=== PATIENT | female | born 1980 ===

== ENCOUNTER 2016-11-08 00:29 | Inpatient (IN) | payer OTHER ==
[2016-11-08] MEDS ORDERED: Labetalol 25mg/5ml Syringe IV STA (01:17)
[2016-11-08] MEDS ORDERED: Aspirin 325 mg EC Tablets PO STA (01:18)
[2016-11-08] MEDS ORDERED: Labetalol 25mg/5ml Syringe ONE (01:23)
[2016-11-08] MEDS ORDERED: Aspirin 325 mg EC Tablets PO ONE (01:23)
[2016-11-08 01:30] LABS: BASO # 0.1 K/uL (0.0-0.2); BASO % 0.5 % (0.0-2.0); EOS # 0.2 K/uL (0.0-0.7); EOS % 1.2 % (0.0-4.0); HEMOGLOBIN 8.7 g/dL (11.0-16.0); LYMPH # 1.8 K/uL (1.0-4.3); LYMPH % 9.8 % (20.0-40.0); MEAN CELL VOLUME 68.6 fL (81.0-99.0); MEAN CORPUSCULAR HEMOGLOBIN 21.7 pg (27.0-31.0); MEAN CORPUSCULAR HGB CONC 31.6 g/dL (33.0-37.0); MONO # 0.8 K/uL (0.0-0.8); MONO % 4.3 % (0.0-10.0); NEUT # 15.4 K/uL (1.8-7.0); NEUT % 84.2 % (50.0-75.0); PLATELET COUNT 246 K/uL (130-400); RBC 4.01 Mil/uL (3.80-5.20); RED CELL DISTRIBUTION WIDTH 20.7 % (11.5-14.5); WHITE BLOOD COUNT 18.3 K/uL (4.8-10.8)
[2016-11-08 01:38] LABS: ALBUMIN 3.8 g/dL (3.5-5.0); PROTHROMBIN TIME 11.2 SECONDS (9.7-12.2)
[2016-11-08 01:41] LABS: ALB/GLOB RATIO 1.2 (1.0-2.1); ALT/SGPT 29 U/L (9-52); AST/SGOT 29 U/L (14-36); BLOOD UREA NITROGEN 55 mg/dL (7-17); CALCIUM 8.9 mg/dl (8.6-10.4); GFR AFRICAN-AMERICAN 8; GFR NON-AFRICAN AMERICAN 7
[2016-11-08 01:43] LABS: SQUAMOUS EPITHIAL 1 /hpf (0-5); URINE BILIRUBIN NEGATIVE (NEGATIVE); URINE BLOOD 1+ (NEGATIVE); URINE CLARITY Clear (Clear); URINE COLOR Straw (YELLOW); URINE GLUCOSE (UA) 1+ mg/dL (Normal); URINE LEUKOCYTE ESTERASE 1+ Leu/uL (Negative); URINE NITRATE NEGATIVE (NEGATIVE); URINE PROTEIN 2+ mg/dL (NEGATIVE); URINE UROBILINOGEN NORMAL mg/dL (0.2-1.0)
[2016-11-08 01:50] LABS: CK-MB 5.22 ng/mL (0.0-3.38)
[2016-11-08] MEDS ORDERED: Potassium Chloride 10 mEq ER Tab PO STA (02:03)
[2016-11-08] MEDS ORDERED: Heparin 25,000units in D5W 250 ML IV ONE (02:13)
[2016-11-08] MEDS ORDERED: Nitroglycerin 2% Ointment Foilpak UD TOP STA (02:15)
[2016-11-08 02:18] LABS: HCG,QUALITATIVE URINE NEGATIVE (NEGATIVE)
[2016-11-08] MEDS ORDERED: Potassium Chloride 20 mEq/15 ml LIQ UD ONE (02:28)
[2016-11-08] MEDS ORDERED: Nitroglycerin 2% Ointment Foilpak UD TOP ONE (02:28)
[2016-11-08 02:33] LABS: B-TYPE NATRIURETIC PEPTIDE 107000 pg/mL (0-450)
[2016-11-08] MEDS ORDERED: Heparin25000 units/250ml 1/2NS 25,000 UNITS/250 ML BAG IV ONE (02:42)
[2016-11-08 03:06] LABS: EOSINOPHIL 2 % (0-4); LYMPHOCYTE 9 % (20-40); MONOCYTE 3 % (0-10); NEUTROPHIL 86 % (50-75); PLATELET ESTIMATE NORMAL (NORMAL); TOTAL CELLS COUNTED 100
[2016-11-08] MEDS ORDERED: Heparin25000 units/250ml 1/2NS 25,000 UNITS/250 ML BAG IV SCH (03:15)
[2016-11-08] MEDS ORDERED: cefTRIAXone IV 1 gm in Dextros 50 ML IV ONE (03:21)
[2016-11-08] MEDS ORDERED: Azithromycin 500 MG in Sodium Chloride 0.9% 250 ML IV STA (03:21)
--- NOTE | 2016-11-08 03:39 | C.PDOC ---
History Of Present Illness 36 year old female presents to the ED with complaints of left sided chest pain and SOB for three days and associated with non-productive cough. Patient notes a history of anemia and HTN for years without the use of any medication. She admits to smoking half a pack of cigarettes a day and is unable to sleep because of the chest pain and SOB. Time Seen by Provider: 11/08/16 01:09 Chief Complaint (Nursing): Chest Pain History Per: Patient History/Exam Limitations: no limitations Onset/Duration Of Symptoms: Days (3) Current Symptoms Are (Timing): Still Present Quality: "Pain" Associated Symptoms: Other (non-productive cough ). denies: Fever, Chills Recent travel outside of the [place]: No Past Medical History Reviewed: Historical Data, Nursing Documentation, Vital Signs Vital Signs: Last Vital Signs Temp 97.7 F 11/08/16 06:00 Pulse 63 11/08/16 06:50 Resp 18 11/08/16 06:50 BP 169/113 H 11/08/16 06:38 Pulse Ox 100 11/08/16 06:50 - Medical History PMH: Anemia, HTN Family History: States: Unknown Family Hx - Social History Hx Alcohol Use: Yes Hx Substance Use: No - Immunization History Hx Tetanus Toxoid Vaccination: No Hx Influenza Vaccination: No Hx Pneumococcal Vaccination: No Review Of Systems Constitutional: Negative for: Fever, Chills Cardiovascular: Positive for: Chest Pain. Negative for: Palpitations Respiratory: Positive for: Shortness of Breath. Negative for: Cough Gastrointestinal: Negative for: Nausea, Vomiting, Abdominal Pain, Diarrhea Physical Exam - Physical Exam Appears: Non-toxic, No Acute Distress, Other (patient much older than stated age ) Skin: Warm, Dry Head: Atraumatic Oral Mucosa: Moist Neck: Supple Chest: Symmetrical, No Deformity Cardiovascular: Rhythm Regular, Other (heart sounds distant ) Gastrointestinal/Abdominal: Soft, No Tenderness, No Distention, No Guarding, No Rebound, Other (abdomen is thin ) Extremity: Normal ROM, No Tenderness, No Other (lower extremities no clubbing, no edema ) ED Course And Treatment - Laboratory Results Result Diagrams: 11/08/16 01:23 11/08/16 04:15 Lab Interpretation: Abnormal (trop 0.7H, K+ 2.2 low, creat 6.9 H) Urine POC: Negative ECG: Interpreted By Me ECG Rhythm: Sinus Rhythm, Sinus Tachycardia ECG Interpretation: Abnormal Interpretation Of ECG: repeat EKG NSR 78, ST dep lateral leads, persistent T^ inversions O2 Sat by Pulse Oximetry: 94 (room air ) Pulse Ox Interpretation: Abnormal - Radiology CXR: Interpreted by Me CXR Interpretation: Yes: Infiltrates (RLL PNA, cardiomegaly, + mild CHF) Progress Note: labetolol IV, NTP, ASA, heparin bolus and drip, Cardizem bolus and drip, bipap, blood cultures and Rocephin/Azithromycin. Pt appears uvolemic , pending diuresis vs hydration for acute renal insufficiency Reevaluation Time: 03:39 Reassessment Condition: Improved Medical Decision Making Medical Decision Making: Uncontrolled HTN and anemia for "years" noncompliant w meds and f/u with PMD Dr. Wang. smoker 1/2 ppd may predispose to RLL PNA CHF/NSTEMI/Renal Failure may be related to uncontrolled HTN Curious HYPOkalemia in renal failure- T^ inversions c/w low K+ KCL PO given, pending repeat chemistry bipap for hypoxiia and pna/chf picture on CXR Disposition Doctor Will See Patient In The: Hospital Counseled Patient/Family Regarding: Studies Performed, Diagnosis - Disposition Disposition: HOSPITALIZED Disposition Time: 03:43 Condition: FAIR - Clinical Impression Clinical Impression: NSTEMI (non-ST elevated myocardial infarction), Hypokalemia, Renal failure, Anemia, Hypertensive urgency, Pneumonia - Scribe Statement The provider has reviewed the documentation as recorded by the Chapinibjuan Brink All medical record entries made by the Chapinibjuan were at my direction and personally dictated by me. I have reviewed the chart and agree that the record accurately reflects my personal performance of the history, physical exam, medical decision making, and the department course for this patient. I have also personally directed, reviewed, and agree with the discharge instructions and disposition.
[2016-11-08] MEDS ORDERED: Azithromycin 500mg/250ML NS 500 MG/250 ML BAG IVPB ONE (03:42)
[2016-11-08 03:51] LABS: ABG ALLEN TEST POS; ARTERIAL BLOOD GAS HCO3 23.1 mmol/L (21-28); ARTERIAL BLOOD GAS O2 SAT 94.4 % (95-98); ARTERIAL BLOOD GAS PCO2 37 mm/Hg (35-45); ARTERIAL BLOOD GAS PH 7.39 (7.35-7.45); ARTERIAL BLOOD GAS PO2 63 mm/Hg (80-100); ARTERIAL BLOOD GAS TCO2 23.5 mmol/L (22-28)
--- NOTE | 2016-11-08 04:07 | CP.PCM.CON ---
History of Present Illness - History of Present Illness History of Present Illness: 36 y/o female with h/o anemia and HTN (was prescribed medications which she didnot take) presents to ER with left sided chest pain and worsening difficulty breathing x 5 days .No associated palpitations,radiation of pain.C/o nausea x 2 days ,no vomiting or diarrhea.In ER she was found to be hypoxic ,tachycardic and hypertensive.Labs with elevated WBC,microcytic anemia,hypokalemia,renal insufficiency,elevated troponin and BNP. Received IV labetalol,placed on 100NRBFM,started on IV heparin and cardizem 3 months ago she went to a physician for leg swelling,labs done and given meds for high blood pressure and anemia.Patient states her Kidneys were normal at that time. Review of Systems - Review of Systems Systems not reviewed;Unavailable: Respiratory Distress - Constitutional Constitutional: Fatigue. absent: Anorexia, Chills, Fever - EENT Eyes: absent: Change in Vision Nose/Mouth/Throat: absent: Nasal Congestion, Dry Mouth - Cardiovascular Cardiovascular: Chest Pain, Chest Pain at Rest, Dyspnea. absent: Claudication, Edema, Pain Radiating to Arm/Neck/Jaw, Rapid Heart Rate Additional comments: had leg edema 3 months ago which is almost normal now as per patient - Respiratory Respiratory: Dyspnea. absent: Chest Congestion, Excessive Mucous Production - Gastrointestinal Gastrointestinal: Nausea. absent: Abdominal Pain, Change in Bowel Habits, Coffee Ground Emesis, Vomiting - Genitourinary Genitourinary: absent: Change in Urinary Stream, Hematuria - Reproductive: Female Reproductive:Female: absent: Heavy Menses - Musculoskeletal Musculoskeletal: absent: Back Pain, Muscle Weakness - Integumentary Integumentary: absent: Bleeding Lesions, Pruritus, Rash - Neurological Neurological: absent: Convulsions, Dizziness, Numbness - Endocrine Endocrine: absent: Cold Intolorance, Excessive Sweating, Heat Intolorance - Hematologic/Lymphatic Hematologic: absent: Easy Bleeding, Easy Bruising Past Patient History - Past Medical History & Family History Past Medical History?: Yes - Past Social History Smoking Status: Light Smoker < 10 Cigarettes Daily Occupation: works in a [employer] Alcohol: Occasional Drugs: Denies - CARDIAC Hx Hypertension: Yes - HEMATOLOGICAL/ONCOLOGICAL Hx Anemia: Yes - PSYCHIATRIC Hx Substance Use: No - SURGICAL HISTORY Hx Surgeries: No Meds Allergies/Adverse Reactions: Allergies Allergy/AdvReac Type Severity Reaction Status Date / Time No Known Allergies Allergy Verified 11/08/16 00:53 - Medications Medications: Current Medications Heparin Sodium/Sodium Chloride (Heparin 74456 Units/250ml 1/2 Normal Saline) 25 ,000 units in 250 mls @ 8.927 mls/hr IV .Q24H ISABELLA; 12 UNITS/KG/HR PRN Reason: Protocol Diltiazem HCl 125 mg/ Sodium (Chloride) 125 mls @ 10 mls/hr IV .[id number] ISABELLA PRN Reason: 10 MG/HR Last Admin: 11/08/16 03:37 Dose: 10 mls/hr Azithromycin 500 mg/ Sodium (Chloride) 250 mls @ 250 mls/hr IV STAT STA Stop: 11/08/16 04:20 Last Admin: 11/08/16 03:59 Dose: 250 mls/hr Physical Exam - Constitutional Appears: In Acute Distress Additional comments: short of breath without O2 - Head Exam Head Exam: ATRAUMATIC, NORMAL INSPECTION, NORMOCEPHALIC - Eye Exam Eye Exam: EOMI, Normal appearance Pupil Exam: NORMAL ACCOMODATION, PERRL - ENT Exam ENT Exam: Mucous Membranes Dry - Neck Exam Neck exam: Positive for: Full Rom, Normal Inspection - Respiratory Exam Respiratory Exam: Clear to Auscultation Bilateral. absent: Rhonchi, Wheezes - Cardiovascular Exam Cardiovascular Exam: REGULAR RHYTHM. absent: JVD - GI/Abdominal Exam GI & Abdominal Exam: Normal Bowel Sounds, Soft. absent: Tenderness - Extremities Exam Extremities exam: Positive for: full ROM, normal inspection, pedal pulses present. Negative for: calf tenderness, joint swelling Additional comments: bilateral trace leg edema - Back Exam Back exam: NORMAL INSPECTION. absent: CVA tenderness (L) - Neurological Exam Neurological exam: Alert, Oriented x3 - Skin Skin Exam: Normal Color, Warm Results - Vital Signs Recent Vital Signs: Last Vital Signs Temp 98.2 F 11/08/16 00:49 Pulse 99 H 11/08/16 01:27 Resp 26 H 11/08/16 01:27 BP 241/161 H 11/08/16 01:27 Pulse Ox 94 L 11/08/16 03:45 - Labs Result Diagrams: 11/08/16 01:23 11/08/16 01:23 Labs: Laboratory Results - last 24 hr 11/08/16 11/08/16 11/08/16 01:23 01:23 01:23 WBC 18.3 H RBC 4.01 Hgb 8.7 L Hct 27.5 L MCV 68.6 L MCH 21.7 L MCHC 31.6 L RDW 20.7 H Plt Count 246 MPV 9.0 Neut % (Auto) 84.2 H Lymph % (Auto) 9.8 L Stephenson % (Auto) 4.3 Eos % (Auto) 1.2 Baso % (Auto) 0.5 Neut # 15.4 H Lymph # 1.8 Stephenson # 0.8 Eos # 0.2 Baso # 0.1 Neutrophils % (Manual) 86 H Lymphocytes % (Manual) 9 L Monocytes % (Manual) 3 Eosinophils % (Manual) 2 Platelet Estimate Normal PT 11.2 INR 1.0 APTT 27 Puncture Site pCO2 pO2 HCO3 ABG pH ABG Total CO2 ABG O2 Saturation ABG Base Excess Sd Test ABG Potassium A-a O2 Difference Respiratory Index Glucose Lactate FiO2 Sodium Potassium Chloride Carbon Dioxide Anion Gap BUN Creatinine Est GFR ( Amer) Est GFR (Non-Af Amer) Random Glucose Calcium Total Bilirubin AST ALT Alkaline Phosphatase Total Creatine Kinase CK-MB (Mass) Troponin I, Quant NT-Pro-B Natriuret Pep Total Protein Albumin Globulin Albumin/Globulin Ratio Arterial Blood Potassium Urine Color Straw Urine Clarity Clear Urine pH 6.0 Ur Specific [place] 1.009 Urine Protein 2+ H Urine Glucose (UA) 1+ Urine Ketones Negative Urine Blood 1+ H Urine Nitrate Negative Urine Bilirubin Negative Urine Urobilinogen Normal Ur Leukocyte Esterase 1+ H Urine WBC (Auto) 31 H Urine RBC (Auto) 4 H Ur Squamous Epith Cells 1 Urine HCG, Qual Negative Alcohol, Quantitative 11/08/16 11/08/16 01:23 03:48 WBC RBC Hgb Hct MCV MCH MCHC RDW Plt Count MPV Neut % (Auto) Lymph % (Auto) Stephenson % (Auto) Eos % (Auto) Baso % (Auto) Neut # Lymph # Stephenson # Eos # Baso # Neutrophils % (Manual) Lymphocytes % (Manual) Monocytes % (Manual) Eosinophils % (Manual) Platelet Estimate PT INR APTT Puncture Site Rr pCO2 37 pO2 63 L HCO3 23.1 ABG pH 7.39 ABG Total CO2 23.5 ABG O2 Saturation 94.4 L ABG Base Excess -2.2 L Sd Test Pos ABG Potassium 2.7 L A-a O2 Difference 604.0 Respiratory Index 9.6 Glucose 174 H Lactate 0.6 L FiO2 100.0 Sodium 131 L 130.0 L Potassium 2.2 L* Chloride 92 L 95.0 L Carbon Dioxide 22 Anion Gap 19 BUN 55 H Creatinine 6.9 H Est GFR ( Amer) 8 Est GFR (Non-Af Amer) 7 Random Glucose 115 H Calcium 8.9 Total Bilirubin 0.7 AST 29 ALT 29 Alkaline Phosphatase 111 Total Creatine Kinase 170 H CK-MB (Mass) 5.22 H Troponin I, Quant 0.7190 H* NT-Pro-B Natriuret Pep 324917 H Total Protein 7.0 Albumin 3.8 Globulin 3.2 Albumin/Globulin Ratio 1.2 Arterial Blood Potassium 2.7 L Urine Color Urine Clarity Urine pH Ur Specific [place] Urine Protein Urine Glucose (UA) Urine Ketones Urine Blood Urine Nitrate Urine Bilirubin Urine Urobilinogen Ur Leukocyte Esterase Urine WBC (Auto) Urine RBC (Auto) Ur Squamous Epith Cells Urine HCG, Qual Alcohol, Quantitative < 10 - EKG Data EKG Interpreted by: Myself EKG shows normal: Sinus rhythm - EKG Data EKG comments: T inversions in lateral leads,ST depressionc - Imaging and Cardiology Chest x-ray Status: Image reviewed by me (enlarged heart,Right sided infiltrate, ?CHF) Assessment & Plan - Assessment and Plan (Free Text) Assessment: 1.Respiratory Insufficiency and hypoxia-Pneumonia r/o CHF BIPAP,antibiotics f/u with cultures 2.NSTEMI /CHF-Elevated troponin and BNP on IV heparin,received aspirin and NTG add beta sidney ECHO 3.Renal insufficiency-f/u BUN/Cr Renal ultrasound 4.Electrolyte imbalance-Hypokalemia/Hyponatremia- potassium given in ER.Rpt labs and replace as needed 5.Microcytic anemia-denies GI blood loss or heavy menstrual bleeding. iron ,TIBC
[2016-11-08] MEDS ORDERED: cefTRIAXone IV 1 gm in Dextros 50 ML IVPB ONE (04:15)
[2016-11-08 04:19] LABS: ALBUMIN 3.4 g/dL (3.5-5.0)
[2016-11-08 04:22] LABS: ALB/GLOB RATIO 1.1 (1.0-2.1); CALCIUM 8.5 mg/dl (8.6-10.4)
[2016-11-08 05:56] LABS: ABG ALLEN TEST POS; ARTERIAL BLOOD GAS HCO3 23.6 mmol/L (21-28); ARTERIAL BLOOD GAS HEMOGLOBIN 8.2 g/dL (11.7-17.4); ARTERIAL BLOOD GAS O2 SAT 99.3 % (95-98); ARTERIAL BLOOD GAS PCO2 37 mm/Hg (35-45); ARTERIAL BLOOD GAS PO2 252 mm/Hg (80-100)
[2016-11-08] MEDS ORDERED: Nitroglycerin 2% Ointment Foilpak UD TOP SCH ×2 (06:00)
[2016-11-08] MEDS ORDERED: Furosemide 100 MG in Sodium Chloride 0.9% 90 ML IVP SCH (09:00)
[2016-11-08] MEDS ORDERED: Nitroglycerin 50mg in D5W 50 MG/250 ML BOTTLE IV SCH (09:00)
[2016-11-08] MEDS: Furosemide 100 MG in Sodium Chloride 0.9% 90 ML IV SCH ×2 (09:34→20:44)
--- NOTE | 2016-11-08 09:45 | CP.PCM.CON ---
History of Present Illness - History of Present Illness History of Present Illness: 36 y/o female with h/o anemia and HTN (was prescribed medications which she didnot take) presents to ER with left sided chest pain and worsening difficulty breathing x 5 days .No associated palpitations,radiation of pain.C/o nausea x 2 days ,no vomiting or diarrhea.In ER she was found to be hypoxic ,tachycardic and hypertensive.Labs with elevated WBC,microcytic anemia,hypokalemia,renal insufficiency,elevated troponin and BNP. Received IV labetalol,placed on 100NRBFM,started on IV heparin and cardizem 3 months ago she went to a physician for leg swelling,labs done and given meds for high blood pressure and anemia.Patient states her Kidneys were normal at that time. PMH: CHRONIC ANEMIA HTN PSH- NONE FH- MOTHER EXP- HAD ESRD ON DIALYSIS FROM [facility]-HEAV[facility] SMOKER NO ILLICITS, ETOH MEDS- MANY NSAIDs RECENTLY Review of Systems - Constitutional Constitutional: Fatigue, Headache, Weakness - Respiratory Respiratory: Cough, Dyspnea on Exertion - Gastrointestinal Gastrointestinal: Nausea, Vomiting - Genitourinary Genitourinary: Difficulty Urinating - Musculoskeletal Musculoskeletal: Arthralgias, Muscle Cramps, Muscle Weakness, Stiffness - Neurological Neurological: Weakness Past Patient History - Past Medical History & Family History Past Medical History?: Yes - Past Social History Smoking Status: Heavy Smoker > 10 Cigarettes Daily Chewing Tobacco Use: No Cigar Use: No - CARDIAC Hx Hypertension: Yes - PULMONARY Hx Respiratory Disorders: No - NEUROLOGICAL Hx Neurological Disorder: No - HEENT Hx HEENT Problems: Yes Other/Comment: eyeglasses for reading - RENAL Hx Chronic Kidney Disease: No - ENDOCRINE/METABOLIC Hx Endocrine Disorders: No - HEMATOLOGICAL/ONCOLOGICAL Hx Anemia: Yes - INTEGUMENTARY Hx Dermatological Problems: No - MUSCULOSKELETAL/RHEUMATOLOGICAL Hx Musculoskeletal Disorders: No Hx Falls: Yes - GASTROINTESTINAL Hx Gastrointestinal Disorders: No - GENITOURINARY/GYNECOLOGICAL Hx Genitourinary Disorders: No - PSYCHIATRIC Hx Substance Use: No - SURGICAL HISTORY Hx Surgeries: No - ANESTHESIA Hx Anesthesia: No Hx Anesthesia Reactions: No Hx Malignant Hyperthermia: No Has any member of the family had a problem w/ anesthesia?: No Meds Allergies/Adverse Reactions: Allergies Allergy/AdvReac Type Severity Reaction Status Date / Time No Known Allergies Allergy Verified 11/08/16 00:53 - Medications Medications: Current Medications Amlodipine Besylate (Norvasc) 5 mg PO DAILY [facility] Aspirin (Ecotrin) 81 mg PO DAILY [facility] Last Admin: 11/08/16 09:34 Dose: 81 mg Famotidine (Pepcid) 20 mg IVP DAILY [facility] Hydralazine HCl (Apresoline) 25 mg PO QID [facility] Heparin Sodium/Sodium Chloride (Heparin 37451 Units/250ml 1/2 Normal Saline) 25 ,000 units in 250 mls @ 8.927 mls/hr IV .Q24H ISABELLA; 12 UNITS/KG/HR PRN Reason: Protocol Last Admin: 11/08/16 04:10 Dose: Not Given Ceftriaxone Sodium 1 gm/ (Sodium Chloride) 100 mls @ 100 mls/hr IVPB DAILY [facility] Azithromycin 500 mg/ Sodium (Chloride) 250 mls @ 250 mls/hr IVPB DAILY [facility] Nitroglycerin/Dextrose (Nitroglycerin 50 Mg/250 Ml D5w) 50 mg in 250 mls @ 7.5 mls/hr IV .Q24H ISABELLA; 25 MCG/MIN PRN Reason: Protocol Last Admin: 11/08/16 09:18 Dose: 25 mcg/min, 7.5 mls/hr Potassium Chloride (Potassium Chloride 20 Meq/100 Ml) 20 meq in 100 mls @ 50 mls/hr IVPB Q2 ISABELLA Stop: 11/08/16 13:59 Last Admin: 11/08/16 09:30 Dose: 50 mls/hr Furosemide 100 mg/ Sodium (Chloride) 100 mls @ 10 mls/hr IV .Q10H ISABELLA PRN Reason: 10 MG/HR Last Admin: 11/08/16 09:34 Dose: 10 mls/hr Pneumococcal Polyvalent Vaccine (Pneumovax 23 Vaccine) 0.5 ml IM .ONCE ONE Stop: 11/10/16 10:01 Physical Exam - Constitutional Appears: In Acute Distress, Agitated - Head Exam Head Exam: ATRAUMATIC, NORMAL INSPECTION - Eye Exam Eye Exam: EOMI, Normal appearance - Neck Exam Neck exam: Positive for: Normal Inspection. Negative for: Tenderness - Respiratory Exam Respiratory Exam: Rales, Respiratory Distress - Cardiovascular Exam Cardiovascular Exam: REGULAR RHYTHM, +S1 - GI/Abdominal Exam GI & Abdominal Exam: Soft. absent: Tenderness - Extremities Exam Extremities exam: Positive for: normal inspection, tenderness - Neurological Exam Neurological exam: CN II-XII Intact, Oriented x3 - Skin Skin Exam: Dry, Warm Results - Vital Signs Recent Vital Signs: Last Vital Signs Temp 97.6 F 11/08/16 08:00 Pulse 75 11/08/16 09:18 Resp 24 11/08/16 09:18 BP 185/129 H 11/08/16 09:34 Pulse Ox 100 11/08/16 09:18 - Labs Result Diagrams: 11/08/16 01:23 11/08/16 04:15 Labs: Laboratory Results - last 24 hr 11/08/16 11/08/16 11/08/16 03:48 04:15 05:10 Puncture Site Rr R rad pCO2 37 37 pO2 63 L 252 H HCO3 23.1 23.6 ABG pH 7.39 7.40 ABG Total CO2 23.5 24.0 ABG O2 Saturation 94.4 L 99.3 H ABG Base Excess -2.2 L -1.7 ABG Hemoglobin 8.2 L ABG Carboxyhemoglobin 2.9 H POC ABG HHb (Measured) 0.7 ABG Methemoglobin 1.5 Sd Test Pos Pos ABG Potassium 2.7 L A-a O2 Difference 604.0 415.0 Respiratory Index 9.6 1.6 Hgb O2 Saturation 94.9 L Sodium 130.0 L 128 L Chloride 95.0 L 90 L Glucose 174 H Lactate 0.6 L FiO2 100.0 100.0 Potassium 2.7 L Carbon Dioxide 21 L Anion Gap 20 BUN 56 H Creatinine 6.9 H Est GFR ( Amer) 8 Est GFR (Non-Af Amer) 7 Random Glucose 169 H Calcium 8.5 L Total Bilirubin 0.6 AST 30 ALT 32 Alkaline Phosphatase 112 Total Protein 6.5 Albumin 3.4 L Globulin 3.1 Albumin/Globulin Ratio 1.1 TSH 3rd Generation 2.23 Arterial Blood Potassium 2.7 L Assessment & Plan (1) Proteinuria Status: Acute (2) NSTEMI (non-ST elevated myocardial infarction) Status: Acute (3) AMPARO (acute kidney injury) Status: Acute (4) CHF (congestive heart failure) Status: Acute (5) Hypokalemia Status: Acute (6) Hypertensive emergency Status: Acute - Assessment and Plan (Free Text) Plan: RENAL US CHECK SEROLOGIES, IMMUNOLOGICS CONTROL BP REPLETE K MONITOR UO DIALYSIS IF NOT BETTER- DISCUSSED WITH FAMILY
[2016-11-08 09:57] LABS: BASO # 0.1 K/uL (0.0-0.2); BASO % 0.6 % (0.0-2.0); EOS # 0.2 K/uL (0.0-0.7); EOS % 1.3 % (0.0-4.0); LYMPH # 1.9 K/uL (1.0-4.3); LYMPH % 11.9 % (20.0-40.0); MEAN CORPUSCULAR HEMOGLOBIN 21.9 pg (27.0-31.0); MEAN CORPUSCULAR HGB CONC 31.7 g/dL (33.0-37.0); MEAN PLATELET VOLUME 7.6 fL (7.2-11.7); MONO # 0.6 K/uL (0.0-0.8); MONO % 3.8 % (0.0-10.0); NEUT # 12.8 K/uL (1.8-7.0); NEUT % 82.4 % (50.0-75.0); RBC 3.63 Mil/uL (3.80-5.20); RED CELL DISTRIBUTION WIDTH 21.2 % (11.5-14.5); WHITE BLOOD COUNT 15.6 K/uL (4.8-10.8)
[2016-11-08] MEDS ORDERED: Azithromycin 500 MG in Sodium Chloride 0.9% 250 ML IVPB SCH (10:00)
[2016-11-08 10:08] LABS: IRON 35 ug/dL (37-170)
--- NOTE | 2016-11-08 10:08 | RAD ---
HISTORY: R/O INFILTRATE COMPARISON: No prior. FINDINGS: LUNGS: There is pulmonary venous congestion, interstitial edema and pulmonary redistribution. PLEURA: There are probable small pleural effusions and fluid in the horizontal fissure. No pneumothorax. CARDIOVASCULAR: There is moderate cardiomegaly. OSSEOUS STRUCTURES: No significant abnormalities. VISUALIZED UPPER ABDOMEN: Normal. OTHER FINDINGS: None. IMPRESSION: Findings are most compatible with mild congestive heart failure.
[2016-11-08 10:10] LABS: CALCIUM 8.8 mg/dl (8.6-10.4); MAGNESIUM 2.4 mg/dL (1.6-2.3)
--- NOTE | 2016-11-08 10:23 | RAD ---
HISTORY: pneumonia COMPARISON: 11/08/2016. FINDINGS: LUNGS: There is pulmonary venous congestion and redistribution worse since the prior examination. There is bibasilar airspace disease PLEURA: There are bilateral pleural effusions. . No pneumothorax. CARDIOVASCULAR: Normal. OSSEOUS STRUCTURES: No significant abnormalities. VISUALIZED UPPER ABDOMEN: Normal. OTHER FINDINGS: None. IMPRESSION: Bibasilar airspace disease could represent atelectasis or pneumonia in conjunction with bilateral pleural effusions. Also noted is pulmonary venous congestion which could represent a component of worsening congestive heart failure.
[2016-11-08 10:27] LABS: % IRON SATURATION 11 (20-55); TOTAL IRON BINDING CAPACITY 328 ug/dL (250-450)
[2016-11-08 10:37] LABS: CK-MB 3.56 ng/mL (0.0-3.38)
[2016-11-08] MEDS: niCARdipine IV 25 MG in Sodium Chloride 0.9% 240 ML IV PRN ×2 (11:40→20:47)
[2016-11-08 12:28] LABS: COMPLEMENT C4 30.2 mg/dL (14.0-44.0)
[2016-11-08 12:52] LABS: HEPATITIS B SURFACE AG NEGATIVE (NEGATIVE)
[2016-11-08 13:09] LABS: HEPATITIS C ANTIBODY NEGATIVE (NEGATIVE)
--- NOTE | 2016-11-08 14:26 | US ---
PROCEDURE: Ultrasound of the Kidneys HISTORY: AMPARO COMPARISON: None available. TECHNIQUE: Grayscale imaging was performed. FINDINGS: RIGHT KIDNEY: Measures: 10.0 cm. Normal in size, contour with diffuse increased echogenicity. No stone, solid mass lesion or hydronephrosis visualized. LEFT KIDNEY: Measures: 10.2 cm. Normal in size, contour with diffuse increased echogenicity. No stone, solid mass lesion or hydronephrosis visualized. OTHER FINDINGS: None. IMPRESSION: Medical renal disease. No hydronephrosis or nephrolithiasis.
[2016-11-08] MEDS: Heparin25000 units/250ml 1/2NS 25,000 UNITS/250 ML BAG IV SCH (20:52)
[2016-11-08 21:06] LABS: MEAN CELL VOLUME 69.8 fL (81.0-99.0); MEAN CORPUSCULAR HGB CONC 31.4 g/dL (33.0-37.0); MEAN PLATELET VOLUME 7.5 fL (7.2-11.7); RBC 4.09 Mil/uL (3.80-5.20); RED CELL DISTRIBUTION WIDTH 21.1 % (11.5-14.5); WHITE BLOOD COUNT 21.1 K/uL (4.8-10.8)
[2016-11-08 21:07] LABS: CK-MB 2.74 ng/mL (0.0-3.38)
[2016-11-08 21:15] LABS: ALB/GLOB RATIO 1.1 (1.0-2.1); ALBUMIN 3.5 g/dL (3.5-5.0); CALCIUM 8.9 mg/dl (8.6-10.4); MAGNESIUM 2.1 mg/dL (1.6-2.3)
--- NOTE | 2016-11-08 23:29 | CP.PCM.HP ---
History of Present Illness - History of Present Illness History of Present Illness: CC: chest pain and shortness of breath HPI: Mrs Trimble is a 36 yo F who presented to the ED with worsening left sided chest pain and shortness of breath which began 3 days ago. She rated the pain a 8/10. She describes the pain as squeezing. She denied any radiation of pain. She also endorses a non-productive cough which she's had for the past few months. She did not note any remitting factors. Exacerbating factors include activity such as walking a few flights of steps. She states she's had trouble sleeping due to her cough. PMD: PSHx: n/a Medications: An unknown BP med (noncompliant) Allergies: NKA FamHx: Mother , was ESRD on dialysis from [place] Social: half a pack a day smoker for 15 yrs; social drinker; denies illicit drug use Present on Admission - Present on Admission Any Indicators Present on Admission: No Review of Systems - Constitutional Constitutional: Weight Gain. absent: Fever, Night Sweats - EENT Eyes: absent: Blurred Vision, Change in Vision, Pain Ears: absent: Ear Pain Nose/Mouth/Throat: absent: Nasal Congestion - Cardiovascular Cardiovascular: Chest Pain, Chest Pain at Rest, Chest Pain with Activity, Pedal Edema. absent: Pain Radiating to Arm/Neck/Jaw - Respiratory Respiratory: Dyspnea on Exertion, Wheezing. absent: Pain with Coughing - Gastrointestinal Gastrointestinal: absent: Abdominal Pain, Diarrhea - Genitourinary Genitourinary: absent: Dysuria - Musculoskeletal Musculoskeletal: Back Pain. absent: Joint Swelling, Muscle Weakness - Integumentary Integumentary: absent: Erythema, Lesions - Neurological Neurological: absent: Behavioral Changes, Headaches, Tingling - Endocrine Endocrine: absent: Palpitations, Polyuria - Hematologic/Lymphatic Hematologic: absent: Easy Bleeding Past Patient History - Past Medical History & Family History Past Medical History?: Yes - Past Social History Smoking Status: Heavy Smoker > 10 Cigarettes Daily Chewing Tobacco Use: No Cigar Use: No - CARDIAC Hx Hypertension: Yes - PULMONARY Hx Respiratory Disorders: No - NEUROLOGICAL Hx Neurological Disorder: No - HEENT Hx HEENT Problems: Yes Other/Comment: eyeglasses for reading - RENAL Hx Chronic Kidney Disease: No - ENDOCRINE/METABOLIC Hx Endocrine Disorders: No - HEMATOLOGICAL/ONCOLOGICAL Hx Anemia: Yes - INTEGUMENTARY Hx Dermatological Problems: No - MUSCULOSKELETAL/RHEUMATOLOGICAL Hx Musculoskeletal Disorders: No Hx Falls: Yes - GASTROINTESTINAL Hx Gastrointestinal Disorders: No - GENITOURINARY/GYNECOLOGICAL Hx Genitourinary Disorders: No - PSYCHIATRIC Hx Substance Use: No - SURGICAL HISTORY Hx Surgeries: No - ANESTHESIA Hx Anesthesia: No Hx Anesthesia Reactions: No Hx Malignant Hyperthermia: No Has any member of the family had a problem w/ anesthesia?: No Meds Allergies/Adverse Reactions: Allergies Allergy/AdvReac Type Severity Reaction Status Date / Time No Known Allergies Allergy Verified 11/08/16 00:53 Physical Exam - Constitutional Appears: Well, Non-toxic, No Acute Distress - Head Exam Head Exam: NORMAL INSPECTION - Eye Exam Eye Exam: EOMI, Normal appearance, PERRL - ENT Exam ENT Exam: Mucous Membranes Moist - Neck Exam Neck exam: Positive for: Full Rom, Normal Inspection - Respiratory Exam Respiratory Exam: Wheezes, NORMAL BREATHING PATTERN - Cardiovascular Exam Cardiovascular Exam: REGULAR RHYTHM, RRR, +S1, +S2 - GI/Abdominal Exam GI & Abdominal Exam: Normal Bowel Sounds - Rectal Exam Rectal Exam: Deferred - Extremities Exam Extremities exam: Positive for: pedal edema - Neurological Exam Neurological exam: Alert, Oriented x3 - Psychiatric Exam Psychiatric exam: Normal Affect, Normal Mood - Skin Skin Exam: Dry, Intact, Normal Color, Warm Results - Vital Signs Recent Vital Signs: Last Vital Signs Temp 99 F 11/08/16 20:00 Pulse 91 H 11/08/16 22:31 Resp 21 11/08/16 22:31 BP 170/97 H 11/08/16 22:31 Pulse Ox 94 L 11/08/16 22:31 - Labs Result Diagrams: 11/08/16 20:58 11/08/16 20:58 Labs: Laboratory Results - last 24 hr 11/08/16 11/08/16 11/08/16 03:48 04:15 05:10 WBC RBC Hgb Hct MCV MCH MCHC RDW Plt Count MPV Neut % (Auto) Lymph % (Auto) Bollinger % (Auto) Eos % (Auto) Baso % (Auto) Neut # Lymph # Bollinger # Eos # Baso # APTT Puncture Site Rr R rad pCO2 37 37 pO2 63 L 252 H HCO3 23.1 23.6 ABG pH 7.39 7.40 ABG Total CO2 23.5 24.0 ABG O2 Saturation 94.4 L 99.3 H ABG Base Excess -2.2 L -1.7 ABG Hemoglobin 8.2 L ABG Carboxyhemoglobin 2.9 H POC ABG HHb (Measured) 0.7 ABG Methemoglobin 1.5 Sd Test Pos Pos ABG Potassium 2.7 L A-a O2 Difference 604.0 415.0 Respiratory Index 9.6 1.6 Hgb O2 Saturation 94.9 L Sodium 130.0 L 128 L Chloride 95.0 L 90 L Glucose 174 H Lactate 0.6 L FiO2 100.0 100.0 Potassium 2.7 L Carbon Dioxide 21 L Anion Gap 20 BUN 56 H Creatinine 6.9 H Est GFR ( Amer) 8 Est GFR (Non-Af Amer) 7 Random Glucose 169 H Calcium 8.5 L Phosphorus Magnesium Iron TIBC % Saturation Total Bilirubin 0.6 AST 30 ALT 32 Alkaline Phosphatase 112 Total Creatine Kinase CK-MB (Mass) Troponin I, Quant Total Protein 6.5 Albumin 3.4 L Globulin 3.1 Albumin/Globulin Ratio 1.1 Procalcitonin TSH 3rd Generation 2.23 Arterial Blood Potassium 2.7 L Complement C3 Complement C4 Hep Bs Antigen Hepatitis C Antibody Blood Type Blood Type Confirm Antibody Screen 11/08/16 11/08/16 11/08/16 09:45 09:45 09:45 WBC RBC Hgb Hct MCV MCH MCHC RDW Plt Count MPV Neut % (Auto) Lymph % (Auto) Bollinger % (Auto) Eos % (Auto) Baso % (Auto) Neut # Lymph # Bollinger # Eos # Baso # APTT Puncture Site pCO2 pO2 HCO3 ABG pH ABG Total CO2 ABG O2 Saturation ABG Base Excess ABG Hemoglobin ABG Carboxyhemoglobin POC ABG HHb (Measured) ABG Methemoglobin Sd Test ABG Potassium A-a O2 Difference Respiratory Index Hgb O2 Saturation Sodium 131 L Chloride 95 L Glucose Lactate FiO2 Potassium 2.6 L Carbon Dioxide 20 L Anion Gap 19 BUN 57 H Creatinine 7.1 H Est GFR ( Amer) 8 Est GFR (Non-Af Amer) 6 Random Glucose 103 Calcium 8.8 Phosphorus 8.3 H Magnesium 2.4 H Iron 35 L TIBC 328 % Saturation 11 L Total Bilirubin AST ALT Alkaline Phosphatase Total Creatine Kinase 98 CK-MB (Mass) 3.56 H Troponin I, Quant 0.6830 H* Total Protein Albumin Globulin Albumin/Globulin Ratio Procalcitonin 0.37 TSH 3rd Generation Arterial Blood Potassium Complement C3 Complement C4 Hep Bs Antigen Hepatitis C Antibody Blood Type Blood Type Confirm Antibody Screen 11/08/16 11/08/16 11/08/16 09:45 10:19 12:04 WBC 15.6 H RBC 3.63 L Hgb 8.0 L Hct 25.0 L MCV 69.0 L MCH 21.9 L MCHC 31.7 L RDW 21.2 H Plt Count 211 MPV 7.6 Neut % (Auto) 82.4 H Lymph % (Auto) 11.9 L Bollinger % (Auto) 3.8 Eos % (Auto) 1.3 Baso % (Auto) 0.6 Neut # 12.8 H Lymph # 1.9 Bollinger # 0.6 Eos # 0.2 Baso # 0.1 APTT 31 Puncture Site pCO2 pO2 HCO3 ABG pH ABG Total CO2 ABG O2 Saturation ABG Base Excess ABG Hemoglobin ABG Carboxyhemoglobin POC ABG HHb (Measured) ABG Methemoglobin Sd Test ABG Potassium A-a O2 Difference Respiratory Index Hgb O2 Saturation Sodium Chloride Glucose Lactate FiO2 Potassium Carbon Dioxide Anion Gap BUN Creatinine Est GFR ( Amer) Est GFR (Non-Af Amer) Random Glucose Calcium Phosphorus Magnesium Iron TIBC % Saturation Total Bilirubin AST ALT Alkaline Phosphatase Total Creatine Kinase CK-MB (Mass) Troponin I, Quant Total Protein Albumin Globulin Albumin/Globulin Ratio Procalcitonin TSH 3rd Generation Arterial Blood Potassium Complement C3 Complement C4 Hep Bs Antigen Negative Hepatitis C Antibody Negative Blood Type Blood Type Confirm Antibody Screen 11/08/16 11/08/16 11/08/16 12:04 14:00 20:55 WBC RBC Hgb Hct MCV MCH MCHC RDW Plt Count MPV Neut % (Auto) Lymph % (Auto) Bollinger % (Auto) Eos % (Auto) Baso % (Auto) Neut # Lymph # Bollinger # Eos # Baso # APTT Puncture Site pCO2 pO2 HCO3 ABG pH ABG Total CO2 ABG O2 Saturation ABG Base Excess ABG Hemoglobin ABG Carboxyhemoglobin POC ABG HHb (Measured) ABG Methemoglobin Sd Test ABG Potassium A-a O2 Difference Respiratory Index Hgb O2 Saturation Sodium Chloride Glucose Lactate FiO2 Potassium Carbon Dioxide Anion Gap BUN Creatinine Est GFR ( Amer) Est GFR (Non-Af Amer) Random Glucose Calcium Phosphorus Magnesium Iron TIBC % Saturation Total Bilirubin AST ALT Alkaline Phosphatase Total Creatine Kinase 67 CK-MB (Mass) 2.74 Troponin I, Quant 0.5570 H* Total Protein Albumin Globulin Albumin/Globulin Ratio Procalcitonin TSH 3rd Generation Arterial Blood Potassium Complement C3 117.0 Complement C4 30.2 Hep Bs Antigen Hepatitis C Antibody Blood Type A POSITIVE Blood Type Confirm A POSITIVE Antibody Screen Negative 11/08/16 11/08/16 20:58 20:58 WBC 21.1 H RBC 4.09 Hgb 9.0 L Hct 28.6 L MCV 69.8 L MCH 22.0 L MCHC 31.4 L RDW 21.1 H Plt Count 264 MPV 7.5 Neut % (Auto) Lymph % (Auto) Bollinger % (Auto) Eos % (Auto) Baso % (Auto) Neut # Lymph # Bollinger # Eos # Baso # APTT Puncture Site pCO2 pO2 HCO3 ABG pH ABG Total CO2 ABG O2 Saturation ABG Base Excess ABG Hemoglobin ABG Carboxyhemoglobin POC ABG HHb (Measured) ABG Methemoglobin Sd Test ABG Potassium A-a O2 Difference Respiratory Index Hgb O2 Saturation Sodium 136 Chloride 97 L Glucose Lactate FiO2 Potassium 2.7 L Carbon Dioxide 26 Anion Gap 16 BUN 27 H Creatinine 3.9 H Est GFR ( Amer) 16 Est GFR (Non-Af Amer) 13 Random Glucose 113 H Calcium 8.9 Phosphorus 3.4 Magnesium 2.1 Iron TIBC % Saturation Total Bilirubin 1.1 AST 32 ALT 29 Alkaline Phosphatase 111 Total Creatine Kinase CK-MB (Mass) Troponin I, Quant Total Protein 6.6 Albumin 3.5 Globulin 3.1 Albumin/Globulin Ratio 1.1 Procalcitonin TSH 3rd Generation Arterial Blood Potassium Complement C3 Complement C4 Hep Bs Antigen Hepatitis C Antibody Blood Type Blood Type Confirm Antibody Screen Assessment & Plan (1) Chest pain Assessment and Plan: NSTEMI /CHF-Elevated troponin and BNP EKG interpretation by Dr Reno - T inversions in lateral leads, ST depression on IV heparin, received aspirin and NTG add beta sidney ECHO Status: Acute (2) Hypoxia Assessment and Plan: 1.Respiratory Insufficiency and hypoxia - Pneumonia r/o CHF BIPAP f/u with blood/urine cultures f/u mycoplasma pneumoniae serologies azithromycin 500mg ivp daily ceftriaxone 1gm ivp daily mrsa screen legionella AG urine Status: Acute (3) AMPARO (acute kidney injury) Assessment and Plan: Renal insufficiency - f/u BUN/Cr Renal ultrasound Per NephDr Julian worley [11/08]: "RENAL US CHECK SEROLOGIES, IMMUNOLOGICS CONTROL BP REPLETE K MONITOR UO DIALYSIS IF NOT BETTER- DISCUSSED WITH FAMILY" Status: Acute (4) Anemia Assessment and Plan: Microcytic anemia - denies GI blood loss or heavy menstrual bleeding f/u iron, TIBC FOBT collected Status: Acute (5) CHF (congestive heart failure) Assessment and Plan: elevated BNP ECHO Ordered Status: Acute (6) Hypokalemia Assessment and Plan: Electrolyte imbalance - Hypokalemia/Hyponatremia - potassium given in ER. Monitor labs and replace as needed Status: Acute (7) Prophylactic measure Assessment and Plan: pepcid 20mg IVP daily heparin drip Status: Acute
--- NOTE | 2016-11-09 03:06 | CP.PCM.PN ---
<Stew Mendez - Last Filed: 11/09/16 15:26> Subjective - Date & Time of Evaluation Date of Evaluation: 11/09/16 Time of Evaluation: 07:00 - Subjective Subjective: PGY-[address] Garcia's Service: Patient was examined at bedside in the ICU. Patient was surrounded by family and friends. Patient did not appear in acute distress. She stated she was comfortable. Patient was on bipap. She denied chest pain, shortness of breath, abdominal pain, diarrhea, constipation, vomiting, bleeding. Objective - Vital Signs/Intake and Output Vital Signs (last 24 hours): Temp Pulse Resp BP Pulse Ox 99 F 91 H 24 159/88 H 93 L 11/09/16 00:00 11/09/16 02:01 11/09/16 02:01 11/09/16 02:01 11/09/16 02:01 Intake and Output: 11/08/16 11/09/16 18:59 06:59 Intake Total 456.7 287.3 Output Total 250 500 Balance 206.7 -212.7 - Medications Medications: Current Medications Amlodipine Besylate (Norvasc) 5 mg PO DAILY [facility] Last Admin: 11/08/16 09:52 Dose: 5 mg Aspirin (Ecotrin) 81 mg PO DAILY [facility] Last Admin: 11/08/16 09:34 Dose: 81 mg Famotidine (Pepcid) 20 mg IVP DAILY [facility] Last Admin: 11/08/16 09:43 Dose: 20 mg Hydralazine HCl (Apresoline) 25 mg PO Q6 [facility] Last Admin: 11/08/16 23:39 Dose: 25 mg Ceftriaxone Sodium 1 gm/ (Sodium Chloride) 100 mls @ 100 mls/hr IVPB DAILY [facility] Last Admin: 11/08/16 09:52 Dose: 100 mls/hr Azithromycin 500 mg/ Sodium (Chloride) 250 mls @ 250 mls/hr IVPB DAILY [facility] Last Admin: 11/08/16 10:21 Dose: 250 mls/hr Furosemide 100 mg/ Sodium (Chloride) 100 mls @ 10 mls/hr IV .Q10H ISABELLA PRN Reason: 10 MG/HR Last Admin: 11/08/16 20:44 Dose: 10 mls/hr Nicardipine HCl 25 mg/ Sodium (Chloride) 250 mls @ 50 mls/hr IV .Q5H PRN; Protocol; 5 MG/HR PRN Reason: PER PROTOCOL Last Admin: 11/08/16 20:47 Dose: 2.5 mg/hr, 25 mls/hr Heparin Sodium/Sodium Chloride (Heparin 22621 Units/250ml 1/2 Normal Saline) 25 ,000 units in 250 mls @ 11.902 mls/hr IV .Q21H1M ISABELLA; 16 UNITS/KG/HR PRN Reason: Protocol Last Admin: 11/08/16 20:52 Dose: Not Given Ondansetron HCl (Zofran Inj) 4 mg IVP Q8 PRN PRN Reason: Nausea/Vomiting Last Admin: 11/08/16 11:15 Dose: 4 mg Pneumococcal Polyvalent Vaccine (Pneumovax 23 Vaccine) 0.5 ml IM .ONCE ONE Stop: 11/10/16 10:01 - Labs Labs: 11/08/16 20:58 11/08/16 20:58 PT 11.2 SECONDS (9.7-12.2) 11/08/16 01:23 INR 1.0 11/08/16 01:23 APTT 31 SECONDS (21-34) 11/08/16 20:58 - Constitutional Appears: Well, Non-toxic, No Acute Distress - Head Exam Head Exam: NORMAL INSPECTION - Eye Exam Eye Exam: EOMI, Normal appearance Pupil Exam: PERRL - ENT Exam ENT Exam: Mucous Membranes Moist - Neck Exam Neck Exam: Full ROM, Normal Inspection - Respiratory Exam Respiratory Exam: Clear to Ausculation Bilateral, NORMAL BREATHING PATTERN - Cardiovascular Exam Cardiovascular Exam: REGULAR RHYTHM, +S1, +S2. absent: Murmur - GI/Abdominal Exam GI & Abdominal Exam: Soft, Normal Bowel Sounds. absent: Tenderness - Rectal Exam Rectal Exam: Deferred - Extremities Exam Extremities Exam: Normal Inspection, Pedal Edema - Neurological Exam Neurological Exam: Alert, Awake, Oriented x3 - Psychiatric Exam Psychiatric exam: Normal Affect, Normal Mood - Skin Skin Exam: Dry, Intact, Normal Color, Warm Assessment and Plan (1) Chest pain Status: Acute (2) Hypoxia Status: Acute (3) AMPARO (acute kidney injury) Status: Acute (4) Anemia Status: Acute (5) CHF (congestive heart failure) Status: Acute (6) Hypokalemia Status: Acute (7) Prophylactic measure Status: Acute - Assessment and Plan (Free Text) Assessment: (1) Chest pain Assessment and Plan: NSTEMI /CHF-Elevated troponin and BNP EKG interpretation by Dr Reno - T inversions in lateral leads, ST depression on IV heparin, received aspirin and NTG add beta sidney ECHO Status: Acute (2) Hypoxia Assessment and Plan: 1.Respiratory Insufficiency and hypoxia - Pneumonia r/o CHF BIPAP f/u with blood/urine cultures f/u mycoplasma pneumoniae serologies azithromycin 500mg ivp daily ceftriaxone 1gm ivp daily mrsa screen legionella AG urine Status: Acute (3) AMPARO (acute kidney injury) Assessment and Plan: Renal insufficiency - f/u BUN/Cr Renal ultrasound Per Dr Julian Gordon [11/08]: "RENAL US CHECK SEROLOGIES, IMMUNOLOGICS CONTROL BP REPLETE K MONITOR UO DIALYSIS IF NOT BETTER- DISCUSSED WITH FAMILY" Status: Acute (4) Anemia Assessment and Plan: Microcytic anemia - denies GI blood loss or heavy menstrual bleeding f/u iron, TIBC FOBT collected Status: Acute (5) CHF (congestive heart failure) Assessment and Plan: elevated BNP ECHO Ordered Status: Acute (6) Hypokalemia Assessment and Plan: Electrolyte imbalance - Hypokalemia/Hyponatremia - potassium given in ER. Monitor labs and replace as needed Status: Acute (7) Prophylactic measure Assessment and Plan: pepcid 20mg IVP daily heparin drip Status: Acute <Patric Garcia Jr. - Last Filed: 11/18/16 10:12> Objective - Vital Signs/Intake and Output Vital Signs (last 24 hours): Temp Pulse Resp BP Pulse Ox 98.2 F 73 20 118/72 100 11/18/16 08:18 11/18/16 08:18 11/18/16 08:18 11/18/16 08:18 11/18/16 08:18 - Medications Medications: Current Medications Amlodipine Besylate (Norvasc) 10 mg PO DAILY [facility] Last Admin: 11/18/16 09:37 Dose: 10 mg Aspirin (Ecotrin) 81 mg PO DAILY [facility] Last Admin: 11/18/16 09:37 Dose: 81 mg Calcium Acetate (Phoslo) 667 mg PO TIDCC [facility] Clonidine HCl (Catapres) 0.1 mg PO BID [facility] Last Admin: 11/18/16 09:37 Dose: 0.1 mg Epoetin Glenn (Procrit) 10,000 unit IV MWF [facility] Last Admin: 11/17/16 10:37 Dose: 10,000 unit Escitalopram Oxalate (Lexapro) 10 mg PO DAILY [facility] Last Admin: 11/18/16 09:37 Dose: 10 mg Famotidine (Pepcid) 20 mg PO DAILY [facility] Last Admin: 11/18/16 09:37 Dose: 20 mg Ferric Sodium Gluconate Complex (Ferrlecit) 125 mg IVPB DAILY [facility] Stop: 11/22/16 13:16 Last Admin: 11/18/16 09:36 Dose: 125 mg Heparin Sodium (Porcine) (Heparin) 5,000 units SC Q8 [facility] Last Admin: 11/18/16 08:03 Dose: 5,000 units Ibuprofen (Motrin Tab) 600 mg PO TID PRN PRN Reason: Pain, Mild (1-3) Last Admin: 11/17/16 18:26 Dose: 600 mg Labetalol HCl (Normodyne) 300 mg PO TID [facility] Last Admin: 11/18/16 09:38 Dose: 300 mg Lorazepam (Ativan) 0.5 mg PO Q6H PRN PRN Reason: Anxiety Last Admin: 11/17/16 00:26 Dose: 0.5 mg Minoxidil (Minoxidil) 5 mg PO BID [facility] Last Admin: 11/18/16 09:37 Dose: 5 mg Nicotine (Nicoderm Cq) 1 patch TD DAILY [facility] Last Admin: 11/18/16 09:38 Dose: 1 patch Ondansetron HCl (Zofran Inj) 4 mg IVP Q8 PRN PRN Reason: Nausea/Vomiting Last Admin: 11/13/16 16:00 Dose: 4 mg Oxycodone/Acetaminophen (Percocet 5/325 Mg Tab) 1 tab PO Q6H PRN PRN Reason: Pain, severe (8-10) Stop: 11/21/16 06:46 Last Admin: 11/18/16 06:51 Dose: 1 tab - Labs Labs: 11/18/16 08:27 11/18/16 08:27 PT 11.9 SECONDS (9.7-12.2) 11/13/16 06:34 INR 1.1 11/13/16 06:34 APTT 27 SECONDS (21-34) D 11/13/16 06:34 Attending/Attestation - Attestation I have personally seen and examined this patient.: Yes I have fully participated in the care of the patient.: Yes I have reviewed all pertinent clinical information, including history, physical exam and plan: Yes Notes (Text): 11/18/16 10:12 Agree with resident note and findings
[2016-11-09] MEDS: Heparin25000 units/250ml 1/2NS 25,000 UNITS/250 ML BAG IV SCH ×2 (03:40→17:05)
[2016-11-09 06:30] LABS: HEMOGLOBIN 8.1 g/dL (11.0-16.0); MEAN CELL VOLUME 71.4 fL (81.0-99.0); MEAN CORPUSCULAR HEMOGLOBIN 22.4 pg (27.0-31.0); MEAN CORPUSCULAR HGB CONC 31.4 g/dL (33.0-37.0); MEAN PLATELET VOLUME 7.7 fL (7.2-11.7); RBC 3.63 Mil/uL (3.80-5.20); RED CELL DISTRIBUTION WIDTH 21.4 % (11.5-14.5); WHITE BLOOD COUNT 15.3 K/uL (4.8-10.8)
[2016-11-09 06:46] LABS: ALBUMIN 3.2 g/dL (3.5-5.0)
[2016-11-09 06:49] LABS: ALB/GLOB RATIO 1.1 (1.0-2.1); CALCIUM 8.6 mg/dl (8.6-10.4)
[2016-11-09 06:50] LABS: MAGNESIUM 2.1 mg/dL (1.6-2.3)
[2016-11-09] MEDS: niCARdipine IV 25 MG in Sodium Chloride 0.9% 240 ML IV PRN (06:55)
[2016-11-09] MEDS ORDERED: Potassium Chloride 20 mEq/15 ml LIQ UD PO ONE (09:07)
--- NOTE | 2016-11-09 09:13 | CP.CCUPN ---
CCU Subjective - Physician Review Events Since Last Encounter (Free Text): 11/09/16 09:13 Yesterday patient condition got worse. She developed increasing CHF, increasing fluid overload in the lungs. Spoke to the mule tender. I also spoke to the patient's family in details about the overall prognosis and condition. Family agreed and the patient agreed to have the hemodialysis catheter, and the hemodialysis. Patient received hemodialysis yesterday 1 dose. Received also 1 unit of blood transfusion during the hemodialysis. Almost 1.5 L of fluid removed. Patient is currently on nicotine drip, and the Lasix drip. The potassium level is still low. Patient is otherwise awake and responding, comfortable. Patient is on Ventimask. Doing much better than yesterday. Patient is currently on heparin drip for possible non-ST elevation LA. She is feeling much hungry at this time, still nothing by mouth at this time. Patient may need to get warmer dialysis, and the may need 1 more unit of blood transfusion today. Vital signs reviewed No neck vein distention noted Chest good air entry bilaterally, no wheezing or rales noted CVS regular heart sound, no murmur noted Abdomen soft, nontender. Extremities no pedal edema [employer] alert awake oriented 3, no functional neurological deficit Patient has a right-sided femoral hemodialysis catheter Labs reviewed The potassium level is still low Assessment and recommendation: 36-year-old female with a history of noncompliance, hypertension, admitted with acute heart failure, acute renal insufficiency, acute pulmonary edema, severe hypokalemia. Status post to 1 hemodialysis. Patient needed to be a transition. We'll discontinue Lasix drip today. Patient may get a dialysis today. We'll transfuse 1 unit if needed. Potassium supplementation. We'll start the feeding. Out of bed to chair. We'll follow the patient CCU Objective - Vital Signs / Intake & Output Vital Signs (Last 4 hours): Vital Signs Temp Pulse Resp BP Pulse Ox 11/09/16 08:31 86 22 156/87 H 97 11/09/16 08:01 86 18 147/84 97 11/09/16 08:00 97.4 F L 88 29 H 96 11/09/16 07:31 85 21 158/87 H 98 11/09/16 07:01 86 21 154/88 H 98 11/09/16 07:00 88 22 95 11/09/16 06:31 86 16 155/85 H 94 L 11/09/16 06:01 87 22 162/93 H 93 L 11/09/16 06:00 87 21 94 L 11/09/16 05:31 85 17 157/93 H 94 L Intake and Output (Last 8hrs): Intake & Output 11/08/16 11/09/16 11/09/16 22:59 06:59 14:59 Intake Total 386.6 552.3 84.8 Output Total 500 400 Balance -113.4 152.3 84.8 Intake: IV 225 250 Intake, IV Amount 161.6 302.3 84.8 Left Hand 100 175 50 Right Antecubital 41.6 92.3 29.8 Right Hand 20 35 5 Oral 0 0 0 Output: Urine 500 400 Urine, Voided 500 400 Other: # Voids Urine, Voided 0 0 0 # Bowel Movements 0 0 - Medications Active Medications: Active Medications Generic Name Dose Route Start Last Admin Trade Name Freq PRN Reason Stop Dose Admin Amlodipine Besylate 10 mg 11/09/16 10:00 Norvasc PO DAILY ISABELLA Aspirin 81 mg 11/08/16 10:00 11/08/16 09:34 Ecotrin PO 81 mg DAILY ISABELLA Administration Famotidine 20 mg 11/08/16 10:00 11/08/16 09:43 Pepcid IVP 20 mg DAILY ISABELLA Administration Hydralazine HCl 25 mg 11/09/16 00:00 11/09/16 06:11 Apresoline PO 25 mg Q6 ISABELLA Administration Ceftriaxone Sodium 1 gm/ 100 mls @ 100 mls/hr 11/08/16 10:00 11/08/16 09:52 Sodium Chloride IVPB 100 mls/hr DAILY ISABELLA Administration Nicardipine HCl 25 mg/ Sodium 250 mls @ 50 mls/hr 11/08/16 11:15 11/09/16 06: 55 Chloride IV 2.5 mg/hr .Q5H PRN 25 mls/hr PER PROTOCOL Administration Protocol 5 MG/HR Heparin Sodium/Sodium Chloride 25,000 units in 250 mls @ 14.878 mls/hr 20:45 11/09/16 03:40 Heparin 33181 Units/250ml 1/2 Normal Saline IV 20 units/kg/hr .[id number] ISABELLA 14.878 mls/hr Protocol Administration 20 UNITS/KG/HR Potassium Chloride 20 meq in 100 mls @ 50 mls/hr 11/09/16 10:00 Potassium Chloride 20 Meq/100 Ml IVPB 11/12/16 10:01 Q2 ISABELLA Labetalol HCl 100 mg 11/09/16 10:00 Trandate PO TID ISABELLA Ondansetron HCl 4 mg 11/08/16 11:13 11/08/16 11:15 Zofran Inj IVP 4 mg Q8 PRN Administration Nausea/Vomiting Pneumococcal Polyvalent Vaccine 0.5 ml 11/10/16 10:00 Pneumovax 23 Vaccine IM 11/10/16 10:01 .ONCE ONE - Patient Studies Lab Studies: Lab Studies 11/09/16 11/09/16 11/09/16 Range/Units 06:18 06:15 06:15 WBC 15.3 H (4.8-10.8) K/uL RBC 3.63 L (3.80-5.20) Mil/uL Hgb 8.1 L (11.0-16.0) g/dL Hct 25.9 L (34.0-47.0) % MCV 71.4 L (81.0-99.0) fL MCH 22.4 L (27.0-31.0) pg MCHC 31.4 L (33.0-37.0) g/dL RDW 21.4 H (11.5-14.5) % Plt Count 226 (130-400) K/uL MPV 7.7 (7.2-11.7) fL Neut % (Auto) (50.0-75.0) % Lymph % (Auto) (20.0-40.0) % Webster % (Auto) (0.0-10.0) % Eos % (Auto) (0.0-4.0) % Baso % (Auto) (0.0-2.0) % Neut # (1.8-7.0) K/uL Lymph # (1.0-4.3) K/uL Webster # (0.0-0.8) K/uL Eos # (0.0-0.7) K/uL Baso # (0.0-0.2) K/uL APTT (21-34) SECONDS Sodium 132 (132-148) mmol/L Potassium 2.5 L* (3.6-5.2) mmol/L Chloride 92 L (98-107) mmol/L Carbon Dioxide 26 (22-30) mmol/L Anion Gap 17 (10-20) BUN 32 H (7-17) mg/dL Creatinine 4.8 H (0.7-1.2) MG/DL Est GFR ( Amer) 12 Est GFR (Non-Af Amer) 10 Random Glucose 104 (65-105) mg/dL Calcium 8.6 (8.6-10.4) mg/dl Phosphorus 5.6 H (2.5-4.5) mg/dL Magnesium 2.1 (1.6-2.3) mg/dL Iron (37-170) ug/dL TIBC (250-450) ug/dL % Saturation 11 L (20-55) Total Bilirubin 0.8 (0.2-1.3) mg/dL AST 25 (14-36) U/L ALT 29 (9-52) U/L Alkaline Phosphatase 96 (38-126) U/L Total Creatine Kinase (30-135) U/L CK-MB (Mass) (0.0-3.38) ng/mL Troponin I, Quant (0.00-0.120) ng/mL Total Protein 6.1 L (6.3-8.3) g/dL Albumin 3.2 L (3.5-5.0) g/dL Globulin 2.8 (2.2-3.9) gm/dL Albumin/Globulin Ratio 1.1 (1.0-2.1) Procalcitonin (0.19-0.49) NG/ML Complement C3 (88.0-165.0) mg/dL Complement C4 (14.0-44.0) mg/dL Hep Bs Antigen (NEGATIVE) Hepatitis C Antibody (NEGATIVE) Blood Type Blood Type Confirm Antibody Screen 11/09/16 11/08/16 11/08/16 Range/Units 02:39 20:58 20:58 WBC 21.1 H (4.8-10.8) K/uL RBC 4.09 (3.80-5.20) Mil/uL Hgb 9.0 L (11.0-16.0) g/dL Hct 28.6 L (34.0-47.0) % MCV 69.8 L (81.0-99.0) fL MCH 22.0 L (27.0-31.0) pg MCHC 31.4 L (33.0-37.0) g/dL RDW 21.1 H (11.5-14.5) % Plt Count 264 (130-400) K/uL MPV 7.5 (7.2-11.7) fL Neut % (Auto) (50.0-75.0) % Lymph % (Auto) (20.0-40.0) % Webster % (Auto) (0.0-10.0) % Eos % (Auto) (0.0-4.0) % Baso % (Auto) (0.0-2.0) % Neut # (1.8-7.0) K/uL Lymph # (1.0-4.3) K/uL Webster # (0.0-0.8) K/uL Eos # (0.0-0.7) K/uL Baso # (0.0-0.2) K/uL APTT 24 D (21-34) SECONDS Sodium 136 (132-148) mmol/L Potassium 2.7 L (3.6-5.2) mmol/L Chloride 97 L (98-107) mmol/L Carbon Dioxide 26 (22-30) mmol/L Anion Gap 16 (10-20) BUN 27 H (7-17) mg/dL Creatinine 3.9 H (0.7-1.2) MG/DL Est GFR ( Amer) 16 Est GFR (Non-Af Amer) 13 Random Glucose 113 H (65-105) mg/dL Calcium 8.9 (8.6-10.4) mg/dl Phosphorus 3.4 (2.5-4.5) mg/dL Magnesium 2.1 (1.6-2.3) mg/dL Iron (37-170) ug/dL TIBC (250-450) ug/dL % Saturation (20-55) Total Bilirubin 1.1 (0.2-1.3) mg/dL AST 32 (14-36) U/L ALT 29 (9-52) U/L Alkaline Phosphatase 111 (38-126) U/L Total Creatine Kinase (30-135) U/L CK-MB (Mass) (0.0-3.38) ng/mL Troponin I, Quant (0.00-0.120) ng/mL Total Protein 6.6 (6.3-8.3) g/dL Albumin 3.5 (3.5-5.0) g/dL Globulin 3.1 (2.2-3.9) gm/dL Albumin/Globulin Ratio 1.1 (1.0-2.1) Procalcitonin (0.19-0.49) NG/ML Complement C3 (88.0-165.0) mg/dL Complement C4 (14.0-44.0) mg/dL Hep Bs Antigen (NEGATIVE) Hepatitis C Antibody (NEGATIVE) Blood Type Blood Type Confirm Antibody Screen 11/08/16 11/08/16 11/08/16 Range/Units 20:58 20:55 14:00 WBC (4.8-10.8) K/uL RBC (3.80-5.20) Mil/uL Hgb (11.0-16.0) g/dL Hct (34.0-47.0) % MCV (81.0-99.0) fL MCH (27.0-31.0) pg MCHC (33.0-37.0) g/dL RDW (11.5-14.5) % Plt Count (130-400) K/uL MPV (7.2-11.7) fL Neut % (Auto) (50.0-75.0) % Lymph % (Auto) (20.0-40.0) % Webster % (Auto) (0.0-10.0) % Eos % (Auto) (0.0-4.0) % Baso % (Auto) (0.0-2.0) % Neut # (1.8-7.0) K/uL Lymph # (1.0-4.3) K/uL Webster # (0.0-0.8) K/uL Eos # (0.0-0.7) K/uL Baso # (0.0-0.2) K/uL APTT 31 (21-34) SECONDS Sodium (132-148) mmol/L Potassium (3.6-5.2) mmol/L Chloride (98-107) mmol/L Carbon Dioxide (22-30) mmol/L Anion Gap (10-20) BUN (7-17) mg/dL Creatinine (0.7-1.2) MG/DL Est GFR ( Amer) Est GFR (Non-Af Amer) Random Glucose (65-105) mg/dL Calcium (8.6-10.4) mg/dl Phosphorus (2.5-4.5) mg/dL Magnesium (1.6-2.3) mg/dL Iron (37-170) ug/dL TIBC (250-450) ug/dL % Saturation (20-55) Total Bilirubin (0.2-1.3) mg/dL AST (14-36) U/L ALT (9-52) U/L Alkaline Phosphatase (38-126) U/L Total Creatine Kinase 67 (30-135) U/L CK-MB (Mass) 2.74 (0.0-3.38) ng/mL Troponin I, Quant 0.5570 H* (0.00-0.120) ng/mL Total Protein (6.3-8.3) g/dL Albumin (3.5-5.0) g/dL Globulin (2.2-3.9) gm/dL Albumin/Globulin Ratio (1.0-2.1) Procalcitonin (0.19-0.49) NG/ML Complement C3 (88.0-165.0) mg/dL Complement C4 (14.0-44.0) mg/dL Hep Bs Antigen (NEGATIVE) Hepatitis C Antibody (NEGATIVE) Blood Type A POSITIVE Blood Type Confirm A POSITIVE Antibody Screen Negative 11/08/16 11/08/16 11/08/16 Range/Units 12:04 12:04 10:19 WBC (4.8-10.8) K/uL RBC (3.80-5.20) Mil/uL Hgb (11.0-16.0) g/dL Hct (34.0-47.0) % MCV (81.0-99.0) fL MCH (27.0-31.0) pg MCHC (33.0-37.0) g/dL RDW (11.5-14.5) % Plt Count (130-400) K/uL MPV (7.2-11.7) fL Neut % (Auto) (50.0-75.0) % Lymph % (Auto) (20.0-40.0) % Webster % (Auto) (0.0-10.0) % Eos % (Auto) (0.0-4.0) % Baso % (Auto) (0.0-2.0) % Neut # (1.8-7.0) K/uL Lymph # (1.0-4.3) K/uL Webster # (0.0-0.8) K/uL Eos # (0.0-0.7) K/uL Baso # (0.0-0.2) K/uL APTT 31 (21-34) SECONDS Sodium (132-148) mmol/L Potassium (3.6-5.2) mmol/L Chloride (98-107) mmol/L Carbon Dioxide (22-30) mmol/L Anion Gap (10-20) BUN (7-17) mg/dL Creatinine (0.7-1.2) MG/DL Est GFR ( Amer) Est GFR (Non-Af Amer) Random Glucose (65-105) mg/dL Calcium (8.6-10.4) mg/dl Phosphorus (2.5-4.5) mg/dL Magnesium (1.6-2.3) mg/dL Iron (37-170) ug/dL TIBC (250-450) ug/dL % Saturation (20-55) Total Bilirubin (0.2-1.3) mg/dL AST (14-36) U/L ALT (9-52) U/L Alkaline Phosphatase (38-126) U/L Total Creatine Kinase (30-135) U/L CK-MB (Mass) (0.0-3.38) ng/mL Troponin I, Quant (0.00-0.120) ng/mL Total Protein (6.3-8.3) g/dL Albumin (3.5-5.0) g/dL Globulin (2.2-3.9) gm/dL Albumin/Globulin Ratio (1.0-2.1) Procalcitonin (0.19-0.49) NG/ML Complement C3 117.0 (88.0-165.0) mg/dL Complement C4 30.2 (14.0-44.0) mg/dL Hep Bs Antigen Negative (NEGATIVE) Hepatitis C Antibody Negative (NEGATIVE) Blood Type Blood Type Confirm Antibody Screen 11/08/16 11/08/16 11/08/16 Range/Units 09:45 09:45 09:45 WBC 15.6 H (4.8-10.8) K/uL RBC 3.63 L (3.80-5.20) Mil/uL Hgb 8.0 L (11.0-16.0) g/dL Hct 25.0 L (34.0-47.0) % MCV 69.0 L (81.0-99.0) fL MCH 21.9 L (27.0-31.0) pg MCHC 31.7 L (33.0-37.0) g/dL RDW 21.2 H (11.5-14.5) % Plt Count 211 (130-400) K/uL MPV 7.6 (7.2-11.7) fL Neut % (Auto) 82.4 H (50.0-75.0) % Lymph % (Auto) 11.9 L (20.0-40.0) % Webster % (Auto) 3.8 (0.0-10.0) % Eos % (Auto) 1.3 (0.0-4.0) % Baso % (Auto) 0.6 (0.0-2.0) % Neut # 12.8 H (1.8-7.0) K/uL Lymph # 1.9 (1.0-4.3) K/uL Webster # 0.6 (0.0-0.8) K/uL Eos # 0.2 (0.0-0.7) K/uL Baso # 0.1 (0.0-0.2) K/uL APTT (21-34) SECONDS Sodium 131 L (132-148) mmol/L Potassium 2.6 L (3.6-5.2) mmol/L Chloride 95 L (98-107) mmol/L Carbon Dioxide 20 L (22-30) mmol/L Anion Gap 19 (10-20) BUN 57 H (7-17) mg/dL Creatinine 7.1 H (0.7-1.2) MG/DL Est GFR ( Amer) 8 Est GFR (Non-Af Amer) 6 Random Glucose 103 (65-105) mg/dL Calcium 8.8 (8.6-10.4) mg/dl Phosphorus 8.3 H (2.5-4.5) mg/dL Magnesium 2.4 H (1.6-2.3) mg/dL Iron (37-170) ug/dL TIBC (250-450) ug/dL % Saturation (20-55) Total Bilirubin (0.2-1.3) mg/dL AST (14-36) U/L ALT (9-52) U/L Alkaline Phosphatase (38-126) U/L Total Creatine Kinase 98 (30-135) U/L CK-MB (Mass) 3.56 H (0.0-3.38) ng/mL Troponin I, Quant 0.6830 H* (0.00-0.120) ng/mL Total Protein (6.3-8.3) g/dL Albumin (3.5-5.0) g/dL Globulin (2.2-3.9) gm/dL Albumin/Globulin Ratio (1.0-2.1) Procalcitonin 0.37 (0.19-0.49) NG/ML Complement C3 (88.0-165.0) mg/dL Complement C4 (14.0-44.0) mg/dL Hep Bs Antigen (NEGATIVE) Hepatitis C Antibody (NEGATIVE) Blood Type Blood Type Confirm Antibody Screen 11/08/16 Range/Units 09:45 WBC (4.8-10.8) K/uL RBC (3.80-5.20) Mil/uL Hgb (11.0-16.0) g/dL Hct (34.0-47.0) % MCV (81.0-99.0) fL MCH (27.0-31.0) pg MCHC (33.0-37.0) g/dL RDW (11.5-14.5) % Plt Count (130-400) K/uL MPV (7.2-11.7) fL Neut % (Auto) (50.0-75.0) % Lymph % (Auto) (20.0-40.0) % Webster % (Auto) (0.0-10.0) % Eos % (Auto) (0.0-4.0) % Baso % (Auto) (0.0-2.0) % Neut # (1.8-7.0) K/uL Lymph # (1.0-4.3) K/uL Webster # (0.0-0.8) K/uL Eos # (0.0-0.7) K/uL Baso # (0.0-0.2) K/uL APTT (21-34) SECONDS Sodium (132-148) mmol/L Potassium (3.6-5.2) mmol/L Chloride (98-107) mmol/L Carbon Dioxide (22-30) mmol/L Anion Gap (10-20) BUN (7-17) mg/dL Creatinine (0.7-1.2) MG/DL Est GFR ( Amer) Est GFR (Non-Af Amer) Random Glucose (65-105) mg/dL Calcium (8.6-10.4) mg/dl Phosphorus (2.5-4.5) mg/dL Magnesium (1.6-2.3) mg/dL Iron 35 L (37-170) ug/dL TIBC 328 (250-450) ug/dL % Saturation 11 L (20-55) Total Bilirubin (0.2-1.3) mg/dL AST (14-36) U/L ALT (9-52) U/L Alkaline Phosphatase (38-126) U/L Total Creatine Kinase (30-135) U/L CK-MB (Mass) (0.0-3.38) ng/mL Troponin I, Quant (0.00-0.120) ng/mL Total Protein (6.3-8.3) g/dL Albumin (3.5-5.0) g/dL Globulin (2.2-3.9) gm/dL Albumin/Globulin Ratio (1.0-2.1) Procalcitonin (0.19-0.49) NG/ML Complement C3 (88.0-165.0) mg/dL Complement C4 (14.0-44.0) mg/dL Hep Bs Antigen (NEGATIVE) Hepatitis C Antibody (NEGATIVE) Blood Type Blood Type Confirm Antibody Screen Laboratory Results - last 24 hr 11/08/16 11/08/16 11/08/16 09:45 09:45 09:45 WBC RBC Hgb Hct MCV MCH MCHC RDW Plt Count MPV Neut % (Auto) Lymph % (Auto) Webster % (Auto) Eos % (Auto) Baso % (Auto) Neut # Lymph # Webster # Eos # Baso # APTT Sodium 131 L Potassium 2.6 L Chloride 95 L Carbon Dioxide 20 L Anion Gap 19 BUN 57 H Creatinine 7.1 H Est GFR ( Amer) 8 Est GFR (Non-Af Amer) 6 Random Glucose 103 Calcium 8.8 Phosphorus 8.3 H Magnesium 2.4 H Iron 35 L TIBC 328 % Saturation 11 L Total Bilirubin AST ALT Alkaline Phosphatase Total Creatine Kinase 98 CK-MB (Mass) 3.56 H Troponin I, Quant 0.6830 H* Total Protein Albumin Globulin Albumin/Globulin Ratio Procalcitonin 0.37 Complement C3 Complement C4 Hep Bs Antigen Hepatitis C Antibody Blood Type Blood Type Confirm Antibody Screen 11/08/16 11/08/16 11/08/16 09:45 10:19 12:04 WBC 15.6 H RBC 3.63 L Hgb 8.0 L Hct 25.0 L MCV 69.0 L MCH 21.9 L MCHC 31.7 L RDW 21.2 H Plt Count 211 MPV 7.6 Neut % (Auto) 82.4 H Lymph % (Auto) 11.9 L Webster % (Auto) 3.8 Eos % (Auto) 1.3 Baso % (Auto) 0.6 Neut # 12.8 H Lymph # 1.9 Webster # 0.6 Eos # 0.2 Baso # 0.1 APTT 31 Sodium Potassium Chloride Carbon Dioxide Anion Gap BUN Creatinine Est GFR ( Amer) Est GFR (Non-Af Amer) Random Glucose Calcium Phosphorus Magnesium Iron TIBC % Saturation Total Bilirubin AST ALT Alkaline Phosphatase Total Creatine Kinase CK-MB (Mass) Troponin I, Quant Total Protein Albumin Globulin Albumin/Globulin Ratio Procalcitonin Complement C3 Complement C4 Hep Bs Antigen Negative Hepatitis C Antibody Negative Blood Type Blood Type Confirm Antibody Screen 11/08/16 11/08/16 11/08/16 12:04 14:00 20:55 WBC RBC Hgb Hct MCV MCH MCHC RDW Plt Count MPV Neut % (Auto) Lymph % (Auto) Webster % (Auto) Eos % (Auto) Baso % (Auto) Neut # Lymph # Webster # Eos # Baso # APTT Sodium Potassium Chloride Carbon Dioxide Anion Gap BUN Creatinine Est GFR ( Amer) Est GFR (Non-Af Amer) Random Glucose Calcium Phosphorus Magnesium Iron TIBC % Saturation Total Bilirubin AST ALT Alkaline Phosphatase Total Creatine Kinase 67 CK-MB (Mass) 2.74 Troponin I, Quant 0.5570 H* Total Protein Albumin Globulin Albumin/Globulin Ratio Procalcitonin Complement C3 117.0 Complement C4 30.2 Hep Bs Antigen Hepatitis C Antibody Blood Type A POSITIVE Blood Type Confirm A POSITIVE Antibody Screen Negative 11/08/16 11/08/16 11/08/16 20:58 20:58 20:58 WBC 21.1 H RBC 4.09 Hgb 9.0 L Hct 28.6 L MCV 69.8 L MCH 22.0 L MCHC 31.4 L RDW 21.1 H Plt Count 264 MPV 7.5 Neut % (Auto) Lymph % (Auto) Webster % (Auto) Eos % (Auto) Baso % (Auto) Neut # Lymph # Webster # Eos # Baso # APTT 31 Sodium 136 Potassium 2.7 L Chloride 97 L Carbon Dioxide 26 Anion Gap 16 BUN 27 H Creatinine 3.9 H Est GFR ( Amer) 16 Est GFR (Non-Af Amer) 13 Random Glucose 113 H Calcium 8.9 Phosphorus 3.4 Magnesium 2.1 Iron TIBC % Saturation Total Bilirubin 1.1 AST 32 ALT 29 Alkaline Phosphatase 111 Total Creatine Kinase CK-MB (Mass) Troponin I, Quant Total Protein 6.6 Albumin 3.5 Globulin 3.1 Albumin/Globulin Ratio 1.1 Procalcitonin Complement C3 Complement C4 Hep Bs Antigen Hepatitis C Antibody Blood Type Blood Type Confirm Antibody Screen 11/09/16 11/09/16 11/09/16 02:39 06:15 06:15 WBC 15.3 H RBC 3.63 L Hgb 8.1 L Hct 25.9 L MCV 71.4 L MCH 22.4 L MCHC 31.4 L RDW 21.4 H Plt Count 226 MPV 7.7 Neut % (Auto) Lymph % (Auto) Webster % (Auto) Eos % (Auto) Baso % (Auto) Neut # Lymph # Webster # Eos # Baso # APTT 24 D Sodium Potassium Chloride Carbon Dioxide Anion Gap BUN Creatinine Est GFR ( Amer) Est GFR (Non-Af Amer) Random Glucose Calcium Phosphorus Magnesium Iron TIBC % Saturation 11 L Total Bilirubin AST ALT Alkaline Phosphatase Total Creatine Kinase CK-MB (Mass) Troponin I, Quant Total Protein Albumin Globulin Albumin/Globulin Ratio Procalcitonin Complement C3 Complement C4 Hep Bs Antigen Hepatitis C Antibody Blood Type Blood Type Confirm Antibody Screen 11/09/16 06:18 WBC RBC Hgb Hct MCV MCH MCHC RDW Plt Count MPV Neut % (Auto) Lymph % (Auto) Webster % (Auto) Eos % (Auto) Baso % (Auto) Neut # Lymph # Webster # Eos # Baso # APTT Sodium 132 Potassium 2.5 L* Chloride 92 L Carbon Dioxide 26 Anion Gap 17 BUN 32 H Creatinine 4.8 H Est GFR ( Amer) 12 Est GFR (Non-Af Amer) 10 Random Glucose 104 Calcium 8.6 Phosphorus 5.6 H Magnesium 2.1 Iron TIBC % Saturation Total Bilirubin 0.8 AST 25 ALT 29 Alkaline Phosphatase 96 Total Creatine Kinase CK-MB (Mass) Troponin I, Quant Total Protein 6.1 L Albumin 3.2 L Globulin 2.8 Albumin/Globulin Ratio 1.1 Procalcitonin Complement C3 Complement C4 Hep Bs Antigen Hepatitis C Antibody Blood Type Blood Type Confirm Antibody Screen EKG/Cardiology Studies: Cardiology / EKG Studies 11/08/16 09:00 ELECTROCARDIOGRAM Routine Comment: Mode Of Transportation: PORTABLE Reason For Exam: bird pain,[place] Critical Care Progress Note - Nutrition Nutrition: Nutrition Category Date Time Status Heart Healthy Diet [DIET] Diets 11/09/16 Dinner Ordered
--- NOTE | 2016-11-09 10:55 | RAD ---
HISTORY: chf COMPARISON: 11/08/2016 FINDINGS: LUNGS: There is redemonstration of pulmonary venous congestion and fluid in the minor fissure with patchy airspace disease in his in right lower lobe and left upper lobe. PLEURA: No significant pleural effusion identified, no pneumothorax apparent. CARDIOVASCULAR: Normal. OSSEOUS STRUCTURES: No significant abnormalities. VISUALIZED UPPER ABDOMEN: Normal. OTHER FINDINGS: None. IMPRESSION: Findings are most compatible with congestive heart failure with question of developing left upper lobe pneumonia. Follow-up is advised.
[2016-11-09 15:30] LABS: BASO % 0.2 % (0.0-2.0); EOS # 0.2 K/uL (0.0-0.7); EOS % 1.5 % (0.0-4.0); HEMOGLOBIN 7.6 g/dL (11.0-16.0); LYMPH # 1.7 K/uL (1.0-4.3); LYMPH % 11.3 % (20.0-40.0); MEAN CELL VOLUME 71.3 fL (81.0-99.0); MEAN CORPUSCULAR HEMOGLOBIN 22.2 pg (27.0-31.0); MEAN CORPUSCULAR HGB CONC 31.2 g/dL (33.0-37.0); MEAN PLATELET VOLUME 7.7 fL (7.2-11.7); MONO # 0.6 K/uL (0.0-0.8); NEUT # 12.1 K/uL (1.8-7.0); RBC 3.4 Mil/uL (3.80-5.20); RED CELL DISTRIBUTION WIDTH 21.5 % (11.5-14.5); WHITE BLOOD COUNT 14.6 K/uL (4.8-10.8)
[2016-11-09 15:49] LABS: ALB/GLOB RATIO 1.1 (1.0-2.1)
[2016-11-09 15:50] LABS: CALCIUM 8.3 mg/dl (8.6-10.4)
[2016-11-10 06:52] LABS: ALBUMIN 3.1 g/dL (3.5-5.0)
[2016-11-10 06:55] LABS: ALB/GLOB RATIO 1.1 (1.0-2.1)
[2016-11-10 06:56] LABS: CALCIUM 8.6 mg/dl (8.6-10.4); MAGNESIUM 2.2 mg/dL (1.6-2.3)
[2016-11-10 07:00] LABS: BASO # 0.1 K/uL (0.0-0.2); BASO % 0.5 % (0.0-2.0); EOS # 0.5 K/uL (0.0-0.7); EOS % 3.4 % (0.0-4.0); HEMOGLOBIN 7.9 g/dL (11.0-16.0); LYMPH # 1.5 K/uL (1.0-4.3); LYMPH % 10.5 % (20.0-40.0); MEAN CORPUSCULAR HEMOGLOBIN 22.6 pg (27.0-31.0); MONO # 0.6 K/uL (0.0-0.8); MONO % 4.4 % (0.0-10.0); NEUT # 11.7 K/uL (1.8-7.0); NEUT % 81.2 % (50.0-75.0); RBC 3.49 Mil/uL (3.80-5.20); RED CELL DISTRIBUTION WIDTH 21.9 % (11.5-14.5); WHITE BLOOD COUNT 14.5 K/uL (4.8-10.8)
[2016-11-10] MEDS: Heparin25000 units/250ml 1/2NS 25,000 UNITS/250 ML BAG IV SCH (07:50)
[2016-11-10] MEDS ORDERED: Potassium Chloride 20 mEq/15 ml LIQ UD PO ONE (08:10)
[2016-11-10 09:24] LABS: URINE 24 HOUR TOTAL PROTEIN 1504.5 mg/24hr (42-225)
--- NOTE | 2016-11-10 09:41 | CP.PCM.CON ---
History of Present Illness - History of Present Illness History of Present Illness: Cardiology Consult Note for Dr. Carvajal Reason for consult: NSTEMI, CHF 36 yo F admitted 11/08 for worsening L sided chest pain and SOB for 3 days. Patient complained of dyspnea with exertion when climbing a flight of stairs, being SOB when walking 3 blocks, and orthopnea. She denied any bilateral leg swelling at this time but reports that 3 months ago she had marked swelling in both lower extremities. Patient was found to have elevated troponin 0.719--> 0.683--> 0.[address] changes. proBNP on admission was 107,000. Patient was seen and examined while getting HD. Patient has R femoral HD catheter in place; patient had first HD on 11/08. She denies any acute complaints of chest pain, palpitations, SOB, cough, abd pain, nausea, vomiting, bowel/ baldder complaints, pain/swelling in her legs bilaterally. PSHx: n/a Medications: An unknown BP med (noncompliant) Allergies: NKA FamHx: Mother , was ESRD on dialysis from [place] Social: half a pack a day smoker for 15 yrs; social drinker; denies illicit drug use Review of Systems - Constitutional Constitutional: As Per HPI. absent: Chills, Fever - Cardiovascular Cardiovascular: As Per HPI, Dyspnea, Dyspnea on Exertion, Orthopnea. absent: Chest Pain, Chest Pain at Rest, Chest Pain with Activity, Edema - Respiratory Respiratory: As Per HPI, Cough, Dyspnea, Dyspnea on Exertion. absent: Wheezing - Gastrointestinal Gastrointestinal: As Per HPI. absent: Abdominal Pain, Constipation, Diarrhea, Nausea, Vomiting - Genitourinary Genitourinary: As Per HPI. absent: Dysuria Additional comments: patient still makes urine. Getting second HD today 11/10 - Integumentary Integumentary: As Per HPI. absent: Rash - Neurological Neurological: As Per HPI. absent: Dizziness, Weakness Past Patient History - Past Medical History & Family History Past Medical History?: Yes - Past Social History Smoking Status: Heavy Smoker > 10 Cigarettes Daily Chewing Tobacco Use: No Cigar Use: No - CARDIAC Hx Hypertension: Yes - PULMONARY Hx Respiratory Disorders: No - NEUROLOGICAL Hx Neurological Disorder: No - HEENT Hx HEENT Problems: Yes Other/Comment: eyeglasses for reading - RENAL Hx Chronic Kidney Disease: No - ENDOCRINE/METABOLIC Hx Endocrine Disorders: No - HEMATOLOGICAL/ONCOLOGICAL Hx Anemia: Yes - INTEGUMENTARY Hx Dermatological Problems: No - MUSCULOSKELETAL/RHEUMATOLOGICAL Hx Musculoskeletal Disorders: No Hx Falls: Yes - GASTROINTESTINAL Hx Gastrointestinal Disorders: No - GENITOURINARY/GYNECOLOGICAL Hx Genitourinary Disorders: No - PSYCHIATRIC Hx Substance Use: No - SURGICAL HISTORY Hx Surgeries: No - ANESTHESIA Hx Anesthesia: No Hx Anesthesia Reactions: No Hx Malignant Hyperthermia: No Has any member of the family had a problem w/ anesthesia?: No Meds Allergies/Adverse Reactions: Allergies Allergy/AdvReac Type Severity Reaction Status Date / Time No Known Allergies Allergy Verified 11/08/16 00:53 - Medications Medications: Current Medications Amlodipine Besylate (Norvasc) 10 mg PO DAILY [facility] Last Admin: 11/10/16 09:06 Dose: Not Given Aspirin (Ecotrin) 81 mg PO DAILY [facility] Last Admin: 11/10/16 09:06 Dose: 81 mg Famotidine (Pepcid) 20 mg PO DAILY [facility] Heparin Sodium (Porcine) (Heparin) 5,000 units SC Q8 [facility] Hydralazine HCl (Apresoline) 50 mg PO Q8 [facility] Piperacillin Sod/Tazobactam Sod (Zosyn 2.25 Gm Iv Premix) 2.25 gm in 50 mls @ 100 mls/hr IVPB Q8 [facility] Labetalol HCl (Trandate) 100 mg PO TID [facility] Last Admin: 11/10/16 09:07 Dose: Not Given Ondansetron HCl (Zofran Inj) 4 mg IVP Q8 PRN PRN Reason: Nausea/Vomiting Last Admin: 11/09/16 12:16 Dose: 4 mg Pneumococcal Polyvalent Vaccine (Pneumovax 23 Vaccine) 0.5 ml IM .ONCE ONE Stop: 11/10/16 10:01 Last Admin: 11/10/16 09:09 Dose: Not Given Physical Exam - Constitutional Appears: Well, Non-toxic - Head Exam Head Exam: ATRAUMATIC, NORMAL INSPECTION, NORMOCEPHALIC - Eye Exam Eye Exam: EOMI, Normal appearance, PERRL. absent: Conjunctival injection, Scleral icterus Pupil Exam: NORMAL ACCOMODATION - ENT Exam ENT Exam: Mucous Membranes Moist - Neck Exam Neck exam: Positive for: Full Rom, Normal Inspection - Respiratory Exam Respiratory Exam: Rales, NORMAL BREATHING PATTERN. absent: Accessory Muscle Use , Rhonchi, Wheezes, Respiratory Distress - Cardiovascular Exam Cardiovascular Exam: REGULAR RHYTHM, RRR, +S1, +S2 - GI/Abdominal Exam GI & Abdominal Exam: Normal Bowel Sounds, Soft. absent: Tenderness - Extremities Exam Extremities exam: Positive for: normal capillary refill, normal inspection, pedal pulses present. Negative for: pedal edema - Neurological Exam Neurological exam: Alert, Oriented x3 - Psychiatric Exam Psychiatric exam: Normal Affect, Normal Mood - Skin Skin Exam: Dry, Intact, Normal Color, Warm Results - Vital Signs Recent Vital Signs: Last Vital Signs Temp 97.9 F 11/10/16 08:00 Pulse 85 11/10/16 09:11 Resp 17 11/10/16 09:11 BP 200/113 H 11/10/16 09:11 Pulse Ox 96 11/10/16 09:11 - Labs Result Diagrams: 11/14/16 06:45 11/14/16 06:45 Labs: Laboratory Results - last 24 hr 11/08/16 11/08/16 11/08/16 04:40 09:45 14:00 WBC RBC Hgb Hct MCV MCH MCHC RDW Plt Count MPV Neut % (Auto) Lymph % (Auto) [place] % (Auto) Eos % (Auto) Baso % (Auto) Neut # Lymph # [place] # Eos # Baso # APTT Sodium Potassium Chloride Carbon Dioxide Anion Gap BUN Creatinine Est GFR ( Amer) Est GFR (Non-Af Amer) Random Glucose Hemoglobin A1c 5.7 Calcium Phosphorus Magnesium Total Bilirubin AST ALT Alkaline Phosphatase Total Protein Albumin Globulin Albumin/Globulin Ratio Urine Collection Time Urine Total Volume Ur Protein 24 Hr Calc Ur L.pneumophila Ag Negative Blood Type A POSITIVE Blood Type Confirm A POSITIVE Antibody Screen Negative 11/09/16 11/09/16 11/09/16 10:38 15:24 15:24 WBC RBC Hgb Hct MCV MCH MCHC RDW Plt Count MPV Neut % (Auto) Lymph % (Auto) [place] % (Auto) Eos % (Auto) Baso % (Auto) Neut # Lymph # [place] # Eos # Baso # APTT 46 H D 23 D Sodium 129 L Potassium 3.5 L Chloride 93 L Carbon Dioxide 24 Anion Gap 16 BUN 38 H Creatinine 5.2 H Est GFR ( Amer) 11 Est GFR (Non-Af Amer) 9 Random Glucose 162 H Hemoglobin A1c Calcium 8.3 L Phosphorus 4.8 H Magnesium 2.0 Total Bilirubin 0.6 AST 38 H D ALT 37 Alkaline Phosphatase 94 Total Protein 5.7 L Albumin 3.0 L Globulin 2.7 Albumin/Globulin Ratio 1.1 Urine Collection Time Urine Total Volume Ur Protein 24 Hr Calc Ur L.pneumophila Ag Blood Type Blood Type Confirm Antibody Screen 11/09/16 11/09/16 11/10/16 15:24 22:12 06:33 WBC 14.6 H 14.5 H RBC 3.40 L 3.49 L Hgb 7.6 L 7.9 L Hct 24.3 L 25.5 L MCV 71.3 L 73.0 L MCH 22.2 L 22.6 L MCHC 31.2 L 31.0 L RDW 21.5 H 21.9 H Plt Count 218 253 MPV 7.7 8.0 Neut % (Auto) 83.0 H 81.2 H Lymph % (Auto) 11.[address] [place] % (Auto) 4.0 4.4 Eos % (Auto) 1.5 3.4 Baso % (Auto) 0.2 0.5 Neut # 12.1 H 11.7 H Lymph # 1.[address] # 0.6 0.6 Eos # 0.2 0.5 Baso # 0.0 0.1 APTT 42 H D Sodium Potassium Chloride Carbon Dioxide Anion Gap BUN Creatinine Est GFR ( Amer) Est GFR (Non-Af Amer) Random Glucose Hemoglobin A1c Calcium Phosphorus Magnesium Total Bilirubin AST ALT Alkaline Phosphatase Total Protein Albumin Globulin Albumin/Globulin Ratio Urine Collection Time Urine Total Volume Ur Protein 24 Hr Calc Ur L.pneumophila Ag Blood Type Blood Type Confirm Antibody Screen 11/10/16 11/10/16 11/10/16 06:33 06:48 08:34 WBC RBC Hgb Hct MCV MCH MCHC RDW Plt Count MPV Neut % (Auto) Lymph % (Auto) [place] % (Auto) Eos % (Auto) Baso % (Auto) Neut # Lymph # [place] # Eos # Baso # APTT 39 H Sodium 129 L Potassium 3.2 L Chloride 93 L Carbon Dioxide 22 Anion Gap 17 BUN 49 H Creatinine 6.4 H Est GFR ( Amer) 9 Est GFR (Non-Af Amer) 7 Random Glucose 101 Hemoglobin A1c Calcium 8.6 Phosphorus 6.2 H Magnesium 2.2 Total Bilirubin 0.6 AST 20 ALT 37 Alkaline Phosphatase 91 Total Protein 5.8 L Albumin 3.1 L Globulin 2.8 Albumin/Globulin Ratio 1.1 Urine Collection Time 24 Urine Total Volume 1275 Ur Protein 24 Hr Calc 1504.5 H Ur L.pneumophila Ag Blood Type Blood Type Confirm Antibody Screen Assessment & Plan - Assessment and Plan (Free Text) Assessment: 36 F PMHx HTN admitted with acute heart failure, acute renal insufficiency, acute pulmonary edema, and severe hypokalemia Plan: NSTEMI -Monitor NICK and EKG x 3 -Heparin gtt -ASA and NTG -beta sidney -patient has hx of CKD Acute CHF -f/u Echo -BNP 05116 Uncontrolled HTN -likely secondary to CKD Case discussed with Dr Wei Crawley PGY2
[2016-11-10] MEDS ORDERED: Pneumococcal 23-Valent Vaccine IM ONE (10:00)
--- NOTE | 2016-11-10 10:34 | CP.PCM.PN ---
Subjective - Date & Time of Evaluation Date of Evaluation: 11/10/16 Time of Evaluation: 10:31 - Subjective Subjective: Starting second dialysis now Feels much better Renal US shows densely echogenic kidneys c/w CKD HTN better controlled- still moderately controlled Immunolgics testing pending Remains anemic Will consider outpt dialysis as pt likely with CKD Objective - Vital Signs/Intake and Output Vital Signs (last 24 hours): Temp Pulse Resp BP Pulse Ox 97.9 F 74 22 156/99 H 98 11/10/16 08:00 11/10/16 10:03 11/10/16 10:03 11/10/16 10:03 11/10/16 10:03 Intake and Output: 11/10/16 11/10/16 06:59 18:59 Intake Total 728.8 314.9 Output Total 150 0 Balance 578.8 314.9 - Medications Medications: Current Medications Amlodipine Besylate (Norvasc) 10 mg PO DAILY [facility] Last Admin: 11/10/16 09:06 Dose: Not Given Aspirin (Ecotrin) 81 mg PO DAILY [facility] Last Admin: 11/10/16 09:06 Dose: 81 mg Famotidine (Pepcid) 20 mg PO DAILY [facility] Last Admin: 11/10/16 09:42 Dose: Not Given Heparin Sodium (Porcine) (Heparin) 5,000 units SC Q8 [facility] Hydralazine HCl (Apresoline) 50 mg PO Q8 [facility] Piperacillin Sod/Tazobactam Sod (Zosyn 2.25 Gm Iv Premix) 2.25 gm in 50 mls @ 100 mls/hr IVPB Q8 [facility] Labetalol HCl (Trandate) 100 mg PO TID [facility] Last Admin: 11/10/16 09:07 Dose: Not Given Ondansetron HCl (Zofran Inj) 4 mg IVP Q8 PRN PRN Reason: Nausea/Vomiting Last Admin: 11/09/16 12:16 Dose: 4 mg - Labs Labs: 11/10/16 06:33 11/10/16 06:33 PT 11.2 SECONDS (9.7-12.2) 11/08/16 01:23 INR 1.0 11/08/16 01:23 APTT 39 SECONDS (21-34) H 11/10/16 06:48 - Constitutional Appears: No Acute Distress, Chronically Ill - Head Exam Head Exam: ATRAUMATIC, NORMAL INSPECTION - Eye Exam Eye Exam: EOMI, Normal appearance - Neck Exam Neck Exam: Normal Inspection. absent: Tenderness - Respiratory Exam Respiratory Exam: Clear to Ausculation Bilateral, NORMAL BREATHING PATTERN - Cardiovascular Exam Cardiovascular Exam: REGULAR RHYTHM, +S1 - GI/Abdominal Exam GI & Abdominal Exam: Soft. absent: Tenderness - Extremities Exam Extremities Exam: Normal Inspection. absent: Tenderness - Neurological Exam Neurological Exam: Alert, CN II-XII Intact - Skin Skin Exam: Dry, Warm Assessment and Plan (1) Proteinuria Status: Acute (2) NSTEMI (non-ST elevated myocardial infarction) Status: Acute (3) AMPARO (acute kidney injury) Status: Acute (4) CHF (congestive heart failure) Status: Acute (5) Hypokalemia Status: Acute (6) Hypertensive emergency Status: Acute (7) CKD (chronic kidney disease) stage 5, GFR less than 15 ml/min Status: Acute (8) CKD stage 5 secondary to hypertension Status: Acute - Assessment and Plan (Free Text) Plan: Dialysis MWF Consider AV access Check immunolgics Check renin/chetan as K remains low Start ESAs- monitor BP
--- NOTE | 2016-11-10 12:53 | CP.CCUPN ---
<VickieAndrew - Last Filed: 11/10/16 13:22> CCU Subjective - Physician Review Events Since Last Encounter (Free Text): 11/10/16 13:11 Pt beginning second dialysis currently States feels much improved Remains anemic @ 7.9 per nephology may need outpt dialysis per cardio will trend troponins, may need cath in future Critical Care Time Spent (in minutes): 35 CCU Objective - Vital Signs / Intake & Output Vital Signs (Last 4 hours): Vital Signs Temp Pulse Pulse Resp BP BP Pulse Ox 11/10/16 12:10 10 L 24 100 11/10/16 12:00 98.2 F 82 21 98 11/10/16 11:50 98 F 79 79 20 144/105 H 144/105 H 100 11/10/16 11:48 80 20 160/100 H 100 11/10/16 11:33 81 23 144/105 H 100 11/10/16 11:20 98.2 F 79 79 20 157/99 H 151/99 H 100 11/10/16 11:18 78 22 157/99 H 99 11/10/16 11:03 98.2 F 80 22 151/98 H 100 11/10/16 11:00 81 22 99 11/10/16 10:48 98.2 F 77 79 22 145/95 H 145/95 H 96 11/10/16 10:33 76 22 145/100 H 97 11/10/16 10:30 98.2 F 76 76 22 158/108 H 154/108 H 100 11/10/16 10:18 76 22 158/101 H 97 11/10/16 10:03 74 22 156/99 H 98 11/10/16 10:00 75 22 98 11/10/16 09:48 75 23 151/98 H 99 11/10/16 09:46 76 29 H 154/101 H 96 11/10/16 09:11 85 17 200/113 H 96 11/10/16 09:00 90 21 91 L Intake and Output (Last 8hrs): Intake & Output 11/09/16 11/10/16 11/10/16 22:59 06:59 14:59 Intake Total 1069.2 319.2 364.9 Output Total 200 150 0 Balance 869.2 169.2 364.9 Weight 70 lb Intake: IV 0 Intake, IV Amount 369.2 119.2 14.9 Left Hand 50 Left Proximal Port Hand 200 Right Antecubital 119.2 119.2 14.9 Oral 700 200 300 Blood Product 0 Red Blood Cells Cpd As1 0 Lr Unit [id number] Other 50 Red Blood Cells Cpd As1 50 Lr Unit [id number] Output: Urine 150 0 Urine, Voided 150 0 Stool 200 Other: # Bowel Movements 0 - Physical Exam Head: Positive for: Atraumatic, Normocephalic Extroacular Muscles: Positive for: EOMI Neck: Positive for: Normal Range of Motion Respiratory/Chest: Positive for: Clear to Auscultation, Good Air Exchange. Negative for: Respiratory Distress, Accessory Muscle Use Cardiovascular: Positive for: Regular Rate and Rhythm. Negative for: Murmurs Lower Extremity: Positive for: Normal Inspection. Negative for: Edema - Medications Active Medications: Active Medications Generic Name Dose Route Start Last Admin Trade Name Freq PRN Reason Stop Dose Admin Amlodipine Besylate 10 mg 11/09/16 10:00 11/10/16 09:06 Norvasc PO Not Given DAILY [facility] Aspirin 81 mg 11/08/16 10:00 11/10/16 09:06 Ecotrin PO 81 mg DAILY [facility] Administration Epoetin Glenn 10,000 unit 11/10/16 10:45 Procrit IV MWF [facility] Famotidine 20 mg 11/10/16 10:00 11/10/16 09:42 Pepcid PO Not Given DAILY [facility] Heparin Sodium (Porcine) 5,000 units 11/10/16 14:00 Heparin SC Q8 [facility] Hydralazine HCl 50 mg 11/10/16 14:00 Apresoline PO Q8 [facility] Piperacillin Sod/Tazobactam Sod 2.25 gm in 50 mls @ 100 mls/hr 11/10/16 14:00 Zosyn 2.25 Gm Iv Premix IVPB Q8 [facility] Labetalol HCl 100 mg 11/09/16 10:00 11/10/16 09:07 Trandate PO Not Given TID [facility] Ondansetron HCl 4 mg 11/08/16 11:13 11/09/16 12:16 Zofran Inj IVP 4 mg Q8 PRN Administration Nausea/Vomiting - Patient Studies Lab Studies: Microbiology Studies 11/08/16 08:40 Urine Culture - Final Urine,Clean Catch 10-50,000 CFU/ML. MULTIPLE SPECIES. PROBABLE CONTAMINATION. 11/08/16 05:34 MRSA Culture (Admit) - Final Nose MRSA NOT DETECTED Lab Studies 11/10/16 11/10/16 11/10/16 Range/Units 11:21 11:21 08:34 WBC (4.8-10.8) K/uL RBC (3.80-5.20) Mil/uL Hgb (11.0-16.0) g/dL Hct (34.0-47.0) % MCV (81.0-99.0) fL MCH (27.0-31.0) pg MCHC (33.0-37.0) g/dL RDW (11.5-14.5) % Plt Count (130-400) K/uL MPV (7.2-11.7) fL Neut % (Auto) (50.0-75.0) % Lymph % (Auto) (20.0-40.0) % Braxton % (Auto) (0.0-10.0) % Eos % (Auto) (0.0-4.0) % Baso % (Auto) (0.0-2.0) % Neut # (1.8-7.0) K/uL Lymph # (1.0-4.3) K/uL Braxton # (0.0-0.8) K/uL Eos # (0.0-0.7) K/uL Baso # (0.0-0.2) K/uL APTT (21-34) SECONDS Sodium (132-148) mmol/L Potassium (3.6-5.2) mmol/L Chloride (98-107) mmol/L Carbon Dioxide (22-30) mmol/L Anion Gap (10-20) BUN (7-17) mg/dL Creatinine (0.7-1.2) MG/DL Est GFR ( Amer) Est GFR (Non-Af Amer) Random Glucose (65-105) mg/dL Hemoglobin A1c (4.2-6.5) % Calcium (8.6-10.4) mg/dl Phosphorus (2.5-4.5) mg/dL Magnesium (1.6-2.3) mg/dL % Saturation 11 L (20-55) Ferritin 13.9 ng/mL Total Bilirubin (0.2-1.3) mg/dL AST (14-36) U/L ALT (9-52) U/L Alkaline Phosphatase (38-126) U/L Total Protein (6.3-8.3) g/dL Albumin (3.5-5.0) g/dL Globulin (2.2-3.9) gm/dL Albumin/Globulin Ratio (1.0-2.1) Urine Collection Time 24 HRS Urine Total Volume 1275 mL Ur Protein 24 Hr Calc 1504.5 H (42-225) mg/24hr LARRY 6 Profile (NEGATIVE) Blood Type Blood Type Confirm Antibody Screen 11/10/16 11/10/16 11/10/16 Range/Units 06:48 06:33 06:33 WBC 14.5 H (4.8-10.8) K/uL RBC 3.49 L (3.80-5.20) Mil/uL Hgb 7.9 L (11.0-16.0) g/dL Hct 25.5 L (34.0-47.0) % MCV 73.0 L (81.0-99.0) fL MCH 22.6 L (27.0-31.0) pg MCHC 31.0 L (33.0-37.0) g/dL RDW 21.9 H (11.5-14.5) % Plt Count 253 (130-400) K/uL MPV 8.0 (7.2-11.7) fL Neut % (Auto) 81.2 H (50.0-75.0) % Lymph % (Auto) 10.5 L (20.0-40.0) % Braxton % (Auto) 4.4 (0.0-10.0) % Eos % (Auto) 3.4 (0.0-4.0) % Baso % (Auto) 0.5 (0.0-2.0) % Neut # 11.7 H (1.8-7.0) K/uL Lymph # 1.5 (1.0-4.3) K/uL Braxton # 0.6 (0.0-0.8) K/uL Eos # 0.5 (0.0-0.7) K/uL Baso # 0.1 (0.0-0.2) K/uL APTT 39 H (21-34) SECONDS Sodium 129 L (132-148) mmol/L Potassium 3.2 L (3.6-5.2) mmol/L Chloride 93 L (98-107) mmol/L Carbon Dioxide 22 (22-30) mmol/L Anion Gap 17 (10-20) BUN 49 H (7-17) mg/dL Creatinine 6.4 H (0.7-1.2) MG/DL Est GFR ( Amer) 9 Est GFR (Non-Af Amer) 7 Random Glucose 101 (65-105) mg/dL Hemoglobin A1c (4.2-6.5) % Calcium 8.6 (8.6-10.4) mg/dl Phosphorus 6.2 H (2.5-4.5) mg/dL Magnesium 2.2 (1.6-2.3) mg/dL % Saturation (20-55) Ferritin ng/mL Total Bilirubin 0.6 (0.2-1.3) mg/dL AST 20 (14-36) U/L ALT 37 (9-52) U/L Alkaline Phosphatase 91 (38-126) U/L Total Protein 5.8 L (6.3-8.3) g/dL Albumin 3.1 L (3.5-5.0) g/dL Globulin 2.8 (2.2-3.9) gm/dL Albumin/Globulin Ratio 1.1 (1.0-2.1) Urine Collection Time HRS Urine Total Volume mL Ur Protein 24 Hr Calc (42-225) mg/24hr LARRY 6 Profile (NEGATIVE) Blood Type Blood Type Confirm Antibody Screen 11/09/16 11/09/16 11/09/16 Range/Units 22:12 15:24 15:24 WBC 14.6 H (4.8-10.8) K/uL RBC 3.40 L (3.80-5.20) Mil/uL Hgb 7.6 L (11.0-16.0) g/dL Hct 24.3 L (34.0-47.0) % MCV 71.3 L (81.0-99.0) fL MCH 22.2 L (27.0-31.0) pg MCHC 31.2 L (33.0-37.0) g/dL RDW 21.5 H (11.5-14.5) % Plt Count 218 (130-400) K/uL MPV 7.7 (7.2-11.7) fL Neut % (Auto) 83.0 H (50.0-75.0) % Lymph % (Auto) 11.3 L (20.0-40.0) % Braxton % (Auto) 4.0 (0.0-10.0) % Eos % (Auto) 1.5 (0.0-4.0) % Baso % (Auto) 0.2 (0.0-2.0) % Neut # 12.1 H (1.8-7.0) K/uL Lymph # 1.7 (1.0-4.3) K/uL Braxton # 0.6 (0.0-0.8) K/uL Eos # 0.2 (0.0-0.7) K/uL Baso # 0.0 (0.0-0.2) K/uL APTT 42 H D (21-34) SECONDS Sodium 129 L (132-148) mmol/L Potassium 3.5 L (3.6-5.2) mmol/L Chloride 93 L (98-107) mmol/L Carbon Dioxide 24 (22-30) mmol/L Anion Gap 16 (10-20) BUN 38 H (7-17) mg/dL Creatinine 5.2 H (0.7-1.2) MG/DL Est GFR ( Amer) 11 Est GFR (Non-Af Amer) 9 Random Glucose 162 H (65-105) mg/dL Hemoglobin A1c (4.2-6.5) % Calcium 8.3 L (8.6-10.4) mg/dl Phosphorus 4.8 H (2.5-4.5) mg/dL Magnesium 2.0 (1.6-2.3) mg/dL % Saturation (20-55) Ferritin ng/mL Total Bilirubin 0.6 (0.2-1.3) mg/dL AST 38 H D (14-36) U/L ALT 37 (9-52) U/L Alkaline Phosphatase 94 (38-126) U/L Total Protein 5.7 L (6.3-8.3) g/dL Albumin 3.0 L (3.5-5.0) g/dL Globulin 2.7 (2.2-3.9) gm/dL Albumin/Globulin Ratio 1.1 (1.0-2.1) Urine Collection Time HRS Urine Total Volume mL Ur Protein 24 Hr Calc (42-225) mg/24hr LARRY 6 Profile (NEGATIVE) Blood Type Blood Type Confirm Antibody Screen 11/09/16 11/08/16 11/08/16 Range/Units 15:24 14:00 12:04 WBC (4.8-10.8) K/uL RBC (3.80-5.20) Mil/uL Hgb (11.0-16.0) g/dL Hct (34.0-47.0) % MCV (81.0-99.0) fL MCH (27.0-31.0) pg MCHC (33.0-37.0) g/dL RDW (11.5-14.5) % Plt Count (130-400) K/uL MPV (7.2-11.7) fL Neut % (Auto) (50.0-75.0) % Lymph % (Auto) (20.0-40.0) % Braxton % (Auto) (0.0-10.0) % Eos % (Auto) (0.0-4.0) % Baso % (Auto) (0.0-2.0) % Neut # (1.8-7.0) K/uL Lymph # (1.0-4.3) K/uL Braxton # (0.0-0.8) K/uL Eos # (0.0-0.7) K/uL Baso # (0.0-0.2) K/uL APTT 23 D (21-34) SECONDS Sodium (132-148) mmol/L Potassium (3.6-5.2) mmol/L Chloride (98-107) mmol/L Carbon Dioxide (22-30) mmol/L Anion Gap (10-20) BUN (7-17) mg/dL Creatinine (0.7-1.2) MG/DL Est GFR ( Amer) Est GFR (Non-Af Amer) Random Glucose (65-105) mg/dL Hemoglobin A1c (4.2-6.5) % Calcium (8.6-10.4) mg/dl Phosphorus (2.5-4.5) mg/dL Magnesium (1.6-2.3) mg/dL % Saturation (20-55) Ferritin ng/mL Total Bilirubin (0.2-1.3) mg/dL AST (14-36) U/L ALT (9-52) U/L Alkaline Phosphatase (38-126) U/L Total Protein (6.3-8.3) g/dL Albumin (3.5-5.0) g/dL Globulin (2.2-3.9) gm/dL Albumin/Globulin Ratio (1.0-2.1) Urine Collection Time HRS Urine Total Volume mL Ur Protein 24 Hr Calc (42-225) mg/24hr LARRY 6 Profile Negative (NEGATIVE) Blood Type A POSITIVE Blood Type Confirm A POSITIVE Antibody Screen Negative 11/08/16 Range/Units 09:45 WBC (4.8-10.8) K/uL RBC (3.80-5.20) Mil/uL Hgb (11.0-16.0) g/dL Hct (34.0-47.0) % MCV (81.0-99.0) fL MCH (27.0-31.0) pg MCHC (33.0-37.0) g/dL RDW (11.5-14.5) % Plt Count (130-400) K/uL MPV (7.2-11.7) fL Neut % (Auto) (50.0-75.0) % Lymph % (Auto) (20.0-40.0) % Braxton % (Auto) (0.0-10.0) % Eos % (Auto) (0.0-4.0) % Baso % (Auto) (0.0-2.0) % Neut # (1.8-7.0) K/uL Lymph # (1.0-4.3) K/uL Braxton # (0.0-0.8) K/uL Eos # (0.0-0.7) K/uL Baso # (0.0-0.2) K/uL APTT (21-34) SECONDS Sodium (132-148) mmol/L Potassium (3.6-5.2) mmol/L Chloride (98-107) mmol/L Carbon Dioxide (22-30) mmol/L Anion Gap (10-20) BUN (7-17) mg/dL Creatinine (0.7-1.2) MG/DL Est GFR ( Amer) Est GFR (Non-Af Amer) Random Glucose (65-105) mg/dL Hemoglobin A1c 5.7 (4.2-6.5) % Calcium (8.6-10.4) mg/dl Phosphorus (2.5-4.5) mg/dL Magnesium (1.6-2.3) mg/dL % Saturation (20-55) Ferritin ng/mL Total Bilirubin (0.2-1.3) mg/dL AST (14-36) U/L ALT (9-52) U/L Alkaline Phosphatase (38-126) U/L Total Protein (6.3-8.3) g/dL Albumin (3.5-5.0) g/dL Globulin (2.2-3.9) gm/dL Albumin/Globulin Ratio (1.0-2.1) Urine Collection Time HRS Urine Total Volume mL Ur Protein 24 Hr Calc (42-225) mg/24hr LARRY 6 Profile (NEGATIVE) Blood Type Blood Type Confirm Antibody Screen Laboratory Results - last 24 hr 11/08/16 11/08/16 11/08/16 09:45 12:04 14:00 WBC RBC Hgb Hct MCV MCH MCHC RDW Plt Count MPV Neut % (Auto) Lymph % (Auto) Braxton % (Auto) Eos % (Auto) Baso % (Auto) Neut # Lymph # Braxton # Eos # Baso # APTT Sodium Potassium Chloride Carbon Dioxide Anion Gap BUN Creatinine Est GFR ( Amer) Est GFR (Non-Af Amer) Random Glucose Hemoglobin A1c 5.7 Calcium Phosphorus Magnesium % Saturation Ferritin Total Bilirubin AST ALT Alkaline Phosphatase Total Protein Albumin Globulin Albumin/Globulin Ratio Urine Collection Time Urine Total Volume Ur Protein 24 Hr Calc LARRY 6 Profile Negative Blood Type A POSITIVE Blood Type Confirm A POSITIVE Antibody Screen Negative 11/09/16 11/09/16 11/09/16 15:24 15:24 15:24 WBC 14.6 H RBC 3.40 L Hgb 7.6 L Hct 24.3 L MCV 71.3 L MCH 22.2 L MCHC 31.2 L RDW 21.5 H Plt Count 218 MPV 7.7 Neut % (Auto) 83.0 H Lymph % (Auto) 11.3 L Braxton % (Auto) 4.0 Eos % (Auto) 1.5 Baso % (Auto) 0.2 Neut # 12.1 H Lymph # 1.7 Braxton # 0.6 Eos # 0.2 Baso # 0.0 APTT 23 D Sodium 129 L Potassium 3.5 L Chloride 93 L Carbon Dioxide 24 Anion Gap 16 BUN 38 H Creatinine 5.2 H Est GFR ( Amer) 11 Est GFR (Non-Af Amer) 9 Random Glucose 162 H Hemoglobin A1c Calcium 8.3 L Phosphorus 4.8 H Magnesium 2.0 % Saturation Ferritin Total Bilirubin 0.6 AST 38 H D ALT 37 Alkaline Phosphatase 94 Total Protein 5.7 L Albumin 3.0 L Globulin 2.7 Albumin/Globulin Ratio 1.1 Urine Collection Time Urine Total Volume Ur Protein 24 Hr Calc LARRY 6 Profile Blood Type Blood Type Confirm Antibody Screen 11/09/16 11/10/16 11/10/16 22:12 06:33 06:33 WBC 14.5 H RBC 3.49 L Hgb 7.9 L Hct 25.5 L MCV 73.0 L MCH 22.6 L MCHC 31.0 L RDW 21.9 H Plt Count 253 MPV 8.0 Neut % (Auto) 81.2 H Lymph % (Auto) 10.5 L Braxton % (Auto) 4.4 Eos % (Auto) 3.4 Baso % (Auto) 0.5 Neut # 11.7 H Lymph # 1.5 Braxton # 0.6 Eos # 0.5 Baso # 0.1 APTT 42 H D Sodium 129 L Potassium 3.2 L Chloride 93 L Carbon Dioxide 22 Anion Gap 17 BUN 49 H Creatinine 6.4 H Est GFR ( Amer) 9 Est GFR (Non-Af Amer) 7 Random Glucose 101 Hemoglobin A1c Calcium 8.6 Phosphorus 6.2 H Magnesium 2.2 % Saturation Ferritin Total Bilirubin 0.6 AST 20 ALT 37 Alkaline Phosphatase 91 Total Protein 5.8 L Albumin 3.1 L Globulin 2.8 Albumin/Globulin Ratio 1.1 Urine Collection Time Urine Total Volume Ur Protein 24 Hr Calc LARRY 6 Profile Blood Type Blood Type Confirm Antibody Screen 11/10/16 11/10/16 11/10/16 06:48 08:34 11:21 WBC RBC Hgb Hct MCV MCH MCHC RDW Plt Count MPV Neut % (Auto) Lymph % (Auto) Braxton % (Auto) Eos % (Auto) Baso % (Auto) Neut # Lymph # Braxton # Eos # Baso # APTT 39 H Sodium Potassium Chloride Carbon Dioxide Anion Gap BUN Creatinine Est GFR ( Amer) Est GFR (Non-Af Amer) Random Glucose Hemoglobin A1c Calcium Phosphorus Magnesium % Saturation 11 L Ferritin Total Bilirubin AST ALT Alkaline Phosphatase Total Protein Albumin Globulin Albumin/Globulin Ratio Urine Collection Time 24 Urine Total Volume 1275 Ur Protein 24 Hr Calc 1504.5 H LARRY 6 Profile Blood Type Blood Type Confirm Antibody Screen 11/10/16 11:21 WBC RBC Hgb Hct MCV MCH MCHC RDW Plt Count MPV Neut % (Auto) Lymph % (Auto) Braxton % (Auto) Eos % (Auto) Baso % (Auto) Neut # Lymph # Braxton # Eos # Baso # APTT Sodium Potassium Chloride Carbon Dioxide Anion Gap BUN Creatinine Est GFR ( Amer) Est GFR (Non-Af Amer) Random Glucose Hemoglobin A1c Calcium Phosphorus Magnesium % Saturation Ferritin 13.9 Total Bilirubin AST ALT Alkaline Phosphatase Total Protein Albumin Globulin Albumin/Globulin Ratio Urine Collection Time Urine Total Volume Ur Protein 24 Hr Calc LARRY 6 Profile Blood Type Blood Type Confirm Antibody Screen Critical Care Progress Note - Nutrition Nutrition: Nutrition Category Date Time Status Heart Healthy Diet [DIET] Diets 11/09/16 Dinner Active Assessment/Plan - Assessment and Plan (Free Text) Assessment: 36F w/ history of noncompliance, htn, admitted with acute heart failure, acute renal failure, acute pulmonary edema, severe hypokalemia Plan: on 2nd hemodialysis d/c Heparin drip start HSQ Cardiology consult Dr Childers K+ replaced hydralazine added out of bed to chair will d/w Dr Duglas Johnston, PGY3 - Date & Time Date: 11/10/16 Time: 13:22 <Liborio Ardon - Last Filed: 11/17/16 19:34> CCU Objective - Vital Signs / Intake & Output Vital Signs (Last 4 hours): Vital Signs Temp Pulse Resp BP Pulse Ox 11/17/16 16:59 98.2 F 85 20 129/76 97 11/17/16 16:22 97.9 F 86 22 117/71 93 L 11/17/16 16:07 81 24 122/72 98 11/17/16 15:52 82 25 H 129/76 96 11/17/16 15:38 80 27 H 145/73 94 L Intake and Output (Last 8hrs): Intake & Output 11/17/16 11/17/16 11/17/16 06:59 14:59 22:59 Intake Total 500 Balance 500 Intake: Oral 500 Other: # Voids Urine, Voided 4 - Medications Active Medications: Active Medications Generic Name Dose Route Start Last Admin Trade Name Freq PRN Reason Stop Dose Admin Amlodipine Besylate 10 mg 11/09/16 10:00 11/17/16 18:21 Norvasc PO 10 mg DAILY [facility] Administration Aspirin 81 mg 11/08/16 10:00 11/17/16 18:27 Ecotrin PO 81 mg DAILY [facility] Administration Calcium Acetate 667 mg 11/18/16 12:00 Phoslo PO TIDCC [facility] Clonidine HCl 0.1 mg 11/14/16 18:00 11/17/16 18:21 Catapres PO 0.1 mg BID [facility] Administration Epoetin Glenn 10,000 unit 11/17/16 10:30 11/17/16 10:37 Procrit IV 10,000 unit MWF [facility] Administration Escitalopram Oxalate 10 mg 11/16/16 11:30 11/17/16 18:19 Lexapro PO 10 mg DAILY [facility] Administration Famotidine 20 mg 11/10/16 10:00 11/17/16 18:20 Pepcid PO 20 mg DAILY [facility] Administration Ferric Sodium Gluconate Complex 125 mg 11/14/16 13:15 11/17/16 10:36 Ferrlecit IVPB 11/22/16 13:16 125 mg DAILY [facility] Administration Heparin Sodium (Porcine) 5,000 units 11/10/16 14:00 11/13/16 06:15 Heparin SC 5,000 units Q8 [facility] Administration Ibuprofen 600 mg 11/17/16 15:28 11/17/16 18:26 Motrin Tab PO 600 mg TID PRN Administration Pain, Mild (1-3) Labetalol HCl 300 mg 11/13/16 14:00 11/17/16 18:22 Normodyne PO 300 mg TID [facility] Administration Lorazepam 0.5 mg 11/12/16 11:35 11/17/16 00:26 Ativan PO 0.5 mg Q6H PRN Administration Anxiety Minoxidil 5 mg 11/14/16 18:00 11/17/16 18:20 Minoxidil PO 5 mg BID [facility] Administration Nicotine 1 patch 11/12/16 11:00 11/17/16 18:23 Nicoderm Cq TD 1 patch DAILY [facility] Administration Ondansetron HCl 4 mg 11/08/16 11:13 11/13/16 16:00 Zofran Inj IVP 4 mg Q8 PRN Administration Nausea/Vomiting Oxycodone/Acetaminophen 1 tab 11/17/16 15:26 Percocet 5/325 Mg Tab PO 11/18/16 06:00 Q6H PRN Pain, moderate (4-7) - Patient Studies Lab Studies: Lab Studies 11/17/16 11/17/16 11/17/16 Range/Units 08:43 08:43 07:23 WBC 13.9 H (4.8-10.8) K/uL RBC 3.96 (3.80-5.20) Mil/uL Hgb 9.2 L (11.0-16.0) g/dL Hct 30.1 L (34.0-47.0) % MCV 76.1 L (81.0-99.0) fL MCH 23.3 L (27.0-31.0) pg MCHC 30.6 L (33.0-37.0) g/dL RDW 22.7 H (11.5-14.5) % Plt Count 374 (130-400) K/uL MPV 7.5 (7.2-11.7) fL Neut % (Auto) 77.7 H (50.0-75.0) % Lymph % (Auto) 14.3 L (20.0-40.0) % Braxton % (Auto) 5.1 (0.0-10.0) % Eos % (Auto) 2.3 (0.0-4.0) % Baso % (Auto) 0.6 (0.0-2.0) % Neut # 10.8 H (1.8-7.0) K/uL Lymph # 2.0 (1.0-4.3) K/uL Braxton # 0.7 (0.0-0.8) K/uL Eos # 0.3 (0.0-0.7) K/uL Baso # 0.1 (0.0-0.2) K/uL Sodium 137 (132-148) mmol/L Potassium 3.9 (3.6-5.2) mmol/L Chloride 99 (98-107) mmol/L Carbon Dioxide 24 (22-30) mmol/L Anion Gap 17 (10-20) BUN 38 H (7-17) mg/dL Creatinine 8.5 H* (0.7-1.2) MG/DL Est GFR ( Amer) 6 Est GFR (Non-Af Amer) 5 Random Glucose 81 (65-105) mg/dL Calcium 9.4 (8.6-10.4) mg/dl Phosphorus 7.0 H (2.5-4.5) mg/dL Magnesium 2.5 H (1.6-2.3) mg/dL Total Bilirubin 0.5 (0.2-1.3) mg/dL AST 22 (14-36) U/L ALT 29 (9-52) U/L Alkaline Phosphatase 59 (38-126) U/L Total Protein 6.3 (6.3-8.3) g/dL Albumin 3.5 (3.5-5.0) g/dL Globulin 2.7 (2.2-3.9) gm/dL Albumin/Globulin Ratio 1.3 (1.0-2.1) Urine HCG, Qual Negative (NEGATIVE) Laboratory Results - last 24 hr 11/17/16 11/17/16 11/17/16 07:23 08:43 08:43 WBC 13.9 H RBC 3.96 Hgb 9.2 L Hct 30.1 L MCV 76.1 L MCH 23.3 L MCHC 30.6 L RDW 22.7 H Plt Count 374 MPV 7.5 Neut % (Auto) 77.7 H Lymph % (Auto) 14.3 L Braxton % (Auto) 5.1 Eos % (Auto) 2.3 Baso % (Auto) 0.6 Neut # 10.8 H Lymph # 2.0 Braxton # 0.7 Eos # 0.3 Baso # 0.1 Sodium 137 Potassium 3.9 Chloride 99 Carbon Dioxide 24 Anion Gap 17 BUN 38 H Creatinine 8.5 H* Est GFR ( Amer) 6 Est GFR (Non-Af Amer) 5 Random Glucose 81 Calcium 9.4 Phosphorus 7.0 H Magnesium 2.5 H Total Bilirubin 0.5 AST 22 ALT 29 Alkaline Phosphatase 59 Total Protein 6.3 Albumin 3.5 Globulin 2.7 Albumin/Globulin Ratio 1.3 Urine HCG, Qual Negative Critical Care Progress Note - Nutrition Nutrition: Nutrition Category Date Time Status Renal Diet [DIET] Diets 11/17/16 Dinner Active Attending/Attestation - Attestation I have personally seen and examined this patient.: Yes I have fully participated in the care of the patient.: Yes I have reviewed all pertinent clinical information: Yes Notes (Text): 11/17/16 19:34 agree with above note during rounds in the am pt was examined and clinical decision was made and discussed with icu team
[2016-11-10] MEDS: EPOETIN ALFA 10,000 UNIT/ML ML IV SCH (13:39)
[2016-11-10] MEDS: Piperacill/Tazo 2.25gm in Dex 2.25 GM/50 ML BAG IVPB SCH ×2 (14:03→22:13)
--- NOTE | 2016-11-10 15:04 | CARD ---
APPROVED REPORT EXAM: Two-dimensional and M-mode echocardiogram with Doppler and color Doppler. Other Information Quality : Good[employer] : INDICATION Dyspnea Chest Pain Murmur Congestive Heart Failure Non STEMI RISK FACTORS Hypertension M-Mode DIMENSIONS RVDd2.73 (2.1-3.2cm)Left Atrium (MM)4.53 (2.5-4.0cm) IVSd1.68 (0.7-1.1cm)Aortic Root2.77 (2.2-3.7cm) LVDd4.88 (4.0-5.6cm)Aortic Cusp Exc.2.26 (1.5-2.0cm) PWd1.72 (0.7-1.1cm)FS (%) 28 % LVDs3.51 (2.0-3.8cm)LVEF (%)54 (>50%) Mitral Valve MV E Voncccfr377.3cm/sMV A Whdhqlpy57.3cm/sE/A ratio2.7 TDI E/Lateral E'0.0E/Medial E'0.0 Tricuspid Valve TR Peak Bjjpgkgw607on/sTR Peak Gr.[id number] LEFT VENTRICLE The left ventricle is normal size. There is moderately increased wall thickness. The left ventricular function is normal. The left ventricular ejection fraction is within the normal range. About 60% No regional wall motion abnormalities noted. Transmitral Doppler flow pattern is Grade III-reversible restrictive diastolic dysfunction. No left ventricle thrombus noted on this study. There is no ventricular septal defect visualized. There is no left ventricular aneurysm. There is no mass noted in the left ventricle. RIGHT VENTRICLE The right ventricle is normal size. There is normal right ventricular wall thickness. The right ventricular systolic function is normal. ATRIA The left atrial voulm index is moderately increased. The right atrium size is mildly dilated. The interatrial septum is intact with no evidence for an atrial septal defect. AORTIC VALVE The aortic valve is normal in structure and function. No aortic regurgitation is present. There is no aortic valvular stenosis. There is no aortic valvular vegetation. MITRAL VALVE The mitral valve is normal in structure and function. There is no evidence of mitral valve prolapse. There is no mitral valve stenosis. There is mild mitral valve regurgitation noted. TRICUSPID VALVE The tricuspid valve is normal in structure and function. There is mild tricuspid valve regurgitation noted. estimated PA systolic pressure is 48 mm Hg There is no tricuspid valve prolapse or vegetation. There is no tricuspid valve stenosis. PULMONIC VALVE The pulmonary valve is normal in structure and function. There is no pulmonic valvular regurgitation. There is no pulmonic valvular stenosis. GREAT VESSELS The aortic root is normal in size. The ascending aorta is normal in size. The pulmonary artery is normal. The IVC is normal in size and collapses <50% with inspiration. PERICARDIAL EFFUSION The pericardium appears normal. There is a left pleural effusion. <Conclusion> The left systolic ventricular function is normal. There is moderately increased wall thickness. Transmitral Doppler flow pattern is Grade III-reversible restrictive diastolic dysfunction. Moderately increased left atrial volume. Moderate pulmonary HTN Left pleural effusion. Left atrial pressure is elevated. 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
--- NOTE | 2016-11-10 17:37 | CARD ---
APPROVED REPORT EKG Measurement Heart [id number] CA 152P22 [id number] <Conclusion> Normal sinus rhythm Possible Left atrial enlargement Left ventricular hypertrophy with repolarization abnormality Abnormal ECG
--- NOTE | 2016-11-10 17:39 | CARD ---
APPROVED REPORT EKG Measurement Heart [id number] VT 150P62 [id number] <Conclusion> Normal sinus rhythm Left atrial enlargement Left ventricular hypertrophy with repolarization abnormality Prolonged QT Abnormal ECG
--- NOTE | 2016-11-10 17:39 | CARD ---
APPROVED REPORT EKG Measurement Heart [id number] CT 154P56 [id number] <Conclusion> Sinus tachycardia Left atrial enlargement Left ventricular hypertrophy with repolarization abnormality Abnormal ECG
[2016-11-11] MEDS: Piperacill/Tazo 2.25gm in Dex 2.25 GM/50 ML BAG IVPB SCH ×3 (05:55→21:10)
[2016-11-11 07:01] LABS: BASO # 0.1 K/uL (0.0-0.2); BASO % 0.7 % (0.0-2.0); EOS # 0.6 K/uL (0.0-0.7); EOS % 5.3 % (0.0-4.0); LYMPH # 1.9 K/uL (1.0-4.3); LYMPH % 15.6 % (20.0-40.0); MEAN CELL VOLUME 74.2 fL (81.0-99.0); MEAN CORPUSCULAR HEMOGLOBIN 23.1 pg (27.0-31.0); MEAN CORPUSCULAR HGB CONC 31.2 g/dL (33.0-37.0); MEAN PLATELET VOLUME 7.8 fL (7.2-11.7); MONO # 0.7 K/uL (0.0-0.8); MONO % 6.2 % (0.0-10.0); NEUT # 8.7 K/uL (1.8-7.0); NEUT % 72.2 % (50.0-75.0); RBC 3.92 Mil/uL (3.80-5.20); RED CELL DISTRIBUTION WIDTH 22.4 % (11.5-14.5)
[2016-11-11 07:17] LABS: ALBUMIN 3.2 g/dL (3.5-5.0)
[2016-11-11 07:20] LABS: ALB/GLOB RATIO 1.1 (1.0-2.1)
[2016-11-11 07:21] LABS: CALCIUM 8.9 mg/dl (8.6-10.4); MAGNESIUM 2.2 mg/dL (1.6-2.3)
[2016-11-11] MEDS ORDERED: Potassium Chloride 20 mEq/15 ml LIQ UD PO ONE (08:26)
--- NOTE | 2016-11-11 08:29 | CP.PCM.PN ---
Subjective - Date & Time of Evaluation Date of Evaluation: 11/11/16 Time of Evaluation: 08:27 - Subjective Subjective: seen and examined denies any complaints bp remains high pt explained need for chronic dialysis, upset about it, tearful Objective - Vital Signs/Intake and Output Vital Signs (last 24 hours): Temp Pulse Resp BP Pulse Ox 97.7 F 85 20 179/111 H 97 11/11/16 08:00 11/11/16 08:00 11/11/16 08:00 11/11/16 07:21 11/11/16 08:00 Intake and Output: 11/11/16 11/11/16 06:59 18:59 Intake Total 300 0 Output Total 150 500 Balance 150 -500 - Medications Medications: Current Medications Amlodipine Besylate (Norvasc) 10 mg PO DAILY [facility] Last Admin: 11/10/16 09:06 Dose: Not Given Aspirin (Ecotrin) 81 mg PO DAILY [facility] Last Admin: 11/10/16 09:06 Dose: 81 mg Epoetin Glenn (Procrit) 10,000 unit IV MWF [facility] Last Admin: 11/10/16 13:39 Dose: 10,000 unit Famotidine (Pepcid) 20 mg PO DAILY [facility] Last Admin: 11/10/16 09:42 Dose: Not Given Heparin Sodium (Porcine) (Heparin) 5,000 units SC Q8 [facility] Last Admin: 11/11/16 05:54 Dose: 5,000 units Piperacillin Sod/Tazobactam Sod (Zosyn 2.25 Gm Iv Premix) 2.25 gm in 50 mls @ 100 mls/hr IVPB Q8 [facility] Last Admin: 11/11/16 05:55 Dose: 100 mls/hr Labetalol HCl (Trandate) 100 mg PO TID [facility] Last Admin: 11/10/16 17:12 Dose: 100 mg Ondansetron HCl (Zofran Inj) 4 mg IVP Q8 PRN PRN Reason: Nausea/Vomiting Last Admin: 11/09/16 12:16 Dose: 4 mg Potassium Chloride (Potassium Chloride Oral Soln) 40 meq PO ONCE ONE Stop: 11/11/16 08:27 - Labs Labs: 11/11/16 06:51 11/11/16 06:51 PT 11.2 SECONDS (9.7-12.2) 11/08/16 01:23 INR 1.0 11/08/16 01:23 APTT 39 SECONDS (21-34) H 11/10/16 06:48 - Constitutional Appears: Non-toxic, No Acute Distress, Chronically Ill - Head Exam Head Exam: NORMAL INSPECTION - Eye Exam Eye Exam: Normal appearance - ENT Exam ENT Exam: Mucous Membranes Moist, Normal Exam - Neck Exam Neck Exam: Normal Inspection - Respiratory Exam Respiratory Exam: Clear to Ausculation Bilateral, NORMAL BREATHING PATTERN - Cardiovascular Exam Cardiovascular Exam: REGULAR RHYTHM, RRR - GI/Abdominal Exam GI & Abdominal Exam: Soft, Normal Bowel Sounds - Extremities Exam Extremities Exam: Normal Inspection Assessment and Plan (1) ESRD (end stage renal disease) Status: Acute (2) Anemia Status: Acute (3) CHF (congestive heart failure) Status: Acute (4) Hypokalemia Status: Acute (5) NSTEMI (non-ST elevated myocardial infarction) Status: Acute - Assessment and Plan (Free Text) Assessment: hd tomorrow, will need chronic dialysis consult dr larose for russ follow serology, hep b/c, lizabeth neg. normal complements renal us suggestive of chronic kidney dz increase hydralazine dose
--- NOTE | 2016-11-11 10:15 | RAD ---
HISTORY: CHF COMPARISON: Dated 11/09/2016 FINDINGS: LUNGS: Slightly improved pulmonary edema/CHF. PLEURA: No significant pleural effusion identified, no pneumothorax apparent. CARDIOVASCULAR: Cardiomegaly OSSEOUS STRUCTURES: No significant abnormalities. VISUALIZED UPPER ABDOMEN: Normal. OTHER FINDINGS: None. IMPRESSION: Slightly improved pulmonary edema/ CHF
--- NOTE | 2016-11-11 14:58 | CP.PCM.CON ---
History of Present Illness - History of Present Illness History of Present Illness: Surgery: Dr. Burgos CC: need for chronic dialysis HPI: Patient is a 36 y/o female w/ pmhx of HTN currently admitted and being treated for SOB, NSTEMI, and ARF. Patient presented on 11/08 for worsening SOB mainly while laying flat over the past week. She states she has had severe leg swelling in the past in which she was evaluated by her primary doctor about 5 months ago. She sates at that time everything was "normal" but she was diagnosed with HTN and subsequently started on medications. Patient reports medications made her "sick" so she stopped taking them. She states she started to notice worsening SOB about 5 days prior to admission. She states she couldn' t sleep at night because when she laid flat she was unable to take deep breaths. She then developed left sided chest pain which prompted ED visit. Once admitted, a right femoral temporary HD catheter was inserted. Patient has undergone a total of 2 HD sessions. She reports resolution of her difficulty breathing and currently comfortable on nasal cannula. PMH: HTN, anxiety, anemia PSH; denies Social: +smoker, denies ETOH or drug abuse Review of Systems - Review of Systems All systems: reviewed and no additional remarkable complaints except Review of Systems: unless stated in HPI Past Patient History - Past Medical History & Family History Past Medical History?: Yes - Past Social History Smoking Status: Heavy Smoker > 10 Cigarettes Daily Chewing Tobacco Use: No Cigar Use: No - CARDIAC Hx Hypertension: Yes - PULMONARY Hx Respiratory Disorders: No - NEUROLOGICAL Hx Neurological Disorder: No - HEENT Hx HEENT Problems: Yes Other/Comment: eyeglasses for reading - RENAL Hx Chronic Kidney Disease: No - ENDOCRINE/METABOLIC Hx Endocrine Disorders: No - HEMATOLOGICAL/ONCOLOGICAL Hx Anemia: Yes - INTEGUMENTARY Hx Dermatological Problems: No - MUSCULOSKELETAL/RHEUMATOLOGICAL Hx Musculoskeletal Disorders: No Hx Falls: Yes - GASTROINTESTINAL Hx Gastrointestinal Disorders: No - GENITOURINARY/GYNECOLOGICAL Hx Genitourinary Disorders: No - PSYCHIATRIC Hx Substance Use: No - SURGICAL HISTORY Hx Surgeries: No - ANESTHESIA Hx Anesthesia: No Hx Anesthesia Reactions: No Hx Malignant Hyperthermia: No Has any member of the family had a problem w/ anesthesia?: No Meds Allergies/Adverse Reactions: Allergies Allergy/AdvReac Type Severity Reaction Status Date / Time No Known Allergies Allergy Verified 11/08/16 00:53 - Medications Medications: Current Medications Amlodipine Besylate (Norvasc) 10 mg PO DAILY [facility] Last Admin: 11/11/16 09:05 Dose: 10 mg Aspirin (Ecotrin) 81 mg PO DAILY [facility] Last Admin: 11/11/16 09:05 Dose: 81 mg Epoetin Glenn (Procrit) 10,000 unit IV MWF [facility] Last Admin: 11/10/16 13:39 Dose: 10,000 unit Famotidine (Pepcid) 20 mg PO DAILY [facility] Last Admin: 11/11/16 09:05 Dose: 20 mg Heparin Sodium (Porcine) (Heparin) 5,000 units SC Q8 [facility] Last Admin: 11/11/16 13:26 Dose: 5,000 units Hydralazine HCl (Apresoline) 75 mg PO Q8 [facility] Last Admin: 11/11/16 13:19 Dose: 75 mg Piperacillin Sod/Tazobactam Sod (Zosyn 2.25 Gm Iv Premix) 2.25 gm in 50 mls @ 100 mls/hr IVPB Q8 [facility] Last Admin: 11/11/16 13:20 Dose: 100 mls/hr Labetalol HCl (Trandate) 100 mg PO TID [facility] Last Admin: 11/11/16 13:19 Dose: 100 mg Ondansetron HCl (Zofran Inj) 4 mg IVP Q8 PRN PRN Reason: Nausea/Vomiting Last Admin: 11/11/16 09:50 Dose: 4 mg Physical Exam - Constitutional Appears: Non-toxic, No Acute Distress - Head Exam Head Exam: ATRAUMATIC, NORMOCEPHALIC - Eye Exam Eye Exam: EOMI, Normal appearance - ENT Exam ENT Exam: Mucous Membranes Moist - Respiratory Exam Respiratory Exam: NORMAL BREATHING PATTERN. absent: Respiratory Distress - Cardiovascular Exam Cardiovascular Exam: REGULAR RHYTHM. absent: Tachycardia - Extremities Exam Extremities exam: Positive for: normal inspection. Negative for: calf tenderness, pedal edema - Neurological Exam Neurological exam: Alert, Oriented x3 - Psychiatric Exam Psychiatric exam: Normal Affect, Normal Mood - Skin Skin Exam: Dry, Normal Color, Warm Results - Vital Signs Recent Vital Signs: Last Vital Signs Temp 97.8 F 11/11/16 12:00 Pulse 89 11/11/16 14:21 Resp 20 11/11/16 14:21 BP 170/101 H 07/04/17 14:21 Pulse Ox 93 L 11/11/16 14:21 - Labs Result Diagrams: 11/11/16 06:51 11/11/16 06:51 Labs: Laboratory Results - last 24 hr 11/09/16 11/10/16 11/11/16 09:02 17:04 06:51 WBC RBC Hgb Hct MCV MCH MCHC RDW Plt Count MPV Neut % (Auto) Lymph % (Auto) Will % (Auto) Eos % (Auto) Baso % (Auto) Neut # Lymph # Will # Eos # Baso # Sodium 132 Potassium 3.2 L Chloride 93 L Carbon Dioxide 27 Anion Gap 15 BUN 37 H Creatinine 5.3 H Est GFR ( Amer) 11 Est GFR (Non-Af Amer) 9 Random Glucose 95 Calcium 8.9 Phosphorus 5.6 H Magnesium 2.2 Total Bilirubin 0.7 AST 16 ALT 21 Alkaline Phosphatase 85 Total Protein 6.0 L Albumin 3.2 L Globulin 2.8 Albumin/Globulin Ratio 1.1 PTH Intact Whole Molec 249 H Stool Occult Blood Negative 11/11/16 06:51 WBC 12.0 H RBC 3.92 Hgb 9.0 L Hct 29.0 L MCV 74.2 L MCH 23.1 L MCHC 31.2 L RDW 22.4 H Plt Count 253 MPV 7.8 Neut % (Auto) 72.2 Lymph % (Auto) 15.6 L Will % (Auto) 6.2 Eos % (Auto) 5.3 H Baso % (Auto) 0.7 Neut # 8.7 H Lymph # 1.9 Will # 0.7 Eos # 0.6 Baso # 0.1 Sodium Potassium Chloride Carbon Dioxide Anion Gap BUN Creatinine Est GFR ( Amer) Est GFR (Non-Af Amer) Random Glucose Calcium Phosphorus Magnesium Total Bilirubin AST ALT Alkaline Phosphatase Total Protein Albumin Globulin Albumin/Globulin Ratio PTH Intact Whole Molec Stool Occult Blood Assessment & Plan - Assessment and Plan (Free Text) Assessment: 36 y/o female w/ Acute on chronic kidney failure undergoing HD Plan: -per nephrology, patient will need shelter HD- requesting permacath insertion and AVF -will make patient NPO at [place] -possible insertion of permacath this week -vein mapping -left arm precautions -further recs per Dr. Burgos AKite PGY3
--- NOTE | 2016-11-11 15:14 | CP.CCUPN ---
CCU Subjective - Physician Review Events Since Last Encounter (Free Text): 11/11/16 15:11 the patient seen and examined in the intensive care unit. Case discussed with house staff in thing rounds. 36 F PMHx HTN admitted with acute heart failure, acute renal insufficiency, acute pulmonary edema, and severe hypokalemia. Status post hemodialysis x2 thru right femoral catheter Seen by cardiology for elevated cardiac enzymes Now resting comfortably in no respiratory distress Afebrile No chest pain CCU Objective - Vital Signs / Intake & Output Vital Signs (Last 4 hours): Vital Signs Temp Pulse Resp BP Pulse Ox 11/11/16 14:21 89 20 170/101 H 93 L 11/11/16 14:00 89 24 97 11/11/16 13:21 90 20 164/104 H 95 11/11/16 13:00 89 24 93 L 11/11/16 12:21 90 11 L 183/108 H 97 11/11/16 12:00 97.8 F 89 16 94 L 11/11/16 11:45 89 20 178/104 H 97 11/11/16 11:39 89 17 180/114 H 95 11/11/16 11:21 89 16 190/108 H 98 Intake and Output (Last 8hrs): Intake & Output 11/11/16 11/11/16 11/11/16 06:59 14:59 22:59 Intake Total 150 450 Output Total 750 Balance 150 -300 Intake: Intake, IV Amount 50 50 Left Hand 50 Right Antecubital 50 Oral 100 400 Output: Urine 500 Urine, Voided 500 Emesis 250 Other: # Bowel Movements 1 0 - Physical Exam Head: Positive for: Atraumatic, Normocephalic Extroacular Muscles: Positive for: EOMI Neck: Positive for: Normal Range of Motion Respiratory/Chest: Positive for: Clear to Auscultation, Good Air Exchange. Negative for: Respiratory Distress, Accessory Muscle Use Cardiovascular: Positive for: Regular Rate and Rhythm. Negative for: Murmurs Lower Extremity: Positive for: Normal Inspection. Negative for: Edema Psychiatric: Positive for: Alert, Oriented x 3 - Medications Active Medications: Active Medications Generic Name Dose Route Start Last Admin Trade Name Freq PRN Reason Stop Dose Admin Amlodipine Besylate 10 mg 11/09/16 10:00 11/11/16 09:05 Norvasc PO 10 mg DAILY [facility] Administration Aspirin 81 mg 11/08/16 10:00 11/11/16 09:05 Ecotrin PO 81 mg DAILY [facility]A Administration Epoetin Glenn 10,000 unit 11/10/16 10:45 11/10/16 13:39 Procrit IV 10,000 unit MWF [facility]A Administration Famotidine 20 mg 11/10/16 10:00 11/11/16 09:05 Pepcid PO 20 mg DAILY [facility]A Administration Heparin Sodium (Porcine) 5,000 units 11/10/16 14:00 11/11/16 13:26 Heparin SC 5,000 units Q8 ISABELLA Administration Hydralazine HCl 75 mg 11/11/16 08:27 11/11/16 13:19 Apresoline PO 75 mg Q8 [facility] Administration Piperacillin Sod/Tazobactam Sod 2.25 gm in 50 mls @ 100 mls/hr 11/10/16 14:00 11/11/16 13:20 Zosyn 2.25 Gm Iv Premix IVPB 100 mls/hr Q8 [facility]A Administration Labetalol HCl 100 mg 11/09/16 10:00 11/11/16 13:19 Trandate PO 100 mg TID ISABELLA Administration Ondansetron HCl 4 mg 11/08/16 11:13 11/11/16 09:50 Zofran Inj IVP 4 mg Q8 PRN Administration Nausea/Vomiting - Patient Studies Lab Studies: Lab Studies 11/11/16 11/11/16 11/10/16 Range/Units 06:51 06:51 17:04 WBC 12.0 H (4.8-10.8) K/uL RBC 3.92 (3.80-5.20) Mil/uL Hgb 9.0 L (11.0-16.0) g/dL Hct 29.0 L (34.0-47.0) % MCV 74.2 L (81.0-99.0) fL MCH 23.1 L (27.0-31.0) pg MCHC 31.2 L (33.0-37.0) g/dL RDW 22.4 H (11.5-14.5) % Plt Count 253 (130-400) K/uL MPV 7.8 (7.2-11.7) fL Neut % (Auto) 72.2 (50.0-75.0) % Lymph % (Auto) 15.6 L (20.0-40.0) % [place] % (Auto) 6.2 (0.0-10.0) % Eos % (Auto) 5.3 H (0.0-4.0) % Baso % (Auto) 0.7 (0.0-2.0) % Neut # 8.7 H (1.8-7.0) K/uL Lymph # 1.9 (1.0-4.3) K/uL [place] # 0.7 (0.0-0.8) K/uL Eos # 0.6 (0.0-0.7) K/uL Baso # 0.1 (0.0-0.2) K/uL Sodium 132 (132-148) mmol/L Potassium 3.2 L (3.6-5.2) mmol/L Chloride 93 L (98-107) mmol/L Carbon Dioxide 27 (22-30) mmol/L Anion Gap 15 (10-20) BUN 37 H (7-17) mg/dL Creatinine 5.3 H (0.7-1.2) MG/DL Est GFR ( Amer) 11 Est GFR (Non-Af Amer) 9 Random Glucose 95 (65-105) mg/dL Calcium 8.9 (8.6-10.4) mg/dl Phosphorus 5.6 H (2.5-4.5) mg/dL Magnesium 2.2 (1.6-2.3) mg/dL Total Bilirubin 0.7 (0.2-1.3) mg/dL AST 16 (14-36) U/L ALT 21 (9-52) U/L Alkaline Phosphatase 85 (38-126) U/L Total Protein 6.0 L (6.3-8.3) g/dL Albumin 3.2 L (3.5-5.0) g/dL Globulin 2.8 (2.2-3.9) gm/dL Albumin/Globulin Ratio 1.1 (1.0-2.1) PTH Intact Whole Molec (14-64) pg/mL Stool Occult Blood Negative (NEGATIVE) 11/09/16 Range/Units 09:02 WBC (4.8-10.8) K/uL RBC (3.80-5.20) Mil/uL Hgb (11.0-16.0) g/dL Hct (34.0-47.0) % MCV (81.0-99.0) fL MCH (27.0-31.0) pg MCHC (33.0-37.0) g/dL RDW (11.5-14.5) % Plt Count (130-400) K/uL MPV (7.2-11.7) fL Neut % (Auto) (50.0-75.0) % Lymph % (Auto) (20.0-40.0) % [place] % (Auto) (0.0-10.0) % Eos % (Auto) (0.0-4.0) % Baso % (Auto) (0.0-2.0) % Neut # (1.8-7.0) K/uL Lymph # (1.0-4.3) K/uL [place] # (0.0-0.8) K/uL Eos # (0.0-0.7) K/uL Baso # (0.0-0.2) K/uL Sodium (132-148) mmol/L Potassium (3.6-5.2) mmol/L Chloride (98-107) mmol/L Carbon Dioxide (22-30) mmol/L Anion Gap (10-20) BUN (7-17) mg/dL Creatinine (0.7-1.2) MG/DL Est GFR ( Amer) Est GFR (Non-Af Amer) Random Glucose (65-105) mg/dL Calcium (8.6-10.4) mg/dl Phosphorus (2.5-4.5) mg/dL Magnesium (1.6-2.3) mg/dL Total Bilirubin (0.2-1.3) mg/dL AST (14-36) U/L ALT (9-52) U/L Alkaline Phosphatase (38-126) U/L Total Protein (6.3-8.3) g/dL Albumin (3.5-5.0) g/dL Globulin (2.2-3.9) gm/dL Albumin/Globulin Ratio (1.0-2.1) PTH Intact Whole Molec 249 H (14-64) pg/mL Stool Occult Blood (NEGATIVE) Laboratory Results - last 24 hr 11/09/16 11/10/1617 09:02 17:04 06:51 WBC RBC Hgb Hct MCV MCH MCHC RDW Plt Count MPV Neut % (Auto) Lymph % (Auto) [place] % (Auto) Eos % (Auto) Baso % (Auto) Neut # Lymph # [place] # Eos # Baso # Sodium 132 Potassium 3.2 L Chloride 93 L Carbon Dioxide 27 Anion Gap 15 BUN 37 H Creatinine 5.3 H Est GFR ( Amer) 11 Est GFR (Non-Af Amer) 9 Random Glucose 95 Calcium 8.9 Phosphorus 5.6 H Magnesium 2.2 Total Bilirubin 0.7 AST 16 ALT 21 Alkaline Phosphatase 85 Total Protein 6.0 L Albumin 3.2 L Globulin 2.8 Albumin/Globulin Ratio 1.1 PTH Intact Whole Molec 249 H Stool Occult Blood Negative 11/11/16 06:51 WBC 12.0 H RBC 3.92 Hgb 9.0 L Hct 29.0 L MCV 74.2 L MCH 23.1 L MCHC 31.2 L RDW 22.4 H Plt Count 253 MPV 7.8 Neut % (Auto) 72.2 Lymph % (Auto) 15.6 L [place] % (Auto) 6.2 Eos % (Auto) 5.3 H Baso % (Auto) 0.7 Neut # 8.7 H Lymph # 1.9 [place] # 0.7 Eos # 0.6 Baso # 0.1 Sodium Potassium Chloride Carbon Dioxide Anion Gap BUN Creatinine Est GFR ( Amer) Est GFR (Non-Af Amer) Random Glucose Calcium Phosphorus Magnesium Total Bilirubin AST ALT Alkaline Phosphatase Total Protein Albumin Globulin Albumin/Globulin Ratio PTH Intact Whole Molec Stool Occult Blood Critical Care Progress Note - Nutrition Nutrition: Nutrition Category Date Time Status Heart Healthy Diet [DIET] Diets 11/09/16 Dinner Active NPO Diet [DIET] Diets 11/12/16 Breakfast Active Assessment/Plan (1) CKD stage 5 secondary to hypertension Current Visit: Yes Status: Acute Comment: sstatus post hemodialysis x2 and transfusion of packed RBCs For permacath placement by surgery breathing much improved Possible pneumonia on antibiotics Seen by cardiology for elevated troponin and possible cardiac catheter when stable (2) Pneumonia Current Visit: Yes Status: Acute
--- NOTE | 2016-11-11 21:05 | CP.PCM.PN ---
<Stew Mendez R - Last Filed: 11/11/16 21:00> Subjective - Date & Time of Evaluation Date of Evaluation: 11/11/16 Time of Evaluation: 17:00 - Subjective Subjective: PGY-[address] Garcia's Service: Patient was examined at bedside in the ICU. Patient did not appear in acute distress. She stated she was comfortable. Patient was on bipap. She denied chest pain, shortness of breath, abdominal pain, diarrhea, constipation, vomiting, bleeding. Objective - Vital Signs/Intake and Output Vital Signs (last 24 hours): Temp Pulse Resp BP Pulse Ox 98.4 F 83 18 157/89 H 99 11/11/16 20:00 11/11/16 20:01 11/11/16 20:01 11/11/16 20:01 11/11/16 20:01 Intake and Output: 11/11/16 11/12/16 18:59 06:59 Intake Total 475 0 Output Total 1150 0 Balance -675 0 - Medications Medications: Current Medications Amlodipine Besylate (Norvasc) 10 mg PO DAILY [facility] Last Admin: 11/11/16 09:05 Dose: 10 mg Aspirin (Ecotrin) 81 mg PO DAILY [facility] Last Admin: 11/11/16 09:05 Dose: 81 mg Epoetin Glenn (Procrit) 10,000 unit IV MWF [facility] Last Admin: 11/10/16 13:39 Dose: 10,000 unit Famotidine (Pepcid) 20 mg PO DAILY [facility] Last Admin: 11/11/16 09:05 Dose: 20 mg Heparin Sodium (Porcine) (Heparin) 5,000 units SC Q8 [facility] Last Admin: 11/11/16 13:26 Dose: 5,000 units Hydralazine HCl (Apresoline) 75 mg PO Q8 [facility] Last Admin: 11/11/16 13:19 Dose: 75 mg Piperacillin Sod/Tazobactam Sod (Zosyn 2.25 Gm Iv Premix) 2.25 gm in 50 mls @ 100 mls/hr IVPB Q8 [facility] Last Admin: 11/11/16 13:20 Dose: 100 mls/hr Labetalol HCl (Trandate) 100 mg PO TID [facility] Last Admin: 11/11/16 17:19 Dose: 100 mg Ondansetron HCl (Zofran Inj) 4 mg IVP Q8 PRN PRN Reason: Nausea/Vomiting Last Admin: 11/11/16 09:50 Dose: 4 mg - Labs Labs: 11/11/16 06:51 11/11/16 06:51 PT 11.2 SECONDS (9.7-12.2) 11/08/16 01:23 INR 1.0 11/08/16 01:23 APTT 39 SECONDS (21-34) H 11/10/16 06:48 - Constitutional Appears: Well - Head Exam Head Exam: ATRAUMATIC, NORMAL INSPECTION, NORMOCEPHALIC - Eye Exam Eye Exam: EOMI, Normal appearance, PERRL - ENT Exam ENT Exam: Mucous Membranes Moist, Normal Exam - Respiratory Exam Respiratory Exam: Clear to Ausculation Bilateral, NORMAL BREATHING PATTERN - Cardiovascular Exam Cardiovascular Exam: REGULAR RHYTHM, +S1, +S2. absent: Murmur - GI/Abdominal Exam GI & Abdominal Exam: Soft, Normal Bowel Sounds. absent: Tenderness - Rectal Exam Rectal Exam: Deferred - Extremities Exam Extremities Exam: Full ROM, Normal Capillary Refill, Normal Inspection. absent : Joint Swelling, Pedal Edema - Neurological Exam Neurological Exam: Alert, Awake, Oriented x3 - Psychiatric Exam Psychiatric exam: Normal Affect, Normal Mood - Skin Skin Exam: Dry, Intact, Normal Color, Warm Assessment and Plan (1) Chest pain Status: Acute (2) Hypoxia Status: Acute (3) AMPARO (acute kidney injury) Status: Acute (4) Anemia Status: Acute (5) CHF (congestive heart failure) Status: Acute (6) Hypokalemia Status: Acute (7) Prophylactic measure Status: Acute - Assessment and Plan (Free Text) Assessment: (1) Chest pain Assessment and Plan: NSTEMI /CHF-Elevated troponin and BNP EKG interpretation by Dr Reno - T inversions in lateral leads, ST depression on IV heparin, received aspirin and NTG add beta sidney ECHO Status: Acute (2) Hypoxia Assessment and Plan: 1.Respiratory Insufficiency and hypoxia - Pneumonia r/o CHF BIPAP f/u with blood/urine cultures f/u mycoplasma pneumoniae serologies azithromycin 500mg ivp daily ceftriaxone 1gm ivp daily mrsa screen legionella AG urine Status: Acute (3) AMPARO (acute kidney injury) Assessment and Plan: 11/11: Patient agreed to have hemodialysis catheter and hemodialysis. She received HD on 11/08. patient has a right-sided femoral hemodialysis catheter Renal insufficiency - f/u BUN/Cr Renal ultrasound Per Dr Julian Gordon [11/08]: "RENAL US CHECK SEROLOGIES, IMMUNOLOGICS CONTROL BP REPLETE K MONITOR UO DIALYSIS IF NOT BETTER- DISCUSSED WITH FAMILY" Status: Acute (4) Anemia Assessment and Plan: Received 1 unit of blood transfusion during HD on 11/08 Microcytic anemia - denies GI blood loss or heavy menstrual bleeding f/u iron, TIBC FOBT collected Status: Acute (5) CHF (congestive heart failure) Assessment and Plan: 11/11: increasing CHF, increasing fluid overload in lungs elevated BNP ECHO Ordered Status: Acute (6) Hypokalemia Assessment and Plan: Electrolyte imbalance - Hypokalemia/Hyponatremia - potassium given in ER. Monitor labs and replace as needed Status: Acute (7) Prophylactic measure Assessment and Plan: pepcid 20mg IVP daily heparin drip Status: Acute <Patric Garcia Jr. - Last Filed: 11/18/16 10:32> Objective - Vital Signs/Intake and Output Vital Signs (last 24 hours): Temp Pulse Resp BP Pulse Ox 98.2 F 73 20 118/72 100 11/18/16 08:18 11/18/16 08:18 11/18/16 08:18 11/18/16 08:18 11/18/16 08:18 - Medications Medications: Current Medications Amlodipine Besylate (Norvasc) 10 mg PO DAILY [facility] Last Admin: 11/18/16 09:37 Dose: 10 mg Aspirin (Ecotrin) 81 mg PO DAILY [facility] Last Admin: 11/18/16 09:37 Dose: 81 mg Calcium Acetate (Phoslo) 667 mg PO TIDCC [facility] Clonidine HCl (Catapres) 0.1 mg PO BID [facility] Last Admin: 11/18/16 09:37 Dose: 0.1 mg Epoetin Glenn (Procrit) 10,000 unit IV MWF [facility] Last Admin: 11/17/16 10:37 Dose: 10,000 unit Escitalopram Oxalate (Lexapro) 10 mg PO DAILY [facility] Last Admin: 11/18/16 09:37 Dose: 10 mg Famotidine (Pepcid) 20 mg PO DAILY [facility] Last Admin: 11/18/16 09:37 Dose: 20 mg Ferric Sodium Gluconate Complex (Ferrlecit) 125 mg IVPB DAILY [facility] Stop: 11/22/16 13:16 Last Admin: 11/18/16 09:36 Dose: 125 mg Heparin Sodium (Porcine) (Heparin) 5,000 units SC Q8 [facility] Last Admin: 11/18/16 08:03 Dose: 5,000 units Ibuprofen (Motrin Tab) 600 mg PO TID PRN PRN Reason: Pain, Mild (1-3) Last Admin: 11/17/16 18:26 Dose: 600 mg Labetalol HCl (Normodyne) 300 mg PO TID [facility] Last Admin: 11/18/16 09:38 Dose: 300 mg Lorazepam (Ativan) 0.5 mg PO Q6H PRN PRN Reason: Anxiety Last Admin: 11/17/16 00:26 Dose: 0.5 mg Minoxidil (Minoxidil) 5 mg PO BID [facility] Last Admin: 11/18/16 09:37 Dose: 5 mg Nicotine (Nicoderm Cq) 1 patch TD DAILY [facility] Last Admin: 11/18/16 09:38 Dose: 1 patch Ondansetron HCl (Zofran Inj) 4 mg IVP Q8 PRN PRN Reason: Nausea/Vomiting Last Admin: 11/13/16 16:00 Dose: 4 mg Oxycodone/Acetaminophen (Percocet 5/325 Mg Tab) 1 tab PO Q6H PRN PRN Reason: Pain, severe (8-10) Stop: 11/21/16 06:46 Last Admin: 11/18/16 06:51 Dose: 1 tab - Labs Labs: 11/18/16 08:27 11/18/16 08:27 PT 11.9 SECONDS (9.7-12.2) 11/13/16 06:34 INR 1.1 11/13/16 06:34 APTT 27 SECONDS (21-34) D 11/13/16 06:34 Attending/Attestation - Attestation I have personally seen and examined this patient.: Yes I have fully participated in the care of the patient.: Yes I have reviewed all pertinent clinical information, including history, physical exam and plan: Yes Notes (Text): 11/18/16 10:32 Agree with resident note and findings
[2016-11-12] MEDS: Piperacill/Tazo 2.25gm in Dex 2.25 GM/50 ML BAG IVPB SCH ×3 (05:20→22:33)
[2016-11-12 06:37] LABS: BASO # 0.1 K/uL (0.0-0.2); BASO % 0.6 % (0.0-2.0); EOS # 0.6 K/uL (0.0-0.7); EOS % 5.6 % (0.0-4.0); HEMOGLOBIN 9.6 g/dL (11.0-16.0); LYMPH # 1.4 K/uL (1.0-4.3); LYMPH % 12.3 % (20.0-40.0); MEAN CELL VOLUME 73.8 fL (81.0-99.0); MEAN CORPUSCULAR HEMOGLOBIN 23.1 pg (27.0-31.0); MEAN CORPUSCULAR HGB CONC 31.3 g/dL (33.0-37.0); MEAN PLATELET VOLUME 7.6 fL (7.2-11.7); MONO # 0.5 K/uL (0.0-0.8); MONO % 4.7 % (0.0-10.0); NEUT # 8.7 K/uL (1.8-7.0); NEUT % 76.8 % (50.0-75.0); RBC 4.15 Mil/uL (3.80-5.20); RED CELL DISTRIBUTION WIDTH 22.6 % (11.5-14.5); WHITE BLOOD COUNT 11.3 K/uL (4.8-10.8)
--- NOTE | 2016-11-12 06:37 | CP.CCUPN ---
<SotoCandaceSoraya - Last Filed: 11/12/16 12:49> CCU Subjective - Physician Review Subjective (Free Text): 11/12/16 10:56 Patient was examined at bedside in the AM. Patient stated she is feeling very anxious and that she normally feels anxious at home. Patient states her fiance of 14 years left her for another woman and she now lives with her cousin. Since this event she has not spoken to a therapist or doctor. Patient also states she felt like she wanted to jump out the window yesterday. Patient states she feels trapped in the hospital and she is also anxious because she has not been able to smoke a cigarette in the hospital since she has been admitted. Patient states she is nauseated and has vomited once this morning. Patient states she has also had two loose stools once yesterday and once today. Patient denies shortness of breath or chest pain. CCU Objective - Vital Signs / Intake & Output Vital Signs (Last 4 hours): Vital Signs Temp Pulse Resp BP Pulse Ox 11/12/16 06:02 95 H 24 193/111 H 96 11/12/16 05:09 92 H 22 190/106 H 96 11/12/16 04:57 89 23 184/107 H 97 11/12/16 04:00 98.7 F 11/12/16 03:09 86 24 176/108 H 98 Intake and Output (Last 8hrs): Intake & Output 11/11/16 11/11/16 11/12/16 14:59 22:59 06:59 Intake Total 450 195 230 Output Total 750 400 200 Balance -300 -205 30 Weight 182 lb 15.739 oz Intake: Intake, IV Amount 50 50 50 Right Antecubital 50 Right Hand 50 50 Oral 400 145 180 Output: Urine 500 400 200 Urine, Voided 500 400 200 Emesis 250 Other: # Voids Urine, Voided 1 # Bowel Movements 0 1 - Physical Exam Head: Positive for: Atraumatic, Normocephalic Extroacular Muscles: Positive for: EOMI Neck: Positive for: Normal Range of Motion Respiratory/Chest: Positive for: Clear to Auscultation, Good Air Exchange. Negative for: Respiratory Distress, Accessory Muscle Use Cardiovascular: Positive for: Regular Rate and Rhythm, Normal S1, S2. Negative for: Murmurs Abdomen: Positive for: Normal Bowel Sounds. Negative for: Tenderness, Distention, Guarding Upper Extremity: Positive for: Normal Inspection. Negative for: Edema, Swelling Lower Extremity: Positive for: Normal Inspection. Negative for: Edema Psychiatric: Positive for: Alert, Oriented x 3, Anxious, Suicidal Ideation - Medications Active Medications: Active Medications Generic Name Dose Route Start Last Admin Trade Name Freq PRN Reason Stop Dose Admin Amlodipine Besylate 10 mg 11/09/16 10:00 11/11/16 09:05 Norvasc PO 10 mg DAILY ISABELLA Administration Aspirin 81 mg 11/08/16 10:00 11/11/16 09:05 Ecotrin PO 81 mg DAILY ISABELLA Administration Epoetin Glenn 10,000 unit 11/10/16 10:45 11/10/16 13:39 Procrit IV 10,000 unit MWF ISABELLA Administration Famotidine 20 mg 11/10/16 10:00 11/11/16 09:05 Pepcid PO 20 mg DAILY ISABELLA Administration Heparin Sodium (Porcine) 5,000 units 11/10/16 14:00 11/12/16 05:00 Heparin SC 5,000 units Q8 ISABELLA Administration Hydralazine HCl 75 mg 11/11/16 08:27 11/12/16 05:20 Apresoline PO 75 mg Q8 ISABELLA Administration Piperacillin Sod/Tazobactam Sod 2.25 gm in 50 mls @ 100 mls/hr 11/10/16 14:00 11/12/16 05:20 Zosyn 2.25 Gm Iv Premix IVPB 100 mls/hr Q8 ISABELLA Administration Labetalol HCl 100 mg 11/09/16 10:00 11/11/16 17:19 Trandate PO 100 mg TID ISABELLA Administration Ondansetron HCl 4 mg 11/08/16 11:13 11/11/16 09:50 Zofran Inj IVP 4 mg Q8 PRN Administration Nausea/Vomiting - Patient Studies Lab Studies: Lab Studies 11/11/16 11/11/16 11/08/16 Range/Units 06:51 06:51 12:04 WBC 12.0 H (4.8-10.8) K/uL RBC 3.92 (3.80-5.20) Mil/uL Hgb 9.0 L (11.0-16.0) g/dL Hct 29.0 L (34.0-47.0) % MCV 74.2 L (81.0-99.0) fL MCH 23.1 L (27.0-31.0) pg MCHC 31.2 L (33.0-37.0) g/dL RDW 22.4 H (11.5-14.5) % Plt Count 253 (130-400) K/uL MPV 7.8 (7.2-11.7) fL Neut % (Auto) 72.2 (50.0-75.0) % Lymph % (Auto) 15.6 L (20.0-40.0) % [place] % (Auto) 6.2 (0.0-10.0) % Eos % (Auto) 5.3 H (0.0-4.0) % Baso % (Auto) 0.7 (0.0-2.0) % Neut # 8.7 H (1.8-7.0) K/uL Lymph # 1.9 (1.0-4.3) K/uL [place] # 0.7 (0.0-0.8) K/uL Eos # 0.6 (0.0-0.7) K/uL Baso # 0.1 (0.0-0.2) K/uL Sodium 132 (132-148) mmol/L Potassium 3.2 L (3.6-5.2) mmol/L Chloride 93 L (98-107) mmol/L Carbon Dioxide 27 (22-30) mmol/L Anion Gap 15 (10-20) BUN 37 H (7-17) mg/dL Creatinine 5.3 H (0.7-1.2) MG/DL Est GFR ( Amer) 11 Est GFR (Non-Af Amer) 9 Random Glucose 95 (65-105) mg/dL Calcium 8.9 (8.6-10.4) mg/dl Phosphorus 5.6 H (2.5-4.5) mg/dL Magnesium 2.2 (1.6-2.3) mg/dL Total Bilirubin 0.7 (0.2-1.3) mg/dL AST 16 (14-36) U/L ALT 21 (9-52) U/L Alkaline Phosphatase 85 (38-126) U/L Total Protein 6.0 L (6.3-8.3) g/dL Albumin 3.2 L (3.5-5.0) g/dL Globulin 2.8 (2.2-3.9) gm/dL Albumin/Globulin Ratio 1.1 (1.0-2.1) ANCA Screen Negative (NEGATIVE) c-ANCA Titer TNP p-ANCA Titer TNP Atypical p-ANCA Titer TNP Mycoplasma pneumon IgG (<=0.90) Mycoplasma pneumon IgM (<770) U/mL 11/08/16 Range/Units 09:45 WBC (4.8-10.8) K/uL RBC (3.80-5.20) Mil/uL Hgb (11.0-16.0) g/dL Hct (34.0-47.0) % MCV (81.0-99.0) fL MCH (27.0-31.0) pg MCHC (33.0-37.0) g/dL RDW (11.5-14.5) % Plt Count (130-400) K/uL MPV (7.2-11.7) fL Neut % (Auto) (50.0-75.0) % Lymph % (Auto) (20.0-40.0) % [place] % (Auto) (0.0-10.0) % Eos % (Auto) (0.0-4.0) % Baso % (Auto) (0.0-2.0) % Neut # (1.8-7.0) K/uL Lymph # (1.0-4.3) K/uL [place] # (0.0-0.8) K/uL Eos # (0.0-0.7) K/uL Baso # (0.0-0.2) K/uL Sodium (132-148) mmol/L Potassium (3.6-5.2) mmol/L Chloride (98-107) mmol/L Carbon Dioxide (22-30) mmol/L Anion Gap (10-20) BUN (7-17) mg/dL Creatinine (0.7-1.2) MG/DL Est GFR ( Amer) Est GFR (Non-Af Amer) Random Glucose (65-105) mg/dL Calcium (8.6-10.4) mg/dl Phosphorus (2.5-4.5) mg/dL Magnesium (1.6-2.3) mg/dL Total Bilirubin (0.2-1.3) mg/dL AST (14-36) U/L ALT (9-52) U/L Alkaline Phosphatase (38-126) U/L Total Protein (6.3-8.3) g/dL Albumin (3.5-5.0) g/dL Globulin (2.2-3.9) gm/dL Albumin/Globulin Ratio (1.0-2.1) ANCA Screen (NEGATIVE) c-ANCA Titer p-ANCA Titer Atypical p-ANCA Titer Mycoplasma pneumon IgG 2.45 H (<=0.90) Mycoplasma pneumon IgM 64 (<770) U/mL Laboratory Results - last 24 hr 11/08/16 11/08/16 11/11/16 09:45 12:04 06:51 WBC RBC Hgb Hct MCV MCH MCHC RDW Plt Count MPV Neut % (Auto) Lymph % (Auto) [place] % (Auto) Eos % (Auto) Baso % (Auto) Neut # Lymph # [place] # Eos # Baso # Sodium 132 Potassium 3.2 L Chloride 93 L Carbon Dioxide 27 Anion Gap 15 BUN 37 H Creatinine 5.3 H Est GFR ( Amer) 11 Est GFR (Non-Af Amer) 9 Random Glucose 95 Calcium 8.9 Phosphorus 5.6 H Magnesium 2.2 Total Bilirubin 0.7 AST 16 ALT 21 Alkaline Phosphatase 85 Total Protein 6.0 L Albumin 3.2 L Globulin 2.8 Albumin/Globulin Ratio 1.1 ANCA Screen Negative c-ANCA Titer TNP p-ANCA Titer TNP Atypical p-ANCA Titer TNP Mycoplasma pneumon IgG 2.45 H Mycoplasma pneumon IgM 64 11/11/16 06:51 WBC 12.0 H RBC 3.92 Hgb 9.0 L Hct 29.0 L MCV 74.2 L MCH 23.1 L MCHC 31.2 L RDW 22.4 H Plt Count 253 MPV 7.8 Neut % (Auto) 72.2 Lymph % (Auto) 15.6 L [place] % (Auto) 6.2 Eos % (Auto) 5.3 H Baso % (Auto) 0.7 Neut # 8.7 H Lymph # 1.9 [place] # 0.7 Eos # 0.6 Baso # 0.1 Sodium Potassium Chloride Carbon Dioxide Anion Gap BUN Creatinine Est GFR ( Amer) Est GFR (Non-Af Amer) Random Glucose Calcium Phosphorus Magnesium Total Bilirubin AST ALT Alkaline Phosphatase Total Protein Albumin Globulin Albumin/Globulin Ratio ANCA Screen c-ANCA Titer p-ANCA Titer Atypical p-ANCA Titer Mycoplasma pneumon IgG Mycoplasma pneumon IgM Review of Systems - Constitutional Constitutional: absent: Fever - Cardiovascular Cardiovascular: Palpitations (patient states she always has palpitations due to her anxiety ). absent: Chest Pain, Dyspnea, Lightheadedness - Respiratory Respiratory: absent: Cough, Dyspnea - Gastrointestinal Gastrointestinal: Diarrhea, Nausea, Vomiting. absent: Abdominal Pain - Genitourinary Genitourinary: absent: Dysuria - Neurological Neurological: absent: Dizziness, Headaches - Psychiatric Psychiatric: Anxiety, Suicidal Ideation (patient stated she felt like jumping out of the window yesterday.) - Endocrine Endocrine: Palpitations Critical Care Progress Note - Nutrition Nutrition: Nutrition Category Date Time Status NPO Diet [DIET] Diets 11/12/16 Breakfast Active Assessment/Plan - Assessment and Plan (Free Text) Assessment: 36 year old female presents to the ED with complaints of left sided chest pain and SOB for three days and associated with non-productive cough. Plan: Neuro: - Alert and oriented 3 - Anxious Pulm: - Chest X-ray (11/11/16): Slightly improved pulmonary edemal CHF - Chest X-ray ( - Nicotine Patch 14mg/24hr daily CV: - Cardiology Consult: Dr. Carvajal --> help appreciated - Aspirin 81mg PO daily - Amlodipine 10mg PO daily - Hydralazine 75mg PO Q8 - ECHO (11/09/16): The left systolic ventricular function is normal. There is moderately increased wall thickness. Transmitral doppler flow pattern is Grade III-reversible restrictive diastolic dysfunction. Moderately increased left atrial volume. Moderate pulmonary HTN. Left pleural effusion. Left atrial pressure is elevated. 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 Heme: - H/H: 9.6/30.6 Renal: - Renal Failure - Fistula Permacath will be performed 11/13/16 - Surgery Consult: Dr. Burgos --> help appreciated - BUN/Cr (11/12/16): 41/6.5; BUN/Cr (11/11/16): 37/5.3 - Monitor I/O - Urine HCG: Negative - Urine Catch: multiple species, propbable contamination - Nephrology Consult: Dr. oJrdan --> help appreciated - f/u Aldosterone - f/u Metanephrines - f/u Plamsa Renin - Epoetin Glenn 10,000 unit IV MWF - Renal Ultrasound (11/08/16): Medical renal disease. No hydronephrosis or nephrolithiasis Endo: - f/u SCL-70 antibody - f/u ANCA GI: - Pepcid 20mg PO daily - f/u C. Diff ID: - Urine Catch: multiple species, propbable contamination - Naris: MRSA not detected - f/u blood culture - Zosyn 2.25gm in 50mls @100mls/hr IVPB (Started on 11/10/16) - f/u Procalcitonin if within range Zosyn can be stopped - f/u HIV antibody - f/u M. Pneumoniae AB (IgG) - f/u C. Diff - f/u anti streptolysin Psychiatry: - Psychiatry Consult: Dr. Mckeon --> help appreciated - Suicidal Ideation - Anxious - Escitalopram 5mg PO daily - Lorazepam 0.5mg PO q6h prn DVT proph - SCDs GI proph - Pepcid 20mg PO daily Gilbert for strict I/O's during acute illness Code status - full code Case discussed with Dr. Ed Soto PGY-1 <Jose Ward S - Last Filed: 11/12/16 17:22> CCU Objective - Vital Signs / Intake & Output Vital Signs (Last 4 hours): Vital Signs Temp Pulse Resp BP BP Pulse Ox 11/12/16 17:00 186/102 H 186/102 H 11/12/16 16:59 92 H 21 99 11/12/16 16:45 89 18 176/97 H 100 11/12/16 16:30 88 21 174/100 H 174/100 H 100 11/12/16 16:15 85 26 H 178/104 H 98 11/12/16 16:00 98.4 F 86 22 170/99 H 170/99 H 98 11/12/16 15:45 86 19 160/96 H 100 11/12/16 15:30 87 19 185/106 H 185/106 H 100 11/12/16 15:15 88 19 174/100 H 174/100 H 99 11/12/16 15:00 85 19 163/97 H 162/97 H 100 07/05/17 14:45 84 21 171/102 H 171/102 H 100 11/12/16 14:30 98.5 F 87 22 175/96 H 99 11/12/16 14:02 91 H 12 171/90 H 96 11/12/16 14:00 88 16 98 Intake and Output (Last 8hrs): Intake & Output 11/12/16 11/12/16 11/12/16 06:59 14:59 22:59 Intake Total 230 250 0 Output Total 200 30 Balance 30 220 0 Weight 182 lb 15.739 oz 180 lb 6.4 oz Intake: Intake, IV Amount 50 Right Hand 50 Oral 180 250 0 Output: Urine 200 30 Urine, Voided 200 30 Other: # Voids Urine, Voided 1 1 # Bowel Movements 1 - Medications Active Medications: Active Medications Generic Name Dose Route Start Last Admin Trade Name Freq PRN Reason Stop Dose Admin Amlodipine Besylate 10 mg 11/09/16 10:00 11/12/16 10:55 Norvasc PO Not Given DAILY COUNTS INCLUDE 234 BEDS AT THE [facility] Aspirin 81 mg 11/08/16 10:00 11/12/16 09:09 Ecotrin PO 81 mg DAILY ISABELLA Administration Epoetin Glenn 10,000 unit 11/12/16 15:00 11/12/16 15:43 Procrit IV 10,000 unit MWF ISABELLA Administration Escitalopram Oxalate 5 mg 11/12/16 12:30 11/12/16 12:43 Lexapro PO 5 mg DAILY ISABELLA Administration Famotidine 20 mg 11/10/16 10:00 11/12/16 09:08 Pepcid PO 20 mg DAILY ISABELLA Administration Heparin Sodium (Porcine) 5,000 units 11/10/16 14:00 11/12/16 05:00 Heparin SC 5,000 units Q8 ISABELLA Administration Hydralazine HCl 75 mg 11/11/16 08:27 11/12/16 15:42 Apresoline PO 75 mg Q8 ISABELLA Administration Piperacillin Sod/Tazobactam Sod 2.25 gm in 50 mls @ 100 mls/hr 11/10/16 14:00 11/12/16 05:20 Zosyn 2.25 Gm Iv Premix IVPB 100 mls/hr Q8 ISABELLA Administration Labetalol HCl 200 mg 11/12/16 18:00 07/05/17 16:15 Trandate PO 200 mg TID ISABELLA Administration Lorazepam 0.5 mg 11/12/16 11:35 Ativan PO Q6H PRN Anxiety Nicotine 1 patch 11/12/16 11:00 11/12/16 12:44 Nicoderm Cq TD 1 patch DAILY ISABELLA Administration Ondansetron HCl 4 mg 11/08/16 11:13 11/11/16 09:50 Zofran Inj IVP 4 mg Q8 PRN Administration Nausea/Vomiting - Patient Studies Lab Studies: Lab Studies 11/12/16 11/12/16 11/12/16 Range/Units 10:01 06:27 06:27 WBC 11.3 H (4.8-10.8) K/uL RBC 4.15 (3.80-5.20) Mil/uL Hgb 9.6 L (11.0-16.0) g/dL Hct 30.6 L (34.0-47.0) % MCV 73.8 L (81.0-99.0) fL MCH 23.1 L (27.0-31.0) pg MCHC 31.3 L (33.0-37.0) g/dL RDW 22.6 H (11.5-14.5) % Plt Count 296 (130-400) K/uL MPV 7.6 (7.2-11.7) fL Neut % (Auto) 76.8 H (50.0-75.0) % Lymph % (Auto) 12.3 L (20.0-40.0) % [place] % (Auto) 4.7 (0.0-10.0) % Eos % (Auto) 5.6 H (0.0-4.0) % Baso % (Auto) 0.6 (0.0-2.0) % Neut # 8.7 H (1.8-7.0) K/uL Lymph # 1.4 (1.0-4.3) K/uL [place] # 0.5 (0.0-0.8) K/uL Eos # 0.6 (0.0-0.7) K/uL Baso # 0.1 (0.0-0.2) K/uL Sodium 133 (132-148) mmol/L Potassium 3.7 (3.6-5.2) mmol/L Chloride 94 L (98-107) mmol/L Carbon Dioxide 25 (22-30) mmol/L Anion Gap 18 (10-20) BUN 41 H (7-17) mg/dL Creatinine 6.5 H (0.7-1.2) MG/DL Est GFR ( Amer) 9 Est GFR (Non-Af Amer) 7 Random Glucose 92 (65-105) mg/dL Calcium 9.2 (8.6-10.4) mg/dl Phosphorus 6.5 H (2.5-4.5) mg/dL Magnesium 2.5 H (1.6-2.3) mg/dL Total Bilirubin 0.8 (0.2-1.3) mg/dL AST 22 (14-36) U/L ALT 27 (9-52) U/L Alkaline Phosphatase 86 (38-126) U/L Total Protein 6.1 L (6.3-8.3) g/dL Albumin 3.3 L (3.5-5.0) g/dL Globulin 2.8 (2.2-3.9) gm/dL Albumin/Globulin Ratio 1.2 (1.0-2.1) Urine HCG, Qual Negative (NEGATIVE) ANCA Screen (NEGATIVE) Proteinase 3 (PR3) (<1.0) AI Myeloperoxidase Ab (<1.0) AI Scl-70 Scleroderma Ab (<1.0) AI Mycoplasma pneumon IgG (<=0.90) Mycoplasma pneumon IgM (<770) U/mL 11/08/16 11/08/16 Range/Units 12:04 09:45 WBC (4.8-10.8) K/uL RBC (3.80-5.20) Mil/uL Hgb (11.0-16.0) g/dL Hct (34.0-47.0) % MCV (81.0-99.0) fL MCH (27.0-31.0) pg MCHC (33.0-37.0) g/dL RDW (11.5-14.5) % Plt Count (130-400) K/uL MPV (7.2-11.7) fL Neut % (Auto) (50.0-75.0) % Lymph % (Auto) (20.0-40.0) % [place] % (Auto) (0.0-10.0) % Eos % (Auto) (0.0-4.0) % Baso % (Auto) (0.0-2.0) % Neut # (1.8-7.0) K/uL Lymph # (1.0-4.3) K/uL [place] # (0.0-0.8) K/uL Eos # (0.0-0.7) K/uL Baso # (0.0-0.2) K/uL Sodium (132-148) mmol/L Potassium (3.6-5.2) mmol/L Chloride (98-107) mmol/L Carbon Dioxide (22-30) mmol/L Anion Gap (10-20) BUN (7-17) mg/dL Creatinine (0.7-1.2) MG/DL Est GFR ( Amer) Est GFR (Non-Af Amer) Random Glucose (65-105) mg/dL Calcium (8.6-10.4) mg/dl Phosphorus (2.5-4.5) mg/dL Magnesium (1.6-2.3) mg/dL Total Bilirubin (0.2-1.3) mg/dL AST (14-36) U/L ALT (9-52) U/L Alkaline Phosphatase (38-126) U/L Total Protein (6.3-8.3) g/dL Albumin (3.5-5.0) g/dL Globulin (2.2-3.9) gm/dL Albumin/Globulin Ratio (1.0-2.1) Urine HCG, Qual (NEGATIVE) ANCA Screen Negative (NEGATIVE) Proteinase 3 (PR3) <1.0 (<1.0) AI Myeloperoxidase Ab <1.0 (<1.0) AI Scl-70 Scleroderma Ab <1.0 (<1.0) AI Mycoplasma pneumon IgG 2.45 H (<=0.90) Mycoplasma pneumon IgM 64 (<770) U/mL Laboratory Results - last 24 hr 11/08/16 11/08/16 11/12/16 09:45 12:04 06:27 WBC 11.3 H RBC 4.15 Hgb 9.6 L Hct 30.6 L MCV 73.8 L MCH 23.1 L MCHC 31.3 L RDW 22.6 H Plt Count 296 MPV 7.6 Neut % (Auto) 76.8 H Lymph % (Auto) 12.3 L [place] % (Auto) 4.7 Eos % (Auto) 5.6 H Baso % (Auto) 0.6 Neut # 8.7 H Lymph # 1.4 [place] # 0.5 Eos # 0.6 Baso # 0.1 Sodium Potassium Chloride Carbon Dioxide Anion Gap BUN Creatinine Est GFR ( Amer) Est GFR (Non-Af Amer) Random Glucose Calcium Phosphorus Magnesium Total Bilirubin AST ALT Alkaline Phosphatase Total Protein Albumin Globulin Albumin/Globulin Ratio Urine HCG, Qual ANCA Screen Negative Proteinase 3 (PR3) <1.0 Myeloperoxidase Ab <1.0 Scl-70 Scleroderma Ab <1.0 Mycoplasma pneumon IgG 2.45 H Mycoplasma pneumon IgM 64 11/12/16 11/12/16 06:27 10:01 WBC RBC Hgb Hct MCV MCH MCHC RDW Plt Count MPV Neut % (Auto) Lymph % (Auto) [place] % (Auto) Eos % (Auto) Baso % (Auto) Neut # Lymph # [place] # Eos # Baso # Sodium 133 Potassium 3.7 Chloride 94 L Carbon Dioxide 25 Anion Gap 18 BUN 41 H Creatinine 6.5 H Est GFR ( Amer) 9 Est GFR (Non-Af Amer) 7 Random Glucose 92 Calcium 9.2 Phosphorus 6.5 H Magnesium 2.5 H Total Bilirubin 0.8 AST 22 ALT 27 Alkaline Phosphatase 86 Total Protein 6.1 L Albumin 3.3 L Globulin 2.8 Albumin/Globulin Ratio 1.2 Urine HCG, Qual Negative ANCA Screen Proteinase 3 (PR3) Myeloperoxidase Ab Scl-70 Scleroderma Ab Mycoplasma pneumon IgG Mycoplasma pneumon IgM Critical Care Progress Note - Nutrition Nutrition: Nutrition Category Date Time Status Heart Healthy Diet [DIET] Diets 11/12/16 Lunch Active NPO Diet [DIET] Diets 11/13/16 Breakfast Active Assessment/Plan (1) CKD stage 5 secondary to hypertension Current Visit: Yes Status: Acute Comment: sstatus post hemodialysis x2 and transfusion of packed RBCs For permacath placement by surgery breathing much improved Possible pneumonia on antibiotics Seen by cardiology for elevated troponin and possible cardiac catheter when stable (2) Pneumonia Current Visit: Yes Status: Acute Attending/Attestation - Attestation I have personally seen and examined this patient.: Yes I have fully participated in the care of the patient.: Yes I have reviewed all pertinent clinical information: Yes Notes (Text): 11/12/16 17:21 patient seen and examined in the intensive care unit. Case discussed with house staff in the morning rounds. Getting hemodialysis For permacath placement tomorro antihypertensive adjusted for elevated blood pressure Psych eval
[2016-11-12 06:55] LABS: ALBUMIN 3.3 g/dL (3.5-5.0)
[2016-11-12 06:58] LABS: ALB/GLOB RATIO 1.2 (1.0-2.1)
[2016-11-12 06:59] LABS: CALCIUM 9.2 mg/dl (8.6-10.4); MAGNESIUM 2.5 mg/dL (1.6-2.3)
--- NOTE | 2016-11-12 09:00 | CP.PCM.PN ---
Subjective - Date & Time of Evaluation Date of Evaluation: 11/12/16 Time of Evaluation: 08:45 - Subjective Subjective: Patient seen and examined at bedside. No acute events overnight as per nursing. Patient's BP elevated this AM 191/113mmHg. Patient's primary complaint this AM was constant feelings of anxiety and swollen ankles bilaterally. Patient denies fever, chills, headache, dizziness, chest pain, palpitations, SOB, cough, abdominal pain, nausea, vomiting, bowel/bladder complaints, pain in her legs bilaterally. She has been NPO overnight for permacath placement this AM. Objective - Vital Signs/Intake and Output Vital Signs (last 24 hours): Temp Pulse Resp BP Pulse Ox 98.7 F 96 H 25 H 191/113 H 97 11/12/16 04:00 11/12/16 08:01 11/12/16 08:01 11/12/16 08:01 11/12/16 08:01 Intake and Output: 11/12/16 11/12/16 06:59 18:59 Intake Total 400 0 Output Total 200 Balance 200 0 - Medications Medications: Current Medications Amlodipine Besylate (Norvasc) 10 mg PO DAILY [facility] Last Admin: 11/12/16 08:14 Dose: 10 mg Aspirin (Ecotrin) 81 mg PO DAILY [facility] Last Admin: 11/11/16 09:05 Dose: 81 mg Epoetin Glenn (Procrit) 10,000 unit IV MWF [facility] Last Admin: 11/10/16 13:39 Dose: 10,000 unit Famotidine (Pepcid) 20 mg PO DAILY [facility] Last Admin: 11/11/16 09:05 Dose: 20 mg Heparin Sodium (Porcine) (Heparin) 5,000 units SC Q8 [facility] Last Admin: 11/12/16 05:00 Dose: 5,000 units Hydralazine HCl (Apresoline) 75 mg PO Q8 [facility] Last Admin: 11/12/16 05:20 Dose: 75 mg Piperacillin Sod/Tazobactam Sod (Zosyn 2.25 Gm Iv Premix) 2.25 gm in 50 mls @ 100 mls/hr IVPB Q8 [facility] Last Admin: 11/12/16 05:20 Dose: 100 mls/hr Labetalol HCl (Trandate) 100 mg PO TID [facility] Last Admin: 11/12/16 08:13 Dose: 100 mg Ondansetron HCl (Zofran Inj) 4 mg IVP Q8 PRN PRN Reason: Nausea/Vomiting Last Admin: 11/11/16 09:50 Dose: 4 mg - Labs Labs: 11/12/16 06:27 11/12/16 06:27 PT 11.2 SECONDS (9.7-12.2) 11/08/16 01:23 INR 1.0 11/08/16 01:23 APTT 39 SECONDS (21-34) H 11/10/16 06:48 - Constitutional Appears: No Acute Distress, Unkempt - Head Exam Head Exam: ATRAUMATIC, NORMAL INSPECTION, NORMOCEPHALIC - Eye Exam Eye Exam: EOMI, Normal appearance. absent: Conjunctival injection, Scleral icterus Pupil Exam: NORMAL ACCOMODATION - ENT Exam ENT Exam: Mucous Membranes Moist Additional comments: Nasal Cannula in place - Neck Exam Neck Exam: Full ROM - Respiratory Exam Respiratory Exam: Clear to Ausculation Bilateral, NORMAL BREATHING PATTERN. absent: Rales, Rhonchi, Wheezes - Cardiovascular Exam Cardiovascular Exam: REGULAR RHYTHM, +S1, +S2. absent: Murmur - GI/Abdominal Exam GI & Abdominal Exam: Soft, Normal Bowel Sounds. absent: Tenderness - Extremities Exam Extremities Exam: Normal Inspection. absent: Pedal Edema, Tenderness - Neurological Exam Neurological Exam: Alert, Awake, Oriented x3 - Psychiatric Exam Psychiatric exam: Anxious - Skin Skin Exam: Dry, Intact, Normal Color, Warm Assessment and Plan - Assessment and Plan (Free Text) Assessment: 36 F PMHx HTN admitted with acute heart failure, acute renal insufficiency, acute pulmonary edema, and severe hypokalemia Plan: Diastolic CHF -Echo 11/10 LV systolic ventricular function is normal; moderately increased wall thickness; Grade III reversible restrictive diastolic dysfunction; Moderately increased L atrial volume; moderate pulmonary HTN; L pleural effusion; LA pressure is elevated; consider restrictive cardiomyopathy -CXR 11/11: improved CHF and pulmonary edema -proBNP 47020 -BP continues to be elevated- likely secondary to CKD Patient for permacath placement this AM for HD -Norvasc 10mg po daily -Hydralazine 75mg po q8 -Increase Labetalol to 200mg po tid -ASA 81mg po daily
--- NOTE | 2016-11-12 10:35 | CP.PCM.PCO ---
Assessment & Plan - Assessment and Plan (Free Text) Assessment: Pt is a 36 yo f with recent NSTEMI, uncontrolled htn, pulmonary edema, pulm htn , and AMPARO requiring HD. Please document medical optimization prior to OR. Lee, you
[2016-11-12] MEDS ORDERED: Labetalol 25mg/5ml Syringe IVP STA (10:41)
--- NOTE | 2016-11-12 11:36 | PCM.PSYCH ---
Initial Psychiatric Evaluation - Initial Psychiatric Evaluation Type of Admission: Voluntary Legal Status: Capacity Chief Complaint (in patient's own words): "I'm very anxious" History of Present Illness and Precipitating Events: The patient is seen, chart reviewed and case discussed. This is a 36-year-old single female, no children, lives with her cousin and works in a [employer]. Consultation was requested because of her anxiety. She says she broke up with her fianc of 14 years, earlier this year and since then she had been somewhat depressed and very anxious. After her medical problems led her to ICU, she became even more anxious. She reports panic attacks , worrying a lot, tearfulness and feeling down. She says that she had never been the same since her mother in 2007 and the rest made it even worse. She denies suicidal thoughts but she says she had them rarely in the past. No manic or psychotic symptoms. No drug or alcohol use. Past psych history: No treatment and no suicide attempts. No psych admissions Medical history: Heart attack, hypertension and recent kidney damage per patient. Family psych history: Another cousin had schizophrenia Current Medications: Active Medications Generic Name Dose Route Start Last Admin Trade Name Freq PRN Reason Stop Dose Admin Amlodipine Besylate 10 mg 11/09/16 10:00 11/12/16 10:55 Norvasc PO Not Given DAILY ISABELLA Aspirin 81 mg 11/08/16 10:00 11/12/16 09:09 Ecotrin PO 81 mg DAILY ISABELLA Administration Epoetin Glenn 10,000 unit 11/10/16 10:45 11/10/16 13:39 Procrit IV 10,000 unit [facility] ISABELLA Administration Escitalopram Oxalate 5 mg 11/12/16 11:45 Lexapro PO DAILY ISABELLA Famotidine 20 mg 11/10/16 10:00 11/12/16 09:08 Pepcid PO 20 mg DAILY ISABELLA Administration Heparin Sodium (Porcine) 5,000 units 11/10/16 14:00 11/12/16 05:00 Heparin SC 5,000 units Q8 ISABELLA Administration Hydralazine HCl 75 mg 11/11/16 08:27 11/12/16 05:20 Apresoline PO 75 mg Q8 ISABELLA Administration Piperacillin Sod/Tazobactam Sod 2.25 gm in 50 mls @ 100 mls/hr 11/10/16 14:00 11/12/16 05:20 Zosyn 2.25 Gm Iv Premix IVPB 100 mls/hr Q8 ISABELLA Administration Labetalol HCl 100 mg 11/09/16 10:00 11/12/16 10:55 Trandate PO Not Given TID ISABELLA Nicotine 1 patch 11/12/16 11:00 Nicoderm Cq TD DAILY ISABELLA Ondansetron HCl 4 mg 11/08/16 11:13 11/11/16 09:50 Zofran Inj IVP 4 mg Q8 PRN Administration Nausea/Vomiting Past Psychiatric History - Past Psychiatric History Previous Treatment History: None Pertinent Medical Hx (Current Medical&Sleep Prob, Allergies): Allergies Allergy/AdvReac Type Severity Reaction Status Date / Time No Known Allergies Allergy Verified 11/08/16 00:53 Unknown Bp Med 11/08/16 Review of Systems - Psychiatric Psychiatric: Abnormal Sleep Pattern, Anhedonia, Anxiety, Depression, Difficulty Concentrating. absent: Hallucinations, Homicidal Ideation, Paranoia, Suicidal Ideation Mental Status Examination - Personal Presentation Personal Presentation: Looks stated age - Affect Affect: Constricted - Motor Activity Motor Activity: Calm - Reliability in Providing Information Reliability in Providing Information: Good - Speech Speech: Organized - Mood Mood: Depressed, Anxious - Formal Thought Process Formal Thought Process: No Impairment - Cognitive Functions Orientation: Person, Place, Situation, Time Sensorium: Alert Attention/Concentration: Easily distracted Estimate of Intelligence: Average Judgement: Intact, as evidence by: Insight regarding need for hospitalization Memory: Recent intact, as evidence by: Ability to recall events of the day, Remote intact, as evidenced by: Abilit to recall sig. life events - Risk Risk: Diminished functioning - Strength & Assets Inventory Strength & Assets Inventory: Family support, Cooperative DSM 5 DX - DSM 5 DSM 5 Diagnosis: Panic disorder without agoraphobia TINA Depressive disorder, unspecified - Recommended/Plan of Treatment Treatment Recommendations and Plan of Treatment: Lexapro for depression and anxiety Ativan for anxiety, as needed Support and psychoeducation CBT Will follow 32 minutes
[2016-11-12 13:04] LABS: ANCA SCREEN NEGATIVE (NEGATIVE)
--- NOTE | 2016-11-12 15:33 | CP.PCM.PN ---
Subjective - Date & Time of Evaluation Date of Evaluation: 11/12/16 Time of Evaluation: 14:30 - Subjective Subjective: on HD russ cancelled today due to htn discussed different modalities of dialysis, pt interested in PD being seen by Psych no chest pain anxious no sob no nausea no fever no dysuria no rash Objective - Vital Signs/Intake and Output Vital Signs (last 24 hours): Temp Pulse Resp BP Pulse Ox 98.5 F 88 19 174/100 H 99 11/12/16 14:30 11/12/16 15:15 11/12/16 15:15 11/12/16 15:15 11/12/16 15:15 Intake and Output: 11/12/16 11/12/16 06:59 18:59 Intake Total 400 250 Output Total 200 30 Balance 200 220 - Medications Medications: Current Medications Amlodipine Besylate (Norvasc) 10 mg PO DAILY [facility] Last Admin: 11/12/16 10:55 Dose: Not Given Aspirin (Ecotrin) 81 mg PO DAILY [facility] Last Admin: 11/12/16 09:09 Dose: 81 mg Epoetin Glenn (Procrit) 10,000 unit IV MWF [facility] Escitalopram Oxalate (Lexapro) 5 mg PO DAILY [facility] Last Admin: 11/12/16 12:43 Dose: 5 mg Famotidine (Pepcid) 20 mg PO DAILY [facility] Last Admin: 11/12/16 09:08 Dose: 20 mg Heparin Sodium (Porcine) (Heparin) 5,000 units SC Q8 [facility] Last Admin: 11/12/16 05:00 Dose: 5,000 units Hydralazine HCl (Apresoline) 75 mg PO Q8 [facility] Last Admin: 11/12/16 05:20 Dose: 75 mg Piperacillin Sod/Tazobactam Sod (Zosyn 2.25 Gm Iv Premix) 2.25 gm in 50 mls @ 100 mls/hr IVPB Q8 [facility] Last Admin: 11/12/16 05:20 Dose: 100 mls/hr Labetalol HCl (Trandate) 200 mg PO TID [facility] Lorazepam (Ativan) 0.5 mg PO Q6H PRN PRN Reason: Anxiety Nicotine (Nicoderm Cq) 1 patch TD DAILY [facility] Last Admin: 11/12/16 12:44 Dose: 1 patch Ondansetron HCl (Zofran Inj) 4 mg IVP Q8 PRN PRN Reason: Nausea/Vomiting Last Admin: 11/11/16 09:50 Dose: 4 mg - Labs Labs: 11/12/16 06:27 11/12/16 06:27 PT 11.2 SECONDS (9.7-12.2) 11/08/16 01:23 INR 1.0 11/08/16 01:23 APTT 39 SECONDS (21-34) H 11/10/16 06:48 - Constitutional Appears: No Acute Distress - Head Exam Head Exam: ATRAUMATIC - Eye Exam Eye Exam: EOMI, Normal appearance - ENT Exam ENT Exam: Mucous Membranes Moist - Neck Exam Neck Exam: Full ROM. absent: Lymphadenopathy - Respiratory Exam Respiratory Exam: Clear to Ausculation Bilateral. absent: Accessory Muscle Use - Cardiovascular Exam Cardiovascular Exam: REGULAR RHYTHM. absent: Rubs - GI/Abdominal Exam GI & Abdominal Exam: Soft. absent: Tenderness - Extremities Exam Extremities Exam: Full ROM - Neurological Exam Neurological Exam: Alert, Oriented x3 - Psychiatric Exam Psychiatric exam: Anxious Assessment and Plan - Assessment and Plan (Free Text) Assessment: surgery to assess for PD catheter psych to see placement in [facility] monitor bp
[2016-11-12] MEDS: EPOETIN ALFA 10,000 UNIT/ML ML IV SCH ×2 (15:43→19:38)
--- NOTE | 2016-11-12 16:13 | CP.PCM.PN ---
Subjective - Date & Time of Evaluation Date of Evaluation: 11/12/16 Time of Evaluation: 02:30 - Subjective Subjective: Surgery progress note for Dr. Dominguez Downs, PGY-1 Pt S & E at bedside. Pt reports some high blood pressure/agitation overnight due to anxiety. Denies N/V/F/C, SOB, CP, LAUREN, vision changes. Objective - Vital Signs/Intake and Output Vital Signs (last 24 hours): Temp Pulse Resp BP Pulse Ox 98.5 F 88 19 170/99 H 99 11/12/16 14:30 11/12/16 15:15 11/12/16 15:15 11/12/16 16:00 11/12/16 15:15 Intake and Output: 11/12/16 11/12/16 06:59 18:59 Intake Total 400 250 Output Total 200 30 Balance 200 220 - Medications Medications: Current Medications Amlodipine Besylate (Norvasc) 10 mg PO DAILY [facility] Last Admin: 11/12/16 10:55 Dose: Not Given Aspirin (Ecotrin) 81 mg PO DAILY [facility] Last Admin: 11/12/16 09:09 Dose: 81 mg Epoetin Glenn (Procrit) 10,000 unit IV MWF [facility] Last Admin: 11/12/16 15:43 Dose: 10,000 unit Escitalopram Oxalate (Lexapro) 5 mg PO DAILY [facility] Last Admin: 11/12/16 12:43 Dose: 5 mg Famotidine (Pepcid) 20 mg PO DAILY [facility] Last Admin: 11/12/16 09:08 Dose: 20 mg Heparin Sodium (Porcine) (Heparin) 5,000 units SC Q8 [facility] Last Admin: 11/12/16 05:00 Dose: 5,000 units Hydralazine HCl (Apresoline) 75 mg PO Q8 [facility] Last Admin: 11/12/16 15:42 Dose: 75 mg Piperacillin Sod/Tazobactam Sod (Zosyn 2.25 Gm Iv Premix) 2.25 gm in 50 mls @ 100 mls/hr IVPB Q8 [facility] Last Admin: 11/12/16 05:20 Dose: 100 mls/hr Labetalol HCl (Trandate) 200 mg PO TID [facility] Lorazepam (Ativan) 0.5 mg PO Q6H PRN PRN Reason: Anxiety Nicotine (Nicoderm Cq) 1 patch TD DAILY [facility] Last Admin: 11/12/16 12:44 Dose: 1 patch Ondansetron HCl (Zofran Inj) 4 mg IVP Q8 PRN PRN Reason: Nausea/Vomiting Last Admin: 11/11/16 09:50 Dose: 4 mg - Labs Labs: 11/12/16 06:27 11/12/16 06:27 PT 11.2 SECONDS (9.7-12.2) 11/08/16 01:23 INR 1.0 11/08/16 01:23 APTT 39 SECONDS (21-34) H 11/10/16 06:48 - Constitutional Appears: Non-toxic, No Acute Distress - Head Exam Head Exam: ATRAUMATIC, NORMAL INSPECTION, NORMOCEPHALIC - Eye Exam Eye Exam: EOMI, Normal appearance - ENT Exam ENT Exam: Mucous Membranes Moist, Normal Exam - Neck Exam Neck Exam: Full ROM, Normal Inspection - Respiratory Exam Respiratory Exam: Clear to Ausculation Bilateral, NORMAL BREATHING PATTERN - Cardiovascular Exam Cardiovascular Exam: REGULAR RHYTHM, +S1, +S2 - GI/Abdominal Exam GI & Abdominal Exam: Soft, Normal Bowel Sounds. absent: Tenderness - Extremities Exam Extremities Exam: Normal Inspection - Back Exam Back Exam: NORMAL INSPECTION - Neurological Exam Neurological Exam: Alert, Awake, CN II-XII Intact, Oriented x3 - Psychiatric Exam Psychiatric exam: Normal Affect, Normal Mood - Skin Skin Exam: Dry, Intact, Normal Color, Warm Assessment and Plan - Assessment and Plan (Free Text) Assessment: 36F w/ Acute on chronic kidney failure requiring HD, currently w/R femoral HD catheter. For OR tomorrow for permacath. Plan: -need for chronic dialysis -OR for permacath tomorrow -Consent in chart -BP control overnight -[facility] -FU vein mapping -L arm precautions DW attending Yareli, PGY-1
[2016-11-12 17:11] LABS: SCL-70 ANTIBODY <1.0 AI (<1.0)
[2016-11-13] MEDS: Piperacill/Tazo 2.25gm in Dex 2.25 GM/50 ML BAG IVPB SCH ×3 (06:15→21:46)
[2016-11-13 06:46] LABS: BASO # 0.1 K/uL (0.0-0.2); BASO % 1.1 % (0.0-2.0); EOS # 0.4 K/uL (0.0-0.7); EOS % 2.9 % (0.0-4.0); HEMOGLOBIN 9.9 g/dL (11.0-16.0); LYMPH # 1.8 K/uL (1.0-4.3); LYMPH % 13.5 % (20.0-40.0); MEAN CELL VOLUME 74.3 fL (81.0-99.0); MEAN CORPUSCULAR HEMOGLOBIN 23.1 pg (27.0-31.0); MEAN CORPUSCULAR HGB CONC 31.1 g/dL (33.0-37.0); MEAN PLATELET VOLUME 7.2 fL (7.2-11.7); MONO # 0.8 K/uL (0.0-0.8); MONO % 5.9 % (0.0-10.0); NEUT # 10.2 K/uL (1.8-7.0); NEUT % 76.6 % (50.0-75.0); NRBC % 0.1 % (0.0-2.0); RBC 4.28 Mil/uL (3.80-5.20); RED CELL DISTRIBUTION WIDTH 23.1 % (11.5-14.5); WHITE BLOOD COUNT 13.3 K/uL (4.8-10.8)
[2016-11-13 06:55] LABS: INR 1.1; PROTHROMBIN TIME 11.9 SECONDS (9.7-12.2)
[2016-11-13 07:03] LABS: ALBUMIN 3.2 g/dL (3.5-5.0)
[2016-11-13 07:06] LABS: ALB/GLOB RATIO 1.2 (1.0-2.1)
[2016-11-13 07:07] LABS: CALCIUM 8.6 mg/dl (8.6-10.4); MAGNESIUM 2.2 mg/dL (1.6-2.3)
--- NOTE | 2016-11-13 07:21 | CP.PCM.PN ---
Subjective - Date & Time of Evaluation Date of Evaluation: 11/13/16 Time of Evaluation: 07:30 - Subjective Subjective: Patient seen and examined at beside. She was tearful this morning. As per nursing, patient required 1 ativan overnight due to anxiety. Her blood pressure and HR continued to be elevated overnight; patient's regimen was changed to labetalol 200mg po tid yesterday and she received her first dose at 18:00 7/5. She was kept NPO overnight for permacath placement this AM. Patient denied acute complaints of headache, dizziness, chest pain, SOB, abdominal pain, bowel/ bladder complaints, pain in her legs b/l. She did complain of anxiety and depression. Objective - Vital Signs/Intake and Output Vital Signs (last 24 hours): Temp Pulse Resp BP Pulse Ox 98.7 F 100 H 27 H 168/88 H 99 11/13/16 04:00 11/13/16 06:02 11/13/16 06:02 11/13/16 06:02 11/13/16 06:02 Intake and Output: 11/13/16 11/13/16 06:59 18:59 Intake Total 630 Output Total 300 Balance 330 - Medications Medications: Current Medications Amlodipine Besylate (Norvasc) 10 mg PO DAILY [facility] Last Admin: 11/12/16 10:55 Dose: Not Given Aspirin (Ecotrin) 81 mg PO DAILY [facility] Last Admin: 11/12/16 09:09 Dose: 81 mg Epoetin Glenn (Procrit) 10,000 unit IV MWF [facility] Last Admin: 11/12/16 15:43 Dose: 10,000 unit Escitalopram Oxalate (Lexapro) 5 mg PO DAILY [facility] Last Admin: 11/12/16 12:43 Dose: 5 mg Famotidine (Pepcid) 20 mg PO DAILY [facility] Last Admin: 11/12/16 09:08 Dose: 20 mg Heparin Sodium (Porcine) (Heparin) 5,000 units SC Q8 [facility] Last Admin: 11/13/16 06:15 Dose: 5,000 units Hydralazine HCl (Apresoline) 75 mg PO Q8 [facility] Last Admin: 11/13/16 06:15 Dose: 75 mg Piperacillin Sod/Tazobactam Sod (Zosyn 2.25 Gm Iv Premix) 2.25 gm in 50 mls @ 100 mls/hr IVPB Q8 [facility] Last Admin: 11/13/16 06:15 Dose: 100 mls/hr Labetalol HCl (Trandate) 200 mg PO TID [facility] Last Admin: 11/12/16 21:00 Dose: 200 mg Lorazepam (Ativan) 0.5 mg PO Q6H PRN PRN Reason: Anxiety Last Admin: 11/12/16 22:45 Dose: 0.5 mg Nicotine (Nicoderm Cq) 1 patch TD DAILY [facility] Last Admin: 11/12/16 12:44 Dose: 1 patch Ondansetron HCl (Zofran Inj) 4 mg IVP Q8 PRN PRN Reason: Nausea/Vomiting Last Admin: 11/11/16 09:50 Dose: 4 mg - Labs Labs: 11/13/16 06:34 11/13/16 06:34 PT 11.9 SECONDS (9.7-12.2) 11/13/16 06:34 INR 1.1 11/13/16 06:34 APTT 27 SECONDS (21-34) D 11/13/16 06:34 - Constitutional Appears: No Acute Distress, Unkempt, Other (tearful) - Head Exam Head Exam: ATRAUMATIC, NORMAL INSPECTION, NORMOCEPHALIC - Eye Exam Eye Exam: EOMI, Normal appearance, PERRL. absent: Conjunctival injection, Scleral icterus Pupil Exam: NORMAL ACCOMODATION - ENT Exam ENT Exam: Mucous Membranes Moist - Neck Exam Neck Exam: Full ROM, Normal Inspection. absent: Tenderness - Respiratory Exam Respiratory Exam: Clear to Ausculation Bilateral, NORMAL BREATHING PATTERN. absent: Accessory Muscle Use, Rales, Rhonchi, Wheezes - Cardiovascular Exam Cardiovascular Exam: Tachycardia, REGULAR RHYTHM, +S1, +S2 - GI/Abdominal Exam GI & Abdominal Exam: Soft, Normal Bowel Sounds. absent: Tenderness - Extremities Exam Extremities Exam: Normal Inspection - Neurological Exam Neurological Exam: Alert, Awake, Oriented x3 - Psychiatric Exam Psychiatric exam: Anxious, Depressed - Skin Skin Exam: Dry, Intact, Normal Color, Warm Assessment and Plan - Assessment and Plan (Free Text) Assessment: 36 F PMHx HTN admitted with acute heart failure, acute renal insufficiency, acute pulmonary edema, and severe hypokalemia Plan: Diastolic CHF -BP continues to be elevated- likely secondary to CKD Patient for permacath placement this AM 11/13 for HD -Echo 11/10 LV systolic ventricular function is normal; moderately increased wall thickness; Grade III reversible restrictive diastolic dysfunction; Moderately increased L atrial volume; moderate pulmonary HTN; L pleural effusion; LA pressure is elevated; consider restrictive cardiomyopathy -CXR 11/11: improved CHF and pulmonary edema -proBNP [id number] on admission -Norvasc 10mg po daily -Hydralazine 75mg po q8 -Labetalol 200mg po tid -ASA 81mg po daily -In lieu of normal EF, improving CHF, normal sinus on EKG and no chest pain, the benefits outweigh the risks and patient can proceed with peritoneal dialysis catheter insertion under general anesthesia.
--- NOTE | 2016-11-13 09:18 | CP.CCUPN ---
<SotoCandace crespo - Last Filed: 11/13/16 17:14> CCU Subjective - Physician Review Subjective (Free Text): Patient was examined at bedside in the AM. Patient stated she was feeling very anxious around 7am this morning. Patient stated that today she felt like jumping out the window again. Patient stated she has a headache that is subsiding with the Tylenol. Patient stated that this morning saw a streaking light in her right eye that comes and goes but no other changes in her vision. Patient denies shortness of breath, chest pain, nausea, vomiting, diarrhea, constipation, or dysuria. Patient stated she has a good family support system as her brother, sister and cousin continue to visit the patient. 11/13/16 11:50 CCU Objective - Vital Signs / Intake & Output Vital Signs (Last 4 hours): Vital Signs Temp Pulse Resp BP Pulse Ox 11/13/16 09:02 106 H 16 198/117 H 100 11/13/16 08:02 98 H 14 166/88 H 99 11/13/16 08:00 98.4 F 98 H 14 99 11/13/16 07:02 98 H 25 H 170/95 H 98 11/13/16 06:02 100 H 27 H 168/88 H 99 Intake and Output (Last 8hrs): Intake & Output 11/12/16 11/13/16 11/13/16 22:59 06:59 14:59 Intake Total 560 170 0 Output Total 650 Balance 560 -480 0 Intake: Intake, IV Amount 100 50 Right Antecubital 100 50 Oral 460 120 0 Output: Urine 350 Urine, Voided 350 Urine/Stool Mix 300 Other: # Voids Urine, Voided 1 1 # Bowel Movements 1 1 - Physical Exam Head: Positive for: Atraumatic, Normocephalic Extroacular Muscles: Positive for: EOMI Mouth: Positive for: Moist Mucous Membranes Neck: Positive for: Normal Range of Motion Respiratory/Chest: Positive for: Clear to Auscultation, Good Air Exchange. Negative for: Respiratory Distress, Accessory Muscle Use Cardiovascular: Positive for: Regular Rate and Rhythm, Normal S1, S2. Negative for: Murmurs Abdomen: Positive for: Normal Bowel Sounds. Negative for: Tenderness, Distention, Guarding Upper Extremity: Positive for: Normal Inspection. Negative for: Edema, Swelling Lower Extremity: Positive for: Normal Inspection. Negative for: Edema, CALF TENDERNESS Psychiatric: Positive for: Alert, Oriented x 3, Anxious, Suicidal Ideation - Medications Active Medications: Active Medications Generic Name Dose Route Start Last Admin Trade Name Freq PRN Reason Stop Dose Admin Amlodipine Besylate 10 mg 11/09/16 10:00 11/12/16 10:55 Norvasc PO Not Given DAILY ISABELLA Aspirin 81 mg 11/08/16 10:00 11/12/16 09:09 Ecotrin PO 81 mg DAILY ISABELLA Administration Epoetin Glenn 10,000 unit 11/12/16 15:00 11/12/16 15:43 Procrit IV 10,000 unit MWF ISABELLA Administration Escitalopram Oxalate 5 mg 11/12/16 12:30 11/12/16 12:43 Lexapro PO 5 mg DAILY ISABELLA Administration Famotidine 20 mg 11/10/16 10:00 11/12/16 09:08 Pepcid PO 20 mg DAILY ISABELLA Administration Heparin Sodium (Porcine) 5,000 units 11/10/16 14:00 11/13/16 06:15 Heparin SC 5,000 units Q8 ISABELLA Administration Hydralazine HCl 75 mg 11/11/16 08:27 11/13/16 06:15 Apresoline PO 75 mg Q8 ISABELLA Administration Piperacillin Sod/Tazobactam Sod 2.25 gm in 50 mls @ 100 mls/hr 11/10/16 14:00 11/13/16 06:15 Zosyn 2.25 Gm Iv Premix IVPB 100 mls/hr Q8 ISABELLA Administration Labetalol HCl 200 mg 11/12/16 18:00 11/12/16 21:00 Trandate PO 200 mg TID ISABELLA Administration Lorazepam 0.5 mg 11/12/16 11:35 11/13/16 07:40 Ativan PO 0.5 mg Q6H PRN Administration Anxiety Nicotine 1 patch 11/12/16 11:00 11/12/16 12:44 Nicoderm Cq TD 1 patch DAILY ISABELLA Administration Ondansetron HCl 4 mg 11/08/16 11:13 11/11/16 09:50 Zofran Inj IVP 4 mg Q8 PRN Administration Nausea/Vomiting - Patient Studies Lab Studies: Lab Studies 11/13/16 11/13/16 11/13/16 Range/Units 06:34 06:34 06:34 WBC 13.3 H (4.8-10.8) K/uL RBC 4.28 (3.80-5.20) Mil/uL Hgb 9.9 L (11.0-16.0) g/dL Hct 31.8 L (34.0-47.0) % MCV 74.3 L (81.0-99.0) fL MCH 23.1 L (27.0-31.0) pg MCHC 31.1 L (33.0-37.0) g/dL RDW 23.1 H (11.5-14.5) % Plt Count 326 (130-400) K/uL MPV 7.2 (7.2-11.7) fL Neut % (Auto) 76.6 H (50.0-75.0) % Lymph % (Auto) 13.5 L (20.0-40.0) % Talbot % (Auto) 5.9 (0.0-10.0) % Eos % (Auto) 2.9 (0.0-4.0) % Baso % (Auto) 1.1 (0.0-2.0) % Neut # 10.2 H (1.8-7.0) K/uL Lymph # 1.8 (1.0-4.3) K/uL Talbot # 0.8 (0.0-0.8) K/uL Eos # 0.4 (0.0-0.7) K/uL Baso # 0.1 (0.0-0.2) K/uL PT 11.9 (9.7-12.2) SECONDS INR 1.1 APTT 27 D (21-34) SECONDS Sodium 132 (132-148) mmol/L Potassium 3.9 (3.6-5.2) mmol/L Chloride 94 L (98-107) mmol/L Carbon Dioxide 26 (22-30) mmol/L Anion Gap 16 (10-20) BUN 27 H (7-17) mg/dL Creatinine 4.4 H (0.7-1.2) MG/DL Est GFR ( Amer) 14 Est GFR (Non-Af Amer) 11 Random Glucose 92 (65-105) mg/dL Calcium 8.6 (8.6-10.4) mg/dl Phosphorus 4.6 H (2.5-4.5) mg/dL Magnesium 2.2 (1.6-2.3) mg/dL Total Bilirubin 0.8 (0.2-1.3) mg/dL AST 19 (14-36) U/L ALT 20 (9-52) U/L Alkaline Phosphatase 69 (38-126) U/L Total Protein 5.9 L (6.3-8.3) g/dL Albumin 3.2 L (3.5-5.0) g/dL Globulin 2.7 (2.2-3.9) gm/dL Albumin/Globulin Ratio 1.2 (1.0-2.1) Procalcitonin (0.19-0.49) NG/ML Urine HCG, Qual (NEGATIVE) ANCA Screen (NEGATIVE) Proteinase 3 (PR3) (<1.0) AI Myeloperoxidase Ab (<1.0) AI Scl-70 Scleroderma Ab (<1.0) AI C. difficile Ag & Toxin (NEGATIVE) 11/12/16 11/12/16 11/12/16 Range/Units 10:03 10:01 09:35 WBC (4.8-10.8) K/uL RBC (3.80-5.20) Mil/uL Hgb (11.0-16.0) g/dL Hct (34.0-47.0) % MCV (81.0-99.0) fL MCH (27.0-31.0) pg MCHC (33.0-37.0) g/dL RDW (11.5-14.5) % Plt Count (130-400) K/uL MPV (7.2-11.7) fL Neut % (Auto) (50.0-75.0) % Lymph % (Auto) (20.0-40.0) % Talbot % (Auto) (0.0-10.0) % Eos % (Auto) (0.0-4.0) % Baso % (Auto) (0.0-2.0) % Neut # (1.8-7.0) K/uL Lymph # (1.0-4.3) K/uL Talbot # (0.0-0.8) K/uL Eos # (0.0-0.7) K/uL Baso # (0.0-0.2) K/uL PT (9.7-12.2) SECONDS INR APTT (21-34) SECONDS Sodium (132-148) mmol/L Potassium (3.6-5.2) mmol/L Chloride (98-107) mmol/L Carbon Dioxide (22-30) mmol/L Anion Gap (10-20) BUN (7-17) mg/dL Creatinine (0.7-1.2) MG/DL Est GFR ( Amer) Est GFR (Non-Af Amer) Random Glucose (65-105) mg/dL Calcium (8.6-10.4) mg/dl Phosphorus (2.5-4.5) mg/dL Magnesium (1.6-2.3) mg/dL Total Bilirubin (0.2-1.3) mg/dL AST (14-36) U/L ALT (9-52) U/L Alkaline Phosphatase (38-126) U/L Total Protein (6.3-8.3) g/dL Albumin (3.5-5.0) g/dL Globulin (2.2-3.9) gm/dL Albumin/Globulin Ratio (1.0-2.1) Procalcitonin 0.49 (0.19-0.49) NG/ML Urine HCG, Qual Negative (NEGATIVE) ANCA Screen (NEGATIVE) Proteinase 3 (PR3) (<1.0) AI Myeloperoxidase Ab (<1.0) AI Scl-70 Scleroderma Ab (<1.0) AI C. difficile Ag & Toxin Negative (NEGATIVE) 11/08/16 Range/Units 12:04 WBC (4.8-10.8) K/uL RBC (3.80-5.20) Mil/uL Hgb (11.0-16.0) g/dL Hct (34.0-47.0) % MCV (81.0-99.0) fL MCH (27.0-31.0) pg MCHC (33.0-37.0) g/dL RDW (11.5-14.5) % Plt Count (130-400) K/uL MPV (7.2-11.7) fL Neut % (Auto) (50.0-75.0) % Lymph % (Auto) (20.0-40.0) % Talbot % (Auto) (0.0-10.0) % Eos % (Auto) (0.0-4.0) % Baso % (Auto) (0.0-2.0) % Neut # (1.8-7.0) K/uL Lymph # (1.0-4.3) K/uL Talbot # (0.0-0.8) K/uL Eos # (0.0-0.7) K/uL Baso # (0.0-0.2) K/uL PT (9.7-12.2) SECONDS INR APTT (21-34) SECONDS Sodium (132-148) mmol/L Potassium (3.6-5.2) mmol/L Chloride (98-107) mmol/L Carbon Dioxide (22-30) mmol/L Anion Gap (10-20) BUN (7-17) mg/dL Creatinine (0.7-1.2) MG/DL Est GFR ( Amer) Est GFR (Non-Af Amer) Random Glucose (65-105) mg/dL Calcium (8.6-10.4) mg/dl Phosphorus (2.5-4.5) mg/dL Magnesium (1.6-2.3) mg/dL Total Bilirubin (0.2-1.3) mg/dL AST (14-36) U/L ALT (9-52) U/L Alkaline Phosphatase (38-126) U/L Total Protein (6.3-8.3) g/dL Albumin (3.5-5.0) g/dL Globulin (2.2-3.9) gm/dL Albumin/Globulin Ratio (1.0-2.1) Procalcitonin (0.19-0.49) NG/ML Urine HCG, Qual (NEGATIVE) ANCA Screen Negative (NEGATIVE) Proteinase 3 (PR3) <1.0 (<1.0) AI Myeloperoxidase Ab <1.0 (<1.0) AI Scl-70 Scleroderma Ab <1.0 (<1.0) AI C. difficile Ag & Toxin (NEGATIVE) Laboratory Results - last 24 hr 11/08/16 11/12/16 11/12/16 12:04 09:35 10:01 WBC RBC Hgb Hct MCV MCH MCHC RDW Plt Count MPV Neut % (Auto) Lymph % (Auto) Talbot % (Auto) Eos % (Auto) Baso % (Auto) Neut # Lymph # Talbot # Eos # Baso # PT INR APTT Sodium Potassium Chloride Carbon Dioxide Anion Gap BUN Creatinine Est GFR ( Amer) Est GFR (Non-Af Amer) Random Glucose Calcium Phosphorus Magnesium Total Bilirubin AST ALT Alkaline Phosphatase Total Protein Albumin Globulin Albumin/Globulin Ratio Procalcitonin Urine HCG, Qual Negative ANCA Screen Negative Proteinase 3 (PR3) <1.0 Myeloperoxidase Ab <1.0 Scl-70 Scleroderma Ab <1.0 C. difficile Ag & Toxin Negative 11/12/16 11/13/16 11/13/16 10:03 06:34 06:34 WBC 13.3 H RBC 4.28 Hgb 9.9 L Hct 31.8 L MCV 74.3 L MCH 23.1 L MCHC 31.1 L RDW 23.1 H Plt Count 326 MPV 7.2 Neut % (Auto) 76.6 H Lymph % (Auto) 13.5 L Talbot % (Auto) 5.9 Eos % (Auto) 2.9 Baso % (Auto) 1.1 Neut # 10.2 H Lymph # 1.8 Talbot # 0.8 Eos # 0.4 Baso # 0.1 PT INR APTT Sodium 132 Potassium 3.9 Chloride 94 L Carbon Dioxide 26 Anion Gap 16 BUN 27 H Creatinine 4.4 H Est GFR ( Amer) 14 Est GFR (Non-Af Amer) 11 Random Glucose 92 Calcium 8.6 Phosphorus 4.6 H Magnesium 2.2 Total Bilirubin 0.8 AST 19 ALT 20 Alkaline Phosphatase 69 Total Protein 5.9 L Albumin 3.2 L Globulin 2.7 Albumin/Globulin Ratio 1.2 Procalcitonin 0.49 Urine HCG, Qual ANCA Screen Proteinase 3 (PR3) Myeloperoxidase Ab Scl-70 Scleroderma Ab C. difficile Ag & Toxin 11/13/16 06:34 WBC RBC Hgb Hct MCV MCH MCHC RDW Plt Count MPV Neut % (Auto) Lymph % (Auto) Talbot % (Auto) Eos % (Auto) Baso % (Auto) Neut # Lymph # Talbot # Eos # Baso # PT 11.9 INR 1.1 APTT 27 D Sodium Potassium Chloride Carbon Dioxide Anion Gap BUN Creatinine Est GFR ( Amer) Est GFR (Non-Af Amer) Random Glucose Calcium Phosphorus Magnesium Total Bilirubin AST ALT Alkaline Phosphatase Total Protein Albumin Globulin Albumin/Globulin Ratio Procalcitonin Urine HCG, Qual ANCA Screen Proteinase 3 (PR3) Myeloperoxidase Ab Scl-70 Scleroderma Ab C. difficile Ag & Toxin Review of Systems - Constitutional Constitutional: absent: Fever - EENT Eyes: Sees Flashes (per patient sees streaks of light in her right eye that comes and goes) - Cardiovascular Cardiovascular: absent: Chest Pain, Dyspnea, Lightheadedness, Palpitations - Respiratory Respiratory: absent: Cough, Dyspnea - Gastrointestinal Gastrointestinal: absent: Abdominal Pain, Constipation, Diarrhea - Genitourinary Genitourinary: absent: Dysuria - Neurological Neurological: Headaches. absent: Dizziness - Psychiatric Psychiatric: Anxiety, Suicidal Ideation Critical Care Progress Note - Nutrition Nutrition: Nutrition Category Date Time Status NPO Diet [DIET] Diets 11/13/16 Breakfast Active Assessment/Plan - Assessment and Plan (Free Text) Assessment: 36 year old female presents to the ED with complaints of left sided chest pain and SOB for three days and associated with non-productive cough. Plan: Neuro: - Alert and oriented 3 - Anxious Pulm: - Chest X-ray (11/11/16): Slightly improved pulmonary edemal CHF - Chest X-ray (11/13/16): Interval placement of right sided dialysis catheter with distal tips at the distal SVC/cav oatrial junction. - Nicotine Patch 14mg/24hr daily CV: - Cardiology Consult: Dr. Carvajal --> help appreciated - Aspirin 81mg PO daily - Amlodipine 10mg PO daily - Hydralazine 75mg PO Q8 - Labetalol 300mg PO TID - ECHO (11/09/16): The left systolic ventricular function is normal. There is moderately increased wall thickness. Transmitral doppler flow pattern is Grade III-reversible restrictive diastolic dysfunction. Moderately increased left atrial volume. Moderate pulmonary HTN. Left pleural effusion. Left atrial pressure is elevated. 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 Heme: - H/H: 9.9/31.8 - PT/INR: 11.9/1.1 Renal: - Renal Failure - Fistula Permacath performed 11/13/16 - Surgery Consult: Dr. Burgos --> help appreciated - BUN/Cr (11/13): 27/4.4; BUN/Cr (11/12/16): 41/6.5; BUN/Cr (11/11/16): 37/5.3 - Monitor I/O - Urine HCG: Negative - Urine Catch: multiple species, propbable contamination - Nephrology Consult: Dr. Jordan --> help appreciated - f/u Aldosterone - f/u Metanephrines - f/u Plamsa Renin - Epoetin Glenn 10,000 unit IV MWF - Renal Ultrasound (11/08/16): Medical renal disease. No hydronephrosis or nephrolithiasis Endo: - f/u SCL-70 antibody - f/u ANCA GI: - Pepcid 20mg PO daily - C. Diff: negative ID: - Urine Catch: multiple species, propbable contamination - Naris: MRSA not detected - Blood culture (11/08/16): No growth - Zosyn 2.25gm in 50mls @100mls/hr IVPB (Started on 11/10/16) - Procalcitonin: 0.49 - f/u HIV antibody - f/u M. Pneumoniae AB (IgG) - C. Diff: negative - f/u anti streptolysin Psychiatry: - Psychiatry Consult: Dr. Mckeon --> help appreciated - Suicidal Ideation - Anxious - Escitalopram 5mg PO daily - Lorazepam 0.5mg PO q6h prn DVT proph - SCDs GI proph - Pepcid 20mg PO daily Gilbert for strict I/O's during acute illness Code status - full code Case discussed with Dr. Beba Soto PGY-1 <Darron Yoder - Last Filed: 11/13/16 17:45> CCU Objective - Vital Signs / Intake & Output Vital Signs (Last 4 hours): Vital Signs Temp Pulse Resp BP Pulse Ox 11/13/16 17:00 74 19 136/81 96 11/13/16 16:00 98.5 F 76 18 135/81 97 11/13/16 15:30 91 H 20 162/117 H 99 11/13/16 14:45 93 H 19 162/116 H 97 11/13/16 14:15 93 H 18 167/117 H 96 11/13/16 14:00 98 F 91 H 19 171/118 H 97 Intake and Output (Last 8hrs): Intake & Output 11/13/16 11/13/16 11/13/16 06:59 14:59 22:59 Intake Total 170 100 50 Output Total 650 200 Balance -480 -100 50 Intake: Intake, IV Amount 50 50 Right Antecubital 50 50 Oral 120 50 50 Output: Urine 350 200 Urine, Voided 350 200 Urine/Stool Mix 300 Other: # Voids Urine, Voided 1 # Bowel Movements 1 - Medications Active Medications: Active Medications Generic Name Dose Route Start Last Admin Trade Name Freq PRN Reason Stop Dose Admin Amlodipine Besylate 10 mg 11/09/16 10:00 11/13/16 09:18 Norvasc PO 10 mg DAILY ISABELLA Administration Aspirin 81 mg 11/08/16 10:00 11/13/16 15:07 Ecotrin PO 81 mg DAILY ISABELLA Administration Epoetin Glenn 10,000 unit 11/12/16 15:00 11/12/16 15:43 Procrit IV 10,000 unit MWF ISABELLA Administration Escitalopram Oxalate 5 mg 11/12/16 12:30 11/13/16 14:46 Lexapro PO 5 mg DAILY ISABELLA Administration Famotidine 20 mg 11/10/16 10:00 11/13/16 15:13 Pepcid PO 20 mg DAILY ISABELLA Administration Heparin Sodium (Porcine) 5,000 units 11/10/16 14:00 11/13/16 06:15 Heparin SC 5,000 units Q8 ISABELLA Administration Hydralazine HCl 75 mg 11/11/16 08:27 11/13/16 14:47 Apresoline PO 75 mg Q8 ISABELLA Administration Hydromorphone HCl 0.5 mg 11/13/16 13:18 Dilaudid IVP Q15M PRN Pain, severe (8-10) Piperacillin Sod/Tazobactam Sod 2.25 gm in 50 mls @ 100 mls/hr 11/10/16 14:00 11/13/16 14:28 Zosyn 2.25 Gm Iv Premix IVPB 100 mls/hr Q8 ISABELLA Administration Ibuprofen 600 mg 11/13/16 14:40 Motrin Tab PO TID PRN Pain, moderate (4-7) Labetalol HCl 300 mg 11/13/16 14:00 11/13/16 15:03 Normodyne PO 300 mg TID ISABELLA Administration Lorazepam 0.5 mg 11/12/16 11:35 11/13/16 07:40 Ativan PO 0.5 mg Q6H PRN Administration Anxiety Nicotine 1 patch 11/12/16 11:00 11/13/16 10:23 Nicoderm Cq TD 1 patch DAILY ISABELLA Administration Ondansetron HCl 4 mg 11/08/16 11:13 11/13/16 16:00 Zofran Inj IVP 4 mg Q8 PRN Administration Nausea/Vomiting - Patient Studies Lab Studies: Lab Studies 11/13/16 11/13/16 11/13/16 Range/Units 06:34 06:34 06:34 WBC 13.3 H (4.8-10.8) K/uL RBC 4.28 (3.80-5.20) Mil/uL Hgb 9.9 L (11.0-16.0) g/dL Hct 31.8 L (34.0-47.0) % MCV 74.3 L (81.0-99.0) fL MCH 23.1 L (27.0-31.0) pg MCHC 31.1 L (33.0-37.0) g/dL RDW 23.1 H (11.5-14.5) % Plt Count 326 (130-400) K/uL MPV 7.2 (7.2-11.7) fL Neut % (Auto) 76.6 H (50.0-75.0) % Lymph % (Auto) 13.5 L (20.0-40.0) % Talbot % (Auto) 5.9 (0.0-10.0) % Eos % (Auto) 2.9 (0.0-4.0) % Baso % (Auto) 1.1 (0.0-2.0) % Neut # 10.2 H (1.8-7.0) K/uL Lymph # 1.8 (1.0-4.3) K/uL Talbot # 0.8 (0.0-0.8) K/uL Eos # 0.4 (0.0-0.7) K/uL Baso # 0.1 (0.0-0.2) K/uL PT 11.9 (9.7-12.2) SECONDS INR 1.1 APTT 27 D (21-34) SECONDS Sodium 132 (132-148) mmol/L Potassium 3.9 (3.6-5.2) mmol/L Chloride 94 L (98-107) mmol/L Carbon Dioxide 26 (22-30) mmol/L Anion Gap 16 (10-20) BUN 27 H (7-17) mg/dL Creatinine 4.4 H (0.7-1.2) MG/DL Est GFR ( Amer) 14 Est GFR (Non-Af Amer) 11 Random Glucose 92 (65-105) mg/dL Calcium 8.6 (8.6-10.4) mg/dl Phosphorus 4.6 H (2.5-4.5) mg/dL Magnesium 2.2 (1.6-2.3) mg/dL Total Bilirubin 0.8 (0.2-1.3) mg/dL AST 19 (14-36) U/L ALT 20 (9-52) U/L Alkaline Phosphatase 69 (38-126) U/L Total Protein 5.9 L (6.3-8.3) g/dL Albumin 3.2 L (3.5-5.0) g/dL Globulin 2.7 (2.2-3.9) gm/dL Albumin/Globulin Ratio 1.2 (1.0-2.1) Procalcitonin (0.19-0.49) NG/ML C. difficile Ag & Toxin (NEGATIVE) 11/12/16 11/12/16 Range/Units 10:03 09:35 WBC (4.8-10.8) K/uL RBC (3.80-5.20) Mil/uL Hgb (11.0-16.0) g/dL Hct (34.0-47.0) % MCV (81.0-99.0) fL MCH (27.0-31.0) pg MCHC (33.0-37.0) g/dL RDW (11.5-14.5) % Plt Count (130-400) K/uL MPV (7.2-11.7) fL Neut % (Auto) (50.0-75.0) % Lymph % (Auto) (20.0-40.0) % Talbot % (Auto) (0.0-10.0) % Eos % (Auto) (0.0-4.0) % Baso % (Auto) (0.0-2.0) % Neut # (1.8-7.0) K/uL Lymph # (1.0-4.3) K/uL Talbot # (0.0-0.8) K/uL Eos # (0.0-0.7) K/uL Baso # (0.0-0.2) K/uL PT (9.7-12.2) SECONDS INR APTT (21-34) SECONDS Sodium (132-148) mmol/L Potassium (3.6-5.2) mmol/L Chloride (98-107) mmol/L Carbon Dioxide (22-30) mmol/L Anion Gap (10-20) BUN (7-17) mg/dL Creatinine (0.7-1.2) MG/DL Est GFR ( Amer) Est GFR (Non-Af Amer) Random Glucose (65-105) mg/dL Calcium (8.6-10.4) mg/dl Phosphorus (2.5-4.5) mg/dL Magnesium (1.6-2.3) mg/dL Total Bilirubin (0.2-1.3) mg/dL AST (14-36) U/L ALT (9-52) U/L Alkaline Phosphatase (38-126) U/L Total Protein (6.3-8.3) g/dL Albumin (3.5-5.0) g/dL Globulin (2.2-3.9) gm/dL Albumin/Globulin Ratio (1.0-2.1) Procalcitonin 0.49 (0.19-0.49) NG/ML C. difficile Ag & Toxin Negative (NEGATIVE) Laboratory Results - last 24 hr 11/12/16 11/12/16 11/13/16 09:35 10:03 06:34 WBC 13.3 H RBC 4.28 Hgb 9.9 L Hct 31.8 L MCV 74.3 L MCH 23.1 L MCHC 31.1 L RDW 23.1 H Plt Count 326 MPV 7.2 Neut % (Auto) 76.6 H Lymph % (Auto) 13.5 L Talbot % (Auto) 5.9 Eos % (Auto) 2.9 Baso % (Auto) 1.1 Neut # 10.2 H Lymph # 1.8 Talbot # 0.8 Eos # 0.4 Baso # 0.1 PT INR APTT Sodium Potassium Chloride Carbon Dioxide Anion Gap BUN Creatinine Est GFR ( Amer) Est GFR (Non-Af Amer) Random Glucose Calcium Phosphorus Magnesium Total Bilirubin AST ALT Alkaline Phosphatase Total Protein Albumin Globulin Albumin/Globulin Ratio Procalcitonin 0.49 C. difficile Ag & Toxin Negative 11/13/16 11/13/16 06:34 06:34 WBC RBC Hgb Hct MCV MCH MCHC RDW Plt Count MPV Neut % (Auto) Lymph % (Auto) Talbot % (Auto) Eos % (Auto) Baso % (Auto) Neut # Lymph # Talbot # Eos # Baso # PT 11.9 INR 1.1 APTT 27 D Sodium 132 Potassium 3.9 Chloride 94 L Carbon Dioxide 26 Anion Gap 16 BUN 27 H Creatinine 4.4 H Est GFR ( Amer) 14 Est GFR (Non-Af Amer) 11 Random Glucose 92 Calcium 8.6 Phosphorus 4.6 H Magnesium 2.2 Total Bilirubin 0.8 AST 19 ALT 20 Alkaline Phosphatase 69 Total Protein 5.9 L Albumin 3.2 L Globulin 2.7 Albumin/Globulin Ratio 1.2 Procalcitonin C. difficile Ag & Toxin Critical Care Progress Note - Nutrition Nutrition: Nutrition Category Date Time Status Heart Healthy Diet [DIET] Diets 11/13/16 Dinner Active Attending/Attestation - Attestation I have personally seen and examined this patient.: Yes I have fully participated in the care of the patient.: Yes I have reviewed all pertinent clinical information: Yes Notes (Text): 11/13/16 17:45 Today: , November 13, 2016 The Patient was seen and examined at the bedside, Medical records reviewed, all clinical/lab/hemodynamic/radiographic data were reviewed and management issues were discussed and formulated, Events reviewed Pain issues, skin care, head of the bed elevation, glycemic control were addressed. Agree with above treatment plans as transcribed in Dr. Soto note
--- NOTE | 2016-11-13 09:27 | CP.PCM.PN ---
Subjective - Date & Time of Evaluation Date of Evaluation: 11/13/16 Time of Evaluation: 09:24 - Subjective Subjective: HTN difficult to control Stable dialysis 11/12 Possible PD being considered- would need PD cath Not dyspneic Has been anxious Objective - Vital Signs/Intake and Output Vital Signs (last 24 hours): Temp Pulse Resp BP Pulse Ox 98.4 F 106 H 16 198/117 H 100 11/13/16 08:00 11/13/16 09:02 11/13/16 09:02 11/13/16 09:02 11/13/16 09:02 Intake and Output: 11/13/16 11/13/16 06:59 18:59 Intake Total 630 0 Output Total 650 Balance -20 0 - Medications Medications: Current Medications Amlodipine Besylate (Norvasc) 10 mg PO DAILY [facility] Last Admin: 11/13/16 09:18 Dose: 10 mg Aspirin (Ecotrin) 81 mg PO DAILY [facility] Last Admin: 11/13/16 09:21 Dose: Not Given Epoetin Glenn (Procrit) 10,000 unit IV MWF [facility] Last Admin: 11/12/16 15:43 Dose: 10,000 unit Escitalopram Oxalate (Lexapro) 5 mg PO DAILY [facility] Last Admin: 11/13/16 09:21 Dose: Not Given Famotidine (Pepcid) 20 mg PO DAILY [facility] Last Admin: 11/13/16 09:22 Dose: Not Given Heparin Sodium (Porcine) (Heparin) 5,000 units SC Q8 [facility] Last Admin: 11/13/16 06:15 Dose: 5,000 units Hydralazine HCl (Apresoline) 75 mg PO Q8 [facility] Last Admin: 11/13/16 06:15 Dose: 75 mg Piperacillin Sod/Tazobactam Sod (Zosyn 2.25 Gm Iv Premix) 2.25 gm in 50 mls @ 100 mls/hr IVPB Q8 [facility] Last Admin: 11/13/16 06:15 Dose: 100 mls/hr Labetalol HCl (Trandate) 200 mg PO TID [facility] Last Admin: 11/13/16 09:18 Dose: 200 mg Lorazepam (Ativan) 0.5 mg PO Q6H PRN PRN Reason: Anxiety Last Admin: 11/13/16 07:40 Dose: 0.5 mg Nicotine (Nicoderm Cq) 1 patch TD DAILY [facility] Last Admin: 11/12/16 12:44 Dose: 1 patch Ondansetron HCl (Zofran Inj) 4 mg IVP Q8 PRN PRN Reason: Nausea/Vomiting Last Admin: 11/11/16 09:50 Dose: 4 mg - Labs Labs: 11/13/16 06:34 11/13/16 06:34 PT 11.9 SECONDS (9.7-12.2) 11/13/16 06:34 INR 1.1 11/13/16 06:34 APTT 27 SECONDS (21-34) D 11/13/16 06:34 - Constitutional Appears: No Acute Distress, Chronically Ill - Head Exam Head Exam: ATRAUMATIC, NORMAL INSPECTION - Eye Exam Eye Exam: EOMI, Normal appearance - Neck Exam Neck Exam: Full ROM, Normal Inspection - Respiratory Exam Respiratory Exam: Clear to Ausculation Bilateral, NORMAL BREATHING PATTERN - Cardiovascular Exam Cardiovascular Exam: Tachycardia, REGULAR RHYTHM - GI/Abdominal Exam GI & Abdominal Exam: Soft. absent: Tenderness - Extremities Exam Extremities Exam: Normal Inspection. absent: Tenderness - Neurological Exam Neurological Exam: Alert, CN II-XII Intact - Skin Skin Exam: Dry, Warm Assessment and Plan (1) Proteinuria Status: Acute (2) NSTEMI (non-ST elevated myocardial infarction) Status: Acute (3) AMPARO (acute kidney injury) Status: Acute (4) CHF (congestive heart failure) Status: Acute (5) Hypokalemia Status: Acute (6) Hypertensive emergency Status: Acute (7) CKD (chronic kidney disease) stage 5, GFR less than 15 ml/min Status: Acute (8) CKD stage 5 secondary to hypertension Status: Acute (9) ESRD (end stage renal disease) Status: Acute - Assessment and Plan (Free Text) Plan: Adjust BP meds Dialysis in AM PD cath/ permcath planned
[2016-11-13] MEDS ORDERED: Labetalol 25mg/5ml Syringe IVP STA (09:31)
--- NOTE | 2016-11-13 11:01 | PCM.PYCHPN ---
Psychiatric Progress Note - Psychiatric Progress Note Patient seen today, length of contact: 16 min Patient Chief Complaint: "I'm up and down" Problems Identified/Issues Discussed: She is seen, chart reviewed and case discussed No new sxs She is OK with meds but needs more time to stabilize Support given and sx-management discussed No SI, HI or AVH/del Medication Change: Yes (started lexapro) Medical Record Reviewed: Yes Mental Status Examination - Cognitive Function Orientation: Person, Place, Situation, Time Memory: Intact Attention: WNL Concentration: Poor Association: WNL Fund of Knowledge: WNL - Mood Mood: Depressed, Anxious - Affect Affect: Constricted - Speech Speech: Appropriate - Formal Thought Process Formal Thought Process: No Impairment - Suicidal Ideation Suicidal Ideation: No - Homicidal Ideation Homicidal Ideation: No Goal/Treatment Plan - Goal/Treatment Plan Need for Continued Stay: Severe functional impairment Progress Toward Problem(s) and Goals/Treatment Plan: Lexapro for depression and anxiety Ativan for anxiety, as needed Support and psychoeducation CBT Will follow
[2016-11-13] MEDS ORDERED: HEPARIN-NS 5,000 UNITS/500 ML 5,000 UNIT/500 ML BAG IV ONE (11:52)
[2016-11-13] MEDS ORDERED: ceFAZolin IV 1 gm in Dextrose 0 GM/0 ML BAG IVPB ONE (11:53)
[2016-11-13] MEDS ORDERED: Lidocaine 1% Inj (20ml) ONE ×2 (11:53→13:27)
[2016-11-13] MEDS ORDERED: Midazolam 2 MG/2 ML VIAL ONE (12:34)
[2016-11-13] MEDS ORDERED: Sodium Chloride 0.9% 500 ML IV ONE (12:35)
[2016-11-13] MEDS ORDERED: Propofol 10 mg/ml Inj (20 ML) ONE ×2 (12:37→13:12)
--- NOTE | 2016-11-13 14:31 | PCM.SURG1 ---
Surgeon's Initial Post Op Note - Surgeon's Notes Surgeon: Dr. Burgos Pumping Plant Operator: Sallie Key, PGY2; Andrew Howell, OMS-III Pre-Operative Diagnosis: renal failure Operative Findings: see full operative report Post-Operative Diagnosis: same Operation Performed: Right IJ permacatheter placement Specimen/Specimens Removed: none Estimated Blood Loss: EBL {In ML}: 20 Date of Surgery/Procedure: 11/13/16 Time of Surgery/Procedure: 12:30
[2016-11-13] MEDS: Labetalol Hydrochloride 300 mg Tab PO SCH ×2 (15:03→17:47)
--- NOTE | 2016-11-13 15:21 | RAD ---
HISTORY: post right permacath insertion COMPARISON: Chest x-ray performed 11/11/16 TECHNIQUE: Chest, one view. FINDINGS: Interval placement of right-sided dialysis catheter with distal tips at the distal SVC/ cavoatrial junction. LUNGS: The left costophrenic angles excluded from view. Mild to moderate pulmonary venous congestion. Discoid atelectasis, left mid lung zone. Linear atelectasis, right midlung zone. No large pleural effusion or definite pneumothorax identified. Please note that chest x-ray has limited sensitivity for the detection of pulmonary masses. CARDIOVASCULAR: Cardiomegaly. OSSEOUS STRUCTURES: No acute osseous abnormality identified. VISUALIZED UPPER ABDOMEN: Unremarkable. OTHER FINDINGS: None. IMPRESSION: Interval placement of right-sided dialysis catheter with distal tips at the distal SVC/ cavoatrial junction. Mild to moderate pulmonary venous congestion. Discoid atelectasis, left mid lung zone. Linear atelectasis, right midlung zone. Cardiomegaly.
--- NOTE | 2016-11-13 16:47 | RAD ---
PROCEDURE: Intraoperative Fluoroscopy. HISTORY: RENAL FAILURE FINDINGS: Fluoroscopic assistance was provided for right central venous catheter placement. Please refer to the operative report from
[2016-11-13] MEDS: HYDROmorphone 0.5 mg/0.5 ml ISec IVP PRN (20:01)
[2016-11-14] MEDS: HYDROmorphone 0.5 mg/0.5 ml ISec IVP PRN (02:36)
[2016-11-14] MEDS: Piperacill/Tazo 2.25gm in Dex 2.25 GM/50 ML BAG IVPB SCH (06:00)
--- NOTE | 2016-11-14 06:44 | CP.CCUPN ---
<Candace Soto - Last Filed: 11/14/16 10:04> CCU Subjective - Physician Review Subjective (Free Text): Patient was examined at bedside in the AM. Patient states she slept well. Patient states had a headache but it is better. Patient states she still feels anxious but denies the feeling of jumping out the window. Patient states she has tenderness where the permacath was placed yesterday on her right shoulder. Patient denies fever, nausea, vomiting, chest pain, palpitations, shortness of breath, change in vision, diarrhea, constipation, or pain on urination. 11/14/16 10:04 11/14/16 10:09 CCU Objective - Vital Signs / Intake & Output Vital Signs (Last 4 hours): Vital Signs Temp Pulse Resp BP Pulse Ox 11/14/16 04:00 98.4 F 87 17 97 11/14/16 03:56 89 22 170/98 H 95 11/14/16 03:26 86 25 H 167/95 H 94 L 11/14/16 03:00 87 21 97 11/14/16 02:56 90 15 172/91 H 96 Intake and Output (Last 8hrs): Intake & Output 11/13/16 11/13/16 11/14/16 14:59 22:59 06:59 Intake Total 100 350 0 Output Total 200 1001 Balance -100 -651 0 Intake: Intake, IV Amount 50 Right Antecubital 50 Oral 50 350 0 Output: Urine 200 1000 Urine, Voided 200 1000 Urine/Stool Mix 1 - Physical Exam Head: Positive for: Atraumatic, Normocephalic Extroacular Muscles: Positive for: EOMI Mouth: Positive for: Moist Mucous Membranes Neck: Positive for: Normal Range of Motion Respiratory/Chest: Positive for: Clear to Auscultation, Good Air Exchange. Negative for: Respiratory Distress, Accessory Muscle Use Cardiovascular: Positive for: Regular Rate and Rhythm, Normal S1, S2. Negative for: Murmurs Abdomen: Positive for: Normal Bowel Sounds. Negative for: Tenderness, Distention, Guarding Upper Extremity: Positive for: Normal Inspection. Negative for: Edema, Swelling Lower Extremity: Positive for: Normal Inspection. Negative for: Edema, CALF TENDERNESS Neurological: Positive for: Speech Normal Skin: Positive for: Warm, Dry. Negative for: Rashes Psychiatric: Positive for: Alert, Oriented x 3, Anxious. Negative for: Suicidal Ideation (denies suicidal ideation ) - Medications Active Medications: Active Medications Generic Name Dose Route Start Last Admin Trade Name Freq PRN Reason Stop Dose Admin Amlodipine Besylate 10 mg 11/09/16 10:00 11/13/16 09:18 Norvasc PO 10 mg DAILY ISABELLA Administration Aspirin 81 mg 11/08/16 10:00 11/13/16 15:07 Ecotrin PO 81 mg DAILY ISABELLA Administration Epoetin Glenn 10,000 unit 11/12/16 15:00 11/12/16 15:43 Procrit IV 10,000 unit MWF ISABELLA Administration Escitalopram Oxalate 5 mg 11/12/16 12:30 11/13/16 14:46 Lexapro PO 5 mg DAILY ISABELLA Administration Famotidine 20 mg 11/10/16 10:00 11/13/16 15:13 Pepcid PO 20 mg DAILY ISABELLA Administration Heparin Sodium (Porcine) 5,000 units 11/10/16 14:00 11/13/16 06:15 Heparin SC 5,000 units Q8 ISABELLA Administration Hydralazine HCl 75 mg 11/11/16 08:27 11/14/16 06:00 Apresoline PO 75 mg Q8 ISABELLA Administration Piperacillin Sod/Tazobactam Sod 2.25 gm in 50 mls @ 100 mls/hr 11/10/16 14:00 11/14/16 06:00 Zosyn 2.25 Gm Iv Premix IVPB 100 mls/hr Q8 ISABELLA Administration Ibuprofen 600 mg 11/13/16 14:40 11/13/16 17:50 Motrin Tab PO 600 mg TID PRN Administration Pain, moderate (4-7) Labetalol HCl 300 mg 11/13/16 14:00 11/13/16 17:47 Normodyne PO 300 mg TID ISABELLA Administration Lorazepam 0.5 mg 11/12/16 11:35 11/14/16 06:42 Ativan PO 0.5 mg Q6H PRN Administration Anxiety Nicotine 1 patch 11/12/16 11:00 11/13/16 10:23 Nicoderm Cq TD 1 patch DAILY ISABELLA Administration Ondansetron HCl 4 mg 11/08/16 11:13 11/13/16 16:00 Zofran Inj IVP 4 mg Q8 PRN Administration Nausea/Vomiting - Patient Studies Lab Studies: Lab Studies 11/13/16 11/13/16 11/13/16 Range/Units 06:34 06:34 06:34 WBC 13.3 H (4.8-10.8) K/uL RBC 4.28 (3.80-5.20) Mil/uL Hgb 9.9 L (11.0-16.0) g/dL Hct 31.8 L (34.0-47.0) % MCV 74.3 L (81.0-99.0) fL MCH 23.1 L (27.0-31.0) pg MCHC 31.1 L (33.0-37.0) g/dL RDW 23.1 H (11.5-14.5) % Plt Count 326 (130-400) K/uL MPV 7.2 (7.2-11.7) fL Neut % (Auto) 76.6 H (50.0-75.0) % Lymph % (Auto) 13.5 L (20.0-40.0) % [place] % (Auto) 5.9 (0.0-10.0) % Eos % (Auto) 2.9 (0.0-4.0) % Baso % (Auto) 1.1 (0.0-2.0) % Neut # 10.2 H (1.8-7.0) K/uL Lymph # 1.8 (1.0-4.3) K/uL [place] # 0.8 (0.0-0.8) K/uL Eos # 0.4 (0.0-0.7) K/uL Baso # 0.1 (0.0-0.2) K/uL PT 11.9 (9.7-12.2) SECONDS INR 1.1 APTT 27 D (21-34) SECONDS Sodium 132 (132-148) mmol/L Potassium 3.9 (3.6-5.2) mmol/L Chloride 94 L (98-107) mmol/L Carbon Dioxide 26 (22-30) mmol/L Anion Gap 16 (10-20) BUN 27 H (7-17) mg/dL Creatinine 4.4 H (0.7-1.2) MG/DL Est GFR ( Amer) 14 Est GFR (Non-Af Amer) 11 Random Glucose 92 (65-105) mg/dL Calcium 8.6 (8.6-10.4) mg/dl Phosphorus 4.6 H (2.5-4.5) mg/dL Magnesium 2.2 (1.6-2.3) mg/dL Total Bilirubin 0.8 (0.2-1.3) mg/dL AST 19 (14-36) U/L ALT 20 (9-52) U/L Alkaline Phosphatase 69 (38-126) U/L Total Protein 5.9 L (6.3-8.3) g/dL Albumin 3.2 L (3.5-5.0) g/dL Globulin 2.7 (2.2-3.9) gm/dL Albumin/Globulin Ratio 1.2 (1.0-2.1) Laboratory Results - last 24 hr 11/13/16 11/13/16 11/13/16 06:34 06:34 06:34 WBC 13.3 H RBC 4.28 Hgb 9.9 L Hct 31.8 L MCV 74.3 L MCH 23.1 L MCHC 31.1 L RDW 23.1 H Plt Count 326 MPV 7.2 Neut % (Auto) 76.6 H Lymph % (Auto) 13.5 L [place] % (Auto) 5.9 Eos % (Auto) 2.9 Baso % (Auto) 1.1 Neut # 10.2 H Lymph # 1.8 [place] # 0.8 Eos # 0.4 Baso # 0.1 PT 11.9 INR 1.1 APTT 27 D Sodium 132 Potassium 3.9 Chloride 94 L Carbon Dioxide 26 Anion Gap 16 BUN 27 H Creatinine 4.4 H Est GFR ( Amer) 14 Est GFR (Non-Af Amer) 11 Random Glucose 92 Calcium 8.6 Phosphorus 4.6 H Magnesium 2.2 Total Bilirubin 0.8 AST 19 ALT 20 Alkaline Phosphatase 69 Total Protein 5.9 L Albumin 3.2 L Globulin 2.7 Albumin/Globulin Ratio 1.2 Review of Systems - Constitutional Constitutional: absent: Fever - EENT Eyes: absent: Blurred Vision - Cardiovascular Cardiovascular: absent: Chest Pain, Dyspnea, Leg Edema, Lightheadedness, Palpitations - Respiratory Respiratory: absent: Cough - Gastrointestinal Gastrointestinal: absent: Abdominal Pain, Constipation, Diarrhea, Nausea, Vomiting - Genitourinary Genitourinary: absent: Dysuria - Neurological Neurological: Headaches - Psychiatric Psychiatric: Anxiety. absent: Suicidal Ideation Critical Care Progress Note - Nutrition Nutrition: Nutrition Category Date Time Status Heart Healthy Diet [DIET] Diets 11/13/16 Dinner Active Assessment/Plan - Assessment and Plan (Free Text) Assessment: 36 year old female presents to the ED with complaints of left sided chest pain and SOB for three days and associated with non-productive cough. Plan: Neuro: - Alert and oriented 3 - Anxious Pulm: - Chest X-ray (11/11/16): Slightly improved pulmonary edemal CHF - Chest X-ray (11/13/16): Interval placement of right sided dialysis catheter with distal tips at the distal SVC/cav oatrial junction. - Nicotine Patch 14mg/24hr daily CV: - Cardiology Consult: Dr. Carvajal --> help appreciated - Aspirin 81mg PO daily - Amlodipine 10mg PO daily - Hydralazine 75mg PO Q8 - Labetalol 300mg PO TID - ECHO (11/09/16): The left systolic ventricular function is normal. There is moderately increased wall thickness. Transmitral doppler flow pattern is Grade III-reversible restrictive diastolic dysfunction. Moderately increased left atrial volume. Moderate pulmonary HTN. Left pleural effusion. Left atrial pressure is elevated. 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 Heme: - H/H: 9.3/29.7 Renal: - Renal Failure - Fistula Permacath performed 11/13/16 - Surgery Consult: Dr. Burgos --> help appreciated - BUN/Cr (11/14): 37/6.5; BUN/Cr (11/13): 27/4.4; BUN/Cr (11/12/16): 41/6.5; BUN/Cr (): 37/5.3 - Urine HCG: Negative - Urine Catch: multiple species, propbable contamination - Nephrology Consult: Dr. Jordan --> help appreciated - f/u Aldosterone - f/u Metanephrines - f/u Plamsa Renin - Epoetin Glenn 10,000 unit IV MWF - Renal Ultrasound (11/08/16): Medical renal disease. No hydronephrosis or nephrolithiasis Endo: - f/u SCL-70 antibody - f/u ANCA GI: - Pepcid 20mg PO daily - C. Diff: negative ID: - Urine Catch: multiple species, propbable contamination - Naris: MRSA not detected - Blood culture (11/08/16): No growth - Zosyn 2.25gm in 50mls @100mls/hr IVPB (Started on 11/10/16): Discontinued 11/14/16 - Procalcitonin: 0.49 - f/u HIV antibody - f/u M. Pneumoniae AB (IgG) - C. Diff: negative - f/u anti streptolysin Psychiatry: - Psychiatry Consult: Dr. Mckeon --> help appreciated - Anxious - Escitalopram 5mg PO daily - Lorazepam 0.5mg PO q6h prn DVT proph - SCDs GI proph - Pepcid 20mg PO daily Code status - full code Disposition: Transferred to Medical floor Case discussed with Dr. Ed Soto PGY-1 <Jose Ward S - Last Filed: 11/14/16 16:24> CCU Objective - Vital Signs / Intake & Output Vital Signs (Last 4 hours): Vital Signs Pulse Resp BP Pulse Ox 11/14/16 15:00 77 13 98 11/14/16 14:31 81 12 139/85 100 11/14/16 14:23 81 15 142/81 100 11/14/16 14:00 81 20 96 11/14/16 13:41 80 24 118/70 98 11/14/16 13:00 91 H 16 100 11/14/16 12:32 94 H 18 189/107 H 100 11/14/16 12:31 97 H 21 188/101 H 100 Intake and Output (Last 8hrs): Intake & Output 11/14/16 11/14/16 11/14/16 06:59 14:59 22:59 Intake Total 50 425 0 Output Total 200 200 0 Balance -150 225 0 Intake: Intake, IV Amount 100 Right Antecubital 100 Oral 50 325 0 Output: Urine 200 200 0 Urine, Voided 200 200 0 Other: # Bowel Movements 1 0 - Medications Active Medications: Active Medications Generic Name Dose Route Start Last Admin Trade Name Freq PRN Reason Stop Dose Admin Amlodipine Besylate 10 mg 11/09/16 10:00 11/14/16 09:10 Norvasc PO 10 mg DAILY ISABELLA Administration Aspirin 81 mg 11/08/16 10:00 11/14/16 09:09 Ecotrin PO 81 mg DAILY ISABELLA Administration Clonidine HCl 0.1 mg 11/14/16 18:00 Catapres PO BID ISABELLA Epoetin Glenn 10,000 unit 11/12/16 15:00 11/14/16 10:15 Procrit IV 10,000 unit MWF ISABELLA Administration Escitalopram Oxalate 5 mg 11/12/16 12:30 11/14/16 09:09 Lexapro PO 5 mg DAILY ISABELLA Administration Famotidine 20 mg 11/10/16 10:00 11/14/16 09:10 Pepcid PO 20 mg DAILY ISABELLA Administration Ferric Sodium Gluconate Complex 125 mg 11/14/16 13:15 11/14/16 13:40 Ferrlecit IVPB 11/22/16 13:16 125 mg DAILY ISABELLA Administration Heparin Sodium (Porcine) 5,000 units 11/10/16 14:00 11/13/16 06:15 Heparin SC 5,000 units Q8 ISABELLA Administration Ibuprofen 600 mg 11/13/16 14:40 11/13/16 17:50 Motrin Tab PO 600 mg TID PRN Administration Pain, moderate (4-7) Labetalol HCl 300 mg 11/13/16 14:00 11/14/16 14:24 Normodyne PO 300 mg TID ISABELLA Administration Lorazepam 0.5 mg 11/12/16 11:35 11/14/16 12:39 Ativan PO 0.5 mg Q6H PRN Administration Anxiety Minoxidil 5 mg 11/14/16 18:00 Minoxidil PO BID [facility] Nicotine 1 patch 11/12/16 11:00 11/14/16 09:10 Nicoderm Cq TD 1 patch DAILY ISABELLA Administration Ondansetron HCl 4 mg 11/08/16 11:13 11/13/16 16:00 Zofran Inj IVP 4 mg Q8 PRN Administration Nausea/Vomiting - Patient Studies Lab Studies: Lab Studies 11/14/16 11/14/16 11/14/16 Range/Units 09:33 06:45 06:45 WBC 11.9 H (4.8-10.8) K/uL RBC 4.00 (3.80-5.20) Mil/uL Hgb 9.3 L (11.0-16.0) g/dL Hct 29.7 L (34.0-47.0) % MCV 74.1 L (81.0-99.0) fL MCH 23.3 L (27.0-31.0) pg MCHC 31.4 L (33.0-37.0) g/dL RDW 24.1 H (11.5-14.5) % Plt Count 300 (130-400) K/uL MPV 7.3 (7.2-11.7) fL Neut % (Auto) 74.7 (50.0-75.0) % Lymph % (Auto) 14.7 L (20.0-40.0) % [place] % (Auto) 5.7 (0.0-10.0) % Eos % (Auto) 4.1 H (0.0-4.0) % Baso % (Auto) 0.8 (0.0-2.0) % Neut # 8.9 H (1.8-7.0) K/uL Lymph # 1.8 (1.0-4.3) K/uL [place] # 0.7 (0.0-0.8) K/uL Eos # 0.5 (0.0-0.7) K/uL Baso # 0.1 (0.0-0.2) K/uL Sodium 135 (132-148) mmol/L Potassium 3.7 (3.6-5.2) mmol/L Chloride 99 (98-107) mmol/L Carbon Dioxide 24 (22-30) mmol/L Anion Gap 16 (10-20) BUN 37 H (7-17) mg/dL Creatinine 6.5 H (0.7-1.2) MG/DL Est GFR ( Amer) 9 Est GFR (Non-Af Amer) 7 Random Glucose 96 (65-105) mg/dL Calcium 9.3 (8.6-10.4) mg/dl Magnesium 2.5 H (1.6-2.3) mg/dL Total Bilirubin 0.6 (0.2-1.3) mg/dL AST 25 (14-36) U/L ALT 18 (9-52) U/L Alkaline Phosphatase 67 (38-126) U/L Total Protein 5.9 L (6.3-8.3) g/dL Albumin 3.1 L (3.5-5.0) g/dL Globulin 2.7 (2.2-3.9) gm/dL Albumin/Globulin Ratio 1.1 (1.0-2.1) HIV 1&2 Antibody Screen Negative (NEGATIVE) Laboratory Results - last 24 hr 11/14/16 11/14/16 11/14/16 06:45 06:45 09:33 WBC 11.9 H RBC 4.00 Hgb 9.3 L Hct 29.7 L MCV 74.1 L MCH 23.3 L MCHC 31.4 L RDW 24.1 H Plt Count 300 MPV 7.3 Neut % (Auto) 74.7 Lymph % (Auto) 14.7 L [place] % (Auto) 5.7 Eos % (Auto) 4.1 H Baso % (Auto) 0.8 Neut # 8.9 H Lymph # 1.8 [place] # 0.7 Eos # 0.5 Baso # 0.1 Sodium 135 Potassium 3.7 Chloride 99 Carbon Dioxide 24 Anion Gap 16 BUN 37 H Creatinine 6.5 H Est GFR ( Amer) 9 Est GFR (Non-Af Amer) 7 Random Glucose 96 Calcium 9.3 Magnesium 2.5 H Total Bilirubin 0.6 AST 25 ALT 18 Alkaline Phosphatase 67 Total Protein 5.9 L Albumin 3.1 L Globulin 2.7 Albumin/Globulin Ratio 1.1 HIV 1&2 Antibody Screen Negative Critical Care Progress Note - Nutrition Nutrition: Nutrition Category Date Time Status Heart Healthy Diet [DIET] Diets 11/13/16 Dinner Active Assessment/Plan (1) CKD stage 5 secondary to hypertension Current Visit: Yes Status: Acute Comment: sstatus post hemodialysis x2 and transfusion of packed RBCs For permacath placement by surgery breathing much improved Possible pneumonia on antibiotics Seen by cardiology for elevated troponin and possible cardiac catheter when stable (2) Pneumonia Current Visit: Yes Status: Acute Attending/Attestation - Attestation I have personally seen and examined this patient.: Yes I have fully participated in the care of the patient.: Yes I have reviewed all pertinent clinical information: Yes Notes (Text): 11/14/16 16:24 Patient seen and examined in the intensive care unit. Case discussed with house staff in the morning rounds. Stable for transfer to floor Continue hemodialysis and continue present treatment
[2016-11-14 06:59] LABS: BASO # 0.1 K/uL (0.0-0.2); BASO % 0.8 % (0.0-2.0); EOS # 0.5 K/uL (0.0-0.7); EOS % 4.1 % (0.0-4.0); HEMOGLOBIN 9.3 g/dL (11.0-16.0); LYMPH # 1.8 K/uL (1.0-4.3); LYMPH % 14.7 % (20.0-40.0); MEAN CELL VOLUME 74.1 fL (81.0-99.0); MEAN CORPUSCULAR HEMOGLOBIN 23.3 pg (27.0-31.0); MEAN CORPUSCULAR HGB CONC 31.4 g/dL (33.0-37.0); MEAN PLATELET VOLUME 7.3 fL (7.2-11.7); MONO # 0.7 K/uL (0.0-0.8); MONO % 5.7 % (0.0-10.0); NEUT # 8.9 K/uL (1.8-7.0); NEUT % 74.7 % (50.0-75.0); RED CELL DISTRIBUTION WIDTH 24.1 % (11.5-14.5); WHITE BLOOD COUNT 11.9 K/uL (4.8-10.8)
[2016-11-14 07:17] LABS: ALBUMIN 3.1 g/dL (3.5-5.0)
[2016-11-14 07:20] LABS: ALB/GLOB RATIO 1.1 (1.0-2.1); CALCIUM 9.3 mg/dl (8.6-10.4)
[2016-11-14 07:21] LABS: MAGNESIUM 2.5 mg/dL (1.6-2.3)
--- NOTE | 2016-11-14 08:34 | CP.PCM.PN ---
Subjective - Date & Time of Evaluation Date of Evaluation: 11/14/16 Time of Evaluation: 07:10 - Subjective Subjective: Patient seen and examined at bedside this AM. NAEO. Patient reports some pain that was well controlled with current pain regimen. Denies fevers, chills, chest pain, SOB. Objective - Vital Signs/Intake and Output Vital Signs (last 24 hours): Temp Pulse Resp BP Pulse Ox 99 F 91 H 25 H 155/99 H 97 11/14/16 08:00 11/14/16 08:00 11/14/16 08:00 11/14/16 07:29 11/14/16 08:00 Intake and Output: 11/14/16 11/14/16 06:59 18:59 Intake Total 150 0 Output Total 1201 0 Balance -1051 0 - Medications Medications: Current Medications Amlodipine Besylate (Norvasc) 10 mg PO DAILY [facility] Last Admin: 11/13/16 09:18 Dose: 10 mg Aspirin (Ecotrin) 81 mg PO DAILY [facility] Last Admin: 11/13/16 15:07 Dose: 81 mg Epoetin Glenn (Procrit) 10,000 unit IV MWF [facility] Last Admin: 11/12/16 15:43 Dose: 10,000 unit Escitalopram Oxalate (Lexapro) 5 mg PO DAILY [facility] Last Admin: 11/13/16 14:46 Dose: 5 mg Famotidine (Pepcid) 20 mg PO DAILY [facility] Last Admin: 11/13/16 15:13 Dose: 20 mg Heparin Sodium (Porcine) (Heparin) 5,000 units SC Q8 [facility] Last Admin: 11/13/16 06:15 Dose: 5,000 units Hydralazine HCl (Apresoline) 75 mg PO Q8 [facility] Last Admin: 11/14/16 06:00 Dose: 75 mg Piperacillin Sod/Tazobactam Sod (Zosyn 2.25 Gm Iv Premix) 2.25 gm in 50 mls @ 100 mls/hr IVPB Q8 [facility] Last Admin: 11/14/16 06:00 Dose: 100 mls/hr Ibuprofen (Motrin Tab) 600 mg PO TID PRN PRN Reason: Pain, moderate (4-7) Last Admin: 11/13/16 17:50 Dose: 600 mg Labetalol HCl (Normodyne) 300 mg PO TID [facility] Last Admin: 11/13/16 17:47 Dose: 300 mg Lorazepam (Ativan) 0.5 mg PO Q6H PRN PRN Reason: Anxiety Last Admin: 11/14/16 06:42 Dose: 0.5 mg Nicotine (Nicoderm Cq) 1 patch TD DAILY [facility] Last Admin: 11/13/16 10:23 Dose: 1 patch Ondansetron HCl (Zofran Inj) 4 mg IVP Q8 PRN PRN Reason: Nausea/Vomiting Last Admin: 11/13/16 16:00 Dose: 4 mg - Labs Labs: 11/14/16 06:45 11/14/16 06:45 PT 11.9 SECONDS (9.7-12.2) 11/13/16 06:34 INR 1.1 11/13/16 06:34 APTT 27 SECONDS (21-34) D 11/13/16 06:34 - Constitutional Appears: Well, Non-toxic, No Acute Distress - Head Exam Head Exam: ATRAUMATIC, NORMOCEPHALIC - Eye Exam Eye Exam: Normal appearance. absent: Conjunctival injection, Scleral icterus - ENT Exam ENT Exam: Mucous Membranes Moist, Normal Oropharynx - Neck Exam Additional comments: surgical dressing c/d/i, no sign of active bleed or swelling. trachea midline - Respiratory Exam Respiratory Exam: NORMAL BREATHING PATTERN. absent: Accessory Muscle Use, Respiratory Distress - Cardiovascular Exam Cardiovascular Exam: RRR - GI/Abdominal Exam GI & Abdominal Exam: Soft. absent: Distended, Tenderness - Extremities Exam Extremities Exam: absent: Calf Tenderness, Pedal Edema, Tenderness - Neurological Exam Neurological Exam: Alert, Awake, Oriented x3 - Psychiatric Exam Psychiatric exam: Normal Affect, Normal Mood - Skin Skin Exam: Dry, Normal Color, Warm Assessment and Plan - Assessment and Plan (Free Text) Assessment: 36F with AMPARO requiring HD POD#1 S/P permacath placement in the RIJ -afebrile, VSS -going for hemodialysis today -Cleared by cardio for peritoneal dialysis catheter placement Plan: -use permacath for HD today -leave R femoral TLC until after HD successfully performed through right IJ permacath -Optimize patient for possible peritoneal dialysis catheter placement. Further plans per Dr. Burgos -Continue analgesics, DVT and GI ppx -Continue medical management per primary and consulting attendings Will discuss with Dr. Loretta Key, PGY2
[2016-11-14] MEDS: EPOETIN ALFA 10,000 UNIT/ML ML IV SCH (10:15)
[2016-11-14] MEDS: Labetalol Hydrochloride 300 mg Tab PO SCH ×4 (12:34→17:46)
--- NOTE | 2016-11-14 13:13 | CP.PCM.PN ---
Subjective - Date & Time of Evaluation Date of Evaluation: 11/14/16 Time of Evaluation: 13:11 - Subjective Subjective: s/p dialysis now- UF 2000ml Alert; permcath placed 11/13 HTN remains uncontrolled Labs acceptable except TSAT low- add ferrlecit Considering PD cath insertion next week Objective - Vital Signs/Intake and Output Vital Signs (last 24 hours): Temp Pulse Resp BP Pulse Ox 98.8 F 91 H 16 189/107 H 100 11/14/16 12:20 11/14/16 13:00 11/14/16 13:00 11/14/16 12:32 11/14/16 13:00 Intake and Output: 11/14/16 11/14/16 06:59 18:59 Intake Total 150 125 Output Total 1201 200 Balance -1051 -75 - Medications Medications: Current Medications Amlodipine Besylate (Norvasc) 10 mg PO DAILY [facility] Last Admin: 11/14/16 09:10 Dose: 10 mg Aspirin (Ecotrin) 81 mg PO DAILY [facility] Last Admin: 11/14/16 09:09 Dose: 81 mg Epoetin Glenn (Procrit) 10,000 unit IV MWF [facility] Last Admin: 11/14/16 10:15 Dose: 10,000 unit Escitalopram Oxalate (Lexapro) 5 mg PO DAILY [facility] Last Admin: 11/14/16 09:09 Dose: 5 mg Famotidine (Pepcid) 20 mg PO DAILY [facility] Last Admin: 11/14/16 09:10 Dose: 20 mg Heparin Sodium (Porcine) (Heparin) 5,000 units SC Q8 [facility] Last Admin: 11/13/16 06:15 Dose: 5,000 units Hydralazine HCl (Apresoline) 75 mg PO Q8 [facility] Last Admin: 11/14/16 06:00 Dose: 75 mg Ibuprofen (Motrin Tab) 600 mg PO TID PRN PRN Reason: Pain, moderate (4-7) Last Admin: 11/13/16 17:50 Dose: 600 mg Labetalol HCl (Normodyne) 300 mg PO TID [facility] Last Admin: 11/14/16 12:37 Dose: 300 mg Lorazepam (Ativan) 0.5 mg PO Q6H PRN PRN Reason: Anxiety Last Admin: 11/14/16 12:39 Dose: 0.5 mg Nicotine (Nicoderm Cq) 1 patch TD DAILY [facility] Last Admin: 11/14/16 09:10 Dose: 1 patch Ondansetron HCl (Zofran Inj) 4 mg IVP Q8 PRN PRN Reason: Nausea/Vomiting Last Admin: 11/13/16 16:00 Dose: 4 mg - Labs Labs: 11/14/16 06:45 11/14/16 06:45 PT 11.9 SECONDS (9.7-12.2) 11/13/16 06:34 INR 1.1 11/13/16 06:34 APTT 27 SECONDS (21-34) D 11/13/16 06:34 - Constitutional Appears: No Acute Distress, Chronically Ill - Head Exam Head Exam: ATRAUMATIC, NORMAL INSPECTION - Eye Exam Eye Exam: EOMI, Normal appearance - Neck Exam Neck Exam: Normal Inspection. absent: Tenderness - Respiratory Exam Respiratory Exam: Clear to Ausculation Bilateral, NORMAL BREATHING PATTERN - Cardiovascular Exam Cardiovascular Exam: REGULAR RHYTHM, +S1 - GI/Abdominal Exam GI & Abdominal Exam: Soft. absent: Tenderness - Extremities Exam Extremities Exam: Normal Inspection. absent: Tenderness - Neurological Exam Neurological Exam: Alert, CN II-XII Intact - Skin Skin Exam: Dry, Warm Assessment and Plan (1) Proteinuria Status: Acute (2) NSTEMI (non-ST elevated myocardial infarction) Status: Acute (3) AMPARO (acute kidney injury) Status: Acute (4) CHF (congestive heart failure) Status: Acute (5) Hypokalemia Status: Acute (6) Hypertensive emergency Status: Acute (7) CKD (chronic kidney disease) stage 5, GFR less than 15 ml/min Status: Acute (8) CKD stage 5 secondary to hypertension Status: Acute (9) ESRD (end stage renal disease) Status: Acute - Assessment and Plan (Free Text) Plan: Dialysis MWF- incease time Increase BP control Add IV Fe Outpt HD placement- consider PD training
[2016-11-14] MEDS: Ferric Sodium Gluconat Complex 62.5 mg/5 ml Vial IVPB SCH (13:40)
--- NOTE | 2016-11-14 16:28 | CP.PCM.PN ---
Subjective - Date & Time of Evaluation Date of Evaluation: 11/14/16 Time of Evaluation: 16:23 - Subjective Subjective: PGY2 progress note cardiology for Dr. Carvajal Pt seen and examined at bedside. She states that she is feeling well today and does not have any acute complaints. She had her permacath placed yesterday and she was having HD completed today during examination; tolerating procedure well. Denies f/c/n/v/cp/sob/diarrhea/constipation. As per icu team and nursing, no acute events overnight and pt is to be transferred to medical floors today. As per ICU team, her BP has been well controlled as of yesterday when lobetolol does was increased to 300mg TID. BP this morning is 155/99. Objective - Vital Signs/Intake and Output Vital Signs (last 24 hours): Temp Pulse Resp BP Pulse Ox 98.8 F 77 13 139/85 98 11/14/16 12:20 11/14/16 15:00 11/14/16 15:00 11/14/16 14:31 11/14/16 15:00 Intake and Output: 11/14/16 11/14/16 06:59 18:59 Intake Total 150 425 Output Total 1201 200 Balance -1051 225 - Medications Medications: Current Medications Amlodipine Besylate (Norvasc) 10 mg PO DAILY [facility] Last Admin: 11/14/16 09:10 Dose: 10 mg Aspirin (Ecotrin) 81 mg PO DAILY [facility] Last Admin: 11/14/16 09:09 Dose: 81 mg Clonidine HCl (Catapres) 0.1 mg PO BID [facility] Epoetin Glenn (Procrit) 10,000 unit IV MWF [facility] Last Admin: 11/14/16 10:15 Dose: 10,000 unit Escitalopram Oxalate (Lexapro) 5 mg PO DAILY [facility] Last Admin: 11/14/16 09:09 Dose: 5 mg Famotidine (Pepcid) 20 mg PO DAILY [facility] Last Admin: 11/14/16 09:10 Dose: 20 mg Ferric Sodium Gluconate Complex (Ferrlecit) 125 mg IVPB DAILY [facility] Stop: 11/22/16 13:16 Last Admin: 11/14/16 13:40 Dose: 125 mg Heparin Sodium (Porcine) (Heparin) 5,000 units SC Q8 [facility] Last Admin: 11/13/16 06:15 Dose: 5,000 units Ibuprofen (Motrin Tab) 600 mg PO TID PRN PRN Reason: Pain, moderate (4-7) Last Admin: 11/13/16 17:50 Dose: 600 mg Labetalol HCl (Normodyne) 300 mg PO TID [facility] Last Admin: 11/14/16 14:24 Dose: 300 mg Lorazepam (Ativan) 0.5 mg PO Q6H PRN PRN Reason: Anxiety Last Admin: 11/14/16 12:39 Dose: 0.5 mg Minoxidil (Minoxidil) 5 mg PO BID [facility] Nicotine (Nicoderm Cq) 1 patch TD DAILY [facility] Last Admin: 11/14/16 09:10 Dose: 1 patch Ondansetron HCl (Zofran Inj) 4 mg IVP Q8 PRN PRN Reason: Nausea/Vomiting Last Admin: 11/13/16 16:00 Dose: 4 mg - Labs Labs: 11/14/16 06:45 11/14/16 06:45 PT 11.9 SECONDS (9.7-12.2) 11/13/16 06:34 INR 1.1 11/13/16 06:34 APTT 27 SECONDS (21-34) D 11/13/16 06:34 - Constitutional Appears: No Acute Distress - Eye Exam Eye Exam: EOMI, Normal appearance - ENT Exam ENT Exam: Mucous Membranes Moist - Respiratory Exam Respiratory Exam: Clear to Ausculation Bilateral, NORMAL BREATHING PATTERN - Cardiovascular Exam Cardiovascular Exam: REGULAR RHYTHM, +S1 - GI/Abdominal Exam GI & Abdominal Exam: Soft. absent: Distended, Tenderness - Extremities Exam Extremities Exam: Normal Inspection - Neurological Exam Neurological Exam: Alert, Awake, Oriented x3 Assessment and Plan - Assessment and Plan (Free Text) Assessment: 36 F PMHx HTN admitted with acute heart failure, acute renal insufficiency, acute pulmonary edema, and severe hypokalemia who underwent hemodialysis today and is clinically improving Plan: Diastolic CHF -BP better controlled with increased lobetolol dose to 300mg TID- likely secondary to CKD -Permacath placed yesterday and undergoing HD today -Echo 11/10: LV systolic ventricular function is normal; moderately increased wall thickness; Grade III reversible restrictive diastolic dysfunction; Moderately increased L atrial volume; moderate pulmonary HTN; L pleural effusion ; LA pressure is elevated; consider restrictive cardiomyopathy -CXR 11/13: mild-mod pulmonary vascular congestion -proBNP 41010 on admission -Norvasc 10mg po daily -Hydralazine 75mg po q8 -Labetalol 200mg po tid -ASA 81mg po daily - Pt has normal EF, improving CHF, NSR EKG and currently asymptomatic. Proceed with peritoneal dialysis catheter insertion under general anesthesia. Case discussed with Dr. Carvajal
--- NOTE | 2016-11-15 08:27 | CP.PCM.PN ---
Subjective - Date & Time of Evaluation Date of Evaluation: 11/15/16 Time of Evaluation: 06:10 - Subjective Subjective: Vascular Surgery Dr. Burgos Pt S&E @bedside. NAEO. transferred out of the ICU to . denies CP, SOB, F/C, N/ V. some neck pain at insertion site[facility]. Objective - Vital Signs/Intake and Output Vital Signs (last 24 hours): Temp Pulse Resp BP Pulse Ox 98.2 F 82 20 152/77 H 95 11/15/16 03:05 11/15/16 03:05 11/15/16 03:05 11/15/16 03:05 11/15/16 03:05 - Medications Medications: Current Medications Amlodipine Besylate (Norvasc) 10 mg PO DAILY [facility] Last Admin: 11/14/16 09:10 Dose: 10 mg Aspirin (Ecotrin) 81 mg PO DAILY [facility] Last Admin: 11/14/16 09:09 Dose: 81 mg Clonidine HCl (Catapres) 0.1 mg PO BID [facility] Last Admin: 11/14/16 17:46 Dose: 0.1 mg Epoetin Glenn (Procrit) 10,000 unit IV MWF [facility] Last Admin: 11/14/16 10:15 Dose: 10,000 unit Escitalopram Oxalate (Lexapro) 5 mg PO DAILY [facility] Last Admin: 11/14/16 09:09 Dose: 5 mg Famotidine (Pepcid) 20 mg PO DAILY [facility] Last Admin: 11/14/16 09:10 Dose: 20 mg Ferric Sodium Gluconate Complex (Ferrlecit) 125 mg IVPB DAILY [facility] Stop: 11/22/16 13:16 Last Admin: 11/14/16 13:40 Dose: 125 mg Heparin Sodium (Porcine) (Heparin) 5,000 units SC Q8 [facility] Last Admin: 11/13/16 06:15 Dose: 5,000 units Ibuprofen (Motrin Tab) 600 mg PO TID PRN PRN Reason: Pain, moderate (4-7) Last Admin: 11/13/16 17:50 Dose: 600 mg Labetalol HCl (Normodyne) 300 mg PO TID [facility] Last Admin: 11/14/16 17:46 Dose: 300 mg Lorazepam (Ativan) 0.5 mg PO Q6H PRN PRN Reason: Anxiety Last Admin: 11/15/16 03:07 Dose: 0.5 mg Minoxidil (Minoxidil) 5 mg PO BID [facility] Last Admin: 11/14/16 17:46 Dose: 5 mg Nicotine (Nicoderm Cq) 1 patch TD DAILY [facility] Last Admin: 11/14/16 09:10 Dose: 1 patch Ondansetron HCl (Zofran Inj) 4 mg IVP Q8 PRN PRN Reason: Nausea/Vomiting Last Admin: 11/13/16 16:00 Dose: 4 mg - Labs Labs: 11/14/16 06:45 11/14/16 06:45 PT 11.9 SECONDS (9.7-12.2) 11/13/16 06:34 INR 1.1 11/13/16 06:34 APTT 27 SECONDS (21-34) D 11/13/16 06:34 - Constitutional Appears: Non-toxic, No Acute Distress - Head Exam Head Exam: NORMAL INSPECTION - Eye Exam Eye Exam: Normal appearance - ENT Exam ENT Exam: Mucous Membranes Moist - Neck Exam Additional comments: RIJ permacath in place dressing c/d/i - Respiratory Exam Respiratory Exam: NORMAL BREATHING PATTERN. absent: Accessory Muscle Use, Respiratory Distress - Cardiovascular Exam Cardiovascular Exam: absent: Bradycardia, Tachycardia - GI/Abdominal Exam GI & Abdominal Exam: Soft. absent: Distended - Neurological Exam Neurological Exam: Alert, Awake, Oriented x3 - Psychiatric Exam Psychiatric exam: Normal Affect, Normal Mood - Skin Skin Exam: Dry, Intact, Normal Color, Warm Assessment and Plan - Assessment and Plan (Free Text) Assessment: 36 y/o F w/ AMPARO requiring HD POD#2 s/p RIJ permacath placement - Peritoneal dialysis catheter placement Thursday - Cont pain management - GI/DVTPPx - Cont medical management per primary and consultants Pt discussed w/ Dr. Loretta Landeros PGY2
--- NOTE | 2016-11-15 10:05 | CP.PCM.PN ---
Subjective - Date & Time of Evaluation Date of Evaluation: 11/15/16 Time of Evaluation: 10:03 - Subjective Subjective: pt seen and examined out of icu, on floors now no SOB BP better had HD yesterday ROS- 10 point ROS negative Objective - Vital Signs/Intake and Output Vital Signs (last 24 hours): Temp Pulse Resp BP Pulse Ox 98.2 F 82 20 152/77 H 95 11/15/16 03:05 11/15/16 03:05 11/15/16 03:05 11/15/16 03:05 11/15/16 03:05 - Medications Medications: Current Medications Amlodipine Besylate (Norvasc) 10 mg PO DAILY [facility] Last Admin: 11/14/16 09:10 Dose: 10 mg Aspirin (Ecotrin) 81 mg PO DAILY [facility] Last Admin: 11/14/16 09:09 Dose: 81 mg Clonidine HCl (Catapres) 0.1 mg PO BID [facility] Last Admin: 11/14/16 17:46 Dose: 0.1 mg Epoetin Glenn (Procrit) 10,000 unit IV MWF [facility] Last Admin: 11/14/16 10:15 Dose: 10,000 unit Escitalopram Oxalate (Lexapro) 5 mg PO DAILY [facility] Last Admin: 11/14/16 09:09 Dose: 5 mg Famotidine (Pepcid) 20 mg PO DAILY [facility] Last Admin: 11/14/16 09:10 Dose: 20 mg Ferric Sodium Gluconate Complex (Ferrlecit) 125 mg IVPB DAILY [facility] Stop: 11/22/16 13:16 Last Admin: 11/14/16 13:40 Dose: 125 mg Heparin Sodium (Porcine) (Heparin) 5,000 units SC Q8 [facility] Last Admin: 11/13/16 06:15 Dose: 5,000 units Ibuprofen (Motrin Tab) 600 mg PO TID PRN PRN Reason: Pain, moderate (4-7) Last Admin: 11/13/16 17:50 Dose: 600 mg Labetalol HCl (Normodyne) 300 mg PO TID [facility] Last Admin: 11/14/16 17:46 Dose: 300 mg Lorazepam (Ativan) 0.5 mg PO Q6H PRN PRN Reason: Anxiety Last Admin: 11/15/16 03:07 Dose: 0.5 mg Minoxidil (Minoxidil) 5 mg PO BID [facility] Last Admin: 11/14/16 17:46 Dose: 5 mg Nicotine (Nicoderm Cq) 1 patch TD DAILY [facility] Last Admin: 11/14/16 09:10 Dose: 1 patch Ondansetron HCl (Zofran Inj) 4 mg IVP Q8 PRN PRN Reason: Nausea/Vomiting Last Admin: 11/13/16 16:00 Dose: 4 mg - Labs Labs: 11/14/16 06:45 11/14/16 06:45 PT 11.9 SECONDS (9.7-12.2) 11/13/16 06:34 INR 1.1 11/13/16 06:34 APTT 27 SECONDS (21-34) D 11/13/16 06:34 - Constitutional Appears: Well, Non-toxic - Head Exam Head Exam: ATRAUMATIC, NORMOCEPHALIC - Eye Exam Eye Exam: EOMI, PERRL - ENT Exam ENT Exam: Mucous Membranes Moist - Neck Exam Neck Exam: Full ROM - Respiratory Exam Respiratory Exam: Clear to Ausculation Bilateral. absent: Rhonchi, Wheezes - Cardiovascular Exam Cardiovascular Exam: REGULAR RHYTHM, +S1, +S2 - GI/Abdominal Exam GI & Abdominal Exam: Soft. absent: Tenderness - Extremities Exam Extremities Exam: Full ROM. absent: Pedal Edema - Neurological Exam Neurological Exam: Alert, Awake, Oriented x3 - Psychiatric Exam Psychiatric exam: Normal Affect, Normal Mood - Skin Skin Exam: Dry, Warm Assessment and Plan (1) Anemia Status: Acute (2) CKD (chronic kidney disease) stage 5, GFR less than 15 ml/min Status: Acute (3) ESRD (end stage renal disease) Status: Acute (4) Hypertensive urgency Status: Acute - Assessment and Plan (Free Text) Plan: HD thursday for PD catheter placement on thursday social media marketing manager for out pt HD unit placement
[2016-11-15] MEDS: Ferric Sodium Gluconat Complex 62.5 mg/5 ml Vial IVPB SCH (10:11)
[2016-11-15] MEDS: Labetalol Hydrochloride 300 mg Tab PO SCH ×3 (10:15→18:00)
--- NOTE | 2016-11-15 15:56 | PCM.PYCHPN ---
Psychiatric Progress Note - Psychiatric Progress Note Patient seen today, length of contact: 15 min Patient Chief Complaint: "I'm OK" Problems Identified/Issues Discussed: She is seen, chart reviewed. Out of ICU Somewhat worried and still down but better than before, no SI or other acute sxs No SEs from meds Support given Medication Change: Yes (increase lexapro) Medical Record Reviewed: Yes Mental Status Examination - Cognitive Function Orientation: Person, Place, Situation, Time Memory: Intact Attention: WNL Concentration: Poor Association: WNL Fund of Knowledge: WNL - Mood Mood: Depressed, Anxious - Affect Affect: Constricted - Speech Speech: Appropriate - Formal Thought Process Formal Thought Process: No Impairment - Suicidal Ideation Suicidal Ideation: No - Homicidal Ideation Homicidal Ideation: No Goal/Treatment Plan - Goal/Treatment Plan Need for Continued Stay: Severe functional impairment, Other (medical reasons) Progress Toward Problem(s) and Goals/Treatment Plan: Lexapro for depression and anxiety; dose increased Ativan for anxiety, as needed Support and psychoeducation CBT Refer to [facility] will sign off
--- NOTE | 2016-11-15 19:48 | CP.PCM.PN ---
<Coral Warner - Last Filed: 11/15/16 19:46> Subjective - Date & Time of Evaluation Date of Evaluation: 11/15/16 Time of Evaluation: 07:00 - Subjective Subjective: PGY1-Medicine Note- Dr. Garcia's Service Patient seen and examined at bedside and in no acute distress. Patient anxious and eager to leave the hospital. Patient has some tenderness around permacath site. Patient denies chest pain, palpitations, shortness of breath, abdominal pain, nausea, vomiting, diarrhea, constipation. Objective - Vital Signs/Intake and Output Vital Signs (last 24 hours): Temp Pulse Resp BP Pulse Ox 98.1 F 81 18 127/67 97 11/15/16 16:43 11/15/16 18:10 11/15/16 16:43 11/15/16 18:10 11/15/16 16:43 - Medications Medications: Current Medications Amlodipine Besylate (Norvasc) 10 mg PO DAILY [facility] Last Admin: 11/15/16 10:10 Dose: 10 mg Aspirin (Ecotrin) 81 mg PO DAILY [facility] Last Admin: 11/15/16 14:40 Dose: 81 mg Clonidine HCl (Catapres) 0.1 mg PO BID [facility] Last Admin: 11/15/16 18:09 Dose: 0.1 mg Epoetin Glenn (Procrit) 10,000 unit IV MWF [facility] Last Admin: 11/14/16 10:15 Dose: 10,000 unit Escitalopram Oxalate (Lexapro) 5 mg PO DAILY [facility] Last Admin: 11/15/16 10:15 Dose: 5 mg Famotidine (Pepcid) 20 mg PO DAILY [facility] Last Admin: 11/15/16 10:10 Dose: 20 mg Ferric Sodium Gluconate Complex (Ferrlecit) 125 mg IVPB DAILY [facility] Stop: 11/22/16 13:16 Last Admin: 11/15/16 10:11 Dose: 125 mg Heparin Sodium (Porcine) (Heparin) 5,000 units SC Q8 [facility] Last Admin: 11/13/16 06:15 Dose: 5,000 units Ibuprofen (Motrin Tab) 600 mg PO TID PRN PRN Reason: Pain, moderate (4-7) Last Admin: 11/15/16 10:10 Dose: 600 mg Labetalol HCl (Normodyne) 300 mg PO TID [facility] Last Admin: 11/15/16 14:40 Dose: 300 mg Lorazepam (Ativan) 0.5 mg PO Q6H PRN PRN Reason: Anxiety Last Admin: 11/15/16 03:07 Dose: 0.5 mg Minoxidil (Minoxidil) 5 mg PO BID [facility] Last Admin: 11/15/16 18:09 Dose: 5 mg Nicotine (Nicoderm Cq) 1 patch TD DAILY [facility] Last Admin: 11/15/16 10:15 Dose: 1 patch Ondansetron HCl (Zofran Inj) 4 mg IVP Q8 PRN PRN Reason: Nausea/Vomiting Last Admin: 11/13/16 16:00 Dose: 4 mg - Labs Labs: 11/14/16 06:45 11/14/16 06:45 PT 11.9 SECONDS (9.7-12.2) 11/13/16 06:34 INR 1.1 11/13/16 06:34 APTT 27 SECONDS (21-34) D 11/13/16 06:34 - Constitutional Appears: Well, Non-toxic, No Acute Distress - Head Exam Head Exam: ATRAUMATIC, NORMAL INSPECTION, NORMOCEPHALIC - Eye Exam Eye Exam: EOMI, Normal appearance, PERRL - ENT Exam ENT Exam: Mucous Membranes Moist, Normal Exam - Neck Exam Neck Exam: Full ROM, Normal Inspection. absent: Lymphadenopathy - Respiratory Exam Respiratory Exam: Clear to Ausculation Bilateral, NORMAL BREATHING PATTERN. absent: Rales, Rhonchi, Wheezes, Respiratory Distress, Stridor - Cardiovascular Exam Cardiovascular Exam: REGULAR RHYTHM, RRR, +S1, +S2. absent: Murmur - GI/Abdominal Exam GI & Abdominal Exam: Soft, Normal Bowel Sounds. absent: Tenderness - Extremities Exam Extremities Exam: Full ROM, Normal Capillary Refill, Normal Inspection. absent : Joint Swelling, Pedal Edema - Back Exam Back Exam: NORMAL INSPECTION - Neurological Exam Neurological Exam: Alert, Awake, Oriented x3 - Psychiatric Exam Psychiatric exam: Anxious - Skin Skin Exam: Normal Color, Warm Additional comments: right permacath slightly erythematous Assessment and Plan - Assessment and Plan (Free Text) Assessment: CHF - Chest X-ray (11/11/16): Slightly improved pulmonary edemal CHF - Chest X-ray (11/13/16): Interval placement of right sided dialysis catheter with distal tips at the distal SVC/cav oatrial junction. - Nicotine Patch 14mg/24hr daily - Cardiology Consult: Dr. Carvajal --> help appreciated - Aspirin 81mg PO daily - Amlodipine 10mg PO daily - Hydralazine 75mg PO Q8 - Labetalol 300mg PO TID - ECHO (11/09/16): The left systolic ventricular function is normal. There is moderately increased wall thickness. Transmitral doppler flow pattern is Grade III-reversible restrictive diastolic dysfunction. Moderately increased left atrial volume. Moderate pulmonary HTN. Left pleural effusion. Left atrial pressure is elevated. 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 Anemia: - H/H: 9.3/29.7 Renal Failure: - Patient to get peritoneal dialysis catheter placed 11/17 - Fistula Permacath performed 11/13/16 - Surgery Consult: Dr. Burgos --> help appreciated - BUN/Cr (11/14): 37/6.5; BUN/Cr (11/13): 27/4.4; BUN/Cr (11/12/16): 41/6.5; BUN/Cr (): 37/5.3 - Urine HCG: Negative - Urine Catch: multiple species, propbable contamination - Nephrology Consult: Dr. Jordan --> help appreciated - f/u Aldosterone - f/u Metanephrines - f/u Plamsa Renin - Epoetin Glenn 10,000 unit IV MWF - Renal Ultrasound (11/08/16): Medical renal disease. No hydronephrosis or nephrolithiasis Endo: - f/u SCL-70 antibody - f/u ANCA GI: - Pepcid 20mg PO daily - C. Diff: negative ID: - Urine Catch: multiple species, propbable contamination - Naris: MRSA not detected - Blood culture (11/08/16): No growth - Zosyn 2.25gm in 50mls @100mls/hr IVPB (Started on 11/10/16): Discontinued 11/14/16 - Procalcitonin: 0.49 - HIV begative - M. Pneumoniae AB (IgG) + IgM: negative - C. Diff: negative - f/u anti streptolysin Psychiatry: - Psychiatry Consult: Dr. Mckeon --> help appreciated - Anxious - Escitalopram 5mg PO daily - Lorazepam 0.5mg PO q6h prn DVT proph - SCDs GI proph - Pepcid 20mg PO daily <Patric Garcia Jr. - Last Filed: 11/18/16 10:43> Objective - Vital Signs/Intake and Output Vital Signs (last 24 hours): Temp Pulse Resp BP Pulse Ox 98.2 F 73 20 118/72 100 11/18/16 08:18 11/18/16 08:18 11/18/16 08:18 11/18/16 08:18 11/18/16 08:18 - Medications Medications: Current Medications Amlodipine Besylate (Norvasc) 10 mg PO DAILY [facility] Last Admin: 11/18/16 09:37 Dose: 10 mg Aspirin (Ecotrin) 81 mg PO DAILY [facility] Last Admin: 11/18/16 09:37 Dose: 81 mg Calcium Acetate (Phoslo) 667 mg PO TIDCC [facility] Clonidine HCl (Catapres) 0.1 mg PO BID [facility] Last Admin: 11/18/16 09:37 Dose: 0.1 mg Epoetin Glenn (Procrit) 10,000 unit IV MWF [facility] Last Admin: 11/17/16 10:37 Dose: 10,000 unit Escitalopram Oxalate (Lexapro) 10 mg PO DAILY [facility] Last Admin: 11/18/16 09:37 Dose: 10 mg Famotidine (Pepcid) 20 mg PO DAILY [facility] Last Admin: 11/18/16 09:37 Dose: 20 mg Ferric Sodium Gluconate Complex (Ferrlecit) 125 mg IVPB DAILY [facility] Stop: 11/22/16 13:16 Last Admin: 11/18/16 09:36 Dose: 125 mg Heparin Sodium (Porcine) (Heparin) 5,000 units SC Q8 [facility] Last Admin: 11/18/16 08:03 Dose: 5,000 units Ibuprofen (Motrin Tab) 600 mg PO TID PRN PRN Reason: Pain, Mild (1-3) Last Admin: 11/17/16 18:26 Dose: 600 mg Labetalol HCl (Normodyne) 300 mg PO TID [facility] Last Admin: 11/18/16 09:38 Dose: 300 mg Lorazepam (Ativan) 0.5 mg PO Q6H PRN PRN Reason: Anxiety Last Admin: 11/17/16 00:26 Dose: 0.5 mg Minoxidil (Minoxidil) 5 mg PO BID [facility] Last Admin: 11/18/16 09:37 Dose: 5 mg Nicotine (Nicoderm Cq) 1 patch TD DAILY [facility] Last Admin: 11/18/16 09:38 Dose: 1 patch Ondansetron HCl (Zofran Inj) 4 mg IVP Q8 PRN PRN Reason: Nausea/Vomiting Last Admin: 11/13/16 16:00 Dose: 4 mg Oxycodone/Acetaminophen (Percocet 5/325 Mg Tab) 1 tab PO Q6H PRN PRN Reason: Pain, severe (8-10) Stop: 11/21/16 06:46 Last Admin: 11/18/16 06:51 Dose: 1 tab - Labs Labs: 11/18/16 08:27 11/18/16 08:27 PT 11.9 SECONDS (9.7-12.2) 11/13/16 06:34 INR 1.1 11/13/16 06:34 APTT 27 SECONDS (21-34) D 11/13/16 06:34 Attending/Attestation - Attestation I have personally seen and examined this patient.: Yes I have fully participated in the care of the patient.: Yes I have reviewed all pertinent clinical information, including history, physical exam and plan: Yes Notes (Text): 11/18/16 10:43 Agree with resident note and findings
--- NOTE | 2016-11-16 07:42 | CP.PCM.PN ---
<Coral Warner - Last Filed: 11/16/16 20:34> Subjective - Date & Time of Evaluation Date of Evaluation: 11/16/16 Time of Evaluation: 08:00 - Subjective Subjective: PGY1-Medicine Note- Dr. Garcia's Service Patient seen and examined at bedside and in no acute distress. Patient anxious and eager to leave the hospital. Patient has some tenderness around permacath site. Patient denies chest pain, palpitations, shortness of breath, abdominal pain, nausea, vomiting, diarrhea, constipation. Objective - Vital Signs/Intake and Output Vital Signs (last 24 hours): Temp Pulse Resp BP Pulse Ox 97.8 F 83 20 127/68 95 11/16/16 00:19 11/16/16 00:19 11/16/16 00:19 11/16/16 00:19 11/16/16 00:19 - Medications Medications: Current Medications Amlodipine Besylate (Norvasc) 10 mg PO DAILY [facility] Last Admin: 11/15/16 10:10 Dose: 10 mg Aspirin (Ecotrin) 81 mg PO DAILY [facility] Last Admin: 11/15/16 14:40 Dose: 81 mg Clonidine HCl (Catapres) 0.1 mg PO BID [facility] Last Admin: 11/15/16 18:09 Dose: 0.1 mg Epoetin Glenn (Procrit) 10,000 unit IV MWF [facility] Last Admin: 11/14/16 10:15 Dose: 10,000 unit Escitalopram Oxalate (Lexapro) 5 mg PO DAILY [facility] Last Admin: 11/15/16 10:15 Dose: 5 mg Famotidine (Pepcid) 20 mg PO DAILY [facility] Last Admin: 11/15/16 10:10 Dose: 20 mg Ferric Sodium Gluconate Complex (Ferrlecit) 125 mg IVPB DAILY [facility] Stop: 11/22/16 13:16 Last Admin: 11/15/16 10:11 Dose: 125 mg Heparin Sodium (Porcine) (Heparin) 5,000 units SC Q8 [facility] Last Admin: 11/13/16 06:15 Dose: 5,000 units Ibuprofen (Motrin Tab) 600 mg PO TID PRN PRN Reason: Pain, moderate (4-7) Last Admin: 11/15/16 10:10 Dose: 600 mg Labetalol HCl (Normodyne) 300 mg PO TID [facility] Last Admin: 11/15/16 18:00 Dose: Not Given Lorazepam (Ativan) 0.5 mg PO Q6H PRN PRN Reason: Anxiety Last Admin: 11/15/16 03:07 Dose: 0.5 mg Minoxidil (Minoxidil) 5 mg PO BID [facility] Last Admin: 11/15/16 18:09 Dose: 5 mg Nicotine (Nicoderm Cq) 1 patch TD DAILY [facility] Last Admin: 11/15/16 10:15 Dose: 1 patch Ondansetron HCl (Zofran Inj) 4 mg IVP Q8 PRN PRN Reason: Nausea/Vomiting Last Admin: 11/13/16 16:00 Dose: 4 mg - Labs Labs: 11/14/16 06:45 11/14/16 06:45 PT 11.9 SECONDS (9.7-12.2) 11/13/16 06:34 INR 1.1 11/13/16 06:34 APTT 27 SECONDS (21-34) D 11/13/16 06:34 - Constitutional Appears: Well, Non-toxic, No Acute Distress - Head Exam Head Exam: ATRAUMATIC, NORMAL INSPECTION, NORMOCEPHALIC - Eye Exam Eye Exam: EOMI, Normal appearance, PERRL - ENT Exam ENT Exam: Mucous Membranes Moist, Normal Exam - Neck Exam Neck Exam: Full ROM, Normal Inspection. absent: Lymphadenopathy - Respiratory Exam Respiratory Exam: Clear to Ausculation Bilateral, NORMAL BREATHING PATTERN. absent: Rales, Rhonchi, Wheezes, Respiratory Distress, Stridor - Cardiovascular Exam Cardiovascular Exam: REGULAR RHYTHM, RRR, +S1, +S2. absent: Murmur - GI/Abdominal Exam GI & Abdominal Exam: Normal Bowel Sounds. absent: Distended, Firm, Guarding - Extremities Exam Extremities Exam: Full ROM, Normal Capillary Refill, Normal Inspection. absent : Joint Swelling, Pedal Edema - Back Exam Back Exam: NORMAL INSPECTION. absent: rash noted - Neurological Exam Neurological Exam: Alert, Awake, Oriented x3 - Psychiatric Exam Psychiatric exam: Anxious - Skin Skin Exam: Intact, Normal Color, Warm Assessment and Plan - Assessment and Plan (Free Text) Assessment: CHF - Chest X-ray (11/11/16): Slightly improved pulmonary edemal CHF - Chest X-ray (11/13/16): Interval placement of right sided dialysis catheter with distal tips at the distal SVC/cav oatrial junction. - Nicotine Patch 14mg/24hr daily - Cardiology Consult: Dr. Carvajal --> help appreciated - Aspirin 81mg PO daily - Amlodipine 10mg PO daily - Hydralazine 75mg PO Q8 - Labetalol 300mg PO TID - ECHO (11/09/16): The left systolic ventricular function is normal. There is moderately increased wall thickness. Transmitral doppler flow pattern is Grade III-reversible restrictive diastolic dysfunction. Moderately increased left atrial volume. Moderate pulmonary HTN. Left pleural effusion. Left atrial pressure is elevated. 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 Anemia: - H/H: 9.3/29.7 Renal Failure: - Patient to get peritoneal dialysis catheter placed 11/17 - Fistula Permacath performed 11/13/16 - Surgery Consult: Dr. Burgos --> help appreciated - BUN/Cr (11/14): 37/6.5; BUN/Cr (11/13): 27/4.4; BUN/Cr (11/12/16): 41/6.5; BUN/Cr (): 37/5.3 - Urine HCG: Negative - Urine Catch: multiple species, propbable contamination - Nephrology Consult: Dr. Jordan --> help appreciated - f/u Aldosterone - f/u Metanephrines - f/u Plamsa Renin - Epoetin Glenn 10,000 unit IV MWF - Renal Ultrasound (11/08/16): Medical renal disease. No hydronephrosis or nephrolithiasis - f/u SCL-70 antibody - f/u ANCA Hypoxia: - Blood culture (11/08/16): No growth - Zosyn 2.25gm in 50mls @100mls/hr IVPB (Started on 11/10/16): Discontinued 11/14/16 - Procalcitonin: 0.49 - HIV begative - M. Pneumoniae AB (IgG) + IgM: negative - C. Diff: negative - f/u anti streptolysin - Urine Catch: multiple species, propbable contamination - Naris: MRSA not detected Depression and Anxiety - Psychiatry Consult: Dr. Mckeon, help appreciated -11/15 Dr. Mckeon saw patient, no changes to be made continue medications - Escitalopram 5mg PO daily - Lorazepam 0.5mg PO q6h prn Prophylactic Measure -SCDs -Heparin 5000 u SC Q8 -Pepcid 20mg PO daily <Patric Garcia Jr. - Last Filed: 11/18/16 10:45> Objective - Vital Signs/Intake and Output Vital Signs (last 24 hours): Temp Pulse Resp BP Pulse Ox 98.2 F 73 20 118/72 100 11/18/16 08:18 11/18/16 08:18 11/18/16 08:18 11/18/16 08:18 11/18/16 08:18 - Medications Medications: Current Medications Amlodipine Besylate (Norvasc) 10 mg PO DAILY [facility] Last Admin: 11/18/16 09:37 Dose: 10 mg Aspirin (Ecotrin) 81 mg PO DAILY [facility] Last Admin: 11/18/16 09:37 Dose: 81 mg Calcium Acetate (Phoslo) 667 mg PO TIDCC [facility] Clonidine HCl (Catapres) 0.1 mg PO BID [facility] Last Admin: 11/18/16 09:37 Dose: 0.1 mg Epoetin Glenn (Procrit) 10,000 unit IV MWF [facility] Last Admin: 11/17/16 10:37 Dose: 10,000 unit Escitalopram Oxalate (Lexapro) 10 mg PO DAILY [facility] Last Admin: 11/18/16 09:37 Dose: 10 mg Famotidine (Pepcid) 20 mg PO DAILY [facility] Last Admin: 11/18/16 09:37 Dose: 20 mg Ferric Sodium Gluconate Complex (Ferrlecit) 125 mg IVPB DAILY [facility] Stop: 11/22/16 13:16 Last Admin: 11/18/16 09:36 Dose: 125 mg Heparin Sodium (Porcine) (Heparin) 5,000 units SC Q8 [facility] Last Admin: 11/18/16 08:03 Dose: 5,000 units Ibuprofen (Motrin Tab) 600 mg PO TID PRN PRN Reason: Pain, Mild (1-3) Last Admin: 11/17/16 18:26 Dose: 600 mg Labetalol HCl (Normodyne) 300 mg PO TID [facility] Last Admin: 11/18/16 09:38 Dose: 300 mg Lorazepam (Ativan) 0.5 mg PO Q6H PRN PRN Reason: Anxiety Last Admin: 11/17/16 00:26 Dose: 0.5 mg Minoxidil (Minoxidil) 5 mg PO BID [facility] Last Admin: 11/18/16 09:37 Dose: 5 mg Nicotine (Nicoderm Cq) 1 patch TD DAILY [facility] Last Admin: 11/18/16 09:38 Dose: 1 patch Ondansetron HCl (Zofran Inj) 4 mg IVP Q8 PRN PRN Reason: Nausea/Vomiting Last Admin: 11/13/16 16:00 Dose: 4 mg Oxycodone/Acetaminophen (Percocet 5/325 Mg Tab) 1 tab PO Q6H PRN PRN Reason: Pain, severe (8-10) Stop: 11/21/16 06:46 Last Admin: 11/18/16 06:51 Dose: 1 tab - Labs Labs: 11/18/16 08:27 11/18/16 08:27 PT 11.9 SECONDS (9.7-12.2) 11/13/16 06:34 INR 1.1 11/13/16 06:34 APTT 27 SECONDS (21-34) D 11/13/16 06:34 Attending/Attestation - Attestation I have personally seen and examined this patient.: Yes I have fully participated in the care of the patient.: Yes I have reviewed all pertinent clinical information, including history, physical exam and plan: Yes Notes (Text): 11/18/16 10:45 Agree with resident note and findings
[2016-11-16 08:10] LABS: BASO # 0.1 K/uL (0.0-0.2); BASO % 0.9 % (0.0-2.0); EOS # 0.3 K/uL (0.0-0.7); EOS % 2.2 % (0.0-4.0); HEMOGLOBIN 9.2 g/dL (11.0-16.0); LYMPH # 2.6 K/uL (1.0-4.3); LYMPH % 17.1 % (20.0-40.0); MEAN CELL VOLUME 75.5 fL (81.0-99.0); MEAN CORPUSCULAR HEMOGLOBIN 23.1 pg (27.0-31.0); MEAN CORPUSCULAR HGB CONC 30.6 g/dL (33.0-37.0); MEAN PLATELET VOLUME 7.4 fL (7.2-11.7); MONO # 0.9 K/uL (0.0-0.8); MONO % 5.7 % (0.0-10.0); NEUT # 11.2 K/uL (1.8-7.0); NEUT % 74.1 % (50.0-75.0); RBC 3.96 Mil/uL (3.80-5.20); RED CELL DISTRIBUTION WIDTH 23.8 % (11.5-14.5); WHITE BLOOD COUNT 15.1 K/uL (4.8-10.8)
[2016-11-16 08:33] LABS: ALBUMIN 3.5 g/dL (3.5-5.0)
[2016-11-16 08:36] LABS: ALB/GLOB RATIO 1.3 (1.0-2.1)
[2016-11-16 08:37] LABS: CALCIUM 9.4 mg/dl (8.6-10.4); MAGNESIUM 2.5 mg/dL (1.6-2.3)
[2016-11-16] MEDS ORDERED: Potassium Chloride 20 mEq ER Tab PO ONE (09:15)
[2016-11-16] MEDS: Ferric Sodium Gluconat Complex 62.5 mg/5 ml Vial IVPB SCH (10:05)
[2016-11-16] MEDS: Labetalol Hydrochloride 300 mg Tab PO SCH ×3 (10:06→18:00)
--- NOTE | 2016-11-16 12:11 | CP.PCM.PN ---
Subjective - Date & Time of Evaluation Date of Evaluation: 11/16/16 Time of Evaluation: 07:00 - Subjective Subjective: VASCULAR SURGERY PROGRESS NOTE FOR DR. ODELL Patient seen and examined at bedside. She had dialysis Thursday via the permacath without complications. She reports being sore at the surgical site but she is tolerating her diet. She denies nausea or vomiting. Patient is aware of NPO past midnight tonight for surgery tomorrow. Objective - Vital Signs/Intake and Output Vital Signs (last 24 hours): Temp Pulse Resp BP Pulse Ox 97.8 F 83 20 127/68 95 11/16/16 00:19 11/16/16 00:19 11/16/16 00:19 11/16/16 00:19 11/16/16 00:19 - Medications Medications: Current Medications Amlodipine Besylate (Norvasc) 10 mg PO DAILY [facility] Last Admin: 11/16/16 10:06 Dose: 10 mg Aspirin (Ecotrin) 81 mg PO DAILY [facility] Last Admin: 11/16/16 10:06 Dose: 81 mg Clonidine HCl (Catapres) 0.1 mg PO BID [facility] Last Admin: 11/16/16 10:06 Dose: 0.1 mg Epoetin Glenn (Procrit) 10,000 unit IV MWF [facility] Last Admin: 11/14/16 10:15 Dose: 10,000 unit Escitalopram Oxalate (Lexapro) 10 mg PO DAILY [facility] Famotidine (Pepcid) 20 mg PO DAILY [facility] Last Admin: 11/16/16 10:06 Dose: 20 mg Ferric Sodium Gluconate Complex (Ferrlecit) 125 mg IVPB DAILY [facility] Stop: 11/22/16 13:16 Last Admin: 11/16/16 10:05 Dose: 125 mg Heparin Sodium (Porcine) (Heparin) 5,000 units SC Q8 [facility] Last Admin: 11/13/16 06:15 Dose: 5,000 units Ibuprofen (Motrin Tab) 600 mg PO TID PRN PRN Reason: Pain, moderate (4-7) Last Admin: 11/15/16 10:10 Dose: 600 mg Labetalol HCl (Normodyne) 300 mg PO TID [facility] Last Admin: 11/16/16 10:06 Dose: 300 mg Lorazepam (Ativan) 0.5 mg PO Q6H PRN PRN Reason: Anxiety Last Admin: 11/15/16 03:07 Dose: 0.5 mg Minoxidil (Minoxidil) 5 mg PO BID [facility] Last Admin: 11/16/16 10:06 Dose: 5 mg Nicotine (Nicoderm Cq) 1 patch TD DAILY [facility] Last Admin: 11/16/16 10:05 Dose: 1 patch Ondansetron HCl (Zofran Inj) 4 mg IVP Q8 PRN PRN Reason: Nausea/Vomiting Last Admin: 11/13/16 16:00 Dose: 4 mg - Labs Labs: 11/16/16 07:56 11/16/16 07:56 PT 11.9 SECONDS (9.7-12.2) 11/13/16 06:34 INR 1.1 11/13/16 06:34 APTT 27 SECONDS (21-34) D 11/13/16 06:34 - Constitutional Appears: Non-toxic, No Acute Distress - Neck Exam Additional comments: Right IJ Permacath in place with dressing clean/dry/intact Steri strip over IJ insertion site - Respiratory Exam Respiratory Exam: NORMAL BREATHING PATTERN. absent: Respiratory Distress - Cardiovascular Exam Cardiovascular Exam: +S1, +S2 - Neurological Exam Neurological Exam: Alert, Awake - Psychiatric Exam Psychiatric exam: Normal Affect, Normal Mood - Skin Skin Exam: Dry, Normal Color Assessment and Plan - Assessment and Plan (Free Text) Assessment: 36yo F with AMPARO requiring hemodialysis s/p Right IJ Permacath placement POD#3 - Peritoneal Dialysis catheter placement tomorrow 7/10 - NPO past midnight - Heparin still held - Discussed plan with Dr. Loretta Tello PGY-3
--- NOTE | 2016-11-17 08:04 | CP.PCM.PN ---
Subjective - Date & Time of Evaluation Date of Evaluation: 11/17/16 Time of Evaluation: 08:15 - Subjective Subjective: Cardiology progress note for Dr. Carvajal Patient seen and examined at bedside. Nursing reports no acute events overnight and she had no complaints this AM. She reports her anxiety has been well managed and her blood pressure has been controlled. Patient has been NPO overnight for peritoneal dialysis cath placement this afternoon. She denied headache, dizziness, chest pain, palpitations, SOB, cough, abd pain, nausea, vomiting, bowel/bladder complaints, pain/swelling in her legs bilaterally. Objective - Vital Signs/Intake and Output Vital Signs (last 24 hours): Temp Pulse Resp BP Pulse Ox 98.2 F 89 18 116/65 96 11/17/16 00:00 11/17/16 00:00 11/17/16 00:00 11/17/16 00:00 11/17/16 00:00 Intake and Output: 11/17/16 11/17/16 06:59 18:59 Intake Total 500 Balance 500 - Medications Medications: Current Medications Amlodipine Besylate (Norvasc) 10 mg PO DAILY [facility] Last Admin: 11/16/16 10:06 Dose: 10 mg Aspirin (Ecotrin) 81 mg PO DAILY [facility] Last Admin: 11/16/16 10:06 Dose: 81 mg Clonidine HCl (Catapres) 0.1 mg PO BID [facility] Last Admin: 11/16/16 18:00 Dose: Not Given Epoetin Glenn (Procrit) 10,000 unit IV MWF [facility] Last Admin: 11/14/16 10:15 Dose: 10,000 unit Escitalopram Oxalate (Lexapro) 10 mg PO DAILY [facility] Last Admin: 11/16/16 11:30 Dose: Not Given Famotidine (Pepcid) 20 mg PO DAILY [facility] Last Admin: 11/16/16 10:06 Dose: 20 mg Ferric Sodium Gluconate Complex (Ferrlecit) 125 mg IVPB DAILY [facility] Stop: 11/22/16 13:16 Last Admin: 11/16/16 10:05 Dose: 125 mg Heparin Sodium (Porcine) (Heparin) 5,000 units SC Q8 [facility] Last Admin: 11/13/16 06:15 Dose: 5,000 units Ibuprofen (Motrin Tab) 600 mg PO TID PRN PRN Reason: Pain, moderate (4-7) Last Admin: 11/15/16 10:10 Dose: 600 mg Labetalol HCl (Normodyne) 300 mg PO TID [facility] Last Admin: 11/16/16 18:00 Dose: Not Given Lorazepam (Ativan) 0.5 mg PO Q6H PRN PRN Reason: Anxiety Last Admin: 11/17/16 00:26 Dose: 0.5 mg Minoxidil (Minoxidil) 5 mg PO BID [facility] Last Admin: 11/16/16 19:02 Dose: 5 mg Nicotine (Nicoderm Cq) 1 patch TD DAILY [facility] Last Admin: 11/16/16 10:05 Dose: 1 patch Ondansetron HCl (Zofran Inj) 4 mg IVP Q8 PRN PRN Reason: Nausea/Vomiting Last Admin: 11/13/16 16:00 Dose: 4 mg - Labs Labs: 11/16/16 07:56 11/16/16 07:56 PT 11.9 SECONDS (9.7-12.2) 11/13/16 06:34 INR 1.1 11/13/16 06:34 APTT 27 SECONDS (21-34) D 11/13/16 06:34 - Constitutional Appears: Non-toxic, No Acute Distress - Head Exam Head Exam: ATRAUMATIC, NORMAL INSPECTION, NORMOCEPHALIC - Eye Exam Eye Exam: EOMI, Normal appearance. absent: Conjunctival injection, Scleral icterus Pupil Exam: NORMAL ACCOMODATION - ENT Exam ENT Exam: Mucous Membranes Moist - Neck Exam Neck Exam: Full ROM - Respiratory Exam Respiratory Exam: Clear to Ausculation Bilateral, NORMAL BREATHING PATTERN. absent: Accessory Muscle Use, Rales, Rhonchi, Wheezes, Respiratory Distress - Cardiovascular Exam Cardiovascular Exam: REGULAR RHYTHM, +S1, +S2. absent: Murmur - GI/Abdominal Exam GI & Abdominal Exam: Soft, Normal Bowel Sounds. absent: Tenderness - Extremities Exam Extremities Exam: Normal Inspection - Neurological Exam Neurological Exam: Alert, Awake, Oriented x3 - Psychiatric Exam Psychiatric exam: Normal Affect, Normal Mood - Skin Skin Exam: Dry, Intact, Normal Color, Warm Assessment and Plan - Assessment and Plan (Free Text) Assessment: 36 F PMHx HTN admitted with acute heart failure, acute renal insufficiency, acute pulmonary edema, and severe hypokalemia Plan: Diastolic CHF -BP is well controlled -Echo 11/10 LV systolic ventricular function is normal; moderately increased wall thickness; Grade III reversible restrictive diastolic dysfunction; Moderately increased L atrial volume; moderate pulmonary HTN; L pleural effusion; LA pressure is elevated; consider restrictive cardiomyopathy -CXR 11/11: improved CHF and pulmonary edema -proBNP [id number] on admission -Norvasc 10mg po daily -Clonidine 0.1mg po bid -Labetalol 300mg po tid -ASA 81mg po daily -In lieu of normal EF, improving CHF, normal sinus on EKG and no chest pain, the benefits outweigh the risks and patient can proceed with peritoneal dialysis catheter insertion under general anesthesia today 11/[address] Wei Crawley PGY2
[2016-11-17 08:55] LABS: BASO # 0.1 K/uL (0.0-0.2); BASO % 0.6 % (0.0-2.0); EOS # 0.3 K/uL (0.0-0.7); EOS % 2.3 % (0.0-4.0); HEMOGLOBIN 9.2 g/dL (11.0-16.0); LYMPH % 14.3 % (20.0-40.0); MEAN CELL VOLUME 76.1 fL (81.0-99.0); MEAN CORPUSCULAR HEMOGLOBIN 23.3 pg (27.0-31.0); MEAN CORPUSCULAR HGB CONC 30.6 g/dL (33.0-37.0); MEAN PLATELET VOLUME 7.5 fL (7.2-11.7); MONO # 0.7 K/uL (0.0-0.8); MONO % 5.1 % (0.0-10.0); NEUT # 10.8 K/uL (1.8-7.0); NEUT % 77.7 % (50.0-75.0); RBC 3.96 Mil/uL (3.80-5.20); RED CELL DISTRIBUTION WIDTH 22.7 % (11.5-14.5); WHITE BLOOD COUNT 13.9 K/uL (4.8-10.8)
[2016-11-17 09:13] LABS: ALBUMIN 3.5 g/dL (3.5-5.0)
[2016-11-17 09:17] LABS: ALB/GLOB RATIO 1.3 (1.0-2.1); CALCIUM 9.4 mg/dl (8.6-10.4); MAGNESIUM 2.5 mg/dL (1.6-2.3)
--- NOTE | 2016-11-17 09:37 | CP.PCM.PN ---
<Coral Warner - Last Filed: 11/17/16 16:11> Subjective - Date & Time of Evaluation Date of Evaluation: 11/17/16 Time of Evaluation: 07:30 - Subjective Subjective: PGY1 - Medicine Note- Dr. Garcia's Service Patient seen and examined at [facility] today and in no acute distress. Patient says she no longer has pain around the permacath site. Patient cleared for surgery by cardiology. To go for periotoneal dialysis catheter placement today. HD this am. Patient denies headache, shortness of breath, chest pain, palpitations, abdominal pain, nausea, vomiting, constipation or diarrhea. Objective - Vital Signs/Intake and Output Vital Signs (last 24 hours): Temp Pulse Resp BP Pulse Ox 97.9 F 96 H 20 160/83 H 98 11/17/16 07:00 11/17/16 07:00 11/17/16 07:00 11/17/16 07:00 11/17/16 07:00 Intake and Output: 11/17/16 11/17/16 06:59 18:59 Intake Total 500 Balance 500 - Medications Medications: Current Medications Amlodipine Besylate (Norvasc) 10 mg PO DAILY [facility] Last Admin: 11/16/16 10:06 Dose: 10 mg Aspirin (Ecotrin) 81 mg PO DAILY [facility] Last Admin: 11/16/16 10:06 Dose: 81 mg Clonidine HCl (Catapres) 0.1 mg PO BID [facility] Last Admin: 11/16/16 18:00 Dose: Not Given Epoetin Glenn (Procrit) 10,000 unit IV MWF [facility] Last Admin: 11/14/16 10:15 Dose: 10,000 unit Escitalopram Oxalate (Lexapro) 10 mg PO DAILY [facility] Last Admin: 11/16/16 11:30 Dose: Not Given Famotidine (Pepcid) 20 mg PO DAILY [facility] Last Admin: 11/16/16 10:06 Dose: 20 mg Ferric Sodium Gluconate Complex (Ferrlecit) 125 mg IVPB DAILY [facility] Stop: 11/22/16 13:16 Last Admin: 11/16/16 10:05 Dose: 125 mg Heparin Sodium (Porcine) (Heparin) 5,000 units SC Q8 [facility] Last Admin: 11/13/16 06:15 Dose: 5,000 units Ibuprofen (Motrin Tab) 600 mg PO TID PRN PRN Reason: Pain, moderate (4-7) Last Admin: 11/15/16 10:10 Dose: 600 mg Labetalol HCl (Normodyne) 300 mg PO TID [facility] Last Admin: 11/16/16 18:00 Dose: Not Given Lorazepam (Ativan) 0.5 mg PO Q6H PRN PRN Reason: Anxiety Last Admin: 11/17/16 00:26 Dose: 0.5 mg Minoxidil (Minoxidil) 5 mg PO BID [facility] Last Admin: 11/16/16 19:02 Dose: 5 mg Nicotine (Nicoderm Cq) 1 patch TD DAILY [facility] Last Admin: 11/16/16 10:05 Dose: 1 patch Ondansetron HCl (Zofran Inj) 4 mg IVP Q8 PRN PRN Reason: Nausea/Vomiting Last Admin: 11/13/16 16:00 Dose: 4 mg - Labs Labs: 11/17/16 08:43 11/17/16 08:43 PT 11.9 SECONDS (9.7-12.2) 11/13/16 06:34 INR 1.1 11/13/16 06:34 APTT 27 SECONDS (21-34) D 11/13/16 06:34 - Constitutional Appears: Well, Non-toxic, No Acute Distress - Head Exam Head Exam: ATRAUMATIC, NORMAL INSPECTION, NORMOCEPHALIC - Eye Exam Eye Exam: EOMI, Normal appearance, PERRL - ENT Exam ENT Exam: Mucous Membranes Moist, Normal Exam - Neck Exam Neck Exam: Full ROM, Normal Inspection. absent: Lymphadenopathy Additional comments: right permacath with dressing dry, clean, intact - Respiratory Exam Respiratory Exam: Clear to Ausculation Bilateral, NORMAL BREATHING PATTERN. absent: Rhonchi, Wheezes, Respiratory Distress, Stridor - Cardiovascular Exam Cardiovascular Exam: REGULAR RHYTHM, RRR, +S1, +S2. absent: Gallop, Rubs, Murmur - GI/Abdominal Exam GI & Abdominal Exam: Soft, Normal Bowel Sounds. absent: Distended, Firm, Guarding, Rigid, Tenderness - Extremities Exam Extremities Exam: Full ROM, Normal Inspection. absent: Pedal Edema, Tenderness - Back Exam Back Exam: NORMAL INSPECTION - Neurological Exam Neurological Exam: Alert, Awake - Psychiatric Exam Psychiatric exam: Normal Affect, Normal Mood - Skin Skin Exam: Intact, Normal Color, Warm Assessment and Plan - Assessment and Plan (Free Text) Assessment: CHF - Chest X-ray (11/11/16): Slightly improved pulmonary edemal CHF - Chest X-ray (11/13/16): Interval placement of right sided dialysis catheter with distal tips at the distal SVC/cav oatrial junction. - Nicotine Patch 14mg/24hr daily - Cardiology Consult: Dr. Carvajal --> help appreciated - Aspirin 81mg PO daily - Amlodipine 10mg PO daily - Hydralazine 75mg PO Q8 - Labetalol 300mg PO TID - ECHO (11/09/16): The left systolic ventricular function is normal. There is moderately increased wall thickness. Transmitral doppler flow pattern is Grade III-reversible restrictive diastolic dysfunction. Moderately increased left atrial volume. Moderate pulmonary HTN. Left pleural effusion. Left atrial pressure is elevated. 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 Anemia: - H/H: 9.3/29.7 Renal Failure: - Patient to get peritoneal dialysis catheter placed today 11/17 -HD via right IJ permacath this am 11/17 - Fistula Permacath performed 11/13/16 - Surgery Consult: Dr. Burgos --> help appreciated - BUN/Cr (11/14): 37/6.5; BUN/Cr (11/13): 27/4.4; BUN/Cr (11/12/16): 41/6.5; BUN/Cr (): 37/5.3 - Urine HCG: Negative - Urine Catch: multiple species, propbable contamination - Nephrology Consult: Dr. Jordan --> help appreciated - f/u Aldosterone - f/u Metanephrines - f/u Plamsa Renin - Epoetin Glenn 10,000 unit IV MWF - Renal Ultrasound (11/08/16): Medical renal disease. No hydronephrosis or nephrolithiasis - f/u SCL-70 antibody - f/u ANCA Hypoxia: - Blood culture (11/08/16): No growth - Zosyn 2.25gm in 50mls @100mls/hr IVPB (Started on 11/10/16): Discontinued 11/14/16 - Procalcitonin: 0.49 - HIV begative - M. Pneumoniae AB (IgG) + IgM: negative - C. Diff: negative - f/u anti streptolysin - Urine Catch: multiple species, propbable contamination - Naris: MRSA not detected Depression and Anxiety - Psychiatry Consult: Dr. Mckeon, help appreciated -11/15 Dr. Mckeon saw patient, no changes to be made continue medications - Escitalopram 5mg PO daily - Lorazepam 0.5mg PO q6h prn Prophylactic Measure -SCDs -Heparin 5000 u SC Q8 -Pepcid 20mg PO daily <Patric Garcia Jr. - Last Filed: 11/18/16 10:48> Objective - Vital Signs/Intake and Output Vital Signs (last 24 hours): Temp Pulse Resp BP Pulse Ox 98.2 F 73 20 118/72 100 11/18/16 08:18 11/18/16 08:18 11/18/16 08:18 11/18/16 08:18 11/18/16 08:18 - Medications Medications: Current Medications Amlodipine Besylate (Norvasc) 10 mg PO DAILY [facility] Last Admin: 11/18/16 09:37 Dose: 10 mg Aspirin (Ecotrin) 81 mg PO DAILY [facility] Last Admin: 11/18/16 09:37 Dose: 81 mg Calcium Acetate (Phoslo) 667 mg PO TIDCC [facility] Clonidine HCl (Catapres) 0.1 mg PO BID [facility] Last Admin: 11/18/16 09:37 Dose: 0.1 mg Epoetin Glenn (Procrit) 10,000 unit IV MWF [facility] Last Admin: 11/17/16 10:37 Dose: 10,000 unit Escitalopram Oxalate (Lexapro) 10 mg PO DAILY [facility] Last Admin: 11/18/16 09:37 Dose: 10 mg Famotidine (Pepcid) 20 mg PO DAILY [facility] Last Admin: 11/18/16 09:37 Dose: 20 mg Ferric Sodium Gluconate Complex (Ferrlecit) 125 mg IVPB DAILY [facility] Stop: 11/22/16 13:16 Last Admin: 11/18/16 09:36 Dose: 125 mg Heparin Sodium (Porcine) (Heparin) 5,000 units SC Q8 [facility] Last Admin: 11/18/16 08:03 Dose: 5,000 units Ibuprofen (Motrin Tab) 600 mg PO TID PRN PRN Reason: Pain, Mild (1-3) Last Admin: 11/17/16 18:26 Dose: 600 mg Labetalol HCl (Normodyne) 300 mg PO TID [facility] Last Admin: 11/18/16 09:38 Dose: 300 mg Lorazepam (Ativan) 0.5 mg PO Q6H PRN PRN Reason: Anxiety Last Admin: 11/17/16 00:26 Dose: 0.5 mg Minoxidil (Minoxidil) 5 mg PO BID [facility] Last Admin: 11/18/16 09:37 Dose: 5 mg Nicotine (Nicoderm Cq) 1 patch TD DAILY [facility] Last Admin: 11/18/16 09:38 Dose: 1 patch Ondansetron HCl (Zofran Inj) 4 mg IVP Q8 PRN PRN Reason: Nausea/Vomiting Last Admin: 11/13/16 16:00 Dose: 4 mg Oxycodone/Acetaminophen (Percocet 5/325 Mg Tab) 1 tab PO Q6H PRN PRN Reason: Pain, severe (8-10) Stop: 11/21/16 06:46 Last Admin: 11/18/16 06:51 Dose: 1 tab - Labs Labs: 11/18/16 08:27 11/18/16 08:27 PT 11.9 SECONDS (9.7-12.2) 11/13/16 06:34 INR 1.1 11/13/16 06:34 APTT 27 SECONDS (21-34) D 11/13/16 06:34 Attending/Attestation - Attestation I have personally seen and examined this patient.: Yes I have fully participated in the care of the patient.: Yes I have reviewed all pertinent clinical information, including history, physical exam and plan: Yes Notes (Text): 11/18/16 10:48 Agree with resident note and findings
[2016-11-17] MEDS: Ferric Sodium Gluconat Complex 62.5 mg/5 ml Vial IVPB SCH (10:36)
[2016-11-17] MEDS: Epoetin Alfa 10,000 unit/ml Dialysis IV SCH (10:37)
--- NOTE | 2016-11-17 11:14 | CP.PCM.PN ---
Subjective - Date & Time of Evaluation Date of Evaluation: 11/17/16 Time of Evaluation: 11:11 - Subjective Subjective: Seen on dialysis Feeling better Phos remains elevated Creat still high- to stop NSAIDs For PD cath today Objective - Vital Signs/Intake and Output Vital Signs (last 24 hours): Temp Pulse Resp BP Pulse Ox 97.9 F 96 H 20 160/83 H 98 11/17/16 07:00 11/17/16 07:00 11/17/16 07:00 11/17/16 07:00 11/17/16 07:00 Intake and Output: 11/17/16 11/17/16 06:59 18:59 Intake Total 500 Balance 500 - Medications Medications: Current Medications Amlodipine Besylate (Norvasc) 10 mg PO DAILY [facility] Last Admin: 11/16/16 10:06 Dose: 10 mg Aspirin (Ecotrin) 81 mg PO DAILY [facility] Last Admin: 11/16/16 10:06 Dose: 81 mg Clonidine HCl (Catapres) 0.1 mg PO BID [facility] Last Admin: 11/16/16 18:00 Dose: Not Given Epoetin Glenn (Procrit) 10,000 unit IV MWF [facility] Last Admin: 11/17/16 10:37 Dose: 10,000 unit Escitalopram Oxalate (Lexapro) 10 mg PO DAILY [facility] Last Admin: 11/16/16 11:30 Dose: Not Given Famotidine (Pepcid) 20 mg PO DAILY [facility] Last Admin: 11/16/16 10:06 Dose: 20 mg Ferric Sodium Gluconate Complex (Ferrlecit) 125 mg IVPB DAILY [facility] Stop: 11/22/16 13:16 Last Admin: 11/17/16 10:36 Dose: 125 mg Heparin Sodium (Porcine) (Heparin) 5,000 units SC Q8 [facility] Last Admin: 11/13/16 06:15 Dose: 5,000 units Ibuprofen (Motrin Tab) 600 mg PO TID PRN PRN Reason: Pain, moderate (4-7) Last Admin: 11/15/16 10:10 Dose: 600 mg Labetalol HCl (Normodyne) 300 mg PO TID [facility] Last Admin: 11/16/16 18:00 Dose: Not Given Lorazepam (Ativan) 0.5 mg PO Q6H PRN PRN Reason: Anxiety Last Admin: 11/17/16 00:26 Dose: 0.5 mg Minoxidil (Minoxidil) 5 mg PO BID [facility] Last Admin: 11/16/16 19:02 Dose: 5 mg Nicotine (Nicoderm Cq) 1 patch TD DAILY [facility] Last Admin: 11/16/16 10:05 Dose: 1 patch Ondansetron HCl (Zofran Inj) 4 mg IVP Q8 PRN PRN Reason: Nausea/Vomiting Last Admin: 11/13/16 16:00 Dose: 4 mg - Labs Labs: 11/17/16 08:43 11/17/16 08:43 PT 11.9 SECONDS (9.7-12.2) 11/13/16 06:34 INR 1.1 11/13/16 06:34 APTT 27 SECONDS (21-34) D 11/13/16 06:34 - Constitutional Appears: No Acute Distress, Chronically Ill - Head Exam Head Exam: ATRAUMATIC, NORMAL INSPECTION - Eye Exam Eye Exam: EOMI, Normal appearance - Neck Exam Neck Exam: Normal Inspection. absent: Tenderness - Respiratory Exam Respiratory Exam: Clear to Ausculation Bilateral, NORMAL BREATHING PATTERN - Cardiovascular Exam Cardiovascular Exam: REGULAR RHYTHM, +S1 - GI/Abdominal Exam GI & Abdominal Exam: Soft. absent: Tenderness - Extremities Exam Extremities Exam: Normal Inspection. absent: Tenderness - Neurological Exam Neurological Exam: Awake, CN II-XII Intact - Skin Skin Exam: Dry, Warm Assessment and Plan (1) Proteinuria Status: Acute (2) NSTEMI (non-ST elevated myocardial infarction) Status: Acute (3) AMPARO (acute kidney injury) Status: Acute (4) CHF (congestive heart failure) Status: Acute (5) Hypokalemia Status: Acute (6) Hypertensive emergency Status: Acute (7) CKD (chronic kidney disease) stage 5, GFR less than 15 ml/min Status: Acute (8) CKD stage 5 secondary to hypertension Status: Acute (9) ESRD (end stage renal disease) Status: Acute - Assessment and Plan (Free Text) Plan: Add increased phos binders PD cath today- then flush cath Will have home PD training- to be arranged Monitor BP- has been labile
[2016-11-17] MEDS ORDERED: Lactated Ringer's 1,000 ML IV ONE (14:10)
[2016-11-17] MEDS ORDERED: Propofol 10 mg/ml Inj (20 ML) ONE (14:17)
[2016-11-17] MEDS ORDERED: Midazolam 2 MG/2 ML VIAL ONE (14:18)
[2016-11-17] MEDS: ceFAZolin IV 2 gm in Dextrose 1 GM/50 ML BAG IVPB ONE ×2 (14:18→14:20)
[2016-11-17] MEDS ORDERED: HYDROmorphone 0.5 mg/0.5 ml ISec IVP PRN (14:55)
[2016-11-17] MEDS ORDERED: Metoprolol 1 mg/ml Inj IVP ONE (14:55)
[2016-11-17] MEDS ORDERED: Morphine 4 MG/ML VIAL ONE (15:08)
--- NOTE | 2016-11-17 15:24 | PCM.SURG1 ---
Surgeon's Initial Post Op Note - Surgeon's Notes Surgeon: Dr. Burgos Imaging Technologist: Sallie Key, PGY2; Andrew Howell, OMS3 Pre-Operative Diagnosis: ESRD Operative Findings: See full operative report Post-Operative Diagnosis: Same Operation Performed: Laparoscopic insertion of peritoneal dialysis catheter Specimen/Specimens Removed: None Estimated Blood Loss: EBL {In ML}: 5 Date of Surgery/Procedure: 11/17/16 Time of Surgery/Procedure: 14:00
[2016-11-17] MEDS ORDERED: Oxycodone/Acetaminophen 5/325 mg Tab PO PRN (15:26)
[2016-11-17] MEDS: HYDROmorphone 0.5 mg/0.5 ml ISec IVP PRN ×2 (15:47→16:04)
[2016-11-17] MEDS: Labetalol Hydrochloride 300 mg Tab PO SCH ×2 (18:22)
[2016-11-18] MEDS: Oxycodone/Acetaminophen 5/325 mg Tab PO PRN ×3 (06:51→22:08)
--- NOTE | 2016-11-18 07:48 | CP.PCM.PN ---
<Coral Warner - Last Filed: 11/18/16 13:12> Subjective - Date & Time of Evaluation Date of Evaluation: 11/18/16 Time of Evaluation: 07:00 - Subjective Subjective: PGY1- Medicine Note- Dr. Garcia's Service Patient is seen and visited at bedside today with a complaint of intermittent LLQ abdominal pain at her peritoneal dialysis catheter surgical site that was placed yesterday. Described as pressure, 6/10, nonradiating, with exacerbating factors of movement and cough and remitting factors include pain medication. Last night the patient experienced shortness of breath with feeling hot, tingling in bilateral arms, denied chest pain, diaphoresis. Patient states the nurse took her vital signs, treated with oxygen, and let her know she was stable and patient was then able to relax, mentioned possible anxiety. Last night patient experienced a 3/10 headache confined to her anterior forehead that was nonradiating, lasted a couple of minutes, and remitted after falling sleep. Patient has an appetite, urinated after surgery, has not had a bowel movement after surgery. Denies chest pain, shortness of breath, headache, dizziness, changes in vision and hearing, blurry vision, tinnitus, congestion, leg cramps and swelling, dysuria. Denies any other complaints. Objective - Vital Signs/Intake and Output Vital Signs (last 24 hours): Temp Pulse Resp BP Pulse Ox 98.2 F 77 18 105/62 99 11/17/16 23:12 11/17/16 23:12 11/17/16 23:12 11/17/16 23:12 11/17/16 23:12 - Medications Medications: Current Medications Amlodipine Besylate (Norvasc) 10 mg PO DAILY [facility] Last Admin: 11/17/16 18:21 Dose: 10 mg Aspirin (Ecotrin) 81 mg PO DAILY [facility] Last Admin: 11/17/16 18:27 Dose: 81 mg Calcium Acetate (Phoslo) 667 mg PO TIDCC [facility] Clonidine HCl (Catapres) 0.1 mg PO BID [facility] Last Admin: 11/17/16 18:21 Dose: 0.1 mg Epoetin Glenn (Procrit) 10,000 unit IV MWF [facility] Last Admin: 11/17/16 10:37 Dose: 10,000 unit Escitalopram Oxalate (Lexapro) 10 mg PO DAILY [facility] Last Admin: 11/17/16 18:19 Dose: 10 mg Famotidine (Pepcid) 20 mg PO DAILY [facility] Last Admin: 11/17/16 18:20 Dose: 20 mg Ferric Sodium Gluconate Complex (Ferrlecit) 125 mg IVPB DAILY [facility] Stop: 11/22/16 13:16 Last Admin: 11/17/16 10:36 Dose: 125 mg Heparin Sodium (Porcine) (Heparin) 5,000 units SC Q8 [facility] Last Admin: 11/17/16 21:33 Dose: Not Given Ibuprofen (Motrin Tab) 600 mg PO TID PRN PRN Reason: Pain, Mild (1-3) Last Admin: 11/17/16 18:26 Dose: 600 mg Labetalol HCl (Normodyne) 300 mg PO TID [facility] Last Admin: 11/17/16 18:22 Dose: 300 mg Lorazepam (Ativan) 0.5 mg PO Q6H PRN PRN Reason: Anxiety Last Admin: 11/17/16 00:26 Dose: 0.5 mg Minoxidil (Minoxidil) 5 mg PO BID [facility] Last Admin: 11/17/16 18:20 Dose: 5 mg Nicotine (Nicoderm Cq) 1 patch TD DAILY [facility] Last Admin: 11/17/16 18:23 Dose: 1 patch Ondansetron HCl (Zofran Inj) 4 mg IVP Q8 PRN PRN Reason: Nausea/Vomiting Last Admin: 11/13/16 16:00 Dose: 4 mg Oxycodone/Acetaminophen (Percocet 5/325 Mg Tab) 1 tab PO Q6H PRN PRN Reason: Pain, severe (8-10) Stop: 11/21/16 06:46 Last Admin: 11/18/16 06:51 Dose: 1 tab - Labs Labs: 11/17/16 08:43 11/17/16 08:43 PT 11.9 SECONDS (9.7-12.2) 11/13/16 06:34 INR 1.1 11/13/16 06:34 APTT 27 SECONDS (21-34) D 11/13/16 06:34 - Constitutional Appears: Well, Non-toxic, No Acute Distress - Head Exam Head Exam: ATRAUMATIC, NORMAL INSPECTION, NORMOCEPHALIC - Eye Exam Eye Exam: EOMI, Normal appearance, PERRL - ENT Exam ENT Exam: Mucous Membranes Moist, Normal Exam - Neck Exam Neck Exam: Full ROM. absent: Tenderness Additional comments: right IJ permacath covered with dressing that is dry, clean, intact - Respiratory Exam Respiratory Exam: Clear to Ausculation Bilateral, NORMAL BREATHING PATTERN. absent: Rales, Rhonchi, Wheezes, Respiratory Distress, Stridor - Cardiovascular Exam Cardiovascular Exam: REGULAR RHYTHM, RRR. absent: Murmur - GI/Abdominal Exam GI & Abdominal Exam: Distended, Soft, Tenderness, Normal Bowel Sounds. absent: Firm, Rigid Additional comments: surgical sites covered with clean, dry, intact dressing some ecchymosis on lower abdomen - Extremities Exam Extremities Exam: Full ROM, Normal Inspection. absent: Pedal Edema, Tenderness - Back Exam Back Exam: NORMAL INSPECTION. absent: rash noted - Neurological Exam Neurological Exam: Alert, Awake, Oriented x3 - Psychiatric Exam Psychiatric exam: Normal Affect, Normal Mood - Skin Skin Exam: Intact, Normal Color, Warm Assessment and Plan - Assessment and Plan (Free Text) Assessment: CHF - Chest X-ray (11/11/16): Slightly improved pulmonary edemal CHF - Chest X-ray (11/13/16): Interval placement of right sided dialysis catheter with distal tips at the distal SVC/cav oatrial junction. - Nicotine Patch 14mg/24hr daily - Cardiology Consult: Dr. Carvajal signed off on 11/18 - Aspirin 81mg PO daily - Amlodipine 10mg PO daily - Hydralazine 75mg PO Q8 - Labetalol 300mg PO TID - ECHO (11/09/16): The left systolic ventricular function is normal. There is moderately increased wall thickness. Transmitral doppler flow pattern is Grade III-reversible restrictive diastolic dysfunction. Moderately increased left atrial volume. Moderate pulmonary HTN. Left pleural effusion. Left atrial pressure is elevated. 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 Anemia: - H/H: 9.2/29.8 on 11/18 Renal Failure: - f/u Dr. Jordan's recommendations - Dr. Burgos performed laparascopic insertion of peritoneal dialysis catheter on 11/17 -HD via right IJ permacath this am 11/13 - Fistula Permacath performed 11/13/16 - Surgery Consult: Dr. Burgos, help appreciated - BUN/Cr (11/14): 37/6.5; BUN/Cr (11/13): 27/4.4; BUN/Cr (11/12/16): 41/6.5; BUN/Cr (): 37/5.3 - Urine HCG: Negative - Urine Catch: multiple species, propbable contamination - Nephrology Consult: Dr. Jordan --> help appreciated - f/u Aldosterone - f/u Metanephrines - f/u Plamsa Renin - Epoetin Glenn 10,000 unit IV MWF - Renal Ultrasound (11/08/16): Medical renal disease. No hydronephrosis or nephrolithiasis - f/u SCL-70 antibody - f/u ANCA Hypoxia: - Blood culture (11/08/16): No growth - Zosyn 2.25gm in 50mls @100mls/hr IVPB (Started on 11/10/16): Discontinued 11/14/16 - Procalcitonin: 0.49 - HIV begative - M. Pneumoniae AB (IgG) + IgM: negative - C. Diff: negative - f/u anti streptolysin - Urine Catch: multiple species, propbable contamination - Naris: MRSA not detected Depression and Anxiety - Psychiatry Consult: Dr. Mckeon, help appreciated -11/15 Dr. Mckeon saw patient, no changes to be made continue medications - Escitalopram 5mg PO daily - Lorazepam 0.5mg PO q6h prn Prophylactic Measure -SCDs -Heparin 5000 u SC Q8 -Pepcid 20mg PO daily <Patric Garcia Jr. - Last Filed: 11/22/16 10:23> Objective - Vital Signs/Intake and Output Vital Signs (last 24 hours): Temp Pulse Resp BP Pulse Ox 100.0 F H 83 20 133/79 96 11/19/16 16:00 11/19/16 16:00 11/19/16 16:00 11/19/16 16:00 11/19/16 16:00 - Labs Labs: 11/19/16 07:14 11/19/16 07:14 PT 11.9 SECONDS (9.7-12.2) 11/13/16 06:34 INR 1.1 11/13/16 06:34 APTT 27 SECONDS (21-34) D 11/13/16 06:34 Attending/Attestation - Attestation I have personally seen and examined this patient.: Yes I have fully participated in the care of the patient.: Yes I have reviewed all pertinent clinical information, including history, physical exam and plan: Yes Notes (Text): 11/22/16 10:22 Agree with resident note and findings
--- NOTE | 2016-11-18 07:52 | CP.PCM.PN ---
Subjective - Date & Time of Evaluation Date of Evaluation: 11/18/16 Time of Evaluation: :17 - Subjective Subjective: Cardiology progress note for Dr. Carvajal Patient seen and examined at bedside. POD#1 peritoneal dialysis catheter insertion. Patient tolerated procedure well- catheter to not be used until cleared by vascular surgeon Dr. Burgos. No acute events overnight. Patient's BP has been well controlled. She did complain of some anxiety overnight but feels better this AM. Patient denied headache, dizziness, chest pain, palpitations, SOB, cough, nausea, vomiting, bowel/bladder complaints, pain/ swelling in her legs bilaterally. Abdominal dressings are c/d/i. Patient has some postop pain which is controlled with medications. Objective - Vital Signs/Intake and Output Vital Signs (last 24 hours): Temp Pulse Resp BP Pulse Ox 98.2 F 77 18 105/62 99 11/17/16 23:12 11/17/16 23:12 11/17/16 23:12 11/17/16 23:12 11/17/16 23:12 - Medications Medications: Current Medications Amlodipine Besylate (Norvasc) 10 mg PO DAILY [facility] Last Admin: 11/17/16 18:21 Dose: 10 mg Aspirin (Ecotrin) 81 mg PO DAILY [facility] Last Admin: 11/17/16 18:27 Dose: 81 mg Calcium Acetate (Phoslo) 667 mg PO TIDCC [facility] Clonidine HCl (Catapres) 0.1 mg PO BID [facility] Last Admin: 11/17/16 18:21 Dose: 0.1 mg Epoetin Glenn (Procrit) 10,000 unit IV MWF [facility] Last Admin: 11/17/16 10:37 Dose: 10,000 unit Escitalopram Oxalate (Lexapro) 10 mg PO DAILY [facility] Last Admin: 11/17/16 18:19 Dose: 10 mg Famotidine (Pepcid) 20 mg PO DAILY [facility] Last Admin: 11/17/16 18:20 Dose: 20 mg Ferric Sodium Gluconate Complex (Ferrlecit) 125 mg IVPB DAILY [facility] Stop: 11/22/16 13:16 Last Admin: 11/17/16 10:36 Dose: 125 mg Heparin Sodium (Porcine) (Heparin) 5,000 units SC Q8 [facility] Last Admin: 11/17/16 21:33 Dose: Not Given Ibuprofen (Motrin Tab) 600 mg PO TID PRN PRN Reason: Pain, Mild (1-3) Last Admin: 11/17/16 18:26 Dose: 600 mg Labetalol HCl (Normodyne) 300 mg PO TID [facility] Last Admin: 11/17/16 18:22 Dose: 300 mg Lorazepam (Ativan) 0.5 mg PO Q6H PRN PRN Reason: Anxiety Last Admin: 11/17/16 00:26 Dose: 0.5 mg Minoxidil (Minoxidil) 5 mg PO BID [facility] Last Admin: 11/17/16 18:20 Dose: 5 mg Nicotine (Nicoderm Cq) 1 patch TD DAILY [facility] Last Admin: 11/17/16 18:23 Dose: 1 patch Ondansetron HCl (Zofran Inj) 4 mg IVP Q8 PRN PRN Reason: Nausea/Vomiting Last Admin: 11/13/16 16:00 Dose: 4 mg Oxycodone/Acetaminophen (Percocet 5/325 Mg Tab) 1 tab PO Q6H PRN PRN Reason: Pain, severe (8-10) Stop: 11/21/16 06:46 Last Admin: 11/18/16 06:51 Dose: 1 tab - Labs Labs: 11/17/16 08:43 11/17/16 08:43 PT 11.9 SECONDS (9.7-12.2) 11/13/16 06:34 INR 1.1 11/13/16 06:34 APTT 27 SECONDS (21-34) D 11/13/16 06:34 - Constitutional Appears: Non-toxic, No Acute Distress - Head Exam Head Exam: NORMAL INSPECTION, NORMOCEPHALIC - Eye Exam Eye Exam: EOMI, Normal appearance. absent: Conjunctival injection, Scleral icterus - ENT Exam ENT Exam: Mucous Membranes Moist - Neck Exam Neck Exam: Full ROM, Normal Inspection - Respiratory Exam Respiratory Exam: Clear to Ausculation Bilateral, NORMAL BREATHING PATTERN. absent: Accessory Muscle Use, Rales, Rhonchi, Wheezes, Respiratory Distress - Cardiovascular Exam Cardiovascular Exam: REGULAR RHYTHM, RRR, +S1, +S2 - GI/Abdominal Exam GI & Abdominal Exam: Soft, Tenderness (appropriate postop), Normal Bowel Sounds Additional comments: dressings c/d/i - Extremities Exam Extremities Exam: Normal Capillary Refill, Normal Inspection. absent: Pedal Edema, Tenderness - Neurological Exam Neurological Exam: Alert, Awake, Oriented x3 - Psychiatric Exam Psychiatric exam: Normal Affect, Normal Mood - Skin Skin Exam: Dry, Intact, Normal Color, Warm Assessment and Plan - Assessment and Plan (Free Text) Assessment: 36 F PMHx HTN admitted with acute heart failure, acute renal insufficiency, acute pulmonary edema, and severe hypokalemia Plan: -BP is well controlled with current medication regimen -POD#1 peritoneal dialysis catheter insertion -Patient has diastolic CHF as seen on Echo 11/10 LV systolic ventricular function is normal; moderately increased wall thickness; Grade III reversible restrictive diastolic dysfunction; Moderately increased L atrial volume; moderate pulmonary HTN; L pleural effusion; LA pressure is elevated; consider restrictive cardiomyopathy -CXR 11/11: improved CHF and pulmonary edema -proBNP [id number] on admission -Norvasc 10mg po daily -ASA 81mg po daily -Clonidine 0.1mg po bid -Labetalol 300mg po tid Cardiology will sign off at this time Please continue current management Thank you for the consult; please reconsult if necessary Case discussed with Dr. Wei Crawley PGY2
[2016-11-18 08:37] LABS: BASO # 0.1 K/uL (0.0-0.2); BASO % 0.9 % (0.0-2.0); EOS # 0.2 K/uL (0.0-0.7); EOS % 1.6 % (0.0-4.0); HEMOGLOBIN 9.2 g/dL (11.0-16.0); LYMPH # 1.4 K/uL (1.0-4.3); LYMPH % 12.5 % (20.0-40.0); MEAN CELL VOLUME 76.4 fL (81.0-99.0); MEAN CORPUSCULAR HEMOGLOBIN 23.7 pg (27.0-31.0); MEAN PLATELET VOLUME 7.3 fL (7.2-11.7); MONO # 0.7 K/uL (0.0-0.8); MONO % 5.8 % (0.0-10.0); NEUT # 8.8 K/uL (1.8-7.0); NEUT % 79.2 % (50.0-75.0); RBC 3.91 Mil/uL (3.80-5.20); RED CELL DISTRIBUTION WIDTH 23.1 % (11.5-14.5); WHITE BLOOD COUNT 11.2 K/uL (4.8-10.8)
[2016-11-18 08:57] LABS: ALBUMIN 3.4 g/dL (3.5-5.0)
[2016-11-18 09:00] LABS: ALB/GLOB RATIO 1.3 (1.0-2.1)
[2016-11-18 09:01] LABS: CALCIUM 9.2 mg/dl (8.6-10.4); MAGNESIUM 2.4 mg/dL (1.6-2.3)
[2016-11-18] MEDS: Ferric Sodium Gluconat Complex 62.5 mg/5 ml Vial IVPB SCH (09:36)
[2016-11-18] MEDS: Labetalol Hydrochloride 300 mg Tab PO SCH ×3 (09:38→18:56)
--- NOTE | 2016-11-18 13:12 | CP.PCM.PN ---
Subjective - Date & Time of Evaluation Date of Evaluation: 11/18/16 Time of Evaluation: 13:10 - Subjective Subjective: seen and examined s/p pd cathetr denies any n/v/d/sob/fevers/chills Objective - Vital Signs/Intake and Output Vital Signs (last 24 hours): Temp Pulse Resp BP Pulse Ox 98.2 F 73 20 118/72 100 11/18/16 08:18 11/18/16 08:18 11/18/16 08:18 11/18/16 08:18 11/18/16 08:18 - Medications Medications: Current Medications Amlodipine Besylate (Norvasc) 10 mg PO DAILY [facility] Last Admin: 11/18/16 09:37 Dose: 10 mg Aspirin (Ecotrin) 81 mg PO DAILY [facility] Last Admin: 11/18/16 09:37 Dose: 81 mg Calcium Acetate (Phoslo) 667 mg PO TIDCC [facility] Clonidine HCl (Catapres) 0.1 mg PO BID [facility] Last Admin: 11/18/16 09:37 Dose: 0.1 mg Epoetin Glenn (Procrit) 10,000 unit IV MWF [facility] Last Admin: 11/17/16 10:37 Dose: 10,000 unit Escitalopram Oxalate (Lexapro) 10 mg PO DAILY [facility] Last Admin: 11/18/16 09:37 Dose: 10 mg Famotidine (Pepcid) 20 mg PO DAILY [facility] Last Admin: 11/18/16 09:37 Dose: 20 mg Ferric Sodium Gluconate Complex (Ferrlecit) 125 mg IVPB DAILY [facility] Stop: 11/22/16 13:16 Last Admin: 11/18/16 09:36 Dose: 125 mg Heparin Sodium (Porcine) (Heparin) 5,000 units SC Q8 [facility] Last Admin: 11/18/16 08:03 Dose: 5,000 units Ibuprofen (Motrin Tab) 600 mg PO TID PRN PRN Reason: Pain, Mild (1-3) Last Admin: 11/17/16 18:26 Dose: 600 mg Labetalol HCl (Normodyne) 300 mg PO TID [facility] Last Admin: 11/18/16 09:38 Dose: 300 mg Lorazepam (Ativan) 0.5 mg PO Q6H PRN PRN Reason: Anxiety Last Admin: 11/17/16 00:26 Dose: 0.5 mg Minoxidil (Minoxidil) 5 mg PO BID [facility] Last Admin: 11/18/16 09:37 Dose: 5 mg Nicotine (Nicoderm Cq) 1 patch TD DAILY [facility] Last Admin: 11/18/16 09:38 Dose: 1 patch Ondansetron HCl (Zofran Inj) 4 mg IVP Q8 PRN PRN Reason: Nausea/Vomiting Last Admin: 11/13/16 16:00 Dose: 4 mg Oxycodone/Acetaminophen (Percocet 5/325 Mg Tab) 1 tab PO Q6H PRN PRN Reason: Pain, severe (8-10) Stop: 11/21/16 06:46 Last Admin: 11/18/16 06:51 Dose: 1 tab - Labs Labs: 11/18/16 08:27 11/18/16 08:27 PT 11.9 SECONDS (9.7-12.2) 11/13/16 06:34 INR 1.1 11/13/16 06:34 APTT 27 SECONDS (21-34) D 11/13/16 06:34 - Constitutional Appears: Non-toxic, No Acute Distress, Chronically Ill - Head Exam Head Exam: NORMAL INSPECTION - Eye Exam Eye Exam: Normal appearance - ENT Exam ENT Exam: Mucous Membranes Moist, Normal Exam - Neck Exam Neck Exam: Normal Inspection - Respiratory Exam Respiratory Exam: Decreased Breath Sounds, NORMAL BREATHING PATTERN - Cardiovascular Exam Cardiovascular Exam: REGULAR RHYTHM, RRR - GI/Abdominal Exam GI & Abdominal Exam: Distended, Soft - Extremities Exam Extremities Exam: Normal Inspection Assessment and Plan (1) ESRD (end stage renal disease) Status: Acute (2) Anemia Status: Acute (3) CHF (congestive heart failure) Status: Acute (4) Hypokalemia Status: Acute (5) NSTEMI (non-ST elevated myocardial infarction) Status: Acute - Assessment and Plan (Free Text) Assessment: maintain hd mwf, permcath pd cath to be flushed prior to dc follow up for outpt pd training outpt [facility]
--- NOTE | 2016-11-18 14:31 | CP.PCM.PN ---
Subjective - Date & Time of Evaluation Date of Evaluation: 11/18/16 Time of Evaluation: 07:00 - Subjective Subjective: Patient seen and examined at bedside this AM. NAEO. Patient complains of mild abdominal pain but denies nausea, vomiting, fevers, or any other symptoms Objective - Vital Signs/Intake and Output Vital Signs (last 24 hours): Temp Pulse Resp BP Pulse Ox 98.2 F 73 20 118/72 100 11/18/16 08:18 11/18/16 08:18 11/18/16 08:18 11/18/16 08:18 11/18/16 08:18 - Medications Medications: Current Medications Amlodipine Besylate (Norvasc) 10 mg PO DAILY [facility] Last Admin: 11/18/16 09:37 Dose: 10 mg Aspirin (Ecotrin) 81 mg PO DAILY [facility] Last Admin: 11/18/16 09:37 Dose: 81 mg Calcium Acetate (Phoslo) 667 mg PO TIDCC [facility] Clonidine HCl (Catapres) 0.1 mg PO BID [facility] Last Admin: 11/18/16 09:37 Dose: 0.1 mg Epoetin Glenn (Procrit) 10,000 unit IV MWF [facility] Last Admin: 11/17/16 10:37 Dose: 10,000 unit Escitalopram Oxalate (Lexapro) 10 mg PO DAILY [facility] Last Admin: 11/18/16 09:37 Dose: 10 mg Famotidine (Pepcid) 20 mg PO DAILY [facility] Last Admin: 11/18/16 09:37 Dose: 20 mg Ferric Sodium Gluconate Complex (Ferrlecit) 125 mg IVPB DAILY [facility] Stop: 11/22/16 13:16 Last Admin: 11/18/16 09:36 Dose: 125 mg Heparin Sodium (Porcine) (Heparin) 5,000 units SC Q8 [facility] Last Admin: 11/18/16 08:03 Dose: 5,000 units Ibuprofen (Motrin Tab) 600 mg PO TID PRN PRN Reason: Pain, Mild (1-3) Last Admin: 11/17/16 18:26 Dose: 600 mg Labetalol HCl (Normodyne) 300 mg PO TID [facility] Last Admin: 11/18/16 09:38 Dose: 300 mg Lorazepam (Ativan) 0.5 mg PO Q6H PRN PRN Reason: Anxiety Last Admin: 11/17/16 00:26 Dose: 0.5 mg Minoxidil (Minoxidil) 5 mg PO BID [facility] Last Admin: 11/18/16 09:37 Dose: 5 mg Nicotine (Nicoderm Cq) 1 patch TD DAILY [facility] Last Admin: 11/18/16 09:38 Dose: 1 patch Ondansetron HCl (Zofran Inj) 4 mg IVP Q8 PRN PRN Reason: Nausea/Vomiting Last Admin: 11/13/16 16:00 Dose: 4 mg Oxycodone/Acetaminophen (Percocet 5/325 Mg Tab) 1 tab PO Q6H PRN PRN Reason: Pain, severe (8-10) Stop: 11/21/16 06:46 Last Admin: 11/18/16 06:51 Dose: 1 tab - Labs Labs: 11/18/16 08:27 11/18/16 08:27 PT 11.9 SECONDS (9.7-12.2) 11/13/16 06:34 INR 1.1 11/13/16 06:34 APTT 27 SECONDS (21-34) D 11/13/16 06:34 - Constitutional Appears: Well, Non-toxic, No Acute Distress - Head Exam Head Exam: ATRAUMATIC - Eye Exam Eye Exam: Normal appearance. absent: Conjunctival injection, Scleral icterus - ENT Exam ENT Exam: Mucous Membranes Moist, Normal Oropharynx - Respiratory Exam Respiratory Exam: NORMAL BREATHING PATTERN. absent: Accessory Muscle Use, Respiratory Distress - Cardiovascular Exam Cardiovascular Exam: RRR - GI/Abdominal Exam GI & Abdominal Exam: Soft, Tenderness (appropriate tenderness over the incision sites). absent: Distended Additional comments: peritoneal dialysis catheter under dressing c/d/i - Extremities Exam Extremities Exam: absent: Calf Tenderness, Pedal Edema, Tenderness - Neurological Exam Neurological Exam: Alert, Awake, Oriented x3 - Psychiatric Exam Psychiatric exam: Normal Affect, Normal Mood - Skin Skin Exam: Dry, Normal Color, Warm Assessment and Plan - Assessment and Plan (Free Text) Assessment: 36yo F with AMPARO requiring hemodialysis POD#5 s/p Right IJ Permacath placement, POD#1 s/p peritoneal dialysis catheter placement Plan: - No further surgical intervention at this time - Do not use the peritoneal dialysis catheter until cleared by vascular surgeon - Do no remove the surgical dressing until Thursday - analgesiea, anti-emetics PRN - Follow up with Dr. Burgos in his office in 2 weeks Thank you for this consult Seen and discussed with Dr. Loretta Key, PGY2
[2016-11-19] MEDS: Oxycodone/Acetaminophen 5/325 mg Tab PO PRN ×2 (06:51→13:08)
[2016-11-19 07:36] LABS: BASO # 0.1 K/uL (0.0-0.2); BASO % 0.8 % (0.0-2.0); EOS # 0.3 K/uL (0.0-0.7); EOS % 2.8 % (0.0-4.0); HEMOGLOBIN 9.2 g/dL (11.0-16.0); LYMPH # 1.6 K/uL (1.0-4.3); LYMPH % 16.5 % (20.0-40.0); MEAN CELL VOLUME 77.2 fL (81.0-99.0); MEAN CORPUSCULAR HEMOGLOBIN 24.9 pg (27.0-31.0); MEAN CORPUSCULAR HGB CONC 32.3 g/dL (33.0-37.0); MEAN PLATELET VOLUME 7.6 fL (7.2-11.7); MONO # 0.6 K/uL (0.0-0.8); MONO % 6.1 % (0.0-10.0); NEUT # 7.3 K/uL (1.8-7.0); NEUT % 73.8 % (50.0-75.0); NRBC % 0.1 % (0.0-2.0); RBC 3.68 Mil/uL (3.80-5.20); RED CELL DISTRIBUTION WIDTH 23.9 % (11.5-14.5); WHITE BLOOD COUNT 9.9 K/uL (4.8-10.8)
[2016-11-19 07:52] LABS: ALBUMIN 3.2 g/dL (3.5-5.0)
[2016-11-19 07:55] LABS: ALB/GLOB RATIO 1.2 (1.0-2.1)
[2016-11-19 07:56] LABS: CALCIUM 9.1 mg/dl (8.6-10.4); MAGNESIUM 2.5 mg/dL (1.6-2.3)
[2016-11-19] MEDS: Epoetin Alfa 10,000 unit/ml Dialysis IV SCH (09:25)
[2016-11-19] MEDS: Ferric Sodium Gluconat Complex 62.5 mg/5 ml Vial IVPB SCH (09:26)
--- NOTE | 2016-11-19 13:49 | CP.PCM.PN ---
Subjective - Date & Time of Evaluation Date of Evaluation: 11/19/16 Time of Evaluation: 13:43 - Subjective Subjective: s/p dialysis now- UF 1900ml BP better controlled- sometimes BP drops Setting up for outpt dialysis- HD MWF and PD training No n, v, SOB, f, c, diarrhea Feels much better overall Objective - Vital Signs/Intake and Output Vital Signs (last 24 hours): Temp Pulse Resp BP Pulse Ox 98.7 F 71 18 128/73 97 11/19/16 12:20 11/19/16 12:20 11/19/16 12:20 11/19/16 12:20 11/19/16 12:20 Intake and Output: 11/19/16 11/19/16 06:59 18:59 Intake Total 240 Balance 240 - Medications Medications: Current Medications Amlodipine Besylate (Norvasc) 10 mg PO DAILY [facility] Last Admin: 11/18/16 09:37 Dose: 10 mg Aspirin (Ecotrin) 81 mg PO DAILY [facility] Last Admin: 11/18/16 09:37 Dose: 81 mg Calcium Acetate (Phoslo) 667 mg PO TIDCC [facility] Last Admin: 11/19/16 13:22 Dose: 667 mg Clonidine HCl (Catapres) 0.1 mg PO BID [facility] Last Admin: 11/18/16 18:56 Dose: 0.1 mg Epoetin Glenn (Procrit) 10,000 unit IV MWF [facility] Last Admin: 11/19/16 09:25 Dose: 10,000 unit Escitalopram Oxalate (Lexapro) 10 mg PO DAILY [facility] Last Admin: 11/18/16 09:37 Dose: 10 mg Famotidine (Pepcid) 20 mg PO DAILY [facility] Last Admin: 11/18/16 09:37 Dose: 20 mg Ferric Sodium Gluconate Complex (Ferrlecit) 125 mg IVPB DAILY [facility] Stop: 11/22/16 13:16 Last Admin: 11/19/16 09:26 Dose: 125 mg Heparin Sodium (Porcine) (Heparin) 5,000 units SC Q8 [facility] Last Admin: 11/19/16 05:21 Dose: 5,000 units Ibuprofen (Motrin Tab) 600 mg PO TID PRN PRN Reason: Pain, Mild (1-3) Last Admin: 11/17/16 18:26 Dose: 600 mg Labetalol HCl (Normodyne) 300 mg PO TID [facility] Last Admin: 11/18/16 18:56 Dose: 300 mg Lorazepam (Ativan) 0.5 mg PO Q6H PRN PRN Reason: Anxiety Last Admin: 11/18/16 20:32 Dose: 0.5 mg Minoxidil (Minoxidil) 5 mg PO BID [facility] Last Admin: 11/18/16 18:56 Dose: 5 mg Nicotine (Nicoderm Cq) 1 patch TD DAILY [facility] Last Admin: 11/18/16 09:38 Dose: 1 patch Ondansetron HCl (Zofran Inj) 4 mg IVP Q8 PRN PRN Reason: Nausea/Vomiting Last Admin: 11/13/16 16:00 Dose: 4 mg Oxycodone/Acetaminophen (Percocet 5/325 Mg Tab) 1 tab PO Q6H PRN PRN Reason: Pain, severe (8-10) Stop: 11/21/16 06:46 Last Admin: 11/19/16 13:08 Dose: 1 tab - Labs Labs: 11/19/16 07:14 11/19/16 07:14 PT 11.9 SECONDS (9.7-12.2) 11/13/16 06:34 INR 1.1 11/13/16 06:34 APTT 27 SECONDS (21-34) D 11/13/16 06:34 - Constitutional Appears: Non-toxic, No Acute Distress - Head Exam Head Exam: ATRAUMATIC, NORMAL INSPECTION - Eye Exam Eye Exam: EOMI, Normal appearance - Neck Exam Neck Exam: Normal Inspection. absent: Tenderness - Respiratory Exam Respiratory Exam: Clear to Ausculation Bilateral, NORMAL BREATHING PATTERN - Cardiovascular Exam Cardiovascular Exam: REGULAR RHYTHM, +S1 - GI/Abdominal Exam GI & Abdominal Exam: Soft. absent: Tenderness - Extremities Exam Extremities Exam: Normal Inspection. absent: Tenderness - Neurological Exam Neurological Exam: Alert, CN II-XII Intact - Skin Skin Exam: Dry, Warm Assessment and Plan (1) Proteinuria Status: Acute (2) NSTEMI (non-ST elevated myocardial infarction) Status: Acute (3) AMPARO (acute kidney injury) Status: Acute (4) CHF (congestive heart failure) Status: Acute (5) Hypertensive emergency Status: Acute (6) CKD (chronic kidney disease) stage 5, GFR less than 15 ml/min Status: Acute (7) CKD stage 5 secondary to hypertension Status: Acute (8) ESRD (end stage renal disease) Status: Acute - Assessment and Plan (Free Text) Plan: Dialysis MWF Adjust BP meds Will call outpt dialysis to confirm outpt HD and PD training plans
[2016-11-19] MEDS: Labetalol Hydrochloride 300 mg Tab PO SCH (14:23)
[2016-11-19 16:25] VITALS: BP 133/79; PULSE 83; RESP 20; TEMP 100; O2SAT 96
--- NOTE | 2016-11-19 18:39 | CP.PCM.DIS ---
Provider - Provider Date of Admission: 11/08/16 03:31 Attending physician: Patric Garcia Jr, MD Consults: Dr. Carvajal (cardio) Dr. Jordan (nephro) Dr. Burgos (surgery) Dr. Mckeon (psych) Time Spent in preparation of Discharge (in minutes): 45 Diagnosis - Discharge Diagnosis (1) CHF (congestive heart failure) Status: Acute (2) Renal failure Status: Acute (3) Anemia Status: Acute Hospital Course - Lab Results Lab Results: Micro Results 11/14/16 Unknown Naris MRSA Culture - Final MRSA NOT DETECTED 11/08/16 08:40 Urine,Clean Catch Urine Culture - Final 10-50,000 CFU/ML. MULTIPLE SPECIES. PROBABLE CONTAMINATION. 11/08/16 05:34 Nose MRSA Culture (Admit) - Final MRSA NOT DETECTED Most Recent Lab Values WBC 9.9 K/uL (4.8-10.8) 11/19/16 07:14 RBC 3.68 Mil/uL (3.80-5.20) L 11/19/16 07:14 Hgb 9.2 g/dL (11.0-16.0) L 11/19/16 07:14 Hct 28.4 % (34.0-47.0) L 11/19/16 07:14 MCV 77.2 fL (81.0-99.0) L 11/19/16 07:14 MCH 24.9 pg (27.0-31.0) L 11/19/16 07:14 MCHC 32.3 g/dL (33.0-37.0) L 11/19/16 07:14 RDW 23.9 % (11.5-14.5) H 11/19/16 07:14 Plt Count 317 K/uL (130-400) 11/19/16 07:14 MPV 7.6 fL (7.2-11.7) 11/19/16 07:14 Neut % (Auto) 73.8 % (50.0-75.0) 11/19/16 07:14 Lymph % (Auto) 16.5 % (20.0-40.0) L 11/19/16 07:14 [place] % (Auto) 6.1 % (0.0-10.0) 11/19/16 07:14 Eos % (Auto) 2.8 % (0.0-4.0) 11/19/16 07:14 Baso % (Auto) 0.8 % (0.0-2.0) 11/19/16 07:14 Neut # 7.3 K/uL (1.8-7.0) H 11/19/16 07:14 Lymph # 1.6 K/uL (1.0-4.3) 11/19/16 07:14 [place] # 0.6 K/uL (0.0-0.8) 11/19/16 07:14 Eos # 0.3 K/uL (0.0-0.7) 11/19/16 07:14 Baso # 0.1 K/uL (0.0-0.2) 11/19/16 07:14 Neutrophils % (Manual) 86 % (50-75) H 11/08/16 01:23 Lymphocytes % (Manual) 9 % (20-40) L 11/08/16 01:23 Monocytes % (Manual) 3 % (0-10) 11/08/16 01:23 Eosinophils % (Manual) 2 % (0-4) 11/08/16 01:23 Platelet Estimate Normal (NORMAL) 11/08/16 01:23 PT 11.9 SECONDS (9.7-12.2) 11/13/16 06:34 INR 1.1 11/13/16 06:34 APTT 27 SECONDS (21-34) D 11/13/16 06:34 Puncture Site R rad 11/08/16 05:10 pCO2 37 mm/Hg (35-45) 11/08/16 05:10 pO2 252 mm/Hg (80-100) H 11/08/16 05:10 HCO3 23.6 mmol/L (21-28) 11/08/16 05:10 ABG pH 7.40 (7.35-7.45) 11/08/16 05:10 ABG Total CO2 24.0 mmol/L (22-28) 11/08/16 05:10 ABG O2 Saturation 99.3 % (95-98) H 11/08/16 05:10 ABG Base Excess -1.7 mmol/L (-2.0-3.0) 11/08/16 05:10 ABG Hemoglobin 8.2 g/dL (11.7-17.4) L 11/08/16 05:10 ABG Carboxyhemoglobin 2.9 % (0.5-1.5) H 11/08/16 05:10 POC ABG HHb (Measured) 0.7 % (0.0-5.0) 11/08/16 05:10 ABG Methemoglobin 1.5 % (0.0-3.0) 11/08/16 05:10 Sd Test Pos 11/08/16 05:10 ABG Potassium 2.7 mmol/L (3.6-5.2) L 11/08/16 03:48 A-a O2 Difference 415.0 mm/Hg 11/08/16 05:10 Respiratory Index 1.6 11/08/16 05:10 Hgb O2 Saturation 94.9 % (95.0-98.0) L 11/08/16 05:10 Sodium 130.0 mmol/l (132-148) L 11/08/16 03:48 Chloride 95.0 mmol/L (98-107) L 11/08/16 03:48 Glucose 174 mg/dl (65-105) H 11/08/16 03:48 Lactate 0.6 mmol/L (0.7-2.1) L 11/08/16 03:48 FiO2 100.0 % 11/08/16 05:10 Sodium 134 mmol/L (132-148) 11/19/16 07:14 Potassium 4.3 mmol/L (3.6-5.2) 11/19/16 07:14 Chloride 99 mmol/L (98-107) 11/19/16 07:14 Carbon Dioxide 23 mmol/L (22-30) 11/19/16 07:14 Anion Gap 16 (10-20) 11/19/16 07:14 BUN 37 mg/dL (7-17) H 11/19/16 07:14 Creatinine 7.6 MG/DL (0.7-1.2) H* D 11/19/16 07:14 Est GFR ( Amer) 7 11/19/16 07:14 Est GFR (Non-Af Amer) 6 11/19/16 07:14 Random Glucose 86 mg/dL (65-105) 11/19/16 07:14 Hemoglobin A1c 5.7 % (4.2-6.5) 11/08/16 09:45 Calcium 9.1 mg/dl (8.6-10.4) 11/19/16 07:14 Phosphorus 7.2 mg/dL (2.5-4.5) H 11/19/16 07:14 Magnesium 2.5 mg/dL (1.6-2.3) H 11/19/16 07:14 Iron 35 ug/dL (37-170) L 11/08/16 09:45 TIBC 328 ug/dL (250-450) 11/08/16 09:45 % Saturation 11 (20-55) L 11/10/16 11:21 Ferritin 13.9 ng/mL 11/10/16 11:21 Total Bilirubin 0.7 mg/dL (0.2-1.3) 11/19/16 07:14 AST 19 U/L (14-36) 11/19/16 07:14 ALT 22 U/L (9-52) 11/19/16 07:14 Alkaline Phosphatase 58 U/L (38-126) 11/19/16 07:14 Total Creatine Kinase 67 U/L (30-135) 11/08/16 20:55 CK-MB (Mass) 2.74 ng/mL (0.0-3.38) 11/08/16 20:55 Troponin I, Quant 0.5570 ng/mL (0.00-0.120) H* 11/08/16 20:55 NT-Pro-B Natriuret Pep 584929 pg/mL (0-450) H 11/08/16 01:23 Total Protein 5.8 g/dL (6.3-8.3) L 11/19/16 07:14 Albumin 3.2 g/dL (3.5-5.0) L 11/19/16 07:14 Globulin 2.6 gm/dL (2.2-3.9) 11/19/16 07:14 Albumin/Globulin Ratio 1.2 (1.0-2.1) 11/19/16 07:14 Renin 12.85 ng/mL/h (0.25-5.82) H 11/10/16 11:21 Procalcitonin 0.49 NG/ML (0.19-0.49) 11/12/16 10:03 TSH 3rd Generation 2.23 mIU/L (0.46-4.68) 11/08/16 04:15 PTH Intact Whole Molec 249 pg/mL (14-64) H 11/09/16 09:02 Arterial Blood Potassium 2.7 mmol/L (3.6-5.2) L 11/08/16 03:48 Urine Color Straw (YELLOW) 11/08/16 01:23 Urine Clarity Clear (Clear) 11/08/16 01:23 Urine pH 6.0 (5.0-8.0) 11/08/16 01:23 Ur Specific [place] 1.009 (1.003-1.030) 11/08/16 01:23 Urine Protein 2+ mg/dL (NEGATIVE) H 11/08/16 01:23 Urine Glucose (UA) 1+ mg/dL (Normal) 11/08/16 01:23 Urine Ketones Negative mg/dL (NEGATIVE) 11/08/16 01:23 Urine Blood 1+ (NEGATIVE) H 11/08/16 01:23 Urine Nitrate Negative (NEGATIVE) 11/08/16 01:23 Urine Bilirubin Negative (NEGATIVE) 11/08/16 01:23 Urine Urobilinogen Normal mg/dL (0.2-1.0) 11/08/16 01:23 Ur Leukocyte Esterase 1+ Pastor/uL (Negative) H 11/08/16 01:23 Urine WBC (Auto) 31 /hpf (0-5) H 11/08/16 01:23 Urine RBC (Auto) 4 /hpf (0-3) H 11/08/16 01:23 Ur Squamous Epith Cells 1 /hpf (0-5) 11/08/16 01:23 Urine Collection Time 24 HRS 11/10/16 08:34 Urine Total Volume 1275 mL 11/10/16 08:34 Ur Protein 24 Hr Calc 1504.5 mg/24hr (42-225) H 11/10/16 08:34 Urine HCG, Qual Negative (NEGATIVE) 11/17/16 07:23 Stool Occult Blood Negative (NEGATIVE) 11/10/16 17:04 Alcohol, Quantitative < 10 mg/dl (0-10) 11/08/16 01:23 LARRY 6 Profile Negative (NEGATIVE) 11/08/16 12:04 ANCA Screen Negative (NEGATIVE) 11/08/16 12:04 c-ANCA Titer TNP 11/08/16 12:04 Proteinase 3 (PR3) <1.0 AI (<1.0) 11/08/16 12:04 p-ANCA Titer TNP 11/08/16 12:04 Atypical p-ANCA Titer TNP 11/08/16 12:04 Myeloperoxidase Ab <1.0 AI (<1.0) 11/08/16 12:04 Scl-70 Scleroderma Ab <1.0 AI (<1.0) 11/08/16 12:04 Complement C3 117.0 mg/dL (88.0-165.0) 11/08/16 12:04 Complement C4 30.2 mg/dL (14.0-44.0) 11/08/16 12:04 C. difficile Ag & Toxin Negative (NEGATIVE) 11/12/16 09:35 Hep Bs Antigen Negative (NEGATIVE) 11/08/16 12:04 Hep B Core IgM Ab Negative (NEGATIVE) 11/18/16 18:03 Hepatitis C Antibody Negative (NEGATIVE) 11/08/16 12:04 HIV 1&2 Antibody Screen Negative (NEGATIVE) 11/14/16 09:33 Ur L.pneumophila Ag Negative (NEGATIVE) 11/08/16 04:40 Mycoplasma pneumon IgG 2.45 (<=0.90) H 11/08/16 09:45 Mycoplasma pneumon IgM 64 U/mL (<770) 11/08/16 09:45 Blood Type A POSITIVE 11/08/16 14:00 Blood Type Confirm A POSITIVE 11/08/16 14:00 Antibody Screen Negative 11/08/16 14:00 - Hospital Course Hospital Course: CC: chest pain and shortness of breath HPI: Mrs Trimble is a 36 yo F who presented to the ED with worsening left sided chest pain and shortness of breath which began 3 days ago. She rated the pain a 8/10. She describes the pain as squeezing. She denied any radiation of pain. She also endorses a non-productive cough which she's had for the past few months. She did not note any remitting factors. Exacerbating factors include activity such as walking a few flights of steps. She states she's had trouble sleeping due to her cough. Patient admitted on 11/08/16 to ICUfor chest pain and shortness of breath. Patient has a grade III diastolic dysfunction CHF, Cardiology was consulted, Dr. Carvajal. CXR [11/08] found mild congestive heart failure, Pulmonary venous congestion, interstitial edema, pulmonary redistribution. Probable small pleural effusions and fluid in horizontal fissure. Moderate cardiomegaly. ECG [ 11/08] was an abnormal ecg, found normal sinus rhythm, left atrial enlargement, left ventricular hypertrophy with repolarization abnormality, prolonged QT. Patient NSTEMI/CHF elevated troponin and BNP, EKG interpretation by Dr. Reno showed T inversions in lateral leads, ST depression. Echocardiogram [11/09] showed that the left systolic ventricular function is normal, there is moderately increased wall thickness, transmitral doppler flow pattern is Grade III-reversible restrictive diastolic dysfunction, LVEF about 60%. Patient has moderately increased left atrial volume, moderate pulmonary HTN, left pleural effusion. Left atrial pressure is elevated. 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 CXR [11/11] showed slightly improved pulmonary edema/CHF. Patient was treated with Norvasc 10mg PO daily, Aspirin 81mg daily, Labetalol 300mg PO TID, Minoxidil 5mg PO BID, Clonidine .1mg PO BID. Patient had acute kidney injury. Renal Ultrasound [11/08] showed medical renal disease with no hydronephrosis or nephrolithiasis. Urine Clean Catch Culture [] showed multiple species, was probable contamination. Urine HCG was negative on dates 11/08, 11/12, 11/17. Nephrology was consulted, Dr. Jordan. Surgery was consulted, Dr. Burgos. On [11/13] there was a Right Internal Jugular permacatheter placed. CXR [11/13] showed interval placement of right sided dialysis catheter with distal tips at the distal SVC/cavoatrial junction, mild to moderate pulmonary venous congestion. Showed discoid atelectasis, left mid lung zone, linear atelectasis, right midlung zone. Dialysis was preformed during stay. Patient transfered out of ICU on 11/14. On [11/17] laparoscopic insertion Tenkoff dialysis catheter, peritoneal was placed by Dr. Burgos. Patient has chronic anemia treated with Procrit [id number] IV MWF, Ferrlecit 125mg IVPD daily. Pain was controlled with Dilaudid .5mg IVP Q5M prn. Infection was ruled out with venous blood culture [11/08] which showed no growth after 5 days. Naris MRSA Culture [11/08] and [11/14] showed MRSA was not detected. Zosyn was administered as Zosyn 2.25gm in 50mls @100mls/hr IVPB (started on 11/10/16) and discontinued 11/14/16. Patient was negative for HIV 1&2 antibody screen , M. Pneumoniae AB (IgG) positive. Negative for: M Pneumonia IgM ,pneumophila Ag, C. Diff antigen and toxin, Hep Bs antigen, Hep C antibody. Patient was experiencing depression, anxiety and Psychiatry was consulted, Dr. Mckeon. On [11/15] Dr. Mckeon saw patient. Ativan .5mg PO Q6h prn given, and Lexapro 10mg PO daily continued. Patient denied SI/HI. Patient has tobacco use disorder and was treated with Nicoderm 1 patch TD daily. Prophylactic Measures were taken via Pepcid 20mg PO Q12, Heparin 5000u SC Q8, SCD. This is a summary of the hospital course. Please see chart for full details. Discharge Exam - Head Exam Head Exam: ATRAUMATIC, NORMAL INSPECTION - Eye Exam Eye Exam: EOMI, Normal appearance, PERRL - ENT Exam ENT Exam: Mucous Membranes Moist - Neck Exam Neck exam: Full Rom Additional comments: right IJ cath in place with dressing dry, clean, intact - Respiratory Exam Respiratory Exam: NORMAL BREATHING PATTERN, UNREMARKABLE - Cardiovascular Exam Cardiovascular Exam: REGULAR RHYTHM, RRR - GI/Abdominal Exam GI & Abdominal Exam: Normal Bowel Sounds, Unremarkable. absent: Firm Additional comments: dressings dry, clean, intact - Extremities Exam Extremities exam: full ROM, normal inspection - Back Exam Back exam: NORMAL INSPECTION - Neurological Exam Neurological exam: Alert, Oriented x3 - Psychiatric Exam Psychiatric exam: Normal Affect, Normal Mood - Skin Skin Exam: Intact, Normal Color, Warm Discharge Plan - Discharge Medications Prescriptions: amLODIPine [Norvasc] 10 mg PO DAILY #14 tab Aspirin [Ecotrin] 81 mg PO DAILY #14 Calcium Acetate [Phoslo] 667 mg PO TIDCC #42 tab cloNIDine [Catapres] 0.1 mg PO BID #28 tab Escitalopram [Lexapro] 10 mg PO DAILY #14 tab Ferrous Sulfate 325 mg PO DAILY #14 tablet Labetalol Hydrochloride [Normodyne] 300 mg PO TID #42 tab Minoxidil 5 mg PO BID #28 tab - Follow Up Plan Condition: FAIR Disposition: HOME/ ROUTINE Instructions: Labetalol (By mouth), Clonidine (By mouth), Aspirin (By mouth), Amlodipine (By mouth), Calcium Acetate (By mouth), Escitalopram (By mouth), Myocardial Infarction (DC), Hypokalemia (DC), Iron Deficiency Anemia (DC), Pneumonia (DC) Additional Instructions: Patient stable for discharge as per Dr. Garcia. Patient to follow up with Dr. Garcia within one week. Patient to follow up with Dr. Burgos within 2 weeks ( surgeon). Patient to take medications as prescribed and follow up for dialysis at [facility] on Thursday, Thursday, and Thursday. If symptoms worsen or return please return to Emergency Room Immediately. Instructions explained to patient who understood and agreed. Referrals: Patric Garcia Jr., MD [Medical Doctor] - Mina Burgos Jr., MD [Staff Provider] -
== END 2016-11-19 18:45 | disposition home or self-care (01) | DRG 550 ==
LOC: C.ER 00:29 → C.9I 03:31 → C.5T 11-14 22:44 → C.3T 11-19 12:40
PROVIDERS: ADMIT Internal Medicine; ATTEND Internal Medicine
PROC: 3E1M39Z Irrigation of Peritoneal Cavity using Dialysate, Percutaneous Approach (ICD-10-PCS; 2016-11-17)
PROC: 0WHG43Z Insertion of Infusion Device into Peritoneal Cavity, Percutaneous Endoscopic Approach (ICD-10-PCS; principal; 2016-11-17 13:30)
DX: I21.4 Non-ST elevation (NSTEMI) myocardial infarction (principal); J18.9 Pneumonia, unspecified organism; I13.2 Hypertensive heart and chronic kidney disease with heart failure and with stage 5 chronic kidney disease, or end stage renal disease; N17.9 Acute kidney failure, unspecified; N18.6 End stage renal disease; I50.30 Unspecified diastolic (congestive) heart failure; I27.2 Other secondary pulmonary hypertension; E87.1 Hypo-osmolality and hyponatremia; E87.6 Hypokalemia; J98.11 Atelectasis; R09.02 Hypoxemia; W19.XXXA Unspecified fall, initial encounter; D50.9 Iron deficiency anemia, unspecified; F17.210 Nicotine dependence, cigarettes, uncomplicated; F32.9 Major depressive disorder, single episode, unspecified; F41.0 Panic disorder [episodic paroxysmal anxiety]; I16.1 Hypertensive emergency; I16.0 Hypertensive urgency; Z91.14 Patient's other noncompliance with medication regimen

== ENCOUNTER 2016-11-26 00:12 | Observation (INO) | payer OTHER ==
--- NOTE | 2016-11-26 00:29 | C.PDOC ---
History Of Present Illness 36 y/o female presents to emergency department c/o abdominal pain, nausea, and vomiting after eating some tuna fish at 10:00 PM. Pt reports vomiting 70-100 cc bilious material. Pt recently discharged from this facility for acute stemi and renal failure. Denies fever, chills, diarrhea, chest pain, SOB, or other complaints. Time Seen by Provider: 11/26/16 00:29 Chief Complaint (Nursing): Abdominal Pain History Per: Patient History/Exam Limitations: no limitations Onset/Duration Of Symptoms: Days Current Symptoms Are (Timing): Still Present Pain Scale Rating Of: 5 Location Of Pain/Discomfort: Diffuse Radiation Of Pain To:: None Quality Of Discomfort: Cramping Associated Symptoms: Vomiting. denies: Fever, Chills, Diarrhea Recent travel outside of the [place]: No Past Medical History Reviewed: Historical Data, Nursing Documentation, Vital Signs Vital Signs: Last Vital Signs Temp 97.7 F 11/26/16 01:35 Pulse 64 11/26/16 01:35 Resp 18 11/26/16 01:35 BP 203/101 H 11/26/16 01:35 Pulse Ox 100 11/26/16 01:35 - Medical History PMH: Anemia, HTN Family History: States: Unknown Family Hx - Social History Hx Alcohol Use: Yes Hx Substance Use: No - Immunization History Hx Tetanus Toxoid Vaccination: No Hx Influenza Vaccination: No Hx Pneumococcal Vaccination: No Review Of Systems Constitutional: Negative for: Fever, Chills ENT: Negative for: Throat Pain Cardiovascular: Negative for: Chest Pain Respiratory: Negative for: Cough, Shortness of Breath Gastrointestinal: Positive for: Vomiting, Abdominal Pain. Negative for: Nausea , Diarrhea Genitourinary: Negative for: Dysuria Skin: Negative for: Rash Neurological: Negative for: Weakness, Headache, Dizziness Psych: Positive for: Anxiety Physical Exam - Physical Exam Appears: Non-toxic, No Acute Distress Skin: Warm, Dry Head: Atraumatic, Normacephalic Eye(s): bilateral: Normal Inspection Oral Mucosa: Moist Neck: Supple Chest: Symmetrical Cardiovascular: Rhythm Regular Respiratory: Normal Breath Sounds, No Rales, No Rhonchi, No Wheezing Gastrointestinal/Abdominal: Soft, Tenderness (diffuse), No Guarding, No Rebound , Other (Tenckhoff catheter for peritoneal dialysis in place) Extremity: Normal ROM, Capillary Refill (< 2 sec.) Extremity: Bilateral: Atraumatic, Normal Color And Temperature, Normal ROM Neurological/Psych: Oriented x3, Normal Speech, Normal Cognition Gait: Steady ED Course And Treatment - Laboratory Results Result Diagrams: 11/26/16 00:46 11/26/16 00:46 ECG: Interpreted By Me, Viewed By Me ECG Rhythm: Sinus Rhythm (65), Nonspecific Changes O2 Sat by Pulse Oximetry: 97 (RA) Pulse Ox Interpretation: Normal Progress Note: Labs, Pepcid, morphine, Zofran, IV fluids ordered. Disposition Discussed With DrSoraya: Vanessa Orr Comment: accepted the pt on his service and took over the care at 3:10 AM Doctor Will See Patient In The: Hospital Counseled Patient/Family Regarding: Studies Performed, Diagnosis - Disposition Disposition: HOSPITALIZED Disposition Time: 00:29 Condition: FAIR - POA Present On Arrival: None - Clinical Impression Clinical Impression: Abdominal pain, Nausea, Vomiting, Renal insufficiency, Elevated lipase - Scribe Statement The provider has reviewed the documentation as recorded by the Chapinibjuan Melton All medical record entries made by the Chapinibe were at my direction and personally dictated by me. I have reviewed the chart and agree that the record accurately reflects my personal performance of the history, physical exam, medical decision making, and the department course for this patient. I have also personally directed, reviewed, and agree with the discharge instructions and disposition. Decision To Admit - Pt Status Changed To: Hospital Disposition Of: Observation - . Bed Request Type: Regular Admitting Physician: Vanessa Orr Patient Diagnosis: Abdominal pain, Nausea, Vomiting, Renal insufficiency, Elevated lipase
[2016-11-26] MEDS ORDERED: Sodium Chloride 0.9% 1,000 ML IV ONE (00:37)
[2016-11-26] MEDS ORDERED: Sodium Chloride 0.9% 1,000 ML ONE (00:47)
[2016-11-26 00:50] LABS: BASO # 0.1 K/uL (0.0-0.2); BASO % 0.9 % (0.0-2.0); EOS # 0.2 K/uL (0.0-0.7); EOS % 2.4 % (0.0-4.0); HEMOGLOBIN 10.5 g/dL (11.0-16.0); LYMPH # 1.2 K/uL (1.0-4.3); LYMPH % 11.5 % (20.0-40.0); MEAN CELL VOLUME 79.7 fL (81.0-99.0); MEAN CORPUSCULAR HEMOGLOBIN 25.1 pg (27.0-31.0); MEAN CORPUSCULAR HGB CONC 31.5 g/dL (33.0-37.0); MEAN PLATELET VOLUME 7.5 fL (7.2-11.7); MONO # 0.7 K/uL (0.0-0.8); MONO % 6.4 % (0.0-10.0); NEUT # 8.1 K/uL (1.8-7.0); NEUT % 78.8 % (50.0-75.0); NRBC % 0.1 % (0.0-2.0); RBC 4.17 Mil/uL (3.80-5.20); RED CELL DISTRIBUTION WIDTH 26.4 % (11.5-14.5); WHITE BLOOD COUNT 10.2 K/uL (4.8-10.8)
[2016-11-26 00:57] LABS: ALBUMIN 4.1 g/dL (3.5-5.0)
[2016-11-26 01:00] LABS: ALB/GLOB RATIO 1.4 (1.0-2.1)
[2016-11-26 01:01] LABS: CALCIUM 10.1 mg/dl (8.6-10.4)
[2016-11-26 01:07] LABS: PROTHROMBIN TIME 11.1 SECONDS (9.7-12.2)
[2016-11-26] MEDS ORDERED: HYDROmorphone 1 mg/ml ISec IVP STA ×2 (01:09→03:49)
[2016-11-26 01:13] LABS: TROPONIN I 0.074 ng/mL (0.00-0.120)
[2016-11-26] MEDS ORDERED: HYDROmorphone 1 mg/ml ISec ONE (01:15)
[2016-11-26 02:13] LABS: SQUAMOUS EPITHIAL 12 /hpf (0-5); URINE BACTERIA RARE (<OCC); URINE BILIRUBIN NEGATIVE (NEGATIVE); URINE BLOOD NEGATIVE (NEGATIVE); URINE CLARITY Hazy (Clear); URINE COLOR Yellow (YELLOW); URINE GLUCOSE (UA) NORMAL (Normal); URINE LEUKOCYTE ESTERASE TRACE Leu/uL (Negative); URINE NITRATE NEGATIVE (NEGATIVE); URINE PROTEIN 2+ mg/dL (NEGATIVE); URINE UROBILINOGEN NORMAL mg/dL (0.2-1.0)
[2016-11-26] MEDS: Labetalol Hydrochloride 300 mg Tab PO SCH ×3 (10:00→18:00)
--- NOTE | 2016-11-26 10:13 | CT ---
PROCEDURE: CT Abdomen and Pelvis without intravenous contrast HISTORY: abd pain, elevated lipase COMPARISON: None. TECHNIQUE: Helical CT of the abdomen pelvis was performed from the domes of diaphragm to the symphysis pubis without oral or intravenous contrast. Contrast Dose: None Radiation dose: Total exam DLP = bordered 86 mGy-cm. This CT exam was performed using one or more of the following dose reduction techniques: Automated exposure control, adjustment of the mA and/or kV according to patient size, and/or use of iterative reconstruction technique. FINDINGS: LOWER THORAX: Minimal annular linear atelectasis or fibrosis is seen at delete left lower lobe base anteriorly. LIVER: Unremarkable. No gross lesion or ductal dilatation. GALLBLADDER AND BILE DUCTS: The gallbladder appears distended but there is no related radiodense cholelithiasis. PANCREAS: Unremarkable. No gross lesion or ductal dilatation. SPLEEN: Unremarkable. ADRENALS: Unremarkable. No mass. KIDNEYS AND URETERS: A punctate intrarenal calcified at the upper pole left kidney which is nonobstructive. None are seen at the right. No hydronephrosis. No solid mass. VASCULATURE: Unremarkable. No aortic aneurysm. BOWEL: The large bowel appears collapsed with questionable thickening of the wall of the transverse colon which is either intrinsic or related to collapse. Limited segmental colitis is difficult to completely exclude. . No obstruction. No gross mural thickening. APPENDIX: Unremarkable. Normal appendix. PERITONEUM: Peritoneal dialysis catheter is in place versus surgical drain. No free fluid. No free air. LYMPH NODES: Unremarkable. No enlarged lymph nodes. BLADDER: Collapsed and therefore limited in evaluation, particularly the urinary bladder wall. REPRODUCTIVE: Unremarkable. BONES: No acute fracture. OTHER FINDINGS: None. IMPRESSION: 1. Partial mural thickening of the transverse colon is considered a function of either intrinsic segmental colitis or possibly collapse of bowel. Further clinical correlation advised. 2. Peritoneal dialysis catheter noted in the pelvis versus surgical drain. 3. Punctate intrarenal calculus upper pole left kidney, nonobstructive. Concur with V rad preliminary report from Dr. Kenyon Samuel.
--- NOTE | 2016-11-26 10:21 | CP.PCM.CON ---
<Hannah Grady - Last Filed: 11/26/16 13:49> History of Present Illness - History of Present Illness History of Present Illness: Gastroenterology Fellow/PGY5 Consult Note 36 year old female with history of Hypertension with medication noncompliance leading to admission (11/08/16) and discharge 11/19/16 for hypertensive urgency, NSTEMI, and acute renal failure initiated on hemodialysis with placement of peritoneal catheter presenting with vomiting and epigastric pain. Patient describes generalized symptoms of nausea and vomiting two weeks prior to admission on 11/08/16 with associated left lower abdomen pain resolved by discharge (11/1216). She notes sudden onset of epigastric pain/burning at 9PM last night without relief after eating a tuna sandwich and taking her renal medications. Associated multiple episodes of bilious vomitus. Notes daily bowel habit every two days without straining. Denies heartburn, indigestion, acid reflux, hematemesis, diarrhea, melena, hematochezia, unintentional weight loss. No prior antiacid use. Denies regular intake of tomato, garlic, onion, chocolate , coffee, mint, or citrus. Notes intentional 12 pound weight loss with diet and exercise. Admits to regular NSAID use prior to admission on 11/08/16. Last alcohol and tobacco use two weeks prior to 11/08/16. No prior EGD or colonoscopy. Family- Mother ()-ESRD on HD; denies stomach cancer or colon cancer Social- tobacco 1ppd for 5-10 years followed by 2 cigarettes per day; endorsed cessation since 11/08/16; -fifth of liquor x 5 years followed by 1-2 mixed drinks every two weeks for last 12 years; denies illicit drug amador Surgery- peritoneal catheter and L IJ temporary dialysis catheter on admission Review of Systems - Review of Systems Review of Systems: A 12-point review of systems negative except for as above Past Patient History - Past Medical History & Family History Past Medical History?: Yes - Past Social History Smoking Status: Heavy Smoker > 10 Cigarettes Daily - CARDIAC Hx Cardiac Disorders: Yes Hx Congestive Heart Failure: Yes Hx Heart Attack: Yes Hx Hypertension: Yes - PULMONARY Hx Respiratory Disorders: No - NEUROLOGICAL Hx Neurological Disorder: No - HEENT Hx HEENT Problems: No Other/Comment: eyeglasses for reading - RENAL Date of Last Dialysis Treatment: 11/24/16 - ENDOCRINE/METABOLIC Hx Endocrine Disorders: No - HEMATOLOGICAL/ONCOLOGICAL Hx Blood Disorders: Yes Hx Anemia: Yes - INTEGUMENTARY Hx Dermatological Problems: No - MUSCULOSKELETAL/RHEUMATOLOGICAL Hx Falls: No - GASTROINTESTINAL Hx Gastrointestinal Disorders: No - GENITOURINARY/GYNECOLOGICAL Hx Genitourinary Disorders: No - PSYCHIATRIC Hx Substance Use: No - SURGICAL HISTORY Hx Surgeries: Yes Other/Comment: Insertion of peritoneal catheter /tenchoff cath - ANESTHESIA Hx Anesthesia: Yes Hx Anesthesia Reactions: No Hx Malignant Hyperthermia: No Has any member of the family had a problem w/ anesthesia?: No Meds Allergies/Adverse Reactions: Allergies Allergy/AdvReac Type Severity Reaction Status Date / Time No Known Allergies Allergy Verified 11/26/16 00:17 - Medications Medications: Current Medications Amlodipine Besylate (Norvasc) 10 mg PO DAILY [facility] Aspirin (Ecotrin) 81 mg PO DAILY [facility] Calcium Acetate (Phoslo) 667 mg PO TIDCC [facility] Last Admin: 11/26/16 08:09 Dose: 667 mg Clonidine HCl (Catapres) 0.1 mg PO BID [facility] Escitalopram Oxalate (Lexapro) 10 mg PO DAILY [facility] Ferrous Sulfate (Feosol) 325 mg PO DAILY [facility] Hydromorphone HCl (Dilaudid) 1 mg IVP Q8H PRN PRN Reason: Pain, severe (8-10) Labetalol HCl (Normodyne) 300 mg PO TID [facility] Minoxidil (Minoxidil) 5 mg PO BID [facility] Ondansetron HCl (Zofran Inj) 4 mg IVP Q4H PRN PRN Reason: Nausea/Vomiting Stop: 11/27/16 03:14 Last Admin: 11/26/16 08:09 Dose: 4 mg Pantoprazole Sodium (Protonix Ec Tab) 40 mg PO ACB [facility] Physical Exam - Constitutional Appears: Non-toxic, No Acute Distress - Head Exam Head Exam: ATRAUMATIC, NORMOCEPHALIC - Eye Exam Eye Exam: EOMI, PERRL Pupil Exam: PERRL. absent: Miosis, Mydriatic - ENT Exam ENT Exam: Mucous Membranes Moist, Normal Oropharynx - Neck Exam Neck exam: Positive for: Full Rom, Normal Inspection - Respiratory Exam Respiratory Exam: Clear to Auscultation Bilateral. absent: Rales, Rhonchi, Wheezes - Cardiovascular Exam Cardiovascular Exam: RRR, +S1, +S2. absent: Gallop, Rubs - GI/Abdominal Exam GI & Abdominal Exam: Normal Bowel Sounds, Soft, Tenderness. absent: Distended, Firm, Guarding, Organomegaly, Rebound, Rigid Additional comments: epigastric tenderness to palpation - Extremities Exam Extremities exam: Positive for: normal inspection. Negative for: pedal edema - Neurological Exam Neurological exam: Alert - Psychiatric Exam Psychiatric exam: Normal Affect, Normal Mood - Skin Skin Exam: Dry, Intact, Normal Color, Warm Results - Vital Signs Recent Vital Signs: Last Vital Signs Temp 97.8 F 11/26/16 07:39 Pulse 63 11/26/16 07:39 Resp 20 11/26/16 07:39 BP 164/85 H 11/26/16 07:39 Pulse Ox 99 11/26/16 07:39 - Labs Result Diagrams: 11/26/16 00:46 11/26/16 00:46 Assessment & Plan - Assessment and Plan (Free Text) Assessment: 36 year old female with history of Hypertension with medication noncompliance leading to admission (11/08/16) and discharge 11/19/16 for hypertensive urgency, NSTEMI, and acute renal failure initiated on hemodialysis with placement of peritoneal catheter presenting with vomiting and epigastric pain. CT A/P without contrast showed no acute pathology. No prior EGD or colonoscopy. Plan: >DDx: Dyspepsia, PUD, Uremic vomiting, H pylori >history of NSAID use >PPI PO ACB >clear liquid diet >supportive care: antiemetics, pain control >recommend avoidance of opioid analgesics >bowel regimen: Miralax daily >scheduled for EGD tomorrow () >NPO after midnight >further recommendations after endoscopic evaluation <Scott Cruz - Last Filed: 11/26/16 14:18> Meds - Medications Medications: Current Medications Amlodipine Besylate (Norvasc) 10 mg PO DAILY [facility] Last Admin: 11/26/16 10:00 Dose: Not Given Aspirin (Ecotrin) 81 mg PO DAILY [facility] Last Admin: 11/26/16 10:58 Dose: 81 mg Calcium Acetate (Phoslo) 667 mg PO TIDCC [facility] Last Admin: 11/26/16 12:30 Dose: 667 mg Clonidine HCl (Catapres) 0.1 mg PO BID [facility] Last Admin: 11/26/16 10:00 Dose: Not Given Escitalopram Oxalate (Lexapro) 10 mg PO DAILY [facility] Last Admin: 11/26/16 10:58 Dose: 10 mg Ferrous Sulfate (Feosol) 325 mg PO DAILY [facility] Last Admin: 11/26/16 10:59 Dose: 325 mg Hydromorphone HCl (Dilaudid) 1 mg IVP Q8H PRN PRN Reason: Pain, severe (8-10) Labetalol HCl (Normodyne) 300 mg PO TID [facility] Last Admin: 11/26/16 13:37 Dose: Not Given Minoxidil (Minoxidil) 5 mg PO BID [facility] Last Admin: 11/26/16 10:00 Dose: Not Given Ondansetron HCl (Zofran Inj) 4 mg IVP Q4H PRN PRN Reason: Nausea/Vomiting Stop: 11/27/16 03:14 Last Admin: 11/26/16 08:09 Dose: 4 mg Pantoprazole Sodium (Protonix Ec Tab) 40 mg PO ACB [facility] Results - Vital Signs Recent Vital Signs: Last Vital Signs Temp 97.8 F 11/26/16 07:39 Pulse 63 11/26/16 07:39 Resp 20 11/26/16 07:39 BP 164/85 H 11/26/16 07:39 Pulse Ox 99 11/26/16 07:39 - Labs Result Diagrams: 11/26/16 00:46 11/26/16 00:46 Attending/Attestation - Attestation I have personally seen and examined this patient.: Yes I have fully participated in the care of the patient.: Yes I have reviewed all pertinent clinical information: Yes Notes (Text): 11/26/16 14:11 I have seen and examined patient with GI fellow. Agree with above documentation with the following additions. In brief, this is a 36 year old female with history of HTN, ESRD on PD, who presented to hospital with complaint of abdominal pain and vomiting which began yesterday at 9 pm. Prior to this she was in usual state of health, though she has been describing ongoing nausea for the past 2 weeks. She ate a tuna fish sandwich prior to symptom onset and describes a "burning" epigastric discomfort that at times radiates to back, 8/10 intensity and worsened by meal consumption. She reports multiple episodes of non-bloody emesis. She denies fever/chills, weight loss, rectal bleeding, change in bowel habits, sick contacts, or unusual food consumption. She does report prior frequent history of NSAID use, though has not used medication for past 2 weeks. No prior endoscopic evaluation. HTN ESRD on PD Abdominal pain, vomiting CT imaging reviewed by me showing ?transverse wall thickening (not seen on my evaluation of images), intrarenal calculus - Liquid diet as tolerated - Pain control, NSAID avoidance - Anti-emetic therapy PRN - Will plan for EGD evaluation tomorrow given sudden onset abdominal pain which has persisted for over 24 hours, prior NSAID use, in order to rule out peptic ulcer disease, gastritis, esophagitis - Would continue with PPI therapy for time being. NPO after midnight.
--- NOTE | 2016-11-26 15:24 | CP.PCM.CON ---
History of Present Illness - History of Present Illness History of Present Illness: 36 year old female with history of hypertension with medication noncompliance leading to admission (11/08/16) and discharge 11/19/16 for hypertensive urgency, NSTEMI, and acute renal failure initiated on hemodialysis with placement of peritoneal catheter ,presenting with vomiting and epigastric pain. Patient describes generalized symptoms of nausea and vomiting two weeks prior to admission on 11/08/16 with associated left lower abdomen pain resolved by discharge (11/1216). She notes sudden onset of epigastric pain/burning at 9PM last night without relief after eating a tuna sandwich and taking her renal medications. Associated multiple episodes of bilious vomitus. Notes daily bowel habit every two days without straining. Denies heartburn, indigestion, acid reflux, hematemesis, diarrhea, melena, hematochezia, unintentional weight loss. No prior antiacid use. Denies regular intake of tomato, garlic, onion, chocolate , coffee, mint, or citrus. Notes intentional 12 pound weight loss with diet and exercise. Admits to regular NSAID use prior to admission on 11/08/16. Last HD on Thursday at [facility]. History of polysubstance abuse, including heroin. Per HD unit, pt complaining of incisional pain to nurses, but family indicates pt was in no distress at home. Concern for drug seeking behavior. HD scheduled for today at . Multiple requests for pain medicine and sleeping medicine during interview. Review of Systems - Constitutional Constitutional: absent: Fatigue, Fever - EENT Eyes: absent: Blurred Vision, Decreased Night Vision Nose/Mouth/Throat: absent: Epistaxis, Nasal Congestion - Cardiovascular Cardiovascular: absent: Chest Pain, Diaphoresis - Respiratory Respiratory: absent: Cough, Hemoptysis - Gastrointestinal Gastrointestinal: Abdominal Pain, Vomiting. absent: Bloating, Early Satiety - Musculoskeletal Musculoskeletal: absent: Abnormal Gait, Arthralgias - Neurological Neurological: absent: Abnormal Gait, Abnormal Hearing - Psychiatric Psychiatric: Abnormal Sleep Pattern - Hematologic/Lymphatic Hematologic: absent: Easy Bleeding, Easy Bruising Past Patient History - Past Medical History & Family History Past Medical History?: Yes - Past Social History Smoking Status: Heavy Smoker > 10 Cigarettes Daily Drugs: Opiates - CARDIAC Hx Cardiac Disorders: Yes Hx Congestive Heart Failure: Yes Hx Heart Attack: Yes Hx Hypertension: Yes - PULMONARY Hx Respiratory Disorders: No - NEUROLOGICAL Hx Neurological Disorder: No - HEENT Hx HEENT Problems: No Other/Comment: eyeglasses for reading - RENAL Date of Last Dialysis Treatment: 11/24/16 - ENDOCRINE/METABOLIC Hx Endocrine Disorders: No - HEMATOLOGICAL/ONCOLOGICAL Hx Blood Disorders: Yes Hx Anemia: Yes - INTEGUMENTARY Hx Dermatological Problems: No - MUSCULOSKELETAL/RHEUMATOLOGICAL Hx Falls: No - GASTROINTESTINAL Hx Gastrointestinal Disorders: No - GENITOURINARY/GYNECOLOGICAL Hx Genitourinary Disorders: No - PSYCHIATRIC Hx Substance Use: No - SURGICAL HISTORY Hx Surgeries: Yes Other/Comment: Insertion of peritoneal catheter /tenchoff cath - ANESTHESIA Hx Anesthesia: Yes Hx Anesthesia Reactions: No Hx Malignant Hyperthermia: No Has any member of the family had a problem w/ anesthesia?: No Meds Allergies/Adverse Reactions: Allergies Allergy/AdvReac Type Severity Reaction Status Date / Time No Known Allergies Allergy Verified 11/26/16 00:17 - Medications Medications: Current Medications Amlodipine Besylate (Norvasc) 10 mg PO DAILY [facility] Last Admin: 11/26/16 10:00 Dose: Not Given Aspirin (Ecotrin) 81 mg PO DAILY [facility] Last Admin: 11/26/16 10:58 Dose: 81 mg Calcium Acetate (Phoslo) 667 mg PO TIDCC [facility] Last Admin: 11/26/16 12:30 Dose: 667 mg Clonidine HCl (Catapres) 0.1 mg PO BID [facility] Last Admin: 11/26/16 10:00 Dose: Not Given Escitalopram Oxalate (Lexapro) 10 mg PO DAILY [facility] Last Admin: 11/26/16 10:58 Dose: 10 mg Ferrous Sulfate (Feosol) 325 mg PO DAILY [facility] Last Admin: 11/26/16 10:59 Dose: 325 mg Hydromorphone HCl (Dilaudid) 1 mg IVP Q8H PRN PRN Reason: Pain, severe (8-10) Labetalol HCl (Normodyne) 300 mg PO TID [facility] Last Admin: 11/26/16 13:37 Dose: Not Given Minoxidil (Minoxidil) 5 mg PO BID [facility] Last Admin: 11/26/16 10:00 Dose: Not Given Ondansetron HCl (Zofran Inj) 4 mg IVP Q4H PRN PRN Reason: Nausea/Vomiting Stop: 11/27/16 03:14 Last Admin: 11/26/16 08:09 Dose: 4 mg Pantoprazole Sodium (Protonix Ec Tab) 40 mg PO ACB [facility] Physical Exam - Constitutional Appears: No Acute Distress - Head Exam Head Exam: ATRAUMATIC - Eye Exam Eye Exam: EOMI, Normal appearance - ENT Exam ENT Exam: Mucous Membranes Moist - Neck Exam Neck exam: Positive for: Full Rom. Negative for: Lymphadenopathy - Respiratory Exam Respiratory Exam: Clear to Auscultation Bilateral. absent: Accessory Muscle Use - Cardiovascular Exam Cardiovascular Exam: REGULAR RHYTHM. absent: Rubs - GI/Abdominal Exam GI & Abdominal Exam: Normal Bowel Sounds, Soft Additional comments: minimal tenderness in epigastrium - Extremities Exam Extremities exam: Negative for: pedal edema - Neurological Exam Neurological exam: Alert, Oriented x3 Results - Vital Signs Recent Vital Signs: Last Vital Signs Temp 97.8 F 11/26/16 07:39 Pulse 63 11/26/16 07:39 Resp 20 11/26/16 07:39 BP 164/85 H 11/26/16 07:39 Pulse Ox 99 11/26/16 07:39 - Labs Result Diagrams: 11/26/16 00:46 11/26/16 00:46 Assessment & Plan - Assessment and Plan (Free Text) Assessment: new esrd c/o epigastric tenderness and vomiting ct scan unremarkable, PD catheter in good position for egd in am maint HD ?drug seeking behavior
[2016-11-26] MEDS: HYDROmorphone 1 mg/ml ISec IVP PRN (15:26)
--- NOTE | 2016-11-26 17:41 | CP.PCM.HP ---
Past Patient History - Past Medical History & Family History Past Medical History?: Yes - Past Social History Smoking Status: Heavy Smoker > 10 Cigarettes Daily Drugs: Opiates - CARDIAC Hx Cardiac Disorders: Yes Hx Congestive Heart Failure: Yes Hx Heart Attack: Yes Hx Hypertension: Yes - PULMONARY Hx Respiratory Disorders: No - NEUROLOGICAL Hx Neurological Disorder: No - HEENT Hx HEENT Problems: No Other/Comment: eyeglasses for reading - RENAL Date of Last Dialysis Treatment: 11/24/16 - ENDOCRINE/METABOLIC Hx Endocrine Disorders: No - HEMATOLOGICAL/ONCOLOGICAL Hx Blood Disorders: Yes Hx Anemia: Yes - INTEGUMENTARY Hx Dermatological Problems: No - MUSCULOSKELETAL/RHEUMATOLOGICAL Hx Falls: No - GASTROINTESTINAL Hx Gastrointestinal Disorders: No - GENITOURINARY/GYNECOLOGICAL Hx Genitourinary Disorders: No - PSYCHIATRIC Hx Substance Use: No - SURGICAL HISTORY Hx Surgeries: Yes Other/Comment: Insertion of peritoneal catheter /tenchoff cath - ANESTHESIA Hx Anesthesia: Yes Hx Anesthesia Reactions: No Hx Malignant Hyperthermia: No Has any member of the family had a problem w/ anesthesia?: No Meds Allergies/Adverse Reactions: Allergies Allergy/AdvReac Type Severity Reaction Status Date / Time No Known Allergies Allergy Verified 11/26/16 00:17 Physical Exam - Constitutional Appears: Well - Head Exam Head Exam: ATRAUMATIC, NORMAL INSPECTION, NORMOCEPHALIC - Eye Exam Eye Exam: EOMI, Normal appearance, PERRL Pupil Exam: NORMAL ACCOMODATION, PERRL - ENT Exam ENT Exam: Mucous Membranes Moist, Normal Exam - Neck Exam Neck exam: Positive for: Normal Inspection - Respiratory Exam Respiratory Exam: Decreased Breath Sounds - Cardiovascular Exam Cardiovascular Exam: REGULAR RHYTHM, +S1, +S2 - GI/Abdominal Exam GI & Abdominal Exam: Diminished Bowel Sounds, Soft - Rectal Exam Rectal Exam: Deferred Results - Vital Signs Recent Vital Signs: Last Vital Signs Temp 98.1 F 11/26/16 13:15 Pulse 71 11/26/16 16:15 Resp 18 11/26/16 13:15 BP 182/103 H 11/26/16 16:15 Pulse Ox 97 11/26/16 16:15 - Labs Result Diagrams: 11/26/16 00:46 11/26/16 00:46
[2016-11-26 22:50] LABS: BARBITURATES, UR NEGATIVE (NEGATIVE)
[2016-11-26 22:52] LABS: BENZODIAZEPINES, UR POSITIVE (NEGATIVE)
[2016-11-26 22:55] LABS: PHENCYCLIDINE, UR NEGATIVE (NEGATIVE)
[2016-11-26 22:56] LABS: OPIATES, UR POSITIVE (NEGATIVE)
[2016-11-27 06:36] LABS: BASO # 0.1 K/uL (0.0-0.2); BASO % 0.9 % (0.0-2.0); EOS # 0.2 K/uL (0.0-0.7); HEMOGLOBIN 10.7 g/dL (11.0-16.0); LYMPH # 1.2 K/uL (1.0-4.3); LYMPH % 13.2 % (20.0-40.0); MEAN CELL VOLUME 80.4 fL (81.0-99.0); MEAN CORPUSCULAR HEMOGLOBIN 25.5 pg (27.0-31.0); MEAN CORPUSCULAR HGB CONC 31.7 g/dL (33.0-37.0); MEAN PLATELET VOLUME 7.4 fL (7.2-11.7); MONO # 0.6 K/uL (0.0-0.8); MONO % 6.8 % (0.0-10.0); NEUT # 6.7 K/uL (1.8-7.0); NEUT % 77.1 % (50.0-75.0); RBC 4.19 Mil/uL (3.80-5.20); RED CELL DISTRIBUTION WIDTH 25.6 % (11.5-14.5); WHITE BLOOD COUNT 8.7 K/uL (4.8-10.8)
[2016-11-27 07:21] LABS: ALBUMIN 3.6 g/dL (3.5-5.0)
[2016-11-27 07:24] LABS: ALB/GLOB RATIO 1.4 (1.0-2.1)
[2016-11-27 07:25] LABS: CALCIUM 9.3 mg/dl (8.6-10.4)
[2016-11-27] MEDS ORDERED: Pantoprazole 40 mg EC Tab PO SCH (07:30)
[2016-11-27] MEDS: Labetalol Hydrochloride 300 mg Tab PO SCH ×2 (09:35→14:24)
[2016-11-27] MEDS ORDERED: POLYETHYLENE GLYCOL 3350 17 GM/Dose PACKET PO SCH (10:00)
--- NOTE | 2016-11-27 10:49 | CP.PCM.PN ---
Subjective - Date & Time of Evaluation Date of Evaluation: 11/20/16 Time of Evaluation: 10:46 - Subjective Subjective: Still c/o epigastric pains For EGD now s/p diALYSIS 11/26- TOLERATED WELL BP MOD elevated Mod nauseous NO CPs, V, F, CHILLS, DIARRHEA Objective - Vital Signs/Intake and Output Vital Signs (last 24 hours): Temp Pulse Resp BP Pulse Ox 99.0 F 70 20 161/92 H 97 11/27/16 09:05 11/27/16 09:05 11/27/16 09:05 11/27/16 09:05 11/27/16 09:05 Intake and Output: 11/27/16 11/27/16 06:59 18:59 Intake Total 340 Balance 340 - Medications Medications: Current Medications Amlodipine Besylate (Norvasc) 10 mg PO DAILY [facility] Last Admin: 11/26/16 17:20 Dose: 10 mg Aspirin (Ecotrin) 81 mg PO DAILY [facility] Last Admin: 11/26/16 10:58 Dose: 81 mg Calcium Acetate (Phoslo) 667 mg PO TIDCC [facility] Last Admin: 11/27/16 08:16 Dose: Not Given Clonidine HCl (Catapres) 0.1 mg PO BID [facility] Last Admin: 11/27/16 10:30 Dose: Not Given Escitalopram Oxalate (Lexapro) 10 mg PO DAILY [facility] Last Admin: 11/26/16 10:58 Dose: 10 mg Ferrous Sulfate (Feosol) 325 mg PO DAILY [facility] Last Admin: 11/26/16 10:59 Dose: 325 mg Hydromorphone HCl (Dilaudid) 1 mg IVP Q8H PRN PRN Reason: Pain, severe (8-10) Last Admin: 11/26/16 15:26 Dose: 1 mg Labetalol HCl (Normodyne) 300 mg PO TID [facility] Last Admin: 11/27/16 09:35 Dose: 300 mg Minoxidil (Minoxidil) 5 mg PO BID [facility] Last Admin: 11/27/16 10:30 Dose: Not Given Pantoprazole Sodium (Protonix Ec Tab) 40 mg PO ACB [facility] Last Admin: 11/27/16 08:16 Dose: Not Given Polyethylene Glycol (Miralax) 17 gm PO DAILY [facility] - Labs Labs: 11/27/16 06:26 11/27/16 06:26 PT 11.1 SECONDS (9.7-12.2) 11/26/16 00:46 INR 1.0 11/26/16 00:46 APTT 26 SECONDS (21-34) 11/26/16 00:46 - Constitutional Appears: No Acute Distress, Chronically Ill - Head Exam Head Exam: ATRAUMATIC, NORMAL INSPECTION - Eye Exam Eye Exam: EOMI, Normal appearance - Neck Exam Neck Exam: Normal Inspection. absent: Tenderness - Respiratory Exam Respiratory Exam: Clear to Ausculation Bilateral, NORMAL BREATHING PATTERN - Cardiovascular Exam Cardiovascular Exam: REGULAR RHYTHM, +S1 - GI/Abdominal Exam GI & Abdominal Exam: Soft, Tenderness - Extremities Exam Extremities Exam: Normal Inspection. absent: Tenderness - Neurological Exam Neurological Exam: Alert, CN II-XII Intact, Oriented x3 - Skin Skin Exam: Dry, Warm Assessment and Plan (1) Hypertensive chronic kidney disease with stage 5 chronic kidney disease or end stage renal disease Status: Acute (2) End stage renal disease Status: Acute (3) Abdominal pain Status: Acute (4) Nausea Status: Acute - Assessment and Plan (Free Text) Plan: Increase BP meds PPIs HD in AM Await EGD results
[2016-11-27] MEDS ORDERED: Propofol 10 mg/ml Inj (20 ML) ONE ×2 (11:32→11:42)
[2016-11-27] MEDS ORDERED: Metoprolol 1 mg/ml Inj IVP ONE (11:55)
--- NOTE | 2016-11-27 11:58 | CP.PCM.PN ---
Subjective - Date & Time of Evaluation Date of Evaluation: 11/27/16 Time of Evaluation: 11:55 - Subjective Subjective: Patient seen and examined, resting comfortably in bed. No acute events overnight. She still complains of abdominal discomfort, though improved compared to yesterday. She denies vomiting, fever/chills. S/p EGD today showing gastritis, hiatal hernia. Objective - Vital Signs/Intake and Output Vital Signs (last 24 hours): Temp Pulse Resp BP Pulse Ox 99.0 F 69 20 181/101 H 100 11/27/16 11:29 11/27/16 11:29 11/27/16 11:29 11/27/16 11:29 11/27/16 11:29 Intake and Output: 11/27/16 11/27/16 06:59 18:59 Intake Total 340 0 Balance 340 0 - Medications Medications: Current Medications Amlodipine Besylate (Norvasc) 10 mg PO DAILY [facility] Last Admin: 11/26/16 17:20 Dose: 10 mg Aspirin (Ecotrin) 81 mg PO DAILY [facility] Last Admin: 11/26/16 10:58 Dose: 81 mg Calcium Acetate (Phoslo) 667 mg PO TIDCC [facility] Last Admin: 11/27/16 08:16 Dose: Not Given Clonidine HCl (Catapres) 0.2 mg PO BID [facility] Escitalopram Oxalate (Lexapro) 10 mg PO DAILY [facility] Last Admin: 11/26/16 10:58 Dose: 10 mg Ferrous Sulfate (Feosol) 325 mg PO DAILY [facility] Last Admin: 11/26/16 10:59 Dose: 325 mg Hydromorphone HCl (Dilaudid) 1 mg IVP Q8H PRN PRN Reason: Pain, severe (8-10) Last Admin: 11/26/16 15:26 Dose: 1 mg Labetalol HCl (Normodyne) 300 mg PO TID [facility] Last Admin: 11/27/16 09:35 Dose: 300 mg Minoxidil (Minoxidil) 5 mg PO BID [facility] Last Admin: 11/27/16 10:30 Dose: Not Given Pantoprazole Sodium (Protonix Ec Tab) 40 mg PO ACB [facility] Last Admin: 11/27/16 08:16 Dose: Not Given Polyethylene Glycol (Miralax) 17 gm PO DAILY [facility] - Labs Labs: 11/27/16 06:26 11/27/16 06:26 PT 11.1 SECONDS (9.7-12.2) 11/26/16 00:46 INR 1.0 11/26/16 00:46 APTT 26 SECONDS (21-34) 11/26/16 00:46 Assessment and Plan - Assessment and Plan (Free Text) Assessment: HTN ESRD on HD Abdominal pain - s/p EGD showing gastritis and hiatal hernia Plan: - Will advance diet slowly as tolerated - Continue with oral PPI therapy once daily - Follow up EGD biopsy results - Anti-emetic therapy PRN - If patient tolerating diet, from GI perspective ok to discharge home with subsequent outpatient follow up. Will sign off case, please reconsult as necessary, thank you.
[2016-11-27] MEDS: HYDROmorphone 1 mg/ml ISec IVP PRN (13:38)
--- NOTE | 2016-11-27 14:48 | CARD ---
APPROVED REPORT EKG Measurement Heart [id number] <Conclusion> Normal sinus rhythm Left ventricular hypertrophy with repolarization abnormality Abnormal ECG
[2016-11-27 16:19] VITALS: BP 180/92; PULSE 63; RESP 20; TEMP 98.3; O2SAT 97
--- NOTE | 2016-11-27 17:12 | CP.PCM.PN ---
Subjective - Date & Time of Evaluation Date of Evaluation: 11/27/16 Time of Evaluation: 17:07 - Subjective Subjective: 36 Y/O FEMALE SEEN AND EXAMINED TODAY BY DR Denis BURNS, DENIES ANY PAIN, N/V/D, RESP EASY AND UNLABORED, NAD Objective - Vital Signs/Intake and Output Vital Signs (last 24 hours): Temp Pulse Resp BP Pulse Ox 98.3 F 63 20 180/92 H 97 11/27/16 15:00 11/27/16 15:00 11/27/16 15:00 11/27/16 15:00 11/27/16 15:00 Intake and Output: 11/27/16 11/27/16 06:59 18:59 Intake Total 340 50 Balance 340 50 - Medications Medications: Current Medications Amlodipine Besylate (Norvasc) 10 mg PO DAILY [facility] Last Admin: 11/27/16 12:43 Dose: Not Given Aspirin (Ecotrin) 81 mg PO DAILY [facility] Last Admin: 11/27/16 13:11 Dose: Not Given Calcium Acetate (Phoslo) 667 mg PO TIDCC [facility] Last Admin: 11/27/16 13:12 Dose: Not Given Clonidine HCl (Catapres) 0.2 mg PO BID [facility] Last Admin: 11/27/16 13:10 Dose: Not Given Escitalopram Oxalate (Lexapro) 10 mg PO DAILY [facility] Last Admin: 11/27/16 13:11 Dose: Not Given Ferrous Sulfate (Feosol) 325 mg PO DAILY [facility] Last Admin: 11/27/16 13:11 Dose: Not Given Hydromorphone HCl (Dilaudid) 1 mg IVP Q8H PRN PRN Reason: Pain, severe (8-10) Last Admin: 11/27/16 13:38 Dose: 1 mg Labetalol HCl (Normodyne) 300 mg PO TID [facility] Last Admin: 11/27/16 14:24 Dose: 300 mg Minoxidil (Minoxidil) 5 mg PO BID [facility] Last Admin: 11/27/16 10:30 Dose: Not Given Ondansetron HCl (Zofran Inj) 4 mg IVP Q6H PRN PRN Reason: Nausea/Vomiting Last Admin: 11/27/16 15:07 Dose: 4 mg Pantoprazole Sodium (Protonix Ec Tab) 40 mg PO ACB [facility] Last Admin: 11/27/16 08:16 Dose: Not Given Polyethylene Glycol (Miralax) 17 gm PO DAILY [facility] Last Admin: 11/27/16 12:43 Dose: Not Given - Labs Labs: 11/27/16 06:26 11/27/16 06:26 PT 11.1 SECONDS (9.7-12.2) 11/26/16 00:46 INR 1.0 11/26/16 00:46 APTT 26 SECONDS (21-34) 11/26/16 00:46 Assessment and Plan - Assessment and Plan (Free Text) Plan: 36 Y/O FEMALE WITH PMHX HTN, ESRD ON HD, ADMITTED FOR ABD PAIN, INTRACTIVE VOMITING, EGD SHOWING GASTRITIS AND HIATAL HERNIA, TOLERATING REGULAR DIET, DENIES ANY PAIN, N/V, RX FOR ORAL PPI, FOLLOW UP WITH RESULTS, FOLLOW UP WITH PMD AND GI, CONTINUE HD, RETURN TO ED IF ANY WORSENING S/S. AGREE W/POC, VERBALIZE UNDERSTANDING.
== END 2016-11-27 17:50 | disposition home or self-care (01) ==
LOC: C.ER 00:12 → C.3T 03:11
PROVIDERS: ADMIT Internal Medicine Nephrology; ATTEND Internal Medicine Nephrology
DX: K29.70 Gastritis, unspecified, without bleeding (principal); K44.9 Diaphragmatic hernia without obstruction or gangrene

== ENCOUNTER 2016-11-29 11:30 | Inpatient (IN) | payer OTHER ==
[2016-11-29] MEDS ORDERED: Sodium Chloride 0.9% 250 ML IV ONE ×2 (11:53→12:10)
--- NOTE | 2016-11-29 11:58 | C.PDOC ---
History Of Present Illness Patient BIBA for evaluation of upper abdominal pain, nausea and vomiting since yesterday. Patient has h/o anemia, HTN, NSTEMI, CKD recently started on hemodialysis, to be converted to peritoneal dialysis soon. Last HD was yesterday. Patient discharged on 11/27 for similar complaints, is s/p EGD on that shows gastritis. Patient started on PO Protonix, states it is not helping. Time Seen by Provider: 11/29/16 11:42 Chief Complaint (Nursing): Abdominal Pain History Per: Patient History/Exam Limitations: no limitations Onset/Duration Of Symptoms: Days Current Symptoms Are (Timing): Still Present Severity: Moderate Location Of Pain/Discomfort: Epigastric Quality Of Discomfort: "Pain" Associated Symptoms: Nausea, Vomiting Abnormal Vaginal Bleeding: No Past Medical History Reviewed: Historical Data, Nursing Documentation, Vital Signs Vital Signs: Last Vital Signs Temp 97.8 F 12/05/16 08:45 Pulse 67 12/05/16 08:45 Resp 18 12/05/16 08:45 BP 108/66 12/05/16 09:45 Pulse Ox 96 12/05/16 08:45 - Medical History PMH: Anemia, CHF, Depression, HTN, Chronic Kidney Disease - [employer] Procedures INSERT OF INFUSION DEV INTO PERITON CAV, PERC ENDO APPROACH (11/08/16) IRRIGATION OF PERITON CAV USING DIALYSATE, PERC APPROACH (11/08/16) Family History: States: No Known Family Hx - Social History Hx Alcohol Use: Yes Hx Substance Use: No - Immunization History Hx Tetanus Toxoid Vaccination: No Hx Influenza Vaccination: No Hx Pneumococcal Vaccination: No Review Of Systems Except As Marked, All Systems Reviewed And Found Negative. Constitutional: Negative for: Fever, Chills Cardiovascular: Negative for: Chest Pain, Palpitations Respiratory: Negative for: Cough, Shortness of Breath Gastrointestinal: Positive for: Nausea, Vomiting, Abdominal Pain. Negative for : Diarrhea Physical Exam - Physical Exam Appears: Well, Non-toxic, In Acute Distress (in moderate pain, tearful) Skin: Normal Color, Warm, Dry Oral Mucosa: Moist Cardiovascular: Rhythm Regular Respiratory: Normal Breath Sounds, No Accessory Muscle Use, No Rales, No Rhonchi , No Wheezing Gastrointestinal/Abdominal: Bowel Sounds, Soft, Tenderness (epigastric TTP, (-) Hernandez's, (-) McBurney's), No Guarding, No Rebound, Other (scattered well healing wounds (for peritoneal dialysis)) Back: No CVA Tenderness Extremity: Normal ROM, No Calf Tenderness Pulses: Left Dorsalis Pedis: Normal, Right Dorsalis Pedis: Normal Neurological/Psych: Oriented x3 ED Course And Treatment - Laboratory Results Result Diagrams: 12/05/16 08:10 12/05/16 08:10 ECG: Interpreted By Me, Viewed By Me (NSR 76 bpm, left axis deviation, LVH, no acute ST/T wave changes) ECG Interpretation: No Acute Changes O2 Sat by Pulse Oximetry: 100 (RA) Pulse Ox Interpretation: Normal - Radiology CXR: Interpreted by Me, Viewed By Me CXR Interpretation: Yes: Other (no effusions). No: No Acute Disease, Infiltrates Progress Note: Blood work ordered and reviewed. Patient given IV zofran and IV protonix. Patient continued to have pain and nausea, IV morphine ordered . PO HTN meds also ordered. Reevaluation Time: 12:45 Reassessment Condition: Unchanged (Patient's pain and nausea/vomiting only miinimally/trasiently improved. Patient uncomfortable being discharged home, will speak with PMD.) - Physician Consult Information Physician Contacted: Vanessa Orr Outcome Of Conversation: Discussed patient with PMD, he agrees with admission to his service. Medical Decision Making Medical Decision Making: differential diagnoses considered: gastritis, pancreatitis, PUD, GERD, cholecystitis, cholangitis, gastroparesis, nephrolithiasis, pyelopnehritis, peritonitis, NM/ACS, PE, gastroenteritis, colitis, aortic dissection, malingering/drug seeking Disposition - Disposition Disposition: HOSPITALIZED Disposition Time: 12:50 Condition: STABLE - Clinical Impression Clinical Impression: Hypokalemia, Nausea & vomiting, Intractable abdominal pain, Uncontrolled hypertension, ESRD (end stage renal disease) Decision To Admit - Pt Status Changed To: Hospital Disposition Of: Inpatient - Admit Certification Admit to Inpatient:: After my assessment, the patient will require hospitalization for at least two midnights. This is because of the severity of symptoms shown, intensity of services needed, and/or the medical risk in this patient being treated as an outpatient. - InPatient: Physician Admission Certification:: see notes - . Bed Request Type: Regular Admitting Physician: Vanessa Orr Patient Diagnosis: ESRD (end stage renal disease)
[2016-11-29 12:15] LABS: BASO # 0.1 K/uL (0.0-0.2); EOS % 0.4 % (0.0-4.0); HEMATOCRIT 37.8 % (34.0-47.0); LYMPH # 0.7 K/uL (1.0-4.3); MEAN CORPUSCULAR HEMOGLOBIN 25.7 pg (27.0-31.0); MEAN CORPUSCULAR HGB CONC 32.5 g/dL (33.0-37.0); MEAN PLATELET VOLUME 7.3 fL (7.2-11.7); MONO # 0.4 K/uL (0.0-0.8); MONO % 3.7 % (0.0-10.0); PLATELET COUNT 315 K/uL (130-400); RED CELL DISTRIBUTION WIDTH 24.8 % (11.5-14.5); WHITE BLOOD COUNT 9.6 K/uL (4.8-10.8)
[2016-11-29 12:27] LABS: RBC URINE 4 /hpf (0-3); URINE BACTERIA RARE (<OCC); URINE BILIRUBIN NEGATIVE (NEGATIVE); URINE BLOOD NEGATIVE (NEGATIVE); URINE COLOR Yellow (YELLOW); URINE GLUCOSE (UA) NORMAL (Normal); URINE HYALINE CAST 0-2 /lpf (0-2); URINE KETONE TRACE mg/dL (NEGATIVE); URINE LEUKOCYTE ESTERASE NEG Leu/uL (Negative); URINE PROTEIN 2+ mg/dL (NEGATIVE); URINE UROBILINOGEN NORMAL mg/dL (0.2-1.0); WBC URINE 5 /hpf (0-5)
[2016-11-29 12:28] LABS: ALB/GLOB RATIO 1.4 (1.0-2.1); TOTAL PROTEIN 7.5 g/dL (6.3-8.3)
[2016-11-29 12:29] LABS: CALCIUM 9.8 mg/dl (8.6-10.4)
[2016-11-29] MEDS ORDERED: Morphine 4 MG/ML VIAL ONE (12:35)
[2016-11-29 12:59] LABS: EOSINOPHIL 1 % (0-4); NEUTROPHIL 90 % (50-75); TOTAL CELLS COUNTED 100
[2016-11-29 13:02] LABS: LARGE PLATELETS PRESENT
--- NOTE | 2016-11-29 13:33 | RAD ---
PROCEDURE: CHEST RADIOGRAPH, 1 VIEW HISTORY: epigastric pain COMPARISON: Comparison chest 11/13/2016. FINDINGS: LUNGS: Previously noted pulmonary vascular congestive changes resolved. In situ right IJ dialysis catheter with tip in the SVC PLEURA: No pneumothorax or pleural fluid seen. CARDIOVASCULAR: Heart remains enlarged. OSSEOUS STRUCTURES: No significant abnormalities. VISUALIZED UPPER ABDOMEN: Normal. OTHER FINDINGS: None. IMPRESSION: Interval resolution previously noted pulmonary vascular congestion. Cardiomegaly. In situ right IJ dialysis catheter as described
[2016-11-29] MEDS: Labetalol Hydrochloride 300 mg Tab PO SCH (17:55)
[2016-11-29] MEDS ORDERED: Potassium Chloride 20 mEq ER Tab PO ONE (18:00)
--- NOTE | 2016-11-29 20:12 | CP.PCM.HP ---
History of Present Illness - History of Present Illness History of Present Illness: 36 years old female patient with past medical history of anemia, hypertension, CHF, CKD recently started on hemodialysis brought in by ambulance to the emergency department with complaint of nausea, vomiting, upper abdominal pain since yesterday. Recently discharged on 11/27, EGD showed gastritis and started on Protonix but patient states that it is not helping. No fever, chills, cough, shortness of breath No chest pain, palpitation Social EtOH user, cigarette smoker Present on Admission - Present on Admission Any Indicators Present on Admission: No Past Patient History - Past Medical History & Family History Past Medical History?: Yes - Past Social History Smoking Status: Current Some Days Smoker - CARDIAC Hx Congestive Heart Failure: Yes Hx Hypertension: Yes - PULMONARY Hx Respiratory Disorders: No - NEUROLOGICAL Hx Neurological Disorder: No - HEENT Hx HEENT Problems: No Other/Comment: eyeglasses for reading - RENAL Hx Chronic Kidney Disease: Yes Hx Dialysis: Yes Type of Dialysis Access: permacath, peritoneal Date of Last Dialysis Treatment: 11/28/16 Hx Kidney Stones: Yes (8 years ago) - ENDOCRINE/METABOLIC Hx Endocrine Disorders: No - HEMATOLOGICAL/ONCOLOGICAL Hx Anemia: Yes - INTEGUMENTARY Hx Dermatological Problems: No - MUSCULOSKELETAL/RHEUMATOLOGICAL Hx Falls: No - GASTROINTESTINAL Hx Gastrointestinal Disorders: No - GENITOURINARY/GYNECOLOGICAL Hx Genitourinary Disorders: No - PSYCHIATRIC Hx Anxiety: Yes Hx Depression: Yes Hx Substance Use: No - SURGICAL HISTORY Hx Surgeries: Yes Other/Comment: Insertion of peritoneal catheter /tenchoff cath - ANESTHESIA Hx Anesthesia: Yes Hx Anesthesia Reactions: No Hx Malignant Hyperthermia: No Meds Allergies/Adverse Reactions: Allergies Allergy/AdvReac Type Severity Reaction Status Date / Time No Known Allergies Allergy Verified 12/31/16 14:10 Results - Vital Signs Recent Vital Signs: Last Vital Signs Temp 98.6 F 11/29/16 15:53 Pulse 63 11/29/16 15:53 Resp 20 11/29/16 15:53 BP 161/88 H 11/29/16 15:53 Pulse Ox 97 11/29/16 15:53 - Labs Result Diagrams: 12/06/16 08:58 12/06/16 08:58 Assessment & Plan (1) AMPARO (acute kidney injury) Status: Acute (2) Abdominal pain Status: Acute (3) Acute cholecystitis Status: Acute (4) Anemia Status: Acute (5) CHF (congestive heart failure) Status: Acute (6) CKD (chronic kidney disease) stage 5, GFR less than 15 ml/min Status: Acute (7) CKD stage 5 secondary to hypertension Status: Acute (8) Chest pain Status: Acute (9) Dependency on pain medication Status: Acute (10) ESRD (end stage renal disease) Status: Acute (11) ESRD (end stage renal disease) Status: Acute (12) ESRD (end stage renal disease) Status: Acute (13) Elevated lipase Status: Acute (14) End stage renal disease Status: Acute (15) HTN (hypertension) Status: Acute (16) Hypertension Status: Acute (17) Hypertension Status: Acute (18) Hypertensive chronic kidney disease with stage 5 chronic kidney disease or end stage renal disease Status: Acute (19) Hypertensive emergency Status: Acute (20) Hypertensive urgency Status: Acute (21) Hypokalemia Status: Acute (22) Hypokalemia Status: Acute (23) Hypokalemia Status: Acute (24) Hypoxia Status: Acute (25) Intractable abdominal pain Status: Acute (26) NSTEMI (non-ST elevated myocardial infarction) Status: Acute (27) Nausea Status: Acute (28) Nausea & vomiting Status: Acute (29) Nephrolithiasis Status: Acute (30) PUD (peptic ulcer disease) Status: Acute (31) Pneumonia Status: Acute (32) Prophylactic measure Status: Acute (33) Prophylactic measure Status: Acute (34) Proteinuria Status: Acute (35) Renal failure Status: Acute (36) Renal insufficiency Status: Acute (37) Uncontrolled hypertension Status: Acute (38) Vomiting Status: Acute - Assessment and Plan (Free Text) Plan: Labs and meds reviewed Imaging studies noted pain meds Antiemetic Liquid diet as tolerated Labetalol Catapres Aspirin Norvasc Protonix Gastro consult close monitoring Labs next a.m.
[2016-11-30] MEDS: Potassium Chloride 10 mEq ER Tab PO SCH ×2 (00:30→03:17)
--- NOTE | 2016-11-30 08:19 | CP.PCM.CON ---
History of Present Illness - History of Present Illness History of Present Illness: Asked by Dr. Orr for a GI consultation on this patient. 36 year old female with history of HTN, ESRD on PD, who presents to hospital with complaint of abdominal pain and vomiting. She was recently discharged from hospital 48 hours ago after being evaluated for similar complaints. After going home, she felt well and woke up the next day with sharp 8/10 intensity epigastric abdominal pain which was radiating to back. This was associated with multiple episodes of non-bloody emesis. She denies fever/chills, weight loss, sick contacts, or change in bowel habits. During recent hospitalization, she was worked up with EGD which showed mild gastritis (biopsies negative for HP) and CT imaging which did not show acute pathology. Since arrival to hospital she has not had any recurrent emesis, though she continues to endorse abdominal pain. She is tolerating PO liquids without difficulty. Social history: smokes intermittent cigarettes, social ETOH use Family history: Reviewed, patient denies history of GI malignancies Review of Systems - Review of Systems Review of Systems: - All other comprehensive 12 point review of systems performed, negative - Cardiovascular Cardiovascular: absent: Acrocyanosis, Chest Pain, Chest Pain at Rest, Chest Pain with Activity, Claudication, Diaphoresis, Dyspnea, Dyspnea on Exertion, Edema, Irregular Heart Rhythm, Pain Radiating to Arm/Neck/Jaw, Leg Edema, Leg Ulcers, Lightheadedness, Orthopnea, Palpitations, Paroxysmal Nocturnal Dyspnea, Pedal Edema, Radiating Pain, Rapid Heart Rate, Slow Heart Rate, Syncope, Other - Respiratory Respiratory: absent: Cough, Dyspnea, Hemoptysis, Dyspnea on Exertion, Wheezing, Snoring, Stridor, Pain on Inspiration, Chest Congestion, Excessive Mucous Production, Change in Mucous Color, Pain with Coughing, Other - Gastrointestinal Gastrointestinal: Abdominal Pain, Vomiting - Musculoskeletal Musculoskeletal: absent: Abnormal Gait, Arthralgias, Atrophy, Back Pain, Deformity, Joint Swelling, Limited Range of Motion, Loss of Height, Muscle Cramps, Muscle Weakness, Myalgias, Neck Pain, Numbness, Radiating Pain into Limb , Stiffness, Tingling, Other - Neurological Neurological: absent: Abnormal Gait, Abnormal Hearing, Abnormal Movements, Abnormal Speech, Behavioral Changes, Burning Sensations, Confusion, Convulsions , Disequilibrium, Dizziness, Numbness, Focal Weakness, Frequent Falls, Headaches , Lack of Coordination, Loss of Vision, Memory Loss, Paresthesias, Radicular Pain, Restless Legs, Sensory Deficit, Syncope, Tingling, Tremor, Vertigo, Weakness, Other Visual Disturbances, Other Past Patient History - Past Medical History & Family History Past Medical History?: Yes - Past Social History Smoking Status: Current Some Days Smoker - CARDIAC Hx Congestive Heart Failure: Yes Hx Hypertension: Yes - PULMONARY Hx Respiratory Disorders: No - NEUROLOGICAL Hx Neurological Disorder: No - HEENT Hx HEENT Problems: No Other/Comment: eyeglasses for reading - RENAL Hx Chronic Kidney Disease: Yes Hx Dialysis: Yes Type of Dialysis Access: permacath, peritoneal Date of Last Dialysis Treatment: 11/28/16 Hx Kidney Stones: Yes (8 years ago) - ENDOCRINE/METABOLIC Hx Endocrine Disorders: No - HEMATOLOGICAL/ONCOLOGICAL Hx Anemia: Yes - INTEGUMENTARY Hx Dermatological Problems: No - MUSCULOSKELETAL/RHEUMATOLOGICAL Hx Falls: No - GASTROINTESTINAL Hx Gastrointestinal Disorders: No - GENITOURINARY/GYNECOLOGICAL Hx Genitourinary Disorders: No - PSYCHIATRIC Hx Anxiety: Yes Hx Depression: Yes Hx Substance Use: No - SURGICAL HISTORY Hx Surgeries: Yes Other/Comment: Insertion of peritoneal catheter /tenchoff cath - ANESTHESIA Hx Anesthesia: Yes Hx Anesthesia Reactions: No Hx Malignant Hyperthermia: No Meds Allergies/Adverse Reactions: Allergies Allergy/AdvReac Type Severity Reaction Status Date / Time No Known Allergies Allergy Verified 11/29/16 11:49 - Medications Medications: Current Medications Amlodipine Besylate (Norvasc) 10 mg PO DAILY [facility] Aspirin (Ecotrin) 81 mg PO DAILY [facility] Calcium Acetate (Phoslo) 667 mg PO TIDCC [facility] Last Admin: 11/29/16 17:48 Dose: 667 mg Clonidine HCl (Catapres) 0.1 mg PO BID [facility] Last Admin: 11/29/16 17:48 Dose: 0.1 mg Escitalopram Oxalate (Lexapro) 10 mg PO DAILY [facility] Heparin Sodium (Porcine) (Heparin) 5,000 units SC Q12 [facility] Last Admin: 11/29/16 21:22 Dose: 5,000 units Labetalol HCl (Normodyne) 300 mg PO TID [facility] Last Admin: 11/29/16 17:55 Dose: 300 mg Minoxidil (Minoxidil) 5 mg PO BID [facility] Last Admin: 11/29/16 17:55 Dose: 5 mg Morphine Sulfate (Morphine) 4 mg IVP Q4 PRN PRN Reason: pain Last Admin: 11/30/16 03:15 Dose: 4 mg Ondansetron HCl (Zofran Inj) 4 mg IVP Q4 PRN PRN Reason: Nausea/Vomiting Pantoprazole Sodium (Protonix Ec Tab) 40 mg PO DAILY [facility] Physical Exam - Constitutional Appears: Non-toxic, No Acute Distress - Head Exam Head Exam: NORMAL INSPECTION - Eye Exam Eye Exam: EOMI, Normal appearance - ENT Exam ENT Exam: Mucous Membranes Moist - Respiratory Exam Respiratory Exam: Clear to Auscultation Bilateral - Cardiovascular Exam Cardiovascular Exam: REGULAR RHYTHM, +S1, +S2 - GI/Abdominal Exam GI & Abdominal Exam: Normal Bowel Sounds, Soft, Tenderness Additional comments: epigastric tenderness to palpation, no rebound/guarding no palpable hepato/splenomegaly - Extremities Exam Extremities exam: Positive for: normal inspection - Neurological Exam Neurological exam: Alert, CN II-XII Intact, Normal Gait, Oriented x3, Reflexes Normal - Psychiatric Exam Psychiatric exam: Normal Affect, Normal Mood - Skin Skin Exam: Dry, Intact, Normal Color, Warm Results - Vital Signs Recent Vital Signs: Last Vital Signs Temp 98.4 F 11/29/16 23:29 Pulse 57 L 11/29/16 23:29 Resp 20 11/29/16 23:29 BP 147/72 11/29/16 23:29 Pulse Ox 98 11/29/16 23:29 - Labs Result Diagrams: 11/29/16 12:12 11/29/16 12:12 Assessment & Plan - Assessment and Plan (Free Text) Assessment: HTN ESRD on PD Abdominal pain, vomiting - recent EGD without significant findings to account for clinical presentation. Findings suggestive of viral gastroenteritis. Plan: - Liquid diet as tolerated - Obtain abdominal US given ongoing unexplained abdominal pain with radiation to back - Pain control, suggest avoiding use of narcotic medication - Anti-emetic therapy PRN - If symptoms persist and workup is negative, would consider repeat cross sectional imaging with contrast (prior study was non-contrast) - Will continue to monitor clinical course
[2016-11-30 08:37] LABS: POTASSIUM 4.1 mmol/L (3.6-5.2)
[2016-11-30 08:39] LABS: BILIRUBIN,TOTAL 0.6 mg/dL (0.2-1.3)
[2016-11-30 08:40] LABS: ALB/GLOB RATIO 1.4 (1.0-2.1); TOTAL PROTEIN 6.2 g/dL (6.3-8.3)
--- NOTE | 2016-11-30 09:26 | RAD ---
HISTORY: abd pain COMPARISON: Comparison made with CT the abdomen pelvis 11/26/2016. FINDINGS: BOWEL: No evidence of acute mechanical bowel obstruction. Stool and air seen within the at cecum at ascending transverse, proximal descending column as well as in the rectosigmoid colon. BONES: Normal. OTHER FINDINGS: In situ dialysis catheter overlying left upper pelvis region extending inferiorly with distal aspect coiled in the true pelvis. IMPRESSION: No evidence of acute mechanical bowel obstruction. In situ dialysis catheter.
[2016-11-30] MEDS: Pantoprazole 40 mg EC Tab PO SCH (09:29)
[2016-11-30] MEDS: Labetalol Hydrochloride 300 mg Tab PO SCH ×3 (09:30→17:14)
--- NOTE | 2016-11-30 12:36 | CP.PCM.PN ---
Subjective - Date & Time of Evaluation Date of Evaluation: 11/30/16 Time of Evaluation: 10:20 - Subjective Subjective: clinically same Objective - Vital Signs/Intake and Output Vital Signs (last 24 hours): Temp Pulse Resp BP Pulse Ox 98.3 F 59 L 20 132/73 99 11/30/16 08:21 11/30/16 08:21 11/30/16 08:21 11/30/16 08:21 11/30/16 08:21 Intake and Output: 11/30/16 11/30/16 06:59 18:59 Intake Total 550 Balance 550 - Medications Medications: Current Medications Amlodipine Besylate (Norvasc) 10 mg PO DAILY [facility] Last Admin: 11/30/16 09:29 Dose: 10 mg Aspirin (Ecotrin) 81 mg PO DAILY [facility] Last Admin: 11/30/16 09:29 Dose: 81 mg Calcium Acetate (Phoslo) 667 mg PO TIDCC [facility] Last Admin: 11/30/16 12:08 Dose: Not Given Clonidine HCl (Catapres) 0.1 mg PO BID [facility] Last Admin: 11/30/16 09:29 Dose: 0.1 mg Escitalopram Oxalate (Lexapro) 10 mg PO DAILY [facility] Last Admin: 11/30/16 09:28 Dose: 10 mg Heparin Sodium (Porcine) (Heparin) 5,000 units SC Q12 [facility] Last Admin: 11/30/16 09:29 Dose: 5,000 units Labetalol HCl (Normodyne) 300 mg PO TID [facility] Last Admin: 11/30/16 09:30 Dose: 300 mg Minoxidil (Minoxidil) 5 mg PO BID [facility] Last Admin: 11/30/16 09:29 Dose: 5 mg Morphine Sulfate (Morphine) 4 mg IVP Q4 PRN PRN Reason: pain Last Admin: 11/30/16 08:35 Dose: 4 mg Ondansetron HCl (Zofran Inj) 4 mg IVP Q4 PRN PRN Reason: Nausea/Vomiting Pantoprazole Sodium (Protonix Ec Tab) 40 mg PO DAILY [facility] Last Admin: 11/30/16 09:29 Dose: 40 mg - Labs Labs: 11/30/16 08:13 - Constitutional Appears: Well - Head Exam Head Exam: ATRAUMATIC, NORMAL INSPECTION, NORMOCEPHALIC - Eye Exam Eye Exam: EOMI, Normal appearance, PERRL - ENT Exam ENT Exam: Mucous Membranes Moist, Normal Exam - Neck Exam Neck Exam: Full ROM, Normal Inspection. absent: Lymphadenopathy - Respiratory Exam Respiratory Exam: Decreased Breath Sounds - Cardiovascular Exam Cardiovascular Exam: REGULAR RHYTHM, +S1, +S2. absent: Murmur - GI/Abdominal Exam GI & Abdominal Exam: Soft, Diminished Bowel Sounds - Rectal Exam Rectal Exam: Deferred Assessment and Plan (1) AMPARO (acute kidney injury) Status: Acute (2) Abdominal pain Status: Acute (3) Acute cholecystitis Status: Acute (4) Anemia Status: Acute (5) CHF (congestive heart failure) Status: Acute (6) CKD (chronic kidney disease) stage 5, GFR less than 15 ml/min Status: Acute (7) CKD stage 5 secondary to hypertension Status: Acute (8) Chest pain Status: Acute (9) Dependency on pain medication Status: Acute (10) ESRD (end stage renal disease) Status: Acute (11) ESRD (end stage renal disease) Status: Acute (12) ESRD (end stage renal disease) Status: Acute (13) Elevated lipase Status: Acute (14) End stage renal disease Status: Acute (15) HTN (hypertension) Status: Acute (16) Hypertension Status: Acute (17) Hypertension Status: Acute (18) Hypertensive chronic kidney disease with stage 5 chronic kidney disease or end stage renal disease Status: Acute (19) Hypertensive emergency Status: Acute (20) Hypertensive urgency Status: Acute (21) Hypokalemia Status: Acute (22) Hypokalemia Status: Acute (23) Hypokalemia Status: Acute (24) Hypoxia Status: Acute (25) Intractable abdominal pain Status: Acute (26) NSTEMI (non-ST elevated myocardial infarction) Status: Acute (27) Nausea Status: Acute (28) Nausea & vomiting Status: Acute (29) Nephrolithiasis Status: Acute (30) PUD (peptic ulcer disease) Status: Acute (31) Pneumonia Status: Acute (32) Prophylactic measure Status: Acute (33) Prophylactic measure Status: Acute (34) Proteinuria Status: Acute (35) Renal failure Status: Acute (36) Renal insufficiency Status: Acute (37) Uncontrolled hypertension Status: Acute (38) Vomiting Status: Acute - Assessment and Plan (Free Text) Plan: Continue same Gastro on board Labetalol Catapres Aspirin Norvasc Protonix close monitoring Labs next a.m.
--- NOTE | 2016-11-30 16:18 | US ---
HISTORY: abdominal pain, negative EGD COMPARISON: Comparison made with CT scan abdomen pelvis 11/26/2016 and renal ultrasound 11/08/2016 TECHNIQUE: Sonographic evaluation of the abdomen. FINDINGS: LIVER: Measures approximately 13.6 cm on this exam however the liver measured approximately 18 cm in CC dimension on prior CT scan which is likely more accurate. No obvious hepatic mass collection or calcification. Liver demonstrates increased echotexture suggesting fatty infiltration. No gross hepatic mass or collection. No intrahepatic biliary ductal dilatation. GALLBLADDER: The the gallbladder is physiologically distended. Intraluminal gallbladder calculi present in the gallbladder neck. No evidence of gallbladder wall edema pericholecystic fluid collections or sonographic Hernandez sign. COMMON BILE DUCT: Measures approximately 6.9 mm. Mm. No stones. No dilatation. PANCREAS: The pancreas appears grossly unremarkable. No evidence of pancreatic ductal dilatation. RIGHT KIDNEY: Measures approximately 10.7 x 4.75 x 3.9 cm. . Normal echogenicity. No calculus, mass, or hydronephrosis. LEFT KIDNEY: Measures approximately 10.4 x 5.0 x 5.1cm. Normal echogenicity. No calculus, mass, or hydronephrosis. SPLEEN: Normal in size and contour. No mass. AORTA: No aneurysmal dilatation. IVC: Unremarkable. OTHER FINDINGS: None. IMPRESSION: Cholelithiasis as above. Mild fatty hepatic infiltration. See above discussion for additional details.
[2016-12-01] MEDS: Morphine 4 MG/ML VIAL IVP PRN ×4 (05:30→20:35)
--- NOTE | 2016-12-01 08:47 | CP.PCM.CON ---
History of Present Illness - History of Present Illness History of Present Illness: Gastroenterology Fellow/PGY5 Progress Note Patient states she is having severe left sided flank pain. Tolerated clear liquid diet yesterday. Notes one formed bowel movement two days ago. A 12-point review of systems negative except for as above. Review of Systems - Review of Systems Review of Systems: 12-point review of systems negative except for as above Past Patient History - Past Medical History & Family History Past Medical History?: Yes - Past Social History Smoking Status: Current Some Days Smoker - CARDIAC Hx Congestive Heart Failure: Yes Hx Hypertension: Yes - PULMONARY Hx Respiratory Disorders: No - NEUROLOGICAL Hx Neurological Disorder: No - HEENT Hx HEENT Problems: No Other/Comment: eyeglasses for reading - RENAL Hx Chronic Kidney Disease: Yes Hx Dialysis: Yes Type of Dialysis Access: permacath, peritoneal Date of Last Dialysis Treatment: 11/28/16 Hx Kidney Stones: Yes (8 years ago) - ENDOCRINE/METABOLIC Hx Endocrine Disorders: No - HEMATOLOGICAL/ONCOLOGICAL Hx Anemia: Yes - INTEGUMENTARY Hx Dermatological Problems: No - MUSCULOSKELETAL/RHEUMATOLOGICAL Hx Falls: No - GASTROINTESTINAL Hx Gastrointestinal Disorders: No - GENITOURINARY/GYNECOLOGICAL Hx Genitourinary Disorders: No - PSYCHIATRIC Hx Anxiety: Yes Hx Depression: Yes Hx Substance Use: No - SURGICAL HISTORY Hx Surgeries: Yes Other/Comment: Insertion of peritoneal catheter /tenchoff cath - ANESTHESIA Hx Anesthesia: Yes Hx Anesthesia Reactions: No Hx Malignant Hyperthermia: No Meds Allergies/Adverse Reactions: Allergies Allergy/AdvReac Type Severity Reaction Status Date / Time No Known Allergies Allergy Verified 11/29/16 11:49 - Medications Medications: Current Medications Amlodipine Besylate (Norvasc) 10 mg PO DAILY REPLACED BY [facility] Last Admin: 11/30/16 09:29 Dose: 10 mg Aspirin (Ecotrin) 81 mg PO DAILY REPLACED BY [facility] Last Admin: 11/30/16 09:29 Dose: 81 mg Calcium Acetate (Phoslo) 667 mg PO TIDCC REPLACED BY [facility] Last Admin: 12/01/16 08:23 Dose: 667 mg Clonidine HCl (Catapres) 0.1 mg PO BID REPLACED BY [facility] Last Admin: 11/30/16 17:13 Dose: 0.1 mg Escitalopram Oxalate (Lexapro) 10 mg PO DAILY REPLACED BY [facility] Last Admin: 11/30/16 09:28 Dose: 10 mg Heparin Sodium (Porcine) (Heparin) 5,000 units SC Q12 REPLACED BY [facility] Last Admin: 11/30/16 21:22 Dose: 5,000 units Labetalol HCl (Normodyne) 300 mg PO TID REPLACED BY [facility] Last Admin: 11/30/16 17:14 Dose: 300 mg Minoxidil (Minoxidil) 5 mg PO BID REPLACED BY [facility] Last Admin: 11/30/16 17:14 Dose: 5 mg Morphine Sulfate (Morphine) 4 mg IVP Q4H PRN PRN Reason: Pain, severe (8-10) Last Admin: 12/01/16 05:30 Dose: 4 mg Ondansetron HCl (Zofran Inj) 4 mg IVP Q4 PRN PRN Reason: Nausea/Vomiting Pantoprazole Sodium (Protonix Ec Tab) 40 mg PO DAILY REPLACED BY [facility] Last Admin: 11/30/16 09:29 Dose: 40 mg Pneumococcal Polyvalent Vaccine (Pneumovax 23 Vaccine) 0.5 ml IM .ONCE ONE Stop: 12/02/16 10:01 Physical Exam - Constitutional Appears: Non-toxic, No Acute Distress - Head Exam Head Exam: ATRAUMATIC, NORMOCEPHALIC - Eye Exam Eye Exam: EOMI, PERRL Pupil Exam: PERRL. absent: Miosis, Mydriatic - ENT Exam ENT Exam: Mucous Membranes Moist, Normal Oropharynx - Neck Exam Neck exam: Positive for: Full Rom, Normal Inspection - Respiratory Exam Respiratory Exam: Clear to Auscultation Bilateral. absent: Rales, Rhonchi, Wheezes - Cardiovascular Exam Cardiovascular Exam: RRR, +S1, +S2. absent: Gallop, Rubs - GI/Abdominal Exam GI & Abdominal Exam: Normal Bowel Sounds, Soft, Tenderness. absent: Distended, Firm, Guarding, Organomegaly, Rebound Additional comments: LUQ/flank tenderness to palpation - Extremities Exam Extremities exam: Positive for: full ROM. Negative for: pedal edema - Back Exam Back exam: CVA tenderness (L) - Neurological Exam Neurological exam: Alert - Psychiatric Exam Psychiatric exam: Normal Affect, Normal Mood - Skin Skin Exam: Dry, Intact, Normal Color, Warm Results - Vital Signs Recent Vital Signs: Last Vital Signs Temp 98.5 F 11/30/16 23:28 Pulse 61 11/30/16 23:28 Resp 20 11/30/16 23:28 BP 110/61 11/30/16 23:28 Pulse Ox 95 11/30/16 23:28 - Labs Result Diagrams: 11/29/16 12:12 11/30/16 08:13 Labs: Laboratory Results - last 24 hr 11/30/16 08:13 Sodium 140 Potassium 4.1 Chloride 97 L Carbon Dioxide 28 Anion Gap 19 BUN 15 Creatinine 5.0 H Est GFR ( Amer) 12 Est GFR (Non-Af Amer) 10 Random Glucose 100 Calcium 9.0 Total Bilirubin 0.6 AST 29 ALT 25 Alkaline Phosphatase 76 Total Protein 6.2 L Albumin 3.6 Globulin 2.6 Albumin/Globulin Ratio 1.4 Assessment & Plan - Assessment and Plan (Free Text) Assessment: 36 year old female with history of Hypertension, medication noncompliance, NSTEMI and new onset ESRD on PD with temporary HD on discharge 11/19/16 presenting with epigastric pain. Recent discharge, 11/27/16, for similar symptoms with CT A/P without contrast showing no acute pathology and non- obstructive left kidney stone. EGD 11/27/16 showed chronic Gastritis, H. pylori negative, and no acute pathology. No prior colonoscopy.
--- NOTE | 2016-12-01 08:59 | CP.PCM.PN ---
<Hannah Grady - Last Filed: 12/01/16 10:00> Subjective - Date & Time of Evaluation Date of Evaluation: 12/01/16 Time of Evaluation: 08:56 - Subjective Subjective: Gastroenterology Fellow/PGY5 Progress Note Patient states she is having severe left sided flank pain. Tolerated clear liquid diet yesterday. Notes one formed bowel movement two days ago. A 12-point review of systems negative except for as above. Objective - Vital Signs/Intake and Output Vital Signs (last 24 hours): Temp Pulse Resp BP Pulse Ox 98.5 F 61 20 110/61 95 11/30/16 23:28 11/30/16 23:28 11/30/16 23:28 11/30/16 23:28 11/30/16 23:28 Intake and Output: 12/01/16 12/01/16 06:59 18:59 Intake Total 600 Balance 600 - Medications Medications: Current Medications Amlodipine Besylate (Norvasc) 10 mg PO DAILY [facility] Last Admin: 11/30/16 09:29 Dose: 10 mg Aspirin (Ecotrin) 81 mg PO DAILY [facility] Last Admin: 11/30/16 09:29 Dose: 81 mg Calcium Acetate (Phoslo) 667 mg PO TIDCC [facility] Last Admin: 12/01/16 08:23 Dose: 667 mg Clonidine HCl (Catapres) 0.1 mg PO BID [facility] Last Admin: 11/30/16 17:13 Dose: 0.1 mg Escitalopram Oxalate (Lexapro) 10 mg PO DAILY [facility] Last Admin: 11/30/16 09:28 Dose: 10 mg Heparin Sodium (Porcine) (Heparin) 5,000 units SC Q12 [facility] Last Admin: 11/30/16 21:22 Dose: 5,000 units Labetalol HCl (Normodyne) 300 mg PO TID [facility] Last Admin: 11/30/16 17:14 Dose: 300 mg Minoxidil (Minoxidil) 5 mg PO BID [facility] Last Admin: 11/30/16 17:14 Dose: 5 mg Morphine Sulfate (Morphine) 4 mg IVP Q4H PRN PRN Reason: Pain, severe (8-10) Last Admin: 12/01/16 05:30 Dose: 4 mg Ondansetron HCl (Zofran Inj) 4 mg IVP Q4 PRN PRN Reason: Nausea/Vomiting Pantoprazole Sodium (Protonix Ec Tab) 40 mg PO DAILY [facility] Last Admin: 11/30/16 09:29 Dose: 40 mg Pneumococcal Polyvalent Vaccine (Pneumovax 23 Vaccine) 0.5 ml IM .ONCE ONE Stop: 12/02/16 10:01 - Labs Labs: 11/30/16 08:13 - Constitutional Appears: Non-toxic, No Acute Distress - Head Exam Head Exam: ATRAUMATIC, NORMOCEPHALIC - Eye Exam Eye Exam: EOMI, PERRL Pupil Exam: PERRL. absent: Miosis, Mydriatic - ENT Exam ENT Exam: Mucous Membranes Moist, Normal Oropharynx - Neck Exam Neck Exam: Full ROM, Normal Inspection - Respiratory Exam Respiratory Exam: Clear to Ausculation Bilateral. absent: Rales, Rhonchi, Wheezes - Cardiovascular Exam Cardiovascular Exam: RRR, +S1, +S2. absent: Gallop, Rubs - GI/Abdominal Exam GI & Abdominal Exam: Soft, Tenderness, Normal Bowel Sounds. absent: Distended, Firm, Guarding, Rigid, Organomegaly, Rebound Additional comments: LUQ to left flank tenderness to palpation - Extremities Exam Extremities Exam: Normal Inspection. absent: Pedal Edema - Neurological Exam Neurological Exam: Alert, Awake - Psychiatric Exam Psychiatric exam: Normal Affect, Normal Mood - Skin Skin Exam: Dry, Intact, Normal Color, Warm Assessment and Plan - Assessment and Plan (Free Text) Assessment: 36 year old female with history of Hypertension, medication noncompliance, NSTEMI and new onset ESRD on PD with temporary HD on discharge 11/19/16 presenting with epigastric pain. Recent discharge, 11/27/16, for similar symptoms with CT A/P without contrast showing no acute pathology and non- obstructive left kidney stone. EGD 11/27/16 showed chronic Gastritis, H. pylori negative, and no acute pathology. No prior colonoscopy. Plan: >CT A/P IV contrast ordered to evaluate abdominal pain >prior scan with left kidney stone, non-obstructive >recent EGD - no acute pathology >CT to be performed prior to dialysis today >supportive care: pain control, anti-emetics, PPI >clear liquid diet, advance as tolerated >follow up repeat CT imaging >recommend psychiatry and pain management evaluation >will follow clinical course <Shantanu Bradley MD - Last Filed: 12/01/16 10:37> Objective - Vital Signs/Intake and Output Vital Signs (last 24 hours): Temp Pulse Resp BP Pulse Ox 98.2 F 83 20 124/76 92 L 12/01/16 08:59 12/01/16 08:59 12/01/16 08:59 12/01/16 08:59 12/01/16 08:59 Intake and Output: 12/01/16 12/01/16 06:59 18:59 Intake Total 600 Balance 600 - Medications Medications: Current Medications Amlodipine Besylate (Norvasc) 10 mg PO DAILY [facility] Last Admin: 11/30/16 09:29 Dose: 10 mg Aspirin (Ecotrin) 81 mg PO DAILY [facility] Last Admin: 12/01/16 09:40 Dose: 81 mg Calcium Acetate (Phoslo) 667 mg PO TIDCC [facility] Last Admin: 12/01/16 08:23 Dose: 667 mg Clonidine HCl (Catapres) 0.1 mg PO BID [facility] Last Admin: 11/30/16 17:13 Dose: 0.1 mg Escitalopram Oxalate (Lexapro) 10 mg PO DAILY [facility] Last Admin: 12/01/16 09:39 Dose: 10 mg Heparin Sodium (Porcine) (Heparin) 5,000 units SC Q12 [facility] Last Admin: 11/30/16 21:22 Dose: 5,000 units Labetalol HCl (Normodyne) 300 mg PO TID [facility] Last Admin: 11/30/16 17:14 Dose: 300 mg Minoxidil (Minoxidil) 5 mg PO BID [facility] Last Admin: 11/30/16 17:14 Dose: 5 mg Morphine Sulfate (Morphine) 4 mg IVP Q4H PRN PRN Reason: Pain, severe (8-10) Last Admin: 12/01/16 09:35 Dose: 4 mg Ondansetron HCl (Zofran Inj) 4 mg IVP Q4 PRN PRN Reason: Nausea/Vomiting Pantoprazole Sodium (Protonix Ec Tab) 40 mg PO DAILY [facility] Last Admin: 12/01/16 09:39 Dose: 40 mg Pneumococcal Polyvalent Vaccine (Pneumovax 23 Vaccine) 0.5 ml IM .ONCE ONE Stop: 12/02/16 10:01 - Labs Labs: 11/30/16 08:13 Attending/Attestation - Attestation I have personally seen and examined this patient.: Yes I have fully participated in the care of the patient.: Yes I have reviewed all pertinent clinical information, including history, physical exam and plan: Yes Notes (Text): 12/01/16 10:34 Patient seen and examined with GI fellows on rounds this am. This is a 36 year old female with history of Hypertension, medication noncompliance, NSTEMI and new onset ESRD on PD with temporary HD on discharge 11/19/16 presenting with epigastric pain after being discharged on 11/27. s/p EGD showing chronic gastritis , H pylori negative. CT non contrast shows renal pole calculus on left side. Pending Ct with contrast to rule out kidney pathology as pain is mostly left flank. Pain seeking behavior asking for pain medications q 2-3 hours. Will benefit from pain management consult. Clear liquid diet. Will follow
[2016-12-01] MEDS: Pantoprazole 40 mg EC Tab PO SCH (09:39)
[2016-12-01] MEDS: Labetalol Hydrochloride 300 mg Tab PO SCH ×3 (10:30→20:33)
--- NOTE | 2016-12-01 11:15 | CP.PCM.CON ---
History of Present Illness - History of Present Illness History of Present Illness: Presents with left sided abdominal pains and vomiting. Told by family patient abusing illicit drugs. Last dialysis 11/28. 36 year old female with history of HTN, ESRD on PD, who presents to hospital with complaint of abdominal pain and vomiting. She was recently discharged from hospital 48 hours ago after being evaluated for similar complaints. After going home, she felt well and woke up the next day with sharp 8/10 intensity epigastric abdominal pain which was radiating to back. This was associated with multiple episodes of non-bloody emesis. She denies fever/chills, weight loss, sick contacts, or change in bowel habits. During recent hospitalization, she was worked up with EGD which showed mild gastritis (biopsies negative for HP) and CT imaging which did not show acute pathology. Since arrival to hospital she has not had any recurrent emesis, though she continues to endorse abdominal pain. She is tolerating PO liquids without difficulty. Social history: smokes intermittent cigarettes, social ETOH use, + illicit drug use Family history: Reviewed, mother with CKD. PMH: ESRD HTN +ILLICIT DRUG USE PSH: PD CATHETER INSERTION Review of Systems - Constitutional Constitutional: Excessive Sweating, Fatigue, Weakness - EENT Eyes: absent: As Per HPI, Blind Spots, Blurred Vision, Change in Vision, Decreased Night Vision, Diplopia, Discharge, Dry Eye, Exophthalmos, Floaters, Irritation, Itchy Eyes, Loss of Peripheral Vision, Pain, Photophobia, Requires Corrective Lenses, Sees Flashes, Spots in Vision, Tunnel Vision, Other Visual Disturbances, Loss of Vision, Other Ears: absent: As Per HPI, Decreased Hearing, Ear Discharge, Ear Pain, Tinnitus, Abnormal Hearing, Disequilibrium, Dizziness, Other - Cardiovascular Cardiovascular: Dyspnea on Exertion - Respiratory Respiratory: absent: As Per HPI, Cough, Dyspnea, Hemoptysis, Dyspnea on Exertion , Wheezing, Snoring, Stridor, Pain on Inspiration, Chest Congestion, Excessive Mucous Production, Change in Mucous Color, Pain with Coughing, Other - Gastrointestinal Gastrointestinal: Abdominal Pain, Nausea, Vomiting - Genitourinary Genitourinary: As Per HPI - Musculoskeletal Musculoskeletal: Myalgias, Stiffness - Integumentary Integumentary: absent: As Per HPI, Acne, Alopecia, Bleeding Lesions, Change in Hair, Change in Nails, Change in Pigmentation, Changing Lesions, Dry Skin, Erythema, Furuncle, Hirsutism, Lesions, New Lesions, Non-Healing Lesions, Photosensitivity, Pruritus, Rash, Skin Pain, Skin Ulcer, Sores, Striae, Swelling , Unusual Bruising, Wounds, Jaundice, Other - Neurological Neurological: Weakness Past Patient History - Past Medical History & Family History Past Medical History?: Yes Pertinent Family History: mother- CKD - Past Social History Smoking Status: Current Some Days Smoker Chewing Tobacco Use: No Cigar Use: No Alcohol: Occasional Drugs: Prescription medications Home Situation {Lives}: With Family - CARDIAC Hx Congestive Heart Failure: Yes Hx Hypertension: Yes - PULMONARY Hx Respiratory Disorders: No - NEUROLOGICAL Hx Neurological Disorder: No - HEENT Hx HEENT Problems: No Other/Comment: eyeglasses for reading - RENAL Hx Chronic Kidney Disease: Yes Hx Dialysis: Yes Type of Dialysis Access: permacath, peritoneal Date of Last Dialysis Treatment: 11/28/16 Hx Kidney Stones: Yes (8 years ago) - ENDOCRINE/METABOLIC Hx Endocrine Disorders: No - HEMATOLOGICAL/ONCOLOGICAL Hx Anemia: Yes - INTEGUMENTARY Hx Dermatological Problems: No - MUSCULOSKELETAL/RHEUMATOLOGICAL Hx Falls: No - GASTROINTESTINAL Hx Gastrointestinal Disorders: No - GENITOURINARY/GYNECOLOGICAL Hx Genitourinary Disorders: No - PSYCHIATRIC Hx Anxiety: Yes Hx Depression: Yes Hx Substance Use: No - SURGICAL HISTORY Hx Surgeries: Yes Other/Comment: Insertion of peritoneal catheter /tenchoff cath - ANESTHESIA Hx Anesthesia: Yes Hx Anesthesia Reactions: No Hx Malignant Hyperthermia: No Meds Allergies/Adverse Reactions: Allergies Allergy/AdvReac Type Severity Reaction Status Date / Time No Known Allergies Allergy Verified 11/29/16 11:49 - Medications Medications: Current Medications Amlodipine Besylate (Norvasc) 10 mg PO DAILY [facility] Last Admin: 11/30/16 09:29 Dose: 10 mg Aspirin (Ecotrin) 81 mg PO DAILY [facility] Last Admin: 12/01/16 09:40 Dose: 81 mg Calcium Acetate (Phoslo) 667 mg PO TIDCC [facility] Last Admin: 12/01/16 08:23 Dose: 667 mg Clonidine HCl (Catapres) 0.1 mg PO BID [facility] Last Admin: 11/30/16 17:13 Dose: 0.1 mg Escitalopram Oxalate (Lexapro) 10 mg PO DAILY [facility] Last Admin: 12/01/16 09:39 Dose: 10 mg Heparin Sodium (Porcine) (Heparin) 5,000 units SC Q12 [facility] Last Admin: 11/30/16 21:22 Dose: 5,000 units Labetalol HCl (Normodyne) 300 mg PO TID [facility] Last Admin: 11/30/16 17:14 Dose: 300 mg Minoxidil (Minoxidil) 5 mg PO BID [facility] Last Admin: 11/30/16 17:14 Dose: 5 mg Morphine Sulfate (Morphine) 4 mg IVP Q4H PRN PRN Reason: Pain, severe (8-10) Last Admin: 12/01/16 09:35 Dose: 4 mg Ondansetron HCl (Zofran Inj) 4 mg IVP Q4 PRN PRN Reason: Nausea/Vomiting Pantoprazole Sodium (Protonix Ec Tab) 40 mg PO DAILY [facility] Last Admin: 12/01/16 09:39 Dose: 40 mg Pneumococcal Polyvalent Vaccine (Pneumovax 23 Vaccine) 0.5 ml IM .ONCE ONE Stop: 12/02/16 10:01 Physical Exam - Constitutional Appears: No Acute Distress, Chronically Ill - Head Exam Head Exam: ATRAUMATIC, NORMAL INSPECTION - Eye Exam Eye Exam: EOMI, Normal appearance - Neck Exam Neck exam: Positive for: Normal Inspection. Negative for: Tenderness - Respiratory Exam Respiratory Exam: Clear to Auscultation Bilateral, NORMAL BREATHING PATTERN - Cardiovascular Exam Cardiovascular Exam: REGULAR RHYTHM, +S1 - GI/Abdominal Exam GI & Abdominal Exam: Soft, Tenderness - Extremities Exam Extremities exam: Positive for: normal inspection. Negative for: tenderness - Neurological Exam Neurological exam: Alert, CN II-XII Intact - Skin Skin Exam: Dry, Warm Results - Vital Signs Recent Vital Signs: Last Vital Signs Temp 98.2 F 12/01/16 08:59 Pulse 83 12/01/16 08:59 Resp 20 12/01/16 08:59 BP 124/76 12/01/16 08:59 Pulse Ox 92 L 12/01/16 08:59 - Labs Result Diagrams: 11/29/16 12:12 11/30/16 08:13 Assessment & Plan (1) PUD (peptic ulcer disease) Status: Acute (2) Dependency on pain medication Status: Acute - Assessment and Plan (Free Text) Plan: Would avoid narcotics Would switch to tramadol or NSAIDs Dialysis today and MWF
[2016-12-01] MEDS ORDERED: Iodixanol 320 MG/ML 100 ML BOTTLE IV ONE (14:01)
--- NOTE | 2016-12-01 14:44 | CP.PCM.PN ---
Subjective - Date & Time of Evaluation Date of Evaluation: 12/01/16 Time of Evaluation: 14:41 - Subjective Subjective: PGY [address] Orr 36 year old female with past medical history of CAD, gastritis, HTN, CKD on HD MWF is admitted to hospital for intractable abdominal pain, N/V. Patient is seen and examined at bedside. No acute events overnight. patient continues to c/o abd pain diffusely. Patient denies having any N/V/d/c, F/C, CP, SOB. 12 point ROS are negative expect for the above mentioned. Objective - Vital Signs/Intake and Output Vital Signs (last 24 hours): Temp Pulse Resp BP Pulse Ox 98.2 F 83 20 124/76 92 L 12/01/16 08:59 12/01/16 08:59 12/01/16 08:59 12/01/16 08:59 12/01/16 08:59 Intake and Output: 12/01/16 12/01/16 06:59 18:59 Intake Total 600 Balance 600 - Medications Medications: Current Medications Amlodipine Besylate (Norvasc) 10 mg PO DAILY [facility] Last Admin: 12/01/16 12:18 Dose: Not Given Aspirin (Ecotrin) 81 mg PO DAILY [facility] Last Admin: 12/01/16 09:40 Dose: 81 mg Calcium Acetate (Phoslo) 667 mg PO TIDCC [facility] Last Admin: 12/01/16 12:18 Dose: 667 mg Clonidine HCl (Catapres) 0.1 mg PO BID [facility] Last Admin: 12/01/16 10:30 Dose: Not Given Escitalopram Oxalate (Lexapro) 10 mg PO DAILY [facility] Last Admin: 12/01/16 09:39 Dose: 10 mg Heparin Sodium (Porcine) (Heparin) 5,000 units SC Q12 [facility] Last Admin: 12/01/16 10:30 Dose: 5,000 units Moxifloxacin HCl (Avelox Iv 400mg/250ml Ns) 400 mg in 250 mls @ 167 mls/hr IVPB Q24H [facility] Labetalol HCl (Normodyne) 300 mg PO TID [facility] Last Admin: 12/01/16 14:08 Dose: Not Given Minoxidil (Minoxidil) 5 mg PO BID [facility] Last Admin: 12/01/16 10:30 Dose: Not Given Morphine Sulfate (Morphine) 4 mg IVP Q4H PRN PRN Reason: Pain, severe (8-10) Last Admin: 12/01/16 14:07 Dose: 4 mg Ondansetron HCl (Zofran Inj) 4 mg IVP Q4 PRN PRN Reason: Nausea/Vomiting Pantoprazole Sodium (Protonix Ec Tab) 40 mg PO DAILY [facility] Last Admin: 12/01/16 09:39 Dose: 40 mg Pneumococcal Polyvalent Vaccine (Pneumovax 23 Vaccine) 0.5 ml IM .ONCE ONE Stop: 12/02/16 10:01 - Labs Labs: 11/30/16 08:13 - Constitutional Appears: Non-toxic, No Acute Distress - Head Exam Head Exam: ATRAUMATIC - Eye Exam Eye Exam: EOMI - ENT Exam ENT Exam: Mucous Membranes Moist - Respiratory Exam Respiratory Exam: Clear to Ausculation Bilateral. absent: Accessory Muscle Use , Rales, Rhonchi, Wheezes, Respiratory Distress - Cardiovascular Exam Cardiovascular Exam: REGULAR RHYTHM, +S1, +S2. absent: Gallop, Rubs, Murmur - GI/Abdominal Exam GI & Abdominal Exam: Soft, Normal Bowel Sounds. absent: Firm, Guarding, Rigid, Tenderness, Organomegaly - Extremities Exam Extremities Exam: absent: Pedal Edema, Tenderness - Neurological Exam Neurological Exam: Alert, Awake, Oriented x3 - Psychiatric Exam Psychiatric exam: Normal Affect, Normal Mood - Skin Skin Exam: Dry, Intact, Normal Color, Warm Assessment and Plan - Assessment and Plan (Free Text) Assessment: 36 year old female with past medical history of CAd, HTN, gastritis, CKd on HD MWF is admitted for intractable abd pain abdominal pain - Afebrile and normal WBC count - GI, Dr. Cruz is consulted - Abd x ray shoed no obstruction - Abd US done on 11/30 showed cholelithiasis with no pericholecystic fluid or CBD dilation - On last admission, CT abd/pelvis showed partial mural thickening of transverse colon consider intrinsic segmental colitis or possibly collapse bowel ; peritoneal dialysis catheter noted, nonobstructive intrarenal calculuc in Left kidney - Patient also underwent EGD procedure on last admission with dr. Cruz. Results showed normal esophagus, 1 cm hialtal hernia, gastritis. Biopsy showed mild chronic inflammation, negative for H pylori - GI recommend repeat abd CT scan. - Continue Protonix 40 mg po qd HTN - Continue home medication Norvasc and clonidine - Labetalol 300 mg po TOD CKD on HD MWF - Nephrology, Dr. Jordan is consulted - Patient will undergo dialysis today Prophylaxis - heparin sc - protonix Orders and management per Dr. Orr
[2016-12-01] MEDS: Moxifloxacin IV 400mg/250ml NS 400 MG/250 ML BAG IVPB SCH (15:16)
--- NOTE | 2016-12-01 16:02 | CT ---
PROCEDURE: CT Abdomen and Pelvis with contrast HISTORY: severe abdominal pain COMPARISON: CT of the abdomen and pelvis without oral or IV contrast performed 11/26/16, abdominal ultrasound performed 11/30/16 TECHNIQUE: Contrast dose: 100 mL Visipaque Radiation dose: Total exam DLP = 1003.04 mGy-cm. This CT exam was performed using one or more of the following dose reduction techniques: Automated exposure control, adjustment of the mA and/or kV according to patient size, and/or use of iterative reconstruction technique. FINDINGS: LOWER THORAX: Trace bilateral pleural effusions and associated compressive consolidations. No visible pneumothorax. Small hiatal hernia/distal esophageal wall thickening. LIVER: Unremarkable. GALLBLADDER AND BILE DUCTS: Distended gallbladder. Mild gallbladder wall thickening versus trace pericholecystic edema. No calcified gallstones appreciated. Common bile duct measures approximately 7 mm, mildly dilated. PANCREAS: Unremarkable. SPLEEN: Unremarkable. ADRENALS: Unremarkable. KIDNEYS AND URETERS: The kidneys enhance symmetrically. No hydronephrosis or obstructing calculus identified. Tiny left renal calcifications, nonobstructive. VASCULATURE: No aortic aneurysm. BOWEL: Stomach is nondistended. Lack of oral contrast limits evaluation for bowel pathology. Bowel loops appear within normal limits of caliber without evidence of obstruction. APPENDIX: The appendix appears within normal limits of caliber. No secondary signs of acute appendicitis. PERITONEUM: Peritoneal dialysis catheter versus surgical drain. Small pelvic free fluid. No definite free air. LYMPH NODES: No bulky adenopathy identified. BLADDER: Under distended urinary bladder limits evaluation. Thick-walled urinary bladder likely exaggerated by under distension. REPRODUCTIVE: Uterus is present with evidence of probable fibroid. Bilateral adnexal cystic structure/fluid collections which appears somewhat tubular raise suspicion for hydrosalpinx. BONES: No acute osseous abnormality is detected. OTHER FINDINGS: None. IMPRESSION: Distended gallbladder. Mild gallbladder wall thickening versus trace pericholecystic edema. No calcified gallstones appreciated. Common bile duct measures approximately 7 mm, mildly dilated. Correlate clinically for possibility of cholecystitis. Uterus is present with evidence of probable fibroid. Bilateral adnexal cystic structure/fluid collections which appears somewhat tubular raise suspicion for hydrosalpinx. Recommend further evaluation with pelvic ultrasound. Mildly thick-walled urinary bladder may be exaggerated by under distension. Recommend correlation with urinalysis. Trace bilateral pleural effusions and associated compressive consolidations. No visible pneumothorax. Small hiatal hernia/distal esophageal wall thickening. Probable peritoneal dialysis catheter versus surgical drain. Small pelvic free fluid. Additional findings as above.
--- NOTE | 2016-12-01 17:29 | CP.PCM.PN ---
Subjective - Date & Time of Evaluation Date of Evaluation: 12/01/16 Time of Evaluation: 09:40 - Subjective Subjective: clinically same Objective - Vital Signs/Intake and Output Vital Signs (last 24 hours): Temp Pulse Resp BP Pulse Ox 98.9 F 81 20 145/87 89 L 12/01/16 16:00 12/01/16 16:00 12/01/16 16:00 12/01/16 16:00 12/01/16 16:00 Intake and Output: 12/01/16 12/01/16 06:59 18:59 Intake Total 600 400 Balance 600 400 - Medications Medications: Current Medications Amlodipine Besylate (Norvasc) 10 mg PO DAILY [facility] Last Admin: 12/01/16 12:18 Dose: Not Given Aspirin (Ecotrin) 81 mg PO DAILY [facility] Last Admin: 12/01/16 09:40 Dose: 81 mg Calcium Acetate (Phoslo) 667 mg PO TIDCC [facility] Last Admin: 12/01/16 12:18 Dose: 667 mg Clonidine HCl (Catapres) 0.1 mg PO BID [facility] Last Admin: 12/01/16 10:30 Dose: Not Given Escitalopram Oxalate (Lexapro) 10 mg PO DAILY [facility] Last Admin: 12/01/16 09:39 Dose: 10 mg Heparin Sodium (Porcine) (Heparin) 5,000 units SC Q12 [facility] Last Admin: 12/01/16 10:30 Dose: 5,000 units Moxifloxacin HCl (Avelox Iv 400mg/250ml Ns) 400 mg in 250 mls @ 167 mls/hr IVPB Q24H [facility] Last Admin: 12/01/16 15:16 Dose: 167 mls/hr Labetalol HCl (Normodyne) 300 mg PO TID [facility] Last Admin: 12/01/16 14:08 Dose: Not Given Minoxidil (Minoxidil) 5 mg PO BID [facility] Last Admin: 12/01/16 10:30 Dose: Not Given Morphine Sulfate (Morphine) 4 mg IVP Q4H PRN PRN Reason: Pain, severe (8-10) Last Admin: 12/01/16 14:07 Dose: 4 mg Ondansetron HCl (Zofran Inj) 4 mg IVP Q4 PRN PRN Reason: Nausea/Vomiting Pantoprazole Sodium (Protonix Ec Tab) 40 mg PO DAILY [facility] Last Admin: 12/01/16 09:39 Dose: 40 mg Pneumococcal Polyvalent Vaccine (Pneumovax 23 Vaccine) 0.5 ml IM .ONCE ONE Stop: 12/02/16 10:01 - Labs Labs: 11/30/16 08:13 - Constitutional Appears: Well - Head Exam Head Exam: ATRAUMATIC, NORMAL INSPECTION, NORMOCEPHALIC - Eye Exam Eye Exam: EOMI, Normal appearance, PERRL - ENT Exam ENT Exam: Mucous Membranes Moist, Normal Exam - Neck Exam Neck Exam: Full ROM, Normal Inspection. absent: Lymphadenopathy - Respiratory Exam Respiratory Exam: Decreased Breath Sounds - Cardiovascular Exam Cardiovascular Exam: REGULAR RHYTHM, +S1, +S2. absent: Murmur - GI/Abdominal Exam GI & Abdominal Exam: Diminished Bowel Sounds - Rectal Exam Rectal Exam: Deferred Assessment and Plan (1) AMPARO (acute kidney injury) Status: Acute (2) Abdominal pain Status: Acute (3) Acute cholecystitis Status: Acute (4) Anemia Status: Acute (5) CHF (congestive heart failure) Status: Acute (6) CKD (chronic kidney disease) stage 5, GFR less than 15 ml/min Status: Acute (7) CKD stage 5 secondary to hypertension Status: Acute (8) Chest pain Status: Acute (9) Dependency on pain medication Status: Acute (10) ESRD (end stage renal disease) Status: Acute (11) ESRD (end stage renal disease) Status: Acute (12) ESRD (end stage renal disease) Status: Acute (13) Elevated lipase Status: Acute (14) End stage renal disease Status: Acute (15) HTN (hypertension) Status: Acute (16) Hypertension Status: Acute (17) Hypertension Status: Acute (18) Hypertensive chronic kidney disease with stage 5 chronic kidney disease or end stage renal disease Status: Acute (19) Hypertensive emergency Status: Acute (20) Hypertensive urgency Status: Acute (21) Hypokalemia Status: Acute (22) Hypokalemia Status: Acute (23) Hypokalemia Status: Acute (24) Hypoxia Status: Acute (25) Intractable abdominal pain Status: Acute (26) NSTEMI (non-ST elevated myocardial infarction) Status: Acute (27) Nausea Status: Acute (28) Nausea & vomiting Status: Acute (29) Nephrolithiasis Status: Acute (30) PUD (peptic ulcer disease) Status: Acute (31) Pneumonia Status: Acute (32) Prophylactic measure Status: Acute (33) Prophylactic measure Status: Acute (34) Proteinuria Status: Acute (35) Renal failure Status: Acute (36) Renal insufficiency Status: Acute (37) Uncontrolled hypertension Status: Acute (38) Vomiting Status: Acute - Assessment and Plan (Free Text) Plan: Patient afebrile On hemodialysis GI on board Protonix Dr. dyer Heparin Norvasc Labetalol Avelox Continue as ordered Labs next a.m.
[2016-12-02] MEDS: Morphine 4 MG/ML VIAL IVP PRN ×5 (01:03→20:45)
--- NOTE | 2016-12-02 07:31 | CP.PCM.PN ---
<Hannah Grady - Last Filed: 12/02/16 08:38> Subjective - Date & Time of Evaluation Date of Evaluation: 12/02/16 Time of Evaluation: 07:28 - Subjective Subjective: Gastroenterology Fellow/PGY5 Progress Note Patient notes mild improvement in left sided flank pain with note of persistent mild epigastric discomfort. Tolerated clear liquid diet.No bowel movement for last two days that she associates with minimal oral intake. A 12-point review of systems negative except for as above. Objective - Vital Signs/Intake and Output Vital Signs (last 24 hours): Temp Pulse Resp BP Pulse Ox 99 F 74 20 122/73 99 12/02/16 00:23 12/02/16 00:23 12/02/16 00:23 12/02/16 00:23 12/02/16 00:23 Intake and Output: 12/02/16 12/02/16 06:59 18:59 Intake Total 300 Balance 300 - Medications Medications: Current Medications Amlodipine Besylate (Norvasc) 10 mg PO DAILY [facility] Last Admin: 12/01/16 12:18 Dose: Not Given Aspirin (Ecotrin) 81 mg PO DAILY [facility] Last Admin: 12/01/16 09:40 Dose: 81 mg Calcium Acetate (Phoslo) 667 mg PO TIDCC [facility] Last Admin: 12/01/16 20:33 Dose: 667 mg Clonidine HCl (Catapres) 0.1 mg PO BID [facility] Last Admin: 12/01/16 20:33 Dose: 0.1 mg Escitalopram Oxalate (Lexapro) 10 mg PO DAILY [facility] Last Admin: 12/01/16 09:39 Dose: 10 mg Heparin Sodium (Porcine) (Heparin) 5,000 units SC Q12 [facility] Last Admin: 12/01/16 21:13 Dose: 5,000 units Moxifloxacin HCl (Avelox Iv 400mg/250ml Ns) 400 mg in 250 mls @ 167 mls/hr IVPB Q24H [facility] Last Admin: 12/01/16 15:16 Dose: 167 mls/hr Labetalol HCl (Normodyne) 300 mg PO TID [facility] Last Admin: 12/01/16 20:33 Dose: 300 mg Minoxidil (Minoxidil) 5 mg PO BID [facility] Last Admin: 12/01/16 20:33 Dose: 5 mg Morphine Sulfate (Morphine) 4 mg IVP Q4H PRN PRN Reason: Pain, severe (8-10) Last Admin: 12/02/16 05:16 Dose: 4 mg Ondansetron HCl (Zofran Inj) 4 mg IVP Q4 PRN PRN Reason: Nausea/Vomiting Pantoprazole Sodium (Protonix Ec Tab) 40 mg PO DAILY [facility] Last Admin: 12/01/16 09:39 Dose: 40 mg Pneumococcal Polyvalent Vaccine (Pneumovax 23 Vaccine) 0.5 ml IM .ONCE ONE Stop: 12/02/16 10:01 - Labs Labs: 11/30/16 08:13 - Constitutional Appears: Non-toxic, No Acute Distress - Head Exam Head Exam: ATRAUMATIC, NORMOCEPHALIC - Eye Exam Eye Exam: EOMI, PERRL Pupil Exam: PERRL. absent: Miosis, Mydriatic - ENT Exam ENT Exam: Mucous Membranes Moist, Normal Oropharynx - Neck Exam Neck Exam: Full ROM, Normal Inspection - Respiratory Exam Respiratory Exam: Clear to Ausculation Bilateral. absent: Rales, Rhonchi, Wheezes - Cardiovascular Exam Cardiovascular Exam: RRR, +S1, +S2. absent: Gallop, Rubs - GI/Abdominal Exam GI & Abdominal Exam: Soft, Tenderness, Normal Bowel Sounds. absent: Distended, Firm, Guarding, Rigid, Organomegaly, Rebound Additional comments: epigastric, LUQ, flank tenderness to palpation - Extremities Exam Extremities Exam: Full ROM. absent: Pedal Edema - Neurological Exam Neurological Exam: Alert, Awake - Psychiatric Exam Psychiatric exam: Normal Affect, Normal Mood - Skin Skin Exam: Dry, Intact, Normal Color, Warm Assessment and Plan - Assessment and Plan (Free Text) Assessment: 36 year old female with history of Hypertension, medication noncompliance, NSTEMI and new onset ESRD on PD with temporary HD on discharge 11/19/16 presenting with epigastric pain. Recent discharge, 11/27/16, CT A/P without contrast showing no acute pathology and non-obstructive left kidney stone for similar symptoms. EGD 11/27/16 showed chronic Gastritis, H. pylori negative, and no acute pathology. No prior colonoscopy. Plan: >12/01 CT A/P IV contrast- non-obstructive left kidney stone - gallbladder thickening/trace fluid, mild CBD dilatation 7mm >negative Hernandez's sign >pending HIDA >recommend Urology evaluation due to left flank pain and kidney stone >recent EGD - no acute pathology, H. pylori negative >supportive care: pain control, anti-emetics, PPI >clear liquid diet, advance as tolerated >will follow clinical course <Scott Cruz - Last Filed: 12/02/16 09:10> Objective - Vital Signs/Intake and Output Vital Signs (last 24 hours): Temp Pulse Resp BP Pulse Ox 98 F 66 20 134/76 94 L 12/02/16 08:30 12/02/16 08:30 12/02/16 08:30 12/02/16 08:30 12/02/16 08:30 Intake and Output: 12/02/16 12/02/16 06:59 18:59 Intake Total 300 Balance 300 - Medications Medications: Current Medications Amlodipine Besylate (Norvasc) 10 mg PO DAILY [facility] Last Admin: 12/01/16 12:18 Dose: Not Given Aspirin (Ecotrin) 81 mg PO DAILY [facility] Last Admin: 12/01/16 09:40 Dose: 81 mg Calcium Acetate (Phoslo) 667 mg PO TIDCC [facility] Last Admin: 12/01/16 20:33 Dose: 667 mg Clonidine HCl (Catapres) 0.1 mg PO BID [facility] Last Admin: 12/01/16 20:33 Dose: 0.1 mg Escitalopram Oxalate (Lexapro) 10 mg PO DAILY [facility] Last Admin: 12/01/16 09:39 Dose: 10 mg Heparin Sodium (Porcine) (Heparin) 5,000 units SC Q12 [facility] Last Admin: 12/01/16 21:13 Dose: 5,000 units Moxifloxacin HCl (Avelox Iv 400mg/250ml Ns) 400 mg in 250 mls @ 167 mls/hr IVPB Q24H [facility] Last Admin: 12/01/16 15:16 Dose: 167 mls/hr Labetalol HCl (Normodyne) 300 mg PO TID [facility] Last Admin: 12/01/16 20:33 Dose: 300 mg Minoxidil (Minoxidil) 5 mg PO BID [facility] Last Admin: 12/01/16 20:33 Dose: 5 mg Morphine Sulfate (Morphine) 4 mg IVP Q4H PRN PRN Reason: Pain, severe (8-10) Last Admin: 12/02/16 05:16 Dose: 4 mg Ondansetron HCl (Zofran Inj) 4 mg IVP Q4 PRN PRN Reason: Nausea/Vomiting Pantoprazole Sodium (Protonix Ec Tab) 40 mg PO DAILY [facility] Last Admin: 12/01/16 09:39 Dose: 40 mg Pneumococcal Polyvalent Vaccine (Pneumovax 23 Vaccine) 0.5 ml IM .ONCE ONE Stop: 12/02/16 10:01 - Labs Labs: 12/02/16 07:26 12/02/16 07:26 Attending/Attestation - Attestation I have personally seen and examined this patient.: Yes I have fully participated in the care of the patient.: Yes I have reviewed all pertinent clinical information, including history, physical exam and plan: Yes Notes (Text): 12/02/16 09:05 I have seen and examined patient with GI fellow. She is seen resting in bed comfortably, though continues to endorse left sided flank discomfort. She denies nausea, vomiting, fever/chills. Tolerating PO liquids without difficulty. Review of vitals from today are normal. HTN ESRD on PD Abdominal pain, L flank pain Repeat CT imaging from yesterday reviewed by me showing non obstructing L nephrolithiasis, GB wall thickening with eliazar-cholecystic fluid - Liquid diet as tolerated - Awaiting HIDA scan, ordered by medical team - Continue with supportive care, anti-emetic therapy - Suggest urology evaluation for ongoing L flank pain and presence of nephrolithiasis - Recent EGD showed no significant abnormalities, will continue to monitor patient clinical course
[2016-12-02 07:35] LABS: BASO # 0.1 K/uL (0.0-0.2); BASO % 0.6 % (0.0-2.0); EOS # 0.2 K/uL (0.0-0.7); HEMATOCRIT 34.8 % (34.0-47.0); LYMPH % 10.3 % (20.0-40.0); MEAN CELL VOLUME 79.9 fL (81.0-99.0); MEAN CORPUSCULAR HEMOGLOBIN 25.9 pg (27.0-31.0); MEAN CORPUSCULAR HGB CONC 32.4 g/dL (33.0-37.0); MEAN PLATELET VOLUME 7.6 fL (7.2-11.7); MONO # 0.7 K/uL (0.0-0.8); MONO % 7.6 % (0.0-10.0); RED CELL DISTRIBUTION WIDTH 25.1 % (11.5-14.5); WHITE BLOOD COUNT 9.6 K/uL (4.8-10.8)
[2016-12-02 07:58] LABS: ALB/GLOB RATIO 1.4 (1.0-2.1); BILIRUBIN,TOTAL 0.7 mg/dL (0.2-1.3); CALCIUM 8.9 mg/dl (8.6-10.4); TOTAL PROTEIN 6.4 g/dL (6.3-8.3)
[2016-12-02] MEDS ORDERED: Pneumococcal 23-Valent Vaccine IM ONE (10:00)
--- NOTE | 2016-12-02 10:17 | CP.PCM.PN ---
Subjective - Date & Time of Evaluation Date of Evaluation: 12/02/16 Time of Evaluation: 10:15 - Subjective Subjective: seen and examined GI eval noted pt c/o persistent pain had hd yesterday, unremarkable Objective - Vital Signs/Intake and Output Vital Signs (last 24 hours): Temp Pulse Resp BP Pulse Ox 98 F 66 20 134/76 94 L 12/02/16 08:30 12/02/16 08:30 12/02/16 08:30 12/02/16 08:30 12/02/16 08:30 Intake and Output: 12/02/16 12/02/16 06:59 18:59 Intake Total 300 Balance 300 - Medications Medications: Current Medications Amlodipine Besylate (Norvasc) 10 mg PO DAILY [facility] Last Admin: 12/01/16 12:18 Dose: Not Given Aspirin (Ecotrin) 81 mg PO DAILY [facility] Last Admin: 12/01/16 09:40 Dose: 81 mg Calcium Acetate (Phoslo) 667 mg PO TIDCC [facility] Last Admin: 12/01/16 20:33 Dose: 667 mg Clonidine HCl (Catapres) 0.1 mg PO BID [facility] Last Admin: 12/01/16 20:33 Dose: 0.1 mg Escitalopram Oxalate (Lexapro) 10 mg PO DAILY [facility] Last Admin: 12/01/16 09:39 Dose: 10 mg Heparin Sodium (Porcine) (Heparin) 5,000 units SC Q12 [facility] Last Admin: 12/01/16 21:13 Dose: 5,000 units Moxifloxacin HCl (Avelox Iv 400mg/250ml Ns) 400 mg in 250 mls @ 167 mls/hr IVPB Q24H [facility] Last Admin: 12/01/16 15:16 Dose: 167 mls/hr Labetalol HCl (Normodyne) 300 mg PO TID [facility] Last Admin: 12/01/16 20:33 Dose: 300 mg Minoxidil (Minoxidil) 5 mg PO BID [facility] Last Admin: 12/01/16 20:33 Dose: 5 mg Morphine Sulfate (Morphine) 4 mg IVP Q4H PRN PRN Reason: Pain, severe (8-10) Last Admin: 12/02/16 05:16 Dose: 4 mg Ondansetron HCl (Zofran Inj) 4 mg IVP Q4 PRN PRN Reason: Nausea/Vomiting Pantoprazole Sodium (Protonix Ec Tab) 40 mg PO DAILY [facility] Last Admin: 12/01/16 09:39 Dose: 40 mg - Labs Labs: 12/02/16 07:26 12/02/16 07:26 - Constitutional Appears: Non-toxic, No Acute Distress - Head Exam Head Exam: NORMAL INSPECTION - Eye Exam Eye Exam: Normal appearance - ENT Exam ENT Exam: Mucous Membranes Moist, Normal Exam - Neck Exam Neck Exam: Normal Inspection - Respiratory Exam Respiratory Exam: Clear to Ausculation Bilateral, NORMAL BREATHING PATTERN - Cardiovascular Exam Cardiovascular Exam: REGULAR RHYTHM - GI/Abdominal Exam GI & Abdominal Exam: Distended, Soft Additional comments: pd catheter - Extremities Exam Extremities Exam: Normal Inspection Assessment and Plan (1) Hypertension Status: Acute (2) Dependency on pain medication Status: Acute (3) Abdominal pain Status: Acute (4) ESRD (end stage renal disease) Status: Acute - Assessment and Plan (Free Text) Assessment: -maintain hd mwf -plan for HIDA / r/o cholecystitis -recommend avoid narcotics
[2016-12-02] MEDS: Pantoprazole 40 mg EC Tab PO SCH (10:21)
--- NOTE | 2016-12-02 11:03 | CP.PCM.PN ---
<Leanna Courtney - Last Filed: 12/02/16 13:10> Subjective - Date & Time of Evaluation Date of Evaluation: 12/02/16 Time of Evaluation: 09:00 - Subjective Subjective: Medicine Progress Note- Dr. Denis Orr's service: Patient seen and examined at bedside this morning. She is still complaining of left flank pain. Patient denies abdominal pain this AM. She has no nausea or vomiting. She states her left PD site is not working. She denies chest pain, SOB , fevers, chills, nausea, vomiting. Patient went to first part of [facility] this morning. Patient denies history of kidney stones. Objective - Vital Signs/Intake and Output Vital Signs (last 24 hours): Temp Pulse Resp BP Pulse Ox 98 F 66 20 134/76 94 L 12/02/16 08:30 12/02/16 08:30 12/02/16 08:30 12/02/16 08:30 12/02/16 08:30 Intake and Output: 12/02/16 12/02/16 06:59 18:59 Intake Total 300 Balance 300 - Medications Medications: Current Medications Amlodipine Besylate (Norvasc) 10 mg PO DAILY [facility] Last Admin: 12/01/16 12:18 Dose: Not Given Aspirin (Ecotrin) 81 mg PO DAILY [facility] Last Admin: 12/02/16 10:20 Dose: Not Given Calcium Acetate (Phoslo) 667 mg PO TIDCC [facility] Last Admin: 12/02/16 10:21 Dose: Not Given Clonidine HCl (Catapres) 0.1 mg PO BID [facility] Last Admin: 12/01/16 20:33 Dose: 0.1 mg Escitalopram Oxalate (Lexapro) 10 mg PO DAILY [facility] Last Admin: 12/02/16 10:56 Dose: 10 mg Heparin Sodium (Porcine) (Heparin) 5,000 units SC Q12 [facility] Last Admin: 12/02/16 10:51 Dose: 5,000 units Moxifloxacin HCl (Avelox Iv 400mg/250ml Ns) 400 mg in 250 mls @ 167 mls/hr IVPB Q24H [facility] Last Admin: 12/01/16 15:16 Dose: 167 mls/hr Labetalol HCl (Normodyne) 300 mg PO TID [facility] Last Admin: 12/01/16 20:33 Dose: 300 mg Minoxidil (Minoxidil) 5 mg PO BID [facility] Last Admin: 12/01/16 20:33 Dose: 5 mg Morphine Sulfate (Morphine) 4 mg IVP Q4H PRN PRN Reason: Pain, severe (8-10) Last Admin: 12/02/16 10:54 Dose: 4 mg Ondansetron HCl (Zofran Inj) 4 mg IVP Q4 PRN PRN Reason: Nausea/Vomiting Pantoprazole Sodium (Protonix Ec Tab) 40 mg PO DAILY [facility] Last Admin: 12/02/16 10:21 Dose: Not Given - Labs Labs: 12/02/16 07:26 12/02/16 07:26 - Constitutional Appears: No Acute Distress - Head Exam Head Exam: NORMAL INSPECTION, NORMOCEPHALIC - Eye Exam Eye Exam: EOMI, Normal appearance - Neck Exam Neck Exam: Full ROM, Normal Inspection - Respiratory Exam Respiratory Exam: Clear to Ausculation Bilateral, NORMAL BREATHING PATTERN - Cardiovascular Exam Cardiovascular Exam: REGULAR RHYTHM, +S1, +S2 - GI/Abdominal Exam GI & Abdominal Exam: Soft. absent: Distended, Tenderness - Extremities Exam Extremities Exam: Normal Inspection. absent: Pedal Edema, Tenderness - Back Exam Back Exam: NORMAL INSPECTION - Neurological Exam Neurological Exam: Alert, Awake, Oriented x3 - Psychiatric Exam Psychiatric exam: Normal Affect, Normal Mood - Skin Skin Exam: Normal Color, Warm Assessment and Plan (1) Abdominal pain Assessment & Plan: - Afebrile and normal WBC count - GI, Dr. Cruz is consulted - CT abd/pelvis 12/01/16 showed dilated CBD at 7 mm and mild gallbladder wall thickening. Abd US done on 11/30 showed cholelithiasis. - Abd x ray showed no obstruction - Patient also underwent EGD procedure on last admission with Dr. Cruz., which showed normal esophagus, 1 cm hialtal hernia, gastritis. Biopsy showed mild chronic inflammation, negative for H pylori . GI recommends: - Continue with supportive care, anti-emetic therapy - Liquid diet as tolerated - F/U HIDA done today Status: Acute (2) Nephrolithiasis Assessment & Plan: Urology consult placed- Dr. Willis Murphy - for ongoing L flank pain and presence of nephrolithiasis. Status: Acute (3) HTN (hypertension) Assessment & Plan: Clonidine 0.1 mg PO BID Labetalol 300mg PO TID Minoxidil 5mg PO BID Status: Acute (4) ESRD (end stage renal disease) Assessment & Plan: Patient started on HD last admission 11/08/16 after she was found to have CKD and protenuria. Likely secondary to uncontrolled HTN. Patient with peritoneal dialysis cath in place (still not working). HD through R IJ permacath. Nephro consult placed- Dr. Jordan- help appreciated Cr this AM 4.4. Continue HD M, W, F Avoid narcotics as per nephro Status: Acute (5) Prophylactic measure Assessment & Plan: Heparin 5000 SC Q12H Protonix 40 mg PO daily Status: Acute - Assessment and Plan (Free Text) Assessment: Diastolic CHF -BP better controlled with increased lobetolol dose to 300mg TID- likely secondary to CKD -Permacath placed yesterday and undergoing HD today -Echo 11/10: LV systolic ventricular function is normal; moderately increased wall thickness; Grade III reversible restrictive diastolic dysfunction; Moderately increased L atrial volume; moderate pulmonary HTN; L pleural effusion ; LA pressure is elevated; consider restrictive cardiomyopathy -CXR 11/13: mild-mod pulmonary vascular congestion -proBNP 01335 on admission -Norvasc 10mg po daily -Hydralazine 75mg po q8 -Labetalol 200mg po tid -ASA 81mg po daily - Pt has normal EF, improving CHF, NSR EKG and currently asymptomatic. Proceed with peritoneal dialysis catheter insertion under general anesthesia. Case discussed with Dr. Carvajal <Vanessa Orr S - Last Filed: 12/02/16 18:13> Objective - Vital Signs/Intake and Output Vital Signs (last 24 hours): Temp Pulse Resp BP Pulse Ox 98.5 F 79 20 115/68 94 L 12/02/16 15:00 12/02/16 15:00 12/02/16 15:00 12/02/16 15:00 12/02/16 15:00 Intake and Output: 12/02/16 12/02/16 06:59 18:59 Intake Total 300 Balance 300 - Medications Medications: Current Medications Amlodipine Besylate (Norvasc) 10 mg PO DAILY [facility] Last Admin: 12/02/16 13:08 Dose: Not Given Aspirin (Ecotrin) 81 mg PO DAILY [facility] Last Admin: 12/02/16 10:20 Dose: Not Given Calcium Acetate (Phoslo) 667 mg PO TIDCC [facility] Last Admin: 12/02/16 13:08 Dose: Not Given Clonidine HCl (Catapres) 0.1 mg PO BID [facility] Last Admin: 12/02/16 13:07 Dose: Not Given Escitalopram Oxalate (Lexapro) 10 mg PO DAILY [facility] Last Admin: 12/02/16 10:56 Dose: 10 mg Heparin Sodium (Porcine) (Heparin) 5,000 units SC Q12 [facility] Last Admin: 12/02/16 10:51 Dose: 5,000 units Moxifloxacin HCl (Avelox Iv 400mg/250ml Ns) 400 mg in 250 mls @ 167 mls/hr IVPB Q24H [facility] Last Admin: 12/02/16 15:07 Dose: 167 mls/hr Labetalol HCl (Normodyne) 300 mg PO TID [facility] Last Admin: 12/02/16 18:12 Dose: 300 mg Minoxidil (Minoxidil) 5 mg PO BID [facility] Last Admin: 12/02/16 18:10 Dose: 5 mg Morphine Sulfate (Morphine) 4 mg IVP Q4H PRN PRN Reason: Pain, severe (8-10) Last Admin: 12/02/16 10:54 Dose: 4 mg Ondansetron HCl (Zofran Inj) 4 mg IVP Q4 PRN PRN Reason: Nausea/Vomiting Pantoprazole Sodium (Protonix Ec Tab) 40 mg PO DAILY [facility] Last Admin: 12/02/16 10:21 Dose: Not Given - Labs Labs: 12/02/16 07:26 12/02/16 07:26 Attending/Attestation - Attestation I have personally seen and examined this patient.: Yes I have fully participated in the care of the patient.: Yes I have reviewed all pertinent clinical information, including history, physical exam and plan: Yes Notes (Text): 12/02/16 18:12 Patient's for HIDA scan patients to be seen by urology for stone continue same p.o. pain and no pain medications IV antibiotic follow-up with the HIDA scan
[2016-12-02] MEDS: Labetalol Hydrochloride 300 mg Tab PO SCH ×2 (13:08→18:12)
[2016-12-02] MEDS: Moxifloxacin IV 400mg/250ml NS 400 MG/250 ML BAG IVPB SCH (15:07)
--- NOTE | 2016-12-02 15:48 | NM ---
PROCEDURE: Nuclear Medicine Hepatobiliary Scan HISTORY: dilated CBD COMPARISON: None available. TECHNIQUE: 5.1 mCi of technetium 99m Mebrofenin was administered intravenously. Planar images of the abdomen were obtained at 5 min intervals to 60 mins. Delayed images were also obtained up to 3 hours post administration. FINDINGS: LIVER: Timely and homogenous uptake. COMMON BILE DUCT: identified at 02/09/2015 mins. GALLBLADDER: Not visualized. SMALL BOWEL: Identified at 20 mins. IMPRESSION: Cystic duct obstruction. Otherwise unremarkable.
--- NOTE | 2016-12-02 17:10 | CP.PCM.PN ---
Subjective - Date & Time of Evaluation Date of Evaluation: 12/02/16 Time of Evaluation: 08:40 - Subjective Subjective: clinically same Objective - Vital Signs/Intake and Output Vital Signs (last 24 hours): Temp Pulse Resp BP Pulse Ox 98.5 F 79 20 115/68 94 L 12/02/16 15:00 12/02/16 15:00 12/02/16 15:00 12/02/16 15:00 12/02/16 15:00 Intake and Output: 12/02/16 12/02/16 06:59 18:59 Intake Total 300 Balance 300 - Medications Medications: Current Medications Amlodipine Besylate (Norvasc) 10 mg PO DAILY [facility] Last Admin: 12/02/16 13:08 Dose: Not Given Aspirin (Ecotrin) 81 mg PO DAILY [facility] Last Admin: 12/02/16 10:20 Dose: Not Given Calcium Acetate (Phoslo) 667 mg PO TIDCC [facility] Last Admin: 12/02/16 13:08 Dose: Not Given Clonidine HCl (Catapres) 0.1 mg PO BID [facility] Last Admin: 12/02/16 13:07 Dose: Not Given Escitalopram Oxalate (Lexapro) 10 mg PO DAILY [facility] Last Admin: 12/02/16 10:56 Dose: 10 mg Heparin Sodium (Porcine) (Heparin) 5,000 units SC Q12 [facility] Last Admin: 12/02/16 10:51 Dose: 5,000 units Moxifloxacin HCl (Avelox Iv 400mg/250ml Ns) 400 mg in 250 mls @ 167 mls/hr IVPB Q24H [facility] Last Admin: 12/02/16 15:07 Dose: 167 mls/hr Labetalol HCl (Normodyne) 300 mg PO TID [facility] Last Admin: 12/02/16 13:08 Dose: Not Given Minoxidil (Minoxidil) 5 mg PO BID [facility] Last Admin: 12/02/16 11:04 Dose: 5 mg Morphine Sulfate (Morphine) 4 mg IVP Q4H PRN PRN Reason: Pain, severe (8-10) Last Admin: 12/02/16 10:54 Dose: 4 mg Ondansetron HCl (Zofran Inj) 4 mg IVP Q4 PRN PRN Reason: Nausea/Vomiting Pantoprazole Sodium (Protonix Ec Tab) 40 mg PO DAILY [facility] Last Admin: 12/02/16 10:21 Dose: Not Given - Labs Labs: 12/02/16 07:26 12/02/16 07:26 - Constitutional Appears: Well - Head Exam Head Exam: ATRAUMATIC, NORMAL INSPECTION, NORMOCEPHALIC - Eye Exam Eye Exam: EOMI, Normal appearance, PERRL Pupil Exam: NORMAL ACCOMODATION, PERRL - ENT Exam ENT Exam: Mucous Membranes Moist, Normal Exam - Neck Exam Neck Exam: Full ROM, Normal Inspection. absent: Lymphadenopathy - Respiratory Exam Respiratory Exam: Decreased Breath Sounds - Cardiovascular Exam Cardiovascular Exam: REGULAR RHYTHM, +S1, +S2 - GI/Abdominal Exam GI & Abdominal Exam: Soft, Diminished Bowel Sounds - Rectal Exam Rectal Exam: Deferred Assessment and Plan - Assessment and Plan (Free Text) Plan: Afebrile and normal WBC count - GI, Dr. Cruz is consulted - CT abd/pelvis 12/01/16 showed dilated CBD at 7 mm and mild gallbladder wall thickening. Abd US done on 11/30 showed cholelithiasis. - Abd x ray showed no obstruction - Patient also underwent EGD procedure on last admission with Dr. Cruz., which showed normal esophagus, 1 cm hialtal hernia, gastritis. Biopsy showed mild chronic inflammation, negative for H pylori . GI recommends: - Continue with supportive care, anti-emetic therapy - Liquid diet as tolerated - F/U HIDA done today Status: Acute (2) Nephrolithiasis Assessment & Plan: Urology consult placed- Dr. Willis Murphy - for ongoing L flank pain and presence of nephrolithiasis. Status: Acute (3) HTN (hypertension) Assessment & Plan: Clonidine 0.1 mg PO BID Labetalol 300mg PO TID Minoxidil 5mg PO BID Status: Acute (4) ESRD (end stage renal disease) Assessment & Plan: Patient started on HD last admission 11/08/16 after she was found to have CKD and protenuria. Likely secondary to uncontrolled HTN. Patient with peritoneal dialysis cath in place (still not working). HD through R [facility] permacath. Nephro consult placed- Dr. Jordan- help appreciated Cr this AM 4.4. Continue HD M, W, F Avoid narcotics as per nephro Status: Acute (5) Prophylactic measure Assessment & Plan: Heparin 5000 SC Q12H Protonix 40 mg PO daily Status: Acute - Assessment and Plan (Free Text) Assessment: Diastolic CHF -BP better controlled with increased lobetolol dose to 300mg TID- likely secondary to CKD -Permacath placed yesterday and undergoing HD today -Echo 11/10: LV systolic ventricular function is normal; moderately increased wall thickness; Grade III reversible restrictive diastolic dysfunction; Moderately increased L atrial volume; moderate pulmonary HTN; L pleural effusion ; LA pressure is elevated; consider restrictive cardiomyopathy -CXR 11/13: mild-mod pulmonary vascular congestion -proBNP 40638 on admission -Norvasc 10mg po daily -Hydralazine 75mg po q8 -Labetalol 200mg po tid -ASA 81mg po daily - Pt has normal EF, improving CHF, NSR EKG and currently asymptomatic. Proceed with peritoneal dialysis catheter insertion under general anesthesia.
--- NOTE | 2016-12-02 17:11 | CARD ---
APPROVED REPORT EKG Measurement Heart [id number] <Conclusion> Normal sinus rhythm LVH with repolarization abnormality. Abnormal ECG
--- NOTE | 2016-12-02 17:34 | PCM.URO ---
Urology Progress Note - Objective Lab Results Last 24 Hours: Laboratory Results - last 24 hr 12/02/16 12/02/16 12/02/16 07:26 07:26 08:13 WBC 9.6 RBC 4.36 Hgb 11.3 Hct 34.8 MCV 79.9 L MCH 25.9 L MCHC 32.4 L RDW 25.1 H Plt Count 267 MPV 7.6 Neut % (Auto) 79.5 H Lymph % (Auto) 10.3 L Barron % (Auto) 7.6 Eos % (Auto) 2.0 Baso % (Auto) 0.6 Neut # 7.6 H Lymph # 1.0 Barron # 0.7 Eos # 0.2 Baso # 0.1 Sodium 134 Potassium 4.0 Chloride 92 L Carbon Dioxide 27 Anion Gap 19 BUN 12 Creatinine 4.4 H Est GFR ( Amer) 14 Est GFR (Non-Af Amer) 11 Random Glucose 81 Calcium 8.9 Total Bilirubin 0.7 AST 15 ALT 26 Alkaline Phosphatase 99 Total Protein 6.4 Albumin 3.7 Globulin 2.7 Albumin/Globulin Ratio 1.4 Urine HCG, Qual Negative Intake & Output: Intake & Output 12/01/16 12/02/16 12/02/16 18:59 06:59 18:59 Intake Total 400 300 Balance 400 300 Weight 195 lb Intake: Oral 400 300 Other: # Voids Urine, Voided 1 1 # Bowel Movements 0 0 Vital Signs: Vital Signs - 24 hr 12/01/16 12/01/16 12/01/16 17:38 18:08 18:20 Temperature Pulse Rate Respiratory Rate Blood Pressure Blood Pressure 131/81 128/81 129/81 [Left Arm] O2 Sat by Pulse Oximetry 12/01/16 12/01/16 12/01/16 18:38 18:50 19:20 Temperature Pulse Rate Respiratory Rate Blood Pressure Blood Pressure 129/81 128/83 121/81 [Left Arm] O2 Sat by Pulse Oximetry 12/01/16 12/01/16 12/01/16 19:37 19:50 20:10 Temperature Pulse Rate 79 Respiratory 16 Rate Blood Pressure 122/77 Blood Pressure 142/88 145/96 H [Left Arm] O2 Sat by Pulse Oximetry 12/02/16 12/02/16 12/02/16 00:23 08:30 15:00 Temperature 99 F 98 F 98.5 F Pulse Rate 74 66 79 Respiratory 20 20 20 Rate Blood Pressure 122/73 134/76 115/68 Blood Pressure [Left Arm] O2 Sat by Pulse 99 94 L 94 L Oximetry
--- NOTE | 2016-12-03 05:24 | CON ---
DATE: 12/03/2016 HISTORY OF PRESENT ILLNESS: The patient is a pleasant lady of 36 years old recently diagnosed with renal failure and on dialysis. She is going to have peritoneal dialysis as her plan. From urology standpoint, she is noted to have kidney stone and therefore, urology is consulted for further recommendations and plans. PAST MEDICAL AND SURGICAL HISTORY: As listed on the chart. The patient of Dr. Jordan, seen in the hospital. She is under the Dr. Catherine Orr service. PHYSICAL EXAMINATION: GENERAL: Well-nourished female. She is currently resting comfortably in her bed. VITAL SIGNS: Noted within normal limits. ABDOMEN: Relatively soft. There is no real CVA tenderness noted. DIAGNOSES: Urolithiasis, abdominal pain and flank pain. RECOMMENDATIONS: We will review the films more carefully and then we discuss with the patient options for the possibility for treatment of stones, but this seems that other issues going on for now, so we will need to follow the patient. So, the plan is as follows, review imaging and then at some point, plan for evaluation for stone treatments, but not for right now. Ge Murphy MD
[2016-12-03] MEDS: Morphine 4 MG/ML VIAL IVP PRN ×4 (05:31→21:10)
[2016-12-03 07:40] LABS: BASO % 0.5 % (0.0-2.0); EOS # 0.3 K/uL (0.0-0.7); EOS % 3.1 % (0.0-4.0); HEMATOCRIT 34.3 % (34.0-47.0); LYMPH # 0.8 K/uL (1.0-4.3); LYMPH % 8.9 % (20.0-40.0); MEAN CELL VOLUME 79.4 fL (81.0-99.0); MEAN CORPUSCULAR HEMOGLOBIN 25.7 pg (27.0-31.0); MEAN CORPUSCULAR HGB CONC 32.3 g/dL (33.0-37.0); MEAN PLATELET VOLUME 7.8 fL (7.2-11.7); MONO # 0.8 K/uL (0.0-0.8); MONO % 9.2 % (0.0-10.0); PLATELET COUNT 296 K/uL (130-400); RED CELL DISTRIBUTION WIDTH 24.8 % (11.5-14.5); WHITE BLOOD COUNT 9.1 K/uL (4.8-10.8)
[2016-12-03 07:49] LABS: POTASSIUM 3.8 mmol/L (3.6-5.2)
[2016-12-03 07:51] LABS: ALB/GLOB RATIO 1.4 (1.0-2.1); BILIRUBIN,TOTAL 0.6 mg/dL (0.2-1.3); CALCIUM 9.2 mg/dl (8.6-10.4); TOTAL PROTEIN 6.6 g/dL (6.3-8.3)
[2016-12-03 07:52] LABS: MAGNESIUM 1.9 mg/dL (1.6-2.3)
[2016-12-03 09:03] LABS: EOSINOPHIL 3 % (0-4); NEUTROPHIL 86 % (50-75); TOTAL CELLS COUNTED 100
[2016-12-03] MEDS: Labetalol Hydrochloride 300 mg Tab PO SCH ×3 (10:10→17:06)
[2016-12-03] MEDS: Pantoprazole 40 mg EC Tab PO SCH (10:11)
--- NOTE | 2016-12-03 10:20 | CP.PCM.PN ---
Subjective - Date & Time of Evaluation Date of Evaluation: 12/03/16 Time of Evaluation: 08:00 - Subjective Subjective: clinically same Objective - Vital Signs/Intake and Output Vital Signs (last 24 hours): Temp Pulse Resp BP Pulse Ox 98 F 80 20 161/91 H 97 12/03/16 08:59 12/03/16 08:59 12/03/16 08:59 12/03/16 08:59 12/03/16 08:59 - Medications Medications: Current Medications Amlodipine Besylate (Norvasc) 10 mg PO DAILY [facility] Last Admin: 12/03/16 10:10 Dose: Not Given Aspirin (Ecotrin) 81 mg PO DAILY [facility] Last Admin: 12/03/16 10:10 Dose: Not Given Calcium Acetate (Phoslo) 667 mg PO TIDCC [facility] Last Admin: 12/03/16 08:26 Dose: 667 mg Clonidine HCl (Catapres) 0.1 mg PO BID [facility] Last Admin: 12/03/16 10:10 Dose: Not Given Escitalopram Oxalate (Lexapro) 10 mg PO DAILY [facility] Last Admin: 12/03/16 10:10 Dose: Not Given Heparin Sodium (Porcine) (Heparin) 5,000 units SC Q12 [facility] Last Admin: 12/03/16 10:10 Dose: Not Given Moxifloxacin HCl (Avelox Iv 400mg/250ml Ns) 400 mg in 250 mls @ 167 mls/hr IVPB Q24H [facility] Last Admin: 12/02/16 15:07 Dose: 167 mls/hr Labetalol HCl (Normodyne) 300 mg PO TID [facility] Last Admin: 12/03/16 10:10 Dose: Not Given Minoxidil (Minoxidil) 5 mg PO BID [facility] Last Admin: 12/03/16 10:10 Dose: Not Given Morphine Sulfate (Morphine) 4 mg IVP Q4H PRN PRN Reason: Pain, severe (8-10) Last Admin: 12/03/16 05:31 Dose: 4 mg Ondansetron HCl (Zofran Inj) 4 mg IVP Q4 PRN PRN Reason: Nausea/Vomiting Pantoprazole Sodium (Protonix Ec Tab) 40 mg PO DAILY [facility] Last Admin: 12/03/16 10:11 Dose: Not Given - Labs Labs: 12/03/16 07:29 12/03/16 07:29 - Constitutional Appears: Well - Head Exam Head Exam: ATRAUMATIC, NORMAL INSPECTION, NORMOCEPHALIC - Eye Exam Eye Exam: EOMI, Normal appearance, PERRL Pupil Exam: NORMAL ACCOMODATION, PERRL - ENT Exam ENT Exam: Mucous Membranes Moist, Normal Exam - Neck Exam Neck Exam: Full ROM, Normal Inspection. absent: Lymphadenopathy - Respiratory Exam Respiratory Exam: Decreased Breath Sounds - Cardiovascular Exam Cardiovascular Exam: REGULAR RHYTHM, +S1, +S2 - GI/Abdominal Exam GI & Abdominal Exam: Soft, Diminished Bowel Sounds - Rectal Exam Rectal Exam: Deferred Assessment and Plan (1) AMPARO (acute kidney injury) Status: Acute (2) Abdominal pain Status: Acute (3) Acute cholecystitis Status: Acute (4) Anemia Status: Acute (5) CHF (congestive heart failure) Status: Acute (6) CKD (chronic kidney disease) stage 5, GFR less than 15 ml/min Status: Acute (7) CKD stage 5 secondary to hypertension Status: Acute (8) Chest pain Status: Acute (9) Dependency on pain medication Status: Acute (10) ESRD (end stage renal disease) Status: Acute (11) ESRD (end stage renal disease) Status: Acute (12) ESRD (end stage renal disease) Status: Acute (13) Elevated lipase Status: Acute (14) End stage renal disease Status: Acute (15) HTN (hypertension) Status: Acute (16) Hypertension Status: Acute (17) Hypertension Status: Acute (18) Hypertensive chronic kidney disease with stage 5 chronic kidney disease or end stage renal disease Status: Acute (19) Hypertensive emergency Status: Acute (20) Hypertensive urgency Status: Acute (21) Hypokalemia Status: Acute (22) Hypokalemia Status: Acute (23) Hypokalemia Status: Acute (24) Hypoxia Status: Acute (25) Intractable abdominal pain Status: Acute (26) NSTEMI (non-ST elevated myocardial infarction) Status: Acute (27) Nausea Status: Acute (28) Nausea & vomiting Status: Acute (29) Nephrolithiasis Status: Acute (30) PUD (peptic ulcer disease) Status: Acute (31) Pneumonia Status: Acute (32) Prophylactic measure Status: Acute (33) Prophylactic measure Status: Acute (34) Proteinuria Status: Acute (35) Renal failure Status: Acute (36) Renal insufficiency Status: Acute (37) Uncontrolled hypertension Status: Acute (38) Vomiting Status: Acute - Assessment and Plan (Free Text) Plan: No acute event overnight HIDA scan report seen and discussed Problem with family Continue aspirin Labetalol Norvasc Heparin subcu Avelox Gastro on board
--- NOTE | 2016-12-03 11:10 | CP.PCM.PN ---
<Hannah Grady - Last Filed: 12/03/16 11:08> Subjective - Date & Time of Evaluation Date of Evaluation: 12/03/16 Time of Evaluation: 11:08 - Subjective Subjective: Gastroenterology Fellow/PGY5 Progress Note Patient notes ongoing left sided flank pain. No further episodes of vomiting. Tolerating clear liquid diet. A 12-point review of systems negative except for as above. Objective - Vital Signs/Intake and Output Vital Signs (last 24 hours): Temp Pulse Resp BP Pulse Ox 98 F 80 20 150/90 97 12/03/16 08:59 12/03/16 08:59 12/03/16 08:59 12/03/16 10:20 12/03/16 08:59 - Medications Medications: Current Medications Amlodipine Besylate (Norvasc) 10 mg PO DAILY [facility] Last Admin: 12/03/16 10:10 Dose: Not Given Aspirin (Ecotrin) 81 mg PO DAILY [facility] Last Admin: 12/03/16 10:10 Dose: Not Given Calcium Acetate (Phoslo) 667 mg PO TIDCC [facility] Last Admin: 12/03/16 08:26 Dose: 667 mg Clonidine HCl (Catapres) 0.1 mg PO BID [facility] Last Admin: 12/03/16 10:10 Dose: Not Given Escitalopram Oxalate (Lexapro) 10 mg PO DAILY [facility] Last Admin: 12/03/16 10:10 Dose: Not Given Heparin Sodium (Porcine) (Heparin) 5,000 units SC Q12 [facility] Last Admin: 12/03/16 10:10 Dose: Not Given Moxifloxacin HCl (Avelox Iv 400mg/250ml Ns) 400 mg in 250 mls @ 167 mls/hr IVPB Q24H [facility] Last Admin: 12/02/16 15:07 Dose: 167 mls/hr Labetalol HCl (Normodyne) 300 mg PO TID [facility] Last Admin: 12/03/16 10:10 Dose: Not Given Minoxidil (Minoxidil) 5 mg PO BID [facility] Last Admin: 12/03/16 10:10 Dose: Not Given Morphine Sulfate (Morphine) 4 mg IVP Q4H PRN PRN Reason: Pain, severe (8-10) Last Admin: 12/03/16 05:31 Dose: 4 mg Ondansetron HCl (Zofran Inj) 4 mg IVP Q4 PRN PRN Reason: Nausea/Vomiting Pantoprazole Sodium (Protonix Ec Tab) 40 mg PO DAILY [facility] Last Admin: 12/03/16 10:11 Dose: Not Given - Labs Labs: 12/03/16 07:29 12/03/16 07:29 - Constitutional Appears: Non-toxic, No Acute Distress - Head Exam Head Exam: ATRAUMATIC, NORMOCEPHALIC - Eye Exam Eye Exam: EOMI, PERRL Pupil Exam: PERRL. absent: Miosis, Mydriatic - ENT Exam ENT Exam: Mucous Membranes Moist, Normal Oropharynx - Neck Exam Neck Exam: Full ROM, Normal Inspection - Respiratory Exam Respiratory Exam: Clear to Ausculation Bilateral. absent: Rales, Rhonchi, Wheezes - Cardiovascular Exam Cardiovascular Exam: RRR, +S1, +S2. absent: Gallop, Rubs - GI/Abdominal Exam GI & Abdominal Exam: Soft, Normal Bowel Sounds. absent: Distended, Firm, Guarding, Rigid, Tenderness, Organomegaly, Rebound - Extremities Exam Extremities Exam: Full ROM. absent: Pedal Edema - Back Exam Back Exam: CVA tenderness (L) - Neurological Exam Neurological Exam: Alert, Awake - Psychiatric Exam Psychiatric exam: Normal Affect, Normal Mood - Skin Skin Exam: Dry, Intact, Normal Color, Warm Assessment and Plan - Assessment and Plan (Free Text) Assessment: 36 year old female with history of Hypertension, medication noncompliance, NSTEMI and new onset ESRD on PD with temporary HD on discharge 11/19/16 presenting with epigastric pain. Recent discharge for epigastric pain with CT A /P without contrast showing no acute pathology and non-obstructive left kidney stone and EGD 11/27/16 showed chronic Gastritis, H. pylori negative, and no acute pathology. Repeat CT A/P IV contrast (12/01/16) showed non-obstructive left kidney stone, gallbladder thickening/trace fluid, and mild CBD dilatation 7mm without filling defects. No prior colonoscopy. Plan: >HIDA-cystic duct obstruction >recommend surgery evaluation > Urology following- outpatient follow up >supportive care: pain control, anti-emetics, PPI >clear liquid diet,await surgical evaluation for diet recommendation >thank you for opportunity to participate in the care of this patient <Bi Morfin - Last Filed: 12/03/16 14:44> Objective - Vital Signs/Intake and Output Vital Signs (last 24 hours): Temp Pulse Resp BP Pulse Ox 97.9 F 81 17 173/94 H 93 L 12/03/16 12:20 12/03/16 12:20 12/03/16 12:20 12/03/16 12:20 12/03/16 12:20 - Medications Medications: Current Medications Amlodipine Besylate (Norvasc) 10 mg PO DAILY [facility] Last Admin: 12/03/16 10:10 Dose: Not Given Aspirin (Ecotrin) 81 mg PO DAILY [facility] Last Admin: 12/03/16 10:10 Dose: Not Given Calcium Acetate (Phoslo) 667 mg PO TIDCC [facility] Last Admin: 12/03/16 12:30 Dose: 667 mg Clonidine HCl (Catapres) 0.2 mg PO BID [facility] Escitalopram Oxalate (Lexapro) 10 mg PO DAILY [facility] Last Admin: 12/03/16 10:10 Dose: Not Given Heparin Sodium (Porcine) (Heparin) 5,000 units SC Q12 [facility] Last Admin: 12/03/16 10:10 Dose: Not Given Moxifloxacin HCl (Avelox Iv 400mg/250ml Ns) 400 mg in 250 mls @ 167 mls/hr IVPB Q24H [facility] Last Admin: 12/03/16 13:05 Dose: 167 mls/hr Labetalol HCl (Normodyne) 300 mg PO TID [facility] Last Admin: 12/03/16 13:46 Dose: 300 mg Minoxidil (Minoxidil) 5 mg PO BID [facility] Last Admin: 12/03/16 10:10 Dose: Not Given Morphine Sulfate (Morphine) 4 mg IVP Q4H PRN PRN Reason: Pain, severe (8-10) Last Admin: 12/03/16 12:43 Dose: 4 mg Ondansetron HCl (Zofran Inj) 4 mg IVP Q4 PRN PRN Reason: Nausea/Vomiting Pantoprazole Sodium (Protonix Ec Tab) 40 mg PO DAILY [facility] Last Admin: 12/03/16 10:11 Dose: Not Given - Labs Labs: 12/03/16 07:29 12/03/16 07:29 Attending/Attestation - Attestation I have personally seen and examined this patient.: Yes I have fully participated in the care of the patient.: Yes I have reviewed all pertinent clinical information, including history, physical exam and plan: Yes Notes (Text): 12/03/16 14:41 36 year old female with h/o HTN, NSTEMI, ESRD on PD / HD admitted with epigastric pain found to have cholelithiasis, possible cholecystitis. 1. Cholecystitis 2. Cholelithiasis Plan: -recommend surgical consideration of cholecystectomy -no evidence to suggest choledocholithisais -supportive care -diet as tolerated -will sign off at this time
--- NOTE | 2016-12-03 12:59 | CP.PCM.PN ---
Subjective - Date & Time of Evaluation Date of Evaluation: 12/03/16 Time of Evaluation: 12:56 - Subjective Subjective: s/p dialysis this AM- UF 2000ml BP remains high Being evaluated for choleycystitis- will need gallbladder surgery Gallbladder non-visualized on HIDA scan Labs acceptable Only complaint is abdominal pains, nausea No dyspnea, HAs, CPs, f, chills Objective - Vital Signs/Intake and Output Vital Signs (last 24 hours): Temp Pulse Resp BP Pulse Ox 98 F 80 20 184/110 H 97 12/03/16 08:59 12/03/16 08:59 12/03/16 08:59 12/03/16 11:20 12/03/16 08:59 - Medications Medications: Current Medications Amlodipine Besylate (Norvasc) 10 mg PO DAILY [facility] Last Admin: 12/03/16 10:10 Dose: Not Given Aspirin (Ecotrin) 81 mg PO DAILY [facility] Last Admin: 12/03/16 10:10 Dose: Not Given Calcium Acetate (Phoslo) 667 mg PO TIDCC [facility] Last Admin: 12/03/16 08:26 Dose: 667 mg Clonidine HCl (Catapres) 0.1 mg PO BID [facility] Last Admin: 12/03/16 11:26 Dose: 0.1 mg Escitalopram Oxalate (Lexapro) 10 mg PO DAILY [facility] Last Admin: 12/03/16 10:10 Dose: Not Given Heparin Sodium (Porcine) (Heparin) 5,000 units SC Q12 [facility] Last Admin: 12/03/16 10:10 Dose: Not Given Moxifloxacin HCl (Avelox Iv 400mg/250ml Ns) 400 mg in 250 mls @ 167 mls/hr IVPB Q24H [facility] Last Admin: 12/02/16 15:07 Dose: 167 mls/hr Labetalol HCl (Normodyne) 300 mg PO TID [facility] Last Admin: 12/03/16 10:10 Dose: Not Given Minoxidil (Minoxidil) 5 mg PO BID [facility] Last Admin: 12/03/16 10:10 Dose: Not Given Morphine Sulfate (Morphine) 4 mg IVP Q4H PRN PRN Reason: Pain, severe (8-10) Last Admin: 12/03/16 12:43 Dose: 4 mg Ondansetron HCl (Zofran Inj) 4 mg IVP Q4 PRN PRN Reason: Nausea/Vomiting Pantoprazole Sodium (Protonix Ec Tab) 40 mg PO DAILY [facility] Last Admin: 12/03/16 10:11 Dose: Not Given - Labs Labs: 12/03/16 07:29 12/03/16 07:29 - Constitutional Appears: No Acute Distress, Chronically Ill - Head Exam Head Exam: ATRAUMATIC, NORMAL INSPECTION - Eye Exam Eye Exam: EOMI, Normal appearance - Neck Exam Neck Exam: Normal Inspection. absent: Tenderness - Respiratory Exam Respiratory Exam: Clear to Ausculation Bilateral, NORMAL BREATHING PATTERN - Cardiovascular Exam Cardiovascular Exam: REGULAR RHYTHM, +S1 - GI/Abdominal Exam GI & Abdominal Exam: Soft, Tenderness - Extremities Exam Extremities Exam: Normal Inspection. absent: Tenderness - Neurological Exam Neurological Exam: Alert, CN II-XII Intact - Skin Skin Exam: Dry, Warm Assessment and Plan (1) PUD (peptic ulcer disease) Status: Acute (2) Dependency on pain medication Status: Acute (3) HTN (hypertension) Status: Acute (4) ESRD (end stage renal disease) Status: Acute (5) Elevated lipase Status: Acute (6) Acute cholecystitis Status: Acute - Assessment and Plan (Free Text) Plan: Increase BP control Dialysis MWF Surgery- likely today for choleycystitis
[2016-12-03] MEDS: Moxifloxacin IV 400mg/250ml NS 400 MG/250 ML BAG IVPB SCH (13:05)
--- NOTE | 2016-12-03 13:55 | CP.PCM.PN ---
<Jacquelyn Oswald - Last Filed: 12/03/16 14:35> Subjective - Date & Time of Evaluation Date of Evaluation: 12/03/16 Time of Evaluation: 13:53 - Subjective Subjective: PGY2 progress note for Dr. Orr Pt is seen and examined at bedside. No acute events overnight. Patient is stating that abd pain has improved slightly, now 8/10 in severity. Patient denies having any N/V/D/C. Patient is tolerating liquid diet. Denies having any CP, SOB, coughing. Objective - Vital Signs/Intake and Output Vital Signs (last 24 hours): Temp Pulse Resp BP Pulse Ox 97.9 F 81 17 173/94 H 93 L 12/03/16 12:20 12/03/16 12:20 12/03/16 12:20 12/03/16 12:20 12/03/16 12:20 - Medications Medications: Current Medications Amlodipine Besylate (Norvasc) 10 mg PO DAILY [facility] Last Admin: 12/03/16 10:10 Dose: Not Given Aspirin (Ecotrin) 81 mg PO DAILY [facility] Last Admin: 12/03/16 10:10 Dose: Not Given Calcium Acetate (Phoslo) 667 mg PO TIDCC [facility] Last Admin: 12/03/16 12:30 Dose: 667 mg Clonidine HCl (Catapres) 0.2 mg PO BID [facility] Escitalopram Oxalate (Lexapro) 10 mg PO DAILY [facility] Last Admin: 12/03/16 10:10 Dose: Not Given Heparin Sodium (Porcine) (Heparin) 5,000 units SC Q12 [facility] Last Admin: 12/03/16 10:10 Dose: Not Given Moxifloxacin HCl (Avelox Iv 400mg/250ml Ns) 400 mg in 250 mls @ 167 mls/hr IVPB Q24H [facility] Last Admin: 12/03/16 13:05 Dose: 167 mls/hr Labetalol HCl (Normodyne) 300 mg PO TID [facility] Last Admin: 12/03/16 13:46 Dose: 300 mg Minoxidil (Minoxidil) 5 mg PO BID [facility] Last Admin: 12/03/16 10:10 Dose: Not Given Morphine Sulfate (Morphine) 4 mg IVP Q4H PRN PRN Reason: Pain, severe (8-10) Last Admin: 12/03/16 12:43 Dose: 4 mg Ondansetron HCl (Zofran Inj) 4 mg IVP Q4 PRN PRN Reason: Nausea/Vomiting Pantoprazole Sodium (Protonix Ec Tab) 40 mg PO DAILY [facility] Last Admin: 12/03/16 10:11 Dose: Not Given - Labs Labs: 12/03/16 07:29 12/03/16 07:29 Assessment and Plan - Assessment and Plan (Free Text) Assessment: (1) Abdominal pain - Afebrile and normal WBC count - GI, Dr. Cruz is consulted - Surgery, Dr. Burgos is consulted. - HIDA scan showed cystic duct obstruction - CT abd/pelvis 12/01/16 showed dilated CBD at 7 mm and mild gallbladder wall thickening. Abd US done on 11/30 showed cholelithiasis. - Abd x ray showed no obstruction - Patient also underwent EGD procedure on last admission with Dr. Cruz., which showed normal esophagus, 1 cm hialtal hernia, gastritis. Biopsy showed mild chronic inflammation, negative for H pylori . - Continue Avelox (2) Nephrolithiasis Urology consult placed- Dr. Willis Murphy - for ongoing L flank pain and presence of nephrolithiasis. Pending recs (3) HTN (hypertension) Clonidine 0.1 mg PO BID Labetalol 300mg PO TID Minoxidil 5mg PO BID (4) ESRD (end stage renal disease) Patient started on HD last admission 11/08/16 after she was found to have CKD and protenuria. Likely secondary to uncontrolled HTN. Patient with peritoneal dialysis cath in place (still not working) by Dr. Burgos. HD through R IJ permacath. Nephro consult placed- Dr. Jordan- help appreciated Continue HD M, W, F Avoid narcotics as per nephro (5) Prophylactic measure Heparin 5000 SC Q12H Protonix 40 mg PO daily Orders and management per Dr. Orr <Vanessa Orr - Last Filed: 12/03/16 22:49> Objective - Vital Signs/Intake and Output Vital Signs (last 24 hours): Temp Pulse Resp BP Pulse Ox 98.4 F 65 20 128/68 97 12/03/16 14:00 12/03/16 14:00 12/03/16 14:00 12/03/16 14:00 12/03/16 14:00 Intake and Output: 12/03/16 12/04/16 18:59 06:59 Intake Total 300 Balance 300 - Medications Medications: Current Medications Amlodipine Besylate (Norvasc) 10 mg PO DAILY [facility] Last Admin: 12/03/16 10:10 Dose: Not Given Aspirin (Ecotrin) 81 mg PO DAILY [facility] Last Admin: 12/03/16 10:10 Dose: Not Given Calcium Acetate (Phoslo) 667 mg PO TIDCC [facility] Last Admin: 12/03/16 17:04 Dose: 667 mg Clonidine HCl (Catapres) 0.2 mg PO BID [facility] Last Admin: 12/03/16 18:00 Dose: 0.2 mg Escitalopram Oxalate (Lexapro) 10 mg PO DAILY [facility] Last Admin: 12/03/16 10:10 Dose: Not Given Heparin Sodium (Porcine) (Heparin) 5,000 units SC Q12 [facility] Last Admin: 12/03/16 21:23 Dose: 5,000 units Moxifloxacin HCl (Avelox Iv 400mg/250ml Ns) 400 mg in 250 mls @ 167 mls/hr IVPB Q24H [facility] Last Admin: 12/03/16 13:05 Dose: 167 mls/hr Labetalol HCl (Normodyne) 300 mg PO TID [facility] Last Admin: 12/03/16 17:06 Dose: 300 mg Minoxidil (Minoxidil) 5 mg PO BID [facility] Last Admin: 12/03/16 17:05 Dose: 5 mg Morphine Sulfate (Morphine) 4 mg IVP Q4H PRN PRN Reason: Pain, severe (8-10) Last Admin: 12/03/16 21:10 Dose: 4 mg Ondansetron HCl (Zofran Inj) 4 mg IVP Q4 PRN PRN Reason: Nausea/Vomiting Pantoprazole Sodium (Protonix Ec Tab) 40 mg PO DAILY [facility] Last Admin: 12/03/16 10:11 Dose: Not Given - Labs Labs: 12/03/16 07:29 12/03/16 07:29 Attending/Attestation - Attestation I have personally seen and examined this patient.: Yes I have fully participated in the care of the patient.: Yes I have reviewed all pertinent clinical information, including history, physical exam and plan: Yes Notes (Text): 12/03/16 22:49 As above HIDA scan case seen and discussed with the staff and resident diet as ordered continue same
--- NOTE | 2016-12-03 17:29 | CP.PCM.CON ---
History of Present Illness - History of Present Illness History of Present Illness: General surgery consult note consult for Cholecystitis HPI: 73yo female with PMH of ESRD on HD, DM, and recent NSTEMI with PSH of peritoneal dialysis catheter insertion 2 weeks admitted to the med/surgery floor 5 days ago for abdominal pain. Patient states that it began in her epigastrium but now is localized in the LUQ, worse with inspiration. Patient also complains of pain in her right shoulder but denies any nausea, vomiting, diarrhea, constipation, melena, hematochezia, fevers, or chills. Pain is not associated with eating. Patient underwent an abdominal US on admit which showed gall stone in the gallbladder neck, CBD of 6.9mm, no pericholecystic fluid or wall thickening HIDA scan today did not show visualization of the gallbladder Surgery was consulted with the HIDA scan results Review of Systems - Review of Systems All systems: reviewed and no additional remarkable complaints except (as per HPI ) - Constitutional Constitutional: absent: Chills, Fever - Cardiovascular Cardiovascular: absent: Chest Pain, Chest Pain at Rest - Respiratory Respiratory: absent: Cough, Dyspnea on Exertion - Gastrointestinal Gastrointestinal: Abdominal Pain (LUQ>epigastric). absent: Diarrhea, Hematemesis, Hematochezia, Melena, Nausea, Vomiting - Genitourinary Genitourinary: Flank Pain. absent: Change in Urinary Stream, Difficulty Urinating, Dysuria - Musculoskeletal Musculoskeletal: Back Pain (left lower back) Additional comments: right shoulder pain - Integumentary Additional comments: itching sensation in the skin of the left lateral rib cage without rash - Neurological Neurological: absent: Numbness, Focal Weakness, Weakness - Psychiatric Psychiatric: Anxiety Past Patient History - Past Medical History & Family History Past Medical History?: Yes - Past Social History Smoking Status: Current Some Days Smoker Chewing Tobacco Use: No Cigar Use: No Alcohol: Occasional Drugs: Prescription medications Home Situation {Lives}: With Family - CARDIAC Hx Congestive Heart Failure: Yes Hx Hypertension: Yes - PULMONARY Hx Respiratory Disorders: No - NEUROLOGICAL Hx Neurological Disorder: No - HEENT Hx HEENT Problems: No Other/Comment: eyeglasses for reading - RENAL Hx Chronic Kidney Disease: Yes Hx Dialysis: Yes Type of Dialysis Access: permacath, peritoneal Date of Last Dialysis Treatment: 11/28/16 Hx Kidney Stones: Yes (8 years ago) - ENDOCRINE/METABOLIC Hx Endocrine Disorders: No - HEMATOLOGICAL/ONCOLOGICAL Hx Anemia: Yes - INTEGUMENTARY Hx Dermatological Problems: No - MUSCULOSKELETAL/RHEUMATOLOGICAL Hx Falls: No - GASTROINTESTINAL Hx Gastrointestinal Disorders: No - GENITOURINARY/GYNECOLOGICAL Hx Genitourinary Disorders: No - PSYCHIATRIC Hx Anxiety: Yes Hx Depression: Yes Hx Substance Use: No - SURGICAL HISTORY Hx Surgeries: Yes Other/Comment: Insertion of peritoneal catheter /tenchoff cath - ANESTHESIA Hx Anesthesia: Yes Hx Anesthesia Reactions: No Hx Malignant Hyperthermia: No Meds Allergies/Adverse Reactions: Allergies Allergy/AdvReac Type Severity Reaction Status Date / Time No Known Allergies Allergy Verified 11/29/16 11:49 - Medications Medications: Current Medications Amlodipine Besylate (Norvasc) 10 mg PO DAILY [facility] Last Admin: 12/03/16 10:10 Dose: Not Given Aspirin (Ecotrin) 81 mg PO DAILY [facility] Last Admin: 12/03/16 10:10 Dose: Not Given Calcium Acetate (Phoslo) 667 mg PO TIDCC [facility] Last Admin: 12/03/16 17:04 Dose: 667 mg Clonidine HCl (Catapres) 0.2 mg PO BID [facility] Escitalopram Oxalate (Lexapro) 10 mg PO DAILY [facility] Last Admin: 12/03/16 10:10 Dose: Not Given Heparin Sodium (Porcine) (Heparin) 5,000 units SC Q12 [facility] Last Admin: 12/03/16 10:10 Dose: Not Given Moxifloxacin HCl (Avelox Iv 400mg/250ml Ns) 400 mg in 250 mls @ 167 mls/hr IVPB Q24H [facility] Last Admin: 12/03/16 13:05 Dose: 167 mls/hr Labetalol HCl (Normodyne) 300 mg PO TID [facility] Last Admin: 12/03/16 17:06 Dose: 300 mg Minoxidil (Minoxidil) 5 mg PO BID [facility] Last Admin: 12/03/16 17:05 Dose: 5 mg Morphine Sulfate (Morphine) 4 mg IVP Q4H PRN PRN Reason: Pain, severe (8-10) Last Admin: 12/03/16 17:00 Dose: 4 mg Ondansetron HCl (Zofran Inj) 4 mg IVP Q4 PRN PRN Reason: Nausea/Vomiting Pantoprazole Sodium (Protonix Ec Tab) 40 mg PO DAILY [facility] Last Admin: 12/03/16 10:11 Dose: Not Given Physical Exam - Constitutional Appears: Well, Non-toxic, No Acute Distress - Head Exam Head Exam: ATRAUMATIC, NORMOCEPHALIC - Eye Exam Eye Exam: Normal appearance. absent: Conjunctival injection, Scleral icterus - ENT Exam ENT Exam: Mucous Membranes Moist, Normal Oropharynx - Respiratory Exam Respiratory Exam: NORMAL BREATHING PATTERN. absent: Accessory Muscle Use, Respiratory Distress - Cardiovascular Exam Cardiovascular Exam: RRR - GI/Abdominal Exam GI & Abdominal Exam: Soft, Tenderness (LUQ). absent: Distended, Rebound Additional comments: negative sharma's - Extremities Exam Extremities exam: Positive for: pedal pulses present. Negative for: calf tenderness, pedal edema - Back Exam Back exam: paraspinal tenderness. absent: CVA tenderness (L), CVA tenderness (R ), vertebral tenderness - Neurological Exam Neurological exam: Alert, Oriented x3 - Skin Skin Exam: Dry, Intact, Normal Color, Warm Additional comments: no rash Results - Vital Signs Recent Vital Signs: Last Vital Signs Temp 98.4 F 12/03/16 14:00 Pulse 65 12/03/16 14:00 Resp 20 12/03/16 14:00 BP 128/68 12/03/16 14:00 Pulse Ox 97 12/03/16 14:00 - Labs Result Diagrams: 12/03/16 07:29 12/03/16 07:29 Labs: Laboratory Results - last 24 hr 12/03/16 12/03/16 07:29 07:29 WBC 9.1 RBC 4.32 Hgb 11.1 Hct 34.3 MCV 79.4 L MCH 25.7 L MCHC 32.3 L RDW 24.8 H Plt Count 296 MPV 7.8 Neut % (Auto) 78.3 H Lymph % (Auto) 8.9 L Bland % (Auto) 9.2 Eos % (Auto) 3.1 Baso % (Auto) 0.5 Neut # 7.1 H Lymph # 0.8 L Bland # 0.8 Eos # 0.3 Baso # 0.0 Neutrophils % (Manual) 86 H Lymphocytes % (Manual) 7 L Monocytes % (Manual) 4 Eosinophils % (Manual) 3 Platelet Estimate Normal Anisocytosis (manual) Moderate Sodium 137 Potassium 3.8 Chloride 94 L Carbon Dioxide 27 Anion Gap 20 BUN 15 Creatinine 5.6 H Est GFR ( Amer) 10 Est GFR (Non-Af Amer) 9 Random Glucose 107 H Calcium 9.2 Magnesium 1.9 Total Bilirubin 0.6 AST 14 ALT 22 Alkaline Phosphatase 96 Total Protein 6.6 Albumin 3.9 Globulin 2.7 Albumin/Globulin Ratio 1.4 Assessment & Plan - Assessment and Plan (Free Text) Assessment: 36F with symptomatic cholelithiasis, recent PD catheter insertion 2 weeks ago HIDA: no visualization of the gallbladder US abdomen: gallstone in the neck of the bladder with no sign of cholecystitis WBC and LFT's wnl PLAN: -OR on Thursday for laparoscopic cholecystectomy -trend CBC/CMP -analgesia, anti-emetics -DVT and GI ppx -serial abdominal exams -Do not utilize the PD catheter for dialysis Discussed with Dr. Loretta Key, PGY2
[2016-12-04] MEDS: Morphine 4 MG/ML VIAL IVP PRN ×6 (01:00→22:32)
--- NOTE | 2016-12-04 08:34 | CP.PCM.PN ---
Subjective - Date & Time of Evaluation Date of Evaluation: 12/04/16 Time of Evaluation: 08:32 - Subjective Subjective: Surgery on board- lap choley planned likely for tomorrow Stable dialysis 12/03 Only c/o abdominal pain, pruritis and nausea No SOB, CPs, f. chills, HAs, diarrhea Chemistries acceptable Objective - Vital Signs/Intake and Output Vital Signs (last 24 hours): Temp Pulse Resp BP Pulse Ox 98 F 71 20 151/78 H 93 L 12/04/16 08:30 12/04/16 08:30 12/04/16 08:30 12/04/16 08:30 12/04/16 08:30 Intake and Output: 12/04/16 12/04/16 06:59 18:59 Intake Total 300 Balance 300 - Medications Medications: Current Medications Amlodipine Besylate (Norvasc) 10 mg PO DAILY [facility] Last Admin: 12/03/16 10:10 Dose: Not Given Aspirin (Ecotrin) 81 mg PO DAILY [facility] Last Admin: 12/03/16 10:10 Dose: Not Given Calcium Acetate (Phoslo) 667 mg PO TIDCC [facility] Last Admin: 12/04/16 07:44 Dose: Not Given Clonidine HCl (Catapres) 0.2 mg PO BID [facility] Last Admin: 12/03/16 18:00 Dose: 0.2 mg Escitalopram Oxalate (Lexapro) 10 mg PO DAILY [facility] Last Admin: 12/03/16 10:10 Dose: Not Given Heparin Sodium (Porcine) (Heparin) 5,000 units SC Q12 [facility] Last Admin: 12/03/16 21:23 Dose: 5,000 units Moxifloxacin HCl (Avelox Iv 400mg/250ml Ns) 400 mg in 250 mls @ 167 mls/hr IVPB Q24H [facility] Last Admin: 12/03/16 13:05 Dose: 167 mls/hr Labetalol HCl (Normodyne) 300 mg PO TID [facility] Last Admin: 12/03/16 17:06 Dose: 300 mg Minoxidil (Minoxidil) 5 mg PO BID [facility] Last Admin: 12/03/16 17:05 Dose: 5 mg Morphine Sulfate (Morphine) 4 mg IVP Q4H PRN PRN Reason: Pain, severe (8-10) Last Admin: 12/04/16 06:20 Dose: 4 mg Ondansetron HCl (Zofran Inj) 4 mg IVP Q4 PRN PRN Reason: Nausea/Vomiting Pantoprazole Sodium (Protonix Ec Tab) 40 mg PO DAILY [facility] Last Admin: 12/03/16 10:11 Dose: Not Given - Labs Labs: 12/03/16 07:29 12/03/16 07:29 - Constitutional Appears: No Acute Distress, Chronically Ill - Head Exam Head Exam: ATRAUMATIC, NORMAL INSPECTION - Eye Exam Eye Exam: EOMI, Normal appearance - Neck Exam Neck Exam: Normal Inspection. absent: Tenderness - Respiratory Exam Respiratory Exam: Clear to Ausculation Bilateral, NORMAL BREATHING PATTERN - Cardiovascular Exam Cardiovascular Exam: REGULAR RHYTHM, +S1 - GI/Abdominal Exam GI & Abdominal Exam: Soft, Tenderness - Extremities Exam Extremities Exam: Normal Inspection. absent: Tenderness - Neurological Exam Neurological Exam: Alert, CN II-XII Intact - Skin Skin Exam: Dry, Warm Assessment and Plan (1) PUD (peptic ulcer disease) Status: Acute (2) Dependency on pain medication Status: Acute (3) HTN (hypertension) Status: Acute (4) ESRD (end stage renal disease) Status: Acute (5) Elevated lipase Status: Acute (6) Acute cholecystitis Status: Acute - Assessment and Plan (Free Text) Plan: Dialysis in AM Await marc Same meds IV ABs Pain management
[2016-12-04 08:45] LABS: BASO # 0.1 K/uL (0.0-0.2); BASO % 0.8 % (0.0-2.0); EOS # 0.4 K/uL (0.0-0.7); HEMATOCRIT 34.5 % (34.0-47.0); MEAN CORPUSCULAR HEMOGLOBIN 25.5 pg (27.0-31.0); MEAN CORPUSCULAR HGB CONC 31.9 g/dL (33.0-37.0); MEAN PLATELET VOLUME 7.5 fL (7.2-11.7); MONO # 0.6 K/uL (0.0-0.8); MONO % 9.4 % (0.0-10.0); RED CELL DISTRIBUTION WIDTH 24.1 % (11.5-14.5); WHITE BLOOD COUNT 6.8 K/uL (4.8-10.8)
[2016-12-04 09:00] LABS: POTASSIUM 3.4 mmol/L (3.6-5.2)
[2016-12-04 09:02] LABS: ALB/GLOB RATIO 1.3 (1.0-2.1); BILIRUBIN,TOTAL 0.5 mg/dL (0.2-1.3); TOTAL PROTEIN 6.3 g/dL (6.3-8.3)
[2016-12-04 09:03] LABS: CALCIUM 8.8 mg/dl (8.6-10.4); MAGNESIUM 1.9 mg/dL (1.6-2.3)
[2016-12-04] MEDS: Potassium Chloride 20 mEq/15 ml LIQ UD PO SCH ×2 (10:18→11:49)
[2016-12-04] MEDS: Pantoprazole 40 mg EC Tab PO SCH (10:18)
[2016-12-04] MEDS: Labetalol Hydrochloride 300 mg Tab PO SCH ×3 (10:41→18:15)
--- NOTE | 2016-12-04 10:48 | CP.PCM.PN ---
Subjective - Date & Time of Evaluation Date of Evaluation: 12/04/16 Time of Evaluation: 09:10 - Subjective Subjective: PGY3 progress note for Dr. Orr Pt is seen and examined at bedside. No acute events overnight. Patient says her epigastric pain has completely resolved but she has very bad left flank pain. Patient denies having any N/V/D/C. Patient is tolerating liquid diet. Denies having any CP, SOB, coughing. Objective - Vital Signs/Intake and Output Vital Signs (last 24 hours): Temp Pulse Resp BP Pulse Ox 98 F 71 20 151/78 H 93 L 12/04/16 08:30 12/04/16 08:30 12/04/16 08:30 12/04/16 08:30 12/04/16 08:30 Intake and Output: 12/04/16 12/04/16 06:59 18:59 Intake Total 300 Balance 300 - Medications Medications: Current Medications Amlodipine Besylate (Norvasc) 10 mg PO DAILY [facility] Last Admin: 12/04/16 10:27 Dose: 10 mg Aspirin (Ecotrin) 81 mg PO DAILY [facility] Last Admin: 12/04/16 10:19 Dose: 81 mg Calcium Acetate (Phoslo) 667 mg PO TIDCC [facility] Last Admin: 12/04/16 10:19 Dose: 667 mg Clonidine HCl (Catapres) 0.2 mg PO BID [facility] Last Admin: 12/04/16 10:19 Dose: 0.2 mg Escitalopram Oxalate (Lexapro) 10 mg PO DAILY [facility] Last Admin: 12/04/16 10:18 Dose: 10 mg Heparin Sodium (Porcine) (Heparin) 5,000 units SC Q12 [facility] Last Admin: 12/04/16 10:19 Dose: 5,000 units Moxifloxacin HCl (Avelox Iv 400mg/250ml Ns) 400 mg in 250 mls @ 167 mls/hr IVPB Q24H [facility] Last Admin: 12/03/16 13:05 Dose: 167 mls/hr Labetalol HCl (Normodyne) 300 mg PO TID [facility] Last Admin: 12/03/16 17:06 Dose: 300 mg Minoxidil (Minoxidil) 5 mg PO BID [facility] Last Admin: 12/03/16 17:05 Dose: 5 mg Morphine Sulfate (Morphine) 4 mg IVP Q4H PRN PRN Reason: Pain, severe (8-10) Last Admin: 12/04/16 10:27 Dose: 4 mg Ondansetron HCl (Zofran Inj) 4 mg IVP Q4 PRN PRN Reason: Nausea/Vomiting Pantoprazole Sodium (Protonix Ec Tab) 40 mg PO DAILY [facility] Last Admin: 12/04/16 10:18 Dose: 40 mg Potassium Chloride (Potassium Chloride Oral Soln) 20 meq PO Q2H [facility] Stop: 12/04/16 12:01 Last Admin: 12/04/16 10:18 Dose: 20 meq - Labs Labs: 12/04/16 08:32 12/04/16 08:32 - Constitutional Appears: Non-toxic, No Acute Distress - Head Exam Head Exam: NORMAL INSPECTION - Eye Exam Eye Exam: EOMI - ENT Exam ENT Exam: Mucous Membranes Moist - Respiratory Exam Respiratory Exam: Clear to Ausculation Bilateral, NORMAL BREATHING PATTERN. absent: Rales, Rhonchi, Wheezes - Cardiovascular Exam Cardiovascular Exam: REGULAR RHYTHM, +S1, +S2, Murmur. absent: Gallop, Rubs - GI/Abdominal Exam GI & Abdominal Exam: Soft, Normal Bowel Sounds. absent: Tenderness - Extremities Exam Extremities Exam: absent: Pedal Edema - Back Exam Additional comments: right flank tenderness - Neurological Exam Neurological Exam: Alert, Awake, Oriented x3 - Psychiatric Exam Psychiatric exam: Normal Affect, Normal Mood - Skin Skin Exam: Normal Color, Warm Assessment and Plan - Assessment and Plan (Free Text) Assessment: (1) Sympomatic Cholelithiasis - Afebrile and normal WBC count - GI, Dr. Cruz is consulted, signed off as there is " no evidence of choledocholithiasis" per Dr. Morfin - Surgery, Dr. Burgos is consulted - HIDA scan 12/03/16 showed cystic duct obstruction - CT abd/pelvis 12/01/16 showed dilated CBD at 7 mm and mild gallbladder wall thickening - Abd US done on 11/30 showed cholelithiasis. - Abd x ray showed no obstruction - Patient also underwent EGD procedure on last admission with Dr. Cruz., which showed normal esophagus, 1 cm hialtal hernia, gastritis. Biopsy showed mild chronic inflammation, negative for H pylori . - Continue Avelox 400mg IVPB daily - day 4 - Patient for OR on Thursday for cholecystectomy with Dr. Burgos (2) Nephrolithiasis Urology consult placed- Dr. Willis Murphy - for ongoing L flank pain and presence of nephrolithiasis. Pending recs (3) HTN (hypertension) Clonidine 0.1 mg PO BID Labetalol 300mg PO TID Minoxidil 5mg PO BID (4) ESRD (end stage renal disease) Patient started on HD last admission 11/08/16 after she was found to have CKD and protenuria. Likely secondary to uncontrolled HTN. Patient with peritoneal dialysis cath in place (still not working) by Dr. Burgos. HD through R IJ permacath. Nephro consult placed- Dr. Jordan- help appreciated Continue HD M, W, F Avoid narcotics as per nephro (5) Systolic Murmur ECHO 11/09/16 - EF normal, moderate increased wall thickness, grade III reversibe restrictive diastolic dysfunction; left atrium volume moderately increased; consider restrictive cardiomyopathy (please see full report) (6) Prophylactic measure Heparin 5000 SC Q12H Protonix 40 mg PO daily Orders and management per Dr. Orr
--- NOTE | 2016-12-04 12:47 | PCM.URO ---
Urology Progress Note - Objective Lab Results Last 24 Hours: Laboratory Results - last 24 hr 12/04/16 12/04/16 12/04/16 06:28 08:32 08:32 WBC 6.8 RBC 4.32 Hgb 11.0 Hct 34.5 MCV 80.0 L MCH 25.5 L MCHC 31.9 L RDW 24.1 H Plt Count 285 MPV 7.5 Neut % (Auto) 68.8 Lymph % (Auto) 15.0 L Dawes % (Auto) 9.4 Eos % (Auto) 6.0 H Baso % (Auto) 0.8 Neut # 4.7 Lymph # 1.0 Dawes # 0.6 Eos # 0.4 Baso # 0.1 Sodium 139 Potassium 3.4 L Chloride 96 L Carbon Dioxide 28 Anion Gap 19 BUN 10 Creatinine 4.0 H Est GFR ( Amer) 15 Est GFR (Non-Af Amer) 13 Random Glucose 87 Calcium 8.8 Magnesium 1.9 Total Bilirubin 0.5 AST 14 ALT 22 Alkaline Phosphatase 85 Total Protein 6.3 Albumin 3.5 Globulin 2.8 Albumin/Globulin Ratio 1.3 Urine HCG, Qual Negative Intake & Output: Intake & Output 12/03/16 12/04/16 12/04/16 18:59 06:59 18:59 Intake Total 300 Balance 300 Intake: Oral 300 Other: # Voids Urine, Voided 2 # Bowel Movements 0 Vital Signs: Vital Signs - 24 hr 12/03/16 12/04/16 12/04/16 14:00 00:30 08:30 Temperature 98.4 F 98.4 F 98 F Pulse Rate 65 61 71 Respiratory 20 20 Rate Blood Pressure 128/68 130/74 151/78 H O2 Sat by Pulse 97 94 L 93 L Oximetry
--- NOTE | 2016-12-04 12:52 | CP.PCM.PN ---
Subjective - Date & Time of Evaluation Date of Evaluation: 12/04/16 Time of Evaluation: 07:40 - Subjective Subjective: clinically same Objective - Vital Signs/Intake and Output Vital Signs (last 24 hours): Temp Pulse Resp BP Pulse Ox 98 F 71 20 151/78 H 93 L 12/04/16 08:30 12/04/16 08:30 12/04/16 08:30 12/04/16 08:30 12/04/16 08:30 Intake and Output: 12/04/16 12/04/16 06:59 18:59 Intake Total 300 Balance 300 - Medications Medications: Current Medications Amlodipine Besylate (Norvasc) 10 mg PO DAILY [facility] Last Admin: 12/04/16 10:27 Dose: 10 mg Aspirin (Ecotrin) 81 mg PO DAILY [facility] Last Admin: 12/04/16 10:19 Dose: 81 mg Calcium Acetate (Phoslo) 667 mg PO TIDCC [facility] Last Admin: 12/04/16 11:47 Dose: 667 mg Clonidine HCl (Catapres) 0.2 mg PO BID [facility] Last Admin: 12/04/16 10:19 Dose: 0.2 mg Escitalopram Oxalate (Lexapro) 10 mg PO DAILY [facility] Last Admin: 12/04/16 10:18 Dose: 10 mg Heparin Sodium (Porcine) (Heparin) 5,000 units SC Q12 [facility] Last Admin: 12/04/16 10:19 Dose: 5,000 units Moxifloxacin HCl (Avelox Iv 400mg/250ml Ns) 400 mg in 250 mls @ 167 mls/hr IVPB Q24H [facility] Last Admin: 12/03/16 13:05 Dose: 167 mls/hr Labetalol HCl (Normodyne) 300 mg PO TID [facility] Last Admin: 12/04/16 10:41 Dose: 300 mg Minoxidil (Minoxidil) 5 mg PO BID [facility] Last Admin: 12/04/16 10:41 Dose: 5 mg Morphine Sulfate (Morphine) 4 mg IVP Q4H PRN PRN Reason: Pain, severe (8-10) Last Admin: 12/04/16 10:27 Dose: 4 mg Ondansetron HCl (Zofran Inj) 4 mg IVP Q4 PRN PRN Reason: Nausea/Vomiting Pantoprazole Sodium (Protonix Ec Tab) 40 mg PO DAILY [facility] Last Admin: 12/04/16 10:18 Dose: 40 mg - Labs Labs: 12/04/16 08:32 12/04/16 08:32 - Constitutional Appears: Well - Head Exam Head Exam: ATRAUMATIC, NORMAL INSPECTION, NORMOCEPHALIC - Eye Exam Eye Exam: EOMI, Normal appearance, PERRL Pupil Exam: NORMAL ACCOMODATION, PERRL - ENT Exam ENT Exam: Mucous Membranes Moist, Normal Exam - Neck Exam Neck Exam: Full ROM, Normal Inspection. absent: Lymphadenopathy - Respiratory Exam Respiratory Exam: Decreased Breath Sounds - Cardiovascular Exam Cardiovascular Exam: REGULAR RHYTHM, +S1, +S2 - GI/Abdominal Exam GI & Abdominal Exam: Soft, Diminished Bowel Sounds - Rectal Exam Rectal Exam: Deferred Assessment and Plan (1) AMPARO (acute kidney injury) Status: Acute (2) Abdominal pain Status: Acute (3) Acute cholecystitis Status: Acute (4) Anemia Status: Acute (5) CHF (congestive heart failure) Status: Acute (6) CKD (chronic kidney disease) stage 5, GFR less than 15 ml/min Status: Acute (7) CKD stage 5 secondary to hypertension Status: Acute (8) Chest pain Status: Acute (9) Dependency on pain medication Status: Acute (10) ESRD (end stage renal disease) Status: Acute (11) ESRD (end stage renal disease) Status: Acute (12) ESRD (end stage renal disease) Status: Acute (13) Elevated lipase Status: Acute (14) End stage renal disease Status: Acute (15) HTN (hypertension) Status: Acute (16) Hypertension Status: Acute (17) Hypertension Status: Acute (18) Hypertensive chronic kidney disease with stage 5 chronic kidney disease or end stage renal disease Status: Acute (19) Hypertensive emergency Status: Acute (20) Hypertensive urgency Status: Acute (21) Hypokalemia Status: Acute (22) Hypokalemia Status: Acute (23) Hypokalemia Status: Acute (24) Hypoxia Status: Acute (25) Intractable abdominal pain Status: Acute (26) NSTEMI (non-ST elevated myocardial infarction) Status: Acute (27) Nausea Status: Acute (28) Nausea & vomiting Status: Acute (29) Nephrolithiasis Status: Acute (30) PUD (peptic ulcer disease) Status: Acute (31) Pneumonia Status: Acute (32) Prophylactic measure Status: Acute (33) Prophylactic measure Status: Acute (34) Proteinuria Status: Acute (35) Renal failure Status: Acute (36) Renal insufficiency Status: Acute (37) Uncontrolled hypertension Status: Acute (38) Vomiting Status: Acute - Assessment and Plan (Free Text) Plan: Febrile Patient feeling better No abdominal pain Continue as ordered Avelox Heparin Blood pressure meds Zofran Protonix GI on board Labs next a.m.
[2016-12-04] MEDS: Moxifloxacin IV 400mg/250ml NS 400 MG/250 ML BAG IVPB SCH (13:59)
--- NOTE | 2016-12-04 16:42 | RAD ---
HISTORY: pre-op eval COMPARISON: Chest x-ray performed 11/29/16 TECHNIQUE: Chest, one view. FINDINGS: Right-sided dialysis catheter with distal tips at the SVC. LUNGS: Bibasilar atelectasis/ infiltrates and/or small effusions. No definite pneumothorax. Please note that chest x-ray has limited sensitivity for the detection of pulmonary masses. CARDIOVASCULAR: Cardiomegaly. OSSEOUS STRUCTURES: Degenerative changes. VISUALIZED UPPER ABDOMEN: Unremarkable. OTHER FINDINGS: None. IMPRESSION: Right-sided dialysis catheter. Cardiomegaly. Bibasilar atelectasis/ infiltrates and/or small effusions.
[2016-12-05] MEDS: Morphine 4 MG/ML VIAL IVP PRN ×2 (02:40→06:40)
[2016-12-05 08:24] LABS: BASO # 0.1 K/uL (0.0-0.2); EOS # 0.5 K/uL (0.0-0.7); EOS % 5.8 % (0.0-4.0); HEMATOCRIT 33.1 % (34.0-47.0); LYMPH # 1.3 K/uL (1.0-4.3); LYMPH % 15.8 % (20.0-40.0); MEAN CELL VOLUME 80.5 fL (81.0-99.0); MEAN CORPUSCULAR HEMOGLOBIN 25.8 pg (27.0-31.0); MEAN PLATELET VOLUME 7.6 fL (7.2-11.7); MONO # 0.6 K/uL (0.0-0.8); MONO % 7.4 % (0.0-10.0); RED CELL DISTRIBUTION WIDTH 24.6 % (11.5-14.5); WHITE BLOOD COUNT 8.4 K/uL (4.8-10.8)
[2016-12-05 08:37] LABS: POTASSIUM 4.1 mmol/L (3.6-5.2)
[2016-12-05 08:39] LABS: ALB/GLOB RATIO 1.3 (1.0-2.1); BILIRUBIN,TOTAL 0.7 mg/dL (0.2-1.3); TOTAL PROTEIN 6.1 g/dL (6.3-8.3)
[2016-12-05 08:40] LABS: CALCIUM 8.9 mg/dl (8.6-10.4); MAGNESIUM 1.9 mg/dL (1.6-2.3)
[2016-12-05] MEDS: Labetalol Hydrochloride 300 mg Tab PO SCH ×3 (08:40→17:26)
--- NOTE | 2016-12-05 10:43 | CP.PCM.PN ---
Subjective - Date & Time of Evaluation Date of Evaluation: 12/05/16 Time of Evaluation: 10:35 - Subjective Subjective: PGY2 progress note for Dr. Orr Pt is seen and examined at bedside. No acute events overnight. Patient is scheduled for OR for garo with Dr. Burgos today. Patient was made NPO past midnight for procedure. Patient still c/o left sided abd pain. Denies having any RQ abd pain. Denies having any N/V/D/C, F/C, CP, SOB. 12 point ROS are negative except for the above mentioned. Objective - Vital Signs/Intake and Output Vital Signs (last 24 hours): Temp Pulse Resp BP Pulse Ox 97.8 F 67 18 108/66 100 12/05/16 08:45 12/05/16 08:45 12/05/16 08:45 12/05/16 09:45 12/05/16 10:28 Intake and Output: 12/05/16 12/05/16 06:59 18:59 Intake Total 330 Balance 330 - Medications Medications: Current Medications Amlodipine Besylate (Norvasc) 10 mg PO DAILY [facility] Last Admin: 12/04/16 10:27 Dose: 10 mg Aspirin (Ecotrin) 81 mg PO DAILY [facility] Last Admin: 12/04/16 10:19 Dose: 81 mg Calcium Acetate (Phoslo) 667 mg PO TIDCC [facility] Last Admin: 12/04/16 17:00 Dose: 667 mg Clonidine HCl (Catapres) 0.2 mg PO BID [facility] Last Admin: 12/04/16 18:15 Dose: 0.2 mg Escitalopram Oxalate (Lexapro) 10 mg PO DAILY [facility] Last Admin: 12/04/16 10:18 Dose: 10 mg Heparin Sodium (Porcine) (Heparin) 5,000 units SC Q12 [facility] Last Admin: 12/04/16 21:15 Dose: 5,000 units Moxifloxacin HCl (Avelox Iv 400mg/250ml Ns) 400 mg in 250 mls @ 167 mls/hr IVPB Q24H [facility] Last Admin: 12/04/16 13:59 Dose: 167 mls/hr Labetalol HCl (Normodyne) 300 mg PO TID [facility] Last Admin: 12/04/16 18:15 Dose: 300 mg Minoxidil (Minoxidil) 5 mg PO BID [facility] Last Admin: 12/04/16 18:15 Dose: 5 mg Morphine Sulfate (Morphine) 4 mg IVP Q4H PRN PRN Reason: Pain, severe (8-10) Last Admin: 12/05/16 06:40 Dose: 4 mg Ondansetron HCl (Zofran Inj) 4 mg IVP Q4 PRN PRN Reason: Nausea/Vomiting Pantoprazole Sodium (Protonix Ec Tab) 40 mg PO DAILY [facility] Last Admin: 12/04/16 10:18 Dose: 40 mg - Labs Labs: 12/05/16 08:10 12/05/16 08:10 - Constitutional Appears: Non-toxic, No Acute Distress - Head Exam Head Exam: ATRAUMATIC - Eye Exam Eye Exam: EOMI - ENT Exam ENT Exam: Mucous Membranes Moist - Respiratory Exam Respiratory Exam: Clear to Ausculation Bilateral. absent: Accessory Muscle Use , Rales, Rhonchi, Wheezes, Respiratory Distress - Cardiovascular Exam Cardiovascular Exam: REGULAR RHYTHM, +S1, +S2. absent: Gallop, Rubs, Murmur - GI/Abdominal Exam GI & Abdominal Exam: Soft, Normal Bowel Sounds. absent: Firm, Guarding, Rigid, Tenderness, Organomegaly - Extremities Exam Extremities Exam: absent: Pedal Edema, Tenderness - Neurological Exam Neurological Exam: Alert, Awake, Oriented x3 - Psychiatric Exam Psychiatric exam: Normal Affect, Normal Mood - Skin Skin Exam: Dry, Intact, Normal Color, Warm Assessment and Plan - Assessment and Plan (Free Text) Assessment: (1) Sympomatic Cholelithiasis - Patient scheduled for cholecystectomy today with Dr. Burgos - GI, Dr. Cruz is consulted. As per GI, no evidence of choledocholithiasis and GI has signed off - Surgery, Dr. Burgos is consulted - HIDA scan 12/03/16 showed cystic duct obstruction - CT abd/pelvis 12/01/16 showed dilated CBD at 7 mm and mild gallbladder wall thickening - Abd US done on 11/30 showed cholelithiasis. - Abd x ray showed no obstruction - Patient also underwent EGD procedure on last admission with Dr. Cruz which showed normal esophagus, 1 cm hialtal hernia, gastritis. Biopsy showed mild chronic inflammation, negative for H pylori . - Continue Avelox 400mg IVPB daily - day 5 (2) Nephrolithiasis Urology consult placed- Dr. Willis Murphy - for ongoing L flank pain and presence of nephrolithiasis. Pending recs (3) HTN (hypertension) Will continue to monitor vital sigsn Clonidine 0.1 mg PO BID Labetalol 300mg PO TID Minoxidil 5mg PO BID (4) ESRD (end stage renal disease) Patient started on HD last admission 11/08/16 after she was found to have CKD and protenuria. Likely secondary to uncontrolled HTN. Patient with peritoneal dialysis cath in place (still not working) by Dr. Burgos. HD through R IJ permacath. Nephro consult placed- Dr. Jordan- help appreciated Continue HD M, W, F Avoid narcotics as per nephro (5) Systolic Murmur ECHO 11/09/16 - EF normal, moderate increased wall thickness, grade III reversible restrictive diastolic dysfunction; left atrium volume moderately increased; consider restrictive cardiomyopathy (please see full report) (6) Prophylactic measure Heparin 5000 SC Q12H Protonix 40 mg PO daily Orders and management per Dr. Orr
[2016-12-05] MEDS: Pantoprazole 40 mg EC Tab PO SCH (11:13)
[2016-12-05] MEDS: Moxifloxacin IV 400mg/250ml NS 400 MG/250 ML BAG IVPB SCH (12:20)
[2016-12-05] MEDS ORDERED: Iohexol 240 (50 ml) ONE (12:41)
[2016-12-05] MEDS ORDERED: Sodium Chloride 0.9% 500 ML IV ONE ×2 (12:45→14:00)
[2016-12-05] MEDS ORDERED: Propofol 10 mg/ml Inj (20 ML) ONE ×2 (12:59→14:45)
[2016-12-05] MEDS ORDERED: Succinylcholine Chloride 20 mg/ml Syr (5 ml) IV ONE (13:00)
[2016-12-05] MEDS ORDERED: Lidocaine Hydrochloride 5 ML INJ ONE (13:23)
--- NOTE | 2016-12-05 14:19 | CP.PCM.PN ---
Subjective - Date & Time of Evaluation Date of Evaluation: 12/05/16 Time of Evaluation: 14:16 - Subjective Subjective: Undergoing lap-choley today Seen at dialysis earlier- UF 1300ml Tolerating dialysis course HTN has been controlled Labs acceptable Same abdominal pains; no f, c, diarrhea, HAs Objective - Vital Signs/Intake and Output Vital Signs (last 24 hours): Temp Pulse Resp BP Pulse Ox 98.3 F 98 H 18 130/78 95 12/05/16 11:45 12/05/16 12:08 12/05/16 11:45 12/05/16 12:08 12/05/16 11:45 Intake and Output: 12/05/16 12/05/16 06:59 18:59 Intake Total 330 Balance 330 - Medications Medications: Current Medications Amlodipine Besylate (Norvasc) 10 mg PO DAILY [facility] Last Admin: 12/05/16 11:12 Dose: Not Given Aspirin (Ecotrin) 81 mg PO DAILY [facility] Last Admin: 12/04/16 10:19 Dose: 81 mg Calcium Acetate (Phoslo) 667 mg PO TIDCC [facility] Last Admin: 12/05/16 12:36 Dose: Not Given Clonidine HCl (Catapres) 0.2 mg PO BID [facility] Last Admin: 12/05/16 11:11 Dose: Not Given Escitalopram Oxalate (Lexapro) 10 mg PO DAILY [facility] Last Admin: 12/05/16 11:11 Dose: Not Given Heparin Sodium (Porcine) (Heparin) 5,000 units SC Q12 [facility] Last Admin: 12/04/16 21:15 Dose: 5,000 units Moxifloxacin HCl (Avelox Iv 400mg/250ml Ns) 400 mg in 250 mls @ 167 mls/hr IVPB Q24H [facility] Last Admin: 12/05/16 12:20 Dose: 167 mls/hr Labetalol HCl (Normodyne) 300 mg PO TID [facility] Last Admin: 12/05/16 11:12 Dose: Not Given Minoxidil (Minoxidil) 5 mg PO BID [facility] Last Admin: 12/05/16 11:11 Dose: Not Given Morphine Sulfate (Morphine) 4 mg IVP Q4H PRN PRN Reason: Pain, severe (8-10) Last Admin: 12/05/16 06:40 Dose: 4 mg Ondansetron HCl (Zofran Inj) 4 mg IVP Q4 PRN PRN Reason: Nausea/Vomiting Pantoprazole Sodium (Protonix Ec Tab) 40 mg PO DAILY [facility] Last Admin: 12/05/16 11:13 Dose: Not Given - Labs Labs: 12/05/16 08:10 12/05/16 08:10 - Constitutional Appears: No Acute Distress, Chronically Ill - Head Exam Head Exam: ATRAUMATIC, NORMAL INSPECTION - Eye Exam Eye Exam: EOMI, Normal appearance - Neck Exam Neck Exam: Normal Inspection. absent: Tenderness - Respiratory Exam Respiratory Exam: Clear to Ausculation Bilateral, NORMAL BREATHING PATTERN - Cardiovascular Exam Cardiovascular Exam: REGULAR RHYTHM, +S1 - GI/Abdominal Exam GI & Abdominal Exam: Soft, Tenderness - Extremities Exam Extremities Exam: Normal Inspection. absent: Tenderness - Neurological Exam Neurological Exam: Alert - Skin Skin Exam: Dry, Warm Assessment and Plan (1) PUD (peptic ulcer disease) Status: Acute (2) Dependency on pain medication Status: Acute (3) HTN (hypertension) Status: Acute (4) ESRD (end stage renal disease) Status: Acute (5) Elevated lipase Status: Acute (6) Acute cholecystitis Status: Acute - Assessment and Plan (Free Text) Plan: follow up usman cruz Next dialysis 12/07 IV ABs monitor BP
--- NOTE | 2016-12-05 14:57 | PCM.SURG1 ---
Surgeon's Initial Post Op Note - Surgeon's Notes Surgeon: Mina Burgos MD Associate Programmer: Machelle Downs PGY1; Diego Moraes OMS3 Type of Anesthesia: General Endo Pre-Operative Diagnosis: Acute Cholecystitis Operative Findings: See op report Post-Operative Diagnosis: Acute Cholecystitis Operation Performed: Laparoscopic Cholecystectomy Specimen/Specimens Removed: Gallbladder Estimated Blood Loss: EBL {In ML}: 20 Blood Products Given: N/A Drains Used: No Drains Post-Op Condition: Good Date of Surgery/Procedure: 12/05/16 Time of Surgery/Procedure: 14:56
--- NOTE | 2016-12-05 15:16 | CP.PCM.PN ---
Subjective - Date & Time of Evaluation Date of Evaluation: 12/05/16 Time of Evaluation: 07:40 - Subjective Subjective: clinically same Objective - Vital Signs/Intake and Output Vital Signs (last 24 hours): Temp Pulse Resp BP Pulse Ox 98.3 F 98 H 18 130/78 95 12/05/16 11:45 12/05/16 12:08 12/05/16 11:45 12/05/16 12:08 12/05/16 11:45 Intake and Output: 12/05/16 12/05/16 06:59 18:59 Intake Total 330 Balance 330 - Medications Medications: Current Medications Amlodipine Besylate (Norvasc) 10 mg PO DAILY [facility] Last Admin: 12/05/16 11:12 Dose: Not Given Aspirin (Ecotrin) 81 mg PO DAILY [facility] Last Admin: 12/04/16 10:19 Dose: 81 mg Calcium Acetate (Phoslo) 667 mg PO TIDCC [facility] Last Admin: 12/05/16 12:36 Dose: Not Given Clonidine HCl (Catapres) 0.2 mg PO BID [facility] Last Admin: 12/05/16 11:11 Dose: Not Given Escitalopram Oxalate (Lexapro) 10 mg PO DAILY [facility] Last Admin: 12/05/16 11:11 Dose: Not Given Heparin Sodium (Porcine) (Heparin) 5,000 units SC Q12 [facility] Last Admin: 12/04/16 21:15 Dose: 5,000 units Hydromorphone HCl (Dilaudid) 0.5 mg IVP Q5M PRN PRN Reason: Pain, severe (8-10) Stop: 12/05/16 17:02 Moxifloxacin HCl (Avelox Iv 400mg/250ml Ns) 400 mg in 250 mls @ 167 mls/hr IVPB Q24H [facility] Last Admin: 12/05/16 12:20 Dose: 167 mls/hr Labetalol HCl (Normodyne) 300 mg PO TID [facility] Last Admin: 12/05/16 11:12 Dose: Not Given Minoxidil (Minoxidil) 5 mg PO BID [facility] Last Admin: 12/05/16 11:11 Dose: Not Given Ondansetron HCl (Zofran Inj) 4 mg IVP Q4 PRN PRN Reason: Nausea/Vomiting Oxycodone/Acetaminophen (Percocet 5/325 Mg Tab) 1 tab PO Q4H PRN PRN Reason: Pain, moderate (4-7) Stop: 12/08/16 15:02 Pantoprazole Sodium (Protonix Ec Tab) 40 mg PO DAILY [facility] Last Admin: 12/05/16 11:13 Dose: Not Given - Labs Labs: 12/05/16 08:10 12/05/16 08:10 - Constitutional Appears: Well - Head Exam Head Exam: ATRAUMATIC, NORMAL INSPECTION, NORMOCEPHALIC - Eye Exam Eye Exam: EOMI, Normal appearance, PERRL Pupil Exam: NORMAL ACCOMODATION, PERRL - ENT Exam ENT Exam: Mucous Membranes Moist, Normal Exam - Neck Exam Neck Exam: Full ROM, Normal Inspection. absent: Lymphadenopathy - Respiratory Exam Respiratory Exam: Decreased Breath Sounds - Cardiovascular Exam Cardiovascular Exam: REGULAR RHYTHM, +S1, +S2 - GI/Abdominal Exam GI & Abdominal Exam: Soft, Diminished Bowel Sounds - Rectal Exam Rectal Exam: Deferred Assessment and Plan (1) AMPARO (acute kidney injury) Status: Acute (2) Abdominal pain Status: Acute (3) Acute cholecystitis Status: Acute (4) Anemia Status: Acute (5) CHF (congestive heart failure) Status: Acute (6) CKD (chronic kidney disease) stage 5, GFR less than 15 ml/min Status: Acute (7) CKD stage 5 secondary to hypertension Status: Acute (8) Chest pain Status: Acute (9) Dependency on pain medication Status: Acute (10) ESRD (end stage renal disease) Status: Acute (11) ESRD (end stage renal disease) Status: Acute (12) ESRD (end stage renal disease) Status: Acute (13) Elevated lipase Status: Acute (14) End stage renal disease Status: Acute (15) HTN (hypertension) Status: Acute (16) Hypertension Status: Acute (17) Hypertension Status: Acute (18) Hypertensive chronic kidney disease with stage 5 chronic kidney disease or end stage renal disease Status: Acute (19) Hypertensive emergency Status: Acute (20) Hypertensive urgency Status: Acute (21) Hypokalemia Status: Acute (22) Hypokalemia Status: Acute (23) Hypokalemia Status: Acute (24) Hypoxia Status: Acute (25) Intractable abdominal pain Status: Acute (26) NSTEMI (non-ST elevated myocardial infarction) Status: Acute (27) Nausea Status: Acute (28) Nausea & vomiting Status: Acute (29) Nephrolithiasis Status: Acute (30) PUD (peptic ulcer disease) Status: Acute (31) Pneumonia Status: Acute (32) Prophylactic measure Status: Acute (33) Prophylactic measure Status: Acute (34) Proteinuria Status: Acute (35) Renal failure Status: Acute (36) Renal insufficiency Status: Acute (37) Uncontrolled hypertension Status: Acute (38) Vomiting Status: Acute - Assessment and Plan (Free Text) Plan: Labs and meds reviewed Continue as ordered Tolerating dialysis GI on board Avelox Dilaudid Nil by mouth Posted for usman wyman today Discussed with family
[2016-12-05] MEDS: HYDROmorphone 0.5 mg/0.5 ml ISec IVP PRN ×2 (15:33→16:20)
--- NOTE | 2016-12-05 16:52 | RAD ---
PROCEDURE: Intraoperative Fluoroscopy. HISTORY: CHOLECYSTITIS FINDINGS: Fluoroscopic assistance was provided for intraoperative cholangiogram.. Please refer to the operative report from Total fluoroscopic time (continuous mode) utilized during the procedure: 17.6 seconds.
[2016-12-05 17:19] VITALS: RESP 20
[2016-12-05] MEDS: Oxycodone/Acetaminophen 5/325 mg Tab PO PRN ×2 (17:32→20:55)
--- NOTE | 2016-12-05 23:30 | OP ---
PROCEDURE DATE: 12/05/2016 PREOPERATIVE DIAGNOSIS: Acute cholecystitis. POSTOPERATIVE DIAGNOSIS: Acute cholecystitis. PROCEDURE: Laparoscopic cholecystectomy with C-arm cholangiogram. SURGEON: Dr. Burgos. PRODUCTION POSTING CLERK: Dr. Downs, resident. ANESTHESIA ADMINISTERED BY: Dr. Casper and Dr. Kelly. The patient is a middle-aged woman, who requires dialysis. A peritoneal dialysis catheter was inserted and now developed an attack of acute cholecystitis with a positive HIDA scan and an impacted stone in the cystic duct. OPERATIVE FINDINGS: The gallbladder was acutely inflamed. The rest of the intraoperative findings were unremarkable. The PD catheter was in good location in the pelvis. DESCRIPTION OF PROCEDURE: The patient was given general anesthesia, intravenous antibiotics. A needle was placed in the left upper quadrant. Pneumoperitoneum obtained. Then placed a 5 mm trocar and then placed an 11 mm trocar on the patient's right side adjacent to the umbilical area and away from the previously placed peritoneal dialysis catheter. After this was obtained, the gallbladder was identified, the cystic duct, cystic artery reviewed with safety obtained. The gallbladder was decompressed. Cholangiogram carried out as mentioned above with good visualization and after this had been completed, we then removed the gallbladder and obtained excellent hemostasis with minimal blood loss of approximately 20 mL. The gallbladder was then removed from the paraumbilical port and was closed under direct vision. Skin was closed with Steri-Strips. Blood loss 625 mL. Operation carried out, laparoscopic cholecystectomy with C-arm cholangiogram. Mina Burgos Jr., MD cc: MD Dr. Kirby Mondragon.
[2016-12-06] MEDS: Oxycodone/Acetaminophen 5/325 mg Tab PO PRN ×6 (01:00→21:51)
[2016-12-06 09:12] LABS: BASO # 0.1 K/uL (0.0-0.2); BASO % 1.2 % (0.0-2.0); EOS # 0.4 K/uL (0.0-0.7); EOS % 4.1 % (0.0-4.0); HEMATOCRIT 34.5 % (34.0-47.0); LYMPH # 1.1 K/uL (1.0-4.3); LYMPH % 11.2 % (20.0-40.0); MEAN CELL VOLUME 80.6 fL (81.0-99.0); MEAN CORPUSCULAR HEMOGLOBIN 26.3 pg (27.0-31.0); MEAN CORPUSCULAR HGB CONC 32.6 g/dL (33.0-37.0); MEAN PLATELET VOLUME 7.5 fL (7.2-11.7); MONO # 0.6 K/uL (0.0-0.8); MONO % 6.5 % (0.0-10.0); RED CELL DISTRIBUTION WIDTH 24.7 % (11.5-14.5); WHITE BLOOD COUNT 9.5 K/uL (4.8-10.8)
[2016-12-06 09:24] LABS: INR 1.1
[2016-12-06 09:31] LABS: POTASSIUM 4.2 mmol/L (3.6-5.2)
[2016-12-06 09:33] LABS: BILIRUBIN,TOTAL 0.6 mg/dL (0.2-1.3)
[2016-12-06 09:34] LABS: ALB/GLOB RATIO 1.3 (1.0-2.1); TOTAL PROTEIN 6.5 g/dL (6.3-8.3)
[2016-12-06 09:35] LABS: CALCIUM 8.7 mg/dl (8.6-10.4)
[2016-12-06] MEDS: Pantoprazole 40 mg EC Tab PO SCH (09:54)
[2016-12-06] MEDS: Labetalol Hydrochloride 300 mg Tab PO SCH ×3 (09:54→17:36)
--- NOTE | 2016-12-06 10:16 | CP.PCM.PN ---
Subjective - Date & Time of Evaluation Date of Evaluation: 12/06/16 Time of Evaluation: 10:16 - Subjective Subjective: ckubucally stable Objective - Vital Signs/Intake and Output Vital Signs (last 24 hours): Temp Pulse Resp BP Pulse Ox 98.6 F 76 20 122/78 94 L 12/06/16 08:40 12/06/16 08:40 12/06/16 08:40 12/06/16 08:40 12/06/16 08:40 Intake and Output: 12/06/16 12/06/16 06:59 18:59 Intake Total 700 Balance 700 - Medications Medications: Current Medications Amlodipine Besylate (Norvasc) 10 mg PO DAILY [facility] Last Admin: 12/05/16 11:12 Dose: Not Given Aspirin (Ecotrin) 81 mg PO DAILY [facility] Last Admin: 12/04/16 10:19 Dose: 81 mg Calcium Acetate (Phoslo) 667 mg PO TIDCC [facility] Last Admin: 12/06/16 08:42 Dose: 667 mg Clonidine HCl (Catapres) 0.2 mg PO BID [facility] Last Admin: 12/06/16 09:53 Dose: 0.2 mg Escitalopram Oxalate (Lexapro) 10 mg PO DAILY [facility] Last Admin: 12/06/16 09:54 Dose: 10 mg Heparin Sodium (Porcine) (Heparin) 5,000 units SC Q12 [facility] Last Admin: 12/04/16 21:15 Dose: 5,000 units Moxifloxacin HCl (Avelox Iv 400mg/250ml Ns) 400 mg in 250 mls @ 167 mls/hr IVPB Q24H [facility] Last Admin: 12/05/16 12:20 Dose: 167 mls/hr Labetalol HCl (Normodyne) 300 mg PO TID [facility] Last Admin: 12/06/16 09:54 Dose: 300 mg Minoxidil (Minoxidil) 5 mg PO BID [facility] Last Admin: 12/06/16 09:54 Dose: 5 mg Ondansetron HCl (Zofran Inj) 4 mg IVP Q4 PRN PRN Reason: Nausea/Vomiting Oxycodone/Acetaminophen (Percocet 5/325 Mg Tab) 1 tab PO Q4H PRN PRN Reason: Pain, moderate (4-7) Stop: 12/08/16 15:02 Last Admin: 12/06/16 10:07 Dose: 1 tab Pantoprazole Sodium (Protonix Ec Tab) 40 mg PO DAILY [facility] Last Admin: 12/06/16 09:54 Dose: 40 mg - Labs Labs: 12/06/16 08:58 12/06/16 08:58 PT 12.0 SECONDS (9.7-12.2) 12/06/16 08:58 INR 1.1 12/06/16 08:58 APTT 28 SECONDS (21-34) 12/06/16 08:58
--- NOTE | 2016-12-06 11:25 | CP.PCM.PN ---
Subjective - Date & Time of Evaluation Date of Evaluation: 12/06/16 Time of Evaluation: 11:22 - Subjective Subjective: Notes reviewed Tolerated OR well Pain controlled Dialysis without difficulty 12/05 Offerrs no complaints other than fatigue NO cp or palp No sob or cough No n/v/d ROS as above otherwise negative Objective - Vital Signs/Intake and Output Vital Signs (last 24 hours): Temp Pulse Resp BP Pulse Ox 98.6 F 76 20 122/78 94 L 12/06/16 08:40 12/06/16 08:40 12/06/16 08:40 12/06/16 08:40 12/06/16 08:40 Intake and Output: 12/06/16 12/06/16 06:59 18:59 Intake Total 700 Balance 700 - Medications Medications: Current Medications Amlodipine Besylate (Norvasc) 10 mg PO DAILY [facility] Last Admin: 12/05/16 11:12 Dose: Not Given Aspirin (Ecotrin) 81 mg PO DAILY [facility] Last Admin: 12/04/16 10:19 Dose: 81 mg Calcium Acetate (Phoslo) 667 mg PO TIDCC [facility] Last Admin: 12/06/16 08:42 Dose: 667 mg Clonidine HCl (Catapres) 0.2 mg PO BID [facility] Last Admin: 12/06/16 09:53 Dose: 0.2 mg Escitalopram Oxalate (Lexapro) 10 mg PO DAILY [facility] Last Admin: 12/06/16 09:54 Dose: 10 mg Heparin Sodium (Porcine) (Heparin) 5,000 units SC Q12 [facility] Last Admin: 12/04/16 21:15 Dose: 5,000 units Moxifloxacin HCl (Avelox Iv 400mg/250ml Ns) 400 mg in 250 mls @ 167 mls/hr IVPB Q24H [facility] Last Admin: 12/05/16 12:20 Dose: 167 mls/hr Labetalol HCl (Normodyne) 300 mg PO TID [facility] Last Admin: 12/06/16 09:54 Dose: 300 mg Minoxidil (Minoxidil) 5 mg PO BID [facility] Last Admin: 12/06/16 09:54 Dose: 5 mg Ondansetron HCl (Zofran Inj) 4 mg IVP Q4 PRN PRN Reason: Nausea/Vomiting Oxycodone/Acetaminophen (Percocet 5/325 Mg Tab) 2 tab PO Q4H PRN PRN Reason: Pain, moderate (4-7) Stop: 12/08/16 15:02 Pantoprazole Sodium (Protonix Ec Tab) 40 mg PO DAILY [facility] Last Admin: 12/06/16 09:54 Dose: 40 mg - Labs Labs: 12/06/16 08:58 12/06/16 08:58 PT 12.0 SECONDS (9.7-12.2) 12/06/16 08:58 INR 1.1 12/06/16 08:58 APTT 28 SECONDS (21-34) 12/06/16 08:58 - Constitutional Appears: Well, Non-toxic - Head Exam Head Exam: ATRAUMATIC, NORMAL INSPECTION - Eye Exam Eye Exam: EOMI, Normal appearance - ENT Exam ENT Exam: Mucous Membranes Moist, Normal Oropharynx - Respiratory Exam Respiratory Exam: Clear to Ausculation Bilateral. absent: Rhonchi, Wheezes - Cardiovascular Exam Cardiovascular Exam: +S1, +S2. absent: Rubs - GI/Abdominal Exam GI & Abdominal Exam: Soft, Normal Bowel Sounds - Back Exam Back Exam: absent: rash noted, tenderness - Neurological Exam Neurological Exam: Alert, Awake, Oriented x3 - Psychiatric Exam Psychiatric exam: Normal Affect, Normal Mood - Skin Skin Exam: Dry, Intact Assessment and Plan (1) Acute cholecystitis Status: Acute (2) End stage renal disease Status: Acute (3) HTN (hypertension) Status: Acute (4) Anemia Status: Acute - Assessment and Plan (Free Text) Assessment: Maintain dialysis schedule - next treatment 12/08 Bp controlled Electrolytes acceptable Surgical follow up COntinue current care
--- NOTE | 2016-12-06 11:31 | CP.PCM.PN ---
Subjective - Date & Time of Evaluation Date of Evaluation: 12/06/16 Time of Evaluation: 07:40 - Subjective Subjective: clinically same Objective - Vital Signs/Intake and Output Vital Signs (last 24 hours): Temp Pulse Resp BP Pulse Ox 98.6 F 76 20 122/78 94 L 12/06/16 08:40 12/06/16 08:40 12/06/16 08:40 12/06/16 08:40 12/06/16 08:40 Intake and Output: 12/06/16 12/06/16 06:59 18:59 Intake Total 700 Balance 700 - Medications Medications: Current Medications Amlodipine Besylate (Norvasc) 10 mg PO DAILY [facility] Last Admin: 12/05/16 11:12 Dose: Not Given Aspirin (Ecotrin) 81 mg PO DAILY [facility] Last Admin: 12/04/16 10:19 Dose: 81 mg Calcium Acetate (Phoslo) 667 mg PO TIDCC [facility] Last Admin: 12/06/16 08:42 Dose: 667 mg Clonidine HCl (Catapres) 0.2 mg PO BID [facility] Last Admin: 12/06/16 09:53 Dose: 0.2 mg Escitalopram Oxalate (Lexapro) 10 mg PO DAILY [facility] Last Admin: 12/06/16 09:54 Dose: 10 mg Heparin Sodium (Porcine) (Heparin) 5,000 units SC Q12 [facility] Last Admin: 12/04/16 21:15 Dose: 5,000 units Moxifloxacin HCl (Avelox Iv 400mg/250ml Ns) 400 mg in 250 mls @ 167 mls/hr IVPB Q24H [facility] Last Admin: 12/05/16 12:20 Dose: 167 mls/hr Labetalol HCl (Normodyne) 300 mg PO TID [facility] Last Admin: 12/06/16 09:54 Dose: 300 mg Minoxidil (Minoxidil) 5 mg PO BID [facility] Last Admin: 12/06/16 09:54 Dose: 5 mg Ondansetron HCl (Zofran Inj) 4 mg IVP Q4 PRN PRN Reason: Nausea/Vomiting Oxycodone/Acetaminophen (Percocet 5/325 Mg Tab) 2 tab PO Q4H PRN PRN Reason: Pain, moderate (4-7) Stop: 12/08/16 15:02 Pantoprazole Sodium (Protonix Ec Tab) 40 mg PO DAILY [facility] Last Admin: 12/06/16 09:54 Dose: 40 mg - Labs Labs: 12/06/16 08:58 12/06/16 08:58 PT 12.0 SECONDS (9.7-12.2) 12/06/16 08:58 INR 1.1 12/06/16 08:58 APTT 28 SECONDS (21-34) 12/06/16 08:58 - Constitutional Appears: Well - Head Exam Head Exam: ATRAUMATIC, NORMAL INSPECTION, NORMOCEPHALIC - Eye Exam Eye Exam: EOMI, Normal appearance, PERRL Pupil Exam: NORMAL ACCOMODATION, PERRL - ENT Exam ENT Exam: Mucous Membranes Moist, Normal Exam - Neck Exam Neck Exam: Full ROM, Normal Inspection. absent: Lymphadenopathy - Respiratory Exam Respiratory Exam: Decreased Breath Sounds - Cardiovascular Exam Cardiovascular Exam: REGULAR RHYTHM, +S1, +S2 - GI/Abdominal Exam GI & Abdominal Exam: Soft, Diminished Bowel Sounds - Rectal Exam Rectal Exam: Deferred Assessment and Plan (1) AMPARO (acute kidney injury) Status: Acute (2) Abdominal pain Status: Acute (3) Acute cholecystitis Status: Acute (4) Anemia Status: Acute (5) CHF (congestive heart failure) Status: Acute (6) CKD (chronic kidney disease) stage 5, GFR less than 15 ml/min Status: Acute (7) CKD stage 5 secondary to hypertension Status: Acute (8) Chest pain Status: Acute (9) Dependency on pain medication Status: Acute (10) ESRD (end stage renal disease) Status: Acute (11) ESRD (end stage renal disease) Status: Acute (12) ESRD (end stage renal disease) Status: Acute (13) Elevated lipase Status: Acute (14) End stage renal disease Status: Acute (15) HTN (hypertension) Status: Acute (16) Hypertension Status: Acute (17) Hypertension Status: Acute (18) Hypertensive chronic kidney disease with stage 5 chronic kidney disease or end stage renal disease Status: Acute (19) Hypertensive emergency Status: Acute (20) Hypertensive urgency Status: Acute (21) Hypokalemia Status: Acute (22) Hypokalemia Status: Acute (23) Hypokalemia Status: Acute (24) Hypoxia Status: Acute (25) Intractable abdominal pain Status: Acute (26) NSTEMI (non-ST elevated myocardial infarction) Status: Acute (27) Nausea Status: Acute (28) Nausea & vomiting Status: Acute (29) Nephrolithiasis Status: Acute (30) PUD (peptic ulcer disease) Status: Acute (31) Pneumonia Status: Acute (32) Prophylactic measure Status: Acute (33) Prophylactic measure Status: Acute (34) Proteinuria Status: Acute (35) Renal failure Status: Acute (36) Renal insufficiency Status: Acute (37) Uncontrolled hypertension Status: Acute (38) Vomiting Status: Acute - Assessment and Plan (Free Text) Plan: Status post lap garo Patient clinically stable IV Avelox Percocet Zofran Catapres Norvasc Hemodialysis Close monitoring Surgical follow-up Labs next a.m.
[2016-12-06] MEDS: Moxifloxacin IV 400mg/250ml NS 400 MG/250 ML BAG IVPB SCH (13:22)
[2016-12-06 23:45] VITALS: O2SAT 96
[2016-12-07] MEDS: Oxycodone/Acetaminophen 5/325 mg Tab PO PRN ×4 (01:50→13:57)
[2016-12-07 08:42] VITALS: BP 130/77; PULSE 70; TEMP 98.1
[2016-12-07] MEDS: Labetalol Hydrochloride 300 mg Tab PO SCH ×2 (10:11→14:00)
[2016-12-07] MEDS: Pantoprazole 40 mg EC Tab PO SCH (10:12)
--- NOTE | 2016-12-07 12:19 | CP.PCM.PN ---
Subjective - Date & Time of Evaluation Date of Evaluation: 12/07/16 Time of Evaluation: 07:40 - Subjective Subjective: clinically same Objective - Vital Signs/Intake and Output Vital Signs (last 24 hours): Temp Pulse Resp BP Pulse Ox 98.1 F 70 20 130/77 96 12/07/16 08:41 12/07/16 08:41 12/07/16 08:41 12/07/16 08:41 12/07/16 08:41 Intake and Output: 12/07/16 12/07/16 06:59 18:59 Intake Total 400 Balance 400 - Medications Medications: Current Medications Amlodipine Besylate (Norvasc) 10 mg PO DAILY [facility] Last Admin: 12/06/16 11:51 Dose: 10 mg Aspirin (Ecotrin) 81 mg PO DAILY [facility] Last Admin: 12/04/16 10:19 Dose: 81 mg Calcium Acetate (Phoslo) 667 mg PO TIDCC [facility] Last Admin: 12/07/16 08:01 Dose: 667 mg Clonidine HCl (Catapres) 0.2 mg PO BID [facility] Last Admin: 12/07/16 10:12 Dose: 0.2 mg Escitalopram Oxalate (Lexapro) 10 mg PO DAILY [facility] Last Admin: 12/07/16 10:10 Dose: 10 mg Heparin Sodium (Porcine) (Heparin) 5,000 units SC Q12 [facility] Last Admin: 12/04/16 21:15 Dose: 5,000 units Moxifloxacin HCl (Avelox Iv 400mg/250ml Ns) 400 mg in 250 mls @ 167 mls/hr IVPB Q24H [facility] Last Admin: 12/06/16 13:22 Dose: 167 mls/hr Labetalol HCl (Normodyne) 300 mg PO TID [facility] Last Admin: 12/07/16 10:11 Dose: 300 mg Minoxidil (Minoxidil) 5 mg PO BID [facility] Last Admin: 12/07/16 10:10 Dose: 5 mg Ondansetron HCl (Zofran Inj) 4 mg IVP Q4 PRN PRN Reason: Nausea/Vomiting Oxycodone/Acetaminophen (Percocet 5/325 Mg Tab) 2 tab PO Q4H PRN PRN Reason: Pain, moderate (4-7) Stop: 12/08/16 15:02 Last Admin: 12/07/16 10:05 Dose: 2 tab Pantoprazole Sodium (Protonix Ec Tab) 40 mg PO DAILY [facility] Last Admin: 12/07/16 10:12 Dose: 40 mg - Labs Labs: 12/06/16 08:58 12/06/16 08:58 PT 12.0 SECONDS (9.7-12.2) 12/06/16 08:58 INR 1.1 12/06/16 08:58 APTT 28 SECONDS (21-34) 12/06/16 08:58 - Constitutional Appears: Well - Head Exam Head Exam: ATRAUMATIC, NORMAL INSPECTION, NORMOCEPHALIC - Eye Exam Eye Exam: EOMI, Normal appearance, PERRL Pupil Exam: NORMAL ACCOMODATION, PERRL - ENT Exam ENT Exam: Mucous Membranes Moist, Normal Exam - Neck Exam Neck Exam: Full ROM, Normal Inspection. absent: Lymphadenopathy - Respiratory Exam Respiratory Exam: Decreased Breath Sounds - Cardiovascular Exam Cardiovascular Exam: REGULAR RHYTHM, +S1, +S2 - GI/Abdominal Exam GI & Abdominal Exam: Soft, Diminished Bowel Sounds - Rectal Exam Rectal Exam: Deferred Assessment and Plan (1) AMPARO (acute kidney injury) Status: Acute (2) Abdominal pain Status: Acute (3) Acute cholecystitis Status: Acute (4) Anemia Status: Acute (5) CHF (congestive heart failure) Status: Acute (6) CKD (chronic kidney disease) stage 5, GFR less than 15 ml/min Status: Acute (7) CKD stage 5 secondary to hypertension Status: Acute (8) Chest pain Status: Acute (9) Dependency on pain medication Status: Acute (10) ESRD (end stage renal disease) Status: Acute (11) ESRD (end stage renal disease) Status: Acute (12) ESRD (end stage renal disease) Status: Acute (13) Elevated lipase Status: Acute (14) End stage renal disease Status: Acute (15) HTN (hypertension) Status: Acute (16) Hypertension Status: Acute (17) Hypertension Status: Acute (18) Hypertensive chronic kidney disease with stage 5 chronic kidney disease or end stage renal disease Status: Acute (19) Hypertensive emergency Status: Acute (20) Hypertensive urgency Status: Acute (21) Hypokalemia Status: Acute (22) Hypokalemia Status: Acute (23) Hypokalemia Status: Acute (24) Hypoxia Status: Acute (25) Intractable abdominal pain Status: Acute (26) NSTEMI (non-ST elevated myocardial infarction) Status: Acute (27) Nausea Status: Acute (28) Nausea & vomiting Status: Acute (29) Nephrolithiasis Status: Acute (30) PUD (peptic ulcer disease) Status: Acute (31) Pneumonia Status: Acute (32) Prophylactic measure Status: Acute (33) Prophylactic measure Status: Acute (34) Proteinuria Status: Acute (35) Renal failure Status: Acute (36) Renal insufficiency Status: Acute (37) Uncontrolled hypertension Status: Acute (38) Vomiting Status: Acute - Assessment and Plan (Free Text) Plan: Patient clinically better No any acute events Tolerating hemodialysis Plan discharge Follow-up as outpatient clinic Continue home medications Return to ED if symptom recurs
[2016-12-07] MEDS: Moxifloxacin IV 400mg/250ml NS 400 MG/250 ML BAG IVPB SCH (13:00)
--- NOTE | 2016-12-19 08:20 | CARD ---
APPROVED REPORT EKG Measurement Heart [id number] <Conclusion> Sinus bradycardia T wave abnormality, consider lateral ischemia Prolonged QT Abnormal ECG
== END 2016-12-07 15:05 | disposition home or self-care (01) | DRG 556 ==
LOC: C.ER 11:30 → C.9E 12:52 → C.3T 14:29
PROVIDERS: ADMIT Internal Medicine Nephrology; ATTEND Internal Medicine Nephrology
PROC: BF00YZZ Plain Radiography of Bile Ducts using Other Contrast (ICD-10-PCS; 2016-12-05)
PROC: 0FT44ZZ Resection of Gallbladder, Percutaneous Endoscopic Approach (ICD-10-PCS; principal; 2016-12-05 12:30)
DX: K80.00 Calculus of gallbladder with acute cholecystitis without obstruction (principal); I50.30 Unspecified diastolic (congestive) heart failure; I13.2 Hypertensive heart and chronic kidney disease with heart failure and with stage 5 chronic kidney disease, or end stage renal disease; N18.6 End stage renal disease; E87.6 Hypokalemia; F19.20 Other psychoactive substance dependence, uncomplicated; K27.3 Acute peptic ulcer, site unspecified, without hemorrhage or perforation; F17.210 Nicotine dependence, cigarettes, uncomplicated; N21.1 Calculus in urethra; A08.4 Viral intestinal infection, unspecified; D64.9 Anemia, unspecified; R01.1 Cardiac murmur, unspecified; I25.2 Old myocardial infarction; Z99.2 Dependence on renal dialysis; Z91.14 Patient's other noncompliance with medication regimen

== ENCOUNTER 2016-12-31 14:01 | Inpatient (IN) | payer MEDICAID, OTHER ==
[2016-12-31] MEDS ORDERED: Labetalol 25mg/5ml Syringe IVP STA (14:15)
[2016-12-31] MEDS ORDERED: Labetalol 25mg/5ml Syringe IV STA (14:19)
--- NOTE | 2016-12-31 14:33 | C.PDOC ---
History Of Present Illness 36 year old female presents to the ED for evaluation of high systolic and diastolic blood pressure at 199/125 earlier today. She was referred by Dr. Perez. Patient was newly diagnosed with hypertension in October 2016. She receives peritoneal dialysis and while at training today her blood pressure was high. Patient was given clonidine PO at training but blood pressure was still not controlled. Patient notes she is taking several medications including catapres, norvasc and labetalol but her blood pressure remains uncontrolled. She notes a headache 10 minutes prior to arrival and began to see flashing lights but has resolved on arrival. Patient denies nausea, vomiting, fever or chills. Time Seen by Provider: 12/31/16 14:11 Chief Complaint (Nursing): High Blood Pressure History Per: Patient History/Exam Limitations: no limitations Onset/Duration Of Symptoms: Hrs Current Symptoms Are (Timing): Still Present Associated Symptoms: Headache. denies: Chest Pain Recent travel outside of the [place]: No Additional History Per: Prior Records (dialysis center ) Past Medical History Reviewed: Historical Data, Nursing Documentation, Vital Signs Vital Signs: Last Vital Signs Temp 98.5 F 12/31/16 14:10 Pulse 74 12/31/16 15:30 Resp 22 12/31/16 15:30 BP 159/104 H 12/31/16 15:30 Pulse Ox 100 12/31/16 15:53 - Medical History PMH: Anemia, Anxiety, CHF, Depression, HTN, Kidney Stones (8 years ago), Chronic Kidney Disease - [facility] Procedures INSERT OF INFUSION DEV INTO PERITON CAV, PERC ENDO APPROACH (11/08/16) IRRIGATION OF PERITON CAV USING DIALYSATE, PERC APPROACH (11/08/16) PLAIN RADIOGRAPHY OF BILE DUCTS USING OTHER CONTRAST (11/29/16) RESECTION OF GALLBLADDER, PERCUTANEOUS ENDOSCOPIC APPROACH (11/29/16) Family History: States: Unknown Family Hx - Social History Hx Alcohol Use: Yes Hx Substance Use: No - Immunization History Hx Tetanus Toxoid Vaccination: No Hx Influenza Vaccination: No Hx Pneumococcal Vaccination: No Review Of Systems Constitutional: Positive for: Other (high blood pressure ). Negative for: Fever , Chills Eyes: Positive for: Vision Change (flashing lights ) Cardiovascular: Negative for: Chest Pain, Palpitations Respiratory: Negative for: Cough, Shortness of Breath Gastrointestinal: Negative for: Nausea, Vomiting, Abdominal Pain, Diarrhea Neurological: Positive for: Headache. Negative for: Weakness, Numbness, Dizziness Physical Exam - Physical Exam Appears: Non-toxic, No Acute Distress Skin: Warm, Dry Head: Atraumatic Eye(s): bilateral: Normal Inspection, PERRL, EOMI Oral Mucosa: Moist Neck: Supple Chest: Symmetrical, No Deformity Cardiovascular: Rhythm Regular, No Murmur Respiratory: Normal Breath Sounds, No Rales, No Rhonchi, No Wheezing Gastrointestinal/Abdominal: Soft, No Tenderness, No Distention, No Guarding, No Rebound, Other (PD catheter in upper abdomen ) Extremity: Normal ROM, No Tenderness Neurological/Psych: Oriented x3, Normal Speech, Normal Cognition, Normal Motor, Normal Sensation ED Course And Treatment - Laboratory Results Result Diagrams: 12/31/16 14:31 12/31/16 14:31 Lab Interpretation: Abnormal (WBC 12.7, BUN 43, Cr 4.5 K+ 3.1) ECG: Interpreted By Me, Viewed By Me ECG Rhythm: Sinus Rhythm (LVH), ST/T Changes (nonspecific) ECG Interpretation: Normal Rate From EC O2 Sat by Pulse Oximetry: 100 (room air ) Pulse Ox Interpretation: Normal - CT Scan/US Head CT W/O Contrast Other Rad Studies (CT/US): Read By Radiologist, Radiology Report Reviewed CT/US Interpretation: FINDINGS: HEMORRHAGE: No intracranial hemorrhage. BRAIN : No mass effect or edema. The wang-white matter differentiation appears intact. Please note that MRI with diffusion imaging is more sensitive in the detection of acute ischemic event. VENTRICLES: No hydrocephalus. CALVARIUM: Unremarkable. PARANASAL SINUSES: Unremarkable as visualized. No significant inflammatory changes. MASTOID AIR CELLS: Unremarkable as visualized. No inflammatory changes. OTHER FINDINGS: None. IMPRESSION: No acute intracranial pathology identified. Progress Note: EKG, head CT, and UA were ordered. Patient was given Trandate. Reevaluation Time: 15:52 Reassessment Condition: Improved (BP 160/104) - Physician Consult Information Time Consulting Physician Contacted: 15:52 Physician Contacted: Vanessa Orr Outcome Of Conversation: Discussed with Dr Felisa hobbs. Patient to be admitted for uncontrolled hypertension. Disposition - Disposition Disposition: HOSPITALIZED Disposition Time: 16:06 Condition: IMPROVED - POA Present On Arrival: None - Clinical Impression Clinical Impression: Hypertensive urgency, CKD stage 5 secondary to hypertension - Scribe Statement The provider has reviewed the documentation as recorded by the Chapinibjuan Brink All medical record entries made by the Funmi were at my direction and personally dictated by me. I have reviewed the chart and agree that the record accurately reflects my personal performance of the history, physical exam, medical decision making, and the department course for this patient. I have also personally directed, reviewed, and agree with the discharge instructions and disposition.
[2016-12-31 14:35] LABS: BASO # 0.1 K/uL (0.0-0.2); BASO % 0.7 % (0.0-2.0); EOS # 0.4 K/uL (0.0-0.7); EOS % 3.4 % (0.0-4.0); HEMATOCRIT 35.6 % (34.0-47.0); LYMPH # 1.8 K/uL (1.0-4.3); LYMPH % 13.9 % (20.0-40.0); MEAN CELL VOLUME 80.1 fL (81.0-99.0); MEAN CORPUSCULAR HEMOGLOBIN 27.2 pg (27.0-31.0); MEAN CORPUSCULAR HGB CONC 33.9 g/dL (33.0-37.0); MONO # 0.7 K/uL (0.0-0.8); MONO % 5.6 % (0.0-10.0); NRBC % 0.1 % (0.0-2.0); RED CELL DISTRIBUTION WIDTH 24.4 % (11.5-14.5); WHITE BLOOD COUNT 12.7 K/uL (4.8-10.8)
[2016-12-31 14:44] LABS: POTASSIUM 3.1 mmol/L (3.6-5.2)
[2016-12-31 14:46] LABS: ALB/GLOB RATIO 1.4 (1.0-2.1); CALCIUM 10.3 mg/dl (8.6-10.4); TOTAL PROTEIN 8.2 g/dL (6.3-8.3)
--- NOTE | 2016-12-31 15:08 | CT ---
PROCEDURE: CT HEAD WITHOUT CONTRAST. HISTORY: Headache COMPARISON: None available. TECHNIQUE: Axial computed tomography images were obtained through the head/brain without intravenous contrast. Radiation dose: Total exam DLP = 787.41 mGy-cm. This CT exam was performed using one or more of the following dose reduction techniques: Automated exposure control, adjustment of the mA and/or kV according to patient size, and/or use of iterative reconstruction technique. FINDINGS: HEMORRHAGE: No intracranial hemorrhage. BRAIN: No mass effect or edema. The wang-white matter differentiation appears intact. Please note that MRI with diffusion imaging is more sensitive in the detection of acute ischemic event. VENTRICLES: No hydrocephalus. CALVARIUM: Unremarkable. PARANASAL SINUSES: Unremarkable as visualized. No significant inflammatory changes. MASTOID AIR CELLS: Unremarkable as visualized. No inflammatory changes. OTHER FINDINGS: None. IMPRESSION: No acute intracranial pathology identified.
[2016-12-31 22:53] LABS: RBC URINE 11 /hpf (0-3); URINE BACTERIA OCC (<OCC); URINE BILIRUBIN NEGATIVE (NEGATIVE); URINE BLOOD 1+ (NEGATIVE); URINE COLOR Yellow (YELLOW); URINE GLUCOSE (UA) 1+ mg/dL (Normal); URINE KETONE NEGATIVE (NEGATIVE); URINE LEUKOCYTE ESTERASE NEG Leu/uL (Negative); URINE PROTEIN 3+ mg/dL (NEGATIVE); URINE UROBILINOGEN NORMAL mg/dL (0.2-1.0); WBC URINE 3 /hpf (0-5)
[2017-01-01] MEDS ORDERED: Labetalol 25mg/5ml Syringe IVP STA (05:40)
--- NOTE | 2017-01-01 12:39 | CP.PCM.CON ---
History of Present Illness - History of Present Illness History of Present Illness: 36 year old female presented to the ED for evaluation of high systolic and diastolic blood pressure at 199/125 earlier today. She receives peritoneal dialysis and while at training yesterday her blood pressure was high. Patient was given clonidine PO at training but blood pressure was still not controlled. Patient notes she is taking several medications including catapres, norvasc and labetalol but her blood pressure remains uncontrolled. She notes a headache 10 minutes prior to arrival and began to see flashing lights but has resolved on arrival. Patient denies nausea, vomiting, fever or chills. Today bp improved. Pt denies any headaches dizziness numbness weakness nausea vomiting diarrhea. Shortness of breath improved after pd fluid drained. Has rt chest permcath, last hd thursday, training for pd. c/o constipation and mild suprapubic pain. Per PD nurse, clear pd fluid, catheter with no issues. Pt denies any fevers chills Review of Systems - Review of Systems All systems: reviewed and no additional remarkable complaints except (as per hpi ) Past Patient History - Past Medical History & Family History Past Medical History?: Yes - Past Social History Smoking Status: Light Smoker < 10 Cigarettes Daily - CARDIAC Hx Congestive Heart Failure: Yes Hx Hypertension: Yes - PULMONARY Hx Respiratory Disorders: No - NEUROLOGICAL Hx Neurological Disorder: No - HEENT Hx HEENT Problems: No Other/Comment: eyeglasses for reading - RENAL Hx Dialysis: Yes Type of Dialysis Access: PD cath Date of Last Dialysis Treatment: 12/26/16 Hx Kidney Stones: Yes (left) - ENDOCRINE/METABOLIC Hx Endocrine Disorders: No - HEMATOLOGICAL/ONCOLOGICAL Hx Anemia: Yes - INTEGUMENTARY Hx Dermatological Problems: No - MUSCULOSKELETAL/RHEUMATOLOGICAL Hx Falls: No - GASTROINTESTINAL Hx Gastrointestinal Disorders: No - GENITOURINARY/GYNECOLOGICAL Hx Genitourinary Disorders: No - PSYCHIATRIC Hx Anxiety: Yes Hx Depression: Yes Hx Substance Use: No - SURGICAL HISTORY Hx Surgeries: Yes Hx Cholecystectomy: Yes Other/Comment: Insertion of peritoneal catheter /tenchoff cath - ANESTHESIA Hx Anesthesia: Yes Hx Anesthesia Reactions: No Hx Malignant Hyperthermia: No Meds Allergies/Adverse Reactions: Allergies Allergy/AdvReac Type Severity Reaction Status Date / Time No Known Allergies Allergy Verified 12/31/16 14:10 - Medications Medications: Current Medications Acetaminophen (Tylenol 325mg Tab) 650 mg PO Q6 PRN PRN Reason: Pain, moderate (4-7) Last Admin: 01/01/17 05:50 Dose: 650 mg Amlodipine Besylate (Norvasc) 10 mg PO DAILY [facility] Last Admin: 01/01/17 09:59 Dose: 10 mg Aspirin (Ecotrin) 81 mg PO DAILY [facility] Last Admin: 01/01/17 10:00 Dose: 81 mg Clonidine HCl (Catapres) 0.2 mg PO BID [facility] Last Admin: 01/01/17 10:56 Dose: 0.2 mg Escitalopram Oxalate (Lexapro) 10 mg PO HS [facility] Last Admin: 12/31/16 23:09 Dose: 10 mg Ferrous Sulfate (Feosol) 325 mg PO DAILY [facility] Last Admin: 01/01/17 10:00 Dose: 325 mg Heparin Sodium (Porcine) (Heparin) 5,000 units SC Q12H [facility] Minoxidil (Minoxidil) 5 mg PO BID [facility] Last Admin: 01/01/17 09:59 Dose: 5 mg Physical Exam - Constitutional Appears: Non-toxic, No Acute Distress - Head Exam Head Exam: NORMAL INSPECTION - Eye Exam Eye Exam: Normal appearance - ENT Exam ENT Exam: Mucous Membranes Moist, Normal Exam - Respiratory Exam Respiratory Exam: Decreased Breath Sounds, Clear to Auscultation Bilateral, NORMAL BREATHING PATTERN - Cardiovascular Exam Cardiovascular Exam: REGULAR RHYTHM, RRR - GI/Abdominal Exam GI & Abdominal Exam: Normal Bowel Sounds, Soft (pd catheter, dressing clean) - Extremities Exam Extremities exam: Positive for: normal inspection Results - Vital Signs Recent Vital Signs: Last Vital Signs Temp 98.6 F 01/01/17 08:20 Pulse 76 01/01/17 08:20 Resp 20 01/01/17 08:20 BP 157/86 H 01/01/17 08:20 Pulse Ox 99 01/01/17 08:20 - Labs Result Diagrams: 12/31/16 14:31 12/31/16 14:31 Labs: Laboratory Results - last 24 hr 12/31/16 22:43 Urine Color Yellow Urine Clarity Hazy Urine pH 5.0 Ur Specific [place] 1.017 Urine Protein 3+ H Urine Glucose (UA) 1+ Urine Ketones Negative Urine Blood 1+ H Urine Nitrate Negative Urine Bilirubin Negative Urine Urobilinogen Normal Ur Leukocyte Esterase Neg Urine WBC (Auto) 3 Urine RBC (Auto) 11 H Ur Squamous Epith Cells 5 Urine Bacteria Occ H Assessment & Plan (1) ESRD (end stage renal disease) Status: Acute (2) Hypertension Status: Acute (3) Hypokalemia Status: Acute - Assessment and Plan (Free Text) Assessment: - hd today, 4K bath maintain current bp meds hgb at goal, no roberto carlos
--- NOTE | 2017-01-01 13:09 | CARD ---
APPROVED REPORT EKG Measurement Heart [id number] <Conclusion> Normal sinus rhythm Possible Left atrial enlargement Left ventricular hypertrophy Nonspecific ST and T wave abnormality Abnormal ECG
--- NOTE | 2017-01-01 19:31 | CP.PCM.HP ---
Past Patient History - Past Medical History & Family History Past Medical History?: Yes - Past Social History Smoking Status: Light Smoker < 10 Cigarettes Daily - CARDIAC Hx Congestive Heart Failure: Yes Hx Hypertension: Yes - PULMONARY Hx Respiratory Disorders: No - NEUROLOGICAL Hx Neurological Disorder: No - HEENT Hx HEENT Problems: No Other/Comment: eyeglasses for reading - RENAL Hx Dialysis: Yes Type of Dialysis Access: PD cath Date of Last Dialysis Treatment: 12/26/16 Hx Kidney Stones: Yes (left) - ENDOCRINE/METABOLIC Hx Endocrine Disorders: No - HEMATOLOGICAL/ONCOLOGICAL Hx Anemia: Yes - INTEGUMENTARY Hx Dermatological Problems: No - MUSCULOSKELETAL/RHEUMATOLOGICAL Hx Falls: No - GASTROINTESTINAL Hx Gastrointestinal Disorders: No - GENITOURINARY/GYNECOLOGICAL Hx Genitourinary Disorders: No - PSYCHIATRIC Hx Anxiety: Yes Hx Depression: Yes Hx Substance Use: No - SURGICAL HISTORY Hx Surgeries: Yes Hx Cholecystectomy: Yes Other/Comment: Insertion of peritoneal catheter /tenchoff cath - ANESTHESIA Hx Anesthesia: Yes Hx Anesthesia Reactions: No Hx Malignant Hyperthermia: No Meds Allergies/Adverse Reactions: Allergies Allergy/AdvReac Type Severity Reaction Status Date / Time No Known Allergies Allergy Verified 12/31/16 14:10 Results - Vital Signs Recent Vital Signs: Last Vital Signs Temp 98 F 01/01/17 17:44 Pulse 92 H 01/01/17 17:44 Resp 16 01/01/17 17:44 BP 164/104 H 01/01/17 17:44 Pulse Ox 99 01/01/17 17:44 - Labs Result Diagrams: 12/31/16 14:31 12/31/16 14:31 Labs: Laboratory Results - last 24 hr 12/31/16 22:43 Urine Color Yellow Urine Clarity Hazy Urine pH 5.0 Ur Specific [place] 1.017 Urine Protein 3+ H Urine Glucose (UA) 1+ Urine Ketones Negative Urine Blood 1+ H Urine Nitrate Negative Urine Bilirubin Negative Urine Urobilinogen Normal Ur Leukocyte Esterase Neg Urine WBC (Auto) 3 Urine RBC (Auto) 11 H Ur Squamous Epith Cells 5 Urine Bacteria Occ H
[2017-01-01] MEDS: Oxycodone/Acetaminophen 5/325 mg Tab PO PRN (21:35)
[2017-01-02] MEDS: Oxycodone/Acetaminophen 5/325 mg Tab PO PRN ×2 (05:51→12:43)
[2017-01-02 06:48] LABS: POTASSIUM 3.4 mmol/L (3.6-5.2)
[2017-01-02 06:50] LABS: ALB/GLOB RATIO 1.3 (1.0-2.1); BILIRUBIN,TOTAL 0.6 mg/dL (0.2-1.3); TOTAL PROTEIN 6.9 g/dL (6.3-8.3)
[2017-01-02 06:51] LABS: CALCIUM 9.8 mg/dl (8.6-10.4)
[2017-01-02 06:54] LABS: BASO # 0.1 K/uL (0.0-0.2); BASO % 0.7 % (0.0-2.0); EOS # 0.3 K/uL (0.0-0.7); EOS % 3.3 % (0.0-4.0); HEMATOCRIT 29.6 % (34.0-47.0); LYMPH # 2.1 K/uL (1.0-4.3); LYMPH % 21.7 % (20.0-40.0); MEAN CELL VOLUME 79.5 fL (81.0-99.0); MEAN CORPUSCULAR HEMOGLOBIN 27.4 pg (27.0-31.0); MEAN CORPUSCULAR HGB CONC 34.4 g/dL (33.0-37.0); MEAN PLATELET VOLUME 7.3 fL (7.2-11.7); MONO # 0.6 K/uL (0.0-0.8); MONO % 6.5 % (0.0-10.0); WHITE BLOOD COUNT 9.7 K/uL (4.8-10.8)
--- NOTE | 2017-01-02 09:44 | CP.PCM.PN ---
Subjective - Date & Time of Evaluation Date of Evaluation: 01/02/17 Time of Evaluation: 09:43 - Subjective Subjective: seen and examined s/p hd yesterday, sluggish blood flow. bp improved hr 60s Objective - Vital Signs/Intake and Output Vital Signs (last 24 hours): Temp Pulse Resp BP Pulse Ox 98.3 F 58 L 17 147/77 100 01/02/17 07:15 01/02/17 07:15 01/02/17 07:15 01/02/17 07:15 01/02/17 07:15 - Medications Medications: Current Medications Acetaminophen (Tylenol 325mg Tab) 650 mg PO Q6 PRN PRN Reason: Pain, moderate (4-7) Last Admin: 01/01/17 16:19 Dose: 650 mg Amlodipine Besylate (Norvasc) 10 mg PO DAILY [facility] Last Admin: 01/01/17 09:59 Dose: 10 mg Aspirin (Ecotrin) 81 mg PO DAILY [facility] Last Admin: 01/01/17 10:00 Dose: 81 mg Clonidine HCl (Catapres) 0.2 mg PO TID [facility] Last Admin: 01/01/17 20:07 Dose: Not Given Escitalopram Oxalate (Lexapro) 10 mg PO HS [facility] Last Admin: 01/01/17 21:35 Dose: 10 mg Ferrous Sulfate (Feosol) 325 mg PO DAILY [facility] Last Admin: 01/01/17 10:00 Dose: 325 mg Heparin Sodium (Porcine) (Heparin) 5,000 units SC Q12H [facility] Last Admin: 01/01/17 21:35 Dose: 5,000 units Minoxidil (Minoxidil) 5 mg PO BID [facility] Last Admin: 01/01/17 17:42 Dose: 5 mg Oxycodone/Acetaminophen (Percocet 5/325 Mg Tab) 1 tab PO Q6H PRN PRN Reason: Pain, moderate (4-7) Stop: 01/04/17 20:51 Last Admin: 01/02/17 05:51 Dose: 1 tab - Labs Labs: 01/02/17 06:16 01/02/17 06:16 - Constitutional Appears: Non-toxic, No Acute Distress - Head Exam Head Exam: NORMAL INSPECTION - Eye Exam Eye Exam: Normal appearance - ENT Exam ENT Exam: Mucous Membranes Moist, Normal Exam - Neck Exam Neck Exam: Normal Inspection - Respiratory Exam Respiratory Exam: Clear to Ausculation Bilateral, NORMAL BREATHING PATTERN - Cardiovascular Exam Cardiovascular Exam: REGULAR RHYTHM, RRR - GI/Abdominal Exam GI & Abdominal Exam: Distended (pd catheter, dressing clean), Soft - Extremities Exam Extremities Exam: Normal Inspection Assessment and Plan (1) ESRD (end stage renal disease) Status: Acute (2) Hypertension Status: Acute (3) Hypokalemia Status: Acute - Assessment and Plan (Free Text) Assessment: stable from renal standpoint pt to resume pd training after dc needs permcath removal, IR called bp acceptable lactulose for constipation
--- NOTE | 2017-01-02 13:21 | PCM.SURG1 ---
Surgeon's Initial Post Op Note - Surgeon's Notes Surgeon: thuan Truck Packer: 0 Type of Anesthesia: None Pre-Operative Diagnosis: unnecessary permacath Operative Findings: catheter removed intact Post-Operative Diagnosis: same Operation Performed: removal of permacath rij Specimen/Specimens Removed: permacath -discarded Estimated Blood Loss: EBL {In ML}: 3 Blood Products Given: N/A Drains Used: No Drains Post-Op Condition: Good Date of Surgery/Procedure: 01/02/17 Time of Surgery/Procedure: 13:21
--- NOTE | 2017-01-02 14:43 | CP.PCM.PN ---
Subjective - Date & Time of Evaluation Date of Evaluation: 01/02/17 Time of Evaluation: 14:43 Objective - Vital Signs/Intake and Output Vital Signs (last 24 hours): Temp Pulse Resp BP Pulse Ox 98.3 F 58 L 17 147/77 100 01/02/17 07:15 01/02/17 07:15 01/02/17 07:15 01/02/17 07:15 01/02/17 07:15 Intake and Output: 01/02/17 01/02/17 06:59 18:59 Output Total 900 Balance -900 - Medications Medications: Current Medications Acetaminophen (Tylenol 325mg Tab) 650 mg PO Q6 PRN PRN Reason: Pain, moderate (4-7) Last Admin: 01/01/17 16:19 Dose: 650 mg Amlodipine Besylate (Norvasc) 10 mg PO DAILY [facility] Last Admin: 01/02/17 10:05 Dose: 10 mg Aspirin (Ecotrin) 81 mg PO DAILY [facility] Last Admin: 01/02/17 10:07 Dose: 81 mg Clonidine HCl (Catapres) 0.2 mg PO TID [facility] Last Admin: 01/02/17 10:06 Dose: 0.2 mg Escitalopram Oxalate (Lexapro) 10 mg PO HS [facility] Last Admin: 01/01/17 21:35 Dose: 10 mg Ferrous Sulfate (Feosol) 325 mg PO DAILY [facility] Last Admin: 01/02/17 10:06 Dose: 325 mg Heparin Sodium (Porcine) (Heparin) 5,000 units SC Q12H [facility] Last Admin: 01/02/17 10:11 Dose: Not Given Minoxidil (Minoxidil) 5 mg PO BID [facility] Last Admin: 01/02/17 10:05 Dose: 5 mg Oxycodone/Acetaminophen (Percocet 5/325 Mg Tab) 1 tab PO Q6H PRN PRN Reason: Pain, moderate (4-7) Stop: 01/04/17 20:51 Last Admin: 01/02/17 12:43 Dose: 1 tab - Labs Labs: 01/02/17 06:16 01/02/17 06:16
[2017-01-02] MEDS ORDERED: Potassium Chloride 20 mEq ER Tab PO ONE (15:45)
--- NOTE | 2017-01-02 15:47 | CP.PCM.PN ---
Subjective - Date & Time of Evaluation Date of Evaluation: 01/02/17 Time of Evaluation: 15:44 - Subjective Subjective: PT SEEN AND EXAMINED TODAY BY DR BILLINGSLEY TODAY, REMAIN STABLE. Objective - Vital Signs/Intake and Output Vital Signs (last 24 hours): Temp Pulse Resp BP Pulse Ox 98.3 F 58 L 17 142/78 100 01/02/17 07:15 01/02/17 07:15 01/02/17 07:15 01/02/17 15:04 01/02/17 07:15 Intake and Output: 01/02/17 01/02/17 06:59 18:59 Intake Total 480 Output Total 900 Balance -420 - Medications Medications: Current Medications Acetaminophen (Tylenol 325mg Tab) 650 mg PO Q6 PRN PRN Reason: Pain, moderate (4-7) Last Admin: 01/01/17 16:19 Dose: 650 mg Amlodipine Besylate (Norvasc) 10 mg PO DAILY [facility] Last Admin: 01/02/17 10:05 Dose: 10 mg Aspirin (Ecotrin) 81 mg PO DAILY [facility] Last Admin: 01/02/17 10:07 Dose: 81 mg Clonidine HCl (Catapres) 0.2 mg PO TID [facility] Last Admin: 01/02/17 15:04 Dose: 0.2 mg Escitalopram Oxalate (Lexapro) 10 mg PO HS [facility] Last Admin: 01/01/17 21:35 Dose: 10 mg Ferrous Sulfate (Feosol) 325 mg PO DAILY [facility] Last Admin: 01/02/17 10:06 Dose: 325 mg Heparin Sodium (Porcine) (Heparin) 5,000 units SC Q12H [facility] Last Admin: 01/02/17 10:11 Dose: Not Given Minoxidil (Minoxidil) 5 mg PO BID [facility] Last Admin: 01/02/17 10:05 Dose: 5 mg Oxycodone/Acetaminophen (Percocet 5/325 Mg Tab) 1 tab PO Q6H PRN PRN Reason: Pain, moderate (4-7) Stop: 01/04/17 20:51 Last Admin: 01/02/17 12:43 Dose: 1 tab Potassium Chloride (K-Dur 20 Meq Er Tab) 40 meq PO ONCE ONE Stop: 01/02/17 15:46 - Labs Labs: 01/02/17 06:16 01/02/17 06:16 Assessment and Plan - Assessment and Plan (Free Text) Plan: 36 Y/O FEMALE WITH PMHX ADMITTED FOR STABLE FOR D/C PER DR BILLINGSLEY, SURGERY AND RENAL RESUME PD TRAINING AFTER DC PERMACATH REMOVED CONTINUE MEDS PER MED REC F/U WITH PMD AND DYE MIXER RETURN TO ER IF ANY WORSENING S/S RX FOR #15 WRITTEN AND GIVEN TO PT BY DR BILLINGSLEY
[2017-01-02 16:28] VITALS: BP 134/70; RESP 20; TEMP 98.7; O2SAT 99
[2017-01-02 17:03] VITALS: PULSE 64
== END 2017-01-02 17:20 | disposition home or self-care (01) | DRG 134 ==
LOC: C.ER 14:01 → C.9E 16:06 → C.6T 19:39
PROVIDERS: ADMIT Internal Medicine Critical Care Medicine; ATTEND Internal Medicine Critical Care Medicine
PROC: 5A1D00Z (ICD-10-PCS; principal; 2017-01-01)
DX: I16.0 Hypertensive urgency (principal); N18.6 End stage renal disease; I50.9 Heart failure, unspecified; E87.6 Hypokalemia; K59.00 Constipation, unspecified; I13.2 Hypertensive heart and chronic kidney disease with heart failure and with stage 5 chronic kidney disease, or end stage renal disease; F17.210 Nicotine dependence, cigarettes, uncomplicated; Z68.23 Body mass index [BMI] 23.0-23.9, adult

== ENCOUNTER 2017-02-27 18:00 | Inpatient (IN) | payer MEDICAID, OTHER ==
[2017-02-27 18:16] VITALS: BMI 24.3
[2017-02-27 19:27] LABS: BASO # 0.1 K/uL (0.0-0.2); BASO % 0.5 % (0.0-2.0); EOS # 0.3 K/uL (0.0-0.7); EOS % 1.8 % (0.0-4.0); HEMATOCRIT 38.1 % (34.0-47.0); LYMPH % 13.9 % (20.0-40.0); MEAN CELL VOLUME 86.7 fL (81.0-99.0); MEAN CORPUSCULAR HEMOGLOBIN 29.7 pg (27.0-31.0); MEAN CORPUSCULAR HGB CONC 34.2 g/dL (33.0-37.0); MONO # 0.6 K/uL (0.0-0.8); MONO % 4.1 % (0.0-10.0); RED CELL DISTRIBUTION WIDTH 14.9 % (11.5-14.5); WHITE BLOOD COUNT 14.6 K/uL (4.8-10.8)
[2017-02-27 19:31] LABS: RBC URINE < 1 /hpf (0-3); TRANSITIONAL EPITHIAL < 1 /hpf (0-3); URINE BACTERIA RARE (<OCC); URINE BILIRUBIN NEGATIVE (NEGATIVE); URINE BLOOD NEGATIVE (NEGATIVE); URINE COLOR Straw (YELLOW); URINE GLUCOSE (UA) NORMAL (Normal); URINE KETONE NEGATIVE (NEGATIVE); URINE LEUKOCYTE ESTERASE NEG Leu/uL (Negative); URINE PROTEIN 1+ mg/dL (NEGATIVE); URINE UROBILINOGEN NORMAL mg/dL (0.2-1.0); WBC URINE 1 /hpf (0-5)
[2017-02-27 19:37] LABS: POTASSIUM 3.6 mmol/L (3.6-5.2)
[2017-02-27 19:39] LABS: ALB/GLOB RATIO 1.7 (1.0-2.1); BILIRUBIN,TOTAL 0.4 mg/dL (0.2-1.3); TOTAL PROTEIN 6.3 g/dL (6.3-8.3)
[2017-02-27 19:40] LABS: CALCIUM 9.1 mg/dl (8.6-10.4)
[2017-02-27] MEDS ORDERED: Morphine 4 MG/ML VIAL ONE (20:06)
[2017-02-27] MEDS ORDERED: Enalaprilat 2.5 MG/2 ML IVP STA (20:39)
[2017-02-27] MEDS ORDERED: Enalaprilat 2.5 MG/2 ML ONE (21:07)
[2017-02-27] MEDS ORDERED: VANCOMYCIN 1 GM IVPB ONE (22:00)
[2017-02-27] MEDS ORDERED: DEXTROSE IVPB ONE (22:00)
--- NOTE | 2017-02-27 22:22 | C.PDOC ---
Time Seen by Provider: 02/27/17 19:39 Chief Complaint (Nursing): Abdominal Pain History Per: Patient Onset/Duration Of Symptoms: Days (1) Current Symptoms Are (Timing): Still Present Context: Other (Peritoneal Dialysis patient) Severity: Moderate Location Of Pain/Discomfort: Diffuse Quality Of Discomfort: Unable To Describe, "Pain" Associated Symptoms: Nausea, Vomiting Alleviating Factors: None Additional History Per: Prior Records Past Medical History Reviewed: Historical Data, Nursing Documentation, Vital Signs Vital Signs: Last Vital Signs Temp 99.4 F 02/27/17 21:07 Pulse 81 02/27/17 21:07 Resp 19 02/27/17 21:07 BP 170/110 H 02/27/17 21:07 Pulse Ox 100 02/27/17 21:07 - Medical History PMH: Anemia, Anxiety, CHF, Depression, HTN, Kidney Stones (left), End Stage Renal Disease (on PD), Chronic Kidney Disease Surgical History: Cholecystectomy - [employer] Procedures INSERT OF INFUSION DEV INTO PERITON CAV, PERC ENDO APPROACH (11/08/16) IRRIGATION OF PERITON CAV USING DIALYSATE, PERC APPROACH (11/08/16) PERFORMANCE OF URINARY FILTRATION, SINGLE (12/31/16) PLAIN RADIOGRAPHY OF BILE DUCTS USING OTHER CONTRAST (11/29/16) RESECTION OF GALLBLADDER, PERCUTANEOUS ENDOSCOPIC APPROACH (11/29/16) Family History: States: Unknown Family Hx - Social History Hx Alcohol Use: Yes Hx Substance Use: No - Immunization History Hx Tetanus Toxoid Vaccination: No Hx Influenza Vaccination: No Hx Pneumococcal Vaccination: No Review Of Systems Except As Marked, All Systems Reviewed And Found Negative. Constitutional: Negative for: Weakness Cardiovascular: Negative for: Chest Pain Respiratory: Negative for: Shortness of Breath Gastrointestinal: Positive for: Abdominal Pain. Negative for: Diarrhea, Melena , Hematochezia, Hematemesis Genitourinary: Negative for: Dysuria Musculoskeletal: Negative for: Neck Pain, Back Pain Skin: Negative for: Rash Neurological: Negative for: Weakness, Numbness Physical Exam - Physical Exam Appears: Non-toxic, Chronically Ill Skin: Normal Color, Warm, Dry, No Rash Head: Atraumatic, Normacephalic Eye(s): bilateral: PERRL, EOMI Neck: Normal ROM, Supple Cardiovascular: Rhythm Regular Respiratory: Normal Breath Sounds, No Accessory Muscle Use Gastrointestinal/Abdominal: Soft, Tenderness (nonspecific diffuse), No Distention, No Guarding, No Rebound, Other (PD catheter in place) Back: No CVA Tenderness Extremity: Normal ROM Neurological/Psych: Oriented x3, Normal Motor, Normal Sensation ED Course And Treatment - Laboratory Results Result Diagrams: 02/27/17 19:14 02/27/17 19:14 Interpretation Of Abnormal: Mild leukocytosis. Urine POC: Negative O2 Sat by Pulse Oximetry: 100 Pulse Ox Interpretation: Normal - Physician Consult Information Physician Contacted: Alphonse Ruvalcaba (Renal) Outcome Of Conversation: He gave orders to the nurse to test peritoneal fluid and give intraperitoneal antibiotics. Progress - Interventions Interventions:: Observation - Medications Administered Intravenous: Antihypertensive, Opiate - Data Reviewed Data Reviewed: Lab, Old records - Patient Status Patient status: Partially improved - Continuity of Care Discussed patient case with:: Patient, ED Nurse, PMD Discussed pt. case with underwriting consultant/specialty: Nephrology - Patient Plan Patient Plan: Admission, Telemetry Disposition Discussed With : Vanessa Orr Comment: He accepted pt on his service. Doctor Will See Patient In The: Hospital Counseled Patient/Family Regarding: Studies Performed, Diagnosis - Disposition Disposition: HOSPITALIZED Disposition Time: 22:27 Condition: GUARDED - Clinical Impression Clinical Impression: Abdominal pain, Patient on peritoneal dialysis, Uncontrolled hypertension
--- NOTE | 2017-02-27 23:42 | CP.PCM.HP ---
Past Patient History - Past Medical History & Family History Past Medical History?: Yes - Past Social History Smoking Status: Light Smoker < 10 Cigarettes Daily - CARDIAC Hx Congestive Heart Failure: Yes Hx Hypertension: Yes - PULMONARY Hx Respiratory Disorders: No - NEUROLOGICAL Hx Neurological Disorder: No - HEENT Hx HEENT Problems: No Other/Comment: eyeglasses for reading - RENAL Hx Chronic Kidney Disease: Yes Hx Kidney Stones: Yes (left) - ENDOCRINE/METABOLIC Hx Endocrine Disorders: No - HEMATOLOGICAL/ONCOLOGICAL Hx Anemia: Yes - INTEGUMENTARY Hx Dermatological Problems: No - MUSCULOSKELETAL/RHEUMATOLOGICAL Hx Falls: No - GASTROINTESTINAL Hx Gastrointestinal Disorders: No - GENITOURINARY/GYNECOLOGICAL Hx Genitourinary Disorders: No - PSYCHIATRIC Hx Anxiety: Yes Hx Depression: Yes Hx Substance Use: No - SURGICAL HISTORY Hx Cholecystectomy: Yes - ANESTHESIA Hx Anesthesia: Yes Hx Anesthesia Reactions: No Hx Malignant Hyperthermia: No Meds Allergies/Adverse Reactions: Allergies Allergy/AdvReac Type Severity Reaction Status Date / Time No Known Allergies Allergy Verified 02/27/17 18:15 Results - Vital Signs Recent Vital Signs: Last Vital Signs Temp 98.9 F 02/27/17 22:23 Pulse 78 02/27/17 23:40 Resp 18 02/27/17 23:40 BP 136/85 02/27/17 23:40 Pulse Ox 100 02/27/17 23:40 - Labs Result Diagrams: 02/27/17 19:14 02/27/17 19:14 Labs: Laboratory Results - last 24 hr 02/27/17 02/27/17 02/27/17 19:14 19:14 19:14 WBC 14.6 H D RBC 4.39 Hgb 13.0 D Hct 38.1 MCV 86.7 D MCH 29.7 MCHC 34.2 RDW 14.9 H Plt Count 303 MPV 8.0 Neut % (Auto) 79.7 H Lymph % (Auto) 13.9 L [place] % (Auto) 4.1 Eos % (Auto) 1.8 Baso % (Auto) 0.5 Neut # 11.6 H Lymph # 2.0 [place] # 0.6 Eos # 0.3 Baso # 0.1 Sodium 132 Potassium 3.6 Chloride 96 L Carbon Dioxide 24 Anion Gap 16 BUN 34 H Creatinine 3.8 H Est GFR ( Amer) 16 Est GFR (Non-Af Amer) 13 Random Glucose 98 Calcium 9.1 Total Bilirubin 0.4 AST 15 ALT 23 Alkaline Phosphatase 72 Total Protein 6.3 Albumin 4.0 Globulin 2.3 Albumin/Globulin Ratio 1.7 Lipase Urine Color Straw Urine Clarity Clear Urine pH 7.0 Ur Specific [place] 1.006 Urine Protein 1+ H Urine Glucose (UA) Normal Urine Ketones Negative Urine Blood Negative Urine Nitrate Negative Urine Bilirubin Negative Urine Urobilinogen Normal Ur Leukocyte Esterase Neg Urine WBC (Auto) 1 Urine RBC (Auto) < 1 Ur Squamous Epith Cells 3 Ur Transition Epith Cell < 1 Urine Bacteria Rare Urine HCG, Qual Negative 02/27/17 19:51 WBC RBC Hgb Hct MCV MCH MCHC RDW Plt Count MPV Neut % (Auto) Lymph % (Auto) [place] % (Auto) Eos % (Auto) Baso % (Auto) Neut # Lymph # [place] # Eos # Baso # Sodium Potassium Chloride Carbon Dioxide Anion Gap BUN Creatinine Est GFR ( Amer) Est GFR (Non-Af Amer) Random Glucose Calcium Total Bilirubin AST ALT Alkaline Phosphatase Total Protein Albumin Globulin Albumin/Globulin Ratio Lipase 201 Urine Color Urine Clarity Urine pH Ur Specific [place] Urine Protein Urine Glucose (UA) Urine Ketones Urine Blood Urine Nitrate Urine Bilirubin Urine Urobilinogen Ur Leukocyte Esterase Urine WBC (Auto) Urine RBC (Auto) Ur Squamous Epith Cells Ur Transition Epith Cell Urine Bacteria Urine HCG, Qual
[2017-02-28] MEDS ORDERED: [UNRECOGNIZED DRUG - OTHER] IP ONE (03:00)
[2017-02-28 09:14] LABS: BODY FLUID TYPE PERITONEAL
--- NOTE | 2017-02-28 10:09 | CP.PCM.CON ---
History of Present Illness - History of Present Illness History of Present Illness: 36 y/o HF with ESRD presents with cloudy PD fluid, abdominal pains, nausea, vomiting x 36 hours. Seen in ED; cell count sent and started on IP vancomycin Unclear if culture was sent. Had HTN related renal failure- on CCPD x 2-3 mos PMH: ESRD HTN PAIN MED DEPENDENCE PSH: PD CATHETER PLACEMENT PERMCATH PLACEMENT AND REMOVAL CHOLEYCYSTECTOMY Review of Systems - Constitutional Constitutional: As Per HPI, Chills, Fatigue, Fever, Weight Gain, Weakness - EENT Eyes: absent: As Per HPI, Blind Spots, Blurred Vision, Change in Vision, Decreased Night Vision, Diplopia, Discharge, Dry Eye, Exophthalmos, Floaters, Irritation, Itchy Eyes, Loss of Peripheral Vision, Pain, Photophobia, Requires Corrective Lenses, Sees Flashes, Spots in Vision, Tunnel Vision, Other Visual Disturbances, Loss of Vision, Other Ears: absent: As Per HPI, Decreased Hearing, Ear Discharge, Ear Pain, Tinnitus, Abnormal Hearing, Disequilibrium, Dizziness, Other Nose/Mouth/Throat: absent: As Per HPI, Epistaxis, Nasal Congestion, Nasal Discharge, Nasal Obstruction, Nasal Trauma, Nose Pain, Post Nasal Drip, Sinus Pain, Sinus Pressure, Bleeding Gums, Change in Voice, Dental Pain, Dry Mouth, Dysphagia, Halitosis, Hoarsness, Lip Swelling, Mouth Lesions, Mouth Pain, Odynophagia, Sore Throat, Throat Swelling, Tongue Swelling, Facial Pain, Neck Pain, Neck Mass, Other - Cardiovascular Cardiovascular: absent: As Per HPI, Acrocyanosis, Chest Pain, Chest Pain at Rest , Chest Pain with Activity, Claudication, Diaphoresis, Dyspnea, Dyspnea on Exertion, Edema, Irregular Heart Rhythm, Pain Radiating to Arm/Neck/Jaw, Leg Edema, Leg Ulcers, Lightheadedness, Orthopnea, Palpitations, Paroxysmal Nocturnal Dyspnea, Pedal Edema, Radiating Pain, Rapid Heart Rate, Slow Heart Rate, Syncope, Other - Respiratory Respiratory: Cough - Gastrointestinal Gastrointestinal: Abdominal Pain - Genitourinary Genitourinary: As Per HPI - Musculoskeletal Musculoskeletal: Muscle Cramps, Myalgias - Integumentary Integumentary: absent: As Per HPI, Acne, Alopecia, Bleeding Lesions, Change in Hair, Change in Nails, Change in Pigmentation, Changing Lesions, Dry Skin, Erythema, Furuncle, Hirsutism, Lesions, New Lesions, Non-Healing Lesions, Photosensitivity, Pruritus, Rash, Skin Pain, Skin Ulcer, Sores, Striae, Swelling , Unusual Bruising, Wounds, Jaundice, Other - Neurological Neurological: absent: As Per HPI, Abnormal Gait, Abnormal Hearing, Abnormal Movements, Abnormal Speech, Behavioral Changes, Burning Sensations, Confusion, Convulsions, Disequilibrium, Dizziness, Numbness, Focal Weakness, Frequent Falls , Headaches, Lack of Coordination, Loss of Vision, Memory Loss, Paresthesias, Radicular Pain, Restless Legs, Sensory Deficit, Syncope, Tingling, Tremor, Vertigo, Weakness, Other Visual Disturbances, Other - Psychiatric Psychiatric: Anxiety, Depression Past Patient History - Past Medical History & Family History Past Medical History?: Yes Past Family History: Reviewed and not pertinent - Past Social History Smoking Status: Current Some Days Smoker Chewing Tobacco Use: No Cigar Use: No Alcohol: Occasional Home Situation {Lives}: With Family - CARDIAC Hx Congestive Heart Failure: Yes Hx Hypertension: Yes - PULMONARY Hx Respiratory Disorders: No - NEUROLOGICAL Hx Neurological Disorder: No - HEENT Hx HEENT Problems: No Other/Comment: eyeglasses for reading - RENAL Hx Chronic Kidney Disease: Yes Hx Dialysis: Yes (ON CCPD) Hx Kidney Stones: Yes (left) - ENDOCRINE/METABOLIC Hx Endocrine Disorders: No - HEMATOLOGICAL/ONCOLOGICAL Hx Anemia: Yes - INTEGUMENTARY Hx Dermatological Problems: No - MUSCULOSKELETAL/RHEUMATOLOGICAL Hx Falls: No - GASTROINTESTINAL Hx Gastrointestinal Disorders: No - GENITOURINARY/GYNECOLOGICAL Hx Genitourinary Disorders: No - PSYCHIATRIC Hx Anxiety: Yes Hx Depression: Yes Hx Substance Use: Yes (PAIN MED ABUSE) - SURGICAL HISTORY Hx Cholecystectomy: Yes - ANESTHESIA Hx Anesthesia: Yes Hx Anesthesia Reactions: No Hx Malignant Hyperthermia: No Meds Allergies/Adverse Reactions: Allergies Allergy/AdvReac Type Severity Reaction Status Date / Time No Known Allergies Allergy Verified 02/27/17 18:15 - Medications Medications: Current Medications Amlodipine Besylate (Norvasc) 10 mg PO DAILY [facility] Clonidine HCl (Catapres) 0.2 mg PO BID [facility] Escitalopram Oxalate (Lexapro) 10 mg PO DAILY [facility] Ceftriaxone Sodium (Rocephin Iv 1 Gm Duplex) 50 mls @ 100 mls/hr IVPB DAILY [facility] Morphine Sulfate (Morphine) 2 mg IVP Q4 PRN PRN Reason: Pain, moderate (4-7) Pneumococcal Polyvalent Vaccine (Pneumovax 23 Vaccine) 0.5 ml IM .ONCE ONE Stop: 03/02/17 14:01 Physical Exam - Constitutional Appears: Non-toxic, Chronically Ill - Head Exam Head Exam: ATRAUMATIC, NORMAL INSPECTION - Eye Exam Eye Exam: EOMI, Normal appearance - Neck Exam Neck exam: Positive for: Normal Inspection. Negative for: Tenderness - Respiratory Exam Respiratory Exam: Decreased Breath Sounds, NORMAL BREATHING PATTERN - Cardiovascular Exam Cardiovascular Exam: REGULAR RHYTHM, +S1 - GI/Abdominal Exam GI & Abdominal Exam: Distended, Tenderness - Neurological Exam Neurological exam: Alert, CN II-XII Intact - Psychiatric Exam Psychiatric exam: Flat Affect - Skin Skin Exam: Dry, Warm Results - Vital Signs Recent Vital Signs: Last Vital Signs Temp 98.1 F 02/28/17 07:59 Pulse 65 02/28/17 07:59 Resp 20 02/28/17 07:59 BP 134/89 02/28/17 07:59 Pulse Ox 99 02/28/17 07:59 - Labs Result Diagrams: 02/27/17 19:14 02/27/17 19:14 Labs: Laboratory Results - last 24 hr 02/27/17 02/27/17 02/27/17 09:13 19:14 19:14 WBC 14.6 H D RBC 4.39 Hgb 13.0 D Hct 38.1 MCV 86.7 D MCH 29.7 MCHC 34.2 RDW 14.9 H Plt Count 303 MPV 8.0 Neut % (Auto) 79.7 H Lymph % (Auto) 13.9 L [place] % (Auto) 4.1 Eos % (Auto) 1.8 Baso % (Auto) 0.5 Neut # 11.6 H Lymph # 2.0 [place] # 0.6 Eos # 0.3 Baso # 0.1 Sodium Potassium Chloride Carbon Dioxide Anion Gap BUN Creatinine Est GFR ( Amer) Est GFR (Non-Af Amer) Random Glucose Calcium Total Bilirubin AST ALT Alkaline Phosphatase Total Protein Albumin Globulin Albumin/Globulin Ratio Lipase Urine Color Straw Urine Clarity Clear Urine pH 7.0 Ur Specific [place] 1.006 Urine Protein 1+ H Urine Glucose (UA) Normal Urine Ketones Negative Urine Blood Negative Urine Nitrate Negative Urine Bilirubin Negative Urine Urobilinogen Normal Ur Leukocyte Esterase Neg Urine WBC (Auto) 1 Urine RBC (Auto) < 1 Ur Squamous Epith Cells 3 Ur Transition Epith Cell < 1 Urine Bacteria Rare Urine HCG, Qual Negative Fluid Source Peritoneal 02/27/17 02/27/17 19:14 19:51 WBC RBC Hgb Hct MCV MCH MCHC RDW Plt Count MPV Neut % (Auto) Lymph % (Auto) [place] % (Auto) Eos % (Auto) Baso % (Auto) Neut # Lymph # [place] # Eos # Baso # Sodium 132 Potassium 3.6 Chloride 96 L Carbon Dioxide 24 Anion Gap 16 BUN 34 H Creatinine 3.8 H Est GFR ( Amer) 16 Est GFR (Non-Af Amer) 13 Random Glucose 98 Calcium 9.1 Total Bilirubin 0.4 AST 15 ALT 23 Alkaline Phosphatase 72 Total Protein 6.3 Albumin 4.0 Globulin 2.3 Albumin/Globulin Ratio 1.7 Lipase 201 Urine Color Urine Clarity Urine pH Ur Specific [place] Urine Protein Urine Glucose (UA) Urine Ketones Urine Blood Urine Nitrate Urine Bilirubin Urine Urobilinogen Ur Leukocyte Esterase Urine WBC (Auto) Urine RBC (Auto) Ur Squamous Epith Cells Ur Transition Epith Cell Urine Bacteria Urine HCG, Qual Fluid Source Assessment & Plan (1) Benign hypertensive kidney disease with end stage renal disease Status: Acute (2) Acute peritonitis Status: Acute - Assessment and Plan (Free Text) Plan: NEEDS PD FLUID CULTURE CHECK CELL COUNT IP ANTIBIOTICS CONTINUE PD
[2017-02-28] MEDS: cefTRIAXone IV 1 gm in Dextros 50 ML IVPB SCH (10:23)
[2017-02-28 10:38] LABS: BF GROSS APPEARANCE SL CLOUDY (CLEAR)
[2017-02-28] MEDS: DEXTROSE IP SCH (12:00)
[2017-02-28] MEDS: GENTAMICIN 80 MG IP SCH (12:00)
--- NOTE | 2017-02-28 14:57 | CP.PCM.PN ---
Subjective - Date & Time of Evaluation Date of Evaluation: 02/28/17 Time of Evaluation: 09:00 - Subjective Subjective: clinically same Objective - Vital Signs/Intake and Output Vital Signs (last 24 hours): Temp Pulse Resp BP Pulse Ox 98.1 F 65 20 134/89 99 02/28/17 07:59 02/28/17 07:59 02/28/17 07:59 02/28/17 07:59 02/28/17 07:59 - Medications Medications: Current Medications Amlodipine Besylate (Norvasc) 10 mg PO DAILY [facility] Last Admin: 02/28/17 10:23 Dose: 10 mg Clonidine HCl (Catapres) 0.2 mg PO BID [facility] Last Admin: 02/28/17 10:23 Dose: 0.2 mg Escitalopram Oxalate (Lexapro) 10 mg PO DAILY [facility] Last Admin: 02/28/17 10:23 Dose: 10 mg Ceftriaxone Sodium (Rocephin Iv 1 Gm Duplex) 50 mls @ 100 mls/hr IVPB DAILY [facility] Last Admin: 02/28/17 10:23 Dose: 100 mls/hr Gentamicin Sulfate 80 mg/ (Peritoneal Dialysis Solution) 2,002 mls @ 100 mls/ hr IP Q24H [facility] Last Admin: 02/28/17 12:00 Dose: 100 mls/hr Morphine Sulfate (Morphine) 2 mg IVP Q4 PRN PRN Reason: Pain, moderate (4-7) Last Admin: 02/28/17 14:47 Dose: 2 mg Pneumococcal Polyvalent Vaccine (Pneumovax 23 Vaccine) 0.5 ml IM .ONCE ONE Stop: 03/02/17 14:01 - Labs Labs: 02/27/17 19:14 02/27/17 19:14 Assessment and Plan - Assessment and Plan (Free Text) Plan: Continue IV antibiotic as ordered Rocephin continue vancomycin in the peritoneal liquid gentamicin and peritoneal liquid Morphine Follow-up with pulmonary Follow-up with the pulmonary fluid culture Discussed with the staff
[2017-03-01] MEDS: cefTRIAXone IV 1 gm in Dextros 50 ML IVPB SCH (09:52)
[2017-03-01] MEDS: GENTAMICIN 80 MG IP SCH (12:15)
[2017-03-01] MEDS: DEXTROSE IP SCH (12:15)
--- NOTE | 2017-03-01 17:10 | CP.PCM.PN ---
Subjective - Date & Time of Evaluation Date of Evaluation: 03/01/17 Time of Evaluation: 09:00 - Subjective Subjective: clinically same Objective - Vital Signs/Intake and Output Vital Signs (last 24 hours): Temp Pulse Resp BP Pulse Ox 98.0 F 55 L 20 126/79 100 03/01/17 15:00 03/01/17 15:00 03/01/17 15:00 03/01/17 15:00 03/01/17 15:00 - Medications Medications: Current Medications Amlodipine Besylate (Norvasc) 10 mg PO DAILY [facility] Last Admin: 03/01/17 09:52 Dose: 10 mg Clonidine HCl (Catapres) 0.2 mg PO BID [facility] Last Admin: 03/01/17 09:51 Dose: 0.2 mg Escitalopram Oxalate (Lexapro) 10 mg PO DAILY [facility] Last Admin: 03/01/17 09:51 Dose: 10 mg Ceftriaxone Sodium (Rocephin Iv 1 Gm Duplex) 50 mls @ 100 mls/hr IVPB DAILY [facility] Last Admin: 03/01/17 09:52 Dose: 100 mls/hr Gentamicin Sulfate 80 mg/ (Peritoneal Dialysis Solution) 2,002 mls @ 100 mls/ hr IP Q24H [facility] Last Admin: 03/01/17 12:15 Dose: 100 mls/hr Morphine Sulfate (Morphine) 2 mg IVP Q4 PRN PRN Reason: Pain, moderate (4-7) Last Admin: 03/01/17 14:36 Dose: 2 mg Pneumococcal Polyvalent Vaccine (Pneumovax 23 Vaccine) 0.5 ml IM .ONCE ONE Stop: 03/02/17 14:01 - Labs Labs: 02/27/17 19:14 02/27/17 19:14 - Constitutional Appears: Well - Head Exam Head Exam: ATRAUMATIC, NORMAL INSPECTION, NORMOCEPHALIC - Eye Exam Eye Exam: EOMI, Normal appearance, PERRL Pupil Exam: NORMAL ACCOMODATION, PERRL - ENT Exam ENT Exam: Mucous Membranes Moist, Normal Exam - Neck Exam Neck Exam: Full ROM, Normal Inspection. absent: Lymphadenopathy - Respiratory Exam Respiratory Exam: Decreased Breath Sounds - Cardiovascular Exam Cardiovascular Exam: REGULAR RHYTHM, +S1, +S2 - GI/Abdominal Exam GI & Abdominal Exam: Soft, Diminished Bowel Sounds - Rectal Exam Rectal Exam: Deferred
[2017-03-02] MEDS: cefTRIAXone IV 1 gm in Dextros 50 ML IVPB SCH (09:36)
--- NOTE | 2017-03-02 12:25 | CP.PCM.PN ---
Subjective - Date & Time of Evaluation Date of Evaluation: 03/02/17 Time of Evaluation: 12:21 - Subjective Subjective: Alert; less abdominal freeman PD cell count consistent with peritonitis PD fluid clearer as per patient Still PD cultures pending HTN reasonably controlled No new c/o f, chills, nausea, vomiting, HAs, CPs Objective - Vital Signs/Intake and Output Vital Signs (last 24 hours): Temp Pulse Resp BP Pulse Ox 97.2 F L 70 20 144/96 H 100 03/02/17 08:35 03/02/17 08:35 03/02/17 08:35 03/02/17 08:35 03/02/17 08:35 - Medications Medications: Current Medications Amlodipine Besylate (Norvasc) 10 mg PO DAILY [facility] Last Admin: 03/02/17 09:35 Dose: 10 mg Clonidine HCl (Catapres) 0.2 mg PO BID [facility] Last Admin: 03/02/17 09:35 Dose: 0.2 mg Escitalopram Oxalate (Lexapro) 10 mg PO DAILY [facility] Last Admin: 03/02/17 09:36 Dose: 10 mg Ceftriaxone Sodium (Rocephin Iv 1 Gm Duplex) 50 mls @ 100 mls/hr IVPB DAILY [facility] Last Admin: 03/02/17 09:36 Dose: 100 mls/hr Gentamicin Sulfate 80 mg/ (Peritoneal Dialysis Solution) 2,002 mls @ 100 mls/ hr IP MWF [facility] Morphine Sulfate (Morphine) 2 mg IVP Q4 PRN PRN Reason: Pain, moderate (4-7) Last Admin: 03/02/17 10:49 Dose: 2 mg Pneumococcal Polyvalent Vaccine (Pneumovax 23 Vaccine) 0.5 ml IM .ONCE ONE Stop: 03/02/17 14:01 - Labs Labs: 02/27/17 19:14 02/27/17 19:14 - Constitutional Appears: No Acute Distress, Chronically Ill - Head Exam Head Exam: ATRAUMATIC, NORMAL INSPECTION - Eye Exam Eye Exam: EOMI, Normal appearance - Neck Exam Neck Exam: Normal Inspection. absent: Tenderness - Respiratory Exam Respiratory Exam: Clear to Ausculation Bilateral, NORMAL BREATHING PATTERN - Cardiovascular Exam Cardiovascular Exam: REGULAR RHYTHM, +S1 - GI/Abdominal Exam GI & Abdominal Exam: Soft. absent: Tenderness - Extremities Exam Extremities Exam: Normal Inspection. absent: Tenderness - Neurological Exam Neurological Exam: Awake, CN II-XII Intact - Skin Skin Exam: Dry, Warm Assessment and Plan (1) Benign hypertensive kidney disease with end stage renal disease Status: Acute (2) Acute peritonitis Status: Acute - Assessment and Plan (Free Text) Plan: Continue IP ABs- change gentamicin 80 mg MWF; vanco IP biw Await cultures reports Same BP meds
[2017-03-02] MEDS ORDERED: VANCOMYCIN 1 GM IP STA (13:00)
[2017-03-02] MEDS ORDERED: DEXTROSE IP STA (13:00)
[2017-03-02] MEDS ORDERED: Pneumococcal 23-Valent Vaccine IM ONE (14:00)
[2017-03-02 16:19] VITALS: PULSE 61; TEMP 97.9
--- NOTE | 2017-03-02 18:57 | CP.PCM.PN ---
Subjective - Date & Time of Evaluation Date of Evaluation: 03/02/17 Time of Evaluation: 10:00 - Subjective Subjective: clinically same Objective - Vital Signs/Intake and Output Vital Signs (last 24 hours): Temp Pulse Resp BP Pulse Ox 97.9 F 61 20 119/79 96 03/02/17 16:14 03/02/17 16:14 03/02/17 16:14 03/02/17 16:14 03/02/17 16:14 Intake and Output: 03/02/17 03/02/17 06:59 18:59 Intake Total 50 Balance 50 - Medications Medications: Current Medications Amlodipine Besylate (Norvasc) 10 mg PO DAILY [facility] Last Admin: 03/02/17 09:35 Dose: 10 mg Clonidine HCl (Catapres) 0.2 mg PO BID [facility] Last Admin: 03/02/17 17:08 Dose: 0.2 mg Escitalopram Oxalate (Lexapro) 10 mg PO DAILY [facility] Last Admin: 03/02/17 09:36 Dose: 10 mg Ceftriaxone Sodium (Rocephin Iv 1 Gm Duplex) 50 mls @ 100 mls/hr IVPB DAILY [facility] Last Admin: 03/02/17 09:36 Dose: 100 mls/hr Gentamicin Sulfate 80 mg/ (Peritoneal Dialysis Solution) 2,002 mls @ 100 mls/ hr IP MWF@2100 [facility] Morphine Sulfate (Morphine) 2 mg IVP Q4 PRN PRN Reason: Pain, moderate (4-7) Last Admin: 03/02/17 17:08 Dose: 2 mg - Labs Labs: 02/27/17 19:14 02/27/17 19:14 - Constitutional Appears: Well - Head Exam Head Exam: ATRAUMATIC, NORMAL INSPECTION, NORMOCEPHALIC - Eye Exam Eye Exam: EOMI, Normal appearance, PERRL Pupil Exam: NORMAL ACCOMODATION, PERRL - ENT Exam ENT Exam: Mucous Membranes Moist, Normal Exam - Neck Exam Neck Exam: Full ROM, Normal Inspection. absent: Lymphadenopathy - Respiratory Exam Respiratory Exam: Decreased Breath Sounds - Cardiovascular Exam Cardiovascular Exam: REGULAR RHYTHM, +S1, +S2 - GI/Abdominal Exam GI & Abdominal Exam: Soft, Diminished Bowel Sounds - Rectal Exam Rectal Exam: Deferred
[2017-03-02] MEDS ORDERED: GENTAMICIN 80 MG IP SCH (21:00)
[2017-03-02] MEDS ORDERED: DEXTROSE IP SCH (21:00)
[2017-03-03 08:25] VITALS: BP 133/84; RESP 20
[2017-03-03 09:39] VITALS: O2SAT 99
[2017-03-03] MEDS: cefTRIAXone IV 1 gm in Dextros 50 ML IVPB SCH (09:42)
[2017-03-03 10:42] LABS: HEMATOCRIT 37.1 % (34.0-47.0); MEAN CORPUSCULAR HEMOGLOBIN 30.1 pg (27.0-31.0); MEAN CORPUSCULAR HGB CONC 34.2 g/dL (33.0-37.0); MEAN PLATELET VOLUME 7.9 fL (7.2-11.7); RED CELL DISTRIBUTION WIDTH 14.5 % (11.5-14.5); WHITE BLOOD COUNT 8.2 K/uL (4.8-10.8)
[2017-03-03 10:54] LABS: POTASSIUM 3.7 mmol/L (3.6-5.2)
[2017-03-03 10:56] LABS: BILIRUBIN,TOTAL 0.2 mg/dL (0.2-1.3)
[2017-03-03 10:57] LABS: PHOSPHOROUS 3.1 mg/dL (2.5-4.5); TOTAL PROTEIN 6.1 g/dL (6.3-8.3)
[2017-03-03 11:00] LABS: VANCOMYCIN RANDOM 13.6 ug/mL
--- NOTE | 2017-03-03 13:17 | CP.PCM.PN ---
Subjective - Date & Time of Evaluation Date of Evaluation: 03/03/17 Time of Evaluation: 13:15 - Subjective Subjective: pt dressed already, ready to leave denies any abd pain sob chest pain cough fevers chills nausea vomiting diarrhea pd fluid apparently clearing up cultures neg so far Objective - Vital Signs/Intake and Output Vital Signs (last 24 hours): Temp Pulse Resp BP Pulse Ox 97.9 F 61 20 133/84 99 03/03/17 08:23 03/03/17 08:23 03/03/17 08:23 03/03/17 08:23 03/03/17 09:00 - Medications Medications: Current Medications Amlodipine Besylate (Norvasc) 10 mg PO DAILY [facility] Last Admin: 03/03/17 09:40 Dose: 10 mg Clonidine HCl (Catapres) 0.2 mg PO BID [facility] Last Admin: 03/02/17 17:08 Dose: 0.2 mg Escitalopram Oxalate (Lexapro) 10 mg PO DAILY [facility] Last Admin: 03/03/17 09:40 Dose: 10 mg Ceftriaxone Sodium (Rocephin Iv 1 Gm Duplex) 50 mls @ 100 mls/hr IVPB DAILY [facility] Last Admin: 03/03/17 09:42 Dose: 100 mls/hr Gentamicin Sulfate 80 mg/ (Peritoneal Dialysis Solution) 2,002 mls @ 100 mls/ hr IP MWF@2100 [facility] Last Admin: 03/02/17 21:11 Dose: 100 mls/hr Morphine Sulfate (Morphine) 2 mg IVP Q4 PRN PRN Reason: Pain, moderate (4-7) Last Admin: 03/03/17 06:32 Dose: 2 mg - Labs Labs: 03/03/17 10:31 03/03/17 10:31 - Constitutional Appears: Non-toxic, No Acute Distress, Chronically Ill - Head Exam Head Exam: NORMAL INSPECTION - Eye Exam Eye Exam: Normal appearance - ENT Exam ENT Exam: Mucous Membranes Moist, Normal Exam - Neck Exam Neck Exam: Normal Inspection - Respiratory Exam Respiratory Exam: Clear to Ausculation Bilateral, NORMAL BREATHING PATTERN - Cardiovascular Exam Cardiovascular Exam: REGULAR RHYTHM, RRR - GI/Abdominal Exam GI & Abdominal Exam: Distended, Soft - Extremities Exam Extremities Exam: Normal Inspection Assessment and Plan (1) Abdominal pain Status: Acute (2) Acute peritonitis Status: Acute (3) Benign hypertensive kidney disease with end stage renal disease Status: Acute (4) Patient on peritoneal dialysis Status: Acute (5) Uncontrolled hypertension Status: Acute - Assessment and Plan (Free Text) Assessment: ok to dc home spoke w/ pd nurse - to arrange outpatient IP gentamicin and vancomycin. Pt to go to dialysis center tomorrow bp acceptable
--- NOTE | 2017-03-03 14:27 | CP.PCM.PN ---
Subjective - Date & Time of Evaluation Date of Evaluation: 03/03/17 Time of Evaluation: 14:25 - Subjective Subjective: PT SEEN AND EXAMINED TODAY DENIES ANY PAIN ADMITTED FOR PERITONITIS ON PD PT CLEARED FOR D/C PER DR. Catherine BURNS AND DR. PARKER/DR. MATOS SPOKE TO PD RN AT [facility] - GENTAMICIN DAILY AND VANCOMYCIN M/W/F FOR 2 WEEKS F/U WITH PMD AND DR PARKER Objective - Vital Signs/Intake and Output Vital Signs (last 24 hours): Temp Pulse Resp BP Pulse Ox 97.9 F 61 20 133/84 99 03/03/17 08:23 03/03/17 08:23 03/03/17 08:23 03/03/17 08:23 03/03/17 09:00 - Medications Medications: Current Medications Amlodipine Besylate (Norvasc) 10 mg PO DAILY [facility] Last Admin: 03/03/17 09:40 Dose: 10 mg Clonidine HCl (Catapres) 0.2 mg PO BID [facility] Last Admin: 03/03/17 10:00 Dose: Not Given Escitalopram Oxalate (Lexapro) 10 mg PO DAILY [facility] Last Admin: 03/03/17 09:40 Dose: 10 mg Ceftriaxone Sodium (Rocephin Iv 1 Gm Duplex) 50 mls @ 100 mls/hr IVPB DAILY [facility] Last Admin: 03/03/17 09:42 Dose: 100 mls/hr Gentamicin Sulfate 80 mg/ (Peritoneal Dialysis Solution) 2,002 mls @ 100 mls/ hr IP MWF@2100 [facility] Last Admin: 03/02/17 21:11 Dose: 100 mls/hr Morphine Sulfate (Morphine) 2 mg IVP Q4 PRN PRN Reason: Pain, moderate (4-7) Last Admin: 03/03/17 06:32 Dose: 2 mg - Labs Labs: 03/03/17 10:31 03/03/17 10:31
== END 2017-03-03 14:57 | disposition home or self-care (01) | DRG 543 ==
LOC: C.ER 18:00 → C.5S 22:31
PROVIDERS: ADMIT Internal Medicine Nephrology; ATTEND Internal Medicine Nephrology
PROC: 3E1M39Z Irrigation of Peritoneal Cavity using Dialysate, Percutaneous Approach (ICD-10-PCS; principal; 2017-03-03)
DX: T82.7XXA Infection and inflammatory reaction due to other cardiac and vascular devices, implants and grafts, initial encounter (principal); K65.0 Generalized (acute) peritonitis; N18.6 End stage renal disease; I13.2 Hypertensive heart and chronic kidney disease with heart failure and with stage 5 chronic kidney disease, or end stage renal disease; I50.9 Heart failure, unspecified; Y84.1 Kidney dialysis as the cause of abnormal reaction of the patient, or of later complication, without mention of misadventure at the time of the procedure; Z87.891 Personal history of nicotine dependence; Z87.442 Personal history of urinary calculi; Z90.49 Acquired absence of other specified parts of digestive tract; Z99.2 Dependence on renal dialysis

== ENCOUNTER 2017-03-25 14:11 | Inpatient (IN) | payer OTHER ==
[2017-03-25 14:36] VITALS: BMI 25.0
[2017-03-25] MEDS ORDERED: Sodium Chloride 0.9% 500 ML IV ONE ×2 (14:40→15:24)
--- NOTE | 2017-03-25 14:51 | C.PDOC ---
History Of Present Illness 36 y/o female, past medical history includes renal failure, on peritoneal dialyis, presents to ED with c/o abdominal pain associated with nausea, vomiting (bilious vomitus), diarrhea, and low grade fever. Patient states she was recently diagnosed with peritoneal infection and has been using abx fluid via PD at home. Patient notes she was seen by Dr. Manjit Orr in his office today who referred her to the ER. Patient describes abdominal pain as diffuse, worsening with every step she takes. Review of prior records show pt was admitted to the hospital for peritoneal infection on 02/27, treated intraperitoneally prior to discharge home. Time Seen by Provider: 03/25/17 14:35 Chief Complaint (Nursing): Abdominal Pain History Per: Patient History/Exam Limitations: no limitations Onset/Duration Of Symptoms: Days Current Symptoms Are (Timing): Still Present Location Of Pain/Discomfort: Diffuse Quality Of Discomfort: "Pain" Associated Symptoms: Fever, Nausea, Vomiting, Diarrhea Recent travel outside of the [place]: No Past Medical History Reviewed: Historical Data, Nursing Documentation, Vital Signs Vital Signs: Last Vital Signs Temp 98.8 F 03/25/17 16:10 Pulse 89 03/25/17 16:10 Resp 21 03/25/17 16:10 BP 177/110 H 03/25/17 16:10 Pulse Ox 100 03/25/17 16:10 - Medical History PMH: Anemia, Anxiety, CHF, Depression, HTN, Kidney Stones (left), End Stage Renal Disease (on PD), Chronic Kidney Disease Surgical History: Cholecystectomy - [facility] Procedures INSERT OF INFUSION DEV INTO PERITON CAV, PERC ENDO APPROACH (11/08/16) IRRIGATION OF PERITON CAV USING DIALYSATE, PERC APPROACH (02/27/17) PERFORMANCE OF URINARY FILTRATION, SINGLE (12/31/16) PLAIN RADIOGRAPHY OF BILE DUCTS USING OTHER CONTRAST (11/29/16) RESECTION OF GALLBLADDER, PERCUTANEOUS ENDOSCOPIC APPROACH (11/29/16) Family History: States: Unknown Family Hx - Social History Hx Alcohol Use: No Hx Substance Use: No - Immunization History Hx Tetanus Toxoid Vaccination: No Hx Influenza Vaccination: No Hx Pneumococcal Vaccination: No Review Of Systems Except As Marked, All Systems Reviewed And Found Negative. Constitutional: Positive for: Fever Cardiovascular: Negative for: Chest Pain, Palpitations Respiratory: Negative for: Cough, Shortness of Breath Gastrointestinal: Positive for: Nausea, Vomiting, Abdominal Pain, Diarrhea Genitourinary: Negative for: Dysuria Skin: Negative for: Rash Neurological: Negative for: Headache, Dizziness Physical Exam - Physical Exam Appears: Non-toxic, No Acute Distress Skin: Normal Color, Warm, Dry Head: Atraumatic, Normacephalic Oral Mucosa: Moist Chest: Symmetrical Cardiovascular: Rhythm Regular Respiratory: Normal Breath Sounds, No Rales, No Rhonchi, No Wheezing Gastrointestinal/Abdominal: Bowel Sounds (present), Soft, Tenderness (diffuse) Back: Normal Inspection Extremity: Normal ROM, Capillary Refill (< 2 sec. ) Neurological/Psych: Oriented x3, Normal Speech, Normal Cognition ED Course And Treatment - Laboratory Results Result Diagrams: 03/25/17 14:58 03/25/17 14:58 Lab Interpretation: No Acute Changes (chronic renal failure) O2 Sat by Pulse Oximetry: 97 (RA) Pulse Ox Interpretation: Normal Progress Note: Patient treated with IV Labetolol in ED for elevated BP. Reevaluation Time: 16:03 Reassessment Condition: Improved - Physician Consult Information Time Consulting Physician Contacted: 16:39 Physician Contacted: Vanessa Orr Outcome Of Conversation: Patient to be admitted for treatment of abdominal pain and possible recurrent peritonitis as well as uncontrolled hypertension. Disposition - Disposition Disposition: HOSPITALIZED Disposition Time: 16:40 Condition: STABLE - Clinical Impression Clinical Impression: Abdominal pain, Patient on peritoneal dialysis, ESRD (end stage renal disease) , Hypertensive urgency - Scribe Statement The provider has reviewed the documentation as recorded by the Funmi Melton All medical record entries made by the Funmi were at my direction and personally dictated by me. I have reviewed the chart and agree that the record accurately reflects my personal performance of the history, physical exam, medical decision making, and the department course for this patient. I have also personally directed, reviewed, and agree with the discharge instructions and disposition.
[2017-03-25] MEDS ORDERED: Labetalol 25mg/5ml Syringe IV STA (15:02)
[2017-03-25 15:09] LABS: BASO % 0.5 % (0.0-2.0); EOS # 0.2 K/uL (0.0-0.7); EOS % 1.6 % (0.0-4.0); HEMATOCRIT 39.4 % (34.0-47.0); LYMPH # 1.3 K/uL (1.0-4.3); LYMPH % 12.5 % (20.0-40.0); MEAN CELL VOLUME 88.8 fL (81.0-99.0); MEAN CORPUSCULAR HGB CONC 33.8 g/dL (33.0-37.0); MONO # 0.4 K/uL (0.0-0.8); MONO % 4.3 % (0.0-10.0); NRBC % 0.1 % (0.0-2.0); RED CELL DISTRIBUTION WIDTH 14.5 % (11.5-14.5); WHITE BLOOD COUNT 10.3 K/uL (4.8-10.8)
[2017-03-25 15:10] LABS: RBC URINE < 1 /hpf (0-3); URINE BILIRUBIN NEGATIVE (NEGATIVE); URINE BLOOD NEGATIVE (NEGATIVE); URINE COLOR Yellow (YELLOW); URINE GLUCOSE (UA) 1+ mg/dL (Normal); URINE KETONE TRACE mg/dL (NEGATIVE); URINE LEUKOCYTE ESTERASE NEG Leu/uL (Negative); URINE PROTEIN 2+ mg/dL (NEGATIVE); URINE UROBILINOGEN NORMAL mg/dL (0.2-1.0); WBC URINE 2 /hpf (0-5)
[2017-03-25] MEDS ORDERED: Labetalol 25mg/5ml Syringe ONE (15:23)
[2017-03-25 15:48] LABS: BILIRUBIN,TOTAL 0.8 mg/dL (0.2-1.3); CALCIUM 8.7 mg/dl (8.6-10.4); POTASSIUM 3.4 mmol/L (3.6-5.2); TOTAL PROTEIN 6.1 g/dL (6.3-8.3)
[2017-03-25 15:51] LABS: ALB/GLOB RATIO 1.7 (1.0-2.1)
--- NOTE | 2017-03-25 19:48 | CP.PCM.HP ---
History of Present Illness - History of Present Illness History of Present Illness: A 36-year-old female with PMHanemia, anxiety, CHF, depression, HTN, renal stone , ESRD [on peritoneal dialysis] presents to the ER for C/Oabdominal pain. C/Oabdominal pain for 3-4 days. Insidious in onset, progressive, diffuse, weak , generalized, all over the abdomen, intensity of 6/10, partly relieved by medications. C/Onausea for 2-4 days. C/Ovomiting for 3-4 days. 2-3 episodes per day, containing bilious vomitus admixed with food particles. Nonbloody. C/Odiarrhea for 3-4 days, loose watery, 3-4 times per day. C/Ofever for 3-4 days. Low-grade, mild, without chills or rigors. Patient admits that she was recently treated for peritoneal infection. Present on Admission - Present on Admission Any Indicators Present on Admission: No Past Patient History - Past Medical History & Family History Past Medical History?: Yes - Past Social History Smoking Status: Light Smoker < 10 Cigarettes Daily - CARDIAC Hx Congestive Heart Failure: Yes Hx Hypertension: Yes - PULMONARY Hx Respiratory Disorders: No - NEUROLOGICAL Hx Neurological Disorder: No - HEENT Hx HEENT Problems: No Other/Comment: eyeglasses for reading - RENAL Hx Chronic Kidney Disease: Yes Hx Kidney Stones: Yes (left) - ENDOCRINE/METABOLIC Hx Endocrine Disorders: No - HEMATOLOGICAL/ONCOLOGICAL Hx Anemia: Yes - INTEGUMENTARY Hx Dermatological Problems: No - MUSCULOSKELETAL/RHEUMATOLOGICAL Hx Falls: No - GASTROINTESTINAL Hx Gastrointestinal Disorders: No - GENITOURINARY/GYNECOLOGICAL Hx Genitourinary Disorders: No - PSYCHIATRIC Hx Anxiety: Yes Hx Depression: Yes Hx Substance Use: No - SURGICAL HISTORY Hx Cholecystectomy: Yes - ANESTHESIA Hx Anesthesia: Yes Hx Anesthesia Reactions: No Hx Malignant Hyperthermia: No Meds Allergies/Adverse Reactions: Allergies Allergy/AdvReac Type Severity Reaction Status Date / Time No Known Allergies Allergy Verified 02/27/17 18:15 Physical Exam - Constitutional Appears: Well - Head Exam Head Exam: ATRAUMATIC, NORMAL INSPECTION, NORMOCEPHALIC - Eye Exam Eye Exam: EOMI, Normal appearance, PERRL Pupil Exam: NORMAL ACCOMODATION, PERRL - ENT Exam ENT Exam: Mucous Membranes Moist, Normal Exam - Neck Exam Neck exam: Positive for: Normal Inspection - Respiratory Exam Respiratory Exam: Decreased Breath Sounds - Cardiovascular Exam Cardiovascular Exam: REGULAR RHYTHM, +S1, +S2 - GI/Abdominal Exam GI & Abdominal Exam: Diminished Bowel Sounds, Soft - Rectal Exam Rectal Exam: Deferred Results - Vital Signs Recent Vital Signs: Last Vital Signs Temp 98.8 F 03/25/17 16:10 Pulse 89 03/25/17 19:41 Resp 16 03/25/17 19:41 BP 181/102 H 03/25/17 19:41 Pulse Ox 98 03/25/17 19:41 - Labs Result Diagrams: 03/25/17 14:58 03/25/17 14:58 Labs: Laboratory Results - last 24 hr 03/25/17 03/25/17 03/25/17 14:41 14:58 14:58 WBC 10.3 RBC 4.43 Hgb 13.3 Hct 39.4 MCV 88.8 MCH 30.0 MCHC 33.8 RDW 14.5 Plt Count 280 MPV 8.0 Neut % (Auto) 81.1 H Lymph % (Auto) 12.5 L [place] % (Auto) 4.3 Eos % (Auto) 1.6 Baso % (Auto) 0.5 Neut # 8.3 H Lymph # 1.3 [place] # 0.4 Eos # 0.2 Baso # 0.0 Sodium 134 Potassium 3.4 L Chloride 99 Carbon Dioxide 23 Anion Gap 15 BUN 33 H Creatinine 4.5 H Est GFR ( Amer) 13 Est GFR (Non-Af Amer) 11 Random Glucose 104 Calcium 8.7 Total Bilirubin 0.8 AST 17 ALT 19 Alkaline Phosphatase 76 Total Protein 6.1 L Albumin 3.8 Globulin 2.3 Albumin/Globulin Ratio 1.7 Lipase 79 Urine Color Yellow Urine Clarity Hazy Urine pH 7.0 Ur Specific [place] 1.016 Urine Protein 2+ H Urine Glucose (UA) 1+ Urine Ketones Trace Urine Blood Negative Urine Nitrate Negative Urine Bilirubin Negative Urine Urobilinogen Normal Ur Leukocyte Esterase Neg Urine WBC (Auto) 2 Urine RBC (Auto) < 1 Ur Squamous Epith Cells 7 H Urine HCG, Qual Negative
--- NOTE | 2017-03-26 09:05 | CP.PCM.PN ---
Subjective - Date & Time of Evaluation Date of Evaluation: 03/26/17 Time of Evaluation: 10:20 - Subjective Subjective: clinically same Objective - Vital Signs/Intake and Output Vital Signs (last 24 hours): Temp Pulse Resp BP Pulse Ox 97.5 F L 63 20 159/96 H 98 03/26/17 07:00 03/26/17 07:00 03/26/17 07:00 03/26/17 07:00 03/26/17 07:00 Intake and Output: 03/26/17 03/26/17 06:59 18:59 Intake Total 200 Balance 200 - Medications Medications: Current Medications Amlodipine Besylate (Norvasc) 10 mg PO DAILY [facility] Aspirin (Ecotrin) 81 mg PO DAILY [facility] Cinacalcet (Sensipar) 30 mg PO DAILY [facility] Clonidine HCl (Catapres) 0.2 mg PO BID [facility] Last Admin: 03/25/17 21:19 Dose: 0.2 mg Diclofenac Sodium (Voltaren) 75 mg PO BID PRN PRN Reason: ` Escitalopram Oxalate (Lexapro) 10 mg PO HS [facility] Last Admin: 03/26/17 00:38 Dose: 10 mg Ferrous Sulfate (Feosol) 325 mg PO DAILY [facility] Ceftriaxone Sodium (Rocephin Iv 1 Gm Duplex) 50 mls @ 100 mls/hr IVPB DAILY [facility] Vancomycin/Sodium Chloride (Vancomycin 1 Gm/Ns 200 Ml) 1 gm in 200 mls @ 133 mls/hr IVPB MWF [facility] Stop: 04/01/17 09:01 Lisinopril (Zestril) 20 mg PO DAILY [facility] Minoxidil (Minoxidil) 5 mg PO BID [facility] Morphine Sulfate (Morphine) 2 mg IVP Q4 PRN PRN Reason: Pain, moderate (4-7) Last Admin: 03/26/17 06:35 Dose: 2 mg - Labs Labs: 03/25/17 14:58 03/25/17 14:58 - Constitutional Appears: Well - Head Exam Head Exam: ATRAUMATIC, NORMAL INSPECTION, NORMOCEPHALIC - Eye Exam Eye Exam: EOMI, Normal appearance, PERRL Pupil Exam: NORMAL ACCOMODATION, PERRL - ENT Exam ENT Exam: Mucous Membranes Moist, Normal Exam - Neck Exam Neck Exam: Full ROM, Normal Inspection. absent: Lymphadenopathy - Respiratory Exam Respiratory Exam: Decreased Breath Sounds - Cardiovascular Exam Cardiovascular Exam: REGULAR RHYTHM, +S1, +S2 - GI/Abdominal Exam GI & Abdominal Exam: Soft, Diminished Bowel Sounds - Rectal Exam Rectal Exam: Deferred - Extremities Exam Extremities Exam: Full ROM, Normal Capillary Refill, Normal Inspection. absent : Joint Swelling, Pedal Edema - Back Exam Back Exam: NORMAL INSPECTION - Neurological Exam Neurological Exam: Alert, Awake, CN II-XII Intact, Normal Gait, Oriented x3 - Psychiatric Exam Psychiatric exam: Normal Affect, Normal Mood - Skin Skin Exam: Dry, Intact, Normal Color, Warm Assessment and Plan (1) Abdominal pain Status: Acute (2) ESRD (end stage renal disease) Status: Acute (3) Hypertensive chronic kidney disease with stage 5 chronic kidney disease or end stage renal disease Status: Acute (4) Hypertensive urgency Status: Acute (5) Patient on peritoneal dialysis Status: Acute (6) Peritonitis Status: Acute (7) AMPARO (acute kidney injury) Status: Acute (8) Acute cholecystitis Status: Acute (9) Acute peritonitis Status: Acute (10) Anemia Status: Acute (11) Benign hypertensive kidney disease with end stage renal disease Status: Acute (12) CHF (congestive heart failure) Status: Acute (13) CKD (chronic kidney disease) stage 5, GFR less than 15 ml/min Status: Acute (14) CKD stage 5 secondary to hypertension Status: Acute (15) Chest pain Status: Acute (16) Dependency on pain medication Status: Acute (17) ESRD (end stage renal disease) Status: Acute (18) ESRD (end stage renal disease) Status: Acute (19) Elevated lipase Status: Acute (20) End stage renal disease Status: Acute (21) HTN (hypertension) Status: Acute (22) Hypertension Status: Acute (23) Hypertension Status: Acute (24) Hypertensive chronic kidney disease with stage 5 chronic kidney disease or end stage renal disease Status: Acute (25) Hypertensive emergency Status: Acute (26) Hypokalemia Status: Acute (27) Hypokalemia Status: Acute (28) Hypokalemia Status: Acute (29) Hypoxia Status: Acute (30) Intractable abdominal pain Status: Acute (31) NSTEMI (non-ST elevated myocardial infarction) Status: Acute (32) Nausea Status: Acute (33) Nausea & vomiting Status: Acute (34) Nephrolithiasis Status: Acute (35) PUD (peptic ulcer disease) Status: Acute (36) Pneumonia Status: Acute (37) Prophylactic measure Status: Acute (38) Prophylactic measure Status: Acute (39) Proteinuria Status: Acute (40) Renal failure Status: Acute (41) Renal insufficiency Status: Acute (42) Uncontrolled hypertension Status: Acute (43) Vomiting Status: Acute - Assessment and Plan (Free Text) Plan: Patient examined. Neutrophilia present. Peritoneal fluid shows 792 total WBCs, with 82% neutrophils suggestive of SBP. Blood culture shows no growth after 24 hours. Peritoneal fluid culture pending. Gram stain shows no organisms. Continue ceftriaxone and vancomycin. Continue antihypertensive medications. Continue aspirin. Continue supportive care.
[2017-03-26] MEDS: cefTRIAXone IV 1 gm in Dextros 50 ML IVPB SCH (10:44)
--- NOTE | 2017-03-26 11:00 | CP.PCM.CON ---
History of Present Illness - History of Present Illness History of Present Illness: 36 y/o female, past medical history includes renal failure, on peritoneal dialyis, presents to ED with c/o abdominal pain associated with nausea, vomiting (bilious vomitus), diarrhea, and low grade fever. Patient states she was recently diagnosed with peritoneal infection and has been using abx fluid via PD at home. Patient notes she was seen by Dr. Manjit Orr in his office today who referred her to the ER. Patient describes abdominal pain as diffuse, worsening with every step she takes. Review of prior records show pt was admitted to the hospital for peritoneal infection on 02/27, treated intraperitoneally prior to discharge home. PMH: ESRD NEPHROSCLEROSIS PUD PAIN MED DEPENDENCE PSH: PD CATH INSERTION CHOLEYCYSTECTOMY Review of Systems - Constitutional Constitutional: As Per HPI, Fatigue, Weakness - EENT Eyes: absent: As Per HPI, Blind Spots, Blurred Vision, Change in Vision, Decreased Night Vision, Diplopia, Discharge, Dry Eye, Exophthalmos, Floaters, Irritation, Itchy Eyes, Loss of Peripheral Vision, Pain, Photophobia, Requires Corrective Lenses, Sees Flashes, Spots in Vision, Tunnel Vision, Other Visual Disturbances, Loss of Vision, Other Ears: absent: As Per HPI, Decreased Hearing, Ear Discharge, Ear Pain, Tinnitus, Abnormal Hearing, Disequilibrium, Dizziness, Other Nose/Mouth/Throat: absent: As Per HPI, Epistaxis, Nasal Congestion, Nasal Discharge, Nasal Obstruction, Nasal Trauma, Nose Pain, Post Nasal Drip, Sinus Pain, Sinus Pressure, Bleeding Gums, Change in Voice, Dental Pain, Dry Mouth, Dysphagia, Halitosis, Hoarsness, Lip Swelling, Mouth Lesions, Mouth Pain, Odynophagia, Sore Throat, Throat Swelling, Tongue Swelling, Facial Pain, Neck Pain, Neck Mass, Other - Cardiovascular Cardiovascular: absent: As Per HPI, Acrocyanosis, Chest Pain, Chest Pain at Rest , Chest Pain with Activity, Claudication, Diaphoresis, Dyspnea, Dyspnea on Exertion, Edema, Irregular Heart Rhythm, Pain Radiating to Arm/Neck/Jaw, Leg Edema, Leg Ulcers, Lightheadedness, Orthopnea, Palpitations, Paroxysmal Nocturnal Dyspnea, Pedal Edema, Radiating Pain, Rapid Heart Rate, Slow Heart Rate, Syncope, Other - Respiratory Respiratory: Dyspnea, Pain with Coughing - Gastrointestinal Gastrointestinal: Early Satiety, Nausea, Vomiting - Genitourinary Genitourinary: As Per HPI - Musculoskeletal Musculoskeletal: Muscle Cramps, Muscle Weakness - Integumentary Integumentary: absent: As Per HPI, Acne, Alopecia, Bleeding Lesions, Change in Hair, Change in Nails, Change in Pigmentation, Changing Lesions, Dry Skin, Erythema, Furuncle, Hirsutism, Lesions, New Lesions, Non-Healing Lesions, Photosensitivity, Pruritus, Rash, Skin Pain, Skin Ulcer, Sores, Striae, Swelling , Unusual Bruising, Wounds, Jaundice, Other - Neurological Neurological: Dizziness, Weakness - Psychiatric Psychiatric: Anxiety, Depression Past Patient History - Past Medical History & Family History Past Medical History?: Yes Pertinent Family History: MOTHER - WAS ON DIALYSIS - Past Social History Smoking Status: Light Smoker < 10 Cigarettes Daily Chewing Tobacco Use: No Cigar Use: No - CARDIAC Hx Congestive Heart Failure: Yes Hx Hypertension: Yes - PULMONARY Hx Respiratory Disorders: No - NEUROLOGICAL Hx Neurological Disorder: No - HEENT Hx HEENT Problems: No Other/Comment: eyeglasses for reading - RENAL Hx Chronic Kidney Disease: Yes Date of Last Dialysis Treatment: 03/25/17 Hx Kidney Stones: Yes (left) - ENDOCRINE/METABOLIC Hx Endocrine Disorders: No - HEMATOLOGICAL/ONCOLOGICAL Hx Anemia: Yes - INTEGUMENTARY Hx Dermatological Problems: No - MUSCULOSKELETAL/RHEUMATOLOGICAL Hx Falls: No - GASTROINTESTINAL Hx Gastrointestinal Disorders: No - GENITOURINARY/GYNECOLOGICAL Hx Genitourinary Disorders: No - PSYCHIATRIC Hx Substance Use: No - SURGICAL HISTORY Hx Cholecystectomy: Yes - ANESTHESIA Hx Anesthesia: Yes Hx Anesthesia Reactions: No Hx Malignant Hyperthermia: No Meds Allergies/Adverse Reactions: Allergies Allergy/AdvReac Type Severity Reaction Status Date / Time No Known Allergies Allergy Verified 02/27/17 18:15 - Medications Medications: Current Medications Amlodipine Besylate (Norvasc) 10 mg PO DAILY [facility] Last Admin: 03/26/17 10:33 Dose: 10 mg Aspirin (Ecotrin) 81 mg PO DAILY [facility] Last Admin: 03/26/17 10:32 Dose: 81 mg Cinacalcet (Sensipar) 30 mg PO DAILY [facility] Last Admin: 03/26/17 10:34 Dose: 30 mg Clonidine HCl (Catapres) 0.2 mg PO BID [facility] Last Admin: 03/26/17 10:32 Dose: 0.2 mg Diclofenac Sodium (Voltaren) 75 mg PO BID PRN PRN Reason: ` Escitalopram Oxalate (Lexapro) 10 mg PO HS [facility] Last Admin: 03/26/17 00:38 Dose: 10 mg Ferrous Sulfate (Feosol) 325 mg PO DAILY [facility] Last Admin: 03/26/17 10:32 Dose: 325 mg Ceftriaxone Sodium (Rocephin Iv 1 Gm Duplex) 50 mls @ 100 mls/hr IVPB DAILY [facility] Last Admin: 03/26/17 10:44 Dose: 100 mls/hr Vancomycin/Sodium Chloride (Vancomycin 1 Gm/Ns 200 Ml) 1 gm in 200 mls @ 133 mls/hr IVPB MWF [facility] Stop: 04/01/17 09:01 Lisinopril (Zestril) 20 mg PO DAILY [facility] Last Admin: 03/26/17 10:32 Dose: 20 mg Minoxidil (Minoxidil) 5 mg PO BID [facility] Last Admin: 03/26/17 10:32 Dose: 5 mg Morphine Sulfate (Morphine) 2 mg IVP Q4 PRN PRN Reason: Pain, moderate (4-7) Last Admin: 03/26/17 06:35 Dose: 2 mg Physical Exam - Constitutional Appears: No Acute Distress, Chronically Ill - Head Exam Head Exam: ATRAUMATIC, NORMAL INSPECTION - Eye Exam Eye Exam: EOMI, Normal appearance - Neck Exam Neck exam: Positive for: Normal Inspection. Negative for: Tenderness - Respiratory Exam Respiratory Exam: Clear to Auscultation Bilateral, NORMAL BREATHING PATTERN - Cardiovascular Exam Cardiovascular Exam: REGULAR RHYTHM, +S1 - GI/Abdominal Exam GI & Abdominal Exam: Soft, Tenderness - Extremities Exam Extremities exam: Positive for: normal inspection. Negative for: tenderness - Neurological Exam Neurological exam: CN II-XII Intact, Oriented x3 - Skin Skin Exam: Dry, Warm Results - Vital Signs Recent Vital Signs: Last Vital Signs Temp 97.5 F L 03/26/17 07:00 Pulse 63 03/26/17 07:00 Resp 20 03/26/17 07:00 BP 159/96 H 03/26/17 07:00 Pulse Ox 98 03/26/17 07:00 - Labs Result Diagrams: 03/25/17 14:58 03/25/17 14:58 Labs: Laboratory Results - last 24 hr 03/25/17 03/25/17 03/25/17 14:41 14:58 14:58 WBC 10.3 RBC 4.43 Hgb 13.3 Hct 39.4 MCV 88.8 MCH 30.0 MCHC 33.8 RDW 14.5 Plt Count 280 MPV 8.0 Neut % (Auto) 81.1 H Lymph % (Auto) 12.5 L [place] % (Auto) 4.3 Eos % (Auto) 1.6 Baso % (Auto) 0.5 Neut # 8.3 H Lymph # 1.3 [place] # 0.4 Eos # 0.2 Baso # 0.0 Sodium 134 Potassium 3.4 L Chloride 99 Carbon Dioxide 23 Anion Gap 15 BUN 33 H Creatinine 4.5 H Est GFR ( Amer) 13 Est GFR (Non-Af Amer) 11 Random Glucose 104 Calcium 8.7 Total Bilirubin 0.8 AST 17 ALT 19 Alkaline Phosphatase 76 Total Protein 6.1 L Albumin 3.8 Globulin 2.3 Albumin/Globulin Ratio 1.7 Lipase 79 Urine Color Yellow Urine Clarity Hazy Urine pH 7.0 Ur Specific [place] 1.016 Urine Protein 2+ H Urine Glucose (UA) 1+ Urine Ketones Trace Urine Blood Negative Urine Nitrate Negative Urine Bilirubin Negative Urine Urobilinogen Normal Ur Leukocyte Esterase Neg Urine WBC (Auto) 2 Urine RBC (Auto) < 1 Ur Squamous Epith Cells 7 H Urine HCG, Qual Negative Assessment & Plan (1) Peritonitis Status: Acute (2) Hypertensive chronic kidney disease with stage 5 chronic kidney disease or end stage renal disease Status: Acute (3) ESRD (end stage renal disease) Status: Acute (4) Acute peritonitis Status: Acute - Assessment and Plan (Free Text) Plan: Send PD fluid cell count/ C+S Resume CAPD Add IP ancef follow up labs
[2017-03-26] MEDS ORDERED: Potassium Chloride 20 mEq/15 ml LIQ UD PO ONE (11:15)
[2017-03-26] MEDS: CEFAZOLIN IP SCH ×2 (13:15→17:53)
[2017-03-26] MEDS: DIANEAL PD IP SCH ×2 (13:15→17:53)
--- NOTE | 2017-03-26 16:05 | CP.PCM.PN ---
<Samir Ramos - Last Filed: 03/26/17 16:13> Subjective - Date & Time of Evaluation Date of Evaluation: 03/26/17 Time of Evaluation: 16:00 - Subjective Subjective: Progress note. Attending: Dr. Orr. This is a 36 yo female with past medical history of renal failure, on peritoneal dialysis presenting to ER with abdominal pain associated with nausea , vomiting, diarrhea, and low grade fever. Patient states she was recently diagnosed with peritoneal infection and has been using abx via peritoneal dialysis at home. Patient notes she was seen by Dr. Manjit Orr in his office today who referred her to the ER. Patient describes abdominal pain as diffuse, worsening with every step she takes. Review of prior records show pt was admitted to the hospital for peritoneal infection on 02/27, treated intraperitoneally prior to discharge home. Patient describes vomitus as bilious in nature. Pt seen and examined at bedside. No acute distress. No events overnight. No fevers, chills, vomiting, diarrhea. Reports some abdominal pain. PMH: esrd, pud, drug seeking behavior PSH: dialysis catheter insertion, cholecystectomy Allergies: NKDA FH: Denies Social hx: denies smoking, drinking, drug use. Objective - Vital Signs/Intake and Output Vital Signs (last 24 hours): Temp Pulse Resp BP Pulse Ox 97.8 F 60 20 102/62 96 03/26/17 15:56 03/26/17 15:56 03/26/17 15:56 03/26/17 15:56 03/26/17 15:56 Intake and Output: 03/26/17 03/26/17 06:59 18:59 Intake Total 200 Balance 200 - Medications Medications: Current Medications Amlodipine Besylate (Norvasc) 10 mg PO DAILY [facility] Last Admin: 03/26/17 10:33 Dose: 10 mg Aspirin (Ecotrin) 81 mg PO DAILY [facility] Last Admin: 03/26/17 10:32 Dose: 81 mg Cinacalcet (Sensipar) 30 mg PO DAILY [facility] Last Admin: 03/26/17 10:34 Dose: 30 mg Clonidine HCl (Catapres) 0.2 mg PO BID [facility] Last Admin: 03/26/17 10:32 Dose: 0.2 mg Diclofenac Sodium (Voltaren) 75 mg PO BID PRN PRN Reason: ` Escitalopram Oxalate (Lexapro) 10 mg PO HS [facility] Last Admin: 03/26/17 00:38 Dose: 10 mg Ferrous Sulfate (Feosol) 325 mg PO DAILY [facility] Last Admin: 03/26/17 10:32 Dose: 325 mg Ceftriaxone Sodium (Rocephin Iv 1 Gm Duplex) 50 mls @ 100 mls/hr IVPB DAILY [facility] Last Admin: 03/26/17 10:44 Dose: 100 mls/hr Vancomycin/Sodium Chloride (Vancomycin 1 Gm/Ns 200 Ml) 1 gm in 200 mls @ 133 mls/hr IVPB MWF [facility] Stop: 04/01/17 09:01 Cefazolin Sodium 250 mg/ (Peritoneal Dialysis Solution) 2,000 mls @ 0 mls/hr IP Q6 [facility] PRN Reason: UD Last Admin: 03/26/17 13:15 Dose: 2,000 mls/hr Lisinopril (Zestril) 20 mg PO DAILY [facility] Last Admin: 03/26/17 10:32 Dose: 20 mg Minoxidil (Minoxidil) 5 mg PO BID [facility] Last Admin: 03/26/17 10:32 Dose: 5 mg Morphine Sulfate (Morphine) 2 mg IVP Q4 PRN PRN Reason: Pain, moderate (4-7) Last Admin: 03/26/17 14:53 Dose: 2 mg - Labs Labs: 03/25/17 14:58 03/25/17 14:58 - Constitutional Appears: Non-toxic, No Acute Distress - Head Exam Head Exam: ATRAUMATIC, NORMAL INSPECTION, NORMOCEPHALIC - Eye Exam Eye Exam: EOMI - ENT Exam ENT Exam: Mucous Membranes Moist - Neck Exam Neck Exam: Full ROM, Normal Inspection - Respiratory Exam Respiratory Exam: NORMAL BREATHING PATTERN. absent: Respiratory Distress - Cardiovascular Exam Cardiovascular Exam: +S1, +S2 - GI/Abdominal Exam GI & Abdominal Exam: Soft, Normal Bowel Sounds. absent: Tenderness - Extremities Exam Extremities Exam: Full ROM, Normal Inspection - Back Exam Back Exam: NORMAL INSPECTION - Neurological Exam Neurological Exam: Alert, Awake, Oriented x3 - Psychiatric Exam Psychiatric exam: Normal Affect, Normal Mood - Skin Skin Exam: Dry, Intact, Normal Color, Warm Assessment and Plan - Assessment and Plan (Free Text) Assessment: This is a 36 yo female with 1. Abdominal pain -nephro consult. recs appreciated. Dr. Jordan -renal diet -blood cultures pending -body fluid culture pending -morphine IV prn severe pain 2. hx of intraperitoneal infection -ID consult. Dr. Sosa. recs appreciated. -pt has been afebrile -cefazolin IV (start date 03/26) -ceftriaxone IV 1 g daily (start date 03/26) -vancomycin 1 g MWF (start date 03/27) 3. hx of anxiety -continue lexapro daily 4. hx of peritoneal dialysis nephro consult as above. 5. hx of HTN -continue lisinopril 20 po daily -continue minoxidil 5 PO BID 6. Anemia -normocytic -continue ferrous sulfate 325 PO daily 7. GI/DVT ppx -protonix daily -SCDs -discussed with Dr. Orr. <Vanessa Orr S - Last Filed: 03/27/17 10:51> Objective - Vital Signs/Intake and Output Vital Signs (last 24 hours): Temp Pulse Resp BP Pulse Ox 99.0 F 75 18 103/62 96 03/27/17 08:16 03/27/17 08:16 03/27/17 08:16 03/27/17 08:16 03/27/17 08:16 Intake and Output: 03/27/17 03/27/17 06:59 18:59 Intake Total 320 Balance 320 - Medications Medications: Current Medications Amlodipine Besylate (Norvasc) 10 mg PO DAILY [facility] Last Admin: 03/27/17 10:12 Dose: 10 mg Aspirin (Ecotrin) 81 mg PO DAILY [facility] Last Admin: 03/27/17 10:12 Dose: 81 mg Cinacalcet (Sensipar) 30 mg PO DAILY [facility] Last Admin: 03/26/17 10:34 Dose: 30 mg Clonidine HCl (Catapres) 0.2 mg PO BID [facility] Last Admin: 03/27/17 10:11 Dose: 0.2 mg Diclofenac Sodium (Voltaren) 75 mg PO BID PRN PRN Reason: ` Escitalopram Oxalate (Lexapro) 10 mg PO HS [facility] Last Admin: 03/26/17 21:25 Dose: 10 mg Ferrous Sulfate (Feosol) 325 mg PO DAILY [facility] Last Admin: 03/27/17 10:11 Dose: 325 mg Ceftriaxone Sodium (Rocephin Iv 1 Gm Duplex) 50 mls @ 100 mls/hr IVPB DAILY [facility] Last Admin: 03/27/17 09:00 Dose: 100 mls/hr Vancomycin/Sodium Chloride (Vancomycin 1 Gm/Ns 200 Ml) 1 gm in 200 mls @ 133 mls/hr IVPB MWF [facility] Stop: 04/01/17 09:01 Last Admin: 03/27/17 10:13 Dose: 133 mls/hr Cefazolin Sodium 250 mg/ (Peritoneal Dialysis Solution) 2,000 mls @ 0 mls/hr IP Q6 [facility] PRN Reason: UD Last Admin: 03/27/17 06:00 Dose: 2,000 mls/hr Lisinopril (Zestril) 20 mg PO DAILY [facility] Last Admin: 03/27/17 10:11 Dose: 20 mg Minoxidil (Minoxidil) 5 mg PO BID [facility] Last Admin: 03/27/17 10:13 Dose: 5 mg Morphine Sulfate (Morphine) 2 mg IVP Q4 PRN PRN Reason: Pain, moderate (4-7) Last Admin: 03/27/17 06:00 Dose: 2 mg - Labs Labs: 03/27/17 07:23 03/27/17 07:23 Assessment and Plan (1) Abdominal pain Status: Acute (2) ESRD (end stage renal disease) Status: Acute (3) Hypertensive chronic kidney disease with stage 5 chronic kidney disease or end stage renal disease Status: Acute (4) Hypertensive urgency Status: Acute (5) Patient on peritoneal dialysis Status: Acute (6) Peritonitis Status: Acute (7) AMPARO (acute kidney injury) Status: Acute (8) Acute cholecystitis Status: Acute (9) Acute peritonitis Status: Acute (10) Anemia Status: Acute (11) Benign hypertensive kidney disease with end stage renal disease Status: Acute (12) CHF (congestive heart failure) Status: Acute (13) CKD (chronic kidney disease) stage 5, GFR less than 15 ml/min Status: Acute (14) CKD stage 5 secondary to hypertension Status: Acute (15) Chest pain Status: Acute (16) Dependency on pain medication Status: Acute (17) ESRD (end stage renal disease) Status: Acute (18) ESRD (end stage renal disease) Status: Acute (19) Elevated lipase Status: Acute (20) End stage renal disease Status: Acute (21) HTN (hypertension) Status: Acute (22) Hypertension Status: Acute (23) Hypertension Status: Acute (24) Hypertensive chronic kidney disease with stage 5 chronic kidney disease or end stage renal disease Status: Acute (25) Hypertensive emergency Status: Acute (26) Hypokalemia Status: Acute (27) Hypokalemia Status: Acute (28) Hypokalemia Status: Acute (29) Hypoxia Status: Acute (30) Intractable abdominal pain Status: Acute (31) NSTEMI (non-ST elevated myocardial infarction) Status: Acute (32) Nausea Status: Acute (33) Nausea & vomiting Status: Acute (34) Nephrolithiasis Status: Acute (35) PUD (peptic ulcer disease) Status: Acute (36) Pneumonia Status: Acute (37) Prophylactic measure Status: Acute (38) Prophylactic measure Status: Acute (39) Proteinuria Status: Acute (40) Renal failure Status: Acute (41) Renal insufficiency Status: Acute (42) Uncontrolled hypertension Status: Acute (43) Vomiting Status: Acute Attending/Attestation - Attestation I have personally seen and examined this patient.: Yes I have fully participated in the care of the patient.: Yes I have reviewed all pertinent clinical information, including history, physical exam and plan: Yes Notes (Text): Patient examined. No acute overnight events. Patient continues to have mild abdominal pain. No fever present. Continue ceftriaxone and vancomycin. Cefazolin in peritoneal dialysis solution. Continue antihypertensive medications. Continue aspirin. Continue supportive care.
[2017-03-26 17:27] LABS: BODY FLUID TYPE PERITONEAL
--- NOTE | 2017-03-26 17:54 | CP.PCM.CON ---
History of Present Illness - History of Present Illness History of Present Illness: A 36-year-old female with PMH anemia, anxiety, CHF, depression, HTN, renal stone, ESRD [on peritoneal dialysis presents to the ER for abdominal pain. for 3-4 days. Insidious in onset, progressive, diffuse, weak, generalized, all over the abdomen, intensity of 6/10, partly relieved by medications. also C/O nausea for 2-4 days with vomiting on and off as well as diarrhea and fever Patient admits that she was recently treated for peritoneal infection. started on empiric IV antibiotics Review of Systems - Constitutional Constitutional: As Per HPI - EENT Eyes: absent: As Per HPI, Blind Spots, Blurred Vision, Change in Vision, Decreased Night Vision, Diplopia, Discharge, Dry Eye, Exophthalmos, Floaters, Irritation, Itchy Eyes, Loss of Peripheral Vision, Pain, Photophobia, Requires Corrective Lenses, Sees Flashes, Spots in Vision, Tunnel Vision, Other Visual Disturbances, Loss of Vision, Other Ears: absent: As Per HPI, Decreased Hearing, Ear Discharge, Ear Pain, Tinnitus, Abnormal Hearing, Disequilibrium, Dizziness, Other Nose/Mouth/Throat: absent: As Per HPI, Epistaxis, Nasal Congestion, Nasal Discharge, Nasal Obstruction, Nasal Trauma, Nose Pain, Post Nasal Drip, Sinus Pain, Sinus Pressure, Bleeding Gums, Change in Voice, Dental Pain, Dry Mouth, Dysphagia, Halitosis, Hoarsness, Lip Swelling, Mouth Lesions, Mouth Pain, Odynophagia, Sore Throat, Throat Swelling, Tongue Swelling, Facial Pain, Neck Pain, Neck Mass, Other - Breasts Breasts: absent: As Per HPI, Change in Shape, Mass, Pain, Nipple Discharge, Nipple Inversion, Skin Changes, Swelling, Other - Cardiovascular Cardiovascular: absent: As Per HPI, Acrocyanosis, Chest Pain, Chest Pain at Rest , Chest Pain with Activity, Claudication, Diaphoresis, Dyspnea, Dyspnea on Exertion, Edema, Irregular Heart Rhythm, Pain Radiating to Arm/Neck/Jaw, Leg Edema, Leg Ulcers, Lightheadedness, Orthopnea, Palpitations, Paroxysmal Nocturnal Dyspnea, Pedal Edema, Radiating Pain, Rapid Heart Rate, Slow Heart Rate, Syncope, Other - Respiratory Respiratory: absent: As Per HPI, Cough, Dyspnea, Hemoptysis, Dyspnea on Exertion , Wheezing, Snoring, Stridor, Pain on Inspiration, Chest Congestion, Excessive Mucous Production, Change in Mucous Color, Pain with Coughing, Other - Gastrointestinal Gastrointestinal: As Per HPI - Genitourinary Genitourinary: As Per HPI - Reproductive: Female Reproductive:Female: absent: As Per HPI, Amenorrhea, Amenorrhea/ Control, Currently Menstual, Cycle <21 Days, Cycle >35 Days, Cycle Variable, Menses 1-7 Days, Menses >/= 8 Days, Menses Variable, Cycle > 4 Weeks Between, No Menses for 6 Months, Heavy Menses, Light Menses, Normal Menses, Spotting Between Cycles , S/P Hysterectomy, Menopausal, Post Menopausal, Premenarche, Abnormal Vaginal Bleeding, Dysmenorrhea, Dyspareunia, Genital Lesions, Genital Pruritis, Pelvic Pain, Prolapse Symptoms, Sexual Dysfunction, Vaginal Discharge, Vaginal Dryness , Vaginal Odor, Vaginal Pruritis, Other - Menstruation Menstruation: absent: As Per HPI, Amenorrhea, Amenorrhea/ Control, Currently Menstual, Cycle <21 Days, Cycle >35 Days, Cycle Variable, Menses 1-7 Days, Menses >/= 8 Days, Menses Variable, Cycle > 4 Weeks Between, No Menses for 6 Months, Heavy Menses, Light Menses, Normal Menses, Spotting Between Cycles , S/P Hysterectomy, Menopausal, Post Menopausal, Premenarche, Abnormal Vaginal Bleeding, Dysmenorrhea, Other - Musculoskeletal Musculoskeletal: absent: As Per HPI, Abnormal Gait, Arthralgias, Atrophy, Back Pain, Deformity, Joint Swelling, Limited Range of Motion, Loss of Height, Muscle Cramps, Muscle Weakness, Myalgias, Neck Pain, Numbness, Radiating Pain into Limb, Stiffness, Tingling, Other - Integumentary Integumentary: absent: As Per HPI, Acne, Alopecia, Bleeding Lesions, Change in Hair, Change in Nails, Change in Pigmentation, Changing Lesions, Dry Skin, Erythema, Furuncle, Hirsutism, Lesions, New Lesions, Non-Healing Lesions, Photosensitivity, Pruritus, Rash, Skin Pain, Skin Ulcer, Sores, Striae, Swelling , Unusual Bruising, Wounds, Jaundice, Other - Neurological Neurological: absent: As Per HPI, Abnormal Gait, Abnormal Hearing, Abnormal Movements, Abnormal Speech, Behavioral Changes, Burning Sensations, Confusion, Convulsions, Disequilibrium, Dizziness, Numbness, Focal Weakness, Frequent Falls , Headaches, Lack of Coordination, Loss of Vision, Memory Loss, Paresthesias, Radicular Pain, Restless Legs, Sensory Deficit, Syncope, Tingling, Tremor, Vertigo, Weakness, Other Visual Disturbances, Other - Psychiatric Psychiatric: absent: As Per HPI, Abnormal Sleep Pattern, Anhedonia, Anxiety, Auditory Hallucinations, Behavioral Changes, Change in Appetite, Change in Libido, Confusion, Depression, Difficulty Concentrating, Hallucinations, Homicidal Ideation, Hopelessness, Irritability, Memory Loss, Mood Swings, Panic Attacks, Paranoia, Suicidal Ideation, Visual Hallucinations, Tactile Hallucinations, Other - Endocrine Endocrine: absent: As Per HPI, Change in Body Appearance, Change in Libido, Cold Intolorance, Deepening of Voice, Excessive Sweating, Fatigue, Flushing, Heat Intolorance, Increase in Ring/Shoe/Hat Size, Palpitations, Polydipsia, Polyphagia, Polyuria, Other - Hematologic/Lymphatic Hematologic: absent: As Per HPI, Easy Bleeding, Easy Bruising, Lymphadenopathy, Other Past Patient History - Past Medical History & Family History Past Medical History?: Yes - Past Social History Smoking Status: Light Smoker < 10 Cigarettes Daily - CARDIAC Hx Congestive Heart Failure: Yes Hx Hypertension: Yes - PULMONARY Hx Respiratory Disorders: No - NEUROLOGICAL Hx Neurological Disorder: No - HEENT Hx HEENT Problems: No Other/Comment: eyeglasses for reading - RENAL Hx Chronic Kidney Disease: Yes Hx Kidney Stones: Yes (left) - ENDOCRINE/METABOLIC Hx Endocrine Disorders: No - HEMATOLOGICAL/ONCOLOGICAL Hx Anemia: Yes - INTEGUMENTARY Hx Dermatological Problems: No - MUSCULOSKELETAL/RHEUMATOLOGICAL Hx Falls: No - GASTROINTESTINAL Hx Gastrointestinal Disorders: No - GENITOURINARY/GYNECOLOGICAL Hx Genitourinary Disorders: No - PSYCHIATRIC Hx Anxiety: Yes Hx Depression: Yes Hx Substance Use: No - SURGICAL HISTORY Hx Cholecystectomy: Yes - ANESTHESIA Hx Anesthesia: Yes Hx Anesthesia Reactions: No Hx Malignant Hyperthermia: No Meds Allergies/Adverse Reactions: Allergies Allergy/AdvReac Type Severity Reaction Status Date / Time No Known Allergies Allergy Verified 02/27/17 18:15 - Medications Medications: Current Medications Amlodipine Besylate (Norvasc) 10 mg PO DAILY [facility] Last Admin: 03/26/17 10:33 Dose: 10 mg Aspirin (Ecotrin) 81 mg PO DAILY [facility] Last Admin: 03/26/17 10:32 Dose: 81 mg Cinacalcet (Sensipar) 30 mg PO DAILY [facility] Last Admin: 03/26/17 10:34 Dose: 30 mg Clonidine HCl (Catapres) 0.2 mg PO BID [facility] Last Admin: 03/26/17 10:32 Dose: 0.2 mg Diclofenac Sodium (Voltaren) 75 mg PO BID PRN PRN Reason: ` Escitalopram Oxalate (Lexapro) 10 mg PO HS [facility] Last Admin: 03/26/17 00:38 Dose: 10 mg Ferrous Sulfate (Feosol) 325 mg PO DAILY [facility] Last Admin: 03/26/17 10:32 Dose: 325 mg Ceftriaxone Sodium (Rocephin Iv 1 Gm Duplex) 50 mls @ 100 mls/hr IVPB DAILY [facility] Last Admin: 03/26/17 10:44 Dose: 100 mls/hr Vancomycin/Sodium Chloride (Vancomycin 1 Gm/Ns 200 Ml) 1 gm in 200 mls @ 133 mls/hr IVPB MWF [facility] Stop: 04/01/17 09:01 Cefazolin Sodium 250 mg/ (Peritoneal Dialysis Solution) 2,000 mls @ 0 mls/hr IP Q6 [facility] PRN Reason: UD Last Admin: 03/26/17 13:15 Dose: 2,000 mls/hr Lisinopril (Zestril) 20 mg PO DAILY [facility] Last Admin: 03/26/17 10:32 Dose: 20 mg Minoxidil (Minoxidil) 5 mg PO BID [facility] Last Admin: 03/26/17 10:32 Dose: 5 mg Morphine Sulfate (Morphine) 2 mg IVP Q4 PRN PRN Reason: Pain, moderate (4-7) Last Admin: 03/26/17 14:53 Dose: 2 mg Physical Exam - Constitutional Appears: Non-toxic, Chronically Ill - Head Exam Head Exam: NORMOCEPHALIC - Eye Exam Eye Exam: PERRL. absent: Scleral icterus - ENT Exam ENT Exam: Mucous Membranes Dry, Normal External Ear Exam - Neck Exam Neck exam: Negative for: Lymphadenopathy - Respiratory Exam Respiratory Exam: Decreased Breath Sounds, Rhonchi - Cardiovascular Exam Cardiovascular Exam: REGULAR RHYTHM, +S1, +S2 - GI/Abdominal Exam GI & Abdominal Exam: Diminished Bowel Sounds, Distended, Guarding, Tenderness - Rectal Exam Rectal Exam: Deferred - Exam Exam: NORMAL INSPECTION - Extremities Exam Extremities exam: Positive for: pedal pulses present. Negative for: calf tenderness, pedal edema, tenderness - Back Exam Back exam: absent: CVA tenderness (L), CVA tenderness (R) - Neurological Exam Neurological exam: Alert, CN II-XII Intact, Oriented x3, Reflexes Normal - Psychiatric Exam Psychiatric exam: Depressed - Skin Skin Exam: Dry Results - Vital Signs Recent Vital Signs: Last Vital Signs Temp 97.8 F 03/26/17 15:56 Pulse 60 03/26/17 15:56 Resp 20 03/26/17 15:56 BP 102/62 03/26/17 15:56 Pulse Ox 96 03/26/17 15:56 - Labs Result Diagrams: 03/25/17 14:58 03/25/17 14:58 Labs: Laboratory Results - last 24 hr 03/26/17 17:26 Fluid Source Peritoneal Assessment & Plan (1) Abdominal pain Status: Acute (2) ESRD (end stage renal disease) Status: Acute (3) Patient on peritoneal dialysis Status: Acute (4) Peritonitis Status: Acute - Assessment and Plan (Free Text) Assessment: await cultures cont iv antibiotics
[2017-03-26 18:45] LABS: BF GROSS APPEARANCE SL CLOUDY (CLEAR)
[2017-03-26 18:46] LABS: BODY FLUID TOTAL COUNT 100 (0-0)
[2017-03-27] MEDS: CEFAZOLIN IP SCH ×4 (00:07→17:42)
[2017-03-27] MEDS: DIANEAL PD IP SCH ×4 (00:07→17:42)
[2017-03-27 07:31] LABS: EOS # 0.4 K/uL (0.0-0.7); MEAN CELL VOLUME 90.1 fL (81.0-99.0); MEAN CORPUSCULAR HEMOGLOBIN 30.4 pg (27.0-31.0); MEAN CORPUSCULAR HGB CONC 33.8 g/dL (33.0-37.0); MONO # 0.6 K/uL (0.0-0.8); WHITE BLOOD COUNT 8.7 K/uL (4.8-10.8)
[2017-03-27 07:49] LABS: BASO % 0.3 % (0.0-2.0); EOS % 4.8 % (0.0-4.0); HEMATOCRIT 32.5 % (34.0-47.0); LYMPH % 11.3 % (20.0-40.0); MEAN PLATELET VOLUME 8.2 fL (7.2-11.7); MONO % 6.6 % (0.0-10.0); RED CELL DISTRIBUTION WIDTH 14.6 % (11.5-14.5)
[2017-03-27 08:15] LABS: ALB/GLOB RATIO 1.1 (1.0-2.1); BILIRUBIN,TOTAL 0.2 mg/dL (0.2-1.3); CALCIUM 7.6 mg/dl (8.6-10.4); MAGNESIUM 1.7 mg/dL (1.6-2.3); PHOSPHOROUS 4.9 mg/dL (2.5-4.5); POTASSIUM 4.1 mmol/L (3.6-5.2); TOTAL PROTEIN 5.6 g/dL (6.3-8.3)
[2017-03-27] MEDS: cefTRIAXone IV 1 gm in Dextros 50 ML IVPB SCH (09:00)
[2017-03-27] MEDS ORDERED: Vancomycin 1 g Inj IVPB SCH (09:00)
[2017-03-27] MEDS: Vancomycin 1 gm/NS 200 ml 1 GM/200 ML BAG IVPB SCH (10:13)
--- NOTE | 2017-03-27 10:45 | CP.PCM.PN ---
<Samir Ramos - Last Filed: 03/27/17 10:46> Subjective - Date & Time of Evaluation Date of Evaluation: 03/27/17 Time of Evaluation: 10:45 - Subjective Subjective: Progress note. Attending: Dr. Orr Pt seen and examined at bedside. No acute distress. No events overnight. Pt reporting abdominal pain, unhappy with pain meds. Hx of drug seeking behavior. No fevers, chills, vomiting, diarrhea. Objective - Vital Signs/Intake and Output Vital Signs (last 24 hours): Temp Pulse Resp BP Pulse Ox 99.0 F 75 18 103/62 96 03/27/17 08:16 03/27/17 08:16 03/27/17 08:16 03/27/17 08:16 03/27/17 08:16 Intake and Output: 03/27/17 03/27/17 06:59 18:59 Intake Total 320 Balance 320 - Medications Medications: Current Medications Amlodipine Besylate (Norvasc) 10 mg PO DAILY [facility] Last Admin: 03/27/17 10:12 Dose: 10 mg Aspirin (Ecotrin) 81 mg PO DAILY [facility] Last Admin: 03/27/17 10:12 Dose: 81 mg Cinacalcet (Sensipar) 30 mg PO DAILY [facility] Last Admin: 03/26/17 10:34 Dose: 30 mg Clonidine HCl (Catapres) 0.2 mg PO BID [facility] Last Admin: 03/27/17 10:11 Dose: 0.2 mg Diclofenac Sodium (Voltaren) 75 mg PO BID PRN PRN Reason: ` Escitalopram Oxalate (Lexapro) 10 mg PO HS [facility] Last Admin: 03/26/17 21:25 Dose: 10 mg Ferrous Sulfate (Feosol) 325 mg PO DAILY [facility] Last Admin: 03/27/17 10:11 Dose: 325 mg Ceftriaxone Sodium (Rocephin Iv 1 Gm Duplex) 50 mls @ 100 mls/hr IVPB DAILY [facility] Last Admin: 03/27/17 09:00 Dose: 100 mls/hr Vancomycin/Sodium Chloride (Vancomycin 1 Gm/Ns 200 Ml) 1 gm in 200 mls @ 133 mls/hr IVPB [facility] Stop: 04/01/17 09:01 Last Admin: 03/27/17 10:13 Dose: 133 mls/hr Cefazolin Sodium 250 mg/ (Peritoneal Dialysis Solution) 2,000 mls @ 0 mls/hr IP Q6 [facility] PRN Reason: UD Last Admin: 03/27/17 06:00 Dose: 2,000 mls/hr Lisinopril (Zestril) 20 mg PO DAILY [facility] Last Admin: 03/27/17 10:11 Dose: 20 mg Minoxidil (Minoxidil) 5 mg PO BID [facility] Last Admin: 03/27/17 10:13 Dose: 5 mg Morphine Sulfate (Morphine) 2 mg IVP Q4 PRN PRN Reason: Pain, moderate (4-7) Last Admin: 03/27/17 06:00 Dose: 2 mg - Labs Labs: 03/27/17 07:23 03/27/17 07:23 - Constitutional Appears: Non-toxic, No Acute Distress - Head Exam Head Exam: ATRAUMATIC, NORMAL INSPECTION, NORMOCEPHALIC - Eye Exam Eye Exam: EOMI - ENT Exam ENT Exam: Mucous Membranes Moist - Neck Exam Neck Exam: Full ROM, Normal Inspection - Respiratory Exam Respiratory Exam: NORMAL BREATHING PATTERN. absent: Respiratory Distress - Cardiovascular Exam Cardiovascular Exam: +S1, +S2 - GI/Abdominal Exam GI & Abdominal Exam: Soft, Normal Bowel Sounds. absent: Tenderness - Extremities Exam Extremities Exam: Full ROM, Normal Inspection - Neurological Exam Neurological Exam: Alert, Awake, Oriented x3 - Psychiatric Exam Psychiatric exam: Normal Affect, Normal Mood - Skin Skin Exam: Dry, Intact, Normal Color, Warm Assessment and Plan - Assessment and Plan (Free Text) Assessment: This is a 36 yo female with 1. Abdominal pain -nephro consult. recs appreciated. Dr. Jordan -renal diet -blood cultures pending -body fluid culture pending -morphine2 mg q 4 hrs IV prn severe pain 2. hx of intraperitoneal infection -ID consult. Dr. Sosa. recs appreciated. -pt has been afebrile -cefazolin IV (start date 03/26) -ceftriaxone IV 1 g daily (start date 03/26) -vancomycin 1 g MWF (start date 03/27) 3. hx of anxiety -continue lexapro daily 4. hx of peritoneal dialysis nephro consult as above. continue cinacalcet 5. hx of HTN -continue lisinopril 20 po daily -continue minoxidil 5 PO BID -continue clonidine .2 mg PO BID -continue norvasc PO daily -continue asa 81 mg po daily 6. Anemia -normocytic -continue ferrous sulfate 325 PO daily 7. GI/DVT ppx -protonix daily -SCDs -discussed with Dr. Orr. <Vanessa Orr - Last Filed: 03/27/17 10:52> Objective - Vital Signs/Intake and Output Vital Signs (last 24 hours): Temp Pulse Resp BP Pulse Ox 99.0 F 75 18 103/62 96 03/27/17 08:16 03/27/17 08:16 03/27/17 08:16 03/27/17 08:16 03/27/17 08:16 Intake and Output: 03/27/17 03/27/17 06:59 18:59 Intake Total 320 Balance 320 - Medications Medications: Current Medications Amlodipine Besylate (Norvasc) 10 mg PO DAILY [facility] Last Admin: 03/27/17 10:12 Dose: 10 mg Aspirin (Ecotrin) 81 mg PO DAILY [facility] Last Admin: 03/27/17 10:12 Dose: 81 mg Cinacalcet (Sensipar) 30 mg PO DAILY [facility] Last Admin: 03/26/17 10:34 Dose: 30 mg Clonidine HCl (Catapres) 0.2 mg PO BID [facility] Last Admin: 03/27/17 10:11 Dose: 0.2 mg Diclofenac Sodium (Voltaren) 75 mg PO BID PRN PRN Reason: ` Escitalopram Oxalate (Lexapro) 10 mg PO HS [facility] Last Admin: 03/26/17 21:25 Dose: 10 mg Ferrous Sulfate (Feosol) 325 mg PO DAILY [facility] Last Admin: 03/27/17 10:11 Dose: 325 mg Ceftriaxone Sodium (Rocephin Iv 1 Gm Duplex) 50 mls @ 100 mls/hr IVPB DAILY [facility] Last Admin: 03/27/17 09:00 Dose: 100 mls/hr Vancomycin/Sodium Chloride (Vancomycin 1 Gm/Ns 200 Ml) 1 gm in 200 mls @ 133 mls/hr IVPB MWF [facility] Stop: 04/01/17 09:01 Last Admin: 03/27/17 10:13 Dose: 133 mls/hr Cefazolin Sodium 250 mg/ (Peritoneal Dialysis Solution) 2,000 mls @ 0 mls/hr IP Q6 [facility] PRN Reason: UD Last Admin: 03/27/17 06:00 Dose: 2,000 mls/hr Lisinopril (Zestril) 20 mg PO DAILY [facility] Last Admin: 03/27/17 10:11 Dose: 20 mg Minoxidil (Minoxidil) 5 mg PO BID [facility] Last Admin: 03/27/17 10:13 Dose: 5 mg Morphine Sulfate (Morphine) 2 mg IVP Q4 PRN PRN Reason: Pain, moderate (4-7) Last Admin: 03/27/17 06:00 Dose: 2 mg - Labs Labs: 03/27/17 07:23 03/27/17 07:23 Assessment and Plan (1) Abdominal pain Status: Acute (2) ESRD (end stage renal disease) Status: Acute (3) Hypertensive chronic kidney disease with stage 5 chronic kidney disease or end stage renal disease Status: Acute (4) Hypertensive urgency Status: Acute (5) Patient on peritoneal dialysis Status: Acute (6) Peritonitis Status: Acute (7) AMPARO (acute kidney injury) Status: Acute (8) Acute cholecystitis Status: Acute (9) Acute peritonitis Status: Acute (10) Anemia Status: Acute (11) Benign hypertensive kidney disease with end stage renal disease Status: Acute (12) CHF (congestive heart failure) Status: Acute (13) CKD (chronic kidney disease) stage 5, GFR less than 15 ml/min Status: Acute (14) CKD stage 5 secondary to hypertension Status: Acute (15) Chest pain Status: Acute (16) Dependency on pain medication Status: Acute (17) ESRD (end stage renal disease) Status: Acute (18) ESRD (end stage renal disease) Status: Acute (19) Elevated lipase Status: Acute (20) End stage renal disease Status: Acute (21) HTN (hypertension) Status: Acute (22) Hypertension Status: Acute (23) Hypertension Status: Acute (24) Hypertensive chronic kidney disease with stage 5 chronic kidney disease or end stage renal disease Status: Acute (25) Hypertensive emergency Status: Acute (26) Hypokalemia Status: Acute (27) Hypokalemia Status: Acute (28) Hypokalemia Status: Acute (29) Hypoxia Status: Acute (30) Intractable abdominal pain Status: Acute (31) NSTEMI (non-ST elevated myocardial infarction) Status: Acute (32) Nausea Status: Acute (33) Nausea & vomiting Status: Acute (34) Nephrolithiasis Status: Acute (35) PUD (peptic ulcer disease) Status: Acute (36) Pneumonia Status: Acute (37) Prophylactic measure Status: Acute (38) Prophylactic measure Status: Acute (39) Proteinuria Status: Acute (40) Renal failure Status: Acute (41) Renal insufficiency Status: Acute (42) Uncontrolled hypertension Status: Acute (43) Vomiting Status: Acute Attending/Attestation - Attestation I have personally seen and examined this patient.: Yes I have fully participated in the care of the patient.: Yes I have reviewed all pertinent clinical information, including history, physical exam and plan: Yes Notes (Text): Patient examined. No acute overnight events. Patient still has abdominal pain. Patient wants pain medications [patient has history of drug-seeking behavior]. Continue antibiotics ceftriaxone and vancomycin. Continue antihypertensive medications. Continue pain management with morphine. Continue supportive care
--- NOTE | 2017-03-27 14:35 | CP.PCM.PN ---
Subjective - Date & Time of Evaluation Date of Evaluation: 03/27/17 Time of Evaluation: 14:32 - Subjective Subjective: Still c/o abdominal pains Has new temp elevation now-100.8 previous PD culture negative BP controlled no other c/o chills, SOB, nausea, vomiting, HAs Objective - Vital Signs/Intake and Output Vital Signs (last 24 hours): Temp Pulse Resp BP Pulse Ox 99.0 F 75 18 103/62 96 03/27/17 08:16 03/27/17 08:16 03/27/17 08:16 03/27/17 08:16 03/27/17 08:16 Intake and Output: 03/27/17 03/27/17 06:59 18:59 Intake Total 320 Balance 320 - Medications Medications: Current Medications Amlodipine Besylate (Norvasc) 10 mg PO DAILY [facility] Last Admin: 03/27/17 10:12 Dose: 10 mg Aspirin (Ecotrin) 81 mg PO DAILY [facility] Last Admin: 03/27/17 10:12 Dose: 81 mg Cinacalcet (Sensipar) 30 mg PO DAILY [facility] Last Admin: 03/27/17 11:00 Dose: 30 mg Clonidine HCl (Catapres) 0.2 mg PO BID [facility] Last Admin: 03/27/17 10:11 Dose: 0.2 mg Diclofenac Sodium (Voltaren) 75 mg PO BID PRN PRN Reason: ` Escitalopram Oxalate (Lexapro) 10 mg PO HS [facility] Last Admin: 03/26/17 21:25 Dose: 10 mg Ferrous Sulfate (Feosol) 325 mg PO DAILY [facility] Last Admin: 03/27/17 10:11 Dose: 325 mg Ceftriaxone Sodium (Rocephin Iv 1 Gm Duplex) 50 mls @ 100 mls/hr IVPB DAILY [facility] Last Admin: 03/27/17 09:00 Dose: 100 mls/hr Vancomycin/Sodium Chloride (Vancomycin 1 Gm/Ns 200 Ml) 1 gm in 200 mls @ 133 mls/hr IVPB [facility] Stop: 04/01/17 09:01 Last Admin: 03/27/17 10:13 Dose: 133 mls/hr Cefazolin Sodium 250 mg/ (Peritoneal Dialysis Solution) 2,000 mls @ 0 mls/hr IP Q6 [facility] PRN Reason: UD Last Admin: 03/27/17 12:00 Dose: 100 mls/hr Lisinopril (Zestril) 20 mg PO DAILY [facility] Last Admin: 03/27/17 10:11 Dose: 20 mg Minoxidil (Minoxidil) 5 mg PO BID [facility] Last Admin: 03/27/17 10:13 Dose: 5 mg Morphine Sulfate (Morphine) 2 mg IVP Q4 PRN PRN Reason: Pain, moderate (4-7) Last Admin: 03/27/17 14:05 Dose: 2 mg Ondansetron HCl (Zofran Inj) 4 mg IVP Q6H PRN PRN Reason: Nausea/Vomiting Last Admin: 03/27/17 14:23 Dose: 4 mg - Labs Labs: 03/27/17 07:23 03/27/17 07:23 - Constitutional Appears: No Acute Distress, Chronically Ill - Head Exam Head Exam: ATRAUMATIC, NORMAL INSPECTION - Eye Exam Eye Exam: EOMI, Normal appearance - Neck Exam Neck Exam: Normal Inspection. absent: Tenderness - Respiratory Exam Respiratory Exam: Clear to Ausculation Bilateral, NORMAL BREATHING PATTERN - Cardiovascular Exam Cardiovascular Exam: REGULAR RHYTHM, +S1 - GI/Abdominal Exam GI & Abdominal Exam: Soft, Tenderness - Extremities Exam Extremities Exam: Normal Inspection. absent: Tenderness - Neurological Exam Neurological Exam: Alert, CN II-XII Intact - Skin Skin Exam: Dry, Warm Assessment and Plan (1) Peritonitis Status: Acute (2) Hypertensive chronic kidney disease with stage 5 chronic kidney disease or end stage renal disease Status: Acute (3) ESRD (end stage renal disease) Status: Acute (4) Acute peritonitis Status: Acute - Assessment and Plan (Free Text) Plan: Continue IP ABs, ID added IV rocephin Same PD Same BP meds pain management
--- NOTE | 2017-03-27 15:08 | CP.PCM.PN ---
Subjective - Date & Time of Evaluation Date of Evaluation: 03/27/17 Time of Evaluation: 07:00 - Subjective Subjective: Still c/o abdominal pains Has new temp elevation now-100.8 previous PD culture negative Objective - Vital Signs/Intake and Output Vital Signs (last 24 hours): Temp Pulse Resp BP Pulse Ox 99.0 F 75 18 103/62 96 03/27/17 08:16 03/27/17 08:16 03/27/17 08:16 03/27/17 08:16 03/27/17 08:16 Intake and Output: 03/27/17 03/27/17 06:59 18:59 Intake Total 320 Balance 320 - Medications Medications: Current Medications Amlodipine Besylate (Norvasc) 10 mg PO DAILY [facility] Last Admin: 03/27/17 10:12 Dose: 10 mg Aspirin (Ecotrin) 81 mg PO DAILY [facility] Last Admin: 03/27/17 10:12 Dose: 81 mg Calcium Acetate (Phoslo) 667 mg PO TIDCC [facility] Cinacalcet (Sensipar) 30 mg PO DAILY [facility] Last Admin: 03/27/17 11:00 Dose: 30 mg Clonidine HCl (Catapres) 0.2 mg PO BID [facility] Last Admin: 03/27/17 10:11 Dose: 0.2 mg Diclofenac Sodium (Voltaren) 75 mg PO BID PRN PRN Reason: ` Escitalopram Oxalate (Lexapro) 10 mg PO HS [facility] Last Admin: 03/26/17 21:25 Dose: 10 mg Ferrous Sulfate (Feosol) 325 mg PO DAILY [facility] Last Admin: 03/27/17 10:11 Dose: 325 mg Ceftriaxone Sodium (Rocephin Iv 1 Gm Duplex) 50 mls @ 100 mls/hr IVPB DAILY [facility] Last Admin: 03/27/17 09:00 Dose: 100 mls/hr Vancomycin/Sodium Chloride (Vancomycin 1 Gm/Ns 200 Ml) 1 gm in 200 mls @ 133 mls/hr IVPB [facility] Stop: 04/01/17 09:01 Last Admin: 03/27/17 10:13 Dose: 133 mls/hr Cefazolin Sodium 250 mg/ (Peritoneal Dialysis Solution) 2,000 mls @ 0 mls/hr IP Q6 [facility] PRN Reason: UD Last Admin: 03/27/17 12:00 Dose: 100 mls/hr Lisinopril (Zestril) 20 mg PO DAILY [facility] Last Admin: 03/27/17 10:11 Dose: 20 mg Minoxidil (Minoxidil) 5 mg PO BID [facility] Last Admin: 03/27/17 10:13 Dose: 5 mg Morphine Sulfate (Morphine) 2 mg IVP Q4 PRN PRN Reason: Pain, moderate (4-7) Last Admin: 03/27/17 14:05 Dose: 2 mg Ondansetron HCl (Zofran Inj) 4 mg IVP Q6H PRN PRN Reason: Nausea/Vomiting Last Admin: 03/27/17 14:23 Dose: 4 mg - Labs Labs: 03/27/17 07:23 03/27/17 07:23 - Constitutional Appears: Non-toxic, Chronically Ill - Head Exam Head Exam: NORMOCEPHALIC - Eye Exam Eye Exam: PERRL - ENT Exam ENT Exam: Mucous Membranes Dry - Neck Exam Neck Exam: absent: Lymphadenopathy - Respiratory Exam Respiratory Exam: Decreased Breath Sounds - Cardiovascular Exam Cardiovascular Exam: REGULAR RHYTHM - GI/Abdominal Exam GI & Abdominal Exam: Distended, Soft - Rectal Exam Rectal Exam: Deferred - Exam Exam: NORMAL INSPECTION Assessment and Plan (1) Abdominal pain Status: Acute (2) ESRD (end stage renal disease) Status: Acute (3) Patient on peritoneal dialysis Status: Acute (4) Peritonitis Status: Acute - Assessment and Plan (Free Text) Assessment: cultures so far neg switch from rocephin to cefepime if ok with renal
[2017-03-27] MEDS ORDERED: Cefepime IV 1 gm in Dextrose 1 GM/50 ML BAG IVPB SCH (15:15)
[2017-03-27] MEDS: Cefepime IV 1 gm in Dextrose 1 GM/50 ML BAG IVPB SCH (18:18)
[2017-03-28] MEDS: CEFAZOLIN IP SCH ×4 (00:16→19:00)
[2017-03-28] MEDS: DIANEAL PD IP SCH ×4 (00:16→19:00)
[2017-03-28 07:33] LABS: BASO % 0.5 % (0.0-2.0); EOS # 0.1 K/uL (0.0-0.7); LYMPH # 0.7 K/uL (1.0-4.3); LYMPH % 12.3 % (20.0-40.0); MEAN CELL VOLUME 89.2 fL (81.0-99.0); MEAN CORPUSCULAR HEMOGLOBIN 30.6 pg (27.0-31.0); MEAN CORPUSCULAR HGB CONC 34.3 g/dL (33.0-37.0); MEAN PLATELET VOLUME 8.1 fL (7.2-11.7); MONO # 0.5 K/uL (0.0-0.8); MONO % 8.6 % (0.0-10.0); NRBC % 0.1 % (0.0-2.0); RED CELL DISTRIBUTION WIDTH 14.4 % (11.5-14.5)
[2017-03-28 08:10] LABS: ALB/GLOB RATIO 1.5 (1.0-2.1); BILIRUBIN,TOTAL 0.5 mg/dL (0.2-1.3); CALCIUM 8.1 mg/dl (8.6-10.4); MAGNESIUM 1.6 mg/dL (1.6-2.3); POTASSIUM 3.8 mmol/L (3.6-5.2); TOTAL PROTEIN 4.9 g/dL (6.3-8.3)
--- NOTE | 2017-03-28 09:55 | CP.PCM.PN ---
Subjective - Date & Time of Evaluation Date of Evaluation: 03/28/17 Time of Evaluation: 09:52 - Subjective Subjective: Notes reviewed Id evaluation noted Patient comfortable in bed, no distress Reports abdominal pain as previous No chills or fever noted Appetite good Tolerating pd without pain during exchanges No cp or palp, no sob or cough No n/v/d 10 ros negative unless reported above Objective - Vital Signs/Intake and Output Vital Signs (last 24 hours): Temp Pulse Resp BP Pulse Ox 98.6 F 67 18 102/50 L 96 03/28/17 07:35 03/28/17 07:35 03/28/17 07:35 03/28/17 07:35 03/28/17 07:35 - Medications Medications: Current Medications Acetaminophen (Tylenol 325mg Tab) 650 mg PO Q6 PRN PRN Reason: Temperature Last Admin: 03/27/17 17:07 Dose: 650 mg Amlodipine Besylate (Norvasc) 10 mg PO DAILY [facility] Last Admin: 03/27/17 10:12 Dose: 10 mg Aspirin (Ecotrin) 81 mg PO DAILY [facility] Last Admin: 03/27/17 10:12 Dose: 81 mg Calcium Acetate (Phoslo) 667 mg PO TIDCC [facility] Last Admin: 03/28/17 08:19 Dose: 667 mg Cinacalcet (Sensipar) 30 mg PO DAILY [facility] Last Admin: 03/27/17 11:00 Dose: 30 mg Clonidine HCl (Catapres) 0.2 mg PO BID [facility] Last Admin: 03/27/17 18:56 Dose: Not Given Diclofenac Sodium (Voltaren) 75 mg PO BID PRN PRN Reason: ` Escitalopram Oxalate (Lexapro) 10 mg PO HS [facility] Last Admin: 03/27/17 22:00 Dose: 10 mg Ferrous Sulfate (Feosol) 325 mg PO DAILY [facility] Last Admin: 03/27/17 10:11 Dose: 325 mg Vancomycin/Sodium Chloride (Vancomycin 1 Gm/Ns 200 Ml) 1 gm in 200 mls @ 133 mls/hr IVPB MWF [facility] Stop: 04/01/17 09:01 Last Admin: 03/27/17 10:13 Dose: 133 mls/hr Cefazolin Sodium 250 mg/ (Peritoneal Dialysis Solution) 2,000 mls @ 0 mls/hr IP Q6 [facility] PRN Reason: UD Last Admin: 03/28/17 06:27 Dose: 2,000 mls/hr Cefepime HCl (Maxipime Iv 1 Gm Premix) 1 gm in 50 mls @ 100 mls/hr IVPB Q24H [facility] Last Admin: 03/27/17 18:18 Dose: 100 mls/hr Lisinopril (Zestril) 20 mg PO DAILY [facility] Last Admin: 03/27/17 10:11 Dose: 20 mg Minoxidil (Minoxidil) 5 mg PO BID [facility] Last Admin: 03/27/17 18:57 Dose: Not Given Morphine Sulfate (Morphine) 2 mg IVP Q4 PRN PRN Reason: Pain, moderate (4-7) Last Admin: 03/28/17 08:21 Dose: 2 mg Ondansetron HCl (Zofran Inj) 4 mg IVP Q6H PRN PRN Reason: Nausea/Vomiting Last Admin: 03/27/17 14:23 Dose: 4 mg - Labs Labs: 03/28/17 07:00 03/28/17 07:00 - Constitutional Appears: Non-toxic, Older Than Stated Age - Head Exam Head Exam: ATRAUMATIC, NORMOCEPHALIC - Eye Exam Eye Exam: EOMI, Normal appearance - ENT Exam ENT Exam: Mucous Membranes Moist, Normal Oropharynx - Neck Exam Neck Exam: absent: Lymphadenopathy, Thyromegaly - Respiratory Exam Respiratory Exam: Clear to Ausculation Bilateral. absent: Rales, Rhonchi, Wheezes - Cardiovascular Exam Cardiovascular Exam: RRR, +S1, +S2. absent: JVD - GI/Abdominal Exam GI & Abdominal Exam: Soft, Normal Bowel Sounds. absent: Guarding, Rigid, Tenderness - Extremities Exam Extremities Exam: absent: Pedal Edema, Tenderness - Neurological Exam Neurological Exam: Alert, Awake - Skin Skin Exam: Dry, Intact Assessment and Plan (1) Abdominal pain Status: Acute (2) ESRD (end stage renal disease) Status: Acute (3) Peritonitis Status: Acute (4) Anemia Status: Acute - Assessment and Plan (Free Text) Assessment: Maintain pd Abx as ordered by ID Cultures remain negative Monitor bp - stop amlodipine
--- NOTE | 2017-03-28 16:05 | CP.PCM.PN ---
Subjective - Date & Time of Evaluation Date of Evaluation: 03/28/17 Time of Evaluation: 10:20 - Subjective Subjective: clinically same Objective - Vital Signs/Intake and Output Vital Signs (last 24 hours): Temp Pulse Resp BP Pulse Ox 98.6 F 72 18 104/54 L 96 03/28/17 12:00 03/28/17 12:00 03/28/17 12:00 03/28/17 12:00 03/28/17 07:35 - Medications Medications: Current Medications Acetaminophen (Tylenol 325mg Tab) 650 mg PO Q6 PRN PRN Reason: Temperature Last Admin: 03/27/17 17:07 Dose: 650 mg Aspirin (Ecotrin) 81 mg PO DAILY [facility] Last Admin: 03/28/17 10:46 Dose: 81 mg Calcium Acetate (Phoslo) 667 mg PO TIDCC [facility] Last Admin: 03/28/17 12:54 Dose: 667 mg Cinacalcet (Sensipar) 30 mg PO DAILY [facility] Last Admin: 03/28/17 10:46 Dose: 30 mg Clonidine HCl (Catapres) 0.2 mg PO BID [facility] Last Admin: 03/28/17 10:47 Dose: Not Given Diclofenac Sodium (Voltaren) 75 mg PO BID PRN PRN Reason: ` Escitalopram Oxalate (Lexapro) 10 mg PO HS [facility] Last Admin: 03/27/17 22:00 Dose: 10 mg Ferrous Sulfate (Feosol) 325 mg PO DAILY [facility] Last Admin: 03/28/17 10:48 Dose: 325 mg Vancomycin/Sodium Chloride (Vancomycin 1 Gm/Ns 200 Ml) 1 gm in 200 mls @ 133 mls/hr IVPB MWF [facility] Stop: 04/01/17 09:01 Last Admin: 03/27/17 10:13 Dose: 133 mls/hr Cefazolin Sodium 250 mg/ (Peritoneal Dialysis Solution) 2,000 mls @ 0 mls/hr IP Q6 [facility] PRN Reason: UD Last Admin: 03/28/17 13:57 Dose: Not Given Cefepime HCl (Maxipime Iv 1 Gm Premix) 1 gm in 50 mls @ 100 mls/hr IVPB Q24H [facility] Last Admin: 03/27/17 18:18 Dose: 100 mls/hr Lisinopril (Zestril) 20 mg PO DAILY [facility] Last Admin: 03/28/17 10:48 Dose: 20 mg Minoxidil (Minoxidil) 5 mg PO BID [facility] Last Admin: 03/28/17 10:49 Dose: Not Given Morphine Sulfate (Morphine) 2 mg IVP Q4 PRN PRN Reason: Pain, moderate (4-7) Last Admin: 03/28/17 12:54 Dose: 2 mg Ondansetron HCl (Zofran Inj) 4 mg IVP Q6H PRN PRN Reason: Nausea/Vomiting Last Admin: 03/27/17 14:23 Dose: 4 mg - Labs Labs: 03/28/17 07:00 03/28/17 07:00 - Constitutional Appears: Well - Head Exam Head Exam: ATRAUMATIC, NORMAL INSPECTION, NORMOCEPHALIC - Eye Exam Eye Exam: EOMI, Normal appearance, PERRL Pupil Exam: NORMAL ACCOMODATION, PERRL - ENT Exam ENT Exam: Mucous Membranes Moist, Normal Exam - Neck Exam Neck Exam: Full ROM, Normal Inspection. absent: Lymphadenopathy - Respiratory Exam Respiratory Exam: Decreased Breath Sounds - Cardiovascular Exam Cardiovascular Exam: REGULAR RHYTHM, +S1, +S2 - GI/Abdominal Exam GI & Abdominal Exam: Soft, Diminished Bowel Sounds - Rectal Exam Rectal Exam: Deferred Assessment and Plan (1) Abdominal pain Status: Acute (2) ESRD (end stage renal disease) Status: Acute (3) Hypertensive chronic kidney disease with stage 5 chronic kidney disease or end stage renal disease Status: Acute (4) Hypertensive urgency Status: Acute (5) Patient on peritoneal dialysis Status: Acute (6) Peritonitis Status: Acute (7) AMPARO (acute kidney injury) Status: Acute (8) Acute cholecystitis Status: Acute (9) Acute peritonitis Status: Acute (10) Anemia Status: Acute (11) Benign hypertensive kidney disease with end stage renal disease Status: Acute (12) CHF (congestive heart failure) Status: Acute (13) CKD (chronic kidney disease) stage 5, GFR less than 15 ml/min Status: Acute (14) CKD stage 5 secondary to hypertension Status: Acute (15) Chest pain Status: Acute (16) Dependency on pain medication Status: Acute (17) ESRD (end stage renal disease) Status: Acute (18) ESRD (end stage renal disease) Status: Acute (19) Elevated lipase Status: Acute (20) End stage renal disease Status: Acute (21) HTN (hypertension) Status: Acute (22) Hypertension Status: Acute (23) Hypertensive chronic kidney disease with stage 5 chronic kidney disease or end stage renal disease Status: Acute (24) Hypertensive emergency Status: Acute (25) Hypokalemia Status: Acute (26) Hypokalemia Status: Acute (27) Hypokalemia Status: Acute (28) Hypoxia Status: Acute (29) Intractable abdominal pain Status: Acute (30) NSTEMI (non-ST elevated myocardial infarction) Status: Acute (31) Nausea Status: Acute (32) Nausea & vomiting Status: Acute (33) Nephrolithiasis Status: Acute (34) PUD (peptic ulcer disease) Status: Acute (35) Pneumonia Status: Acute (36) Prophylactic measure Status: Acute (37) Prophylactic measure Status: Acute (38) Proteinuria Status: Acute (39) Renal failure Status: Acute (40) Renal insufficiency Status: Acute (41) Uncontrolled hypertension Status: Acute (42) Vomiting Status: Acute - Assessment and Plan (Free Text) Plan: Patient examined. No acute overnight events. Patient continues to have abdominal pain. Continue cefazolin and vancomycin. Continue cefepime. Continue aspirin, antihypertensive medications. Continue supportive care.
[2017-03-28] MEDS: Cefepime IV 1 gm in Dextrose 1 GM/50 ML BAG IVPB SCH (17:02)
[2017-03-28] MEDS: Promethazine DM 12.5 mg-30 mg/10 ml Syrup PO PRN (22:47)
[2017-03-29] MEDS: DIANEAL PD IP SCH ×4 (00:25→18:57)
[2017-03-29] MEDS: CEFAZOLIN IP SCH ×4 (00:25→18:57)
--- NOTE | 2017-03-29 12:37 | CP.PCM.PN ---
Subjective - Date & Time of Evaluation Date of Evaluation: 03/29/17 Time of Evaluation: 10:40 - Subjective Subjective: clinically same Objective - Vital Signs/Intake and Output Vital Signs (last 24 hours): Temp Pulse Resp BP Pulse Ox 98.1 F 72 20 149/94 H 97 03/29/17 07:40 03/29/17 07:40 03/29/17 07:40 03/29/17 07:40 03/29/17 07:40 Intake and Output: 03/29/17 03/29/17 06:59 18:59 Intake Total 120 Balance 120 - Medications Medications: Current Medications Acetaminophen (Tylenol 325mg Tab) 650 mg PO Q6 PRN PRN Reason: Temperature Last Admin: 03/27/17 17:07 Dose: 650 mg Aspirin (Ecotrin) 81 mg PO DAILY [facility] Last Admin: 03/29/17 10:53 Dose: 81 mg Calcium Acetate (Phoslo) 667 mg PO TIDCC [facility] Last Admin: 03/29/17 08:03 Dose: 667 mg Cinacalcet (Sensipar) 30 mg PO DAILY [facility] Last Admin: 03/29/17 10:55 Dose: 30 mg Clonidine HCl (Catapres) 0.2 mg PO BID [facility] Last Admin: 03/29/17 10:53 Dose: 0.2 mg Diclofenac Sodium (Voltaren) 75 mg PO BID PRN PRN Reason: ` Escitalopram Oxalate (Lexapro) 10 mg PO HS [facility] Last Admin: 03/28/17 21:11 Dose: 10 mg Ferrous Sulfate (Feosol) 325 mg PO DAILY [facility] Last Admin: 03/29/17 10:53 Dose: 325 mg Vancomycin/Sodium Chloride (Vancomycin 1 Gm/Ns 200 Ml) 1 gm in 200 mls @ 133 mls/hr IVPB MWF [facility] Stop: 04/01/17 09:01 Last Admin: 03/27/17 10:13 Dose: 133 mls/hr Cefazolin Sodium 250 mg/ (Peritoneal Dialysis Solution) 2,000 mls @ 0 mls/hr IP Q6 [facility] PRN Reason: UD Last Admin: 03/29/17 06:12 Dose: 2,000 mls/hr Cefepime HCl (Maxipime Iv 1 Gm Premix) 1 gm in 50 mls @ 100 mls/hr IVPB Q24H [facility] Last Admin: 03/28/17 17:02 Dose: 100 mls/hr Lisinopril (Zestril) 20 mg PO DAILY [facility] Last Admin: 03/29/17 10:53 Dose: 20 mg Minoxidil (Minoxidil) 5 mg PO BID [facility] Last Admin: 03/29/17 10:53 Dose: 5 mg Morphine Sulfate (Morphine) 2 mg IVP Q4 PRN PRN Reason: Pain, moderate (4-7) Last Admin: 03/29/17 10:53 Dose: 2 mg Ondansetron HCl (Zofran Inj) 4 mg IVP Q6H PRN PRN Reason: Nausea/Vomiting Last Admin: 03/27/17 14:23 Dose: 4 mg Promethazine HCl/Dextromethorphan (Phenergan Dm Syrup) 10 ml PO Q8 PRN PRN Reason: Cough Last Admin: 03/28/17 22:47 Dose: 10 ml - Labs Labs: 03/28/17 07:00 03/28/17 07:00 - Constitutional Appears: Well - Head Exam Head Exam: ATRAUMATIC, NORMAL INSPECTION, NORMOCEPHALIC - Eye Exam Eye Exam: EOMI, Normal appearance, PERRL Pupil Exam: NORMAL ACCOMODATION, PERRL - ENT Exam ENT Exam: Mucous Membranes Moist, Normal Exam - Neck Exam Neck Exam: Full ROM, Normal Inspection. absent: Lymphadenopathy - Respiratory Exam Respiratory Exam: Clear to Ausculation Bilateral, NORMAL BREATHING PATTERN - Cardiovascular Exam Cardiovascular Exam: REGULAR RHYTHM, +S1, +S2. absent: Murmur - GI/Abdominal Exam GI & Abdominal Exam: Soft, Normal Bowel Sounds. absent: Tenderness - Rectal Exam Rectal Exam: Deferred - Extremities Exam Extremities Exam: Full ROM, Normal Capillary Refill, Normal Inspection. absent : Joint Swelling, Pedal Edema Assessment and Plan (1) Abdominal pain Status: Acute (2) ESRD (end stage renal disease) Status: Acute (3) Hypertensive chronic kidney disease with stage 5 chronic kidney disease or end stage renal disease Status: Acute (4) Hypertensive urgency Status: Acute (5) Patient on peritoneal dialysis Status: Acute (6) Peritonitis Status: Acute (7) AMPARO (acute kidney injury) Status: Acute (8) Acute cholecystitis Status: Acute (9) Acute peritonitis Status: Acute (10) Anemia Status: Acute (11) Benign hypertensive kidney disease with end stage renal disease Status: Acute (12) CHF (congestive heart failure) Status: Acute (13) CKD (chronic kidney disease) stage 5, GFR less than 15 ml/min Status: Acute (14) CKD stage 5 secondary to hypertension Status: Acute (15) Chest pain Status: Acute (16) Dependency on pain medication Status: Acute (17) ESRD (end stage renal disease) Status: Acute (18) ESRD (end stage renal disease) Status: Acute (19) Elevated lipase Status: Acute (20) End stage renal disease Status: Acute (21) HTN (hypertension) Status: Acute (22) Hypertension Status: Acute (23) Hypertensive chronic kidney disease with stage 5 chronic kidney disease or end stage renal disease Status: Acute (24) Hypertensive emergency Status: Acute (25) Hypokalemia Status: Acute (26) Hypokalemia Status: Acute (27) Hypokalemia Status: Acute (28) Hypoxia Status: Acute (29) Intractable abdominal pain Status: Acute (30) NSTEMI (non-ST elevated myocardial infarction) Status: Acute (31) Nausea Status: Acute (32) Nausea & vomiting Status: Acute (33) Nephrolithiasis Status: Acute (34) PUD (peptic ulcer disease) Status: Acute (35) Pneumonia Status: Acute (36) Prophylactic measure Status: Acute (37) Prophylactic measure Status: Acute (38) Proteinuria Status: Acute (39) Renal failure Status: Acute (40) Renal insufficiency Status: Acute (41) Uncontrolled hypertension Status: Acute (42) Vomiting Status: Acute - Assessment and Plan (Free Text) Plan: Patient examined. Patient clinically the same. Continues to have abdominal pain. Continue aspirin. Continue cefazolin, cefepime and vancomycin. Continue antihypertensive medications. Continue supportive care.
--- NOTE | 2017-03-29 13:46 | CP.PCM.PN ---
Subjective - Date & Time of Evaluation Date of Evaluation: 03/29/17 Time of Evaluation: 09:00 - Subjective Subjective: t max lower less fever and less abd pain Objective - Vital Signs/Intake and Output Vital Signs (last 24 hours): Temp Pulse Resp BP Pulse Ox 98.4 F 79 18 137/86 97 03/29/17 12:37 03/29/17 12:37 03/29/17 12:37 03/29/17 12:37 03/29/17 07:40 Intake and Output: 03/29/17 03/29/17 06:59 18:59 Intake Total 120 Balance 120 - Medications Medications: Current Medications Acetaminophen (Tylenol 325mg Tab) 650 mg PO Q6 PRN PRN Reason: Temperature Last Admin: 03/27/17 17:07 Dose: 650 mg Aspirin (Ecotrin) 81 mg PO DAILY [facility] Last Admin: 03/29/17 10:53 Dose: 81 mg Calcium Acetate (Phoslo) 667 mg PO TIDCC [facility] Last Admin: 03/29/17 13:04 Dose: 667 mg Cinacalcet (Sensipar) 30 mg PO DAILY [facility] Last Admin: 03/29/17 10:55 Dose: 30 mg Clonidine HCl (Catapres) 0.2 mg PO BID [facility] Last Admin: 03/29/17 10:53 Dose: 0.2 mg Diclofenac Sodium (Voltaren) 75 mg PO BID PRN PRN Reason: ` Escitalopram Oxalate (Lexapro) 10 mg PO HS [facility] Last Admin: 03/28/17 21:11 Dose: 10 mg Ferrous Sulfate (Feosol) 325 mg PO DAILY [facility] Last Admin: 03/29/17 10:53 Dose: 325 mg Vancomycin/Sodium Chloride (Vancomycin 1 Gm/Ns 200 Ml) 1 gm in 200 mls @ 133 mls/hr IVPB MWF [facility] Stop: 04/01/17 09:01 Last Admin: 03/27/17 10:13 Dose: 133 mls/hr Cefazolin Sodium 250 mg/ (Peritoneal Dialysis Solution) 2,000 mls @ 0 mls/hr IP Q6 [facility] PRN Reason: UD Last Admin: 03/29/17 06:12 Dose: 2,000 mls/hr Cefepime HCl (Maxipime Iv 1 Gm Premix) 1 gm in 50 mls @ 100 mls/hr IVPB Q24H [facility] Last Admin: 03/28/17 17:02 Dose: 100 mls/hr Lisinopril (Zestril) 20 mg PO DAILY [facility] Last Admin: 03/29/17 10:53 Dose: 20 mg Minoxidil (Minoxidil) 5 mg PO BID [facility] Last Admin: 03/29/17 10:53 Dose: 5 mg Morphine Sulfate (Morphine) 2 mg IVP Q4 PRN PRN Reason: Pain, moderate (4-7) Last Admin: 03/29/17 10:53 Dose: 2 mg Ondansetron HCl (Zofran Inj) 4 mg IVP Q6H PRN PRN Reason: Nausea/Vomiting Last Admin: 03/27/17 14:23 Dose: 4 mg Promethazine HCl/Dextromethorphan (Phenergan Dm Syrup) 10 ml PO Q8 PRN PRN Reason: Cough Last Admin: 03/28/17 22:47 Dose: 10 ml - Labs Labs: 03/28/17 07:00 03/28/17 07:00 - Constitutional Appears: Well - Head Exam Head Exam: ATRAUMATIC, NORMAL INSPECTION, NORMOCEPHALIC - Eye Exam Eye Exam: EOMI, Normal appearance, PERRL Pupil Exam: NORMAL ACCOMODATION, PERRL - ENT Exam ENT Exam: Mucous Membranes Moist, Normal Exam - Neck Exam Neck Exam: Full ROM, Normal Inspection. absent: Lymphadenopathy - Respiratory Exam Respiratory Exam: Clear to Ausculation Bilateral, NORMAL BREATHING PATTERN - Cardiovascular Exam Cardiovascular Exam: REGULAR RHYTHM, +S1, +S2. absent: Murmur - GI/Abdominal Exam GI & Abdominal Exam: Soft, Normal Bowel Sounds. absent: Tenderness - Rectal Exam Rectal Exam: NORMAL INSPECTION - Exam Exam: NORMAL INSPECTION - Extremities Exam Extremities Exam: Full ROM, Normal Capillary Refill, Normal Inspection. absent : Joint Swelling, Pedal Edema - Back Exam Back Exam: NORMAL INSPECTION - Neurological Exam Neurological Exam: Alert, Awake, CN II-XII Intact, Normal Gait, Oriented x3 - Psychiatric Exam Psychiatric exam: Normal Affect, Normal Mood - Skin Skin Exam: Dry, Intact, Normal Color, Warm Assessment and Plan (1) Abdominal pain Status: Acute (2) ESRD (end stage renal disease) Status: Acute (3) Patient on peritoneal dialysis Status: Acute (4) Peritonitis Status: Acute
[2017-03-29] MEDS: Promethazine DM 12.5 mg-30 mg/10 ml Syrup PO PRN (17:32)
[2017-03-29] MEDS: Cefepime IV 1 gm in Dextrose 1 GM/50 ML BAG IVPB SCH (17:33)
[2017-03-30] MEDS: DIANEAL PD IP SCH ×4 (00:20→17:18)
[2017-03-30] MEDS: CEFAZOLIN IP SCH ×4 (00:20→17:18)
[2017-03-30] MEDS: Promethazine DM 12.5 mg-30 mg/10 ml Syrup PO PRN ×2 (06:25→23:14)
[2017-03-30] MEDS: Vancomycin 1 gm/NS 200 ml 1 GM/200 ML BAG IVPB SCH (09:35)
[2017-03-30] MEDS: Pantoprazole 40 mg EC Tab PO SCH (09:39)
--- NOTE | 2017-03-30 10:42 | CP.PCM.PN ---
<CamdendariaWilliam - Last Filed: 03/30/17 15:26> Subjective - Date & Time of Evaluation Date of Evaluation: 03/30/17 Time of Evaluation: 07:15 - Subjective Subjective: PGY2 Resident - Medicine Progress Note Patient seen and examined at bedside. No acute distress. No overnight events. Reports mild abdominal pain, well controlled today. Denies fever, chills, nausea /vomiting, diarrhea/constipation, dysuria, urinary frequency, change in urinary stream, or any additional acute complaints. Objective - Vital Signs/Intake and Output Vital Signs (last 24 hours): Temp Pulse Resp BP Pulse Ox 98.4 F 69 20 132/78 97 03/30/17 08:12 03/30/17 08:12 03/30/17 08:12 03/30/17 08:12 03/30/17 08:12 Intake and Output: 03/30/17 03/30/17 06:59 18:59 Intake Total 488 Balance 488 - Medications Medications: Current Medications Acetaminophen (Tylenol 325mg Tab) 650 mg PO Q6 PRN PRN Reason: Temperature Last Admin: 03/27/17 17:07 Dose: 650 mg Aspirin (Ecotrin) 81 mg PO DAILY [facility] Last Admin: 03/30/17 09:31 Dose: 81 mg Calcium Acetate (Phoslo) 667 mg PO TIDCC [facility] Last Admin: 03/30/17 09:31 Dose: 667 mg Cinacalcet (Sensipar) 30 mg PO DAILY [facility] Last Admin: 03/29/17 10:55 Dose: 30 mg Clonidine HCl (Catapres) 0.2 mg PO BID [facility] Last Admin: 03/30/17 09:32 Dose: 0.2 mg Diclofenac Sodium (Voltaren) 75 mg PO BID PRN PRN Reason: ` Escitalopram Oxalate (Lexapro) 10 mg PO HS [facility] Last Admin: 03/29/17 21:07 Dose: 10 mg Ferrous Sulfate (Feosol) 325 mg PO DAILY [facility] Last Admin: 03/30/17 09:32 Dose: 325 mg Vancomycin/Sodium Chloride (Vancomycin 1 Gm/Ns 200 Ml) 1 gm in 200 mls @ 133 mls/hr IVPB MWF [facility] Stop: 04/01/17 09:01 Last Admin: 03/30/17 09:35 Dose: 133 mls/hr Cefazolin Sodium 250 mg/ (Peritoneal Dialysis Solution) 2,000 mls @ 0 mls/hr IP Q6 [facility] PRN Reason: UD Last Admin: 03/30/17 06:00 Dose: 2,000 mls/hr Cefepime HCl (Maxipime Iv 1 Gm Premix) 1 gm in 50 mls @ 100 mls/hr IVPB Q24H [facility] Last Admin: 03/29/17 17:33 Dose: 100 mls/hr Lisinopril (Zestril) 20 mg PO DAILY [facility] Last Admin: 03/30/17 09:32 Dose: 20 mg Minoxidil (Minoxidil) 5 mg PO BID [facility] Last Admin: 03/30/17 09:32 Dose: 5 mg Morphine Sulfate (Morphine) 2 mg IVP Q4 PRN PRN Reason: Pain, moderate (4-7) Last Admin: 03/30/17 09:33 Dose: 2 mg Ondansetron HCl (Zofran Inj) 4 mg IVP Q6H PRN PRN Reason: Nausea/Vomiting Last Admin: 03/27/17 14:23 Dose: 4 mg Pantoprazole Sodium (Protonix Ec Tab) 40 mg PO DAILY [facility] Last Admin: 03/30/17 09:39 Dose: 40 mg Promethazine HCl/Dextromethorphan (Phenergan Dm Syrup) 10 ml PO Q8 PRN PRN Reason: Cough Last Admin: 03/30/17 06:25 Dose: 10 ml - Labs Labs: 03/28/17 07:00 03/28/17 07:00 - Additional Findings Additional findings: - Constitutional Appears: Non-toxic, No Acute Distress - Head Exam Head Exam: ATRAUMATIC, NORMAL INSPECTION, NORMOCEPHALIC - Eye Exam Eye Exam: EOMI - ENT Exam ENT Exam: Mucous Membranes Moist - Neck Exam Neck Exam: Full ROM, Normal Inspection - Respiratory Exam Respiratory Exam: NORMAL BREATHING PATTERN. absent: Respiratory Distress - Cardiovascular Exam Cardiovascular Exam: Regular Rate, +S1, +S2 - GI/Abdominal Exam GI & Abdominal Exam: Soft, Normal Bowel Sounds, Tenderness (mild, RLQ) - Extremities Exam Extremities Exam: Full ROM, Normal Inspection - Neurological Exam Neurological Exam: Alert, Awake, Oriented x3 - Psychiatric Exam Psychiatric exam: Normal Affect, Normal Mood - Skin Skin Exam: Dry, Intact, Normal Color, Warm Assessment and Plan - Assessment and Plan (Free Text) Assessment: 1. Abdominal pain 03/30: PD fluid with staph epi. Continue IV Abx. ephro consult. recs appreciated. Dr. Jordan -renal diet -blood cultures negative x48hrs -body fluid culture negative x3days -morphine2 mg q 4 hrs IV prn severe pain 2. hx of intraperitoneal infection 03/30: PD fluid with staph epi. Continue IV Abx. -ID consult. Dr. Sosa. recs appreciated. -Afebrile since 03/27, Last temp 101.5F -cefazolin IV (start date 03/26) -ceftriaxone IV 1 g daily (start date 03/26) -vancomycin 1 g MWF (start date 03/27) 3. hx of anxiety -continue lexapro daily 4. hx of peritoneal dialysis nephro consult as above. continue cinacalcet 5. hx of HTN -continue lisinopril 20 po daily -continue minoxidil 5 PO BID -continue clonidine .2 mg PO BID -continue norvasc PO daily -continue asa 81 mg po daily 6. Anemia -normocytic -continue ferrous sulfate 325 PO daily 7. GI/DVT ppx -protonix daily -SCDs Case discussed with attending. All medical management as per Dr. Denis Orr <Vanessa Orr - Last Filed: 04/06/17 17:08> Objective - Vital Signs/Intake and Output Vital Signs (last 24 hours): Temp Pulse Resp BP Pulse Ox 98.4 F 70 20 128/81 97 04/06/17 07:40 04/06/17 07:40 04/06/17 07:40 04/06/17 07:40 04/06/17 07:40 Intake and Output: 04/06/17 04/06/17 06:59 18:59 Intake Total 240 Balance 240 - Labs Labs: 04/06/17 11:49 04/06/17 11:49 Assessment and Plan (1) Abdominal pain Status: Acute (2) ESRD (end stage renal disease) Status: Acute (3) Hypertensive chronic kidney disease with stage 5 chronic kidney disease or end stage renal disease Status: Acute (4) Hypertensive urgency Status: Acute (5) Patient on peritoneal dialysis Status: Acute (6) Peritonitis Status: Acute (7) AMPARO (acute kidney injury) Status: Acute (8) Acute cholecystitis Status: Acute (9) Acute peritonitis Status: Acute (10) Anemia Status: Acute (11) Benign hypertensive kidney disease with end stage renal disease Status: Acute (12) CHF (congestive heart failure) Status: Acute (13) CKD (chronic kidney disease) stage 5, GFR less than 15 ml/min Status: Acute (14) CKD stage 5 secondary to hypertension Status: Acute (15) Chest pain Status: Acute (16) Dependency on pain medication Status: Acute (17) ESRD (end stage renal disease) Status: Acute (18) ESRD (end stage renal disease) Status: Acute (19) Elevated lipase Status: Acute (20) End stage renal disease Status: Acute (21) HTN (hypertension) Status: Acute (22) Hypertension Status: Acute (23) Hypertensive chronic kidney disease with stage 5 chronic kidney disease or end stage renal disease Status: Acute (24) Hypertensive emergency Status: Acute (25) Hypokalemia Status: Acute (26) Hypokalemia Status: Acute (27) Hypokalemia Status: Acute (28) Hypoxia Status: Acute (29) Intractable abdominal pain Status: Acute (30) NSTEMI (non-ST elevated myocardial infarction) Status: Acute (31) Nausea Status: Acute (32) Nausea & vomiting Status: Acute (33) Nephrolithiasis Status: Acute (34) PUD (peptic ulcer disease) Status: Acute (35) Pneumonia Status: Acute (36) Prophylactic measure Status: Acute (37) Prophylactic measure Status: Acute (38) Proteinuria Status: Acute (39) Renal failure Status: Acute (40) Renal insufficiency Status: Acute (41) Uncontrolled hypertension Status: Acute (42) Vomiting Status: Acute Attending/Attestation - Attestation I have personally seen and examined this patient.: Yes I have fully participated in the care of the patient.: Yes I have reviewed all pertinent clinical information, including history, physical exam and plan: Yes Notes (Text): Patient examined. No acute overnight events. Mild abdominal pain present. Continue vancomycin, cefazolin and cefepime. Continue antihypertensive medications. Continue supportive care.
[2017-03-30 11:24] LABS: BASO % 0.5 % (0.0-2.0); EOS # 0.1 K/uL (0.0-0.7); EOS % 1.2 % (0.0-4.0); HEMATOCRIT 33.5 % (34.0-47.0); LYMPH # 0.6 K/uL (1.0-4.3); LYMPH % 9.9 % (20.0-40.0); MEAN CELL VOLUME 88.3 fL (81.0-99.0); MEAN PLATELET VOLUME 8.3 fL (7.2-11.7); MONO # 0.6 K/uL (0.0-0.8); MONO % 11.2 % (0.0-10.0); NRBC % 0.1 % (0.0-2.0); PLATELET COUNT 215 K/uL (130-400); RED CELL DISTRIBUTION WIDTH 14.1 % (11.5-14.5); WHITE BLOOD COUNT 5.7 K/uL (4.8-10.8)
[2017-03-30 12:00] LABS: ALB/GLOB RATIO 1.4 (1.0-2.1); BILIRUBIN,TOTAL 0.4 mg/dL (0.2-1.3); CALCIUM 8.2 mg/dl (8.6-10.4); MAGNESIUM 1.7 mg/dL (1.6-2.3); PHOSPHOROUS 2.8 mg/dL (2.5-4.5); POTASSIUM 3.5 mmol/L (3.6-5.2); TOTAL PROTEIN 5.1 g/dL (6.3-8.3)
[2017-03-30 12:02] LABS: EOSINOPHIL 1 % (0-4); NEUTROPHIL 81 % (50-75); TOTAL CELLS COUNTED 100
--- NOTE | 2017-03-30 12:13 | CP.PCM.PN ---
Subjective - Date & Time of Evaluation Date of Evaluation: 03/30/17 Time of Evaluation: 12:10 - Subjective Subjective: sl abdominal pains still blood cultures neg PD fluid with staph epi eating well; no new complaints still requires pain meds Objective - Vital Signs/Intake and Output Vital Signs (last 24 hours): Temp Pulse Resp BP Pulse Ox 98.4 F 69 20 132/78 97 03/30/17 08:12 03/30/17 08:12 03/30/17 08:12 03/30/17 08:12 03/30/17 08:12 Intake and Output: 03/30/17 03/30/17 06:59 18:59 Intake Total 488 Balance 488 - Medications Medications: Current Medications Acetaminophen (Tylenol 325mg Tab) 650 mg PO Q6 PRN PRN Reason: Temperature Last Admin: 03/27/17 17:07 Dose: 650 mg Aspirin (Ecotrin) 81 mg PO DAILY [facility] Last Admin: 03/30/17 09:31 Dose: 81 mg Calcium Acetate (Phoslo) 667 mg PO TIDCC [facility] Last Admin: 03/30/17 09:31 Dose: 667 mg Cinacalcet (Sensipar) 30 mg PO DAILY [facility] Last Admin: 03/30/17 11:01 Dose: 30 mg Clonidine HCl (Catapres) 0.2 mg PO BID [facility] Last Admin: 03/30/17 09:32 Dose: 0.2 mg Diclofenac Sodium (Voltaren) 75 mg PO BID PRN PRN Reason: ` Escitalopram Oxalate (Lexapro) 10 mg PO HS [facility] Last Admin: 03/29/17 21:07 Dose: 10 mg Ferrous Sulfate (Feosol) 325 mg PO DAILY [facility] Last Admin: 03/30/17 09:32 Dose: 325 mg Vancomycin/Sodium Chloride (Vancomycin 1 Gm/Ns 200 Ml) 1 gm in 200 mls @ 133 mls/hr IVPB MWF [facility] Stop: 04/01/17 09:01 Last Admin: 03/30/17 09:35 Dose: 133 mls/hr Cefazolin Sodium 250 mg/ (Peritoneal Dialysis Solution) 2,000 mls @ 0 mls/hr IP Q6 [facility] PRN Reason: UD Last Admin: 03/30/17 06:00 Dose: 2,000 mls/hr Cefepime HCl (Maxipime Iv 1 Gm Premix) 1 gm in 50 mls @ 100 mls/hr IVPB Q24H [facility] Last Admin: 03/29/17 17:33 Dose: 100 mls/hr Lisinopril (Zestril) 20 mg PO DAILY [facility] Last Admin: 03/30/17 09:32 Dose: 20 mg Minoxidil (Minoxidil) 5 mg PO BID [facility] Last Admin: 03/30/17 09:32 Dose: 5 mg Morphine Sulfate (Morphine) 2 mg IVP Q4 PRN PRN Reason: Pain, moderate (4-7) Last Admin: 03/30/17 09:33 Dose: 2 mg Ondansetron HCl (Zofran Inj) 4 mg IVP Q6H PRN PRN Reason: Nausea/Vomiting Last Admin: 03/27/17 14:23 Dose: 4 mg Pantoprazole Sodium (Protonix Ec Tab) 40 mg PO DAILY [facility] Last Admin: 03/30/17 09:39 Dose: 40 mg Promethazine HCl/Dextromethorphan (Phenergan Dm Syrup) 10 ml PO Q8 PRN PRN Reason: Cough Last Admin: 03/30/17 06:25 Dose: 10 ml - Labs Labs: 03/30/17 11:17 03/30/17 11:17 - Constitutional Appears: No Acute Distress, Chronically Ill - Head Exam Head Exam: ATRAUMATIC, NORMAL INSPECTION - Eye Exam Eye Exam: EOMI, Normal appearance - Neck Exam Neck Exam: Normal Inspection. absent: Tenderness - Respiratory Exam Respiratory Exam: Clear to Ausculation Bilateral, NORMAL BREATHING PATTERN - Cardiovascular Exam Cardiovascular Exam: REGULAR RHYTHM, +S1 - GI/Abdominal Exam GI & Abdominal Exam: Soft, Tenderness - Extremities Exam Extremities Exam: Tenderness. absent: Pedal Edema - Neurological Exam Neurological Exam: Alert, CN II-XII Intact - Skin Skin Exam: Dry, Warm Assessment and Plan (1) Peritonitis Status: Acute (2) Hypertensive chronic kidney disease with stage 5 chronic kidney disease or end stage renal disease Status: Acute (3) ESRD (end stage renal disease) Status: Acute (4) Acute peritonitis Status: Acute - Assessment and Plan (Free Text) Plan: Continue IP ancef same CAPD ID follow-up
--- NOTE | 2017-03-30 13:18 | CP.PCM.PN ---
Subjective - Date & Time of Evaluation Date of Evaluation: 03/30/17 Time of Evaluation: 08:00 - Subjective Subjective: PD with coag neg staph Objective - Vital Signs/Intake and Output Vital Signs (last 24 hours): Temp Pulse Resp BP Pulse Ox 98.4 F 69 20 132/78 97 03/30/17 08:12 03/30/17 08:12 03/30/17 08:12 03/30/17 08:12 03/30/17 08:12 Intake and Output: 03/30/17 03/30/17 06:59 18:59 Intake Total 488 Balance 488 - Medications Medications: Current Medications Acetaminophen (Tylenol 325mg Tab) 650 mg PO Q6 PRN PRN Reason: Temperature Last Admin: 03/27/17 17:07 Dose: 650 mg Aspirin (Ecotrin) 81 mg PO DAILY [facility] Last Admin: 03/30/17 09:31 Dose: 81 mg Calcium Acetate (Phoslo) 667 mg PO TIDCC [facility] Last Admin: 03/30/17 12:33 Dose: 667 mg Cinacalcet (Sensipar) 30 mg PO DAILY [facility] Last Admin: 03/30/17 11:01 Dose: 30 mg Clonidine HCl (Catapres) 0.2 mg PO BID [facility] Last Admin: 03/30/17 09:32 Dose: 0.2 mg Diclofenac Sodium (Voltaren) 75 mg PO BID PRN PRN Reason: ` Escitalopram Oxalate (Lexapro) 10 mg PO HS [facility] Last Admin: 03/29/17 21:07 Dose: 10 mg Ferrous Sulfate (Feosol) 325 mg PO DAILY [facility] Last Admin: 03/30/17 09:32 Dose: 325 mg Vancomycin/Sodium Chloride (Vancomycin 1 Gm/Ns 200 Ml) 1 gm in 200 mls @ 133 mls/hr IVPB MWF [facility] Stop: 04/01/17 09:01 Last Admin: 03/30/17 09:35 Dose: 133 mls/hr Cefazolin Sodium 250 mg/ (Peritoneal Dialysis Solution) 2,000 mls @ 0 mls/hr IP Q6 [facility] PRN Reason: UD Last Admin: 03/30/17 06:00 Dose: 2,000 mls/hr Cefepime HCl (Maxipime Iv 1 Gm Premix) 1 gm in 50 mls @ 100 mls/hr IVPB Q24H [facility] Last Admin: 03/29/17 17:33 Dose: 100 mls/hr Lisinopril (Zestril) 20 mg PO DAILY [facility] Last Admin: 03/30/17 09:32 Dose: 20 mg Minoxidil (Minoxidil) 5 mg PO BID [facility] Last Admin: 03/30/17 09:32 Dose: 5 mg Morphine Sulfate (Morphine) 2 mg IVP Q4 PRN PRN Reason: Pain, moderate (4-7) Last Admin: 03/30/17 09:33 Dose: 2 mg Ondansetron HCl (Zofran Inj) 4 mg IVP Q6H PRN PRN Reason: Nausea/Vomiting Last Admin: 03/27/17 14:23 Dose: 4 mg Pantoprazole Sodium (Protonix Ec Tab) 40 mg PO DAILY [facility] Last Admin: 03/30/17 09:39 Dose: 40 mg Promethazine HCl/Dextromethorphan (Phenergan Dm Syrup) 10 ml PO Q8 PRN PRN Reason: Cough Last Admin: 03/30/17 06:25 Dose: 10 ml - Labs Labs: 03/30/17 11:17 03/30/17 11:17 - Constitutional Appears: Non-toxic - Head Exam Head Exam: NORMOCEPHALIC - Eye Exam Eye Exam: PERRL - ENT Exam ENT Exam: Mucous Membranes Dry - Neck Exam Neck Exam: absent: Lymphadenopathy - Respiratory Exam Respiratory Exam: Decreased Breath Sounds - Cardiovascular Exam Cardiovascular Exam: REGULAR RHYTHM - GI/Abdominal Exam GI & Abdominal Exam: Distended, Tenderness Assessment and Plan (1) Abdominal pain Status: Acute (2) ESRD (end stage renal disease) Status: Acute (3) Patient on peritoneal dialysis Status: Acute (4) Peritonitis Status: Acute
[2017-03-30] MEDS: Cefepime IV 1 gm in Dextrose 1 GM/50 ML BAG IVPB SCH (17:53)
--- NOTE | 2017-03-30 18:54 | CP.PCM.PN ---
Subjective - Date & Time of Evaluation Date of Evaluation: 03/30/17 Time of Evaluation: 10:20 - Subjective Subjective: clinically same Objective - Vital Signs/Intake and Output Vital Signs (last 24 hours): Temp Pulse Resp BP Pulse Ox 98.3 F 69 20 115/69 95 03/30/17 17:48 03/30/17 17:48 03/30/17 17:48 03/30/17 17:48 03/30/17 17:48 Intake and Output: 03/30/17 03/30/17 06:59 18:59 Intake Total 488 Balance 488 - Medications Medications: Current Medications Acetaminophen (Tylenol 325mg Tab) 650 mg PO Q6 PRN PRN Reason: Temperature Last Admin: 03/27/17 17:07 Dose: 650 mg Aspirin (Ecotrin) 81 mg PO DAILY [facility] Last Admin: 03/30/17 09:31 Dose: 81 mg Calcium Acetate (Phoslo) 667 mg PO TIDCC [facility] Last Admin: 03/30/17 17:18 Dose: 667 mg Cinacalcet (Sensipar) 30 mg PO DAILY [facility] Last Admin: 03/30/17 11:01 Dose: 30 mg Clonidine HCl (Catapres) 0.2 mg PO BID [facility] Last Admin: 03/30/17 09:32 Dose: 0.2 mg Diclofenac Sodium (Voltaren) 75 mg PO BID PRN PRN Reason: ` Escitalopram Oxalate (Lexapro) 10 mg PO HS [facility] Last Admin: 03/29/17 21:07 Dose: 10 mg Ferrous Sulfate (Feosol) 325 mg PO DAILY [facility] Last Admin: 03/30/17 09:32 Dose: 325 mg Vancomycin/Sodium Chloride (Vancomycin 1 Gm/Ns 200 Ml) 1 gm in 200 mls @ 133 mls/hr IVPB MWF [facility] Stop: 04/01/17 09:01 Last Admin: 03/30/17 09:35 Dose: 133 mls/hr Cefazolin Sodium 250 mg/ (Peritoneal Dialysis Solution) 2,000 mls @ 0 mls/hr IP Q6 [facility] PRN Reason: UD Last Admin: 03/30/17 17:18 Dose: 2,000 mls/hr Cefepime HCl (Maxipime Iv 1 Gm Premix) 1 gm in 50 mls @ 100 mls/hr IVPB Q24H [facility] Last Admin: 03/30/17 17:53 Dose: 100 mls/hr Lisinopril (Zestril) 20 mg PO DAILY [facility] Last Admin: 03/30/17 09:32 Dose: 20 mg Minoxidil (Minoxidil) 5 mg PO BID [facility] Last Admin: 03/30/17 09:32 Dose: 5 mg Morphine Sulfate (Morphine) 2 mg IVP Q4 PRN PRN Reason: Pain, moderate (4-7) Last Admin: 03/30/17 17:54 Dose: 2 mg Ondansetron HCl (Zofran Inj) 4 mg IVP Q6H PRN PRN Reason: Nausea/Vomiting Last Admin: 03/27/17 14:23 Dose: 4 mg Pantoprazole Sodium (Protonix Ec Tab) 40 mg PO DAILY [facility] Last Admin: 03/30/17 09:39 Dose: 40 mg Promethazine HCl/Dextromethorphan (Phenergan Dm Syrup) 10 ml PO Q8 PRN PRN Reason: Cough Last Admin: 03/30/17 06:25 Dose: 10 ml - Labs Labs: 03/30/17 11:17 03/30/17 11:17 - Constitutional Appears: Well - Head Exam Head Exam: ATRAUMATIC, NORMAL INSPECTION, NORMOCEPHALIC - Eye Exam Eye Exam: EOMI, Normal appearance, PERRL Pupil Exam: NORMAL ACCOMODATION, PERRL - ENT Exam ENT Exam: Mucous Membranes Moist, Normal Exam - Neck Exam Neck Exam: Full ROM, Normal Inspection. absent: Lymphadenopathy - Respiratory Exam Respiratory Exam: Clear to Ausculation Bilateral, NORMAL BREATHING PATTERN - Cardiovascular Exam Cardiovascular Exam: REGULAR RHYTHM, +S1, +S2. absent: Murmur - GI/Abdominal Exam GI & Abdominal Exam: Soft, Normal Bowel Sounds. absent: Tenderness - Rectal Exam Rectal Exam: Deferred Assessment and Plan (1) Abdominal pain Status: Acute (2) ESRD (end stage renal disease) Status: Acute (3) Hypertensive chronic kidney disease with stage 5 chronic kidney disease or end stage renal disease Status: Acute (4) Hypertensive urgency Status: Acute (5) Patient on peritoneal dialysis Status: Acute (6) Peritonitis Status: Acute (7) AMPARO (acute kidney injury) Status: Acute (8) Acute cholecystitis Status: Acute (9) Acute peritonitis Status: Acute (10) Anemia Status: Acute (11) Benign hypertensive kidney disease with end stage renal disease Status: Acute (12) CHF (congestive heart failure) Status: Acute (13) CKD (chronic kidney disease) stage 5, GFR less than 15 ml/min Status: Acute (14) CKD stage 5 secondary to hypertension Status: Acute (15) Chest pain Status: Acute (16) Dependency on pain medication Status: Acute (17) ESRD (end stage renal disease) Status: Acute (18) ESRD (end stage renal disease) Status: Acute (19) Elevated lipase Status: Acute (20) End stage renal disease Status: Acute (21) HTN (hypertension) Status: Acute (22) Hypertension Status: Acute (23) Hypertensive chronic kidney disease with stage 5 chronic kidney disease or end stage renal disease Status: Acute (24) Hypertensive emergency Status: Acute (25) Hypokalemia Status: Acute (26) Hypokalemia Status: Acute (27) Hypokalemia Status: Acute (28) Hypoxia Status: Acute (29) Intractable abdominal pain Status: Acute (30) NSTEMI (non-ST elevated myocardial infarction) Status: Acute (31) Nausea Status: Acute (32) Nausea & vomiting Status: Acute (33) Nephrolithiasis Status: Acute (34) PUD (peptic ulcer disease) Status: Acute (35) Pneumonia Status: Acute (36) Prophylactic measure Status: Acute (37) Prophylactic measure Status: Acute (38) Proteinuria Status: Acute (39) Renal failure Status: Acute (40) Renal insufficiency Status: Acute (41) Uncontrolled hypertension Status: Acute (42) Vomiting Status: Acute - Assessment and Plan (Free Text) Plan: Patient examined. Blood cultures negative. Peritoneal fluid suggestive of Staphylococcus epidermidis. Mild abdominal pain presents. Continue vancomycin, cefazolin and cefepime. Continue antihypertensive medications. Continue supportive care.
[2017-03-31] MEDS: DIANEAL PD IP SCH ×4 (06:00→17:51)
[2017-03-31] MEDS: CEFAZOLIN IP SCH ×4 (06:00→17:51)
[2017-03-31 06:49] LABS: BASO % 0.7 % (0.0-2.0); EOS # 0.1 K/uL (0.0-0.7); EOS % 1.9 % (0.0-4.0); HEMATOCRIT 34.1 % (34.0-47.0); LYMPH # 0.8 K/uL (1.0-4.3); LYMPH % 15.2 % (20.0-40.0); MEAN CELL VOLUME 88.4 fL (81.0-99.0); MEAN CORPUSCULAR HEMOGLOBIN 29.9 pg (27.0-31.0); MEAN CORPUSCULAR HGB CONC 33.8 g/dL (33.0-37.0); MEAN PLATELET VOLUME 7.8 fL (7.2-11.7); MONO # 0.7 K/uL (0.0-0.8); MONO % 13.1 % (0.0-10.0); NRBC % 0.1 % (0.0-2.0); RED CELL DISTRIBUTION WIDTH 13.9 % (11.5-14.5); WHITE BLOOD COUNT 5.5 K/uL (4.8-10.8)
[2017-03-31 07:13] LABS: ALB/GLOB RATIO 1.5 (1.0-2.1); BILIRUBIN,TOTAL 0.5 mg/dL (0.2-1.3); CALCIUM 8.1 mg/dl (8.6-10.4); MAGNESIUM 1.7 mg/dL (1.6-2.3); PHOSPHOROUS 3.4 mg/dL (2.5-4.5); POTASSIUM 3.4 mmol/L (3.6-5.2); TOTAL PROTEIN 5.3 g/dL (6.3-8.3)
[2017-03-31] MEDS ORDERED: Potassium Chloride 20 mEq ER Tab PO ONE (07:21)
--- NOTE | 2017-03-31 09:46 | CP.PCM.PN ---
<Rufino Reeder - Last Filed: 03/31/17 13:04> Subjective - Date & Time of Evaluation Date of Evaluation: 03/31/17 Time of Evaluation: 09:46 - Subjective Subjective: PGY2 Medicine Note for Dr. Denis Orr; all management as per Dr. Denis Orr Patient seen and examined at bedside this AM; has no acute complaints and no events overnight; denies any fevers/chills, LAUREN, CP, abdominal pain, N/V/D, dysuria/freq/urg or lower extremity pain/swelling. Patient was explained in detail that she needs to clean her abdomen in a sterile fashion when she does peritoneal dialysis and keep the area extremely clean in order to prevent further SBP. Patient verbalized understanding. Objective - Vital Signs/Intake and Output Vital Signs (last 24 hours): Temp Pulse Resp BP Pulse Ox 98.4 F 71 20 126/83 94 L 03/31/17 08:34 03/31/17 08:34 03/31/17 08:34 03/31/17 08:34 03/31/17 08:34 - Medications Medications: Current Medications Acetaminophen (Tylenol 325mg Tab) 650 mg PO Q6 PRN PRN Reason: Temperature Last Admin: 03/27/17 17:07 Dose: 650 mg Aspirin (Ecotrin) 81 mg PO DAILY [facility] Last Admin: 03/30/17 09:31 Dose: 81 mg Calcium Acetate (Phoslo) 667 mg PO TIDCC [facility] Last Admin: 03/31/17 08:14 Dose: 667 mg Cinacalcet (Sensipar) 30 mg PO DAILY [facility] Last Admin: 03/30/17 11:01 Dose: 30 mg Clonidine HCl (Catapres) 0.2 mg PO BID [facility] Last Admin: 03/30/17 19:51 Dose: Not Given Diclofenac Sodium (Voltaren) 75 mg PO BID PRN PRN Reason: ` Escitalopram Oxalate (Lexapro) 10 mg PO HS [facility] Last Admin: 03/30/17 22:45 Dose: 10 mg Ferrous Sulfate (Feosol) 325 mg PO DAILY [facility] Last Admin: 03/30/17 09:32 Dose: 325 mg Vancomycin/Sodium Chloride (Vancomycin 1 Gm/Ns 200 Ml) 1 gm in 200 mls @ 133 mls/hr IVPB MWF [facility] Stop: 04/01/17 09:01 Last Admin: 03/30/17 09:35 Dose: 133 mls/hr Cefazolin Sodium 250 mg/ (Peritoneal Dialysis Solution) 2,000 mls @ 0 mls/hr IP Q6 [facility] PRN Reason: UD Last Admin: 03/31/17 06:00 Dose: 2,000 mls/hr Cefepime HCl (Maxipime Iv 1 Gm Premix) 1 gm in 50 mls @ 100 mls/hr IVPB Q24H [facility] Last Admin: 03/30/17 17:53 Dose: 100 mls/hr Lisinopril (Zestril) 20 mg PO DAILY [facility] Last Admin: 03/30/17 09:32 Dose: 20 mg Morphine Sulfate (Morphine) 2 mg IVP Q4 PRN PRN Reason: Pain, moderate (4-7) Last Admin: 03/31/17 08:05 Dose: 2 mg Ondansetron HCl (Zofran Inj) 4 mg IVP Q6H PRN PRN Reason: Nausea/Vomiting Last Admin: 03/27/17 14:23 Dose: 4 mg Pantoprazole Sodium (Protonix Ec Tab) 40 mg PO DAILY [facility] Last Admin: 03/30/17 09:39 Dose: 40 mg Promethazine HCl/Dextromethorphan (Phenergan Dm Syrup) 10 ml PO Q8 PRN PRN Reason: Cough Last Admin: 03/30/17 23:14 Dose: 10 ml - Labs Labs: 03/31/17 06:36 03/31/17 06:36 - Constitutional Appears: Non-toxic, No Acute Distress - Head Exam Head Exam: ATRAUMATIC - Eye Exam Eye Exam: EOMI, Normal appearance Pupil Exam: PERRL - ENT Exam ENT Exam: Mucous Membranes Moist - Neck Exam Neck Exam: Full ROM. absent: Lymphadenopathy - Respiratory Exam Respiratory Exam: Clear to Ausculation Bilateral, NORMAL BREATHING PATTERN. absent: Rales, Rhonchi, Wheezes - Cardiovascular Exam Cardiovascular Exam: REGULAR RHYTHM, +S1, +S2 - GI/Abdominal Exam GI & Abdominal Exam: Soft (mildly distended, mild fluid wave, no tenderness to palpation) - Extremities Exam Extremities Exam: Full ROM, Normal Inspection - Back Exam Back Exam: NORMAL INSPECTION. absent: CVA tenderness (L), CVA tenderness (R) - Neurological Exam Neurological Exam: Alert, Awake, CN II-XII Intact, Normal Gait, Oriented x3 - Psychiatric Exam Psychiatric exam: Normal Affect - Skin Skin Exam: Warm Assessment and Plan - Assessment and Plan (Free Text) Assessment: 36yo F w/ ESRD on peritoneal dialysis admitted for SBP Abdominal pain 2/2 to SBP PD fluid with staph epi. Continue IV Abx. Nephro consult. recs appreciated. Dr. Jordan -patient will need 2 more days IV abx and will need to take abx as outpatient for prophylaxis for SBP -renal diet -blood cultures negative x72hrs -morphine2 mg q 4 hrs IV prn severe pain -ID consult. Dr. Sosa. recs appreciated. -Afebrile since 03/27, Last temp 101.5F -cefazolin IV (start date 03/26) -ceftriaxone IV 1 g daily (start date 03/26) -vancomycin 1 g MWF (start date 03/27) -can discharge patient on the following abx by mouth for proph after completes tx Norfloxacin 400mg PO daily or Cipro 750mg PO Weekly or Bactrim DS M,T,W,Th,F -As per Dr. Orr; she will need 28 days of peritoneal inserted vancomycin for her infection hx of anxiety -continue lexapro daily hx of peritoneal dialysis nephro consult as above. continue cinacalcet hx of HTN -continue lisinopril 20 po daily -continue minoxidil 5 PO BID -continue clonidine .2 mg PO BID -continue norvasc PO daily -continue asa 81 mg po daily Anemia -normocytic -continue ferrous sulfate 325 PO daily GI/DVT ppx -protonix daily -SCDs Case discussed with attending. All medical management as per Dr. Denis Orr <Vanessa Orr - Last Filed: 04/06/17 17:13> Objective - Vital Signs/Intake and Output Vital Signs (last 24 hours): Temp Pulse Resp BP Pulse Ox 98.4 F 70 20 128/81 97 04/06/17 07:40 04/06/17 07:40 04/06/17 07:40 04/06/17 07:40 04/06/17 07:40 Intake and Output: 04/06/17 04/06/17 06:59 18:59 Intake Total 240 Balance 240 - Labs Labs: 04/06/17 11:49 04/06/17 11:49 Assessment and Plan (1) Abdominal pain Status: Acute (2) ESRD (end stage renal disease) Status: Acute (3) Hypertensive chronic kidney disease with stage 5 chronic kidney disease or end stage renal disease Status: Acute (4) Hypertensive urgency Status: Acute (5) Patient on peritoneal dialysis Status: Acute (6) Peritonitis Status: Acute (7) AMPARO (acute kidney injury) Status: Acute (8) Acute cholecystitis Status: Acute (9) Acute peritonitis Status: Acute (10) Anemia Status: Acute (11) Benign hypertensive kidney disease with end stage renal disease Status: Acute (12) CHF (congestive heart failure) Status: Acute (13) CKD (chronic kidney disease) stage 5, GFR less than 15 ml/min Status: Acute (14) CKD stage 5 secondary to hypertension Status: Acute (15) Chest pain Status: Acute (16) Dependency on pain medication Status: Acute (17) ESRD (end stage renal disease) Status: Acute (18) ESRD (end stage renal disease) Status: Acute (19) Elevated lipase Status: Acute (20) End stage renal disease Status: Acute (21) HTN (hypertension) Status: Acute (22) Hypertension Status: Acute (23) Hypertensive chronic kidney disease with stage 5 chronic kidney disease or end stage renal disease Status: Acute (24) Hypertensive emergency Status: Acute (25) Hypokalemia Status: Acute (26) Hypokalemia Status: Acute (27) Hypokalemia Status: Acute (28) Hypoxia Status: Acute (29) Intractable abdominal pain Status: Acute (30) NSTEMI (non-ST elevated myocardial infarction) Status: Acute (31) Nausea Status: Acute (32) Nausea & vomiting Status: Acute (33) Nephrolithiasis Status: Acute (34) PUD (peptic ulcer disease) Status: Acute (35) Pneumonia Status: Acute (36) Prophylactic measure Status: Acute (37) Prophylactic measure Status: Acute (38) Proteinuria Status: Acute (39) Renal failure Status: Acute (40) Renal insufficiency Status: Acute (41) Uncontrolled hypertension Status: Acute (42) Vomiting Status: Acute Attending/Attestation - Attestation I have personally seen and examined this patient.: Yes I have fully participated in the care of the patient.: Yes I have reviewed all pertinent clinical information, including history, physical exam and plan: Yes Notes (Text): Patient examined. Patient better. No abdominal pain. Continue vancomycin, linezolid and cefepime. Continue hypertensive medications. Continue supportive care.
[2017-03-31] MEDS: Pantoprazole 40 mg EC Tab PO SCH (10:22)
--- NOTE | 2017-03-31 12:00 | CP.PCM.PN ---
Subjective - Date & Time of Evaluation Date of Evaluation: 03/31/17 Time of Evaluation: 11:57 - Subjective Subjective: pt seen and examined still w/ diffuse abdominal pain on IP antibiotic. boris mehta neg in pd fluid hasnt had a bm today Objective - Vital Signs/Intake and Output Vital Signs (last 24 hours): Temp Pulse Resp BP Pulse Ox 98.4 F 71 20 126/83 94 L 03/31/17 08:34 03/31/17 08:34 03/31/17 08:34 03/31/17 08:34 03/31/17 08:34 - Medications Medications: Current Medications Acetaminophen (Tylenol 325mg Tab) 650 mg PO Q6 PRN PRN Reason: Temperature Last Admin: 03/27/17 17:07 Dose: 650 mg Aspirin (Ecotrin) 81 mg PO DAILY [facility] Last Admin: 03/31/17 10:22 Dose: 81 mg Calcium Acetate (Phoslo) 667 mg PO TIDCC [facility] Last Admin: 03/31/17 08:14 Dose: 667 mg Cinacalcet (Sensipar) 30 mg PO DAILY [facility] Last Admin: 03/31/17 10:22 Dose: 30 mg Clonidine HCl (Catapres) 0.2 mg PO BID [facility] Last Admin: 03/31/17 10:22 Dose: 0.2 mg Diclofenac Sodium (Voltaren) 75 mg PO BID PRN PRN Reason: ` Escitalopram Oxalate (Lexapro) 10 mg PO HS [facility] Last Admin: 03/30/17 22:45 Dose: 10 mg Ferrous Sulfate (Feosol) 325 mg PO DAILY [facility] Last Admin: 03/31/17 10:22 Dose: 325 mg Vancomycin/Sodium Chloride (Vancomycin 1 Gm/Ns 200 Ml) 1 gm in 200 mls @ 133 mls/hr IVPB MWF [facility] Stop: 04/01/17 09:01 Last Admin: 03/30/17 09:35 Dose: 133 mls/hr Cefazolin Sodium 250 mg/ (Peritoneal Dialysis Solution) 2,000 mls @ 0 mls/hr IP Q6 [facility] PRN Reason: UD Last Admin: 03/31/17 06:00 Dose: 2,000 mls/hr Cefepime HCl (Maxipime Iv 1 Gm Premix) 1 gm in 50 mls @ 100 mls/hr IVPB Q24H [facility] Last Admin: 03/30/17 17:53 Dose: 100 mls/hr Lactulose (Enulose) 20 gm PO DAILY [facility] Lisinopril (Zestril) 20 mg PO DAILY [facility] Last Admin: 03/31/17 10:22 Dose: 20 mg Morphine Sulfate (Morphine) 2 mg IVP Q4 PRN PRN Reason: Pain, moderate (4-7) Last Admin: 03/31/17 08:05 Dose: 2 mg Ondansetron HCl (Zofran Inj) 4 mg IVP Q6H PRN PRN Reason: Nausea/Vomiting Last Admin: 03/27/17 14:23 Dose: 4 mg Pantoprazole Sodium (Protonix Ec Tab) 40 mg PO DAILY [facility] Last Admin: 03/31/17 10:22 Dose: 40 mg Promethazine HCl/Dextromethorphan (Phenergan Dm Syrup) 10 ml PO Q8 PRN PRN Reason: Cough Last Admin: 03/30/17 23:14 Dose: 10 ml - Labs Labs: 03/31/17 06:36 03/31/17 06:36 - Constitutional Appears: Non-toxic, No Acute Distress - Head Exam Head Exam: NORMAL INSPECTION - Eye Exam Eye Exam: Normal appearance - ENT Exam ENT Exam: Mucous Membranes Moist, Normal Exam - Neck Exam Neck Exam: Normal Inspection - Respiratory Exam Respiratory Exam: Clear to Ausculation Bilateral, NORMAL BREATHING PATTERN - Cardiovascular Exam Cardiovascular Exam: REGULAR RHYTHM, RRR - GI/Abdominal Exam GI & Abdominal Exam: Distended (ttp diffusely, no rebound), Soft - Extremities Exam Extremities Exam: Normal Inspection - Back Exam Back Exam: NORMAL INSPECTION - Neurological Exam Neurological Exam: Alert, Awake, Oriented x3 - Psychiatric Exam Psychiatric exam: Normal Affect, Normal Mood - Skin Skin Exam: Dry, Warm Assessment and Plan (1) Abdominal pain Status: Acute (2) ESRD (end stage renal disease) Status: Acute (3) Hypertensive urgency Status: Acute (4) Patient on peritoneal dialysis Status: Acute (5) Peritonitis Status: Acute - Assessment and Plan (Free Text) Assessment: maintain IP antibiotic per ID add lactulose ct scan abdomen bp controlled
--- NOTE | 2017-03-31 16:05 | CT ---
PROCEDURE: CT Abdomen and Pelvis without intravenous contrast HISTORY: abdominal pain, PD COMPARISON: 12/01/2016 TECHNIQUE: Without contrast.. Contrast Dose: 0 Radiation dose: Total exam DLP = 419.21 mGy-cm. This CT exam was performed using one or more of the following dose reduction techniques: Automated exposure control, adjustment of the mA and/or kV according to patient size, and/or use of iterative reconstruction technique. FINDINGS: LOWER THORAX: Minimal linear scar/ atelectasis in both lower lobes. Small hiatal hernia. Trace right pleural effusion. LIVER: Normal size, contour and attenuation. No mass. No biliary ductal dilatation. There is a small amount of gas seen in the amirah hepatis, possibly related to the generalized pneumoperitoneum. See below. GALLBLADDER AND BILE DUCTS: Status post cholecystectomy. PANCREAS: Unremarkable. No gross lesion or ductal dilatation. SPLEEN: Mild splenomegaly. The spleen measures 13.4 cm in greatest dimension. No focal mass. ADRENALS: Unremarkable. No mass. KIDNEYS AND URETERS: Several very small calcifications in the upper pole left kidney, nonobstructing. These are unchanged from prior CT. No mass. No hydronephrosis. VASCULATURE: Unremarkable. No aortic aneurysm. BOWEL: There is circumferential mural thickening of several loops of jejunum in the left upper quadrant of the abdomen. This is consistent with a nonspecific enteritis. No other abnormal bowel loops are identified. APPENDIX: Unremarkable PERITONEUM: There is fluid in the peritoneal cavity consistent with known peritoneal dialysis. There is pneumoperitoneum. This is an atypical finding with peritoneal dialysis but may nevertheless be the result of peritoneal dialysis. The possibility of a perforated hollow viscus cannot be excluded, however. LYMPH NODES: Unremarkable. No enlarged lymph nodes. BLADDER: Nondistended REPRODUCTIVE: Unremarkable uterus and adnexae BONES: No acute fracture. OTHER FINDINGS: None. IMPRESSION: Peritoneal fluid consistent with known peritoneal dialysis. There is pneumoperitoneum. Differential diagnosis for pneumoperitoneum in this patient includes the result of peritoneal dialysis or perforated hollow viscus. There is a mild nonspecific enteritis involving loops of small bowel in the left upper quadrant of the abdomen. The patient is status post cholecystectomy. Small hiatal hernia. The findings in this examination were discussed, by telephone, with the patient's nurse, Jeanie, at 24 p.m. on 03/31/2017.
--- NOTE | 2017-03-31 17:14 | CP.PCM.CON ---
History of Present Illness - History of Present Illness History of Present Illness: General Surgery Consult for Dr. Barnes Reason for consult: Abdominal pain and findings of Free air on CT scan 36 F with PMH of htn and peritoneal dialysis for CKD was admitted for uncontrolled htn. Surgery was consulted for complaints of abdominal pain and free air on CT scan. She has had the abdominal pain for 3 weeks. She has never had this pain before. She states gradual onset and states it has gotten progressively worse. She rates pain as moderate. She describes pain as intermittent and piercing that is diffusely located in the abdomen with radiation to chest and left shoulder. Patient recently was admitted for similar symptoms and received antibiotics through PD catheter which did not help. Symptoms persisted until this admission. Patient on is on 9 hours of PD per day (uses machine). While in hospital, she is getting PD every 6 hours manually. 12 point ROS is negative. PMD: Dr. Denis Orr PMH: HTN, CKD requiring peritoneal dialysis Meds: As per EMR Allergy: NKDA PSH: cholecystectomy, peritoneal dialysis catheter (both 10/2016) FH: DM, Arrythmia, Bone CA Social: current smoker - 5 cigs per day for 20 years; lives with sister; denies EtOH/illicit drug use; unemployed Review of Systems - Review of Systems All systems: reviewed and no additional remarkable complaints except (abdominal pain) Past Patient History - Past Medical History & Family History Past Medical History?: Yes - Past Social History Smoking Status: Light Smoker < 10 Cigarettes Daily - CARDIAC Hx Congestive Heart Failure: Yes Hx Hypertension: Yes - PULMONARY Hx Respiratory Disorders: No - NEUROLOGICAL Hx Neurological Disorder: No - HEENT Hx HEENT Problems: No Other/Comment: eyeglasses for reading - RENAL Type of Dialysis Access: Dianeal 2.5 - ENDOCRINE/METABOLIC Hx Endocrine Disorders: No - HEMATOLOGICAL/ONCOLOGICAL Hx Anemia: Yes - INTEGUMENTARY Hx Dermatological Problems: No - MUSCULOSKELETAL/RHEUMATOLOGICAL Hx Falls: No - GASTROINTESTINAL Hx Gastrointestinal Disorders: No - GENITOURINARY/GYNECOLOGICAL Hx Genitourinary Disorders: No - PSYCHIATRIC Hx Anxiety: Yes Hx Depression: Yes Hx Substance Use: No - SURGICAL HISTORY Hx Cholecystectomy: Yes - ANESTHESIA Hx Anesthesia: Yes Hx Anesthesia Reactions: No Hx Malignant Hyperthermia: No Meds Allergies/Adverse Reactions: Allergies Allergy/AdvReac Type Severity Reaction Status Date / Time No Known Allergies Allergy Verified 02/27/17 18:15 - Medications Medications: Current Medications Acetaminophen (Tylenol 325mg Tab) 650 mg PO Q6 PRN PRN Reason: Temperature Last Admin: 03/27/17 17:07 Dose: 650 mg Aspirin (Ecotrin) 81 mg PO DAILY [facility] Last Admin: 03/31/17 10:22 Dose: 81 mg Calcium Acetate (Phoslo) 667 mg PO TIDCC [facility] Last Admin: 03/31/17 12:51 Dose: 667 mg Cinacalcet (Sensipar) 30 mg PO DAILY [facility] Last Admin: 03/31/17 10:22 Dose: 30 mg Clonidine HCl (Catapres) 0.2 mg PO BID [facility] Last Admin: 03/31/17 10:22 Dose: 0.2 mg Diclofenac Sodium (Voltaren) 75 mg PO BID PRN PRN Reason: ` Escitalopram Oxalate (Lexapro) 10 mg PO HS [facility] Last Admin: 03/30/17 22:45 Dose: 10 mg Ferrous Sulfate (Feosol) 325 mg PO DAILY [facility] Last Admin: 03/31/17 10:22 Dose: 325 mg Vancomycin/Sodium Chloride (Vancomycin 1 Gm/Ns 200 Ml) 1 gm in 200 mls @ 133 mls/hr IVPB MWF [facility] Stop: 04/01/17 09:01 Last Admin: 03/30/17 09:35 Dose: 133 mls/hr Cefepime HCl (Maxipime Iv 1 Gm Premix) 1 gm in 50 mls @ 100 mls/hr IVPB Q24H [facility] Last Admin: 03/30/17 17:53 Dose: 100 mls/hr Lactulose (Enulose) 20 gm PO DAILY [facility] Last Admin: 03/31/17 12:52 Dose: 20 gm Lisinopril (Zestril) 20 mg PO DAILY [facility] Last Admin: 03/31/17 10:22 Dose: 20 mg Morphine Sulfate (Morphine) 2 mg IVP Q4 PRN PRN Reason: Pain, moderate (4-7) Last Admin: 03/31/17 12:20 Dose: 2 mg Ondansetron HCl (Zofran Inj) 4 mg IVP Q6H PRN PRN Reason: Nausea/Vomiting Last Admin: 03/27/17 14:23 Dose: 4 mg Pantoprazole Sodium (Protonix Ec Tab) 40 mg PO DAILY [facility] Last Admin: 03/31/17 10:22 Dose: 40 mg Promethazine HCl/Dextromethorphan (Phenergan Dm Syrup) 10 ml PO Q8 PRN PRN Reason: Cough Last Admin: 03/30/17 23:14 Dose: 10 ml Physical Exam - Constitutional Appears: No Acute Distress - Head Exam Head Exam: ATRAUMATIC, NORMOCEPHALIC - Eye Exam Eye Exam: Normal appearance - ENT Exam ENT Exam: Mucous Membranes Dry - Respiratory Exam Respiratory Exam: NORMAL BREATHING PATTERN - Cardiovascular Exam Cardiovascular Exam: REGULAR RHYTHM - GI/Abdominal Exam GI & Abdominal Exam: Normal Bowel Sounds, Soft, Tenderness (left side of abdomen ). absent: Distended, Firm, Guarding, Hernia, Rebound, Rigid Additional comments: peritoneal dialysis catheter in place and functioning properly - Extremities Exam Extremities exam: Negative for: calf tenderness - Back Exam Back exam: absent: CVA tenderness (L), CVA tenderness (R) - Neurological Exam Neurological exam: Alert, CN II-XII Intact, Oriented x3 - Psychiatric Exam Psychiatric exam: Normal Affect, Normal Mood - Skin Skin Exam: Dry, Intact, Normal Color, Warm Results - Vital Signs Recent Vital Signs: Last Vital Signs Temp 99.0 F 03/31/17 15:17 Pulse 72 03/31/17 15:17 Resp 18 03/31/17 15:17 BP 97/67 L 03/31/17 15:17 Pulse Ox 96 03/31/17 15:17 - Labs Result Diagrams: 03/31/17 06:36 03/31/17 06:36 Labs: Laboratory Results - last 24 hr 03/31/17 03/31/17 06:36 06:36 WBC 5.5 RBC 3.86 Hgb 11.5 Hct 34.1 MCV 88.4 MCH 29.9 MCHC 33.8 RDW 13.9 Plt Count 219 MPV 7.8 Neut % (Auto) 69.1 Lymph % (Auto) 15.2 L [place] % (Auto) 13.1 H Eos % (Auto) 1.9 Baso % (Auto) 0.7 Neut # 3.8 Lymph # 0.8 L [place] # 0.7 Eos # 0.1 Baso # 0.0 Sodium 133 Potassium 3.4 L Chloride 96 L Carbon Dioxide 26 Anion Gap 14 BUN 24 H Creatinine 4.5 H Est GFR ( Amer) 13 Est GFR (Non-Af Amer) 11 Random Glucose 107 H Calcium 8.1 L Phosphorus 3.4 Magnesium 1.7 Total Bilirubin 0.5 AST 12 L ALT 23 Alkaline Phosphatase 70 Total Protein 5.3 L Albumin 3.2 L Globulin 2.2 Albumin/Globulin Ratio 1.5 Assessment & Plan - Assessment and Plan (Free Text) Plan: 36 F with abdominal pain and findings of free air on CT scan -Free air likely from peritoneal catheter -Currently no peritoneal signs -Serial abdominal exams -Will continue to follow -Discussed with Dr. Molly Malik PGY1
--- NOTE | 2017-03-31 17:45 | CP.PCM.PN ---
Subjective - Date & Time of Evaluation Date of Evaluation: 03/31/17 Time of Evaluation: 09:20 - Subjective Subjective: clinically same Objective - Vital Signs/Intake and Output Vital Signs (last 24 hours): Temp Pulse Resp BP Pulse Ox 98.1 F 90 18 118/55 L 96 03/31/17 17:30 03/31/17 17:30 03/31/17 17:30 03/31/17 17:30 03/31/17 15:17 - Medications Medications: Current Medications Acetaminophen (Tylenol 325mg Tab) 650 mg PO Q6 PRN PRN Reason: Temperature Last Admin: 03/27/17 17:07 Dose: 650 mg Aspirin (Ecotrin) 81 mg PO DAILY [facility] Last Admin: 03/31/17 10:22 Dose: 81 mg Calcium Acetate (Phoslo) 667 mg PO TIDCC [facility] Last Admin: 03/31/17 12:51 Dose: 667 mg Cinacalcet (Sensipar) 30 mg PO DAILY [facility] Last Admin: 03/31/17 10:22 Dose: 30 mg Clonidine HCl (Catapres) 0.2 mg PO BID [facility] Last Admin: 03/31/17 10:22 Dose: 0.2 mg Diclofenac Sodium (Voltaren) 75 mg PO BID PRN PRN Reason: ` Escitalopram Oxalate (Lexapro) 10 mg PO HS [facility] Last Admin: 03/30/17 22:45 Dose: 10 mg Ferrous Sulfate (Feosol) 325 mg PO DAILY [facility] Last Admin: 03/31/17 10:22 Dose: 325 mg Vancomycin/Sodium Chloride (Vancomycin 1 Gm/Ns 200 Ml) 1 gm in 200 mls @ 133 mls/hr IVPB MWF [facility] Stop: 04/01/17 09:01 Last Admin: 03/30/17 09:35 Dose: 133 mls/hr Cefepime HCl (Maxipime Iv 1 Gm Premix) 1 gm in 50 mls @ 100 mls/hr IVPB Q24H [facility] Last Admin: 03/30/17 17:53 Dose: 100 mls/hr Cefazolin Sodium 250 mg/ (Peritoneal Dialysis Solution) 2,000 mls @ 0 mls/hr IP Q6 [facility] PRN Reason: UD Lactulose (Enulose) 20 gm PO DAILY [facility] Last Admin: 03/31/17 12:52 Dose: 20 gm Lisinopril (Zestril) 20 mg PO DAILY [facility] Last Admin: 03/31/17 10:22 Dose: 20 mg Morphine Sulfate (Morphine) 2 mg IVP Q4 PRN PRN Reason: Pain, moderate (4-7) Last Admin: 03/31/17 12:20 Dose: 2 mg Ondansetron HCl (Zofran Inj) 4 mg IVP Q6H PRN PRN Reason: Nausea/Vomiting Last Admin: 03/27/17 14:23 Dose: 4 mg Pantoprazole Sodium (Protonix Ec Tab) 40 mg PO DAILY [facility] Last Admin: 03/31/17 10:22 Dose: 40 mg Promethazine HCl/Dextromethorphan (Phenergan Dm Syrup) 10 ml PO Q8 PRN PRN Reason: Cough Last Admin: 03/30/17 23:14 Dose: 10 ml - Labs Labs: 03/31/17 06:36 03/31/17 06:36 - Constitutional Appears: Well - Head Exam Head Exam: ATRAUMATIC, NORMAL INSPECTION, NORMOCEPHALIC - Eye Exam Eye Exam: EOMI, Normal appearance, PERRL Pupil Exam: NORMAL ACCOMODATION, PERRL - ENT Exam ENT Exam: Mucous Membranes Moist, Normal Exam - Neck Exam Neck Exam: Full ROM, Normal Inspection. absent: Lymphadenopathy - Respiratory Exam Respiratory Exam: Clear to Ausculation Bilateral, NORMAL BREATHING PATTERN - Cardiovascular Exam Cardiovascular Exam: REGULAR RHYTHM, +S1, +S2. absent: Murmur - GI/Abdominal Exam GI & Abdominal Exam: Soft, Normal Bowel Sounds. absent: Tenderness - Rectal Exam Rectal Exam: Deferred - Extremities Exam Extremities Exam: Full ROM, Normal Capillary Refill, Normal Inspection. absent : Joint Swelling, Pedal Edema Assessment and Plan (1) Abdominal pain Status: Acute (2) ESRD (end stage renal disease) Status: Acute (3) Hypertensive chronic kidney disease with stage 5 chronic kidney disease or end stage renal disease Status: Acute (4) Hypertensive urgency Status: Acute (5) Patient on peritoneal dialysis Status: Acute (6) Peritonitis Status: Acute (7) AMPARO (acute kidney injury) Status: Acute (8) Acute cholecystitis Status: Acute (9) Acute peritonitis Status: Acute (10) Anemia Status: Acute (11) Benign hypertensive kidney disease with end stage renal disease Status: Acute (12) CHF (congestive heart failure) Status: Acute (13) CKD (chronic kidney disease) stage 5, GFR less than 15 ml/min Status: Acute (14) CKD stage 5 secondary to hypertension Status: Acute (15) Chest pain Status: Acute (16) Dependency on pain medication Status: Acute (17) ESRD (end stage renal disease) Status: Acute (18) ESRD (end stage renal disease) Status: Acute (19) Elevated lipase Status: Acute (20) End stage renal disease Status: Acute (21) HTN (hypertension) Status: Acute (22) Hypertension Status: Acute (23) Hypertensive chronic kidney disease with stage 5 chronic kidney disease or end stage renal disease Status: Acute (24) Hypertensive emergency Status: Acute (25) Hypokalemia Status: Acute (26) Hypokalemia Status: Acute (27) Hypokalemia Status: Acute (28) Hypoxia Status: Acute (29) Intractable abdominal pain Status: Acute (30) NSTEMI (non-ST elevated myocardial infarction) Status: Acute (31) Nausea Status: Acute (32) Nausea & vomiting Status: Acute (33) Nephrolithiasis Status: Acute (34) PUD (peptic ulcer disease) Status: Acute (35) Pneumonia Status: Acute (36) Prophylactic measure Status: Acute (37) Prophylactic measure Status: Acute (38) Proteinuria Status: Acute (39) Renal failure Status: Acute (40) Renal insufficiency Status: Acute (41) Uncontrolled hypertension Status: Acute (42) Vomiting Status: Acute - Assessment and Plan (Free Text) Plan: Patient examined. Diffuse abdominal pain present. Continue vancomycin, cefepime and cefazolin. Continue antihypertensive medications. Continue aspirin. Continue supportive care.
[2017-03-31] MEDS ORDERED: CEFAZOLIN IV SCH (18:00)
[2017-03-31] MEDS ORDERED: DIANEAL PD IV SCH (18:00)
[2017-03-31] MEDS: Cefepime IV 1 gm in Dextrose 1 GM/50 ML BAG IVPB SCH (18:31)
[2017-03-31] MEDS: Promethazine DM 12.5 mg-30 mg/10 ml Syrup PO PRN (21:52)
[2017-03-31] MEDS ORDERED: Potassium Chloride 20 mEq ER Tab PO STA (22:40)
[2017-04-01] MEDS: DIANEAL PD IP SCH ×5 (00:06→23:57)
[2017-04-01] MEDS: CEFAZOLIN IP SCH ×5 (00:06→23:57)
[2017-04-01] MEDS: Diclofenac Sodium Delayed Release 75 mg EC Tab PO PRN (04:59)
[2017-04-01] MEDS ORDERED: Tramadol 25 mg PO STA (05:07)
[2017-04-01] MEDS: Promethazine DM 12.5 mg-30 mg/10 ml Syrup PO PRN (06:42)
[2017-04-01] MEDS: Vancomycin 1 gm/NS 200 ml 1 GM/200 ML BAG IVPB SCH (08:36)
[2017-04-01] MEDS: Pantoprazole 40 mg EC Tab PO SCH (09:40)
--- NOTE | 2017-04-01 10:06 | CP.PCM.PN ---
<William Sumner - Last Filed: 04/01/17 11:31> Subjective - Date & Time of Evaluation Date of Evaluation: 04/01/17 Time of Evaluation: 07:35 - Subjective Subjective: PGY2 Resident - Medicine Progress Note Patient seen and examined at bedside. No acute distress. No overnight events. Reports mild abdominal pain, well controlled today. Denies fever, chills, nausea /vomiting, diarrhea/constipation, dysuria, urinary frequency, change in urinary stream, or any additional acute complaints. Objective - Vital Signs/Intake and Output Vital Signs (last 24 hours): Temp Pulse Resp BP Pulse Ox 98.4 F 64 20 101/64 94 L 04/01/17 07:48 04/01/17 07:48 04/01/17 07:48 04/01/17 07:48 04/01/17 07:48 - Medications Medications: Current Medications Acetaminophen (Tylenol 325mg Tab) 650 mg PO Q6 PRN PRN Reason: Temperature Last Admin: 03/27/17 17:07 Dose: 650 mg Aspirin (Ecotrin) 81 mg PO DAILY [facility] Last Admin: 04/01/17 09:40 Dose: 81 mg Calcium Acetate (Phoslo) 667 mg PO TIDCC [facility] Last Admin: 04/01/17 08:23 Dose: 667 mg Cinacalcet (Sensipar) 30 mg PO DAILY [facility] Last Admin: 04/01/17 09:40 Dose: 30 mg Clonidine HCl (Catapres) 0.2 mg PO BID [facility] Last Admin: 04/01/17 09:44 Dose: Not Given Diclofenac Sodium (Voltaren) 75 mg PO BID PRN PRN Reason: ` Escitalopram Oxalate (Lexapro) 10 mg PO HS [facility] Last Admin: 03/31/17 21:50 Dose: 10 mg Ferrous Sulfate (Feosol) 325 mg PO DAILY [facility] Last Admin: 04/01/17 09:40 Dose: 325 mg Cefepime HCl (Maxipime Iv 1 Gm Premix) 1 gm in 50 mls @ 100 mls/hr IVPB Q24H [facility] Last Admin: 03/31/17 18:31 Dose: 100 mls/hr Cefazolin Sodium 250 mg/ (Peritoneal Dialysis Solution) 2,000 mls @ 0 mls/hr IP Q6 [facility] PRN Reason: UD Last Admin: 04/01/17 06:04 Dose: 2,000 mls/hr Lactulose (Enulose) 20 gm PO DAILY [facility] Last Admin: 04/01/17 09:40 Dose: 20 gm Lisinopril (Zestril) 20 mg PO DAILY [facility] Last Admin: 04/01/17 09:44 Dose: Not Given Morphine Sulfate (Morphine) 2 mg IVP Q4 PRN PRN Reason: Pain, moderate (4-7) Last Admin: 04/01/17 06:37 Dose: 2 mg Ondansetron HCl (Zofran Inj) 4 mg IVP Q6H PRN PRN Reason: Nausea/Vomiting Last Admin: 03/27/17 14:23 Dose: 4 mg Pantoprazole Sodium (Protonix Ec Tab) 40 mg PO DAILY [facility] Last Admin: 04/01/17 09:40 Dose: 40 mg Promethazine HCl/Dextromethorphan (Phenergan Dm Syrup) 10 ml PO Q8 PRN PRN Reason: Cough Last Admin: 04/01/17 06:42 Dose: 10 ml - Labs Labs: 03/31/17 06:36 03/31/17 06:36 - Additional Findings Additional findings: - Constitutional Appears: Non-toxic, No Acute Distress - Head Exam Head Exam: ATRAUMATIC, NORMAL INSPECTION, NORMOCEPHALIC - Eye Exam Eye Exam: EOMI - ENT Exam ENT Exam: Mucous Membranes Moist - Neck Exam Neck Exam: Full ROM, Normal Inspection - Respiratory Exam Respiratory Exam: NORMAL BREATHING PATTERN. absent: Respiratory Distress - Cardiovascular Exam Cardiovascular Exam: Regular Rate, +S1, +S2 - GI/Abdominal Exam GI & Abdominal Exam: Soft, Normal Bowel Sounds Note: Non tender to palpation, mild distention, no fluid wave appreciated - Extremities Exam Extremities Exam: Full ROM, Normal Inspection - Neurological Exam Neurological Exam: Alert, Awake, Oriented x3 - Psychiatric Exam Psychiatric exam: Normal Affect, Normal Mood - Skin Skin Exam: Dry, Intact, Normal Color, Warm Assessment and Plan - Assessment and Plan (Free Text) Assessment: 36yo F w/ ESRD on peritoneal dialysis admitted for SBP Abdominal pain 2/2 to SBP 04/01: Continue IV Abx. Afebrile. Continue Morphine 2mg IVP Q4H PRN, moderate pain. 03/31: Patient was explained in detail that she needs to clean her abdomen in a sterile fashion when she does peritoneal dialysis and keep the area extremely clean in order to prevent further SBP. Patient verbalized understanding. PD fluid with staph epi. Continue IV Abx. Nephro consult. recs appreciated. Dr. Jordan -patient will need 2 more days IV abx and will need to take abx as outpatient for prophylaxis for SBP -renal diet -blood cultures negative x72hrs -morphine2 mg q 4 hrs IV prn severe pain -ID consult. Dr. Sosa. recs appreciated. -Afebrile since 03/27, Last temp 101.5F -cefazolin IV (start date 03/26) -ceftriaxone IV 1 g daily (start date 03/26) -vancomycin 1 g MWF (start date 03/27) hx of anxiety -continue lexapro daily hx of peritoneal dialysis nephro consult as above. continue cinacalcet hx of HTN 04/01: Patient was hypotensive yesterday at 90/60 (likely 2/2 morphine). All BP meds stopped except for Clonidine 0.2mg PO BID. - lisinopril 20 po daily - minoxidil 5 PO BID - clonidine .2 mg PO BID - norvasc PO daily - asa 81 mg po daily Anemia -normocytic -continue ferrous sulfate 325 PO daily GI/DVT ppx -protonix daily -SCDs Disposition: When patient completes inpatient treatment and is stable for discharge, she will need 28 days of peritoneal inserted vancomycin for her infection. Also, the following abx will be prescribed by mouth: Norfloxacin 400mg PO daily or Cipro 750mg PO Weekly or Bactrim DS M,T,W,Th,F Case discussed with attending. All medical management as per Dr. Denis Orr <Vanessa Orr - Last Filed: 04/06/17 17:27> Objective - Vital Signs/Intake and Output Vital Signs (last 24 hours): Temp Pulse Resp BP Pulse Ox 98.4 F 70 20 128/81 97 04/06/17 07:40 04/06/17 07:40 04/06/17 07:40 04/06/17 07:40 04/06/17 07:40 Intake and Output: 04/06/17 04/06/17 06:59 18:59 Intake Total 240 Balance 240 - Labs Labs: 04/06/17 11:49 04/06/17 11:49 Assessment and Plan (1) Abdominal pain Status: Acute (2) ESRD (end stage renal disease) Status: Acute (3) Hypertensive chronic kidney disease with stage 5 chronic kidney disease or end stage renal disease Status: Acute (4) Hypertensive urgency Status: Acute (5) Patient on peritoneal dialysis Status: Acute (6) Peritonitis Status: Acute (7) AMAPRO (acute kidney injury) Status: Acute (8) Acute cholecystitis Status: Acute (9) Acute peritonitis Status: Acute (10) Anemia Status: Acute (11) Benign hypertensive kidney disease with end stage renal disease Status: Acute (12) CHF (congestive heart failure) Status: Acute (13) CKD (chronic kidney disease) stage 5, GFR less than 15 ml/min Status: Acute (14) CKD stage 5 secondary to hypertension Status: Acute (15) Chest pain Status: Acute (16) Dependency on pain medication Status: Acute (17) ESRD (end stage renal disease) Status: Acute (18) ESRD (end stage renal disease) Status: Acute (19) Elevated lipase Status: Acute (20) End stage renal disease Status: Acute (21) HTN (hypertension) Status: Acute (22) Hypertension Status: Acute (23) Hypertensive chronic kidney disease with stage 5 chronic kidney disease or end stage renal disease Status: Acute (24) Hypertensive emergency Status: Acute (25) Hypokalemia Status: Acute (26) Hypokalemia Status: Acute (27) Hypokalemia Status: Acute (28) Hypoxia Status: Acute (29) Intractable abdominal pain Status: Acute (30) NSTEMI (non-ST elevated myocardial infarction) Status: Acute (31) Nausea Status: Acute (32) Nausea & vomiting Status: Acute (33) Nephrolithiasis Status: Acute (34) PUD (peptic ulcer disease) Status: Acute (35) Pneumonia Status: Acute (36) Prophylactic measure Status: Acute (37) Prophylactic measure Status: Acute (38) Proteinuria Status: Acute (39) Renal failure Status: Acute (40) Renal insufficiency Status: Acute (41) Uncontrolled hypertension Status: Acute (42) Vomiting Status: Acute Attending/Attestation - Attestation I have personally seen and examined this patient.: Yes I have fully participated in the care of the patient.: Yes I have reviewed all pertinent clinical information, including history, physical exam and plan: Yes Notes (Text): Patient examined. No acute overnight events. Continue cefepime and cefazolin. Continue aspirin. Continue antihypertensive medications. Continue supportive care.
--- NOTE | 2017-04-01 11:26 | CP.PCM.PN ---
Subjective - Date & Time of Evaluation Date of Evaluation: 04/01/17 Time of Evaluation: 10:00 - Subjective Subjective: General Surgery Note for Dr. Burgos Patient and seen at bedside. No acute event overnight. Patient lying in bed comfortably. She is currently denying pain. She is tolerating diet. Patient given lactulose for constipation. No other complaints at this time. Objective - Vital Signs/Intake and Output Vital Signs (last 24 hours): Temp Pulse Resp BP Pulse Ox 98.4 F 64 20 101/64 94 L 04/01/17 07:48 04/01/17 07:48 04/01/17 07:48 04/01/17 07:48 04/01/17 07:48 - Medications Medications: Current Medications Acetaminophen (Tylenol 325mg Tab) 650 mg PO Q6 PRN PRN Reason: Temperature Last Admin: 03/27/17 17:07 Dose: 650 mg Aspirin (Ecotrin) 81 mg PO DAILY [facility] Last Admin: 04/01/17 09:40 Dose: 81 mg Calcium Acetate (Phoslo) 667 mg PO TIDCC [facility] Last Admin: 04/01/17 08:23 Dose: 667 mg Cinacalcet (Sensipar) 30 mg PO DAILY [facility] Last Admin: 04/01/17 09:40 Dose: 30 mg Clonidine HCl (Catapres) 0.2 mg PO BID [facility] Last Admin: 04/01/17 09:44 Dose: Not Given Diclofenac Sodium (Voltaren) 75 mg PO BID PRN PRN Reason: ` Escitalopram Oxalate (Lexapro) 10 mg PO HS [facility] Last Admin: 03/31/17 21:50 Dose: 10 mg Ferrous Sulfate (Feosol) 325 mg PO DAILY [facility] Last Admin: 04/01/17 09:40 Dose: 325 mg Cefepime HCl (Maxipime Iv 1 Gm Premix) 1 gm in 50 mls @ 100 mls/hr IVPB Q24H [facility] Last Admin: 03/31/17 18:31 Dose: 100 mls/hr Cefazolin Sodium 250 mg/ (Peritoneal Dialysis Solution) 2,000 mls @ 0 mls/hr IP Q6 [facility] PRN Reason: UD Last Admin: 04/01/17 06:04 Dose: 2,000 mls/hr Lactulose (Enulose) 20 gm PO DAILY [facility] Last Admin: 04/01/17 09:40 Dose: 20 gm Lisinopril (Zestril) 20 mg PO DAILY [facility] Last Admin: 04/01/17 09:44 Dose: Not Given Morphine Sulfate (Morphine) 2 mg IVP Q4 PRN PRN Reason: Pain, moderate (4-7) Last Admin: 04/01/17 06:37 Dose: 2 mg Ondansetron HCl (Zofran Inj) 4 mg IVP Q6H PRN PRN Reason: Nausea/Vomiting Last Admin: 03/27/17 14:23 Dose: 4 mg Pantoprazole Sodium (Protonix Ec Tab) 40 mg PO DAILY [facility] Last Admin: 04/01/17 09:40 Dose: 40 mg Promethazine HCl/Dextromethorphan (Phenergan Dm Syrup) 10 ml PO Q8 PRN PRN Reason: Cough Last Admin: 04/01/17 06:42 Dose: 10 ml - Labs Labs: 03/31/17 06:36 03/31/17 06:36 - Constitutional Appears: No Acute Distress - Head Exam Head Exam: ATRAUMATIC, NORMOCEPHALIC - Eye Exam Eye Exam: Normal appearance - ENT Exam ENT Exam: Mucous Membranes Moist - Respiratory Exam Respiratory Exam: NORMAL BREATHING PATTERN - Cardiovascular Exam Cardiovascular Exam: REGULAR RHYTHM - GI/Abdominal Exam GI & Abdominal Exam: Soft. absent: Distended, Firm, Guarding, Tenderness, Rebound Additional comments: PD catheter in place and functioning properly - Neurological Exam Neurological Exam: Alert, Awake, Oriented x3 - Psychiatric Exam Psychiatric exam: Normal Affect, Normal Mood - Skin Skin Exam: Dry, Normal Color, Warm Assessment and Plan - Assessment and Plan (Free Text) Plan: 36 F with abdominal pain and findings of free air on CT scan -Continue peritoneal dialysis via catheter -Serial abdominal exams -Analgesics PRN -Discussed with Dr. Loretta Malik PGY1
[2017-04-01 12:06] LABS: BASO % 0.2 % (0.0-2.0); EOS # 0.2 K/uL (0.0-0.7); EOS % 2.4 % (0.0-4.0); HEMATOCRIT 35.9 % (34.0-47.0); LYMPH # 1.1 K/uL (1.0-4.3); LYMPH % 13.2 % (20.0-40.0); MEAN CELL VOLUME 88.4 fL (81.0-99.0); MEAN CORPUSCULAR HEMOGLOBIN 29.6 pg (27.0-31.0); MEAN CORPUSCULAR HGB CONC 33.5 g/dL (33.0-37.0); MEAN PLATELET VOLUME 8.1 fL (7.2-11.7); MONO # 0.8 K/uL (0.0-0.8); MONO % 9.6 % (0.0-10.0); RED CELL DISTRIBUTION WIDTH 14.2 % (11.5-14.5); WHITE BLOOD COUNT 8.7 K/uL (4.8-10.8)
[2017-04-01] MEDS ORDERED: CEFAZOLIN IVPB ONE ×2 (12:55→13:15)
[2017-04-01] MEDS ORDERED: DIANEAL PD IVPB ONE ×2 (12:55→13:15)
[2017-04-01 12:56] LABS: ALB/GLOB RATIO 1.4 (1.0-2.1); BILIRUBIN,TOTAL 0.5 mg/dL (0.2-1.3); CALCIUM 8.2 mg/dl (8.6-10.4); MAGNESIUM 1.9 mg/dL (1.6-2.3); PHOSPHOROUS 3.7 mg/dL (2.5-4.5); POTASSIUM 3.6 mmol/L (3.6-5.2); TOTAL PROTEIN 5.7 g/dL (6.3-8.3)
--- NOTE | 2017-04-01 14:01 | CP.PCM.PN ---
Subjective - Date & Time of Evaluation Date of Evaluation: 04/01/17 Time of Evaluation: 09:45 - Subjective Subjective: not toxic c/o chronic abdominal pain on IP ancef surgical f/u of abdominal exams noted CT scan of abdomen fluid clear 700 wbc in PD fluid no chest pain no acute sob appetite fair weak no urinary changes no rash no joint pain no headache Objective - Vital Signs/Intake and Output Vital Signs (last 24 hours): Temp Pulse Resp BP Pulse Ox 98.4 F 69 20 146/79 94 L 04/01/17 07:48 04/01/17 13:39 04/01/17 07:48 04/01/17 13:39 04/01/17 07:48 - Medications Medications: Current Medications Acetaminophen (Tylenol 325mg Tab) 650 mg PO Q6 PRN PRN Reason: Temperature Last Admin: 03/27/17 17:07 Dose: 650 mg Aspirin (Ecotrin) 81 mg PO DAILY [facility] Last Admin: 04/01/17 09:40 Dose: 81 mg Calcium Acetate (Phoslo) 667 mg PO TIDCC [facility] Last Admin: 04/01/17 12:04 Dose: 667 mg Cinacalcet (Sensipar) 30 mg PO DAILY [facility] Last Admin: 04/01/17 09:40 Dose: 30 mg Clonidine HCl (Catapres) 0.2 mg PO BID [facility] Last Admin: 04/01/17 09:44 Dose: Not Given Diclofenac Sodium (Voltaren) 75 mg PO BID PRN PRN Reason: ` Escitalopram Oxalate (Lexapro) 10 mg PO HS [facility] Last Admin: 03/31/17 21:50 Dose: 10 mg Ferrous Sulfate (Feosol) 325 mg PO DAILY [facility] Last Admin: 04/01/17 09:40 Dose: 325 mg Cefepime HCl (Maxipime Iv 1 Gm Premix) 1 gm in 50 mls @ 100 mls/hr IVPB Q24H [facility] Last Admin: 03/31/17 18:31 Dose: 100 mls/hr Cefazolin Sodium 250 mg/ (Peritoneal Dialysis Solution) 2,000 mls @ 0 mls/hr IP Q6 [facility] PRN Reason: UD Last Admin: 04/01/17 12:03 Dose: 200 mls/hr Cefazolin Sodium 0.25 gm/ (Peritoneal Dialysis Solution) 2,000 mls @ 2,000 mls/ hr IVPB ONCE ONE Stop: 04/01/17 14:14 Last Admin: 04/01/17 13:37 Dose: 2,000 mls/hr Lactulose (Enulose) 20 gm PO DAILY [facility] Last Admin: 04/01/17 09:40 Dose: 20 gm Lisinopril (Zestril) 20 mg PO DAILY [facility] Last Admin: 04/01/17 09:44 Dose: Not Given Morphine Sulfate (Morphine) 2 mg IVP Q4 PRN PRN Reason: Pain, moderate (4-7) Last Admin: 04/01/17 13:43 Dose: 2 mg Ondansetron HCl (Zofran Inj) 4 mg IVP Q6H PRN PRN Reason: Nausea/Vomiting Last Admin: 03/27/17 14:23 Dose: 4 mg Pantoprazole Sodium (Protonix Ec Tab) 40 mg PO DAILY [facility] Last Admin: 04/01/17 09:40 Dose: 40 mg Promethazine HCl/Dextromethorphan (Phenergan Dm Syrup) 10 ml PO Q8 PRN PRN Reason: Cough Last Admin: 04/01/17 06:42 Dose: 10 ml - Labs Labs: 04/01/17 11:55 04/01/17 11:55 - Constitutional Appears: Non-toxic, No Acute Distress - Head Exam Head Exam: ATRAUMATIC, NORMAL INSPECTION - Eye Exam Eye Exam: EOMI, Normal appearance - ENT Exam ENT Exam: Mucous Membranes Moist - Neck Exam Neck Exam: Full ROM. absent: Lymphadenopathy - Respiratory Exam Respiratory Exam: NORMAL BREATHING PATTERN. absent: Accessory Muscle Use - Cardiovascular Exam Cardiovascular Exam: REGULAR RHYTHM. absent: Rubs - GI/Abdominal Exam GI & Abdominal Exam: Soft, Tenderness. absent: Guarding, Rigid - Extremities Exam Extremities Exam: absent: Pedal Edema - Neurological Exam Neurological Exam: Alert, Awake, Oriented x3 Assessment and Plan - Assessment and Plan (Free Text) Plan: ESRD hx of substance abuse staph epi peritonitis chronic abdominal pain continued surgical f/u continue AB
--- NOTE | 2017-04-01 15:45 | CP.PCM.PN ---
Subjective - Date & Time of Evaluation Date of Evaluation: 04/01/17 Time of Evaluation: 08:00 - Subjective Subjective: iv RX IN PROGRESS TOLERATING WELL LESS ABD PAIN Objective - Vital Signs/Intake and Output Vital Signs (last 24 hours): Temp Pulse Resp BP Pulse Ox 98.8 F 69 20 146/79 94 L 04/01/17 13:00 04/01/17 13:39 04/01/17 13:00 04/01/17 13:39 04/01/17 07:48 - Medications Medications: Current Medications Acetaminophen (Tylenol 325mg Tab) 650 mg PO Q6 PRN PRN Reason: Temperature Last Admin: 03/27/17 17:07 Dose: 650 mg Aspirin (Ecotrin) 81 mg PO DAILY [facility] Last Admin: 04/01/17 09:40 Dose: 81 mg Calcium Acetate (Phoslo) 667 mg PO TIDCC [facility] Last Admin: 04/01/17 12:04 Dose: 667 mg Cinacalcet (Sensipar) 30 mg PO DAILY [facility] Last Admin: 04/01/17 09:40 Dose: 30 mg Clonidine HCl (Catapres) 0.2 mg PO BID [facility] Last Admin: 04/01/17 09:44 Dose: Not Given Diclofenac Sodium (Voltaren) 75 mg PO BID PRN PRN Reason: ` Escitalopram Oxalate (Lexapro) 10 mg PO HS [facility] Last Admin: 03/31/17 21:50 Dose: 10 mg Ferrous Sulfate (Feosol) 325 mg PO DAILY [facility] Last Admin: 04/01/17 09:40 Dose: 325 mg Cefepime HCl (Maxipime Iv 1 Gm Premix) 1 gm in 50 mls @ 100 mls/hr IVPB Q24H [facility] Last Admin: 03/31/17 18:31 Dose: 100 mls/hr Cefazolin Sodium 250 mg/ (Peritoneal Dialysis Solution) 2,000 mls @ 0 mls/hr IP Q6 [facility] PRN Reason: UD Last Admin: 04/01/17 12:03 Dose: 200 mls/hr Lactulose (Enulose) 20 gm PO DAILY [facility] Last Admin: 04/01/17 09:40 Dose: 20 gm Lisinopril (Zestril) 20 mg PO DAILY [facility] Last Admin: 04/01/17 09:44 Dose: Not Given Morphine Sulfate (Morphine) 2 mg IVP Q4 PRN PRN Reason: Pain, moderate (4-7) Last Admin: 04/01/17 13:43 Dose: 2 mg Ondansetron HCl (Zofran Inj) 4 mg IVP Q6H PRN PRN Reason: Nausea/Vomiting Last Admin: 03/27/17 14:23 Dose: 4 mg Pantoprazole Sodium (Protonix Ec Tab) 40 mg PO DAILY [facility] Last Admin: 04/01/17 09:40 Dose: 40 mg Promethazine HCl/Dextromethorphan (Phenergan Dm Syrup) 10 ml PO Q8 PRN PRN Reason: Cough Last Admin: 04/01/17 06:42 Dose: 10 ml - Labs Labs: 04/01/17 11:55 04/01/17 11:55 - Constitutional Appears: Non-toxic, Chronically Ill - Head Exam Head Exam: NORMOCEPHALIC - Eye Exam Eye Exam: PERRL - ENT Exam ENT Exam: Mucous Membranes Dry - Neck Exam Neck Exam: absent: Lymphadenopathy - Respiratory Exam Respiratory Exam: Decreased Breath Sounds - Cardiovascular Exam Cardiovascular Exam: REGULAR RHYTHM - GI/Abdominal Exam GI & Abdominal Exam: Distended, Soft, Tenderness - Rectal Exam Rectal Exam: Deferred - Exam Exam: NORMAL INSPECTION Assessment and Plan (1) Abdominal pain Status: Acute (2) ESRD (end stage renal disease) Status: Acute (3) Patient on peritoneal dialysis Status: Acute (4) Peritonitis Status: Acute
[2017-04-01] MEDS: Cefepime IV 1 gm in Dextrose 1 GM/50 ML BAG IVPB SCH (18:42)
--- NOTE | 2017-04-01 19:14 | CP.PCM.PN ---
Subjective - Date & Time of Evaluation Date of Evaluation: 04/01/17 Time of Evaluation: 10:00 - Subjective Subjective: clinically same Objective - Vital Signs/Intake and Output Vital Signs (last 24 hours): Temp Pulse Resp BP Pulse Ox 98.7 F 58 L 20 114/67 97 04/01/17 18:35 04/01/17 18:35 04/01/17 18:35 04/01/17 18:35 04/01/17 18:35 - Medications Medications: Current Medications Acetaminophen (Tylenol 325mg Tab) 650 mg PO Q6 PRN PRN Reason: Temperature Last Admin: 03/27/17 17:07 Dose: 650 mg Aspirin (Ecotrin) 81 mg PO DAILY [facility] Last Admin: 04/01/17 09:40 Dose: 81 mg Calcium Acetate (Phoslo) 667 mg PO TIDCC [facility] Last Admin: 04/01/17 18:42 Dose: 667 mg Cinacalcet (Sensipar) 30 mg PO DAILY [facility] Last Admin: 04/01/17 09:40 Dose: 30 mg Clonidine HCl (Catapres) 0.2 mg PO BID [facility] Last Admin: 04/01/17 18:51 Dose: Not Given Diclofenac Sodium (Voltaren) 75 mg PO BID PRN PRN Reason: ` Escitalopram Oxalate (Lexapro) 10 mg PO HS [facility] Last Admin: 03/31/17 21:50 Dose: 10 mg Ferrous Sulfate (Feosol) 325 mg PO DAILY [facility] Last Admin: 04/01/17 09:40 Dose: 325 mg Cefepime HCl (Maxipime Iv 1 Gm Premix) 1 gm in 50 mls @ 100 mls/hr IVPB Q24H [facility] Last Admin: 04/01/17 18:42 Dose: 100 mls/hr Cefazolin Sodium 250 mg/ (Peritoneal Dialysis Solution) 2,000 mls @ 0 mls/hr IP Q6 [facility] PRN Reason: UD Last Admin: 04/01/17 18:13 Dose: 2,000 mls/hr Lactulose (Enulose) 20 gm PO DAILY [facility] Last Admin: 04/01/17 09:40 Dose: 20 gm Lisinopril (Zestril) 20 mg PO DAILY [facility] Last Admin: 04/01/17 09:44 Dose: Not Given Morphine Sulfate (Morphine) 2 mg IVP Q4 PRN PRN Reason: Pain, moderate (4-7) Last Admin: 04/01/17 13:43 Dose: 2 mg Ondansetron HCl (Zofran Inj) 4 mg IVP Q6H PRN PRN Reason: Nausea/Vomiting Last Admin: 03/27/17 14:23 Dose: 4 mg Pantoprazole Sodium (Protonix Ec Tab) 40 mg PO DAILY [facility] Last Admin: 04/01/17 09:40 Dose: 40 mg Promethazine HCl/Dextromethorphan (Phenergan Dm Syrup) 10 ml PO Q8 PRN PRN Reason: Cough Last Admin: 04/01/17 06:42 Dose: 10 ml - Labs Labs: 04/01/17 11:55 04/01/17 11:55 Assessment and Plan (1) Abdominal pain Status: Acute (2) ESRD (end stage renal disease) Status: Acute (3) Hypertensive chronic kidney disease with stage 5 chronic kidney disease or end stage renal disease Status: Acute (4) Hypertensive urgency Status: Acute (5) Patient on peritoneal dialysis Status: Acute (6) Peritonitis Status: Acute (7) AMPARO (acute kidney injury) Status: Acute (8) Acute cholecystitis Status: Acute (9) Acute peritonitis Status: Acute (10) Anemia Status: Acute (11) Benign hypertensive kidney disease with end stage renal disease Status: Acute (12) CHF (congestive heart failure) Status: Acute (13) CKD (chronic kidney disease) stage 5, GFR less than 15 ml/min Status: Acute (14) CKD stage 5 secondary to hypertension Status: Acute (15) Chest pain Status: Acute (16) Dependency on pain medication Status: Acute (17) ESRD (end stage renal disease) Status: Acute (18) ESRD (end stage renal disease) Status: Acute (19) Elevated lipase Status: Acute (20) End stage renal disease Status: Acute (21) HTN (hypertension) Status: Acute (22) Hypertension Status: Acute (23) Hypertensive chronic kidney disease with stage 5 chronic kidney disease or end stage renal disease Status: Acute (24) Hypertensive emergency Status: Acute (25) Hypokalemia Status: Acute (26) Hypokalemia Status: Acute (27) Hypokalemia Status: Acute (28) Hypoxia Status: Acute (29) Intractable abdominal pain Status: Acute (30) NSTEMI (non-ST elevated myocardial infarction) Status: Acute (31) Nausea Status: Acute (32) Nausea & vomiting Status: Acute (33) Nephrolithiasis Status: Acute (34) PUD (peptic ulcer disease) Status: Acute (35) Pneumonia Status: Acute (36) Prophylactic measure Status: Acute (37) Prophylactic measure Status: Acute (38) Proteinuria Status: Acute (39) Renal failure Status: Acute (40) Renal insufficiency Status: Acute (41) Uncontrolled hypertension Status: Acute (42) Vomiting Status: Acute
[2017-04-02] MEDS: DIANEAL PD IP SCH ×3 (05:46→18:05)
[2017-04-02] MEDS: CEFAZOLIN IP SCH ×3 (05:46→18:05)
[2017-04-02 07:19] LABS: BASO % 0.4 % (0.0-2.0); EOS # 0.2 K/uL (0.0-0.7); EOS % 2.1 % (0.0-4.0); HEMATOCRIT 37.4 % (34.0-47.0); LYMPH # 1.3 K/uL (1.0-4.3); LYMPH % 13.3 % (20.0-40.0); MEAN CELL VOLUME 87.9 fL (81.0-99.0); MEAN CORPUSCULAR HEMOGLOBIN 30.3 pg (27.0-31.0); MEAN CORPUSCULAR HGB CONC 34.4 g/dL (33.0-37.0); MEAN PLATELET VOLUME 8.5 fL (7.2-11.7); MONO # 0.6 K/uL (0.0-0.8); MONO % 6.3 % (0.0-10.0); RED CELL DISTRIBUTION WIDTH 14.2 % (11.5-14.5); WHITE BLOOD COUNT 9.9 K/uL (4.8-10.8)
--- NOTE | 2017-04-02 07:23 | CP.PCM.PN ---
Subjective - Date & Time of Evaluation Date of Evaluation: 04/02/17 Time of Evaluation: 07:00 - Subjective Subjective: General Surgery Note for Dr. Burgos Patient and seen at bedside. No acute event overnight. She is currently denying pain and tolerating diet. No other complaints at this time. Objective - Vital Signs/Intake and Output Vital Signs (last 24 hours): Temp Pulse Resp BP Pulse Ox 98.1 F 68 20 114/76 94 L 04/02/17 06:00 04/02/17 06:00 04/02/17 00:00 04/02/17 06:00 04/01/17 23:55 Intake and Output: 04/02/17 04/02/17 06:59 18:59 Intake Total 240 Balance 240 - Medications Medications: Current Medications Acetaminophen (Tylenol 325mg Tab) 650 mg PO Q6 PRN PRN Reason: Temperature Last Admin: 03/27/17 17:07 Dose: 650 mg Aspirin (Ecotrin) [address] [facility] Last Admin: 04/01/17 09:40 Dose: 81 mg Calcium Acetate (Phoslo) [address] [facility] Last Admin: 04/01/17 18:42 Dose: 667 mg Cinacalcet (Sensipar) [address] [facility] Last Admin: 04/01/17 09:40 Dose: 30 mg Clonidine HCl (Catapres) 0.[address] [facility] Last Admin: 04/01/17 18:51 Dose: Not Given Diclofenac Sodium (Voltaren) 75 mg PO BID PRN PRN Reason: ` Escitalopram Oxalate (Lexapro) [address] [facility] Last Admin: 04/01/17 21:37 Dose: 10 mg Ferrous Sulfate (Feosol) [address] [facility] Last Admin: 04/01/17 09:40 Dose: 325 mg Cefepime HCl (Maxipime Iv 1 Gm Premix) 1 gm in 50 mls @ 100 mls/hr IVPB Q24H [facility] Last Admin: 04/01/17 18:42 Dose: 100 mls/hr Cefazolin Sodium 250 mg/ (Peritoneal Dialysis Solution) 2,000 mls @ 0 mls/hr IP Q6 [facility] PRN Reason: UD Last Admin: 04/02/17 05:46 Dose: 2,000 mls/hr Lactulose (Enulose) [address] [facility] Last Admin: 04/01/17 09:40 Dose: 20 gm Lisinopril (Zestril) [address] [facility] Last Admin: 04/01/17 09:44 Dose: Not Given Morphine Sulfate (Morphine) 2 mg IVP Q4 PRN PRN Reason: Pain, moderate (4-7) Last Admin: 04/02/17 02:32 Dose: 2 mg Ondansetron HCl (Zofran Inj) 4 mg IVP Q6H PRN PRN Reason: Nausea/Vomiting Last Admin: 03/27/17 14:23 Dose: 4 mg Pantoprazole Sodium (Protonix Ec Tab) [address] [facility] Last Admin: 04/01/17 09:40 Dose: 40 mg Promethazine HCl/Dextromethorphan (Phenergan Dm Syrup) 10 ml PO Q8 PRN PRN Reason: Cough Last Admin: 04/01/17 06:42 Dose: 10 ml - Labs Labs: 04/01/17 11:55 04/01/17 11:55 - Constitutional Appears: No Acute Distress - Eye Exam Eye Exam: Normal appearance - ENT Exam ENT Exam: Mucous Membranes Moist - Respiratory Exam Respiratory Exam: NORMAL BREATHING PATTERN - Cardiovascular Exam Cardiovascular Exam: REGULAR RHYTHM - GI/Abdominal Exam GI & Abdominal Exam: Soft. absent: Distended, Firm, Guarding, Rigid, Tenderness , Rebound Additional comments: PD catheter in place and functioning properly - Neurological Exam Neurological Exam: Alert, Awake, Oriented x3 - Psychiatric Exam Psychiatric exam: Normal Affect, Normal Mood - Skin Skin Exam: Dry, Intact, Normal Color, Warm Assessment and Plan - Assessment and Plan (Free Text) Plan: 36 F with abdominal pain and findings of free air on CT scan -Patient asymptomatic -Continue peritoneal dialysis via catheter -Analgesics PRN -Discussed with Dr. Loretta Malik PGY1
[2017-04-02 08:15] LABS: BILIRUBIN,TOTAL 0.5 mg/dL (0.2-1.3); CALCIUM 8.1 mg/dl (8.6-10.4); PHOSPHOROUS 3.7 mg/dL (2.5-4.5); POTASSIUM 3.5 mmol/L (3.6-5.2); TOTAL PROTEIN 6.1 g/dL (6.3-8.3)
[2017-04-02 08:17] LABS: ALB/GLOB RATIO 1.4 (1.0-2.1); MAGNESIUM 1.8 mg/dL (1.6-2.3)
--- NOTE | 2017-04-02 09:45 | CP.PCM.PN ---
Subjective - Date & Time of Evaluation Date of Evaluation: 04/02/17 Time of Evaluation: 09:42 - Subjective Subjective: feels better PD fluid now clear BP controlled c/o cough, dry Objective - Vital Signs/Intake and Output Vital Signs (last 24 hours): Temp Pulse Resp BP Pulse Ox 98.3 F 66 20 111/71 97 04/02/17 08:15 04/02/17 08:15 04/02/17 08:15 04/02/17 08:15 04/02/17 08:15 Intake and Output: 04/02/17 04/02/17 06:59 18:59 Intake Total 240 Balance 240 - Medications Medications: Current Medications Acetaminophen (Tylenol 325mg Tab) 650 mg PO Q6 PRN PRN Reason: Temperature Last Admin: 03/27/17 17:07 Dose: 650 mg Aspirin (Ecotrin) 81 mg PO DAILY [facility] Last Admin: 04/01/17 09:40 Dose: 81 mg Calcium Acetate (Phoslo) 667 mg PO TIDCC [facility] Last Admin: 04/02/17 08:15 Dose: 667 mg Cinacalcet (Sensipar) 30 mg PO DAILY [facility] Last Admin: 04/01/17 09:40 Dose: 30 mg Clonidine HCl (Catapres) 0.2 mg PO BID [facility] Last Admin: 04/01/17 18:51 Dose: Not Given Diclofenac Sodium (Voltaren) 75 mg PO BID PRN PRN Reason: ` Escitalopram Oxalate (Lexapro) 10 mg PO HS [facility] Last Admin: 04/01/17 21:37 Dose: 10 mg Ferrous Sulfate (Feosol) 325 mg PO DAILY [facility] Last Admin: 04/01/17 09:40 Dose: 325 mg Cefepime HCl (Maxipime Iv 1 Gm Premix) 1 gm in 50 mls @ 100 mls/hr IVPB Q24H [facility] Last Admin: 04/01/17 18:42 Dose: 100 mls/hr Cefazolin Sodium 250 mg/ (Peritoneal Dialysis Solution) 2,000 mls @ 0 mls/hr IP Q6 [facility] PRN Reason: UD Last Admin: 04/02/17 05:46 Dose: 2,000 mls/hr Lactulose (Enulose) 20 gm PO DAILY [facility] Last Admin: 04/01/17 09:40 Dose: 20 gm Lisinopril (Zestril) 20 mg PO DAILY [facility] Last Admin: 04/01/17 09:44 Dose: Not Given Morphine Sulfate (Morphine) 2 mg IVP Q4 PRN PRN Reason: Pain, moderate (4-7) Last Admin: 04/02/17 02:32 Dose: 2 mg Ondansetron HCl (Zofran Inj) 4 mg IVP Q6H PRN PRN Reason: Nausea/Vomiting Last Admin: 03/27/17 14:23 Dose: 4 mg Pantoprazole Sodium (Protonix Ec Tab) 40 mg PO DAILY [facility] Last Admin: 04/01/17 09:40 Dose: 40 mg Promethazine HCl/Dextromethorphan (Phenergan Dm Syrup) 10 ml PO Q8 PRN PRN Reason: Cough Last Admin: 04/01/17 06:42 Dose: 10 ml - Labs Labs: 04/02/17 07:13 04/02/17 07:13 - Constitutional Appears: No Acute Distress, Chronically Ill - Head Exam Head Exam: ATRAUMATIC, NORMAL INSPECTION - Eye Exam Eye Exam: EOMI, Normal appearance - Neck Exam Neck Exam: Normal Inspection. absent: Tenderness - Respiratory Exam Respiratory Exam: Wheezes, NORMAL BREATHING PATTERN - Cardiovascular Exam Cardiovascular Exam: REGULAR RHYTHM, +S1 - GI/Abdominal Exam GI & Abdominal Exam: Soft. absent: Tenderness - Neurological Exam Neurological Exam: Alert, CN II-XII Intact - Skin Skin Exam: Dry, Warm Assessment and Plan (1) Peritonitis Status: Acute (2) Hypertensive chronic kidney disease with stage 5 chronic kidney disease or end stage renal disease Status: Acute (3) ESRD (end stage renal disease) Status: Acute (4) Acute peritonitis Status: Acute - Assessment and Plan (Free Text) Plan: Same IP ABs recheck cell count add nebulizer
[2017-04-02] MEDS: Pantoprazole 40 mg EC Tab PO SCH (10:31)
[2017-04-02] MEDS: Potassium Chloride 20 mEq/15 ml LIQ UD PO SCH (10:33)
[2017-04-02] MEDS: Albuterol 0.042% Inhal Sol (1.25 mg/3 mL) UD INH SCH ×2 (14:00→19:37)
[2017-04-02] MEDS ORDERED: Albuterol 0.042% Inhal Sol (1.25 mg/3 mL) UD INH PRN (16:20)
--- NOTE | 2017-04-02 16:58 | CP.PCM.PN ---
Subjective - Date & Time of Evaluation Date of Evaluation: 04/02/17 Objective - Vital Signs/Intake and Output Vital Signs (last 24 hours): Temp Pulse Resp BP Pulse Ox 98.9 F 60 18 108/76 95 04/02/17 16:36 04/02/17 16:36 04/02/17 16:36 04/02/17 16:36 04/02/17 16:36 Intake and Output: 04/02/17 04/02/17 06:59 18:59 Intake Total 240 Balance 240 - Medications Medications: Current Medications Acetaminophen (Tylenol 325mg Tab) 650 mg PO Q6 PRN PRN Reason: Temperature Last Admin: 03/27/17 17:07 Dose: 650 mg Albuterol Sulfate (Albuterol 0.042% Inhal Qian (1.25mg/3ml) Ud) 1.25 mg INH RQ6 [facility] Last Admin: 04/02/17 14:00 Dose: 1.25 mg Albuterol Sulfate (Albuterol 0.042% Inhal Qian (1.25mg/3ml) Ud) 1.25 mg INH Q4 PRN PRN Reason: Shortness of Breath Last Admin: 04/02/17 16:25 Dose: 1.25 mg Aspirin (Ecotrin) 81 mg PO DAILY [facility] Last Admin: 04/02/17 10:32 Dose: 81 mg Calcium Acetate (Phoslo) 667 mg PO TIDCC [facility] Last Admin: 04/02/17 12:00 Dose: 667 mg Cinacalcet (Sensipar) 30 mg PO DAILY [facility] Last Admin: 04/02/17 10:34 Dose: 30 mg Clonidine HCl (Catapres) 0.2 mg PO BID [facility] Last Admin: 04/02/17 10:32 Dose: 0.2 mg Diclofenac Sodium (Voltaren) 75 mg PO BID PRN PRN Reason: ` Escitalopram Oxalate (Lexapro) 10 mg PO HS [facility] Last Admin: 04/01/17 21:37 Dose: 10 mg Ferrous Sulfate (Feosol) 325 mg PO DAILY [facility] Last Admin: 04/02/17 10:32 Dose: 325 mg Cefepime HCl (Maxipime Iv 1 Gm Premix) 1 gm in 50 mls @ 100 mls/hr IVPB Q24H [facility] Last Admin: 04/01/17 18:42 Dose: 100 mls/hr Cefazolin Sodium 250 mg/ (Peritoneal Dialysis Solution) 2,000 mls @ 0 mls/hr IP Q6 [facility] PRN Reason: UD Last Admin: 04/02/17 12:00 Dose: 250 mls/hr Lactulose (Enulose) 20 gm PO DAILY [facility] Last Admin: 04/02/17 10:31 Dose: 20 gm Lisinopril (Zestril) 20 mg PO DAILY [facility] Last Admin: 04/02/17 10:32 Dose: 20 mg Morphine Sulfate (Morphine) 2 mg IVP Q4 PRN PRN Reason: Pain, moderate (4-7) Last Admin: 04/02/17 12:56 Dose: 2 mg Ondansetron HCl (Zofran Inj) 4 mg IVP Q6H PRN PRN Reason: Nausea/Vomiting Last Admin: 03/27/17 14:23 Dose: 4 mg Pantoprazole Sodium (Protonix Ec Tab) 40 mg PO DAILY [facility] Last Admin: 04/02/17 10:31 Dose: 40 mg Potassium Chloride (Potassium Chloride Oral Soln) 20 meq PO DAILY [facility] Last Admin: 04/02/17 10:33 Dose: 20 meq Promethazine HCl/Dextromethorphan (Phenergan Dm Syrup) 10 ml PO Q8 PRN PRN Reason: Cough Last Admin: 04/01/17 06:42 Dose: 10 ml - Labs Labs: 04/02/17 07:13 04/02/17 07:13 Assessment and Plan (1) Abdominal pain Status: Acute (2) ESRD (end stage renal disease) Status: Acute (3) Hypertensive chronic kidney disease with stage 5 chronic kidney disease or end stage renal disease Status: Acute (4) Hypertensive urgency Status: Acute (5) Patient on peritoneal dialysis Status: Acute (6) Peritonitis Status: Acute (7) AMPARO (acute kidney injury) Status: Acute (8) Acute cholecystitis Status: Acute (9) Acute peritonitis Status: Acute (10) Anemia Status: Acute (11) Benign hypertensive kidney disease with end stage renal disease Status: Acute (12) CHF (congestive heart failure) Status: Acute (13) CKD (chronic kidney disease) stage 5, GFR less than 15 ml/min Status: Acute (14) CKD stage 5 secondary to hypertension Status: Acute (15) Chest pain Status: Acute (16) Dependency on pain medication Status: Acute (17) ESRD (end stage renal disease) Status: Acute (18) ESRD (end stage renal disease) Status: Acute (19) Elevated lipase Status: Acute (20) End stage renal disease Status: Acute (21) HTN (hypertension) Status: Acute (22) Hypertension Status: Acute (23) Hypertensive chronic kidney disease with stage 5 chronic kidney disease or end stage renal disease Status: Acute (24) Hypertensive emergency Status: Acute (25) Hypokalemia Status: Acute (26) Hypokalemia Status: Acute (27) Hypokalemia Status: Acute (28) Hypoxia Status: Acute (29) Intractable abdominal pain Status: Acute (30) NSTEMI (non-ST elevated myocardial infarction) Status: Acute (31) Nausea Status: Acute (32) Nausea & vomiting Status: Acute (33) Nephrolithiasis Status: Acute (34) PUD (peptic ulcer disease) Status: Acute (35) Pneumonia Status: Acute (36) Prophylactic measure Status: Acute (37) Prophylactic measure Status: Acute (38) Proteinuria Status: Acute (39) Renal failure Status: Acute (40) Renal insufficiency Status: Acute (41) Uncontrolled hypertension Status: Acute (42) Vomiting Status: Acute
[2017-04-02] MEDS: Promethazine DM 12.5 mg-30 mg/10 ml Syrup PO PRN (17:13)
[2017-04-02] MEDS: Cefepime IV 1 gm in Dextrose 1 GM/50 ML BAG IVPB SCH (17:13)
[2017-04-02 20:58] LABS: BODY FLUID TYPE PERITONEAL
[2017-04-02 21:07] LABS: BF GROSS APPEARANCE CLEAR (CLEAR)
[2017-04-03] MEDS: Albuterol 0.042% Inhal Sol (1.25 mg/3 mL) UD INH SCH ×4 (01:05→20:16)
[2017-04-03] MEDS: DIANEAL PD IP SCH ×4 (06:00→18:55)
[2017-04-03] MEDS: CEFAZOLIN IP SCH ×4 (06:00→18:55)
[2017-04-03] MEDS: Promethazine DM 12.5 mg-30 mg/10 ml Syrup PO PRN ×2 (06:19→21:48)
[2017-04-03 07:30] LABS: BASO % 0.4 % (0.0-2.0); EOS # 0.2 K/uL (0.0-0.7); EOS % 2.3 % (0.0-4.0); HEMATOCRIT 34.6 % (34.0-47.0); LYMPH # 1.4 K/uL (1.0-4.3); LYMPH % 18.5 % (20.0-40.0); MEAN CELL VOLUME 87.9 fL (81.0-99.0); MEAN CORPUSCULAR HEMOGLOBIN 30.4 pg (27.0-31.0); MEAN CORPUSCULAR HGB CONC 34.6 g/dL (33.0-37.0); MEAN PLATELET VOLUME 8.4 fL (7.2-11.7); MONO # 0.7 K/uL (0.0-0.8); MONO % 8.9 % (0.0-10.0); RED CELL DISTRIBUTION WIDTH 13.9 % (11.5-14.5); WHITE BLOOD COUNT 7.3 K/uL (4.8-10.8)
[2017-04-03 07:52] LABS: ALB/GLOB RATIO 1.4 (1.0-2.1); BILIRUBIN,TOTAL 0.5 mg/dL (0.2-1.3); CALCIUM 7.7 mg/dl (8.6-10.4); MAGNESIUM 1.9 mg/dL (1.6-2.3); PHOSPHOROUS 4.9 mg/dL (2.5-4.5); POTASSIUM 3.6 mmol/L (3.6-5.2); TOTAL PROTEIN 5.9 g/dL (6.3-8.3)
--- NOTE | 2017-04-03 09:41 | CP.PCM.PN ---
<William Sumner - Last Filed: 04/03/17 17:20> Subjective - Date & Time of Evaluation Date of Evaluation: 04/03/17 Time of Evaluation: 07:10 - Subjective Subjective: PGY2 Resident - Medicine Progress Note Patient seen and examined at bedside. No acute distress. No overnight events. Reports abdominal pain resolved. She is tolerating daily dialysis. She is asking to go home. Denies fever, chills, nausea/vomiting, diarrhea/constipation , dysuria, urinary frequency, change in urinary stream, or any additional acute complaints. Objective - Vital Signs/Intake and Output Vital Signs (last 24 hours): Temp Pulse Resp BP Pulse Ox 97.8 F 45 L 18 108/72 98 04/03/17 06:21 04/03/17 06:21 04/03/17 06:21 04/03/17 06:21 04/03/17 05:43 Intake and Output: 04/03/17 04/03/17 06:59 18:59 Intake Total 256 Balance 256 - Medications Medications: Current Medications Acetaminophen (Tylenol 325mg Tab) 650 mg PO Q6 PRN PRN Reason: Temperature Last Admin: 03/27/17 17:07 Dose: 650 mg Albuterol Sulfate (Albuterol 0.042% Inhal Qian (1.25mg/3ml) Ud) 1.25 mg INH RQ6 [facility] Last Admin: 04/03/17 01:05 Dose: Not Given Albuterol Sulfate (Albuterol 0.042% Inhal Qian (1.25mg/3ml) Ud) 1.25 mg INH Q4 PRN PRN Reason: Shortness of Breath Last Admin: 04/02/17 16:25 Dose: 1.25 mg Aspirin (Ecotrin) 81 mg PO DAILY [facility] Last Admin: 04/02/17 10:32 Dose: 81 mg Calcium Acetate (Phoslo) 667 mg PO TIDCC [facility] Last Admin: 04/03/17 08:50 Dose: 667 mg Cinacalcet (Sensipar) 30 mg PO DAILY [facility] Last Admin: 04/02/17 10:34 Dose: 30 mg Clonidine HCl (Catapres) 0.2 mg PO BID [facility] Last Admin: 04/02/17 17:13 Dose: 0.2 mg Diclofenac Sodium (Voltaren) 75 mg PO BID PRN PRN Reason: ` Escitalopram Oxalate (Lexapro) 10 mg PO HS [facility] Last Admin: 04/02/17 21:28 Dose: 10 mg Ferrous Sulfate (Feosol) 325 mg PO DAILY [facility] Last Admin: 04/02/17 10:32 Dose: 325 mg Cefepime HCl (Maxipime Iv 1 Gm Premix) 1 gm in 50 mls @ 100 mls/hr IVPB Q24H [facility] Last Admin: 04/02/17 17:13 Dose: 100 mls/hr Cefazolin Sodium 250 mg/ (Peritoneal Dialysis Solution) 2,000 mls @ 0 mls/hr IP Q6 [facility] PRN Reason: UD Last Admin: 04/03/17 06:00 Dose: 2,000 mls/hr Lactulose (Enulose) 20 gm PO DAILY [facility] Last Admin: 04/02/17 10:31 Dose: 20 gm Lisinopril (Zestril) 20 mg PO DAILY [facility] Last Admin: 04/02/17 10:32 Dose: 20 mg Morphine Sulfate (Morphine) 2 mg IVP Q4 PRN PRN Reason: Pain, moderate (4-7) Last Admin: 04/02/17 22:25 Dose: 2 mg Ondansetron HCl (Zofran Inj) 4 mg IVP Q6H PRN PRN Reason: Nausea/Vomiting Last Admin: 03/27/17 14:23 Dose: 4 mg Pantoprazole Sodium (Protonix Ec Tab) 40 mg PO DAILY [facility] Last Admin: 04/02/17 10:31 Dose: 40 mg Potassium Chloride (Potassium Chloride Oral Soln) 20 meq PO DAILY [facility] Last Admin: 04/02/17 10:33 Dose: 20 meq Promethazine HCl/Dextromethorphan (Phenergan Dm Syrup) 10 ml PO Q8 PRN PRN Reason: Cough Last Admin: 04/03/17 06:19 Dose: 10 ml - Labs Labs: 04/03/17 06:58 04/03/17 06:58 - Additional Findings Additional findings: - Constitutional Appears: Non-toxic, No Acute Distress - Head Exam Head Exam: ATRAUMATIC, NORMAL INSPECTION, NORMOCEPHALIC - Eye Exam Eye Exam: EOMI - ENT Exam ENT Exam: Mucous Membranes Moist - Neck Exam Neck Exam: Full ROM, Normal Inspection - Respiratory Exam Respiratory Exam: NORMAL BREATHING PATTERN. absent: Respiratory Distress - Cardiovascular Exam Cardiovascular Exam: Regular Rate, +S1, +S2 - GI/Abdominal Exam GI & Abdominal Exam: Soft, Normal Bowel Sounds Note: Non tender to palpation, mild distention, no fluid wave appreciated L abdomen port for peritoneal dialysis is CDI, no erythema. - Extremities Exam Extremities Exam: Full ROM, Normal Inspection - Neurological Exam Neurological Exam: Alert, Awake, Oriented x3 - Psychiatric Exam Psychiatric exam: Normal Affect, Normal Mood - Skin Skin Exam: Dry, Intact, Normal Color, Warm Assessment and Plan - Assessment and Plan (Free Text) Assessment: 36yo F w/ ESRD on peritoneal dialysis admitted for SBP Abdominal pain 2/2 to SBP 04/03: Continue IV Abx. Afebrile. Pain well controlled. Peritoneal Fluid RBC 3, Neut 62, Lymphocytes 24, [place] 10. Abt CT 03/31- mild nonspecific enteritis of small bowel at LUQ; small hiatal hernia. 04/01: Continue IV Abx. Afebrile. Continue Morphine 2mg IVP Q4H PRN, moderate pain. 03/31: Patient was explained in detail that she needs to clean her abdomen in a sterile fashion when she does peritoneal dialysis and keep the area extremely clean in order to prevent further SBP. Patient verbalized understanding. PD fluid with staph epi. Continue IV Abx. Nephro consult. recs appreciated. Dr. Jordan -patient will need 2 more days IV abx and will need to take abx as outpatient for prophylaxis for SBP -renal diet -blood cultures negative x72hrs -morphine2 mg q 4 hrs IV prn severe pain -ID consult. Dr. Sosa. recs appreciated. -Afebrile since 03/27, Last temp 101.5F -cefazolin IV (start date 03/26) -ceftriaxone IV 1 g daily (start date 03/26) -vancomycin 1 g MWF (start date 03/27) hx of anxiety -continue lexapro daily hx of peritoneal dialysis nephro consult as above. continue cinacalcet hx of HTN 04/01: Patient was hypotensive yesterday at 90/60 (likely 2/2 morphine). All BP meds stopped except for Clonidine 0.2mg PO BID. - lisinopril 20 po daily - minoxidil 5 PO BID - clonidine .2 mg PO BID - norvasc PO daily - asa 81 mg po daily Anemia -normocytic -continue ferrous sulfate 325 PO daily GI/DVT ppx -protonix daily -SCDs Disposition: When patient completes inpatient treatment and is stable for discharge, she will need 28 days of peritoneal inserted vancomycin for her infection. Also, the following abx will be prescribed by mouth: Norfloxacin 400mg PO daily or Cipro 750mg PO Weekly or Bactrim DS M,T,W,Th,F Case discussed with attending. All medical management as per Dr. Denis Orr <Vanessa Orr S - Last Filed: 04/06/17 17:29> Objective - Vital Signs/Intake and Output Vital Signs (last 24 hours): Temp Pulse Resp BP Pulse Ox 98.4 F 70 20 128/81 97 04/06/17 07:40 04/06/17 07:40 04/06/17 07:40 04/06/17 07:40 04/06/17 07:40 Intake and Output: 04/06/17 04/06/17 06:59 18:59 Intake Total 240 Balance 240 - Labs Labs: 04/06/17 11:49 04/06/17 11:49 Assessment and Plan (1) Abdominal pain Status: Acute (2) ESRD (end stage renal disease) Status: Acute (3) Hypertensive chronic kidney disease with stage 5 chronic kidney disease or end stage renal disease Status: Acute (4) Hypertensive urgency Status: Acute (5) Patient on peritoneal dialysis Status: Acute (6) Peritonitis Status: Acute (7) AMPARO (acute kidney injury) Status: Acute (8) Acute cholecystitis Status: Acute (9) Acute peritonitis Status: Acute (10) Anemia Status: Acute (11) Benign hypertensive kidney disease with end stage renal disease Status: Acute (12) CHF (congestive heart failure) Status: Acute (13) CKD (chronic kidney disease) stage 5, GFR less than 15 ml/min Status: Acute (14) CKD stage 5 secondary to hypertension Status: Acute (15) Chest pain Status: Acute (16) Dependency on pain medication Status: Acute (17) ESRD (end stage renal disease) Status: Acute (18) ESRD (end stage renal disease) Status: Acute (19) Elevated lipase Status: Acute (20) End stage renal disease Status: Acute (21) HTN (hypertension) Status: Acute (22) Hypertension Status: Acute (23) Hypertensive chronic kidney disease with stage 5 chronic kidney disease or end stage renal disease Status: Acute (24) Hypertensive emergency Status: Acute (25) Hypokalemia Status: Acute (26) Hypokalemia Status: Acute (27) Hypokalemia Status: Acute (28) Hypoxia Status: Acute (29) Intractable abdominal pain Status: Acute (30) NSTEMI (non-ST elevated myocardial infarction) Status: Acute (31) Nausea Status: Acute (32) Nausea & vomiting Status: Acute (33) Nephrolithiasis Status: Acute (34) PUD (peptic ulcer disease) Status: Acute (35) Pneumonia Status: Acute (36) Prophylactic measure Status: Acute (37) Prophylactic measure Status: Acute (38) Proteinuria Status: Acute (39) Renal failure Status: Acute (40) Renal insufficiency Status: Acute (41) Uncontrolled hypertension Status: Acute (42) Vomiting Status: Acute Attending/Attestation - Attestation I have personally seen and examined this patient.: Yes I have fully participated in the care of the patient.: Yes I have reviewed all pertinent clinical information, including history, physical exam and plan: Yes Notes (Text): Patient examined. Patient better. Tolerating daily dialysis. Abdominal pain is resolved. Continue cefepime and cefazolin. Continue lactulose. Continue aspirin. Continue supportive care.
[2017-04-03] MEDS: Pantoprazole 40 mg EC Tab PO SCH (10:08)
[2017-04-03] MEDS: Potassium Chloride 20 mEq/15 ml LIQ UD PO SCH (10:14)
--- NOTE | 2017-04-03 10:28 | CP.PCM.PN ---
Subjective - Date & Time of Evaluation Date of Evaluation: 04/03/17 Time of Evaluation: 10:25 - Subjective Subjective: Feels better- less cough, no more wheezing abdominal pains better repeat PD fluid cell count normal PD going well low K being corrected Objective - Vital Signs/Intake and Output Vital Signs (last 24 hours): Temp Pulse Resp BP Pulse Ox 98.6 F 48 L 20 86/61 L 95 04/03/17 07:00 04/03/17 07:00 04/03/17 07:00 04/03/17 07:00 04/03/17 07:00 Intake and Output: 04/03/17 04/03/17 06:59 18:59 Intake Total 256 Balance 256 - Medications Medications: Current Medications Acetaminophen (Tylenol 325mg Tab) 650 mg PO Q6 PRN PRN Reason: Temperature Last Admin: 03/27/17 17:07 Dose: 650 mg Albuterol Sulfate (Albuterol 0.042% Inhal Qian (1.25mg/3ml) Ud) 1.25 mg INH RQ6 [facility] Last Admin: 04/03/17 10:01 Dose: Not Given Albuterol Sulfate (Albuterol 0.042% Inhal Qian (1.25mg/3ml) Ud) 1.25 mg INH Q4 PRN PRN Reason: Shortness of Breath Last Admin: 04/02/17 16:25 Dose: 1.25 mg Aspirin (Ecotrin) 81 mg PO DAILY [facility] Last Admin: 04/03/17 10:09 Dose: 81 mg Calcium Acetate (Phoslo) 1,334 mg PO TIDCC [facility] Cinacalcet (Sensipar) 30 mg PO DAILY [facility] Last Admin: 04/03/17 10:08 Dose: 30 mg Clonidine HCl (Catapres) 0.2 mg PO BID [facility] Last Admin: 04/03/17 10:12 Dose: Not Given Diclofenac Sodium (Voltaren) 75 mg PO BID PRN PRN Reason: ` Escitalopram Oxalate (Lexapro) 10 mg PO HS [facility] Last Admin: 04/02/17 21:28 Dose: 10 mg Ferrous Sulfate (Feosol) 325 mg PO DAILY [facility] Last Admin: 04/03/17 10:09 Dose: 325 mg Cefepime HCl (Maxipime Iv 1 Gm Premix) 1 gm in 50 mls @ 100 mls/hr IVPB Q24H [facility] Last Admin: 11/23/17 17:13 Dose: 100 mls/hr Cefazolin Sodium 250 mg/ (Peritoneal Dialysis Solution) 2,000 mls @ 0 mls/hr IP Q6 [facility] PRN Reason: UD Last Admin: 04/03/17 06:00 Dose: 2,000 mls/hr Lactulose (Enulose) 20 gm PO DAILY [facility] Last Admin: 04/02/17 10:31 Dose: 20 gm Lisinopril (Zestril) 20 mg PO DAILY [facility] Last Admin: 04/03/17 10:13 Dose: Not Given Morphine Sulfate (Morphine) 2 mg IVP Q4 PRN PRN Reason: Pain, moderate (4-7) Last Admin: 04/02/17 22:25 Dose: 2 mg Ondansetron HCl (Zofran Inj) 4 mg IVP Q6H PRN PRN Reason: Nausea/Vomiting Last Admin: 03/27/17 14:23 Dose: 4 mg Pantoprazole Sodium (Protonix Ec Tab) 40 mg PO DAILY [facility] Last Admin: 04/03/17 10:08 Dose: 40 mg Potassium Chloride (Potassium Chloride Oral Soln) 20 meq PO DAILY [facility] Last Admin: 04/03/17 10:14 Dose: Not Given Promethazine HCl/Dextromethorphan (Phenergan Dm Syrup) 10 ml PO Q8 PRN PRN Reason: Cough Last Admin: 04/03/17 06:19 Dose: 10 ml - Labs Labs: 04/03/17 06:58 04/03/17 06:58 - Constitutional Appears: No Acute Distress, Chronically Ill - Head Exam Head Exam: ATRAUMATIC, NORMAL INSPECTION - Eye Exam Eye Exam: EOMI, Normal appearance - Neck Exam Neck Exam: Normal Inspection. absent: Tenderness - Respiratory Exam Respiratory Exam: Rhonchi, NORMAL BREATHING PATTERN - Cardiovascular Exam Cardiovascular Exam: REGULAR RHYTHM, +S1 - GI/Abdominal Exam GI & Abdominal Exam: Soft. absent: Tenderness - Extremities Exam Extremities Exam: Normal Inspection. absent: Tenderness - Neurological Exam Neurological Exam: Alert, CN II-XII Intact - Skin Skin Exam: Dry, Warm Assessment and Plan (1) Peritonitis Status: Acute (2) Hypertensive chronic kidney disease with stage 5 chronic kidney disease or end stage renal disease Status: Acute (3) ESRD (end stage renal disease) Status: Acute (4) Acute peritonitis Status: Acute - Assessment and Plan (Free Text) Plan: Same IP Abs Same PD follow up chemistries continue treatment for bronchitis
[2017-04-03] MEDS: Cefepime IV 1 gm in Dextrose 1 GM/50 ML BAG IVPB SCH (17:53)
--- NOTE | 2017-04-03 17:54 | CP.PCM.PN ---
Subjective - Date & Time of Evaluation Date of Evaluation: 04/03/17 Time of Evaluation: 09:40 - Subjective Subjective: clinically same Objective - Vital Signs/Intake and Output Vital Signs (last 24 hours): Temp Pulse Resp BP Pulse Ox 98.5 F 63 20 95/60 L 94 L 04/03/17 15:17 04/03/17 15:17 04/03/17 15:17 04/03/17 15:17 04/03/17 15:17 Intake and Output: 04/03/17 04/03/17 06:59 18:59 Intake Total 256 Balance 256 - Medications Medications: Current Medications Acetaminophen (Tylenol 325mg Tab) 650 mg PO Q6 PRN PRN Reason: Temperature Last Admin: 03/27/17 17:07 Dose: 650 mg Albuterol Sulfate (Albuterol 0.042% Inhal Qian (1.25mg/3ml) Ud) 1.25 mg INH RQ6 [facility] Last Admin: 04/03/17 14:18 Dose: 1.25 mg Albuterol Sulfate (Albuterol 0.042% Inhal Qian (1.25mg/3ml) Ud) 1.25 mg INH Q4 PRN PRN Reason: Shortness of Breath Last Admin: 04/02/17 16:25 Dose: 1.25 mg Aspirin (Ecotrin) 81 mg PO DAILY [facility] Last Admin: 04/03/17 10:09 Dose: 81 mg Calcium Acetate (Phoslo) 1,334 mg PO TIDCC [facility] Last Admin: 04/03/17 12:55 Dose: 1,334 mg Cinacalcet (Sensipar) 30 mg PO DAILY [facility] Last Admin: 04/03/17 10:08 Dose: 30 mg Clonidine HCl (Catapres) 0.2 mg PO BID [facility] Last Admin: 04/03/17 10:12 Dose: Not Given Diclofenac Sodium (Voltaren) 75 mg PO BID PRN PRN Reason: ` Escitalopram Oxalate (Lexapro) 10 mg PO HS [facility] Last Admin: 04/02/17 21:28 Dose: 10 mg Ferrous Sulfate (Feosol) 325 mg PO DAILY [facility] Last Admin: 04/03/17 10:09 Dose: 325 mg Cefepime HCl (Maxipime Iv 1 Gm Premix) 1 gm in 50 mls @ 100 mls/hr IVPB Q24H [facility] Last Admin: 04/02/17 17:13 Dose: 100 mls/hr Cefazolin Sodium 250 mg/ (Peritoneal Dialysis Solution) 2,000 mls @ 0 mls/hr IP Q6 [facility] PRN Reason: UD Last Admin: 04/03/17 13:21 Dose: 2,000 mls/hr Lactulose (Enulose) 20 gm PO DAILY [facility] Last Admin: 04/02/17 10:31 Dose: 20 gm Lisinopril (Zestril) 20 mg PO DAILY [facility] Last Admin: 04/03/17 10:13 Dose: Not Given Morphine Sulfate (Morphine) 2 mg IVP Q4 PRN PRN Reason: Pain, moderate (4-7) Last Admin: 04/03/17 11:33 Dose: 2 mg Ondansetron HCl (Zofran Inj) 4 mg IVP Q6H PRN PRN Reason: Nausea/Vomiting Last Admin: 03/27/17 14:23 Dose: 4 mg Pantoprazole Sodium (Protonix Ec Tab) 40 mg PO DAILY [facility] Last Admin: 04/03/17 10:08 Dose: 40 mg Potassium Chloride (Potassium Chloride Oral Soln) 20 meq PO DAILY [facility] Last Admin: 04/03/17 10:14 Dose: Not Given Promethazine HCl/Dextromethorphan (Phenergan Dm Syrup) 10 ml PO Q8 PRN PRN Reason: Cough Last Admin: 04/03/17 06:19 Dose: 10 ml - Labs Labs: 04/03/17 06:58 04/03/17 06:58 - Constitutional Appears: Well - Head Exam Head Exam: ATRAUMATIC, NORMAL INSPECTION, NORMOCEPHALIC - Eye Exam Eye Exam: EOMI, Normal appearance, PERRL Pupil Exam: NORMAL ACCOMODATION, PERRL - ENT Exam ENT Exam: Mucous Membranes Moist, Normal Exam - Neck Exam Neck Exam: Full ROM, Normal Inspection. absent: Lymphadenopathy - Respiratory Exam Respiratory Exam: Decreased Breath Sounds - Cardiovascular Exam Cardiovascular Exam: REGULAR RHYTHM, +S1, +S2 - GI/Abdominal Exam GI & Abdominal Exam: Soft, Diminished Bowel Sounds - Rectal Exam Rectal Exam: Deferred Assessment and Plan (1) Abdominal pain Status: Acute (2) ESRD (end stage renal disease) Status: Acute (3) Hypertensive chronic kidney disease with stage 5 chronic kidney disease or end stage renal disease Status: Acute (4) Hypertensive urgency Status: Acute (5) Patient on peritoneal dialysis Status: Acute (6) Peritonitis Status: Acute (7) AMPARO (acute kidney injury) Status: Acute (8) Acute cholecystitis Status: Acute (9) Acute peritonitis Status: Acute (10) Anemia Status: Acute (11) Benign hypertensive kidney disease with end stage renal disease Status: Acute (12) CHF (congestive heart failure) Status: Acute (13) CKD (chronic kidney disease) stage 5, GFR less than 15 ml/min Status: Acute (14) CKD stage 5 secondary to hypertension Status: Acute (15) Chest pain Status: Acute (16) Dependency on pain medication Status: Acute (17) ESRD (end stage renal disease) Status: Acute (18) ESRD (end stage renal disease) Status: Acute (19) Elevated lipase Status: Acute (20) End stage renal disease Status: Acute (21) HTN (hypertension) Status: Acute (22) Hypertension Status: Acute (23) Hypertensive chronic kidney disease with stage 5 chronic kidney disease or end stage renal disease Status: Acute (24) Hypertensive emergency Status: Acute (25) Hypokalemia Status: Acute (26) Hypokalemia Status: Acute (27) Hypokalemia Status: Acute (28) Hypoxia Status: Acute (29) Intractable abdominal pain Status: Acute (30) NSTEMI (non-ST elevated myocardial infarction) Status: Acute (31) Nausea Status: Acute (32) Nausea & vomiting Status: Acute (33) Nephrolithiasis Status: Acute (34) PUD (peptic ulcer disease) Status: Acute (35) Pneumonia Status: Acute (36) Prophylactic measure Status: Acute (37) Prophylactic measure Status: Acute (38) Proteinuria Status: Acute (39) Renal failure Status: Acute (40) Renal insufficiency Status: Acute (41) Uncontrolled hypertension Status: Acute (42) Vomiting Status: Acute - Assessment and Plan (Free Text) Plan: Patient examined. Patient better. No abdominal pain. Peritoneal fluid repeat cell count normal. Continue cefepime and cefazolin. Continue aspirin. Continue antihypertensive medications. Continue supportive care.
--- NOTE | 2017-04-03 19:06 | CP.PCM.PN ---
Subjective - Date & Time of Evaluation Date of Evaluation: 04/03/17 Time of Evaluation: 11:00 - Subjective Subjective: EVENTS NOTED IV RX IN PROGRESS CONT SAME Objective - Vital Signs/Intake and Output Vital Signs (last 24 hours): Temp Pulse Resp BP Pulse Ox 98.5 F 67 20 115/76 94 L 04/03/17 15:17 04/03/17 17:58 04/03/17 15:17 04/03/17 17:58 04/03/17 15:17 - Medications Medications: Current Medications Acetaminophen (Tylenol 325mg Tab) 650 mg PO Q6 PRN PRN Reason: Temperature Last Admin: 03/27/17 17:07 Dose: 650 mg Albuterol Sulfate (Albuterol 0.042% Inhal Qian (1.25mg/3ml) Ud) 1.25 mg INH RQ6 [facility] Last Admin: 04/03/17 14:18 Dose: 1.25 mg Albuterol Sulfate (Albuterol 0.042% Inhal Qian (1.25mg/3ml) Ud) 1.25 mg INH Q4 PRN PRN Reason: Shortness of Breath Last Admin: 04/02/17 16:25 Dose: 1.25 mg Aspirin (Ecotrin) 81 mg PO DAILY [facility] Last Admin: 04/03/17 10:09 Dose: 81 mg Calcium Acetate (Phoslo) 1,334 mg PO TIDCC [facility] Last Admin: 04/03/17 17:54 Dose: 1,334 mg Cinacalcet (Sensipar) 30 mg PO DAILY [facility] Last Admin: 04/03/17 10:08 Dose: 30 mg Clonidine HCl (Catapres) 0.2 mg PO BID [facility] Last Admin: 04/03/17 10:12 Dose: Not Given Diclofenac Sodium (Voltaren) 75 mg PO BID PRN PRN Reason: ` Escitalopram Oxalate (Lexapro) 10 mg PO HS [facility] Last Admin: 04/02/17 21:28 Dose: 10 mg Ferrous Sulfate (Feosol) 325 mg PO DAILY [facility] Last Admin: 04/03/17 10:09 Dose: 325 mg Cefepime HCl (Maxipime Iv 1 Gm Premix) 1 gm in 50 mls @ 100 mls/hr IVPB Q24H [facility] Last Admin: 04/03/17 17:53 Dose: 100 mls/hr Cefazolin Sodium 250 mg/ (Peritoneal Dialysis Solution) 2,000 mls @ 0 mls/hr IP Q6 [facility] PRN Reason: UD Last Admin: 04/03/17 13:21 Dose: 2,000 mls/hr Lactulose (Enulose) 20 gm PO DAILY [facility] Last Admin: 04/02/17 10:31 Dose: 20 gm Lisinopril (Zestril) 20 mg PO DAILY [facility] Last Admin: 04/03/17 10:13 Dose: Not Given Morphine Sulfate (Morphine) 2 mg IVP Q4 PRN PRN Reason: Pain, moderate (4-7) Last Admin: 04/03/17 18:06 Dose: 2 mg Ondansetron HCl (Zofran Inj) 4 mg IVP Q6H PRN PRN Reason: Nausea/Vomiting Last Admin: 03/27/17 14:23 Dose: 4 mg Pantoprazole Sodium (Protonix Ec Tab) 40 mg PO DAILY [facility] Last Admin: 04/03/17 10:08 Dose: 40 mg Potassium Chloride (Potassium Chloride Oral Soln) 20 meq PO DAILY [facility] Last Admin: 04/03/17 10:14 Dose: Not Given Promethazine HCl/Dextromethorphan (Phenergan Dm Syrup) 10 ml PO Q8 PRN PRN Reason: Cough Last Admin: 04/03/17 06:19 Dose: 10 ml - Labs Labs: 04/03/17 06:58 04/03/17 06:58 - Constitutional Appears: Non-toxic, Chronically Ill - Head Exam Head Exam: NORMOCEPHALIC - Eye Exam Eye Exam: PERRL - ENT Exam ENT Exam: Mucous Membranes Dry - Neck Exam Neck Exam: absent: Lymphadenopathy - Respiratory Exam Respiratory Exam: Chest Wall Tenderness - Cardiovascular Exam Cardiovascular Exam: REGULAR RHYTHM - GI/Abdominal Exam GI & Abdominal Exam: Distended, Soft - Rectal Exam Rectal Exam: Deferred - Exam Exam: NORMAL INSPECTION Assessment and Plan (1) Abdominal pain Status: Acute (2) ESRD (end stage renal disease) Status: Acute (3) Patient on peritoneal dialysis Status: Acute (4) Peritonitis Status: Acute
[2017-04-04] MEDS: CEFAZOLIN IP SCH ×4 (00:38→18:02)
[2017-04-04] MEDS: DIANEAL PD IP SCH ×4 (00:38→18:02)
[2017-04-04] MEDS: Albuterol 0.042% Inhal Sol (1.25 mg/3 mL) UD INH SCH ×4 (01:11→19:20)
[2017-04-04 08:44] LABS: ALB/GLOB RATIO 1.4 (1.0-2.1); BILIRUBIN,TOTAL 0.5 mg/dL (0.2-1.3); CALCIUM 8.1 mg/dl (8.6-10.4); POTASSIUM 3.3 mmol/L (3.6-5.2); TOTAL PROTEIN 6.4 g/dL (6.3-8.3)
[2017-04-04] MEDS: Potassium Chloride 20 mEq/15 ml LIQ UD PO SCH (09:34)
[2017-04-04] MEDS: Pantoprazole 40 mg EC Tab PO SCH (09:35)
[2017-04-04] MEDS: Diclofenac Sodium Delayed Release 75 mg EC Tab PO PRN (09:36)
--- NOTE | 2017-04-04 10:16 | CP.PCM.PN ---
Subjective - Date & Time of Evaluation Date of Evaluation: 04/04/17 Time of Evaluation: 10:14 - Subjective Subjective: in bed, comfortable no abdominal pain no nausea or vomiting PD ongoing without any issues afebrile ROS- as per HPI, other than that 10 point ROS negative Objective - Vital Signs/Intake and Output Vital Signs (last 24 hours): Temp Pulse Resp BP Pulse Ox 98.3 F 54 L 20 109/63 98 04/04/17 08:31 04/04/17 08:31 04/04/17 08:31 04/04/17 08:31 04/04/17 08:31 Intake and Output: 04/04/17 04/04/17 06:59 18:59 Intake Total 290 Balance 290 - Medications Medications: Current Medications Acetaminophen (Tylenol 325mg Tab) 650 mg PO Q6 PRN PRN Reason: Temperature Last Admin: 03/27/17 17:07 Dose: 650 mg Albuterol Sulfate (Albuterol 0.042% Inhal Qian (1.25mg/3ml) Ud) 1.25 mg INH RQ6 [facility] Last Admin: 04/04/17 08:33 Dose: 1.25 mg Albuterol Sulfate (Albuterol 0.042% Inhal Qian (1.25mg/3ml) Ud) 1.25 mg INH Q4 PRN PRN Reason: Shortness of Breath Last Admin: 04/02/17 16:25 Dose: 1.25 mg Aspirin (Ecotrin) 81 mg PO DAILY [facility] Last Admin: 04/04/17 09:35 Dose: 81 mg Calcium Acetate (Phoslo) 1,334 mg PO TIDCC [facility] Last Admin: 04/04/17 08:13 Dose: 1,334 mg Cinacalcet (Sensipar) 30 mg PO DAILY [facility] Last Admin: 04/04/17 09:35 Dose: 30 mg Clonidine HCl (Catapres) 0.2 mg PO BID [facility] Last Admin: 04/04/17 09:36 Dose: 0.2 mg Diclofenac Sodium (Voltaren) 75 mg PO BID PRN PRN Reason: ` Last Admin: 04/04/17 09:36 Dose: 75 mg Escitalopram Oxalate (Lexapro) 10 mg PO HS [facility] Last Admin: 04/03/17 21:47 Dose: 10 mg Ferrous Sulfate (Feosol) 325 mg PO DAILY [facility] Last Admin: 04/04/17 09:35 Dose: 325 mg Cefepime HCl (Maxipime Iv 1 Gm Premix) 1 gm in 50 mls @ 100 mls/hr IVPB Q24H [facility] Last Admin: 04/03/17 17:53 Dose: 100 mls/hr Cefazolin Sodium 250 mg/ (Peritoneal Dialysis Solution) 2,000 mls @ 0 mls/hr IP Q6 [facility] PRN Reason: UD Last Admin: 04/04/17 05:59 Dose: 2,000 mls/hr Lactulose (Enulose) 20 gm PO DAILY [facility] Last Admin: 04/04/17 09:34 Dose: 20 gm Lisinopril (Zestril) 20 mg PO DAILY [facility] Last Admin: 04/04/17 09:35 Dose: 20 mg Morphine Sulfate (Morphine) 2 mg IVP Q4 PRN PRN Reason: Pain, moderate (4-7) Last Admin: 04/04/17 09:39 Dose: 2 mg Ondansetron HCl (Zofran Inj) 4 mg IVP Q6H PRN PRN Reason: Nausea/Vomiting Last Admin: 03/27/17 14:23 Dose: 4 mg Pantoprazole Sodium (Protonix Ec Tab) 40 mg PO DAILY [facility] Last Admin: 04/04/17 09:35 Dose: 40 mg Potassium Chloride (Potassium Chloride Oral Soln) 20 meq PO DAILY [facility] Last Admin: 04/04/17 09:34 Dose: 20 meq Promethazine HCl/Dextromethorphan (Phenergan Dm Syrup) 10 ml PO Q8 PRN PRN Reason: Cough Last Admin: 04/03/17 21:48 Dose: 10 ml - Labs Labs: 04/03/17 06:58 04/04/17 07:25 - Constitutional Appears: Well, Non-toxic - Head Exam Head Exam: ATRAUMATIC, NORMOCEPHALIC - Eye Exam Eye Exam: EOMI, PERRL - ENT Exam ENT Exam: Mucous Membranes Moist - Neck Exam Neck Exam: Full ROM. absent: Tenderness - Respiratory Exam Respiratory Exam: Clear to Ausculation Bilateral. absent: Rhonchi, Wheezes - Cardiovascular Exam Cardiovascular Exam: REGULAR RHYTHM, +S1, +S2 - GI/Abdominal Exam GI & Abdominal Exam: Soft. absent: Distended, Tenderness - Extremities Exam Extremities Exam: Full ROM. absent: Pedal Edema - Neurological Exam Neurological Exam: Alert, Awake, Oriented x3 Neuro motor strength exam: Right Upper Extremity: 0 - Psychiatric Exam Psychiatric exam: Normal Affect, Normal Mood - Skin Skin Exam: Normal Color, Warm Assessment and Plan (1) ESRD (end stage renal disease) Status: Acute (2) Hypertensive chronic kidney disease with stage 5 chronic kidney disease or end stage renal disease Status: Acute (3) Patient on peritoneal dialysis Status: Acute (4) Peritonitis Status: Acute (5) Hypokalemia Status: Acute - Assessment and Plan (Free Text) Plan: maintain niko ePD orders continue ABx for peritonitis replete potassium- on po supplements
[2017-04-04] MEDS ORDERED: Potassium Chloride 20 mEq ER Tab PO ONE (13:00)
--- NOTE | 2017-04-04 14:31 | CP.PCM.PN ---
Subjective - Date & Time of Evaluation Date of Evaluation: 04/04/17 Time of Evaluation: 09:20 - Subjective Subjective: clinically same Objective - Vital Signs/Intake and Output Vital Signs (last 24 hours): Temp Pulse Resp BP Pulse Ox 98.3 F 54 L 20 110/62 98 04/04/17 08:31 04/04/17 08:31 04/04/17 08:31 04/04/17 12:51 04/04/17 08:31 Intake and Output: 04/04/17 04/04/17 06:59 18:59 Intake Total 290 Balance 290 - Medications Medications: Current Medications Acetaminophen (Tylenol 325mg Tab) 650 mg PO Q6 PRN PRN Reason: Temperature Last Admin: 03/27/17 17:07 Dose: 650 mg Albuterol Sulfate (Albuterol 0.042% Inhal Qian (1.25mg/3ml) Ud) 1.25 mg INH RQ6 [facility] Last Admin: 04/04/17 13:31 Dose: Not Given Albuterol Sulfate (Albuterol 0.042% Inhal Qian (1.25mg/3ml) Ud) 1.25 mg INH Q4 PRN PRN Reason: Shortness of Breath Last Admin: 04/02/17 16:25 Dose: 1.25 mg Aspirin (Ecotrin) 81 mg PO DAILY [facility] Last Admin: 04/04/17 09:35 Dose: 81 mg Calcium Acetate (Phoslo) 1,334 mg PO TIDCC [facility] Last Admin: 04/04/17 12:09 Dose: 1,334 mg Cinacalcet (Sensipar) 30 mg PO DAILY [facility] Last Admin: 04/04/17 09:35 Dose: 30 mg Clonidine HCl (Catapres) 0.2 mg PO BID [facility] Last Admin: 04/04/17 09:36 Dose: 0.2 mg Diclofenac Sodium (Voltaren) 75 mg PO BID PRN PRN Reason: ` Last Admin: 04/04/17 09:36 Dose: 75 mg Escitalopram Oxalate (Lexapro) 10 mg PO HS [facility] Last Admin: 04/03/17 21:47 Dose: 10 mg Ferrous Sulfate (Feosol) 325 mg PO DAILY [facility] Last Admin: 04/04/17 09:35 Dose: 325 mg Cefepime HCl (Maxipime Iv 1 Gm Premix) 1 gm in 50 mls @ 100 mls/hr IVPB Q24H [facility] Last Admin: 04/03/17 17:53 Dose: 100 mls/hr Cefazolin Sodium 250 mg/ (Peritoneal Dialysis Solution) 2,000 mls @ 0 mls/hr IP Q6 [facility] PRN Reason: UD Last Admin: 04/04/17 12:00 Dose: 2,000 mls/hr Lactulose (Enulose) 20 gm PO DAILY [facility] Last Admin: 04/04/17 09:34 Dose: 20 gm Lisinopril (Zestril) 20 mg PO DAILY [facility] Last Admin: 04/04/17 09:35 Dose: 20 mg Morphine Sulfate (Morphine) 2 mg IVP Q4 PRN PRN Reason: Pain, moderate (4-7) Last Admin: 04/04/17 09:39 Dose: 2 mg Ondansetron HCl (Zofran Inj) 4 mg IVP Q6H PRN PRN Reason: Nausea/Vomiting Last Admin: 03/27/17 14:23 Dose: 4 mg Pantoprazole Sodium (Protonix Ec Tab) 40 mg PO DAILY [facility] Last Admin: 04/04/17 09:35 Dose: 40 mg Potassium Chloride (Potassium Chloride Oral Soln) 20 meq PO DAILY [facility] Last Admin: 04/04/17 09:34 Dose: 20 meq Promethazine HCl/Dextromethorphan (Phenergan Dm Syrup) 10 ml PO Q8 PRN PRN Reason: Cough Last Admin: 04/03/17 21:48 Dose: 10 ml - Labs Labs: 04/03/17 06:58 04/04/17 07:25 - Constitutional Appears: Well - Head Exam Head Exam: ATRAUMATIC, NORMAL INSPECTION, NORMOCEPHALIC - Eye Exam Eye Exam: EOMI, Normal appearance, PERRL Pupil Exam: NORMAL ACCOMODATION, PERRL - ENT Exam ENT Exam: Mucous Membranes Moist, Normal Exam - Neck Exam Neck Exam: Full ROM, Normal Inspection. absent: Lymphadenopathy - Respiratory Exam Respiratory Exam: Decreased Breath Sounds - Cardiovascular Exam Cardiovascular Exam: REGULAR RHYTHM, +S1, +S2 - GI/Abdominal Exam GI & Abdominal Exam: Soft, Diminished Bowel Sounds - Rectal Exam Rectal Exam: Deferred Assessment and Plan (1) Abdominal pain Status: Acute (2) ESRD (end stage renal disease) Status: Acute (3) Hypertensive chronic kidney disease with stage 5 chronic kidney disease or end stage renal disease Status: Acute (4) Hypertensive urgency Status: Acute (5) Patient on peritoneal dialysis Status: Acute (6) Peritonitis Status: Acute (7) AMPARO (acute kidney injury) Status: Acute (8) Acute cholecystitis Status: Acute (9) Acute peritonitis Status: Acute (10) Anemia Status: Acute (11) Benign hypertensive kidney disease with end stage renal disease Status: Acute (12) CHF (congestive heart failure) Status: Acute (13) CKD (chronic kidney disease) stage 5, GFR less than 15 ml/min Status: Acute (14) CKD stage 5 secondary to hypertension Status: Acute (15) Chest pain Status: Acute (16) Dependency on pain medication Status: Acute (17) ESRD (end stage renal disease) Status: Acute (18) ESRD (end stage renal disease) Status: Acute (19) Elevated lipase Status: Acute (20) End stage renal disease Status: Acute (21) HTN (hypertension) Status: Acute (22) Hypertension Status: Acute (23) Hypertensive chronic kidney disease with stage 5 chronic kidney disease or end stage renal disease Status: Acute (24) Hypertensive emergency Status: Acute (25) Hypokalemia Status: Acute (26) Hypokalemia Status: Acute (27) Hypokalemia Status: Acute (28) Hypoxia Status: Acute (29) Intractable abdominal pain Status: Acute (30) NSTEMI (non-ST elevated myocardial infarction) Status: Acute (31) Nausea Status: Acute (32) Nausea & vomiting Status: Acute (33) Nephrolithiasis Status: Acute (34) PUD (peptic ulcer disease) Status: Acute (35) Pneumonia Status: Acute (36) Prophylactic measure Status: Acute (37) Prophylactic measure Status: Acute (38) Proteinuria Status: Acute (39) Renal failure Status: Acute (40) Renal insufficiency Status: Acute (41) Uncontrolled hypertension Status: Acute (42) Vomiting Status: Acute - Assessment and Plan (Free Text) Plan: Patient examined. Patient better. No abdominal pain. Continue cefepime and cefazolin. Continue aspirin. Continue antihypertensive medications. Continue supportive care.
[2017-04-04] MEDS: Cefepime IV 1 gm in Dextrose 1 GM/50 ML BAG IVPB SCH (18:17)
[2017-04-05] MEDS: DIANEAL PD IP SCH ×5 (00:02→23:40)
[2017-04-05] MEDS: CEFAZOLIN IP SCH ×5 (00:02→23:40)
[2017-04-05] MEDS: Albuterol 0.042% Inhal Sol (1.25 mg/3 mL) UD INH SCH ×3 (01:30→19:52)
[2017-04-05] MEDS: Potassium Chloride 20 mEq/15 ml LIQ UD PO SCH (09:08)
[2017-04-05] MEDS: Pantoprazole 40 mg EC Tab PO SCH (09:08)
--- NOTE | 2017-04-05 16:06 | CP.PCM.PN ---
Subjective - Date & Time of Evaluation Date of Evaluation: 04/05/17 Time of Evaluation: 08:00 - Subjective Subjective: seen on rounds iv rx renewed denies fever less abd pain CT findings noted Objective - Vital Signs/Intake and Output Vital Signs (last 24 hours): Temp Pulse Resp BP Pulse Ox 98 F 82 20 127/87 95 04/05/17 12:41 04/05/17 12:00 04/05/17 12:41 04/05/17 12:41 04/05/17 09:14 Intake and Output: 04/05/17 04/05/17 06:59 18:59 Intake Total 530 Balance 530 - Medications Medications: Current Medications Acetaminophen (Tylenol 325mg Tab) 650 mg PO Q6 PRN PRN Reason: Temperature Last Admin: 03/27/17 17:07 Dose: 650 mg Albuterol Sulfate (Albuterol 0.042% Inhal Qian (1.25mg/3ml) Ud) 1.25 mg INH RQ6 [facility] Last Admin: 04/05/17 07:40 Dose: Not Given Albuterol Sulfate (Albuterol 0.042% Inhal Qian (1.25mg/3ml) Ud) 1.25 mg INH Q4 PRN PRN Reason: Shortness of Breath Last Admin: 04/02/17 16:25 Dose: 1.25 mg Aspirin (Ecotrin) 81 mg PO DAILY [facility] Last Admin: 04/05/17 09:08 Dose: 81 mg Calcium Acetate (Phoslo) 1,334 mg PO TIDCC [facility] Last Admin: 04/05/17 13:23 Dose: 1,334 mg Cinacalcet (Sensipar) 30 mg PO DAILY [facility] Last Admin: 04/05/17 09:09 Dose: 30 mg Diclofenac Sodium (Voltaren) 75 mg PO BID PRN PRN Reason: ` Last Admin: 04/04/17 09:36 Dose: 75 mg Escitalopram Oxalate (Lexapro) 10 mg PO HS [facility] Last Admin: 04/04/17 21:21 Dose: 10 mg Ferrous Sulfate (Feosol) 325 mg PO DAILY [facility] Last Admin: 04/05/17 09:08 Dose: 325 mg Cefepime HCl (Maxipime Iv 1 Gm Premix) 1 gm in 50 mls @ 100 mls/hr IVPB Q24H [facility] Last Admin: 11/25/17 18:17 Dose: 100 mls/hr Cefazolin Sodium 250 mg/ (Peritoneal Dialysis Solution) 2,000 mls @ 0 mls/hr IP Q6 [facility] PRN Reason: UD Last Admin: 04/05/17 12:02 Dose: 2,000 mls/hr Lactulose (Enulose) 20 gm PO DAILY [facility] Last Admin: 04/05/17 09:09 Dose: 20 gm Morphine Sulfate (Morphine) 2 mg IVP Q6 PRN PRN Reason: Pain, moderate (4-7) Ondansetron HCl (Zofran Inj) 4 mg IVP Q6H PRN PRN Reason: Nausea/Vomiting Last Admin: 04/05/17 13:39 Dose: 4 mg Pantoprazole Sodium (Protonix Ec Tab) 40 mg PO DAILY [facility] Last Admin: 04/05/17 09:08 Dose: 40 mg Potassium Chloride (Potassium Chloride Oral Soln) 20 meq PO DAILY [facility] Last Admin: 04/05/17 09:08 Dose: 20 meq Promethazine HCl/Dextromethorphan (Phenergan Dm Syrup) 10 ml PO Q8 PRN PRN Reason: Cough Last Admin: 04/03/17 21:48 Dose: 10 ml - Labs Labs: 04/03/17 06:58 04/04/17 07:25 - Constitutional Appears: Non-toxic, Chronically Ill - Head Exam Head Exam: NORMOCEPHALIC - Eye Exam Eye Exam: PERRL. absent: Scleral icterus - ENT Exam ENT Exam: Mucous Membranes Dry - Neck Exam Neck Exam: absent: Lymphadenopathy - Respiratory Exam Respiratory Exam: Decreased Breath Sounds - Cardiovascular Exam Cardiovascular Exam: REGULAR RHYTHM - GI/Abdominal Exam GI & Abdominal Exam: Distended, Soft - Rectal Exam Rectal Exam: Deferred - Exam Exam: NORMAL INSPECTION - Extremities Exam Extremities Exam: absent: Pedal Edema - Back Exam Back Exam: absent: CVA tenderness (L), CVA tenderness (R) - Neurological Exam Neurological Exam: Alert, Awake, Oriented x3 Neuro motor strength exam: Left Upper Extremity: 4, Right Upper Extremity: 4, Left Lower Extremity: 4, Right Lower Extremity: 4 - Psychiatric Exam Psychiatric exam: Normal Mood - Skin Skin Exam: Dry Assessment and Plan (1) Abdominal pain Status: Acute (2) ESRD (end stage renal disease) Status: Acute (3) Patient on peritoneal dialysis Status: Acute (4) Peritonitis Status: Acute
[2017-04-05] MEDS: Potassium Chloride 20 mEq ER Tab PO SCH (16:42)
--- NOTE | 2017-04-05 16:55 | CP.PCM.PN ---
Subjective - Date & Time of Evaluation Date of Evaluation: 04/05/17 Time of Evaluation: 09:40 - Subjective Subjective: clinically same Objective - Vital Signs/Intake and Output Vital Signs (last 24 hours): Temp Pulse Resp BP Pulse Ox 98 F 60 20 127/87 95 04/05/17 12:41 04/05/17 12:30 04/05/17 12:41 04/05/17 12:41 04/05/17 09:14 Intake and Output: 04/05/17 04/05/17 06:59 18:59 Intake Total 530 480 Balance 530 480 - Medications Medications: Current Medications Acetaminophen (Tylenol 325mg Tab) 650 mg PO Q6 PRN PRN Reason: Temperature Last Admin: 03/27/17 17:07 Dose: 650 mg Albuterol Sulfate (Albuterol 0.042% Inhal Qian (1.25mg/3ml) Ud) 1.25 mg INH RQ6 [facility] Last Admin: 04/05/17 07:40 Dose: Not Given Albuterol Sulfate (Albuterol 0.042% Inhal Qian (1.25mg/3ml) Ud) 1.25 mg INH Q4 PRN PRN Reason: Shortness of Breath Last Admin: 04/02/17 16:25 Dose: 1.25 mg Aspirin (Ecotrin) 81 mg PO DAILY [facility] Last Admin: 04/05/17 09:08 Dose: 81 mg Calcium Acetate (Phoslo) 1,334 mg PO TIDCC [facility] Last Admin: 04/05/17 16:42 Dose: 1,334 mg Cinacalcet (Sensipar) 30 mg PO DAILY [facility] Last Admin: 04/05/17 09:09 Dose: 30 mg Diclofenac Sodium (Voltaren) 75 mg PO BID PRN PRN Reason: ` Last Admin: 04/04/17 09:36 Dose: 75 mg Escitalopram Oxalate (Lexapro) 10 mg PO HS [facility] Last Admin: 04/04/17 21:21 Dose: 10 mg Ferrous Sulfate (Feosol) 325 mg PO DAILY [facility] Last Admin: 04/05/17 09:08 Dose: 325 mg Cefepime HCl (Maxipime Iv 1 Gm Premix) 1 gm in 50 mls @ 100 mls/hr IVPB Q24H [facility] Last Admin: 04/04/17 18:17 Dose: 100 mls/hr Cefazolin Sodium 250 mg/ (Peritoneal Dialysis Solution) 2,000 mls @ 0 mls/hr IP Q6 [facility] PRN Reason: UD Last Admin: 04/05/17 12:02 Dose: 2,000 mls/hr Lactulose (Enulose) 20 gm PO DAILY [facility] Last Admin: 04/05/17 09:09 Dose: 20 gm Morphine Sulfate (Morphine) 2 mg IVP Q6 PRN PRN Reason: Pain, moderate (4-7) Last Admin: 04/05/17 16:42 Dose: 2 mg Ondansetron HCl (Zofran Inj) 4 mg IVP Q6H PRN PRN Reason: Nausea/Vomiting Last Admin: 04/05/17 13:39 Dose: 4 mg Pantoprazole Sodium (Protonix Ec Tab) 40 mg PO DAILY [facility] Last Admin: 04/05/17 09:08 Dose: 40 mg Potassium Chloride (Potassium Chloride Oral Soln) 20 meq PO DAILY [facility] Last Admin: 04/05/17 09:08 Dose: 20 meq Potassium Chloride (K-Dur 20 Meq Er Tab) 20 meq PO DAILY [facility] Last Admin: 04/05/17 16:42 Dose: 20 meq Promethazine HCl/Dextromethorphan (Phenergan Dm Syrup) 10 ml PO Q8 PRN PRN Reason: Cough Last Admin: 04/03/17 21:48 Dose: 10 ml - Labs Labs: 04/03/17 06:58 04/04/17 07:25 - Constitutional Appears: Well - Head Exam Head Exam: ATRAUMATIC, NORMAL INSPECTION, NORMOCEPHALIC - Eye Exam Eye Exam: EOMI, Normal appearance, PERRL Pupil Exam: NORMAL ACCOMODATION, PERRL - ENT Exam ENT Exam: Mucous Membranes Moist, Normal Exam - Neck Exam Neck Exam: Full ROM, Normal Inspection. absent: Lymphadenopathy - Respiratory Exam Respiratory Exam: Clear to Ausculation Bilateral, NORMAL BREATHING PATTERN - Cardiovascular Exam Cardiovascular Exam: REGULAR RHYTHM, +S1, +S2. absent: Murmur - GI/Abdominal Exam GI & Abdominal Exam: Soft, Normal Bowel Sounds. absent: Tenderness - Rectal Exam Rectal Exam: Deferred - Extremities Exam Extremities Exam: Full ROM, Normal Capillary Refill, Normal Inspection. absent : Joint Swelling, Pedal Edema Assessment and Plan (1) Abdominal pain Status: Acute (2) ESRD (end stage renal disease) Status: Acute (3) Hypertensive chronic kidney disease with stage 5 chronic kidney disease or end stage renal disease Status: Acute (4) Hypertensive urgency Status: Acute (5) Patient on peritoneal dialysis Status: Acute (6) Peritonitis Status: Acute (7) AMPARO (acute kidney injury) Status: Acute (8) Acute cholecystitis Status: Acute (9) Acute peritonitis Status: Acute (10) Anemia Status: Acute (11) Benign hypertensive kidney disease with end stage renal disease Status: Acute (12) CHF (congestive heart failure) Status: Acute (13) CKD (chronic kidney disease) stage 5, GFR less than 15 ml/min Status: Acute (14) CKD stage 5 secondary to hypertension Status: Acute (15) Chest pain Status: Acute (16) Dependency on pain medication Status: Acute (17) ESRD (end stage renal disease) Status: Acute (18) ESRD (end stage renal disease) Status: Acute (19) Elevated lipase Status: Acute (20) End stage renal disease Status: Acute (21) HTN (hypertension) Status: Acute (22) Hypertension Status: Acute (23) Hypertensive chronic kidney disease with stage 5 chronic kidney disease or end stage renal disease Status: Acute (24) Hypertensive emergency Status: Acute (25) Hypokalemia Status: Acute (26) Hypokalemia Status: Acute (27) Hypokalemia Status: Acute (28) Hypoxia Status: Acute (29) Intractable abdominal pain Status: Acute (30) NSTEMI (non-ST elevated myocardial infarction) Status: Acute (31) Nausea Status: Acute (32) Nausea & vomiting Status: Acute (33) Nephrolithiasis Status: Acute (34) PUD (peptic ulcer disease) Status: Acute (35) Pneumonia Status: Acute (36) Prophylactic measure Status: Acute (37) Prophylactic measure Status: Acute (38) Proteinuria Status: Acute (39) Renal failure Status: Acute (40) Renal insufficiency Status: Acute (41) Uncontrolled hypertension Status: Acute (42) Vomiting Status: Acute - Assessment and Plan (Free Text) Plan: Patient examined. Patient better. No abdominal pain. CT findings noted. Continue cefepime and cefazolin. Continue aspirin. Continue antihypertensive medications. Continue supportive care.
[2017-04-05] MEDS: Cefepime IV 1 gm in Dextrose 1 GM/50 ML BAG IVPB SCH (18:55)
[2017-04-06] MEDS: Albuterol 0.042% Inhal Sol (1.25 mg/3 mL) UD INH SCH ×3 (01:11→13:05)
[2017-04-06] MEDS: DIANEAL PD IP SCH ×2 (05:44→12:14)
[2017-04-06] MEDS: CEFAZOLIN IP SCH ×2 (05:44→12:14)
[2017-04-06 09:04] VITALS: BP 128/81; PULSE 70; RESP 20; TEMP 98.4; O2SAT 97
[2017-04-06] MEDS: Pantoprazole 40 mg EC Tab PO SCH (10:13)
[2017-04-06] MEDS: Potassium Chloride 20 mEq/15 ml LIQ UD PO SCH (10:13)
[2017-04-06] MEDS: Potassium Chloride 20 mEq ER Tab PO SCH (10:14)
[2017-04-06 12:25] LABS: BASO # 0.1 K/uL (0.0-0.2); BASO % 0.7 % (0.0-2.0); EOS # 0.4 K/uL (0.0-0.7); EOS % 2.9 % (0.0-4.0); HEMATOCRIT 42.5 % (34.0-47.0); LYMPH # 1.7 K/uL (1.0-4.3); LYMPH % 11.9 % (20.0-40.0); MEAN CELL VOLUME 87.5 fL (81.0-99.0); MEAN CORPUSCULAR HEMOGLOBIN 29.9 pg (27.0-31.0); MEAN CORPUSCULAR HGB CONC 34.1 g/dL (33.0-37.0); MEAN PLATELET VOLUME 8.6 fL (7.2-11.7); NRBC % 0.1 % (0.0-2.0); RED CELL DISTRIBUTION WIDTH 14.1 % (11.5-14.5)
[2017-04-06 12:30] LABS: WHITE BLOOD COUNT 14.3 K/uL (4.8-10.8)
--- NOTE | 2017-04-06 12:38 | CP.PCM.PN ---
Subjective - Date & Time of Evaluation Date of Evaluation: 04/06/17 Time of Evaluation: 12:36 - Subjective Subjective: Alert; has been afebrile PD fluid clear; no more abdominal pains; no other complaint perotonitis IP ABs treatment can be completed as outpatient Objective - Vital Signs/Intake and Output Vital Signs (last 24 hours): Temp Pulse Resp BP Pulse Ox 98.4 F 70 20 128/81 97 04/06/17 07:40 04/06/17 07:40 04/06/17 07:40 04/06/17 07:40 04/06/17 07:40 Intake and Output: 04/06/17 04/06/17 06:59 18:59 Intake Total 240 Balance 240 - Medications Medications: Current Medications Acetaminophen (Tylenol 325mg Tab) 650 mg PO Q6 PRN PRN Reason: Temperature Last Admin: 03/27/17 17:07 Dose: 650 mg Albuterol Sulfate (Albuterol 0.042% Inhal Qian (1.25mg/3ml) Ud) 1.25 mg INH RQ6 [facility] Last Admin: 04/06/17 07:20 Dose: Not Given Albuterol Sulfate (Albuterol 0.042% Inhal Qian (1.25mg/3ml) Ud) 1.25 mg INH Q4 PRN PRN Reason: Shortness of Breath Last Admin: 04/02/17 16:25 Dose: 1.25 mg Aspirin (Ecotrin) 81 mg PO DAILY [facility] Last Admin: 04/06/17 10:14 Dose: 81 mg Calcium Acetate (Phoslo) 1,334 mg PO TIDCC [facility] Last Admin: 04/06/17 08:35 Dose: 1,334 mg Cinacalcet (Sensipar) 30 mg PO DAILY [facility] Last Admin: 04/06/17 10:13 Dose: 30 mg Diclofenac Sodium (Voltaren) 75 mg PO BID PRN PRN Reason: ` Last Admin: 04/04/17 09:36 Dose: 75 mg Escitalopram Oxalate (Lexapro) 10 mg PO HS [facility] Last Admin: 04/05/17 21:41 Dose: 10 mg Ferrous Sulfate (Feosol) 325 mg PO DAILY [facility] Last Admin: 04/06/17 10:14 Dose: 325 mg Cefepime HCl (Maxipime Iv 1 Gm Premix) 1 gm in 50 mls @ 100 mls/hr IVPB Q24H [facility] Last Admin: 04/05/17 18:55 Dose: 100 mls/hr Cefazolin Sodium 250 mg/ (Peritoneal Dialysis Solution) 2,000 mls @ 0 mls/hr IP Q6 [facility] PRN Reason: UD Last Admin: 04/06/17 12:14 Dose: 250 mls/hr Lactulose (Enulose) 20 gm PO DAILY [facility] Last Admin: 04/06/17 10:14 Dose: 20 gm Morphine Sulfate (Morphine) 2 mg IVP Q6 PRN PRN Reason: Pain, moderate (4-7) Last Admin: 04/06/17 06:18 Dose: 2 mg Ondansetron HCl (Zofran Inj) 4 mg IVP Q6H PRN PRN Reason: Nausea/Vomiting Last Admin: 04/06/17 11:09 Dose: 4 mg Pantoprazole Sodium (Protonix Ec Tab) 40 mg PO DAILY [facility] Last Admin: 04/06/17 10:13 Dose: 40 mg Potassium Chloride (Potassium Chloride Oral Soln) 20 meq PO DAILY [facility] Last Admin: 04/06/17 10:13 Dose: 20 meq Potassium Chloride (K-Dur 20 Meq Er Tab) 20 meq PO DAILY [facility] Last Admin: 04/06/17 10:14 Dose: 20 meq Promethazine HCl/Dextromethorphan (Phenergan Dm Syrup) 10 ml PO Q8 PRN PRN Reason: Cough Last Admin: 04/03/17 21:48 Dose: 10 ml - Labs Labs: 04/06/17 11:49 04/04/17 07:25 - Constitutional Appears: No Acute Distress, Chronically Ill - Head Exam Head Exam: ATRAUMATIC, NORMAL INSPECTION - Eye Exam Eye Exam: EOMI, Normal appearance - Neck Exam Neck Exam: Normal Inspection. absent: Tenderness - Respiratory Exam Respiratory Exam: Clear to Ausculation Bilateral, NORMAL BREATHING PATTERN - Cardiovascular Exam Cardiovascular Exam: REGULAR RHYTHM, +S1 - GI/Abdominal Exam GI & Abdominal Exam: Soft. absent: Tenderness - Extremities Exam Extremities Exam: Normal Inspection. absent: Tenderness - Neurological Exam Neurological Exam: Alert, CN II-XII Intact - Skin Skin Exam: Dry, Warm Assessment and Plan (1) Peritonitis Status: Acute (2) Hypertensive chronic kidney disease with stage 5 chronic kidney disease or end stage renal disease Status: Acute (3) ESRD (end stage renal disease) Status: Acute (4) Acute peritonitis Status: Acute - Assessment and Plan (Free Text) Plan: likely discharge soon finish IP ABs as outpatient
[2017-04-06 13:19] LABS: ALB/GLOB RATIO 1.3 (1.0-2.1); BILIRUBIN,TOTAL 0.8 mg/dL (0.2-1.3); CALCIUM 9.2 mg/dl (8.6-10.4); MAGNESIUM 2.1 mg/dL (1.6-2.3); PHOSPHOROUS 3.5 mg/dL (2.5-4.5); TOTAL PROTEIN 7.6 g/dL (6.3-8.3)
--- NOTE | 2017-04-06 14:09 | CP.PCM.PN ---
<William Sumner - Last Filed: 04/06/17 14:06> Subjective - Date & Time of Evaluation Date of Evaluation: 04/06/17 Time of Evaluation: 07:45 - Subjective Subjective: PGY2 Resident - Medicine Progress Note Patient seen and examined at bedside. No acute distress. No overnight events. Her abdominal pain has resolved. She is tolerating daily peritoneal dialysis. She states she is ready to go home. See plan below. Denies fever, chills, nausea /vomiting, diarrhea/constipation, dysuria, urinary frequency, change in urinary stream, or any additional acute complaints. Patient is stable for discharge per Dr. Catherine Orr. Patient should resume all medications as outlined in this document. Additionally, patient should take the new medications listed below (scripts provided). 1. Per Dr. Jordan, please complete 2 weeks of peritoneal antibiotics to be administered as an out patient. The phone # for the facility is [phone]. The case management team has setup your appointment. See antibiotic dosing below. 2. Please make an appointment and follow up with your Primary Doctor Dr. Denis Orr within one week of discharge. Patient should return to ED immediately if symptoms return or worsen. Instructions discussed with patient who understood and agreed. Newly prescribed medications: Ancef 1Gm (vial) in peritoneal dialysis solution - once daily for 2 weeks (to be administered at outpatient dialysis center per Dr. Jordan) Objective - Vital Signs/Intake and Output Vital Signs (last 24 hours): Temp Pulse Resp BP Pulse Ox 98.4 F 70 20 128/81 97 04/06/17 07:40 04/06/17 07:40 04/06/17 07:40 04/06/17 07:40 04/06/17 07:40 Intake and Output: 04/06/17 04/06/17 06:59 18:59 Intake Total 240 Balance 240 - Medications Medications: Current Medications Acetaminophen (Tylenol 325mg Tab) 650 mg PO Q6 PRN PRN Reason: Temperature Last Admin: 03/27/17 17:07 Dose: 650 mg Albuterol Sulfate (Albuterol 0.042% Inhal Qian (1.25mg/3ml) Ud) 1.25 mg INH RQ6 ISABELLA Last Admin: 04/06/17 13:05 Dose: Not Given Albuterol Sulfate (Albuterol 0.042% Inhal Qian (1.25mg/3ml) Ud) 1.25 mg INH Q4 PRN PRN Reason: Shortness of Breath Last Admin: 04/02/17 16:25 Dose: 1.25 mg Aspirin (Ecotrin) 81 mg PO DAILY [facility] Last Admin: 04/06/17 10:14 Dose: 81 mg Calcium Acetate (Phoslo) 1,334 mg PO TIDCC [facility] Last Admin: 04/06/17 12:45 Dose: 1,334 mg Cinacalcet (Sensipar) 30 mg PO DAILY [facility] Last Admin: 04/06/17 10:13 Dose: 30 mg Diclofenac Sodium (Voltaren) 75 mg PO BID PRN PRN Reason: ` Last Admin: 04/04/17 09:36 Dose: 75 mg Escitalopram Oxalate (Lexapro) 10 mg PO HS [facility] Last Admin: 04/05/17 21:41 Dose: 10 mg Ferrous Sulfate (Feosol) 325 mg PO DAILY [facility] Last Admin: 04/06/17 10:14 Dose: 325 mg Cefepime HCl (Maxipime Iv 1 Gm Premix) 1 gm in 50 mls @ 100 mls/hr IVPB Q24H [facility] Last Admin: 04/05/17 18:55 Dose: 100 mls/hr Cefazolin Sodium 250 mg/ (Peritoneal Dialysis Solution) 2,000 mls @ 0 mls/hr IP Q6 ISABELLA PRN Reason: UD Last Admin: 04/06/17 12:14 Dose: 250 mls/hr Lactulose (Enulose) 20 gm PO DAILY [facility] Last Admin: 04/06/17 10:14 Dose: 20 gm Morphine Sulfate (Morphine) 2 mg IVP Q6 PRN PRN Reason: Pain, moderate (4-7) Last Admin: 04/06/17 06:18 Dose: 2 mg Ondansetron HCl (Zofran Inj) 4 mg IVP Q6H PRN PRN Reason: Nausea/Vomiting Last Admin: 04/06/17 11:09 Dose: 4 mg Pantoprazole Sodium (Protonix Ec Tab) 40 mg PO DAILY [facility] Last Admin: 04/06/17 10:13 Dose: 40 mg Potassium Chloride (Potassium Chloride Oral Soln) 20 meq PO DAILY [facility] Last Admin: 04/06/17 10:13 Dose: 20 meq Potassium Chloride (K-Dur 20 Meq Er Tab) 20 meq PO DAILY [facility] Last Admin: 04/06/17 10:14 Dose: 20 meq Promethazine HCl/Dextromethorphan (Phenergan Dm Syrup) 10 ml PO Q8 PRN PRN Reason: Cough Last Admin: 04/03/17 21:48 Dose: 10 ml - Labs Labs: 04/06/17 11:49 04/06/17 11:49 - Additional Findings Additional findings: - Constitutional Appears: Non-toxic, No Acute Distress - Head Exam Head Exam: ATRAUMATIC, NORMAL INSPECTION, NORMOCEPHALIC - Eye Exam Eye Exam: EOMI - ENT Exam ENT Exam: Mucous Membranes Moist - Neck Exam Neck Exam: Full ROM, Normal Inspection - Respiratory Exam Respiratory Exam: NORMAL BREATHING PATTERN. absent: Respiratory Distress - Cardiovascular Exam Cardiovascular Exam: Regular Rate, +S1, +S2 - GI/Abdominal Exam GI & Abdominal Exam: Soft, Normal Bowel Sounds Note: L abdomen port for peritoneal dialysis is CDI, no erythema; Non tender to palpation, minimal distention, no fluid wave appreciated - Extremities Exam Extremities Exam: Full ROM, Normal Inspection - Neurological Exam Neurological Exam: Alert, Awake, Oriented x3 - Psychiatric Exam Psychiatric exam: Normal Affect, Normal Mood - Skin Skin Exam: Dry, Intact, Normal Color, Warm Assessment and Plan - Assessment and Plan (Free Text) Assessment: 36yo F w/ ESRD on peritoneal dialysis admitted for SBP Abdominal pain 06/12 to SBP 04/06: Patient to complete 2 weeks of outpatient peritoneal abx administration per Dr. Jordan. 04/03: Continue IV Abx. Afebrile. Pain well controlled. Peritoneal Fluid RBC 3, Neut 62, Lymphocytes 24, [place] 10. Abt CT 03/31- mild nonspecific enteritis of small bowel at LUQ; small hiatal hernia. 04/01: Continue IV Abx. Afebrile. Continue Morphine 2mg IVP Q4H PRN, moderate pain. 03/31: Patient was explained in detail that she needs to clean her abdomen in a sterile fashion when she does peritoneal dialysis and keep the area extremely clean in order to prevent further SBP. Patient verbalized understanding. PD fluid with staph epi. Continue IV Abx. Nephro consult. recs appreciated. Dr. Jordan -patient will need 2 more days IV abx and will need to take abx as outpatient for prophylaxis for SBP -renal diet -blood cultures negative x72hrs -morphine2 mg q 4 hrs IV prn severe pain -ID consult. Dr. Sosa. recs appreciated. -Afebrile since 03/27, Last temp 101.5F -cefazolin IV (start date 03/26) -ceftriaxone IV 1 g daily (start date 03/26) -vancomycin 1 g MWF (start date 03/27) hx of anxiety -continue lexapro daily hx of peritoneal dialysis nephro consult as above. continue cinacalcet hx of HTN 04/06: WNL, continue current treatment with Clonidine 0.2mg PO BID. 04/01: Patient was hypotensive yesterday at 90/60 (likely 2/2 morphine). All BP meds stopped except for Clonidine 0.2mg PO BID. - lisinopril 20 po daily - minoxidil 5 PO BID - clonidine .2 mg PO BID - norvasc PO daily - asa 81 mg po daily Anemia -normocytic -continue ferrous sulfate 325 PO daily GI/DVT ppx -protonix daily -SCDs Case discussed with attending. All medical management as per Dr. Denis Orr <Vanessa Orr S - Last Filed: 04/06/17 17:37> Objective - Vital Signs/Intake and Output Vital Signs (last 24 hours): Temp Pulse Resp BP Pulse Ox 98.4 F 70 20 128/81 97 04/06/17 07:40 04/06/17 07:40 04/06/17 07:40 04/06/17 07:40 04/06/17 07:40 Intake and Output: 04/06/17 04/06/17 06:59 18:59 Intake Total 240 Balance 240 - Labs Labs: 04/06/17 11:49 04/06/17 11:49 Assessment and Plan (1) Abdominal pain Status: Acute (2) ESRD (end stage renal disease) Status: Acute (3) Hypertensive chronic kidney disease with stage 5 chronic kidney disease or end stage renal disease Status: Acute (4) Hypertensive urgency Status: Acute (5) Patient on peritoneal dialysis Status: Acute (6) Peritonitis Status: Acute (7) AMPARO (acute kidney injury) Status: Acute (8) Acute cholecystitis Status: Acute (9) Acute peritonitis Status: Acute (10) Anemia Status: Acute (11) Benign hypertensive kidney disease with end stage renal disease Status: Acute (12) CHF (congestive heart failure) Status: Acute (13) CKD (chronic kidney disease) stage 5, GFR less than 15 ml/min Status: Acute (14) CKD stage 5 secondary to hypertension Status: Acute (15) Chest pain Status: Acute (16) Dependency on pain medication Status: Acute (17) ESRD (end stage renal disease) Status: Acute (18) ESRD (end stage renal disease) Status: Acute (19) Elevated lipase Status: Acute (20) End stage renal disease Status: Acute (21) HTN (hypertension) Status: Acute (22) Hypertension Status: Acute (23) Hypertensive chronic kidney disease with stage 5 chronic kidney disease or end stage renal disease Status: Acute (24) Hypertensive emergency Status: Acute (25) Hypokalemia Status: Acute (26) Hypokalemia Status: Acute (27) Hypokalemia Status: Acute (28) Hypoxia Status: Acute (29) Intractable abdominal pain Status: Acute (30) NSTEMI (non-ST elevated myocardial infarction) Status: Acute (31) Nausea Status: Acute (32) Nausea & vomiting Status: Acute (33) Nephrolithiasis Status: Acute (34) PUD (peptic ulcer disease) Status: Acute (35) Pneumonia Status: Acute (36) Prophylactic measure Status: Acute (37) Prophylactic measure Status: Acute (38) Proteinuria Status: Acute (39) Renal failure Status: Acute (40) Renal insufficiency Status: Acute (41) Uncontrolled hypertension Status: Acute (42) Vomiting Status: Acute Attending/Attestation - Attestation I have personally seen and examined this patient.: Yes I have fully participated in the care of the patient.: Yes I have reviewed all pertinent clinical information, including history, physical exam and plan: Yes Notes (Text): Patient examined. Patient better. Patient wants to go home. No abdominal pain. Continue cefepime and cefazolin. Continue aspirin. Continue antihypertensive medications. Continue supportive care.
== END 2017-04-06 14:42 | disposition home or self-care (01) | DRG 895 ==
LOC: C.ER 14:11 → C.9E 16:38 → C.6T 03-26 01:01 → OBSVTOIN 03-28 14:23
PROVIDERS: ADMIT Internal Medicine Nephrology; ATTEND Internal Medicine Nephrology
PROC: 3E1M39Z Irrigation of Peritoneal Cavity using Dialysate, Percutaneous Approach (ICD-10-PCS; principal; 2017-03-29)
DX: K65.2 Spontaneous bacterial peritonitis (principal); I13.2 Hypertensive heart and chronic kidney disease with heart failure and with stage 5 chronic kidney disease, or end stage renal disease; N18.6 End stage renal disease; E87.6 Hypokalemia; I50.9 Heart failure, unspecified; B95.8 Unspecified staphylococcus as the cause of diseases classified elsewhere; F17.210 Nicotine dependence, cigarettes, uncomplicated; F32.9 Major depressive disorder, single episode, unspecified; D64.9 Anemia, unspecified; F41.9 Anxiety disorder, unspecified; G89.29 Other chronic pain; K59.00 Constipation, unspecified; N20.0 Calculus of kidney; Z79.82 Long term (current) use of aspirin; Z87.11 Personal history of peptic ulcer disease; Z99.2 Dependence on renal dialysis

== ENCOUNTER 2017-05-25 07:01 | Inpatient (IN) | payer OTHER ==
[2017-05-25 07:01] VITALS: BMI 24.3
[2017-05-25] MEDS ORDERED: Labetalol 5 mg/ml Inj 20ML IV STA (07:37)
[2017-05-25 07:50] LABS: BASO # 0.1 K/uL (0.0-0.2); BASO % 0.5 % (0.0-2.0); HEMOGLOBIN 14.4 g/dL (11.0-16.0); LYMPH # 1.1 K/uL (1.0-4.3); LYMPH % 4.8 % (20.0-40.0); MEAN CORPUSCULAR HEMOGLOBIN 31.3 pg (27.0-31.0); MEAN CORPUSCULAR HGB CONC 34.6 g/dL (33.0-37.0); MONO # 0.4 K/uL (0.0-0.8); MONO % 1.7 % (0.0-10.0); NEUT # 22.3 K/uL (1.8-7.0); PLATELET COUNT 581 K/uL (130-400); RED CELL DISTRIBUTION WIDTH 14.5 % (11.5-14.5)
[2017-05-25 07:55] LABS: MEAN CELL VOLUME 90.5 fL (81.0-99.0); WHITE BLOOD COUNT 23.9 K/uL (4.8-10.8)
[2017-05-25] MEDS ORDERED: Morphine 4 MG/ML VIAL IV STA (08:06)
[2017-05-25 08:12] LABS: ALBUMIN 4.8 g/dL (3.5-5.0); CALCIUM 9.7 mg/dl (8.6-10.4)
[2017-05-25 08:20] LABS: ALB/GLOB RATIO 1.4 (1.0-2.1)
[2017-05-25 08:22] LABS: TROPONIN I 0.025 ng/mL (0.00-0.120)
--- NOTE | 2017-05-25 08:37 | RAD ---
Chest x-ray single frontal view History: Abdominal pain. Comparison: None available. Findings: Lucency underneath the right hemidiaphragm concerning possible free intraperitoneal air. Clinical correlation. Lung mohan are clear. Heart size limits. Impression: Lucency under the right hemidiaphragm concerning for possible free intraperitoneal air. Clinical correlation.
[2017-05-25 08:45] LABS: LYMPHOCYTE 5 % (20-40); MONOCYTE 3 % (0-10); MYELOCYTE 1 % (0-0); NEUTROPHIL 91 % (50-75); PLATELET ESTIMATE INCREASED (NORMAL); TOTAL CELLS COUNTED 100
[2017-05-25] MEDS ORDERED: ceFAZolin IV 1 gm in Dextrose 1 GM/50 ML BAG IVPB ONE (08:56)
[2017-05-25] MEDS ORDERED: ceFAZolin 1 gm FROZEN Premix 1 GM/50 ML ML IVPB ONE (09:01)
--- NOTE | 2017-05-25 09:15 | C.PDOC ---
History Of Present Illness 36 year old female, with PMHx of ESRD on PD, peritonitis, presents to ED for evaluation of abdominal pain that developed at 3:00AM this morning. Notes her dialysis was completed at 5:00AM today. Pt reports associated n/v/d. Denies fever, chills, chest pain, or shortness of breath. Time Seen by Provider: 05/25/17 07:19 Chief Complaint (Nursing): Abdominal Pain History Per: Patient History/Exam Limitations: no limitations Onset/Duration Of Symptoms: Hrs, Sudden Onset Current Symptoms Are (Timing): Still Present Location Of Pain/Discomfort: Epigastric Radiation Of Pain To:: None Quality Of Discomfort: "Pain" Associated Symptoms: Nausea, Vomiting, Diarrhea. denies: Fever, Chills, Loss Of Appetite, Back Pain, Chest Pain, Constipation, Urinary Symptoms Exacerbating Factors: None Alleviating Factors: None Recent travel outside of the [place]: No Additional History Per: Patient Abnormal Vaginal Bleeding: No Past Medical History Reviewed: Historical Data, Nursing Documentation, Vital Signs Vital Signs: Last Vital Signs Temp 98.9 F 05/25/17 07:08 Pulse 70 05/25/17 11:03 Resp 16 05/25/17 11:03 BP 167/106 H 05/25/17 11:03 Pulse Ox 100 05/25/17 11:03 - Medical History PMH: Anemia, Anxiety, CHF, Depression, HTN, Kidney Stones (left), End Stage Renal Disease (on PD), Chronic Kidney Disease Surgical History: Cholecystectomy - [facility] Procedures INSERT OF INFUSION DEV INTO PERITON CAV, PERC ENDO APPROACH (11/08/16) IRRIGATION OF PERITON CAV USING DIALYSATE, PERC APPROACH (03/28/17) PERFORMANCE OF URINARY FILTRATION, SINGLE (12/31/16) PLAIN RADIOGRAPHY OF BILE DUCTS USING OTHER CONTRAST (11/29/16) RESECTION OF GALLBLADDER, PERCUTANEOUS ENDOSCOPIC APPROACH (11/29/16) Family History: States: Unknown Family Hx - Social History Hx Alcohol Use: No Hx Substance Use: No - Immunization History Hx Tetanus Toxoid Vaccination: No Hx Influenza Vaccination: Yes Hx Pneumococcal Vaccination: No Review Of Systems Except As Marked, All Systems Reviewed And Found Negative. Constitutional: Negative for: Fever, Chills Cardiovascular: Negative for: Chest Pain, Palpitations Respiratory: Negative for: Cough, Shortness of Breath Gastrointestinal: Positive for: Nausea, Vomiting, Abdominal Pain, Diarrhea. Negative for: Melena, Hematochezia, Hematemesis Genitourinary: Negative for: Dysuria, Frequency, Hematuria Musculoskeletal: Negative for: Back Pain Neurological: Negative for: Headache, Dizziness Physical Exam - Physical Exam Appears: Non-toxic, No Acute Distress Skin: Normal Color, Warm, Dry Head: Atraumatic, Normacephalic Eye(s): bilateral: Normal Inspection Oral Mucosa: Moist Neck: Supple Cardiovascular: Rhythm Regular, No Murmur Respiratory: Normal Breath Sounds, No Rales, No Rhonchi, No Wheezing Gastrointestinal/Abdominal: Soft, Tenderness (epigastric), No Guarding, No Rebound, Other (peritoneal dialysis catheter in LLQ) Back: No CVA Tenderness Extremity: Normal ROM, No Pedal Edema, No Deformity Neurological/Psych: Oriented x3, Normal Speech ED Course And Treatment - Laboratory Results Result Diagrams: 05/25/17 07:42 05/25/17 07:42 ECG: Interpreted By Me, Viewed By Me ECG Rhythm: Sinus Rhythm ECG Interpretation: No Acute Changes Interpretation Of ECG: Non-specific ST wave changes. LVH. Left atrial enlargement. Normal axis, normal intervals. Rate From EC O2 Sat by Pulse Oximetry: 100 (RA) Pulse Ox Interpretation: Normal Medical Decision Making Medical Decision Making: Blood work, Urinalysis, Abd & Pelvis CT, CXR ordered and reviewed. Patient was given Morphine, Zofran, Protonix, and Labetalol. Assessment: Abdominal pain, r/o peritonitis Spoke with Dr. Jordan, requesting 1gm of Ancef IV, and agrees upon admission. Case discussed with Dr. Roberto. spoke with anesthesia resident for consult for Dr. Burgos. Disposition Discussed With : Vanessa Meraz Doctor Will See Patient In The: Hospital Counseled Patient/Family Regarding: Studies Performed, Diagnosis - Disposition Disposition: HOSPITALIZED Disposition Time: 09:15 Condition: FAIR - Clinical Impression Clinical Impression: HTN (hypertension), Nausea & vomiting, Abdominal pain, Peritonitis - Scribe Statement The provider has reviewed the documentation as recorded by the Funmi meraz All medical record entries made by the Chapinibjuan were at my direction and personally dictated by me. I have reviewed the chart and agree that the record accurately reflects my personal performance of the history, physical exam, medical decision making, and the department course for this patient. I have also personally directed, reviewed, and agree with the discharge instructions and disposition.
[2017-05-25] MEDS ORDERED: Morphine 4 MG/ML VIAL IV ONE (09:44)
[2017-05-25] MEDS ORDERED: Morphine 4 MG/ML VIAL ONE (09:47)
[2017-05-25 10:36] LABS: SQUAMOUS EPITHIAL 16 /hpf (0-5); URINE AMORPHOUS SEDIMENT RARE /ul (<OCC); URINE BACTERIA RARE (<OCC); URINE BILIRUBIN NEGATIVE (NEGATIVE); URINE BLOOD NEGATIVE (NEGATIVE); URINE CLARITY Hazy (Clear); URINE COLOR Yellow (YELLOW); URINE GLUCOSE (UA) 1+ mg/dL (Normal); URINE HYALINE CAST 0-2 /lpf (0-2); URINE LEUKOCYTE ESTERASE NEG Leu/uL (Negative); URINE NITRATE NEGATIVE (NEGATIVE); URINE PROTEIN 3+ mg/dL (NEGATIVE); URINE UROBILINOGEN NORMAL mg/dL (0.2-1.0)
--- NOTE | 2017-05-25 12:01 | CT ---
PROCEDURE: CT Abdomen and Pelvis without intravenous contrast HISTORY: abd pain COMPARISON: 03/31/2027 TECHNIQUE: Without contrast.. Contrast Dose: 0 Radiation dose: Total exam DLP = 697.73 mGy-cm. This CT exam was performed using one or more of the following dose reduction techniques: Automated exposure control, adjustment of the mA and/or kV according to patient size, and/or use of iterative reconstruction technique. FINDINGS: LOWER THORAX: Small hiatal hernia. LIVER: Normal size, contour and attenuation. No focal mass. Nodular calcification in left lobe of liver likely reflects old calcified granuloma. No biliary dilatation. GALLBLADDER AND BILE DUCTS: Status post cholecystectomy. PANCREAS: Unremarkable. No gross lesion or ductal dilatation. SPLEEN: Unremarkable. ADRENALS: Unremarkable. No mass. KIDNEYS AND URETERS: Tiny bilateral nonobstructing calculi. No mass. No hydronephrosis. VASCULATURE: Unremarkable. No aortic aneurysm. BOWEL: Unremarkable. No obstruction. No gross mural thickening. APPENDIX: Unremarkable. Normal appendix. PERITONEUM: There is mild ascites. A peritoneal dialysis catheter is noted. There is some intraperitoneal air particularly in the upper abdomen about the liver. Please correlate with dialysis history to assess for the possibility of bowel perforation versus air introduced with dialysis. LYMPH NODES: Unremarkable. No enlarged lymph nodes. BLADDER: Nondistended REPRODUCTIVE: Roughly 4.4 cm fibroid anterior lower uterine segment. Multiple low-density right adnexal masses, possibly cysts. However, correlation with ultrasound is suggested. In comparison to prior examination, this appears slightly more prominent. Smaller left adnexal cysts are also noted. Again, correlation with pelvic ultrasound examination is suggested. Differential diagnosis would include ovarian neoplasm, adnexal metastases, multiple ovarian cysts, tubo-ovarian abscess. BONES: Diffusely increased attenuation of all visualized vertebral bodies consistent with renal osteodystrophy. OTHER FINDINGS: None. IMPRESSION: Patient on peritoneal dialysis with ascites fluid and dialysis catheter. Pneumoperitoneum must be assessed relative to recent dialysis history. The possibility of a perforated hollow viscus must be considered this context and further evaluation should be considered. Small hiatal hernia. Status post cholecystectomy. Bilateral low-density adnexal masses. Possible ovarian cysts. See above for differential diagnosis. Recommend evaluation with pelvic ultrasound examination. Probable uterine fibroid. . The findings in this examination were discussed by telephone with Dr. Cardenas at 11:09 a.m. on 05/25/2017. As free air but it peritoneal dialysis still with Bhagat's at 3 since the expected finding well but the head in the ER patient though with pulmonary is 0 three next patient is
[2017-05-25] MEDS ORDERED: HYDROmorphone 0.5 mg/0.5 ml ISec IVP PRN (13:11)
--- NOTE | 2017-05-25 13:19 | CP.PCM.CON ---
History of Present Illness - History of Present Illness History of Present Illness: 36 year old female, with PMHx of ESRD on PD, peritonitis, presents to ED for evaluation of abdominal pain that developed at 3:00AM this morning. Notes her dialysis was completed at 5:00AM today. Pt reports associated n/v/d. Denies fever, chills, chest pain, or shortness of breath. Has had mostly RUQ pains, unclear if PD fluid clear, has leukocytosis. PMH: ESRD HTN NEPHROSCLEROSIS PERITONITIS X 2 PAIN MED DEPENDENCE PSH: PD CATH PERMCATH Review of Systems - Constitutional Constitutional: As Per HPI, Weakness - EENT Eyes: absent: As Per HPI, Blind Spots, Blurred Vision, Change in Vision, Decreased Night Vision, Diplopia, Discharge, Dry Eye, Exophthalmos, Floaters, Irritation, Itchy Eyes, Loss of Peripheral Vision, Pain, Photophobia, Requires Corrective Lenses, Sees Flashes, Spots in Vision, Tunnel Vision, Other Visual Disturbances, Loss of Vision, Other Ears: absent: As Per HPI, Decreased Hearing, Ear Discharge, Ear Pain, Tinnitus, Abnormal Hearing, Disequilibrium, Dizziness, Other Nose/Mouth/Throat: absent: As Per HPI, Epistaxis, Nasal Congestion, Nasal Discharge, Nasal Obstruction, Nasal Trauma, Nose Pain, Post Nasal Drip, Sinus Pain, Sinus Pressure, Bleeding Gums, Change in Voice, Dental Pain, Dry Mouth, Dysphagia, Halitosis, Hoarsness, Lip Swelling, Mouth Lesions, Mouth Pain, Odynophagia, Sore Throat, Throat Swelling, Tongue Swelling, Facial Pain, Neck Pain, Neck Mass, Other - Gastrointestinal Gastrointestinal: Abdominal Pain, Nausea - Genitourinary Genitourinary: As Per HPI - Musculoskeletal Musculoskeletal: Muscle Cramps, Myalgias - Neurological Neurological: absent: As Per HPI, Abnormal Gait, Abnormal Hearing, Abnormal Movements, Abnormal Speech, Behavioral Changes, Burning Sensations, Confusion, Convulsions, Disequilibrium, Dizziness, Numbness, Focal Weakness, Frequent Falls , Headaches, Lack of Coordination, Loss of Vision, Memory Loss, Paresthesias, Radicular Pain, Restless Legs, Sensory Deficit, Syncope, Tingling, Tremor, Vertigo, Weakness, Other Visual Disturbances, Other Past Patient History - Past Medical History & Family History Past Medical History?: Yes Pertinent Family History: Mother with CKD - Past Social History Smoking Status: Light Smoker < 10 Cigarettes Daily Chewing Tobacco Use: No Cigar Use: No Alcohol: Occasional Drugs: Prescription medications Home Situation {Lives}: With Family - CARDIAC Hx Congestive Heart Failure: Yes Hx Hypertension: Yes - PULMONARY Hx Respiratory Disorders: No - NEUROLOGICAL Hx Neurological Disorder: No - HEENT Hx HEENT Problems: No - RENAL Hx Chronic Kidney Disease: Yes Hx Kidney Stones: Yes (left) - ENDOCRINE/METABOLIC Hx Endocrine Disorders: No - HEMATOLOGICAL/ONCOLOGICAL Hx Anemia: Yes - INTEGUMENTARY Hx Dermatological Problems: No - MUSCULOSKELETAL/RHEUMATOLOGICAL Hx Falls: No - GASTROINTESTINAL Hx Gastrointestinal Disorders: No - GENITOURINARY/GYNECOLOGICAL Hx Genitourinary Disorders: No - PSYCHIATRIC Hx Anxiety: Yes Hx Depression: Yes Hx Substance Use: No - SURGICAL HISTORY Hx Cholecystectomy: Yes - ANESTHESIA Hx Anesthesia: Yes Hx Anesthesia Reactions: No Hx Malignant Hyperthermia: No Meds Allergies/Adverse Reactions: Allergies Allergy/AdvReac Type Severity Reaction Status Date / Time No Known Allergies Allergy Verified 05/25/17 07:12 - Medications Medications: Current Medications Hydromorphone HCl (Dilaudid) 0.5 mg IVP Q4H PRN PRN Reason: Pain, severe (8-10) Cefazolin Sodium 500 mg/ (Sodium Chloride) 100 mls @ 100 mls/hr IVPB Q8H ISABELLA Ondansetron HCl (Zofran Inj) 4 mg IVP Q4 PRN PRN Reason: Nausea/Vomiting Physical Exam - Constitutional Appears: Non-toxic, No Acute Distress, Chronically Ill - Head Exam Head Exam: ATRAUMATIC, NORMAL INSPECTION - Eye Exam Eye Exam: EOMI, Normal appearance - Neck Exam Neck exam: Positive for: Normal Inspection. Negative for: Tenderness - Respiratory Exam Respiratory Exam: Clear to Auscultation Bilateral, NORMAL BREATHING PATTERN - Cardiovascular Exam Cardiovascular Exam: REGULAR RHYTHM, +S1 - GI/Abdominal Exam GI & Abdominal Exam: Soft, Tenderness - Extremities Exam Extremities exam: Positive for: normal inspection. Negative for: tenderness - Neurological Exam Neurological exam: Alert, CN II-XII Intact - Skin Skin Exam: Dry, Warm Results - Vital Signs Recent Vital Signs: Last Vital Signs Temp 98.9 F 05/25/17 07:08 Pulse 86 05/25/17 13:05 Resp 16 05/25/17 13:05 BP 167/103 H 05/25/17 13:16 Pulse Ox 100 05/25/17 13:05 - Labs Result Diagrams: 05/25/17 07:42 05/25/17 07:42 Labs: Laboratory Results - last 24 hr 05/25/17 05/25/17 05/25/17 07:42 07:42 10:22 WBC 23.9 H D RBC 4.60 Hgb 14.4 Hct 41.6 MCV 90.5 D MCH 31.3 H MCHC 34.6 RDW 14.5 Plt Count 581 H MPV 8.0 Neut % (Auto) 93.0 H Lymph % (Auto) 4.8 L [place] % (Auto) 1.7 Eos % (Auto) 0.0 Baso % (Auto) 0.5 Neut # 22.3 H Lymph # 1.1 [place] # 0.4 Eos # 0.0 Baso # 0.1 Neutrophils % (Manual) 91 H Lymphocytes % (Manual) 5 L Monocytes % (Manual) 3 Myelocytes % 1 H Platelet Estimate Increased H Sodium 139 Potassium 3.6 Chloride 98 Carbon Dioxide 24 Anion Gap 21 H BUN 29 H Creatinine 4.1 H Est GFR ( Amer) 15 Est GFR (Non-Af Amer) 12 Random Glucose 164 H Calcium 9.7 Total Bilirubin 0.5 AST 13 L D ALT 8 L D Alkaline Phosphatase 98 Troponin I 0.0250 Total Protein 8.3 Albumin 4.8 Globulin 3.4 Albumin/Globulin Ratio 1.4 Lipase 222 Urine Color Yellow Urine Clarity Hazy Urine pH 5.0 Ur Specific Mineral 1.024 Urine Protein 3+ H Urine Glucose (UA) 1+ Urine Ketones Negative Urine Blood Negative Urine Nitrate Negative Urine Bilirubin Negative Urine Urobilinogen Normal Ur Leukocyte Esterase Neg Urine WBC (Auto) 5 Urine RBC (Auto) 1 Ur Squamous Epith Cells 16 H Amorphous Sediment Rare H Urine Bacteria Rare Hyaline Casts 0-2 Assessment & Plan (1) Hypertensive chronic kidney disease with stage 5 chronic kidney disease or end stage renal disease Status: Acute (2) Intractable abdominal pain Status: Acute (3) End stage renal disease Status: Acute (4) Intractable abdominal pain Status: Acute - Assessment and Plan (Free Text) Plan: PD fluid C+S blood C+S Revert to HD Eventual removal PD cath, needs AV access
--- NOTE | 2017-05-25 13:23 | CP.PCM.CON ---
History of Present Illness - History of Present Illness History of Present Illness: Surgery Surgery Consult for Dr. Pedraza Reason for consult: Abdominal pain and findings of Free air on CT scan 36 F with PMH of htn and peritoneal dialysis for CKD was admitted for abd pain. Surgery was consulted for complaints of abdominal pain and free air on CT scan. Pt had peritoneal dialysis catheter placed in on 11/2016 and had multiple admission for abd pain since then. This time pain started this morning while getting PD. She states gradual onset and states it has gotten progressively worse. She rates pain as moderate. Pain is more on the L abd. Patient was admitted for similar symptoms and received antibiotics through PD catheter which did not help. Pt reports N/V. Non bloody, non billious. Denies F/C/D/CP/ SOB. Patient on is on 9 hours of PD per day (uses machine). Pt preferes PD over AVF because of cosmesis. PMD: Dr. Denis Orr PMH: HTN, CKD requiring peritoneal dialysis Meds: As per EMR Allergy: NKDA PSH: cholecystectomy, peritoneal dialysis catheter (2016) FH: DM, Arrythmia, Bone CA Social: current smoker - 5 cigs per day for 20 years; lives with sister; denies EtOH/illicit drug use; unemployed Review of Systems - Review of Systems Review of Systems: See HPI Past Patient History - Past Medical History & Family History Past Medical History?: Yes - Past Social History Smoking Status: Light Smoker < 10 Cigarettes Daily - CARDIAC Hx Congestive Heart Failure: Yes Hx Hypertension: Yes - PULMONARY Hx Respiratory Disorders: No - NEUROLOGICAL Hx Neurological Disorder: No - HEENT Hx HEENT Problems: No - RENAL Hx Chronic Kidney Disease: Yes Hx Kidney Stones: Yes (left) - ENDOCRINE/METABOLIC Hx Endocrine Disorders: No - HEMATOLOGICAL/ONCOLOGICAL Hx Anemia: Yes - INTEGUMENTARY Hx Dermatological Problems: No - MUSCULOSKELETAL/RHEUMATOLOGICAL Hx Falls: No - GASTROINTESTINAL Hx Gastrointestinal Disorders: No - GENITOURINARY/GYNECOLOGICAL Hx Genitourinary Disorders: No - PSYCHIATRIC Hx Anxiety: Yes Hx Depression: Yes Hx Substance Use: No - SURGICAL HISTORY Hx Cholecystectomy: Yes - ANESTHESIA Hx Anesthesia: Yes Hx Anesthesia Reactions: No Hx Malignant Hyperthermia: No Meds Allergies/Adverse Reactions: Allergies Allergy/AdvReac Type Severity Reaction Status Date / Time No Known Allergies Allergy Verified 05/25/17 07:12 - Medications Medications: Current Medications Hydromorphone HCl (Dilaudid) 0.5 mg IVP Q4H PRN PRN Reason: Pain, severe (8-10) Cefazolin Sodium 500 mg/ (Sodium Chloride) 100 mls @ 100 mls/hr IVPB Q8H [facility]A Ondansetron HCl (Zofran Inj) 4 mg IVP Q4 PRN PRN Reason: Nausea/Vomiting Physical Exam - Constitutional Appears: No Acute Distress - Head Exam Head Exam: ATRAUMATIC, NORMAL INSPECTION, NORMOCEPHALIC - Eye Exam Eye Exam: EOMI, Normal appearance, PERRL Pupil Exam: NORMAL ACCOMODATION, PERRL - ENT Exam ENT Exam: Mucous Membranes Moist, Normal Exam - Neck Exam Neck exam: Positive for: Normal Inspection - Respiratory Exam Respiratory Exam: Clear to Auscultation Bilateral, NORMAL BREATHING PATTERN - Cardiovascular Exam Cardiovascular Exam: REGULAR RHYTHM - GI/Abdominal Exam GI & Abdominal Exam: Normal Bowel Sounds, Soft, Tenderness. absent: Distended, Firm, Guarding, Hernia, Rebound, Rigid Additional comments: PD in place - Extremities Exam Extremities exam: Positive for: normal inspection - Back Exam Back exam: NORMAL INSPECTION - Neurological Exam Neurological exam: Alert, CN II-XII Intact, Normal Gait, Oriented x3, Reflexes Normal - Psychiatric Exam Psychiatric exam: Normal Affect, Normal Mood - Skin Skin Exam: Dry, Intact, Normal Color, Warm Results - Vital Signs Recent Vital Signs: Last Vital Signs Temp 98.9 F 05/25/17 07:08 Pulse 86 05/25/17 13:05 Resp 16 05/25/17 13:05 BP 167/103 H 05/25/17 13:16 Pulse Ox 100 05/25/17 13:05 - Labs Result Diagrams: 05/25/17 07:42 05/25/17 07:42 Labs: Laboratory Results - last 24 hr 05/25/17 05/25/17 05/25/17 07:42 07:42 10:22 WBC 23.9 H D RBC 4.60 Hgb 14.4 Hct 41.6 MCV 90.5 D MCH 31.3 H MCHC 34.6 RDW 14.5 Plt Count 581 H MPV 8.0 Neut % (Auto) 93.0 H Lymph % (Auto) 4.8 L [place] % (Auto) 1.7 Eos % (Auto) 0.0 Baso % (Auto) 0.5 Neut # 22.3 H Lymph # 1.1 [place] # 0.4 Eos # 0.0 Baso # 0.1 Neutrophils % (Manual) 91 H Lymphocytes % (Manual) 5 L Monocytes % (Manual) 3 Myelocytes % 1 H Platelet Estimate Increased H Sodium 139 Potassium 3.6 Chloride 98 Carbon Dioxide 24 Anion Gap 21 H BUN 29 H Creatinine 4.1 H Est GFR ( Amer) 15 Est GFR (Non-Af Amer) 12 Random Glucose 164 H Calcium 9.7 Total Bilirubin 0.5 AST 13 L D ALT 8 L D Alkaline Phosphatase 98 Troponin I 0.0250 Total Protein 8.3 Albumin 4.8 Globulin 3.4 Albumin/Globulin Ratio 1.4 Lipase 222 Urine Color Yellow Urine Clarity Hazy Urine pH 5.0 Ur Specific [place] 1.024 Urine Protein 3+ H Urine Glucose (UA) 1+ Urine Ketones Negative Urine Blood Negative Urine Nitrate Negative Urine Bilirubin Negative Urine Urobilinogen Normal Ur Leukocyte Esterase Neg Urine WBC (Auto) 5 Urine RBC (Auto) 1 Ur Squamous Epith Cells 16 H Amorphous Sediment Rare H Urine Bacteria Rare Hyaline Casts 0-2 Assessment & Plan - Assessment and Plan (Free Text) Assessment: Abd pain CT: free air . PD in good place Free air likely from PD catheter. Seen last admission as well. -Cont PD daily -F/U PD fluid cultre -trend WBC -Possible ABX via PD cath -ABX -Pain control -Nausea control -Recommend AVF if complication with PD cath continues: Pt refuses AVF DW Dr. Pedraza
--- NOTE | 2017-05-25 13:49 | CP.PCM.HP ---
Past Patient History - Past Medical History & Family History Past Medical History?: Yes - Past Social History Smoking Status: Light Smoker < 10 Cigarettes Daily - CARDIAC Hx Congestive Heart Failure: Yes Hx Hypertension: Yes - PULMONARY Hx Respiratory Disorders: No - NEUROLOGICAL Hx Neurological Disorder: No - HEENT Hx HEENT Problems: No - RENAL Hx Chronic Kidney Disease: Yes Hx Kidney Stones: Yes (left) - ENDOCRINE/METABOLIC Hx Endocrine Disorders: No - HEMATOLOGICAL/ONCOLOGICAL Hx Anemia: Yes - INTEGUMENTARY Hx Dermatological Problems: No - MUSCULOSKELETAL/RHEUMATOLOGICAL Hx Falls: No - GASTROINTESTINAL Hx Gastrointestinal Disorders: No - GENITOURINARY/GYNECOLOGICAL Hx Genitourinary Disorders: No - PSYCHIATRIC Hx Anxiety: Yes Hx Depression: Yes Hx Substance Use: No - SURGICAL HISTORY Hx Cholecystectomy: Yes - ANESTHESIA Hx Anesthesia: Yes Hx Anesthesia Reactions: No Hx Malignant Hyperthermia: No Meds Allergies/Adverse Reactions: Allergies Allergy/AdvReac Type Severity Reaction Status Date / Time No Known Allergies Allergy Verified 05/25/17 07:12 Results - Vital Signs Recent Vital Signs: Last Vital Signs Temp 98.9 F 05/25/17 07:08 Pulse 86 05/25/17 13:05 Resp 16 05/25/17 13:05 BP 167/103 H 05/25/17 13:16 Pulse Ox 100 05/25/17 13:05 - Labs Result Diagrams: 05/25/17 07:42 05/25/17 07:42 Labs: Laboratory Results - last 24 hr 05/25/17 05/25/17 05/25/17 07:42 07:42 10:22 WBC 23.9 H D RBC 4.60 Hgb 14.4 Hct 41.6 MCV 90.5 D MCH 31.3 H MCHC 34.6 RDW 14.5 Plt Count 581 H MPV 8.0 Neut % (Auto) 93.0 H Lymph % (Auto) 4.8 L [place] % (Auto) 1.7 Eos % (Auto) 0.0 Baso % (Auto) 0.5 Neut # 22.3 H Lymph # 1.1 [place] # 0.4 Eos # 0.0 Baso # 0.1 Neutrophils % (Manual) 91 H Lymphocytes % (Manual) 5 L Monocytes % (Manual) 3 Myelocytes % 1 H Platelet Estimate Increased H Sodium 139 Potassium 3.6 Chloride 98 Carbon Dioxide 24 Anion Gap 21 H BUN 29 H Creatinine 4.1 H Est GFR ( Amer) 15 Est GFR (Non-Af Amer) 12 Random Glucose 164 H Calcium 9.7 Total Bilirubin 0.5 AST 13 L D ALT 8 L D Alkaline Phosphatase 98 Troponin I 0.0250 Total Protein 8.3 Albumin 4.8 Globulin 3.4 Albumin/Globulin Ratio 1.4 Lipase 222 Urine Color Yellow Urine Clarity Hazy Urine pH 5.0 Ur Specific [place] 1.024 Urine Protein 3+ H Urine Glucose (UA) 1+ Urine Ketones Negative Urine Blood Negative Urine Nitrate Negative Urine Bilirubin Negative Urine Urobilinogen Normal Ur Leukocyte Esterase Neg Urine WBC (Auto) 5 Urine RBC (Auto) 1 Ur Squamous Epith Cells 16 H Amorphous Sediment Rare H Urine Bacteria Rare Hyaline Casts 0-2
--- NOTE | 2017-05-25 13:53 | CP.PCM.PN ---
Subjective - Date & Time of Evaluation Date of Evaluation: 05/25/17 Time of Evaluation: 13:53 - Subjective Subjective: will place permacath 05/26 in OR Objective - Vital Signs/Intake and Output Vital Signs (last 24 hours): Temp Pulse Resp BP Pulse Ox 98.9 F 86 16 167/103 H 100 05/25/17 07:08 05/25/17 13:05 05/25/17 13:05 05/25/17 13:16 05/25/17 13:05 - Medications Medications: Current Medications Hydromorphone HCl (Dilaudid) 0.5 mg IVP Q4H PRN PRN Reason: Pain, severe (8-10) Cefazolin Sodium 500 mg/ (Sodium Chloride) 100 mls @ 100 mls/hr IVPB Q8H [facility] Ondansetron HCl (Zofran Inj) 4 mg IVP Q4 PRN PRN Reason: Nausea/Vomiting - Labs Labs: 05/25/17 07:42 05/25/17 07:42
[2017-05-25] MEDS ORDERED: Diclofenac Sodium Delayed Release 75 mg EC Tab PO PRN (14:15)
[2017-05-26] MEDS ORDERED: Lidocaine 1% Inj (20ml) ONE (11:46)
[2017-05-26] MEDS ORDERED: HEPARIN-NS 5,000 UNITS/500 ML 5,000 UNIT/500 ML BAG IV ONE (11:46)
--- NOTE | 2017-05-26 11:49 | VASCLAB ---
PROCEDURE: Upper Extremity Venous Duplex Exam HISTORY: pre op avf PRIORS: None. TECHNIQUE: Bilateral upper extremity, internal jugular, subclavian, axillary, brachial, ulnar, radial, basilic and upper cephalic veins were evaluated. Flow was assessed with color Doppler, compressibility, assessment of phasic flow and augmentation response. Report prepared by Nav Joseph, DEVANG, RVT FINDINGS: RIGHT: 1. Internal Jugular Vein: Compressibility - Fully compressible: Thrombus - None : Flow - Phasic 2. Subclavian Vein:Compressibility - Fully compressible: Thrombus - None : Flow - Phasic 3. Axillary Vein: Compressibility - Fully compressible: Thrombus - None 4. Brachial Vein: Compressibility - Fully compressible: Thrombus - None 5. Ulnar Vein:Compressibility - Fully compressible: Thrombus - None 6. Radial Vein:Compressibility - Fully compressible: Thrombus - None 7. Cephalic Vein: Compressibility - Fully compressible: thrombus - None 7.1. Upper Arm: Proximal Diameter: 0.49cm. Mid Diameter: 0.44cm. Distal Diameter: 0.46cm. Antecubital Fossa: 0.60cm. 7.2. Forearm: Proximal Diameter: 0.30cm. Mid Diameter:0.33cm. Distal Diameter: 0.33cm 8. Basilic Vein:Compressibility - Fully compressible: thrombus - None 8.1. Upper Arm:Proximal Diameter: 0.39cm. Mid Diameter: 0.36cm. Distal Diameter: 0.32cm. Antecubital Fossa: 0.33cm. 8.2. Forearm: Proximal Diameter: 0.25cm. Mid Diameter:0.21cm. Distal Diameter: 0.21cm. LEFT: 1. Internal Jugular Vein: Compressibility - Fully compressible: Thrombus - None : Flow - Phasic 2. Subclavian Vein:Compressibility - Fully compressible: Thrombus - None : Flow - Phasic 3. Axillary Vein: Compressibility - Fully compressible: Thrombus - None 4. Brachial Vein: Compressibility - Fully compressible: Thrombus - None 5. Ulnar Vein:Compressibility - Fully compressible: Thrombus - None 6. Radial Vein:Compressibility - Fully compressible: Thrombus - None 7. Cephalic Vein: Compressibility - Fully compressible: thrombus - None 7.1. Upper Arm: Proximal Diameter: 0.36cm. Mid Diameter: 0.39cm. Distal Diameter: 0.41cm. Antecubital Fossa: 0.48cm. 7.2. Forearm: Proximal Diameter: 0.32cm. Mid Diameter:0.26cm. Distal Diameter: 0.30cm 8. Basilic Vein:Compressibility - Fully compressible: thrombus - None 8.1. Upper Arm:Proximal Diameter: 0.38cm. Mid Diameter: 0.38cm. Distal Diameter: 0.38cm. Antecubital Fossa: 0.27cm. 8.2. Forearm: Proximal Diameter: 0.16cm. Mid Diameter:0.17cm. Distal Diameter: 0.21cm. OTHER FINDINGS: Right: None. Left: None. IMPRESSION: Right: Diameter measurements of the right cephalic vein is measured between 0.30 cm and 0.60 cm and basilic vein is measured between 0.21 cm and 0.39 cm. Left: Diameter measurements of the left cephalic vein is measured between 0.26 cm and 0.48 cm and basilic vein is measured between 0.16cm and 0.38cm.
[2017-05-26] MEDS ORDERED: Sodium Chloride 0.9% 1,000 ML IV ONE (12:00)
[2017-05-26] MEDS ORDERED: Propofol 10 mg/ml Inj (20 ML) ONE (12:00)
--- NOTE | 2017-05-26 12:50 | CP.PCM.PN ---
Subjective - Date & Time of Evaluation Date of Evaluation: 05/26/17 Time of Evaluation: 12:49 - Subjective Subjective: pt couldnt be examined, in procedure-permcath placement labs and chart reviewed pd fluid not obtained for culture Objective - Vital Signs/Intake and Output Vital Signs (last 24 hours): Temp Pulse Resp BP Pulse Ox 97.0 F L 55 L 20 163/78 H 99 05/26/17 10:47 05/26/17 10:47 05/26/17 10:47 05/26/17 10:47 05/26/17 10:47 Intake and Output: 05/26/17 05/26/17 06:59 18:59 Intake Total 450 Balance 450 - Medications Medications: Current Medications Amlodipine Besylate (Norvasc) 10 mg PO DAILY [facility] Last Admin: 05/26/17 10:56 Dose: 10 mg Aspirin (Ecotrin) 81 mg PO DAILY [facility] Last Admin: 05/26/17 10:55 Dose: 81 mg Cinacalcet (Sensipar) 30 mg PO DAILY [facility] Last Admin: 05/26/17 10:59 Dose: 30 mg Clonidine HCl (Catapres) 0.2 mg PO BID [facility] Last Admin: 05/26/17 10:55 Dose: 0.2 mg Diclofenac Sodium (Voltaren) 75 mg PO BID PRN PRN Reason: Pain, moderate (4-7) Escitalopram Oxalate (Lexapro) 10 mg PO HS [facility] Last Admin: 05/25/17 21:04 Dose: 10 mg Ferrous Sulfate (Feosol) 325 mg PO DAILY [facility] Last Admin: 05/26/17 10:56 Dose: 325 mg Hydromorphone HCl (Dilaudid) 0.5 mg IVP Q4H PRN PRN Reason: Pain, severe (8-10) Last Admin: 05/26/17 05:21 Dose: 0.5 mg Cefazolin Sodium 500 mg/ (Sodium Chloride) 100 mls @ 100 mls/hr IVPB Q8H [facility] Last Admin: 05/26/17 05:17 Dose: 100 mls/hr Lisinopril (Zestril) 20 mg PO DAILY [facility] Last Admin: 05/26/17 10:56 Dose: 20 mg Ondansetron HCl (Zofran Inj) 4 mg IVP Q4 PRN PRN Reason: Nausea/Vomiting - Labs Labs: 05/25/17 07:42 05/25/17 07:42 Assessment and Plan (1) Abdominal pain Status: Acute (2) Hypertension Status: Acute (3) Hypertensive chronic kidney disease with stage 5 chronic kidney disease or end stage renal disease Status: Acute (4) Peritonitis Status: Acute - Assessment and Plan (Free Text) Assessment: presumed peritonitis pt switched to hd, treatment today after permcath
[2017-05-26] MEDS ORDERED: HYDROmorphone 0.5 mg/0.5 ml ISec IVP PRN (13:10)
[2017-05-26] MEDS ORDERED: Oxycodone/Acetaminophen 5/325 mg Tab PO PRN (13:11)
--- NOTE | 2017-05-26 13:15 | PCM.SURG1 ---
Surgeon's Initial Post Op Note - Surgeon's Notes Surgeon: Dr. Burgos Car Lot Attendant: King PGY1 Type of Anesthesia: General Mask Anesthesia Administered By: Dr. Casper Pre-Operative Diagnosis: ESRD, peritoneal catheter infection/peritonitis requring HD Operative Findings: see operative report Post-Operative Diagnosis: ESRD, peritoneal catheter infection/peritonitis requring HD Operation Performed: R IJ Permacath insertion Specimen/Specimens Removed: N/A Estimated Blood Loss: EBL {In ML}: 20 Blood Products Given: N/A Drains Used: No Drains Post-Op Condition: Good Date of Surgery/Procedure: 05/26/17 Time of Surgery/Procedure: 12:15
--- NOTE | 2017-05-26 13:28 | CP.PCM.PN ---
Subjective - Date & Time of Evaluation Date of Evaluation: 05/26/17 Time of Evaluation: 13:28 Objective - Vital Signs/Intake and Output Vital Signs (last 24 hours): Temp Pulse Resp BP Pulse Ox 97.0 F L 55 L 20 163/78 H 99 05/26/17 10:47 05/26/17 10:47 05/26/17 10:47 05/26/17 10:47 05/26/17 10:47 Intake and Output: 05/26/17 05/26/17 06:59 18:59 Intake Total 450 Balance 450 - Medications Medications: Current Medications Amlodipine Besylate (Norvasc) 10 mg PO DAILY [facility] Last Admin: 05/26/17 10:56 Dose: 10 mg Aspirin (Ecotrin) 81 mg PO DAILY [facility] Last Admin: 05/26/17 10:55 Dose: 81 mg Cinacalcet (Sensipar) 30 mg PO DAILY [facility] Last Admin: 05/26/17 10:59 Dose: 30 mg Clonidine HCl (Catapres) 0.2 mg PO BID [facility] Last Admin: 05/26/17 10:55 Dose: 0.2 mg Diclofenac Sodium (Voltaren) 75 mg PO BID PRN PRN Reason: Pain, moderate (4-7) Escitalopram Oxalate (Lexapro) 10 mg PO HS [facility] Last Admin: 05/25/17 21:04 Dose: 10 mg Ferrous Sulfate (Feosol) 325 mg PO DAILY [facility] Last Admin: 05/26/17 10:56 Dose: 325 mg Hydromorphone HCl (Dilaudid) 0.5 mg IVP Q4H PRN PRN Reason: Pain, severe (8-10) Last Admin: 05/26/17 05:21 Dose: 0.5 mg Hydromorphone HCl (Dilaudid) 0.5 mg IVP Q10M PRN PRN Reason: Pain, moderate (4-7) Stop: 05/26/17 15:11 Last Admin: 05/26/17 13:24 Dose: 0.5 mg Cefazolin Sodium 500 mg/ (Sodium Chloride) 100 mls @ 100 mls/hr IVPB Q8H [facility] Last Admin: 05/26/17 05:17 Dose: 100 mls/hr Sodium Chloride (Sodium Chloride 0.9%) 1,000 mls @ 50 mls/hr IV .Q20H [facility] Lisinopril (Zestril) 20 mg PO DAILY [facility] Last Admin: 05/26/17 10:56 Dose: 20 mg Metoclopramide HCl (Reglan) 10 mg IVP ONCE PRN PRN Reason: Nausea/Vomiting Stop: 05/26/17 15:12 Ondansetron HCl (Zofran Inj) 4 mg IVP Q4 PRN PRN Reason: Nausea/Vomiting Oxycodone/Acetaminophen (Percocet 5/325 Mg Tab) 1 tab PO Q4H PRN PRN Reason: Pain, moderate (4-7) Stop: 05/29/17 13:12 - Labs Labs: 05/25/17 07:42 05/25/17 07:42
--- NOTE | 2017-05-26 13:38 | RAD ---
HISTORY: s/p permacath COMPARISON: 05/25/2017 FINDINGS: LUNGS: Interval right dialysis catheter insertion tip right atrium. No pneumothorax appreciated. PLEURA: No significant pleural effusion identified, no pneumothorax apparent. CARDIOVASCULAR: Mild cardiomegaly. Central pulmonary venous congestion -interval increased OSSEOUS STRUCTURES: Leftward thoracic spine positioning VISUALIZED UPPER ABDOMEN: Prior faint radiolucency right subdiaphragmatic -not now appreciated Other Findings None. IMPRESSION: Interval right dialysis catheter insertion. No pneumothorax
--- NOTE | 2017-05-26 13:43 | OP ---
PROCEDURE DATE: 05/26/2017 PREOPERATIVE DIAGNOSIS: Renal failure. POSTOPERATIVE DIAGNOSIS: Renal failure. PROCEDURE CARRIED OUT: Placement of PermCath in right jugular vein with C-arm fluoroscopy with ultrasound-guided puncture and micropuncture technique. SURGEON: Mina Burgos Jr., MD. FIELD TRAINING AGENT: Dr. Lasha Malik. TYPE OF ANESTHESIA: Local with sedation. ANESTHESIA ADMINISTERED BY: Frances Casper MD. INDICATIONS: A 36-year-old woman, now on peritoneal dialysis, presents with possible catheter infection, peritonitis. This was recommended that she undergo removal of the peritoneal dialysis catheter with treatment with antibiotics initially and placement of a PermCath. OPERATIVE FINDINGS: The patient had previously had a catheter in the jugular vein. However, this vein was still patent on ultrasound exam and measured approximately 14 mm. The rest of the intraoperative findings were unremarkable. DESCRIPTION OF PROCEDURE: The patient was given local anesthesia. Using ultrasound guidance and micropuncture technique, the right jugular vein was cannulated. Under fluoroscopic control, a fine guidewire was inserted centrally. This was exchanged through a catheter for an 0.035 wire and then a catheter and the sheath delivery system was delivered into the appropriate position. This was then brought out on the chest wall and the tunneled catheter positioned and secured to the skin. This was checked for flow and it was excellent in both directions. Catheter was then secured and the procedure was terminated, flushed with heparinized saline. Blood loss was 20 mL. Operation carried out, PermCath of right jugular vein with C-arm fluoroscopy and ultrasound-guided puncture. Catheter originated out on the right chest wall, went through the jugular vein to the superior vena cava. Ultrasound images of the neck showed the vein was 14 mm in diameter with normal compressibility and no other evidence of intraluminal thrombosis. Mina Burgos Jr., MD
--- NOTE | 2017-05-26 18:09 | RAD ---
PROCEDURE: Fluoroscopy up to 1 hr. HISTORY: RENAL FAILURE COMPARISON: None TECHNIQUE: Standard protocol for this study/examination. FINDINGS: Total fluoroscopic time (continuous mode) utilized during the procedure: 52.0 seconds IMPRESSION: Less than 1 hr fluoroscopic time utilized during performance of the procedure.
[2017-05-26 23:13] LABS: BODY FLUID TYPE PERITONEAL
[2017-05-26 23:58] LABS: BF GROSS APPEARANCE SL CLOUDY (CLEAR)
[2017-05-26 23:59] LABS: BODY FLUID MONO/MACROPHAGE 10 % (0-0)
[2017-05-27] LABS: BODY FLUID TOTAL COUNT 100 (0-0)
--- NOTE | 2017-05-27 00:14 | CARD ---
APPROVED REPORT EKG Measurement Heart [id number] [id number] <Conclusion> Normal sinus rhythm Possible Left atrial enlargement Left ventricular hypertrophy with repolarization abnormality Abnormal ECG
--- NOTE | 2017-05-27 08:27 | CP.PCM.PN ---
Subjective - Date & Time of Evaluation Date of Evaluation: 05/27/17 Time of Evaluation: 08:25 - Subjective Subjective: pain at permcath no abdominal pain HD today no chest pain no rash good appetite no arthralgias no urinary issues no fever no headache no sore throat Objective - Vital Signs/Intake and Output Vital Signs (last 24 hours): Temp Pulse Resp BP Pulse Ox 98.4 F 59 L 20 112/67 100 05/27/17 08:00 05/27/17 08:00 05/27/17 08:00 05/27/17 08:00 05/27/17 08:00 Intake and Output: 05/27/17 05/27/17 06:59 18:59 Intake Total 820 Balance 820 - Medications Medications: Current Medications Amlodipine Besylate (Norvasc) 10 mg PO DAILY [facility] Last Admin: 05/26/17 10:56 Dose: 10 mg Aspirin (Ecotrin) 81 mg PO DAILY [facility] Last Admin: 05/26/17 10:55 Dose: 81 mg Cinacalcet (Sensipar) 30 mg PO DAILY [facility] Last Admin: 05/26/17 10:59 Dose: 30 mg Clonidine HCl (Catapres) 0.2 mg PO BID [facility] Last Admin: 05/26/17 19:06 Dose: Not Given Diclofenac Sodium (Voltaren) 75 mg PO BID PRN PRN Reason: Pain, moderate (4-7) Escitalopram Oxalate (Lexapro) 10 mg PO HS [facility] Last Admin: 05/26/17 21:29 Dose: 10 mg Ferrous Sulfate (Feosol) 325 mg PO DAILY [facility] Last Admin: 05/26/17 10:56 Dose: 325 mg Hydromorphone HCl (Dilaudid) 0.5 mg IVP Q4H PRN PRN Reason: Pain, severe (8-10) Last Admin: 05/27/17 04:33 Dose: 0.5 mg Cefazolin Sodium 500 mg/ (Sodium Chloride) 100 mls @ 100 mls/hr IVPB Q8H [facility] Last Admin: 05/27/17 04:38 Dose: 100 mls/hr Sodium Chloride (Sodium Chloride 0.9%) 1,000 mls @ 50 mls/hr IV .Q20H [facility] Lisinopril (Zestril) 20 mg PO DAILY [facility] Last Admin: 05/26/17 10:56 Dose: 20 mg Ondansetron HCl (Zofran Inj) 4 mg IVP Q4 PRN PRN Reason: Nausea/Vomiting Oxycodone/Acetaminophen (Percocet 5/325 Mg Tab) 1 tab PO Q4H PRN PRN Reason: Pain, moderate (4-7) Stop: 05/29/17 13:12 - Labs Labs: 05/25/17 07:42 05/25/17 07:42 - Constitutional Appears: Non-toxic, No Acute Distress - Head Exam Head Exam: ATRAUMATIC - Eye Exam Eye Exam: EOMI - ENT Exam ENT Exam: Mucous Membranes Moist, Normal Exam - Neck Exam Neck Exam: Full ROM. absent: Lymphadenopathy - Respiratory Exam Respiratory Exam: absent: Accessory Muscle Use, Chest Wall Tenderness - Cardiovascular Exam Cardiovascular Exam: REGULAR RHYTHM - GI/Abdominal Exam GI & Abdominal Exam: Soft. absent: Tenderness Additional comments: PD catheter - Extremities Exam Extremities Exam: absent: Pedal Edema Assessment and Plan - Assessment and Plan (Free Text) Assessment: peritonitis continue AB d/c PD cath needs TRACEY consider ID consult
--- NOTE | 2017-05-27 12:27 | CP.PCM.PN ---
Subjective - Date & Time of Evaluation Date of Evaluation: 05/27/17 Time of Evaluation: 12:27 Objective - Vital Signs/Intake and Output Vital Signs (last 24 hours): Temp Pulse Resp BP Pulse Ox 97.7 F 64 17 136/81 99 05/27/17 09:50 05/27/17 09:50 05/27/17 09:50 05/27/17 12:20 05/27/17 09:50 Intake and Output: 05/27/17 05/27/17 06:59 18:59 Intake Total 820 Balance 820 - Medications Medications: Current Medications Amlodipine Besylate (Norvasc) 10 mg PO DAILY [facility] Last Admin: 05/27/17 10:06 Dose: Not Given Aspirin (Ecotrin) 81 mg PO DAILY [facility] Last Admin: 05/27/17 10:05 Dose: Not Given Cinacalcet (Sensipar) 30 mg PO DAILY [facility] Last Admin: 05/27/17 10:06 Dose: Not Given Clonidine HCl (Catapres) 0.2 mg PO BID [facility] Last Admin: 05/27/17 10:05 Dose: Not Given Diclofenac Sodium (Voltaren) 75 mg PO BID PRN PRN Reason: Pain, moderate (4-7) Escitalopram Oxalate (Lexapro) 10 mg PO HS [facility] Last Admin: 05/26/17 21:29 Dose: 10 mg Ferrous Sulfate (Feosol) 325 mg PO DAILY [facility] Last Admin: 05/27/17 10:06 Dose: Not Given Hydromorphone HCl (Dilaudid) 0.5 mg IVP Q4H PRN PRN Reason: Pain, severe (8-10) Last Admin: 05/27/17 04:33 Dose: 0.5 mg Cefazolin Sodium 500 mg/ (Sodium Chloride) 100 mls @ 100 mls/hr IVPB Q8H [facility] Last Admin: 05/27/17 04:38 Dose: 100 mls/hr Sodium Chloride (Sodium Chloride 0.9%) 1,000 mls @ 50 mls/hr IV .Q20H [facility] Lisinopril (Zestril) 20 mg PO DAILY [facility] Last Admin: 05/27/17 10:06 Dose: Not Given Ondansetron HCl (Zofran Inj) 4 mg IVP Q4 PRN PRN Reason: Nausea/Vomiting Oxycodone/Acetaminophen (Percocet 5/325 Mg Tab) 1 tab PO Q4H PRN PRN Reason: Pain, moderate (4-7) Stop: 05/29/17 13:12 Last Admin: 05/27/17 08:50 Dose: 1 tab - Labs Labs: 05/25/17 07:42 05/25/17 07:42
--- NOTE | 2017-05-27 14:33 | CP.PCM.PN ---
Subjective - Date & Time of Evaluation Date of Evaluation: 05/27/17 Time of Evaluation: 12:30 - Subjective Subjective: Vascular Surgery Note for Dr. Burgos Patient seen and examined at bedside. No acute event overnight. Patient is s/p permacath inserion POD#1. Patient received dialysis today. OR tomorrow for AVF creation. Patient has no complaints at this time. Objective - Vital Signs/Intake and Output Vital Signs (last 24 hours): Temp Pulse Resp BP Pulse Ox 97.9 F 59 L 17 132/87 100 05/27/17 12:50 05/27/17 12:50 05/27/17 12:50 05/27/17 12:50 05/27/17 12:50 Intake and Output: 05/27/17 05/27/17 06:59 18:59 Intake Total 820 Balance 820 - Medications Medications: Current Medications Amlodipine Besylate (Norvasc) 10 mg PO DAILY [facility] Last Admin: 05/27/17 10:06 Dose: Not Given Aspirin (Ecotrin) 81 mg PO DAILY [facility] Last Admin: 05/27/17 10:05 Dose: Not Given Cinacalcet (Sensipar) 30 mg PO DAILY [facility] Last Admin: 05/27/17 10:06 Dose: Not Given Clonidine HCl (Catapres) 0.2 mg PO BID [facility] Last Admin: 05/27/17 10:05 Dose: Not Given Diclofenac Sodium (Voltaren) 75 mg PO BID PRN PRN Reason: Pain, moderate (4-7) Escitalopram Oxalate (Lexapro) 10 mg PO HS [facility] Last Admin: 05/26/17 21:29 Dose: 10 mg Ferrous Sulfate (Feosol) 325 mg PO DAILY [facility] Last Admin: 05/27/17 10:06 Dose: Not Given Hydromorphone HCl (Dilaudid) 0.5 mg IVP Q4H PRN PRN Reason: Pain, severe (8-10) Last Admin: 05/27/17 13:11 Dose: 0.5 mg Cefazolin Sodium 500 mg/ (Sodium Chloride) 100 mls @ 100 mls/hr IVPB Q8H [facility] Last Admin: 05/27/17 13:14 Dose: 100 mls/hr Sodium Chloride (Sodium Chloride 0.9%) 1,000 mls @ 50 mls/hr IV .Q20H [facility] Lisinopril (Zestril) 20 mg PO DAILY [facility] Last Admin: 05/27/17 10:06 Dose: Not Given Ondansetron HCl (Zofran Inj) 4 mg IVP Q4 PRN PRN Reason: Nausea/Vomiting Oxycodone/Acetaminophen (Percocet 5/325 Mg Tab) 1 tab PO Q4H PRN PRN Reason: Pain, moderate (4-7) Stop: 05/29/17 13:12 Last Admin: 05/27/17 08:50 Dose: 1 tab - Labs Labs: 05/25/17 07:42 05/25/17 07:42 - Constitutional Appears: No Acute Distress - Head Exam Head Exam: ATRAUMATIC, NORMOCEPHALIC - Eye Exam Eye Exam: Normal appearance - ENT Exam ENT Exam: Mucous Membranes Moist - Neck Exam Additional comments: r permacath dressing clean dry and intact without bleeding - Respiratory Exam Respiratory Exam: NORMAL BREATHING PATTERN - Cardiovascular Exam Cardiovascular Exam: REGULAR RHYTHM - GI/Abdominal Exam GI & Abdominal Exam: Soft, Normal Bowel Sounds. absent: Tenderness - Extremities Exam Extremities Exam: Normal Capillary Refill - Back Exam Back Exam: CVA tenderness (L), CVA tenderness (R) - Neurological Exam Neurological Exam: Alert, Awake, Oriented x3 - Psychiatric Exam Psychiatric exam: Normal Affect, Normal Mood - Skin Skin Exam: Dry, Intact, Normal Color, Warm Assessment and Plan - Assessment and Plan (Free Text) Plan: 36 F with ESRD, peritoneal catheter infection and peritonitis, s/p permacath insertion POD#1 -NPO past MN -OR tomorrow for AVF creation -HD MWF -Discussed with Dr. Loretta Malik PGY1
--- NOTE | 2017-05-27 15:56 | CP.PCM.CON ---
History of Present Illness - History of Present Illness History of Present Illness: 36 F with PMH of htn and peritoneal dialysis for CKD was admitted for abd pain. Hx recurrent SBP on PD going for AV fistula PMD: Dr. Denis Orr PMH: HTN, CKD requiring peritoneal dialysis Meds: As per EMR Allergy: NKDA PSH: cholecystectomy, peritoneal dialysis catheter (2017) FH: DM, Arrythmia, Bone CA Social: current smoker - 5 cigs per day for 20 years; lives with sister; denies EtOH/illicit drug use; unemployed Review of Systems - Constitutional Constitutional: As Per HPI, Anorexia, Fever, Malaise - EENT Eyes: absent: As Per HPI, Blind Spots, Blurred Vision, Change in Vision, Decreased Night Vision, Diplopia, Discharge, Dry Eye, Exophthalmos, Floaters, Irritation, Itchy Eyes, Loss of Peripheral Vision, Pain, Photophobia, Requires Corrective Lenses, Sees Flashes, Spots in Vision, Tunnel Vision, Other Visual Disturbances, Loss of Vision, Other Ears: absent: As Per HPI, Decreased Hearing, Ear Discharge, Ear Pain, Tinnitus, Abnormal Hearing, Disequilibrium, Dizziness, Other Nose/Mouth/Throat: absent: As Per HPI, Epistaxis, Nasal Congestion, Nasal Discharge, Nasal Obstruction, Nasal Trauma, Nose Pain, Post Nasal Drip, Sinus Pain, Sinus Pressure, Bleeding Gums, Change in Voice, Dental Pain, Dry Mouth, Dysphagia, Halitosis, Hoarsness, Lip Swelling, Mouth Lesions, Mouth Pain, Odynophagia, Sore Throat, Throat Swelling, Tongue Swelling, Facial Pain, Neck Pain, Neck Mass, Other - Breasts Breasts: absent: As Per HPI, Change in Shape, Mass, Pain, Nipple Discharge, Nipple Inversion, Skin Changes, Swelling, Other - Cardiovascular Cardiovascular: absent: As Per HPI, Acrocyanosis, Chest Pain, Chest Pain at Rest , Chest Pain with Activity, Claudication, Diaphoresis, Dyspnea, Dyspnea on Exertion, Edema, Irregular Heart Rhythm, Pain Radiating to Arm/Neck/Jaw, Leg Edema, Leg Ulcers, Lightheadedness, Orthopnea, Palpitations, Paroxysmal Nocturnal Dyspnea, Pedal Edema, Radiating Pain, Rapid Heart Rate, Slow Heart Rate, Syncope, Other - Respiratory Respiratory: absent: As Per HPI, Cough, Dyspnea, Hemoptysis, Dyspnea on Exertion , Wheezing, Snoring, Stridor, Pain on Inspiration, Chest Congestion, Excessive Mucous Production, Change in Mucous Color, Pain with Coughing, Other - Gastrointestinal Gastrointestinal: As Per HPI - Genitourinary Genitourinary: absent: As Per HPI, Change in Urinary Stream, Difficulty Urinating, Dysuria, Flank Pain, Hematuria, Pyuria, Nocturia, Urinary Incontinence, Urinary Frequency, Urinary Hesitance, Urinary Urgency, Voiding Freq/Small Amts, Freq UTI, Hx Renal/Bladder Calculi, Hx /Renal Surgery, Bladder Distension, Other - Reproductive: Female Reproductive:Female: absent: As Per HPI, Amenorrhea, Amenorrhea/ Control, Currently Menstual, Cycle <21 Days, Cycle >35 Days, Cycle Variable, Menses 1-7 Days, Menses >/= 8 Days, Menses Variable, Cycle > 4 Weeks Between, No Menses for 6 Months, Heavy Menses, Light Menses, Normal Menses, Spotting Between Cycles , S/P Hysterectomy, Menopausal, Post Menopausal, Premenarche, Abnormal Vaginal Bleeding, Dysmenorrhea, Dyspareunia, Genital Lesions, Genital Pruritis, Pelvic Pain, Prolapse Symptoms, Sexual Dysfunction, Vaginal Discharge, Vaginal Dryness , Vaginal Odor, Vaginal Pruritis, Other - Menstruation Menstruation: absent: As Per HPI, Amenorrhea, Amenorrhea/ Control, Currently Menstual, Cycle <21 Days, Cycle >35 Days, Cycle Variable, Menses 1-7 Days, Menses >/= 8 Days, Menses Variable, Cycle > 4 Weeks Between, No Menses for 6 Months, Heavy Menses, Light Menses, Normal Menses, Spotting Between Cycles , S/P Hysterectomy, Menopausal, Post Menopausal, Premenarche, Abnormal Vaginal Bleeding, Dysmenorrhea, Other - Musculoskeletal Musculoskeletal: absent: As Per HPI, Abnormal Gait, Arthralgias, Atrophy, Back Pain, Deformity, Joint Swelling, Limited Range of Motion, Loss of Height, Muscle Cramps, Muscle Weakness, Myalgias, Neck Pain, Numbness, Radiating Pain into Limb, Stiffness, Tingling, Other - Integumentary Integumentary: absent: As Per HPI, Acne, Alopecia, Bleeding Lesions, Change in Hair, Change in Nails, Change in Pigmentation, Changing Lesions, Dry Skin, Erythema, Furuncle, Hirsutism, Lesions, New Lesions, Non-Healing Lesions, Photosensitivity, Pruritus, Rash, Skin Pain, Skin Ulcer, Sores, Striae, Swelling , Unusual Bruising, Wounds, Jaundice, Other - Neurological Neurological: absent: As Per HPI, Abnormal Gait, Abnormal Hearing, Abnormal Movements, Abnormal Speech, Behavioral Changes, Burning Sensations, Confusion, Convulsions, Disequilibrium, Dizziness, Numbness, Focal Weakness, Frequent Falls , Headaches, Lack of Coordination, Loss of Vision, Memory Loss, Paresthesias, Radicular Pain, Restless Legs, Sensory Deficit, Syncope, Tingling, Tremor, Vertigo, Weakness, Other Visual Disturbances, Other - Psychiatric Psychiatric: absent: As Per HPI, Abnormal Sleep Pattern, Anhedonia, Anxiety, Auditory Hallucinations, Behavioral Changes, Change in Appetite, Change in Libido, Confusion, Depression, Difficulty Concentrating, Hallucinations, Homicidal Ideation, Hopelessness, Irritability, Memory Loss, Mood Swings, Panic Attacks, Paranoia, Suicidal Ideation, Visual Hallucinations, Tactile Hallucinations, Other - Endocrine Endocrine: absent: As Per HPI, Change in Body Appearance, Change in Libido, Cold Intolorance, Deepening of Voice, Excessive Sweating, Fatigue, Flushing, Heat Intolorance, Increase in Ring/Shoe/Hat Size, Palpitations, Polydipsia, Polyphagia, Polyuria, Other - Hematologic/Lymphatic Hematologic: absent: As Per HPI, Easy Bleeding, Easy Bruising, Lymphadenopathy, Other Past Patient History - Past Medical History & Family History Past Medical History?: Yes - Past Social History Smoking Status: Light Smoker < 10 Cigarettes Daily - CARDIAC Hx Congestive Heart Failure: Yes Hx Hypertension: Yes - PULMONARY Hx Respiratory Disorders: No - NEUROLOGICAL Hx Neurological Disorder: No - HEENT Hx HEENT Problems: No - RENAL Hx Chronic Kidney Disease: Yes Hx Kidney Stones: Yes (left) - ENDOCRINE/METABOLIC Hx Endocrine Disorders: No - HEMATOLOGICAL/ONCOLOGICAL Hx Anemia: Yes - INTEGUMENTARY Hx Dermatological Problems: No - MUSCULOSKELETAL/RHEUMATOLOGICAL Hx Falls: No - GASTROINTESTINAL Hx Gastrointestinal Disorders: No - GENITOURINARY/GYNECOLOGICAL Hx Genitourinary Disorders: No - PSYCHIATRIC Hx Substance Use: No - SURGICAL HISTORY Hx Cholecystectomy: Yes - ANESTHESIA Hx Anesthesia: Yes Hx Anesthesia Reactions: No Hx Malignant Hyperthermia: No Meds Allergies/Adverse Reactions: Allergies Allergy/AdvReac Type Severity Reaction Status Date / Time No Known Allergies Allergy Verified 05/25/17 07:12 - Medications Medications: Current Medications Amlodipine Besylate (Norvasc) 10 mg PO DAILY [facility] Last Admin: 05/27/17 10:06 Dose: Not Given Aspirin (Ecotrin) 81 mg PO DAILY [facility] Last Admin: 05/27/17 10:05 Dose: Not Given Cinacalcet (Sensipar) 30 mg PO DAILY [facility] Last Admin: 05/27/17 10:06 Dose: Not Given Clonidine HCl (Catapres) 0.2 mg PO BID [facility] Last Admin: 05/27/17 10:05 Dose: Not Given Diclofenac Sodium (Voltaren) 75 mg PO BID PRN PRN Reason: Pain, moderate (4-7) Escitalopram Oxalate (Lexapro) 10 mg PO HS [facility] Last Admin: 05/26/17 21:29 Dose: 10 mg Ferrous Sulfate (Feosol) 325 mg PO DAILY [facility] Last Admin: 05/27/17 10:06 Dose: Not Given Hydromorphone HCl (Dilaudid) 0.5 mg IVP Q4H PRN PRN Reason: Pain, severe (8-10) Last Admin: 05/27/17 13:11 Dose: 0.5 mg Cefazolin Sodium 500 mg/ (Sodium Chloride) 100 mls @ 100 mls/hr IVPB Q8H [facility] Last Admin: 05/27/17 13:14 Dose: 100 mls/hr Sodium Chloride (Sodium Chloride 0.9%) 1,000 mls @ 50 mls/hr IV .Q20H [facility] Lisinopril (Zestril) 20 mg PO DAILY [facility] Last Admin: 05/27/17 10:06 Dose: Not Given Ondansetron HCl (Zofran Inj) 4 mg IVP Q4 PRN PRN Reason: Nausea/Vomiting Oxycodone/Acetaminophen (Percocet 5/325 Mg Tab) 1 tab PO Q4H PRN PRN Reason: Pain, moderate (4-7) Stop: 05/29/17 13:12 Last Admin: 05/27/17 08:50 Dose: 1 tab Physical Exam - Constitutional Appears: Non-toxic, Chronically Ill - Head Exam Head Exam: NORMOCEPHALIC - Eye Exam Eye Exam: PERRL. absent: Scleral icterus - ENT Exam ENT Exam: Mucous Membranes Dry, Normal External Ear Exam - Neck Exam Neck exam: Negative for: Lymphadenopathy - Respiratory Exam Respiratory Exam: Decreased Breath Sounds, Rhonchi - Cardiovascular Exam Cardiovascular Exam: REGULAR RHYTHM, +S1, +S2 - GI/Abdominal Exam GI & Abdominal Exam: Diminished Bowel Sounds, Soft. absent: Tenderness - Rectal Exam Rectal Exam: Deferred - Exam Exam: NORMAL INSPECTION - Extremities Exam Extremities exam: Negative for: pedal edema - Back Exam Back exam: absent: CVA tenderness (L), CVA tenderness (R) - Neurological Exam Neurological exam: Alert, CN II-XII Intact, Oriented x3, Reflexes Normal - Psychiatric Exam Psychiatric exam: Normal Affect - Skin Skin Exam: Dry Results - Vital Signs Recent Vital Signs: Last Vital Signs Temp 97.9 F 05/27/17 12:50 Pulse 59 L 05/27/17 12:50 Resp 17 05/27/17 12:50 BP 132/87 05/27/17 12:50 Pulse Ox 100 05/27/17 12:50 - Labs Result Diagrams: 05/25/17 07:42 05/25/17 07:42 Labs: Laboratory Results - last 24 hr 05/26/17 23:12 Fluid Source Peritoneal Fluid Appearance Sl cloudy Fluid WBC 999.0 H Fluid RBC 459.0 H Fluid Tot Cell Count 100 H Fluid Neutrophils 21.0 H Fluid Lymphocytes 3.0 H Fld Monocyte/Macrophag 10 H Fluid Comment Assessment & Plan (1) Abdominal pain Status: Acute (2) Hypertension Status: Acute (3) Intractable abdominal pain Status: Acute (4) Nausea & vomiting Status: Acute (5) Peritonitis Status: Acute (6) Acute peritonitis Status: Acute (7) ESRD (end stage renal disease) Status: Acute - Assessment and Plan (Free Text) Assessment: cont iv antibiotics await cultures
[2017-05-28] MEDS: Sodium Chloride 0.9% 1,000 ML IV SCH ×2 (02:41→05:30)
[2017-05-28 05:55] LABS: PROTHROMBIN TIME 11.6 SECONDS (9.7-12.2)
[2017-05-28] MEDS ORDERED: HEPARIN-NS 5,000 UNITS/500 ML 5,000 UNIT/500 ML BAG IV ONE (07:07)
[2017-05-28] MEDS ORDERED: ceFAZolin IV 1 gm in Dextrose 1 GM/50 ML BAG IVPB ONE (07:30)
[2017-05-28] MEDS ORDERED: Sodium Chloride 0.9% 1,000 ML IV ONE (07:45)
[2017-05-28] MEDS ORDERED: Propofol 10 mg/ml Inj (20 ML) ONE (07:51)
[2017-05-28] MEDS ORDERED: Midazolam 2 MG/2 ML VIAL ONE ×2 (07:51→07:52)
[2017-05-28] MEDS ORDERED: Albuterol 0.083% Inhal Sol (2.5 mg/3 mL) UD INH PRN (09:06)
[2017-05-28] MEDS ORDERED: HYDROmorphone 0.5 mg/0.5 ml ISec IVP PRN (09:06)
[2017-05-28] MEDS ORDERED: Midazolam 2 MG/2 ML VIAL IVP PRN (09:06)
[2017-05-28] MEDS ORDERED: Morphine 4 MG/ML VIAL ONE (09:11)
--- NOTE | 2017-05-28 10:07 | PCM.SURG1 ---
Surgeon's Initial Post Op Note - Surgeon's Notes Surgeon: Loretta Er Medical Technician: PGY4 Type of Anesthesia: General Endo Pre-Operative Diagnosis: ESRD, peritoneal dialysis catheter infection Operative Findings: PD cath removed in its entirety Post-Operative Diagnosis: ESRD, peritoneal dialysis catheter infection Operation Performed: 1. Left AV fistula creation. 2. Removal of peritoneal dialysis catheter Specimen/Specimens Removed: PD cath tip Estimated Blood Loss: EBL {In ML}: 20 Blood Products Given: N/A Drains Used: No Drains Post-Op Condition: Good Date of Surgery/Procedure: 05/28/17 Time of Surgery/Procedure: 07:50
--- NOTE | 2017-05-28 10:25 | OP ---
PROCEDURE DATE: 05/28/2017 PREOPERATIVE DIAGNOSIS: Renal failure. POSTOPERATIVE DIAGNOSIS: Renal failure. PROCEDURE CARRIED OUT: Brachiocephalic fistula, left elbow. SURGEON: Mina Burgos Jr., MD. JOY OPERATOR HELPER: Dr. Bentley. ANESTHESIA ADMINISTERED BY: Alcira Millard CRNA. INDICATIONS: The patient is an young woman with renal insufficiency, previously on peritoneal dialysis, now requiring hemodialysis. PermCath was inserted previously. Now, we are creating a fistula in the left arm. We were able to carry out a fistula between the brachial artery and the adjacent cephalic vein. This was an end-to-side fistula using loop magnification, spatulated technique and heparin anticoagulation. At the end of the procedure, there was a pulse at the wrist and there was good flow through the fistula. Blood loss was 20 mL. DESCRIPTION OF PROCEDURE: The patient was given local anesthesia. The vein and artery were mobilized. An end-to-side anastomosis in a spatulated fashion was carried out. After this had been done, everything looked very good with a pulse at the wrist and good flow through the fistula. After the wound was closed with subcuticular 5 nylon sutures, the procedure was terminated. We then turned our attention to the previously placed peritoneal dialysis catheter. We reprepped and redraped. Removed the catheter by making multiple incisions. The entire catheter was removed. The tip at the request of Dr. Perez was sent for culture and the procedure was terminated. Blood loss of both procedures was less than 20 mL. Operation carried out are, 1. Brachiocephalic fistula, left elbow. 2. Removal of Tenckhoff peritoneal dialysis catheter. Mina Burgos Jr., MD
--- NOTE | 2017-05-28 10:43 | CP.PCM.PN ---
Subjective - Date & Time of Evaluation Date of Evaluation: 05/28/17 Time of Evaluation: 10:40 - Subjective Subjective: s/p left AV fistula placement PD cath removed stable dialysis 05/27- UF 2000ml post-op stable Objective - Vital Signs/Intake and Output Vital Signs (last 24 hours): Temp Pulse Resp BP Pulse Ox 99.1 F 48 L 20 155/81 H 99 05/28/17 07:19 05/28/17 07:19 05/28/17 07:19 05/28/17 07:19 05/28/17 07:19 Intake and Output: 05/28/17 05/28/17 06:59 18:59 Intake Total 900 Balance 900 - Medications Medications: Current Medications Albuterol Sulfate (Albuterol 0.083% Inhal Qian (2.5 Mg/3 Ml) Ud) 2.5 mg INH ONCE PRN PRN Reason: Wheezing Amlodipine Besylate (Norvasc) 10 mg PO DAILY [facility] Last Admin: 05/28/17 09:19 Dose: Not Given Aspirin (Ecotrin) 81 mg PO DAILY [facility] Last Admin: 05/28/17 09:18 Dose: Not Given Cinacalcet (Sensipar) 30 mg PO DAILY [facility] Last Admin: 05/28/17 09:19 Dose: Not Given Clonidine HCl (Catapres) 0.2 mg PO BID [facility] Last Admin: 05/28/17 09:18 Dose: Not Given Diclofenac Sodium (Voltaren) 75 mg PO BID PRN PRN Reason: Pain, moderate (4-7) Escitalopram Oxalate (Lexapro) 10 mg PO HS [facility] Last Admin: 05/27/17 21:17 Dose: 10 mg Ferrous Sulfate (Feosol) 325 mg PO DAILY [facility] Last Admin: 05/28/17 09:19 Dose: Not Given Hydromorphone HCl (Dilaudid) 0.5 mg IVP Q4H PRN PRN Reason: Pain, severe (8-10) Last Admin: 05/28/17 02:37 Dose: 0.5 mg Hydromorphone HCl (Dilaudid) 0.5 mg IVP Q5M PRN PRN Reason: Pain, moderate (4-7) Stop: 05/28/17 11:06 Cefazolin Sodium 500 mg/ (Sodium Chloride) 100 mls @ 100 mls/hr IVPB Q8H [facility] Last Admin: 05/28/17 05:30 Dose: 100 mls/hr Sodium Chloride (Sodium Chloride 0.9%) 1,000 mls @ 50 mls/hr IV .Q20H [facility] Last Admin: 05/28/17 05:30 Dose: Not Given Lisinopril (Zestril) 20 mg PO DAILY [facility] Last Admin: 05/28/17 09:20 Dose: Not Given Metoclopramide HCl (Reglan) 10 mg IVP ONCE PRN PRN Reason: Nausea/Vomiting Stop: 05/28/17 11:06 Midazolam HCl (Versed Inj) 2 mg IVP ONCE PRN PRN Reason: Agitation/Restlessness Ondansetron HCl (Zofran Inj) 4 mg IVP Q4 PRN PRN Reason: Nausea/Vomiting Ondansetron HCl (Zofran Inj) 4 mg IVP ONCE PRN PRN Reason: Nausea/Vomiting Stop: 05/28/17 11:06 Oxycodone/Acetaminophen (Percocet 5/325 Mg Tab) 1 tab PO Q4H PRN PRN Reason: Pain, moderate (4-7) Stop: 05/29/17 13:12 Last Admin: 05/27/17 08:50 Dose: 1 tab - Labs Labs: 05/25/17 07:42 05/25/17 07:42 PT 11.6 SECONDS (9.7-12.2) 05/28/17 05:45 INR 1.0 05/28/17 05:45 APTT 29 SECONDS (21-34) 05/28/17 05:45 - Constitutional Appears: No Acute Distress, Chronically Ill - Head Exam Head Exam: ATRAUMATIC, NORMAL INSPECTION - Eye Exam Eye Exam: EOMI, Normal appearance - Neck Exam Neck Exam: Normal Inspection. absent: Tenderness - Respiratory Exam Respiratory Exam: Clear to Ausculation Bilateral, NORMAL BREATHING PATTERN - Cardiovascular Exam Cardiovascular Exam: REGULAR RHYTHM, +S1 - GI/Abdominal Exam GI & Abdominal Exam: Soft, Tenderness - Extremities Exam Extremities Exam: Normal Inspection, Tenderness - Neurological Exam Neurological Exam: Awake, CN II-XII Intact - Skin Skin Exam: Dry, Warm Assessment and Plan (1) Hypertensive chronic kidney disease with stage 5 chronic kidney disease or end stage renal disease Status: Acute (2) Intractable abdominal pain Status: Resolved (3) End stage renal disease Status: Acute - Assessment and Plan (Free Text) Plan: Monitor post op Dialysis MWF via permcath AV F needs maturation
--- NOTE | 2017-05-28 18:45 | CP.PCM.PN ---
Subjective - Date & Time of Evaluation Date of Evaluation: 05/28/17 Time of Evaluation: 18:45 Objective - Vital Signs/Intake and Output Vital Signs (last 24 hours): Temp Pulse Resp BP Pulse Ox 98.2 F 82 20 148/95 H 98 05/28/17 15:25 05/28/17 15:25 05/28/17 15:25 05/28/17 15:25 05/28/17 15:25 Intake and Output: 05/28/17 05/28/17 06:59 18:59 Intake Total 900 600 Balance 900 600 - Medications Medications: Current Medications Albuterol Sulfate (Albuterol 0.083% Inhal Qian (2.5 Mg/3 Ml) Ud) 2.5 mg INH ONCE PRN PRN Reason: Wheezing Amlodipine Besylate (Norvasc) 10 mg PO DAILY [facility] Last Admin: 05/28/17 09:19 Dose: Not Given Aspirin (Ecotrin) 81 mg PO DAILY [facility] Last Admin: 05/28/17 09:18 Dose: Not Given Cinacalcet (Sensipar) 30 mg PO DAILY [facility] Last Admin: 05/28/17 09:19 Dose: Not Given Clonidine HCl (Catapres) 0.2 mg PO BID [facility] Last Admin: 05/28/17 17:20 Dose: 0.2 mg Diclofenac Sodium (Voltaren) 75 mg PO BID PRN PRN Reason: Pain, moderate (4-7) Escitalopram Oxalate (Lexapro) 10 mg PO HS [facility] Last Admin: 05/27/17 21:17 Dose: 10 mg Ferrous Sulfate (Feosol) 325 mg PO DAILY [facility] Last Admin: 05/28/17 09:19 Dose: Not Given Hydromorphone HCl (Dilaudid) 0.5 mg IVP Q4H PRN PRN Reason: Pain, severe (8-10) Last Admin: 05/28/17 16:28 Dose: 0.5 mg Cefazolin Sodium 500 mg/ (Sodium Chloride) 100 mls @ 100 mls/hr IVPB Q8H [facility] Last Admin: 05/28/17 13:06 Dose: 100 mls/hr Sodium Chloride (Sodium Chloride 0.9%) 1,000 mls @ 50 mls/hr IV .Q20H [facility] Last Admin: 05/28/17 05:30 Dose: Not Given Lisinopril (Zestril) 20 mg PO DAILY [facility] Last Admin: 05/28/17 09:20 Dose: Not Given Midazolam HCl (Versed Inj) 2 mg IVP ONCE PRN PRN Reason: Agitation/Restlessness Ondansetron HCl (Zofran Inj) 4 mg IVP Q4 PRN PRN Reason: Nausea/Vomiting Oxycodone/Acetaminophen (Percocet 5/325 Mg Tab) 1 tab PO Q4H PRN PRN Reason: Pain, moderate (4-7) Stop: 05/29/17 13:12 Last Admin: 05/27/17 08:50 Dose: 1 tab - Labs Labs: 05/25/17 07:42 05/25/17 07:42 PT 11.6 SECONDS (9.7-12.2) 05/28/17 05:45 INR 1.0 05/28/17 05:45 APTT 29 SECONDS (21-34) 05/28/17 05:45
--- NOTE | 2017-05-28 19:23 | CP.PCM.PN ---
Subjective - Date & Time of Evaluation Date of Evaluation: 05/28/17 Time of Evaluation: 08:00 - Subjective Subjective: feels well nad c/o pain Objective - Vital Signs/Intake and Output Vital Signs (last 24 hours): Temp Pulse Resp BP Pulse Ox 98.2 F 82 20 148/95 H 98 05/28/17 15:25 05/28/17 15:25 05/28/17 15:25 05/28/17 15:25 05/28/17 15:25 Intake and Output: 05/28/17 05/29/17 18:59 06:59 Intake Total 600 Balance 600 - Medications Medications: Current Medications Albuterol Sulfate (Albuterol 0.083% Inhal Qian (2.5 Mg/3 Ml) Ud) 2.5 mg INH ONCE PRN PRN Reason: Wheezing Amlodipine Besylate (Norvasc) 10 mg PO DAILY [facility] Last Admin: 05/28/17 09:19 Dose: Not Given Aspirin (Ecotrin) 81 mg PO DAILY [facility] Last Admin: 05/28/17 09:18 Dose: Not Given Cinacalcet (Sensipar) 30 mg PO DAILY [facility] Last Admin: 05/28/17 09:19 Dose: Not Given Clonidine HCl (Catapres) 0.2 mg PO BID [facility] Last Admin: 05/28/17 17:20 Dose: 0.2 mg Diclofenac Sodium (Voltaren) 75 mg PO BID PRN PRN Reason: Pain, moderate (4-7) Escitalopram Oxalate (Lexapro) 10 mg PO HS [facility] Last Admin: 05/27/17 21:17 Dose: 10 mg Ferrous Sulfate (Feosol) 325 mg PO DAILY [facility] Last Admin: 05/28/17 09:19 Dose: Not Given Hydromorphone HCl (Dilaudid) 0.5 mg IVP Q4H PRN PRN Reason: Pain, severe (8-10) Last Admin: 05/28/17 16:28 Dose: 0.5 mg Cefazolin Sodium 500 mg/ (Sodium Chloride) 100 mls @ 100 mls/hr IVPB Q8H [facility] Last Admin: 05/28/17 13:06 Dose: 100 mls/hr Sodium Chloride (Sodium Chloride 0.9%) 1,000 mls @ 50 mls/hr IV .Q20H [facility] Last Admin: 05/28/17 05:30 Dose: Not Given Lisinopril (Zestril) 20 mg PO DAILY [facility] Last Admin: 05/28/17 09:20 Dose: Not Given Midazolam HCl (Versed Inj) 2 mg IVP ONCE PRN PRN Reason: Agitation/Restlessness Ondansetron HCl (Zofran Inj) 4 mg IVP Q4 PRN PRN Reason: Nausea/Vomiting Oxycodone/Acetaminophen (Percocet 5/325 Mg Tab) 1 tab PO Q4H PRN PRN Reason: Pain, moderate (4-7) Stop: 05/29/17 13:12 Last Admin: 05/27/17 08:50 Dose: 1 tab - Labs Labs: 05/25/17 07:42 05/25/17 07:42 PT 11.6 SECONDS (9.7-12.2) 05/28/17 05:45 INR 1.0 05/28/17 05:45 APTT 29 SECONDS (21-34) 05/28/17 05:45 - Constitutional Appears: Non-toxic, Chronically Ill - Head Exam Head Exam: NORMOCEPHALIC - Eye Exam Eye Exam: PERRL - ENT Exam ENT Exam: Mucous Membranes Dry - Neck Exam Neck Exam: absent: Lymphadenopathy - Respiratory Exam Respiratory Exam: Decreased Breath Sounds - Cardiovascular Exam Cardiovascular Exam: REGULAR RHYTHM - GI/Abdominal Exam GI & Abdominal Exam: Distended - Rectal Exam Rectal Exam: Deferred - Exam Exam: NORMAL INSPECTION - Extremities Exam Extremities Exam: absent: Pedal Edema - Back Exam Back Exam: absent: CVA tenderness (L), CVA tenderness (R) - Neurological Exam Neurological Exam: Alert, Awake, CN II-XII Intact, Oriented x3 Assessment and Plan (1) Abdominal pain Status: Acute (2) Hypertension Status: Acute (3) Intractable abdominal pain Status: Resolved (4) Nausea & vomiting Status: Acute (5) Peritonitis Status: Acute (6) Acute peritonitis Status: Acute (7) ESRD (end stage renal disease) Status: Acute
[2017-05-29] MEDS: Sodium Chloride 0.9% 1,000 ML IV SCH ×2 (01:15→06:14)
[2017-05-29 07:48] LABS: GLUCOSE PERITONEAL FLUID 453 mg/dL; TOTAL PROTEIN PERITONEAL FLUID <3.0 g/dL
--- NOTE | 2017-05-29 12:29 | CP.PCM.PN ---
Subjective - Date & Time of Evaluation Date of Evaluation: 05/29/17 Time of Evaluation: 07:15 - Subjective Subjective: Vascular Surgery Note for Dr. Burgos Patient seen and examined at bedside. No acute event overnight. She is s/p Left AV fistula creation and Removal of peritoneal dialysis catheter POD#1. Patient states her pain is controlled. Patient is tolerating diet. She denies numbness/ tingling swelling in Left hand. Patient schedule to get dialysis today. Patient has no new complaints. Objective - Vital Signs/Intake and Output Vital Signs (last 24 hours): Temp Pulse Resp BP Pulse Ox 98.3 F 61 22 159/97 H 98 05/29/17 10:10 05/29/17 10:10 05/29/17 10:10 05/29/17 11:25 05/29/17 10:10 Intake and Output: 05/29/17 05/29/17 06:59 18:59 Intake Total 1020 Balance 1020 - Medications Medications: Current Medications Albuterol Sulfate (Albuterol 0.083% Inhal Qian (2.5 Mg/3 Ml) Ud) 2.5 mg INH ONCE PRN PRN Reason: Wheezing Amlodipine Besylate (Norvasc) 10 mg PO DAILY [facility] Last Admin: 05/29/17 10:06 Dose: Not Given Aspirin (Ecotrin) 81 mg PO DAILY [facility] Last Admin: 05/29/17 10:06 Dose: Not Given Cinacalcet (Sensipar) 30 mg PO DAILY [facility] Last Admin: 05/29/17 10:07 Dose: Not Given Clonidine HCl (Catapres) 0.2 mg PO BID [facility] Last Admin: 05/29/17 10:06 Dose: Not Given Diclofenac Sodium (Voltaren) 75 mg PO BID PRN PRN Reason: Pain, moderate (4-7) Escitalopram Oxalate (Lexapro) 10 mg PO HS [facility] Last Admin: 05/28/17 21:25 Dose: 10 mg Ferrous Sulfate (Feosol) 325 mg PO DAILY [facility] Last Admin: 05/29/17 10:06 Dose: Not Given Hydromorphone HCl (Dilaudid) 0.5 mg IVP Q4H PRN PRN Reason: Pain, severe (8-10) Last Admin: 05/29/17 09:03 Dose: 0.5 mg Cefazolin Sodium 500 mg/ (Sodium Chloride) 100 mls @ 100 mls/hr IVPB Q8H [facility] Last Admin: 05/29/17 05:07 Dose: 100 mls/hr Sodium Chloride (Sodium Chloride 0.9%) 1,000 mls @ 50 mls/hr IV .Q20H [facility] Last Admin: 05/29/17 06:14 Dose: 50 mls/hr Lisinopril (Zestril) 20 mg PO DAILY [facility] Last Admin: 05/29/17 10:07 Dose: Not Given Midazolam HCl (Versed Inj) 2 mg IVP ONCE PRN PRN Reason: Agitation/Restlessness Ondansetron HCl (Zofran Inj) 4 mg IVP Q4 PRN PRN Reason: Nausea/Vomiting Oxycodone/Acetaminophen (Percocet 5/325 Mg Tab) 1 tab PO Q4H PRN PRN Reason: Pain, moderate (4-7) Stop: 05/29/17 13:12 Last Admin: 05/27/17 08:50 Dose: 1 tab - Labs Labs: 05/25/17 07:42 05/25/17 07:42 PT 11.6 SECONDS (9.7-12.2) 05/28/17 05:45 INR 1.0 05/28/17 05:45 APTT 29 SECONDS (21-34) 05/28/17 05:45 - Constitutional Appears: No Acute Distress - Head Exam Head Exam: ATRAUMATIC, NORMOCEPHALIC - Eye Exam Eye Exam: Normal appearance - ENT Exam ENT Exam: Mucous Membranes Moist - Neck Exam Additional comments: R sided permacath - Respiratory Exam Respiratory Exam: NORMAL BREATHING PATTERN - Cardiovascular Exam Cardiovascular Exam: REGULAR RHYTHM - GI/Abdominal Exam GI & Abdominal Exam: Soft, Tenderness (at surgical site), Normal Bowel Sounds Additional comments: dressing clean dry and intact - Extremities Exam Additional comments: LUE AVF with palpable thrill and audible bruit, palpable Left radial pulse - Neurological Exam Neurological Exam: Alert, Awake, Oriented x3 - Psychiatric Exam Psychiatric exam: Normal Affect, Normal Mood - Skin Skin Exam: Dry, Intact, Normal Color, Warm Assessment and Plan - Assessment and Plan (Free Text) Plan: 36 F with ESRD and peritonitis s/p Left AV fistula creation and Removal of peritoneal dialysis catheter POD#1 -Allow AVF to mature for 6 week before using -Continue dialysis as schedule with permacath -IV antibiotics -Analgesics PRN -GI/DVT ppx -Discussed with Dr. Loretta Malik PGY1
--- NOTE | 2017-05-29 14:25 | CP.PCM.PN ---
Subjective - Date & Time of Evaluation Date of Evaluation: 05/29/17 Time of Evaluation: 14:23 - Subjective Subjective: s/p dialysis now- UF 2500ml s/p AV access- has bruit left arm PD fluids neg so far feels better; less pains Objective - Vital Signs/Intake and Output Vital Signs (last 24 hours): Temp Pulse Resp BP Pulse Ox 98.3 F 63 16 148/97 H 100 05/29/17 14:00 05/29/17 14:00 05/29/17 14:00 05/29/17 14:00 05/29/17 14:00 Intake and Output: 05/29/17 05/29/17 06:59 18:59 Intake Total 1020 Balance 1020 - Medications Medications: Current Medications Albuterol Sulfate (Albuterol 0.083% Inhal Qian (2.5 Mg/3 Ml) Ud) 2.5 mg INH ONCE PRN PRN Reason: Wheezing Amlodipine Besylate (Norvasc) 10 mg PO DAILY [facility] Last Admin: 05/29/17 12:35 Dose: 10 mg Aspirin (Ecotrin) 81 mg PO DAILY [facility] Last Admin: 05/29/17 10:06 Dose: Not Given Cinacalcet (Sensipar) 30 mg PO DAILY [facility] Last Admin: 05/29/17 10:07 Dose: Not Given Clonidine HCl (Catapres) 0.2 mg PO BID [facility] Last Admin: 05/29/17 12:36 Dose: 0.2 mg Diclofenac Sodium (Voltaren) 75 mg PO BID PRN PRN Reason: Pain, moderate (4-7) Escitalopram Oxalate (Lexapro) 10 mg PO [facility] Last Admin: 05/28/17 21:25 Dose: 10 mg Ferrous Sulfate (Feosol) 325 mg PO DAILY [facility] Last Admin: 05/29/17 10:06 Dose: Not Given Hydromorphone HCl (Dilaudid) 0.5 mg IVP Q4H PRN PRN Reason: Pain, severe (8-10) Cefazolin Sodium 500 mg/ (Sodium Chloride) 100 mls @ 100 mls/hr IVPB Q8H [facility] Last Admin: 05/29/17 14:19 Dose: 100 mls/hr Lisinopril (Zestril) 20 mg PO DAILY [facility] Last Admin: 05/29/17 14:12 Dose: 20 mg Midazolam HCl (Versed Inj) 2 mg IVP ONCE PRN PRN Reason: Agitation/Restlessness Ondansetron HCl (Zofran Inj) 4 mg IVP Q4 PRN PRN Reason: Nausea/Vomiting - Labs Labs: 05/25/17 07:42 05/25/17 07:42 PT 11.6 SECONDS (9.7-12.2) 05/28/17 05:45 INR 1.0 05/28/17 05:45 APTT 29 SECONDS (21-34) 05/28/17 05:45 - Constitutional Appears: No Acute Distress, Chronically Ill - Head Exam Head Exam: ATRAUMATIC, NORMAL INSPECTION - Eye Exam Eye Exam: EOMI, Normal appearance - Neck Exam Neck Exam: Normal Inspection. absent: Tenderness - Respiratory Exam Respiratory Exam: Clear to Ausculation Bilateral, NORMAL BREATHING PATTERN - Cardiovascular Exam Cardiovascular Exam: REGULAR RHYTHM, +S1 - GI/Abdominal Exam GI & Abdominal Exam: Soft. absent: Tenderness - Extremities Exam Extremities Exam: Normal Inspection. absent: Tenderness - Neurological Exam Neurological Exam: Alert, CN II-XII Intact - Skin Skin Exam: Dry, Warm Assessment and Plan (1) Hypertensive chronic kidney disease with stage 5 chronic kidney disease or end stage renal disease Status: Acute (2) Intractable abdominal pain Status: Resolved (3) End stage renal disease Status: Acute - Assessment and Plan (Free Text) Plan: Dialysis MWF Recheck chemistries Will need dialysis outpt at [facility]
--- NOTE | 2017-05-29 15:48 | CP.PCM.PN ---
Subjective - Date & Time of Evaluation Date of Evaluation: 05/29/17 Time of Evaluation: 15:48 Objective - Vital Signs/Intake and Output Vital Signs (last 24 hours): Temp Pulse Resp BP Pulse Ox 98.3 F 63 16 148/97 H 100 05/29/17 14:00 05/29/17 14:00 05/29/17 14:00 05/29/17 14:00 05/29/17 14:00 Intake and Output: 05/29/17 05/29/17 06:59 18:59 Intake Total 1020 880 Balance 1020 880 - Medications Medications: Current Medications Albuterol Sulfate (Albuterol 0.083% Inhal Qian (2.5 Mg/3 Ml) Ud) 2.5 mg INH ONCE PRN PRN Reason: Wheezing Amlodipine Besylate (Norvasc) 10 mg PO DAILY [facility] Last Admin: 05/29/17 12:35 Dose: 10 mg Aspirin (Ecotrin) 81 mg PO DAILY [facility] Last Admin: 05/29/17 10:06 Dose: Not Given Cinacalcet (Sensipar) 30 mg PO DAILY [facility] Last Admin: 05/29/17 10:07 Dose: Not Given Clonidine HCl (Catapres) 0.2 mg PO BID [facility] Last Admin: 05/29/17 12:36 Dose: 0.2 mg Diclofenac Sodium (Voltaren) 75 mg PO BID PRN PRN Reason: Pain, moderate (4-7) Escitalopram Oxalate (Lexapro) 10 mg PO HS [facility] Last Admin: 05/28/17 21:25 Dose: 10 mg Ferrous Sulfate (Feosol) 325 mg PO DAILY [facility] Last Admin: 05/29/17 10:06 Dose: Not Given Hydromorphone HCl (Dilaudid) 0.5 mg IVP Q4H PRN PRN Reason: Pain, severe (8-10) Last Admin: 05/29/17 14:23 Dose: 0.5 mg Cefazolin Sodium 500 mg/ (Sodium Chloride) 100 mls @ 100 mls/hr IVPB Q8H [facility] Last Admin: 05/29/17 14:19 Dose: 100 mls/hr Lisinopril (Zestril) 20 mg PO DAILY [facility] Last Admin: 05/29/17 14:12 Dose: 20 mg Midazolam HCl (Versed Inj) 2 mg IVP ONCE PRN PRN Reason: Agitation/Restlessness Ondansetron HCl (Zofran Inj) 4 mg IVP Q4 PRN PRN Reason: Nausea/Vomiting - Labs Labs: 05/25/17 07:42 05/25/17 07:42 PT 11.6 SECONDS (9.7-12.2) 05/28/17 05:45 INR 1.0 05/28/17 05:45 APTT 29 SECONDS (21-34) 05/28/17 05:45
--- NOTE | 2017-05-29 16:06 | CP.PCM.PN ---
Subjective - Date & Time of Evaluation Date of Evaluation: 05/29/17 Time of Evaluation: 10:00 - Subjective Subjective: all cultures neg thus far cbc shows hi wbc iv antibiotics to cont less abd pain Objective - Vital Signs/Intake and Output Vital Signs (last 24 hours): Temp Pulse Resp BP Pulse Ox 98.3 F 63 16 148/97 H 100 05/29/17 14:00 05/29/17 14:00 05/29/17 14:00 05/29/17 14:00 05/29/17 14:00 Intake and Output: 05/29/17 05/29/17 06:59 18:59 Intake Total 1020 880 Balance 1020 880 - Medications Medications: Current Medications Albuterol Sulfate (Albuterol 0.083% Inhal Qian (2.5 Mg/3 Ml) Ud) 2.5 mg INH ONCE PRN PRN Reason: Wheezing Amlodipine Besylate (Norvasc) 10 mg PO DAILY [facility] Last Admin: 05/29/17 12:35 Dose: 10 mg Aspirin (Ecotrin) 81 mg PO DAILY [facility] Last Admin: 05/29/17 10:06 Dose: Not Given Cinacalcet (Sensipar) 30 mg PO DAILY [facility] Last Admin: 05/29/17 10:07 Dose: Not Given Clonidine HCl (Catapres) 0.2 mg PO BID [facility] Last Admin: 05/29/17 12:36 Dose: 0.2 mg Diclofenac Sodium (Voltaren) 75 mg PO BID PRN PRN Reason: Pain, moderate (4-7) Escitalopram Oxalate (Lexapro) 10 mg PO HS [facility] Last Admin: 05/28/17 21:25 Dose: 10 mg Ferrous Sulfate (Feosol) 325 mg PO DAILY [facility] Last Admin: 05/29/17 10:06 Dose: Not Given Hydromorphone HCl (Dilaudid) 0.5 mg IVP Q4H PRN PRN Reason: Pain, severe (8-10) Last Admin: 05/29/17 14:23 Dose: 0.5 mg Cefazolin Sodium 500 mg/ (Sodium Chloride) 100 mls @ 100 mls/hr IVPB Q8H [facility] Last Admin: 05/29/17 14:19 Dose: 100 mls/hr Lisinopril (Zestril) 20 mg PO DAILY [facility] Last Admin: 05/29/17 14:12 Dose: 20 mg Midazolam HCl (Versed Inj) 2 mg IVP ONCE PRN PRN Reason: Agitation/Restlessness Ondansetron HCl (Zofran Inj) 4 mg IVP Q4 PRN PRN Reason: Nausea/Vomiting - Labs Labs: 05/25/17 07:42 05/25/17 07:42 PT 11.6 SECONDS (9.7-12.2) 05/28/17 05:45 INR 1.0 05/28/17 05:45 APTT 29 SECONDS (21-34) 05/28/17 05:45 - Constitutional Appears: Non-toxic, Chronically Ill - Head Exam Head Exam: NORMOCEPHALIC - Eye Exam Eye Exam: Normal appearance, PERRL. absent: Scleral icterus - ENT Exam ENT Exam: Mucous Membranes Dry - Neck Exam Neck Exam: absent: Lymphadenopathy - Respiratory Exam Respiratory Exam: Decreased Breath Sounds - Cardiovascular Exam Cardiovascular Exam: REGULAR RHYTHM - GI/Abdominal Exam GI & Abdominal Exam: Distended Assessment and Plan (1) Abdominal pain Status: Acute (2) Hypertension Status: Acute (3) Intractable abdominal pain Status: Resolved (4) Nausea & vomiting Status: Acute (5) Peritonitis Status: Acute (6) Acute peritonitis Status: Acute (7) ESRD (end stage renal disease) Status: Acute
[2017-05-29] MEDS ORDERED: Vancomycin 1 gm/NS 200 ml 1 GM/200 ML BAG IVPB ONE (17:00)
[2017-05-30 07:55] LABS: BASO % 0.6 % (0.0-2.0); EOS # 0.4 K/uL (0.0-0.7); EOS % 5.5 % (0.0-4.0); LYMPH # 1.2 K/uL (1.0-4.3); LYMPH % 15.2 % (20.0-40.0); MEAN CELL VOLUME 90.9 fL (81.0-99.0); MEAN CORPUSCULAR HEMOGLOBIN 31.5 pg (27.0-31.0); MEAN CORPUSCULAR HGB CONC 34.6 g/dL (33.0-37.0); MEAN PLATELET VOLUME 8.3 fL (7.2-11.7); MONO # 0.5 K/uL (0.0-0.8); MONO % 6.5 % (0.0-10.0); NEUT # 5.7 K/uL (1.8-7.0); NEUT % 72.2 % (50.0-75.0); RBC 3.38 Mil/uL (3.80-5.20); RED CELL DISTRIBUTION WIDTH 13.9 % (11.5-14.5)
[2017-05-30 08:12] LABS: HEMOGLOBIN 10.6 g/dL (11.0-16.0); WHITE BLOOD COUNT 7.9 K/uL (4.8-10.8)
[2017-05-30 08:17] LABS: ALB/GLOB RATIO 1.4 (1.0-2.1); ALBUMIN 3.4 g/dL (3.5-5.0); ALT/SGPT 19 U/L (9-52); AST/SGOT 16 U/L (14-36); BLOOD UREA NITROGEN 21 mg/dL (7-17); CALCIUM 8.6 mg/dl (8.6-10.4); GFR AFRICAN-AMERICAN 23; GFR NON-AFRICAN AMERICAN 19
[2017-05-30 08:37] LABS: HEPATITIS B SURFACE AG NEGATIVE (NEGATIVE)
[2017-05-30 08:42] LABS: HEPATITIS B CORE AB Negative (NEGATIVE)
[2017-05-30 08:54] LABS: HEPATITIS C ANTIBODY Negative (NEGATIVE)
--- NOTE | 2017-05-30 09:53 | CP.PCM.PN ---
Subjective - Date & Time of Evaluation Date of Evaluation: 05/30/17 Time of Evaluation: 09:50 - Subjective Subjective: afebrile bp stable cbc chems noted awake alert comfortable less abdomenal pain pain over fistula left arm ROS no headache,dizziness no chest pain coygh hemoptysis abdomenal pain no nausea,vomiting diarrhea no dysuria hematuria Objective - Vital Signs/Intake and Output Vital Signs (last 24 hours): Temp Pulse Resp BP Pulse Ox 98.8 F 49 L 20 122/70 98 05/30/17 08:36 05/30/17 08:36 05/30/17 08:36 05/30/17 08:36 05/30/17 08:36 Intake and Output: 05/30/17 05/30/17 06:59 18:59 Intake Total 1000 Balance 1000 - Medications Medications: Current Medications Albuterol Sulfate (Albuterol 0.083% Inhal Qian (2.5 Mg/3 Ml) Ud) 2.5 mg INH ONCE PRN PRN Reason: Wheezing Amlodipine Besylate (Norvasc) 10 mg PO DAILY [facility] Last Admin: 05/30/17 09:44 Dose: 10 mg Aspirin (Ecotrin) 81 mg PO DAILY [facility] Last Admin: 05/30/17 09:44 Dose: 81 mg Cinacalcet (Sensipar) 30 mg PO DAILY [facility] Last Admin: 05/30/17 09:44 Dose: 30 mg Clonidine HCl (Catapres) 0.2 mg PO BID [facility] Last Admin: 05/30/17 09:47 Dose: Not Given Diclofenac Sodium (Voltaren) 75 mg PO BID PRN PRN Reason: Pain, moderate (4-7) Escitalopram Oxalate (Lexapro) 10 mg PO HS [facility] Last Admin: 05/29/17 21:37 Dose: 10 mg Ferrous Sulfate (Feosol) 325 mg PO DAILY [facility] Last Admin: 05/30/17 09:44 Dose: 325 mg Hydromorphone HCl (Dilaudid) 0.5 mg IVP Q4H PRN PRN Reason: Pain, severe (8-10) Last Admin: 05/30/17 02:06 Dose: 0.5 mg Cefazolin Sodium 500 mg/ (Sodium Chloride) 100 mls @ 100 mls/hr IVPB Q8H [facility] Last Admin: 05/30/17 04:31 Dose: 100 mls/hr Lisinopril (Zestril) 20 mg PO DAILY [facility] Last Admin: 05/30/17 09:44 Dose: 20 mg Midazolam HCl (Versed Inj) 2 mg IVP ONCE PRN PRN Reason: Agitation/Restlessness Ondansetron HCl (Zofran Inj) 4 mg IVP Q4 PRN PRN Reason: Nausea/Vomiting - Labs Labs: 05/30/17 07:23 05/30/17 07:23 PT 11.6 SECONDS (9.7-12.2) 05/28/17 05:45 INR 1.0 05/28/17 05:45 APTT 29 SECONDS (21-34) 05/28/17 05:45 - Constitutional Appears: Well, No Acute Distress - ENT Exam ENT Exam: Mucous Membranes Moist - Respiratory Exam Respiratory Exam: Clear to Ausculation Bilateral - Cardiovascular Exam Cardiovascular Exam: REGULAR RHYTHM - GI/Abdominal Exam GI & Abdominal Exam: Soft, Tenderness. absent: Distended Additional comments: milld tenderness - Extremities Exam Extremities Exam: absent: Calf Tenderness, Pedal Edema Additional comments: large bandage over left arm weak bruit heard - Back Exam Back Exam: absent: CVA tenderness (L), CVA tenderness (R) - Skin Skin Exam: Dry Assessment and Plan (1) Abdominal pain Status: Acute (2) ESRD (end stage renal disease) Status: Acute (3) HTN (hypertension) Status: Acute - Assessment and Plan (Free Text) Plan: Antibitics per attending continue supportive care next dialysis 06/01
--- NOTE | 2017-05-30 15:51 | CP.PCM.PN ---
Subjective - Date & Time of Evaluation Date of Evaluation: 05/30/17 Time of Evaluation: 15:51 Objective - Vital Signs/Intake and Output Vital Signs (last 24 hours): Temp Pulse Resp BP Pulse Ox 98.8 F 49 L 20 122/70 98 05/30/17 08:36 05/30/17 08:36 05/30/17 08:36 05/30/17 08:36 05/30/17 08:36 Intake and Output: 05/30/17 05/30/17 06:59 18:59 Intake Total 1000 Balance 1000 - Medications Medications: Current Medications Albuterol Sulfate (Albuterol 0.083% Inhal Qian (2.5 Mg/3 Ml) Ud) 2.5 mg INH ONCE PRN PRN Reason: Wheezing Amlodipine Besylate (Norvasc) 10 mg PO DAILY [facility] Last Admin: 05/30/17 09:44 Dose: 10 mg Aspirin (Ecotrin) 81 mg PO DAILY [facility] Last Admin: 05/30/17 09:44 Dose: 81 mg Cinacalcet (Sensipar) 30 mg PO DAILY [facility] Last Admin: 05/30/17 09:44 Dose: 30 mg Clonidine HCl (Catapres) 0.2 mg PO BID [facility] Last Admin: 05/30/17 09:47 Dose: Not Given Diclofenac Sodium (Voltaren) 75 mg PO BID PRN PRN Reason: Pain, moderate (4-7) Escitalopram Oxalate (Lexapro) 10 mg PO HS [facility] Last Admin: 05/29/17 21:37 Dose: 10 mg Ferrous Sulfate (Feosol) 325 mg PO DAILY [facility] Last Admin: 05/30/17 09:44 Dose: 325 mg Hydromorphone HCl (Dilaudid) 0.5 mg IVP Q4H PRN PRN Reason: Pain, severe (8-10) Last Admin: 05/30/17 15:09 Dose: 0.5 mg Lisinopril (Zestril) 20 mg PO DAILY [facility] Last Admin: 05/30/17 09:44 Dose: 20 mg Midazolam HCl (Versed Inj) 2 mg IVP ONCE PRN PRN Reason: Agitation/Restlessness Ondansetron HCl (Zofran Inj) 4 mg IVP Q4 PRN PRN Reason: Nausea/Vomiting - Labs Labs: 05/30/17 07:23 05/30/17 07:23 PT 11.6 SECONDS (9.7-12.2) 05/28/17 05:45 INR 1.0 05/28/17 05:45 APTT 29 SECONDS (21-34) 05/28/17 05:45
--- NOTE | 2017-05-31 11:25 | CP.PCM.PN ---
Subjective - Date & Time of Evaluation Date of Evaluation: 05/31/17 Time of Evaluation: 11:25 Objective - Vital Signs/Intake and Output Vital Signs (last 24 hours): Temp Pulse Resp BP Pulse Ox 98.6 F 41 L 20 154/76 H 100 05/31/17 08:00 05/31/17 08:00 05/31/17 08:00 05/31/17 08:00 05/31/17 08:00 Intake and Output: 05/31/17 05/31/17 06:59 18:59 Intake Total 350 Balance 350 - Medications Medications: Current Medications Albuterol Sulfate (Albuterol 0.083% Inhal Qian (2.5 Mg/3 Ml) Ud) 2.5 mg INH ONCE PRN PRN Reason: Wheezing Amlodipine Besylate (Norvasc) 10 mg PO DAILY [facility] Last Admin: 05/31/17 09:39 Dose: 10 mg Aspirin (Ecotrin) 81 mg PO DAILY [facility] Last Admin: 05/31/17 09:39 Dose: 81 mg Cinacalcet (Sensipar) 30 mg PO DAILY [facility] Last Admin: 05/31/17 09:39 Dose: 30 mg Clonidine HCl (Catapres) 0.2 mg PO BID [facility] Last Admin: 05/31/17 09:39 Dose: 0.2 mg Diclofenac Sodium (Voltaren) 75 mg PO BID PRN PRN Reason: Pain, moderate (4-7) Escitalopram Oxalate (Lexapro) 10 mg PO HS [facility] Last Admin: 05/30/17 21:25 Dose: 10 mg Ferrous Sulfate (Feosol) 325 mg PO DAILY [facility] Last Admin: 05/31/17 09:39 Dose: 325 mg Hydromorphone HCl (Dilaudid) 0.5 mg IVP Q4H PRN PRN Reason: Pain, severe (8-10) Last Admin: 05/31/17 11:00 Dose: 0.5 mg Cefazolin Sodium 500 mg/ (Sodium Chloride) 50 mls @ 100 mls/hr IVPB Q8H [facility] Last Admin: 05/31/17 09:50 Dose: 100 mls/hr Lisinopril (Zestril) 20 mg PO DAILY [facility] Last Admin: 05/31/17 09:39 Dose: 20 mg Midazolam HCl (Versed Inj) 2 mg IVP ONCE PRN PRN Reason: Agitation/Restlessness Ondansetron HCl (Zofran Inj) 4 mg IVP Q4 PRN PRN Reason: Nausea/Vomiting - Labs Labs: 05/30/17 07:23 05/30/17 07:23 PT 11.6 SECONDS (9.7-12.2) 05/28/17 05:45 INR 1.0 05/28/17 05:45 APTT 29 SECONDS (21-34) 05/28/17 05:45
--- NOTE | 2017-05-31 15:22 | CP.PCM.PN ---
Subjective - Date & Time of Evaluation Date of Evaluation: 05/31/17 Time of Evaluation: 10:00 - Subjective Subjective: improving less pain Objective - Vital Signs/Intake and Output Vital Signs (last 24 hours): Temp Pulse Resp BP Pulse Ox 98.6 F 41 L 20 154/76 H 100 05/31/17 08:00 05/31/17 08:00 05/31/17 08:00 05/31/17 08:00 05/31/17 08:00 Intake and Output: 05/31/17 05/31/17 06:59 18:59 Intake Total 350 460 Balance 350 460 - Medications Medications: Current Medications Albuterol Sulfate (Albuterol 0.083% Inhal Qian (2.5 Mg/3 Ml) Ud) 2.5 mg INH ONCE PRN PRN Reason: Wheezing Amlodipine Besylate (Norvasc) 10 mg PO DAILY [facility] Last Admin: 05/31/17 09:39 Dose: 10 mg Aspirin (Ecotrin) 81 mg PO DAILY [facility] Last Admin: 05/31/17 09:39 Dose: 81 mg Cinacalcet (Sensipar) 30 mg PO DAILY [facility] Last Admin: 05/31/17 09:39 Dose: 30 mg Clonidine HCl (Catapres) 0.2 mg PO BID [facility] Last Admin: 05/31/17 09:39 Dose: 0.2 mg Diclofenac Sodium (Voltaren) 75 mg PO BID PRN PRN Reason: Pain, moderate (4-7) Escitalopram Oxalate (Lexapro) 10 mg PO HS [facility] Last Admin: 05/30/17 21:25 Dose: 10 mg Ferrous Sulfate (Feosol) 325 mg PO DAILY [facility] Last Admin: 05/31/17 09:39 Dose: 325 mg Hydromorphone HCl (Dilaudid) 0.5 mg IVP Q4H PRN PRN Reason: Pain, severe (8-10) Last Admin: 05/31/17 15:02 Dose: 0.5 mg Cefazolin Sodium 500 mg/ (Sodium Chloride) 50 mls @ 100 mls/hr IVPB Q8H [facility] Last Admin: 05/31/17 09:50 Dose: 100 mls/hr Lisinopril (Zestril) 20 mg PO DAILY [facility] Last Admin: 05/31/17 09:39 Dose: 20 mg Midazolam HCl (Versed Inj) 2 mg IVP ONCE PRN PRN Reason: Agitation/Restlessness Ondansetron HCl (Zofran Inj) 4 mg IVP Q4 PRN PRN Reason: Nausea/Vomiting - Labs Labs: 05/30/17 07:23 05/30/17 07:23 PT 11.6 SECONDS (9.7-12.2) 05/28/17 05:45 INR 1.0 05/28/17 05:45 APTT 29 SECONDS (21-34) 05/28/17 05:45 - Constitutional Appears: Non-toxic, Chronically Ill - Head Exam Head Exam: NORMOCEPHALIC - Eye Exam Eye Exam: PERRL - ENT Exam ENT Exam: Mucous Membranes Dry - Neck Exam Neck Exam: absent: Lymphadenopathy - Respiratory Exam Respiratory Exam: Decreased Breath Sounds, Clear to Ausculation Bilateral - Cardiovascular Exam Cardiovascular Exam: REGULAR RHYTHM - GI/Abdominal Exam GI & Abdominal Exam: Distended, Soft - Rectal Exam Rectal Exam: Deferred - Exam Exam: NORMAL INSPECTION Assessment and Plan (1) Abdominal pain Status: Acute (2) Hypertension Status: Acute (3) Intractable abdominal pain Status: Resolved (4) Nausea & vomiting Status: Acute (5) Peritonitis Status: Acute (6) Acute peritonitis Status: Acute (7) ESRD (end stage renal disease) Status: Acute
--- NOTE | 2017-06-01 12:19 | CP.PCM.PN ---
Subjective - Date & Time of Evaluation Date of Evaluation: 06/01/17 Time of Evaluation: 12:16 - Subjective Subjective: Seen on dialysis- alert; s/p AV F placement LUE BP controlled No dyspnea, nausea, vomiting, fevers, chills No + culture Cannot hear bruit LUE Objective - Vital Signs/Intake and Output Vital Signs (last 24 hours): Temp Pulse Resp BP Pulse Ox 98.4 F 52 L 17 113/82 99 06/01/17 09:10 06/01/17 09:10 06/01/17 09:10 06/01/17 11:40 06/01/17 09:10 Intake and Output: 06/01/17 06/01/17 06:59 18:59 Intake Total 580 Output Total 650 Balance -70 - Medications Medications: Current Medications Amlodipine Besylate (Norvasc) 10 mg PO DAILY [facility] Last Admin: 06/01/17 09:57 Dose: Not Given Aspirin (Ecotrin) 81 mg PO DAILY [facility] Last Admin: 06/01/17 09:57 Dose: Not Given Cinacalcet (Sensipar) 30 mg PO DAILY [facility] Last Admin: 06/01/17 09:58 Dose: Not Given Clonidine HCl (Catapres) 0.2 mg PO BID [facility] Last Admin: 06/01/17 09:57 Dose: Not Given Diclofenac Sodium (Voltaren) 75 mg PO BID PRN PRN Reason: Pain, moderate (4-7) Escitalopram Oxalate (Lexapro) 10 mg PO HS [facility] Last Admin: 05/31/17 21:36 Dose: 10 mg Ferrous Sulfate (Feosol) 325 mg PO DAILY [facility] Last Admin: 06/01/17 09:57 Dose: Not Given Hydromorphone HCl (Dilaudid) 0.5 mg IVP Q4H PRN PRN Reason: Pain, severe (8-10) Last Admin: 06/01/17 08:28 Dose: 0.5 mg Cefazolin Sodium 500 mg/ (Sodium Chloride) 50 mls @ 100 mls/hr IVPB Q8H [facility] Last Admin: 06/01/17 09:57 Dose: Not Given Lisinopril (Zestril) 20 mg PO DAILY [facility] Last Admin: 06/01/17 09:58 Dose: Not Given Midazolam HCl (Versed Inj) 2 mg IVP ONCE PRN PRN Reason: Agitation/Restlessness Ondansetron HCl (Zofran Inj) 4 mg IVP Q4 PRN PRN Reason: Nausea/Vomiting - Labs Labs: 05/30/17 07:23 05/30/17 07:23 PT 11.6 SECONDS (9.7-12.2) 05/28/17 05:45 INR 1.0 05/28/17 05:45 APTT 29 SECONDS (21-34) 05/28/17 05:45 - Constitutional Appears: No Acute Distress, Chronically Ill - Head Exam Head Exam: ATRAUMATIC, NORMAL INSPECTION - Eye Exam Eye Exam: EOMI, Normal appearance - Neck Exam Neck Exam: Normal Inspection. absent: Tenderness - Respiratory Exam Respiratory Exam: Clear to Ausculation Bilateral, NORMAL BREATHING PATTERN - Cardiovascular Exam Cardiovascular Exam: REGULAR RHYTHM, +S1 - GI/Abdominal Exam GI & Abdominal Exam: Soft. absent: Tenderness - Extremities Exam Extremities Exam: Normal Inspection, Tenderness - Neurological Exam Neurological Exam: Alert, CN II-XII Intact - Skin Skin Exam: Dry, Warm Assessment and Plan (1) Hypertensive chronic kidney disease with stage 5 chronic kidney disease or end stage renal disease Status: Acute (2) Intractable abdominal pain Status: Resolved (3) End stage renal disease Status: Acute - Assessment and Plan (Free Text) Plan: Same dialysis MWF Follow up with vascular about AV access Will need outpt HD spot
[2017-06-01 12:27] VITALS: O2SAT 100
[2017-06-01 15:38] VITALS: BP 112/72; PULSE 50; RESP 20; TEMP 98.9
--- NOTE | 2017-06-01 16:26 | CP.PCM.PN ---
Subjective - Date & Time of Evaluation Date of Evaluation: 06/01/17 Time of Evaluation: 11:00 - Subjective Subjective: Patient is alert and orientedx3, NAD, no sob or chest pains. Objective - Vital Signs/Intake and Output Vital Signs (last 24 hours): Temp Pulse Resp BP Pulse Ox 98.9 F 50 L 20 112/72 100 06/01/17 15:00 06/01/17 15:00 06/01/17 15:00 06/01/17 15:00 06/01/17 15:00 Intake and Output: 06/01/17 06/01/17 06:59 18:59 Intake Total 580 450 Output Total 650 Balance -70 450 - Medications Medications: Current Medications Amlodipine Besylate (Norvasc) 10 mg PO DAILY [facility] Last Admin: 06/01/17 09:57 Dose: Not Given Aspirin (Ecotrin) 81 mg PO DAILY [facility] Last Admin: 06/01/17 09:57 Dose: Not Given Cinacalcet (Sensipar) 30 mg PO DAILY [facility] Last Admin: 06/01/17 09:58 Dose: Not Given Clonidine HCl (Catapres) 0.2 mg PO BID [facility] Last Admin: 06/01/17 09:57 Dose: Not Given Diclofenac Sodium (Voltaren) 75 mg PO BID PRN PRN Reason: Pain, moderate (4-7) Escitalopram Oxalate (Lexapro) 10 mg PO HS [facility] Last Admin: 05/31/17 21:36 Dose: 10 mg Ferrous Sulfate (Feosol) 325 mg PO DAILY [facility] Last Admin: 06/01/17 09:57 Dose: Not Given Hydromorphone HCl (Dilaudid) 0.5 mg IVP Q4H PRN PRN Reason: Pain, severe (8-10) Last Admin: 06/01/17 12:51 Dose: 0.5 mg Cefazolin Sodium 500 mg/ (Sodium Chloride) 50 mls @ 100 mls/hr IVPB Q8H [facility] Last Admin: 06/01/17 09:57 Dose: Not Given Lisinopril (Zestril) 20 mg PO DAILY [facility] Last Admin: 06/01/17 09:58 Dose: Not Given Midazolam HCl (Versed Inj) 2 mg IVP ONCE PRN PRN Reason: Agitation/Restlessness Ondansetron HCl (Zofran Inj) 4 mg IVP Q4 PRN PRN Reason: Nausea/Vomiting - Labs Labs: 05/30/17 07:23 05/30/17 07:23 PT 11.6 SECONDS (9.7-12.2) 05/28/17 05:45 INR 1.0 05/28/17 05:45 APTT 29 SECONDS (21-34) 05/28/17 05:45 Assessment and Plan - Assessment and Plan (Free Text) Assessment: Patient is seen and examined. Alert and oriented x3, NAD. s/p HD today, denies sob or chest pains. Outpatient dialysis arranged as per disease case manager rn. D/W DR Roberto, PLAN TO DISCHARGE HOME TODAY, CONTINUE WITH PRESENT MEDS. Advised to follow up with PMD in 1 week.
== END 2017-06-01 16:26 | disposition home or self-care (01) | DRG 583 ==
LOC: C.ER 07:01 → C.9E 09:13 → C.3T 13:00
PROVIDERS: ADMIT Internal Medicine Nephrology; ATTEND Internal Medicine Nephrology
PROC: 5A1 Extracorporeal or Systemic Assistance and Performance, Physiological Systems, Performance (ICD-10-PCS; 2017-05-26)
PROC: 02HV33Z Insertion of Infusion Device into Superior Vena Cava, Percutaneous Approach (ICD-10-PCS; principal; 2017-05-26 11:30)
PROC: 03180JV Bypass Left Brachial Artery to Superior Vena Cava with Synthetic Substitute, Open Approach (ICD-10-PCS; 2017-05-28)
DX: T85.71XA Infection and inflammatory reaction due to peritoneal dialysis catheter, initial encounter (principal); K65.0 Generalized (acute) peritonitis; I13.2 Hypertensive heart and chronic kidney disease with heart failure and with stage 5 chronic kidney disease, or end stage renal disease; N18.6 End stage renal disease; I50.9 Heart failure, unspecified; E11.22 Type 2 diabetes mellitus with diabetic chronic kidney disease; K65.8 Other peritonitis; F17.210 Nicotine dependence, cigarettes, uncomplicated; Z99.2 Dependence on renal dialysis; Z68.23 Body mass index [BMI] 23.0-23.9, adult

== ENCOUNTER 2017-06-19 10:09 | Observation (INO) | payer OTHER ==
[2017-06-19 10:19] VITALS: BMI 23.9
[2017-06-19 12:01] LABS: BASO # 0.1 K/uL (0.0-0.2); BASO % 0.9 % (0.0-2.0); EOS % 0.1 % (0.0-4.0); HEMOGLOBIN 11.9 g/dL (11.0-16.0); LYMPH # 1.1 K/uL (1.0-4.3); LYMPH % 7.9 % (20.0-40.0); MEAN CORPUSCULAR HEMOGLOBIN 31.7 pg (27.0-31.0); MEAN CORPUSCULAR HGB CONC 34.8 g/dL (33.0-37.0); MEAN PLATELET VOLUME 7.4 fL (7.2-11.7); MONO # 0.3 K/uL (0.0-0.8); MONO % 2.2 % (0.0-10.0); NEUT # 12.4 K/uL (1.8-7.0); NEUT % 88.9 % (50.0-75.0); PLATELET COUNT 380 K/uL (130-400); RBC 3.74 Mil/uL (3.80-5.20); RED CELL DISTRIBUTION WIDTH 14.2 % (11.5-14.5); WHITE BLOOD COUNT 13.9 K/uL (4.8-10.8)
[2017-06-19 12:49] LABS: BASOPHIL 1 % (0-2); MONOCYTE 1 % (0-10); NEUTROPHIL 88 % (50-75); PLATELET ESTIMATE NORMAL (NORMAL); TOTAL CELLS COUNTED 100
[2017-06-19 12:50] LABS: ANISOCYTOSIS SLIGHT; LYMPHOCYTE 10 % (20-40); POIKILOCYTOSIS SLIGHT
[2017-06-19 12:51] LABS: HYPOCHROMIC SLIGHT
[2017-06-19 13:05] LABS: ALB/GLOB RATIO 1.3 (1.0-2.1); ALBUMIN 4.5 g/dL (3.5-5.0); CALCIUM 9.8 mg/dl (8.6-10.4)
[2017-06-19 14:07] LABS: HCG,QUALITATIVE URINE NEGATIVE (NEGATIVE)
[2017-06-19] MEDS ORDERED: Morphine 4 MG/ML VIAL ONE (14:10)
[2017-06-19 14:12] LABS: SQUAMOUS EPITHIAL 1 /hpf (0-5); URINE BILIRUBIN NEGATIVE (NEGATIVE); URINE BLOOD NEGATIVE (NEGATIVE); URINE CLARITY Clear (Clear); URINE COLOR Yellow (YELLOW); URINE GLUCOSE (UA) NORMAL (Normal); URINE LEUKOCYTE ESTERASE NEG Leu/uL (Negative); URINE NITRATE NEGATIVE (NEGATIVE); URINE PROTEIN 2+ mg/dL (NEGATIVE); URINE UROBILINOGEN NORMAL mg/dL (0.2-1.0)
[2017-06-19] MEDS ORDERED: Iohexol 240 (50 ml) PO STA (14:43)
[2017-06-19] MEDS ORDERED: Iohexol 240 (50 ml) ONE (15:01)
[2017-06-19] MEDS ORDERED: Sodium Bicarbonate (8.4%) 50 Meq Syringe IVP STA (16:09)
[2017-06-19] MEDS ORDERED: Sodium Bicarbonate (8.4%) 50 Meq Syringe ONE (16:19)
--- NOTE | 2017-06-19 17:16 | CT ---
PROCEDURE: CT scan of the abdomen pelvis dated 06/19/2017. HISTORY: Abdominal pain, vomiting, h/o ESRD COMPARISON: Comparison made with CT scan of the abdomen pelvis dated 05/25/2017. TECHNIQUE: Contiguous helical/transaxial images of the abdomen and pelvis. Oral contrast was administered. No IV contrast given. Coronal and Sagittal reformats generated. Radiation dose: Total exam DLP = This CT exam was performed using one or more of the following dose reduction techniques: Automated exposure control, adjustment of the mA and/or kV according to patient size, and/or use of iterative reconstruction technique FINDINGS: LOWER THORAX: Mild passive/dependent type atelectasis both lung bases left greater than right. No evidence of focal consolidation effusion or pneumothorax. . There is a small hiatal hernia with slight wall thickening of the distal esophagus likely due to protrusion of gastric mucosa. Possibility of esophagitis not completely excluded. LIVER: The liver exhibits relatively normal size measuring approximately 16.2 cm in CC dimension. . Tiny at calcification left lobe liver unchanged. No obvious hepatic masses or collections seen on this noncontrast study. GALLBLADDER AND BILE DUCTS: Surgically resected re- demonstrated are changes of cholecystectomy with metallic clips in the gallbladder fossa. . There is mild dilatation dilatation of the common bile duct likely related to post cholecystectomy sequela. PANCREAS: The pancreas appears grossly unremarkable. Unremarkable. No mass. No ductal dilatation. SPLEEN: Spleen is enlarged measuring just over approximately 14 cm in AP dimension. . No splenic masses or collections seen. ADRENALS: Left adrenal enlargement with masslike appearance of the medial segment. KIDNEYS AND URETERS: The kidneys demonstrate relatively symmetric size. Few punctate calcifications seen upper pole left kidney. No evidence of hydronephrosis. BLADDER: Urinary bladder appears incompletely distended which may account for slight thick-walled appearance likely in part accounts for thick-walled appearance however the possibility of cystitis cannot be excluded. REPRODUCTIVE: Anterior lower uterine segment fibroid again noted Slightly bulky appearing uterus with what probably represents Suspect large septated cyst or 2 adjacent smaller cyst left ovary. The entire complex measures approximately 4.0 x 2.5 cm. Small right adnexal cyst measuring approximately 16 mm x 515 mm. The there is a tiny calcific density adjacent to the anterior margin of this cyst. . Follow-up nonemergent pelvic ultrasound could be performed further evaluation. APPENDIX: Normal-appearing retrocecal appendix best seen on axial series 3, image number [id number]. No periappendiceal inflammatory changes. BOWEL: Evaluation of the bowel is limited due to incomplete opacification. The stomach is incompletely distended which may account for thick-walled appearance. Rugal folds are mildly enlarged; rule out gastritis. The visualized loops of small bowel exhibit relatively normal contour and caliber. No evidence of acute mechanical small bowel obstruction with oral contrast material seen extending into colon to the level of the splenic flexure region. PERITONEUM: No evidence of gross free intraperitoneal air ; previously noted small amount of intraperitoneal air likely related to the presence of a since removed dialysis catheter has undergone resorption. Previously noted mild ascites also no longer visible. LYMPH NODES: No evidence of significant/bulky lymphadenopathy. VASCULATURE: Unremarkable. No aortic aneurysm so far as can be determined. BONES: Minor multilevel degenerative spondylosis of the lower thoracic and lumbar spine. There are no acute compression fractures no retropulsed fragments. The vertebral bodies exhibit the slight increased density with a few scattered nonspecific lucencies; rule out underlying renal osteodystrophy. . OTHER FINDINGS: Previously noted peritoneal dialysis catheter is no longer visible and presumably has been removed. IMPRESSION: No change small calcification -probable small calcified granuloma) left lobe liver. . Changes of cholecystectomy with mild post cholecystectomy ductal dilatation. Punctate nonobstructing right calcifications upper pole left kidney. . Mildly enlarged left adrenal gland with masslike appearance medial-sided Interval removal of peritoneal dialysis catheter. Mild ascites and intraperitoneal air on have undergone resorption and are no longer visible. Bilateral adnexal cysts. Uterine fibroid.
--- NOTE | 2017-06-19 17:36 | C.PDOC ---
Time Seen by Provider: 06/19/17 11:12 Chief Complaint (Nursing): Abdominal Pain Past Medical History Vital Signs: Last Vital Signs Temp 98.7 F 06/19/17 14:10 Pulse 82 06/19/17 14:10 Resp 16 06/19/17 14:10 BP 204/117 H 06/19/17 14:10 Pulse Ox 100 06/19/17 14:10 - Medical History PMH: Anemia, Anxiety, CHF, Depression, HTN, Kidney Stones (left), End Stage Renal Disease (on PD), Chronic Kidney Disease Surgical History: Cholecystectomy - [facility] Procedures (05/25/17) INSERT OF INFUSION DEV INTO PERITON CAV, PERC ENDO APPROACH (11/08/16) INSERTION OF INFUSION DEV INTO SUP VENA CAVA, PERC APPROACH (05/25/17) IRRIGATION OF PERITON CAV USING DIALYSATE, PERC APPROACH (03/28/17) PERFORMANCE OF BILIARY FILTRATION, MULTIPLE (05/25/17) PERFORMANCE OF URINARY FILTRATION, SINGLE (12/31/16) PLAIN RADIOGRAPHY OF BILE DUCTS USING OTHER CONTRAST (11/29/16) RESECTION OF GALLBLADDER, PERCUTANEOUS ENDOSCOPIC APPROACH (11/29/16) Family History: States: Unknown Family Hx - Social History Hx Alcohol Use: No Hx Substance Use: No - Immunization History Hx Tetanus Toxoid Vaccination: No Hx Influenza Vaccination: Yes Hx Pneumococcal Vaccination: No ED Course And Treatment - Laboratory Results Result Diagrams: 06/19/17 11:57 06/19/17 12:34 O2 Sat by Pulse Oximetry: 100 Disposition - Disposition
--- NOTE | 2017-06-19 18:03 | C.PDOC ---
History Of Present Illness Pt was on Peritoneal dialysis, but the catheter was removed and she is now on hemodialysis (M/W/F). She missed her dialysis 2 days ago, and she came here today instead of going to dialysis due to abdominal pain. Time Seen by Provider: 06/19/17 11:12 Chief Complaint (Nursing): Abdominal Pain History Per: Patient Onset/Duration Of Symptoms: Days (few) Current Symptoms Are (Timing): Still Present Severity: Moderate Location Of Pain/Discomfort: Diffuse Quality Of Discomfort: Unable To Describe, "Pain" Associated Symptoms: Nausea, Vomiting Alleviating Factors: None Additional History Per: Prior Records Past Medical History Reviewed: Historical Data, Nursing Documentation, Vital Signs Vital Signs: Last Vital Signs Temp 98.7 F 06/19/17 14:10 Pulse 82 06/19/17 14:10 Resp 16 06/19/17 14:10 BP 204/117 H 06/19/17 14:10 Pulse Ox 100 06/19/17 14:10 - Medical History PMH: Anemia, Anxiety, CHF, Depression, HTN, Kidney Stones (left), End Stage Renal Disease, Chronic Kidney Disease Surgical History: Cholecystectomy - [facility] Procedures (05/25/17) INSERT OF INFUSION DEV INTO PERITON CAV, PERC ENDO APPROACH (11/08/16) INSERTION OF INFUSION DEV INTO SUP VENA CAVA, PERC APPROACH (05/25/17) IRRIGATION OF PERITON CAV USING DIALYSATE, PERC APPROACH (03/28/17) PERFORMANCE OF BILIARY FILTRATION, MULTIPLE (05/25/17) PERFORMANCE OF URINARY FILTRATION, SINGLE (12/31/16) PLAIN RADIOGRAPHY OF BILE DUCTS USING OTHER CONTRAST (11/29/16) RESECTION OF GALLBLADDER, PERCUTANEOUS ENDOSCOPIC APPROACH (11/29/16) Family History: States: Unknown Family Hx - Social History Hx Alcohol Use: No Hx Substance Use: No - Immunization History Hx Tetanus Toxoid Vaccination: No Hx Influenza Vaccination: Yes Hx Pneumococcal Vaccination: No Review Of Systems Except As Marked, All Systems Reviewed And Found Negative. Constitutional: Negative for: Fever Cardiovascular: Negative for: Chest Pain Respiratory: Negative for: Cough Gastrointestinal: Positive for: Nausea, Vomiting, Abdominal Pain. Negative for : Diarrhea, Melena, Hematochezia, Hematemesis Genitourinary: Negative for: Dysuria Musculoskeletal: Negative for: Neck Pain Skin: Negative for: Rash Neurological: Negative for: Weakness, Numbness Physical Exam - Physical Exam Appears: Non-toxic, No Acute Distress, Chronically Ill Skin: Normal Color, Warm, Dry Head: Atraumatic, Normacephalic Eye(s): bilateral: PERRL, EOMI Neck: Normal ROM, Supple Cardiovascular: Rhythm Regular Respiratory: Normal Breath Sounds, No Accessory Muscle Use Gastrointestinal/Abdominal: Soft, Tenderness (nonspecific), No Guarding, No Rebound Back: No CVA Tenderness Extremity: Normal ROM Neurological/Psych: Oriented x3, Normal Motor, Normal Sensation ED Course And Treatment - Laboratory Results Result Diagrams: 06/19/17 11:57 06/19/17 12:34 Lab Interpretation: Abnormal Interpretation Of Abnormal: Mild leukocytosis. Renal failure with hyperkalemia. Urine POC: Negative ECG: Interpreted By Me, Viewed By Me ECG Rhythm: Sinus Bradycardia, Nonspecific Changes Interpretation Of ECG: No changes due to hyperkalemia. Rate From EC O2 Sat by Pulse Oximetry: 100 Pulse Ox Interpretation: Normal - CT Scan/US CT abd/pelv Other Rad Studies (CT/US): Read By Radiologist, Radiology Report Reviewed CT/US Interpretation: IMPRESSION: No change small calcification -probable small calcified granuloma) left lobe liver. . Changes of cholecystectomy with mild post cholecystectomy ductal dilatation. Punctate nonobstructing right calcifications upper pole left kidney. . Mildly enlarged left adrenal gland with masslike appearance medial-sided. Interval removal of peritoneal dialysis catheter. Mild ascites and intraperitoneal air on have undergone resorption and are no longer visible. Bilateral adnexal cysts. Uterine fibroid. - Physician Consult Information Physician Contacted: Scotty Pompa (Renal) Outcome Of Conversation: He will arrange for inpt dialysis tonight. Progress - Interventions Interventions:: Observation - Medications Administered Intravenous: Antiemetic, Opiate, Other (PPI) - Data Reviewed Data Reviewed: Lab, Diagnostic imaging, Old records - Patient Status Patient status: Partially improved - Continuity of Care Discussed patient case with:: Patient, ED Nurse, PMD Discussed pt. case with agriculture consultant/specialty: Nephrology Disposition Discussed With : Joseph Zuleta Comment: He accepted pt on his service. Doctor Will See Patient In The: Hospital Counseled Patient/Family Regarding: Studies Performed, Diagnosis - Disposition Disposition: HOSPITALIZED Disposition Time: 18:07 Condition: FAIR - Clinical Impression Clinical Impression: ESRD needing dialysis, Abdominal pain
[2017-06-20] MEDS ORDERED: Sod Polystyrene Sulf 15 gm/60 ml Susp PO ONE (00:15)
[2017-06-20] MEDS: Oxycodone/Acetaminophen 5/325 mg Tab PO PRN ×2 (01:51→08:05)
[2017-06-20 06:57] LABS: BASO # 0.1 K/uL (0.0-0.2); BASO % 0.6 % (0.0-2.0); EOS # 0.1 K/uL (0.0-0.7); EOS % 0.7 % (0.0-4.0); HEMOGLOBIN 12.1 g/dL (11.0-16.0); LYMPH # 1.4 K/uL (1.0-4.3); LYMPH % 12.8 % (20.0-40.0); MEAN CELL VOLUME 90.3 fL (81.0-99.0); MEAN CORPUSCULAR HEMOGLOBIN 32.3 pg (27.0-31.0); MEAN CORPUSCULAR HGB CONC 35.8 g/dL (33.0-37.0); MEAN PLATELET VOLUME 7.4 fL (7.2-11.7); MONO # 0.4 K/uL (0.0-0.8); MONO % 3.7 % (0.0-10.0); NEUT # 8.9 K/uL (1.8-7.0); NEUT % 82.2 % (50.0-75.0); RBC 3.75 Mil/uL (3.80-5.20); WHITE BLOOD COUNT 10.8 K/uL (4.8-10.8)
[2017-06-20 07:04] LABS: ALB/GLOB RATIO 1.4 (1.0-2.1); ALBUMIN 4.4 g/dL (3.5-5.0); CALCIUM 9.6 mg/dl (8.6-10.4)
[2017-06-20 08:02] VITALS: BP 165/90; RESP 20; TEMP 98.8; O2SAT 99
[2017-06-20] MEDS ORDERED: Belladonna-Phenobarbital PO SCH (10:00)
[2017-06-20] MEDS ORDERED: Enoxaparin 30 mg Syringe SC SCH (10:00)
[2017-06-20] MEDS ORDERED: Pantoprazole 40 mg EC Tab PO SCH (10:00)
--- NOTE | 2017-06-20 10:13 | CP.PCM.CON ---
History of Present Illness - History of Present Illness History of Present Illness: pt 37 yo female with HTN, ESRD on HD MWF presents to ER with complaints of not feeling after missing dialysis on thursday and yesterday complained of SOB, abdominal pain and diarrhea no fevers mentions due to cj weather, transportation did not come to pick her up yesterday was not feeling well, thats why did not go for dialysis Had HD lere in the hospital last night , feeling much better this morning PMHX- ESRD on HD, HTN, failed PD PSHx- PD catheter placement, permacath and AV Fistula Social- no smoking, alcohol or drugs family- no family history of kidney disease Review of Systems - Review of Systems All systems: reviewed and no additional remarkable complaints except Review of Systems: ROS as per HPI, other than that 10 point ROS negative Past Patient History - Past Medical History & Family History Past Medical History?: Yes - Past Social History Smoking Status: Light Smoker < 10 Cigarettes Daily - CARDIAC Hx Congestive Heart Failure: Yes Hx Hypertension: Yes - PULMONARY Hx Respiratory Disorders: No - NEUROLOGICAL Hx Neurological Disorder: No - HEENT Hx HEENT Problems: No - RENAL Hx Chronic Kidney Disease: Yes Hx Kidney Stones: Yes (left) - ENDOCRINE/METABOLIC Hx Endocrine Disorders: No - HEMATOLOGICAL/ONCOLOGICAL Hx Anemia: Yes - INTEGUMENTARY Hx Dermatological Problems: No - MUSCULOSKELETAL/RHEUMATOLOGICAL Hx Falls: No - GASTROINTESTINAL Hx Gastrointestinal Disorders: No - GENITOURINARY/GYNECOLOGICAL Hx Genitourinary Disorders: No - PSYCHIATRIC Hx Anxiety: Yes Hx Depression: Yes Hx Substance Use: No - SURGICAL HISTORY Hx Cholecystectomy: Yes - ANESTHESIA Hx Anesthesia: Yes Hx Anesthesia Reactions: No Hx Malignant Hyperthermia: No Meds Allergies/Adverse Reactions: Allergies Allergy/AdvReac Type Severity Reaction Status Date / Time No Known Allergies Allergy Verified 06/19/17 10:17 - Medications Medications: Current Medications Amlodipine Besylate (Norvasc) 10 mg PO DAILY [facility] Last Admin: 06/20/17 09:30 Dose: 10 mg Aspirin (Ecotrin) 81 mg PO DAILY [facility] Last Admin: 06/20/17 09:30 Dose: 81 mg Belladonna/Phenobarbital () 1 tab PO TID [facility] Last Admin: 06/20/17 09:36 Dose: 1 tab Cinacalcet (Sensipar) 30 mg PO DAILY [facility] Last Admin: 06/20/17 09:35 Dose: 30 mg Clonidine HCl (Catapres) 0.2 mg PO BID [facility] Last Admin: 06/20/17 09:30 Dose: 0.2 mg Enoxaparin Sodium (Lovenox) 30 mg SC DAILY [facility] Last Admin: 06/20/17 09:29 Dose: 30 mg Escitalopram Oxalate (Lexapro) 10 mg PO HS [facility] Ferrous Sulfate (Feosol) 325 mg PO DAILY [facility] Last Admin: 06/20/17 09:30 Dose: 325 mg Hydromorphone HCl (Dilaudid) 1 mg IVP Q4H PRN PRN Reason: pain 8-10 Metronidazole (Flagyl) 500 mg in 100 mls @ 100 mls/hr IVPB Q24H [facility] Lisinopril (Zestril) 20 mg PO DAILY [facility] Last Admin: 06/20/17 09:30 Dose: 20 mg Oxycodone/Acetaminophen (Percocet 5/325 Mg Tab) 1 tab PO Q4H PRN PRN Reason: Pain, moderate (4-7) Stop: 06/23/17 00:09 Last Admin: 06/20/17 08:05 Dose: 1 tab Pantoprazole Sodium (Protonix Ec Tab) 40 mg PO DAILY [facility] Last Admin: 06/20/17 09:30 Dose: 40 mg Physical Exam - Constitutional Appears: Well, Non-toxic - Head Exam Head Exam: ATRAUMATIC, NORMOCEPHALIC - Eye Exam Eye Exam: EOMI, Normal appearance, PERRL - ENT Exam ENT Exam: Mucous Membranes Moist - Neck Exam Neck exam: Positive for: Full Rom - Respiratory Exam Respiratory Exam: Clear to Auscultation Bilateral. absent: Rhonchi, Wheezes - Cardiovascular Exam Cardiovascular Exam: REGULAR RHYTHM, +S1, +S2 - GI/Abdominal Exam GI & Abdominal Exam: Normal Bowel Sounds, Soft. absent: Tenderness - Extremities Exam Extremities exam: Positive for: full ROM. Negative for: pedal edema - Neurological Exam Neurological exam: Alert, Oriented x3 - Psychiatric Exam Psychiatric exam: Normal Affect, Normal Mood - Skin Skin Exam: Dry, Intact - Additional Findings Additional findings: no bruit over left arm AV fistula Results - Vital Signs Recent Vital Signs: Last Vital Signs Temp 98.8 F 06/20/17 06:15 Pulse 67 06/20/17 06:15 Resp 20 06/20/17 06:15 BP 165/90 H 06/20/17 06:15 Pulse Ox 99 06/20/17 06:15 - Labs Result Diagrams: 06/20/17 06:37 06/20/17 06:37 Labs: Laboratory Results - last 24 hr 06/19/17 06/19/17 06/19/17 11:57 12:34 13:56 WBC 13.9 H D RBC 3.74 L Hgb 11.9 Hct 34.0 MCV 91.0 MCH 31.7 H MCHC 34.8 RDW 14.2 Plt Count 380 D MPV 7.4 Neut % (Auto) 88.9 H Lymph % (Auto) 7.9 L [place] % (Auto) 2.2 Eos % (Auto) 0.1 Baso % (Auto) 0.9 Neut # (Auto) 12.4 H Lymph # (Auto) 1.1 [place] # (Auto) 0.3 Eos # (Auto) 0.0 Baso # (Auto) 0.1 Neutrophils % (Manual) 88 H Lymphocytes % (Manual) 10 L Monocytes % (Manual) 1 Basophils % (Manual) 1 Platelet Estimate Normal Hypochromasia (manual) Slight Poikilocytosis (manual Slight Anisocytosis (manual) Slight Sodium 138 Potassium 5.9 H Chloride 106 Carbon Dioxide 20 L Anion Gap 19 BUN 38 H Creatinine 3.8 H Est GFR ( Amer) 16 Est GFR (Non-Af Amer) 13 Random Glucose 80 Calcium 9.8 Total Bilirubin 0.6 AST 21 ALT 26 Alkaline Phosphatase 90 Total Protein 8.0 Albumin 4.5 Globulin 3.5 Albumin/Globulin Ratio 1.3 Lipase 111 Urine Color Yellow Urine Clarity Clear Urine pH 7.0 Ur Specific [place] 1.012 Urine Protein 2+ H Urine Glucose (UA) Normal Urine Ketones Negative Urine Blood Negative Urine Nitrate Negative Urine Bilirubin Negative Urine Urobilinogen Normal Ur Leukocyte Esterase Neg Urine WBC (Auto) < 1 Urine RBC (Auto) 1 Ur Squamous Epith Cells 1 Urine HCG, Qual Negative Hep Bs Antigen 06/19/17 06/20/17 06/20/17 22:21 06:37 06:37 WBC 10.8 RBC 3.75 L Hgb 12.1 Hct 33.9 L MCV 90.3 MCH 32.3 H MCHC 35.8 RDW 14.0 Plt Count 380 MPV 7.4 Neut % (Auto) 82.2 H Lymph % (Auto) 12.8 L [place] % (Auto) 3.7 Eos % (Auto) 0.7 Baso % (Auto) 0.6 Neut # (Auto) 8.9 H Lymph # (Auto) 1.4 [place] # (Auto) 0.4 Eos # (Auto) 0.1 Baso # (Auto) 0.1 Neutrophils % (Manual) Lymphocytes % (Manual) Monocytes % (Manual) Basophils % (Manual) Platelet Estimate Hypochromasia (manual) Poikilocytosis (manual Anisocytosis (manual) Sodium 140 Potassium 3.7 Chloride 97 L Carbon Dioxide 28 Anion Gap 18 BUN 18 H Creatinine 2.8 H Est GFR ( Amer) 23 Est GFR (Non-Af Amer) 19 Random Glucose 97 Calcium 9.6 Total Bilirubin 0.4 AST 17 ALT 16 Alkaline Phosphatase 88 Total Protein 7.5 Albumin 4.4 Globulin 3.1 Albumin/Globulin Ratio 1.4 Lipase Urine Color Urine Clarity Urine pH Ur Specific [place] Urine Protein Urine Glucose (UA) Urine Ketones Urine Blood Urine Nitrate Urine Bilirubin Urine Urobilinogen Ur Leukocyte Esterase Urine WBC (Auto) Urine RBC (Auto) Ur Squamous Epith Cells Urine HCG, Qual Hep Bs Antigen Negative Assessment & Plan (1) Abdominal pain Status: Acute (2) ESRD needing dialysis Status: Acute (3) Anemia Status: Acute (4) 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
[2017-06-20] MEDS ORDERED: metroNIDAZOLE IV 500 mg/100 ml 500 MG/100 ML BAG IVPB SCH (11:00)
--- NOTE | 2017-06-20 11:43 | CP.PCM.PN ---
Subjective - Date & Time of Evaluation Date of Evaluation: 06/20/17 Time of Evaluation: 10:40 - Subjective Subjective: SHUTTLE THREADER NOTES patient seen today with Dr. Otto stahl , denies any complaints Patient received HD yesterday seen by renal today cleared fro discharge from nephrology standpoint As per Dr. Otto stahl patient can be discharge home today and f/u with Dr. Wright office and Dr. Otto stahl office next week Objective - Vital Signs/Intake and Output Vital Signs (last 24 hours): Temp Pulse Resp BP Pulse Ox 98.8 F 67 20 165/90 H 99 06/20/17 06:15 06/20/17 06:15 06/20/17 06:15 06/20/17 06:15 06/20/17 06:15 Intake and Output: 06/20/17 06/20/17 06:59 18:59 Intake Total 240 Balance 240 - Medications Medications: Current Medications Amlodipine Besylate (Norvasc) 10 mg PO DAILY [facility] Last Admin: 06/20/17 09:30 Dose: 10 mg Aspirin (Ecotrin) 81 mg PO DAILY [facility] Last Admin: 06/20/17 09:30 Dose: 81 mg Belladonna/Phenobarbital () 1 tab PO TID [facility] Last Admin: 06/20/17 09:36 Dose: 1 tab Cinacalcet (Sensipar) 30 mg PO DAILY [facility] Last Admin: 06/20/17 09:35 Dose: 30 mg Clonidine HCl (Catapres) 0.2 mg PO BID [facility] Last Admin: 06/20/17 09:30 Dose: 0.2 mg Enoxaparin Sodium (Lovenox) 30 mg SC DAILY [facility] Last Admin: 06/20/17 09:29 Dose: 30 mg Escitalopram Oxalate (Lexapro) 10 mg PO HS [facility] Ferrous Sulfate (Feosol) 325 mg PO DAILY [facility] Last Admin: 06/20/17 09:30 Dose: 325 mg Hydromorphone HCl (Dilaudid) 1 mg IVP Q4H PRN PRN Reason: pain 8-10 Last Admin: 06/20/17 10:48 Dose: 1 mg Metronidazole (Flagyl) 500 mg in 100 mls @ 100 mls/hr IVPB Q24H [facility] Lisinopril (Zestril) 20 mg PO DAILY [facility] Last Admin: 06/20/17 09:30 Dose: 20 mg Oxycodone/Acetaminophen (Percocet 5/325 Mg Tab) 1 tab PO Q4H PRN PRN Reason: Pain, moderate (4-7) Stop: 06/23/17 00:09 Last Admin: 06/20/17 08:05 Dose: 1 tab Pantoprazole Sodium (Protonix Ec Tab) 40 mg PO DAILY [facility] Last Admin: 06/20/17 09:30 Dose: 40 mg - Labs Labs: 06/20/17 06:37 06/20/17 06:37
[2017-06-20 11:49] LABS: INR 1.1; PROTHROMBIN TIME 12.5 SECONDS (9.7-12.2)
[2017-06-20 11:55] VITALS: PULSE 57
[2017-06-20 11:57] LABS: AMYLASE 72 U/L (30-110); LIPASE 104 U/L (23-300)
--- NOTE | 2017-06-21 10:09 | CON ---
DATE: 06/20/2017 HISTORY OF PRESENT ILLNESS: I was called for GI consultation by the admitting MD. The patient was seen and fully examined on 06/20/2017. The entire chart is reviewed including, but not limited to the most recent lab and radiology study results, current and the previous medication list, current and previous medical events. Case discussed with the staff at length. This is a 37 years old female, who was admitted to the hospital due to severe abdominal pain, with peritoneal dialysis. Before, on hemodialysis, recently with the complaint of severe abdominal pain. Postprandial abdominal distention, dyspepsia with nausea with recurrent result of vomiting recently. Then, peritoneal and the entire chart is reviewed including, but not limited to the most recent lab and radiology study results, current and the previous medication list, current and previous medical events. Case discussed with the staff at length. The patient denies any chest pain, palpitation, actual shortness of breath and no chills or fever. After being admitted to the hospital, she was found to have elevated white blood cells of 13.9 with increased platelet count of 380, BUN was 38, creatinine 3.8; repeated, was increased. Potassium 5.9, low CO2 content of 20 indicative of metabolic acidosis. PAST MEDICAL HISTORY: 1. Including, but not limited to chronic renal failure, on dialysis. 2. Hypertension with period of congestive heart failure before. 3. Depression with severe anxiety syndrome. 4. Status post cholecystectomy. FAMILY HISTORY: Unknown. SOCIAL HISTORY: Denies any known history of cigarette smoking or alcohol intake. ALLERGIES TO MEDICATION: Unclear. CURRENT MEDICATIONS: List seen and reviewed. PHYSICAL EXAMINATION GENERAL: A 37 years old female, awake, alert, and oriented, complaining of severe currently diffuse abdominal pain with nausea, had episodes of vomiting recently. VITAL SIGNS: Afebrile with pulse of 86, respiratory rate 18 to 20, blood pressure of 196/102. HEENT: Showed pale dry mucous membrane. Nonicteric sclerae. LYMPH NODES: No lymphadenitis or lymphadenopathy. LUNGS: Few scattered crepitation with decreased air entry at bases. HEART: Positive S1 and S2. ABDOMEN: With diffuse tenderness and mild distention. No masses or organomegaly. No rebound tenderness or guarding. Bowel sounds are hypoactive. RECTAL: The patient refused. EXTREMITIES: With edematous changes, mild impulse in the lower extremities. No clubbing or cyanosis. NEUROLOGIC: No reported new neurological deficits, sensory or motor. Peripheral pulses are present bilaterally. IMPRESSION: 1. Diffuse abdominal pain with known history of peritoneal dialysis throughout, acute peritonitis, several hours re-exacerbation of peptic ulcer disease with possible gastric versus duodenal ulcer. 2. Poorly controlled hypertension. This could be a factor for the patient's current episodes of nausea and vomiting also. 3. Known history of chronic renal failure on dialysis. 4. Known history of depression, severe anxiety syndrome, was status post cholecystectomy. SUGGESTION: 1. Agree with your plan. 2. Add small dose of Flagyl 500 mg intravenously once a day. 3. Abdominal and pelvic ultrasound. 4. Reglan intravenously. 5. Proton pump inhibitors intravenously. 6. Upper endoscopy on the patient is more stable clinically. Shon Brambila MD
--- NOTE | 2017-06-22 11:35 | CARD ---
APPROVED REPORT EKG Measurement Heart [id number] <Conclusion> Sinus bradycardia with sinus arrhythmia Otherwise normal ECG
== END 2017-06-20 12:54 | disposition home or self-care (01) ==
LOC: C.ER 10:09 → C.6T 18:09 → C.9E 18:09 → C.6T 18:09 → INTOOBSV 18:09 → C.9E 18:09 → UNDOADMIN 18:22
PROVIDERS: ADMIT Internal Medicine Pulmonary Disease; ATTEND Internal Medicine Pulmonary Disease
DX: I13.2 Hypertensive heart and chronic kidney disease with heart failure and with stage 5 chronic kidney disease, or end stage renal disease (principal); I50.9 Heart failure, unspecified; N18.6 End stage renal disease; E87.2 Acidosis; Z87.891 Personal history of nicotine dependence; Z91.15 Patient's noncompliance with renal dialysis; Z99.2 Dependence on renal dialysis; D72.829 Elevated white blood cell count, unspecified; F41.9 Anxiety disorder, unspecified; F32.9 Major depressive disorder, single episode, unspecified
CPT/HCPCS: 36415; 74176; 80053; 81001; 82150; 82378; 83690; 84703; 85025; 85610; 85730; 86301; 86304; 87086; 87340; 93005; 96372; 96374; 96375; 99284; C9113; G0257; G0378; J1170; J1650; J2270; J2405; Q9966

== ENCOUNTER 2017-06-30 11:01 | Day surgery (SDC) | payer OTHER ==
[2017-06-25 12:47] VITALS: BMI 22.7
[2017-06-30] MEDS ORDERED: HEPARIN-NS 5,000 UNITS/500 ML 5,000 UNIT/500 ML BAG IV ONE (11:14)
[2017-06-30] MEDS ORDERED: Iohexol 240 200 ML ONE (11:16)
[2017-06-30 12:06] VITALS: O2SAT 100
[2017-06-30 12:37] LABS: ALB/GLOB RATIO 1.5 (1.0-2.1); ALBUMIN 4.4 g/dL (3.5-5.0); CALCIUM 9.9 mg/dl (8.6-10.4)
[2017-06-30] MEDS ORDERED: Sodium Chloride 0.9% 1,000 ML IV ONE (13:15)
[2017-06-30] MEDS ORDERED: Propofol 10 mg/ml Inj (20 ML) ONE (13:19)
[2017-06-30] MEDS ORDERED: Midazolam 2 MG/2 ML VIAL ONE (13:19)
[2017-06-30] MEDS ORDERED: ceFAZolin IV 2 gm in Dextrose 0 GM/0 ML BAG IVPB ONE (13:41)
[2017-06-30] MEDS ORDERED: ceFAZolin IV 1 gm in Dextrose 1 GM/50 ML BAG IVPB ONE (13:41)
[2017-06-30] MEDS ORDERED: Papaverine Hydrochloride 30 mg/ml (2ml) ONE (14:18)
[2017-06-30] MEDS ORDERED: HYDROmorphone 1 mg/ml ISec IVP STA (15:26)
--- NOTE | 2017-06-30 15:29 | PCM.SURG1 ---
Surgeon's Initial Post Op Note - Surgeon's Notes Surgeon: Dr. Burgos Video Tape Transferrer: Dr. Downs, PGY-1, Gokul Paris, S-III Type of Anesthesia: General LMA Pre-Operative Diagnosis: Failed LUE AVF, End-Stage Renal Disease Requiring Dialysis Operative Findings: See op report Post-Operative Diagnosis: Failed LUE AVF, End-Stage Renal Disease Requiring Dialysis Operation Performed: Basillic to Brachial AVF Creation Specimen/Specimens Removed: None Estimated Blood Loss: EBL {In ML}: 25 Blood Products Given: N/A Drains Used: No Drains Post-Op Condition: Good Date of Surgery/Procedure: 06/30/17 Time of Surgery/Procedure: 15:29
[2017-06-30] MEDS: HYDROmorphone 0.5 mg/0.5 ml ISec IVP PRN ×2 (15:48→16:06)
[2017-06-30 17:01] VITALS: TEMP 97.2
[2017-06-30 17:22] VITALS: BP 140/92; PULSE 112; RESP 18
--- NOTE | 2017-06-30 23:35 | OP ---
PROCEDURE DATE: 06/30/2017 PREOPERATIVE DIAGNOSIS: Renal failure. POSTOPERATIVE DIAGNOSIS: Renal failure. PROCEDURE CARRIED OUT: Brachiobasilic fistula, left elbow. SURGEON: Mina Burgos Jr., M.D. CASTING MACHINE SET UP OPERATOR: Dr. Downs. ANESTHESIOLOGIST: Mr. Kelly. INDICATIONS: The patient is a 37-year-old woman with renal insufficiency, initially planned peritoneal dialysis. She is currently dialyzed through a catheter. She has a cephalic vein fistula which has failed unexpectedly in her arm. OPERATIVE FINDINGS: The basilic vein was of adequate size in caliber. We did a re-channel back to the brachial vein higher up in the arm on the ultrasound exam. Nonetheless at the end of the procedure, we had good pulse at the wrist and good flow through the fistula. PROCEDURE IN DETAILS: The patient was given general anesthesia and intravenous antibiotics. The arm was dissected free from the surrounding tissues. An end-to-side fistula using a spatulated technique was then carried out to the side of the brachial artery. There was excellent flow. There was a palpable pulse distally. After the anastomosis had been completed, we then closed the wounds with Monocryl and Vicryl sutures, nylon sutures on the skin. Blood loss was 20 mL to 25 mL. Operation carried out was brachiobasilic fistula, left arm. Mina Burgos Jr., MD CC: Romario Jordan MD
== END 2017-06-30 17:18 | disposition home or self-care (01) ==
LOC: C.SDS 11:01
PROVIDERS: ATTEND Surgery Vascular Surgery
DX: I12.0 Hypertensive chronic kidney disease with stage 5 chronic kidney disease or end stage renal disease (principal); N18.6 End stage renal disease; Z99.2 Dependence on renal dialysis
CPT/HCPCS: 36415; 36821; 80053; J0690; J1170; J1644; J2250; J2704; J3010; J7030; J7040

== ENCOUNTER 2017-07-28 10:42 | Day surgery (SDC) | payer OTHER ==
[~2017-07-28 10:42] MED LIST: HEPARIN-NS 5,000 UNITS/500 ML 5,000 UNIT/500 ML BAG IV ONE; Iodixanol 320 MG/ML 200 ML BOTTLE IV ONE
[2017-07-28] MEDS ORDERED: Propofol 10 mg/ml Inj (20 ML) ONE ×2 (11:00→12:01)
[2017-07-28] MEDS ORDERED: Midazolam 2 MG/2 ML VIAL ONE (11:00)
[2017-07-28] MEDS ORDERED: Iohexol 240 200 ML ONE (11:22)
[2017-07-28] MEDS ORDERED: ceFAZolin IV 1 gm in Dextrose 1 GM/50 ML BAG IVPB ONE (11:22)
[2017-07-28 11:31] LABS: CALCIUM 9.9 mg/dl (8.6-10.4)
[2017-07-28] MEDS ORDERED: Sodium Chloride 0.9% 500 ML IV ONE (11:45)
[2017-07-28 11:59] VITALS: O2SAT 100; BMI 22.7
[2017-07-28] MEDS ORDERED: HEPARIN-NS 5,000 UNITS/500 ML 5,000 UNIT/500 ML BAG IV ONE (12:38)
[2017-07-28] MEDS ORDERED: Lactated Ringer's 500 ML IV ONE (13:45)
[2017-07-28] MEDS ORDERED: Sodium Chloride 0.9% 1,000 ML IV ONE (14:30)
--- NOTE | 2017-07-28 14:35 | PCM.SURG1 ---
Surgeon's Initial Post Op Note - Surgeon's Notes Surgeon: Dr. Burgos Hot Metal Mixer Operator: Clive PGY1; Robin MS3 Type of Anesthesia: General Endo Pre-Operative Diagnosis: Renal Failure Operative Findings: See operative report Post-Operative Diagnosis: same Operation Performed: Left arm BrachioBrachial AV Shunt with GORE Hybrid vascular graft Specimen/Specimens Removed: none Estimated Blood Loss: EBL {In ML}: 150 Blood Products Given: N/A Drains Used: No Drains Post-Op Condition: Good Date of Surgery/Procedure: 07/28/17 Time of Surgery/Procedure: 14:34
[2017-07-28] MEDS ORDERED: Oxycodone/Acetaminophen 5/325 mg Tab PO PRN (14:36)
[2017-07-28] MEDS: HYDROmorphone 0.5 mg/0.5 ml ISec IVP PRN ×4 (14:40→15:29)
--- NOTE | 2017-07-28 15:16 | RAD ---
PROCEDURE: Intraoperative Fluoroscopy. HISTORY: RENAL FAILURE FINDINGS: Fluoroscopic assistance was provided for venous access manipulation. Please refer to the operative report from CHRISTI Wahl. Total fluoroscopic time (continuous mode) utilized during the procedure: 54.3 seconds. Total exam DLP: (mGy) 10.24.
[2017-07-28 17:45] VITALS: BP 120/72; PULSE 80; RESP 18; TEMP 97
--- NOTE | 2017-07-29 01:32 | OP ---
DATE: 07/28/2017 PREOPERATIVE DIAGNOSIS: Renal failure, failed fistula. PROCEDURE CARRIED OUT: Brachial hybrid shunt, left upper arm. SURGEON: Mina Burgos Jr., M.D. TELEVISION MECHANIC: Dr. Thai Duffy. ANESTHESIOLOGIST: Alcira Millard CRNA. INDICATIONS: A 37-year-old woman with renal insufficiency, two previous failed fistulas in the arm, now placed a shunt. OPERATIVE FINDINGS: At the end of the procedure, there was diminution of the pulse at the wrist but there was excellent flow. The rest of the intraoperative findings were unremarkable. The completion angiogram showed no evidence of significant stenosis in the central veins or in the perianastomotic area or in the dilated area where the stent had been placed. DESCRIPTION OF PROCEDURE: The patient was given general anesthesia. The vein and the artery and the axilla were dissected free. Subcutaneous tunnel was created. The venous anastomosis was carried out first by deploying an 8 x 5 mm Viabahn stent, which was attached to a Hybrid shunt. We then brought this to the tunnel, and then anastomosed under loube magnification and heparin anticoagulation to the adjacent artery. There was excellent flow. There was diminution of pulse at the wrist but excellent . We then terminated the procedure, closed the wounds. Blood loss 125 mL. No operative complications or problems. After the shunt have been deployed, we subsequently inflated with an 8 mm balloon with excellent cosmetic results, and a completion angiography demonstrated free flow proximally and distally. The procedure was then terminated. Operation carried out, hybrid shunt left upper arm. Mina Burgos Jr., MD cc: Romario Jordan MD
== END 2017-07-28 17:48 | disposition home or self-care (01) ==
LOC: C.SDS 10:42
PROVIDERS: ATTEND Surgery Vascular Surgery
DX: N18.6 End stage renal disease (principal)
CPT/HCPCS: 36415; 36830; 80048; C1725; C1768; C1769; C1894; J0690; J1170; J1644; J2250; J2704; J3010; J7030; J7040; J7120

== ENCOUNTER 2017-08-23 20:38 | Emergency (ER) | payer OTHER ==
[2017-08-23 20:39] VITALS: BMI 22.7
[2017-08-23 20:50] VITALS: TEMP 98.3
[2017-08-23] MEDS ORDERED: Aluminum Hydroxide/Magnesium Hydroxide Susp (30 mL) PO STA (21:56)
--- NOTE | 2017-08-23 21:58 | C.PDOC ---
History Of Present Illness 37 year old female with PMHx of HTN and ESRD presents to the ED c/o abdominal pain for the past 3 weeks. Patient reports she went to [facility] where she was diagnosed with gastritis but was only given Tylenol and no medications for the gastritis. Patient reports she goes to dialysis 3 days a week, on Thursday, Thursday and Thursday. Patient denies fever, chills, nausea, vomit, diarrhea, back pain. Chief Complaint (Nursing): Abdominal Pain History Per: Patient History/Exam Limitations: no limitations Onset/Duration Of Symptoms: Days Current Symptoms Are (Timing): Still Present Location Of Pain/Discomfort: Diffuse Radiation Of Pain To:: None Quality Of Discomfort: "Pain" Exacerbating Factors: None Alleviating Factors: None Recent travel outside of the [place]: No Additional History Per: Patient Abnormal Vaginal Bleeding: No Past Medical History Reviewed: Historical Data, Nursing Documentation, Vital Signs Vital Signs: Last Vital Signs Temp 98.3 F 08/23/17 20:47 Pulse 97 H 08/23/17 23:19 Resp 20 08/23/17 23:19 BP 180/110 H 08/23/17 23:19 Pulse Ox 100 08/24/17 00:25 - Medical History PMH: Anemia, Anxiety, CHF (November 07 2016), Depression, Gall Bladder Disease, HTN , Kidney Stones (Left), Peripheral Edema (NO LONGER), End Stage Renal Disease, Chronic Kidney Disease Surgical History: Cholecystectomy, Endoscopy - [facility] Procedures (05/25/17) INSERT OF INFUSION DEV INTO PERITON CAV, PERC ENDO APPROACH (11/08/16) INSERTION OF INFUSION DEV INTO SUP VENA CAVA, PERC APPROACH (05/25/17) IRRIGATION OF PERITON CAV USING DIALYSATE, PERC APPROACH (03/28/17) PERFORMANCE OF BILIARY FILTRATION, MULTIPLE (05/25/17) PERFORMANCE OF URINARY FILTRATION, SINGLE (12/31/16) PLAIN RADIOGRAPHY OF BILE DUCTS USING OTHER CONTRAST (11/29/16) RESECTION OF GALLBLADDER, PERCUTANEOUS ENDOSCOPIC APPROACH (11/29/16) Family History: States: Unknown Family Hx - Social History Hx Alcohol Use: No Hx Substance Use: No - Immunization History Hx Tetanus Toxoid Vaccination: No Hx Influenza Vaccination: Yes Hx Pneumococcal Vaccination: No Review Of Systems Constitutional: Negative for: Fever, Chills Cardiovascular: Negative for: Chest Pain Respiratory: Negative for: Shortness of Breath Gastrointestinal: Positive for: Abdominal Pain. Negative for: Nausea, Vomiting Genitourinary: Negative for: Dysuria Musculoskeletal: Negative for: Back Pain Skin: Negative for: Rash Neurological: Negative for: Weakness, Numbness Physical Exam - Physical Exam Appears: Non-toxic, No Acute Distress Skin: Normal Color, Warm, Dry Head: Atraumatic, Normacephalic Eye(s): bilateral: Normal Inspection Nose: No Discharge Oral Mucosa: Moist Neck: Normal ROM, Supple Chest: Symmetrical, Other (right chest cath) Cardiovascular: Rhythm Regular, No Murmur Respiratory: Normal Breath Sounds, No Rales, No Rhonchi, No Wheezing Gastrointestinal/Abdominal: Soft, Tenderness (mild epigastric), No Guarding, No Rebound Extremity: Normal ROM, No Tenderness, No Swelling, Other (left arm fistulas ) Neurological/Psych: Oriented x3, Normal Speech, Normal Motor, Normal Sensation Gait: Steady ED Course And Treatment - Laboratory Results Result Diagrams: 08/23/17 22:06 08/23/17 22:06 O2 Sat by Pulse Oximetry: 100 (ON RA) Pulse Ox Interpretation: Normal - CT Scan/US CT abd/pelvis Other Rad Studies (CT/US): Read By Radiologist, Radiology Report Reviewed CT/US Interpretation: EXAM: CT Abdomen and Pelvis Without Intravenous Contrast. CLINICAL HISTORY: 37 years old, female; Pain; Abdominal pain; Epigastric; Additional info: Pain, elevated lipase. TECHNIQUE: Axial computed tomography images of the abdomen and pelvis without intravenous contrast. All CT. scans at this facility use one or more dose reduction techniques, viz.: automated exposure control;. ma/kV adjustment per patient size (including targeted exams where dose is matched to indication; i.e. head); or iterative reconstruction technique. Coronal and sagittal reformatted images were created and reviewed. COMPARISON: No relevant prior studies available. FINDINGS: Lung bases: Unremarkable. No mass. No consolidation. ABDOMEN: Liver: Unremarkable. Gallbladder and bile ducts: There has been a cholecystectomy. No ductal dilation. Pancreas: Unremarkable. No ductal dilation. Spleen: Unremarkable. No splenomegaly. Adrenals: Unremarkable. No mass. Kidneys and ureters: There are nonobstructing left renal collecting system calcifications. The right kidney is normal. No obstructing stones. No hydronephrosis.Stomach and bowel: Unremarkable. No obstruction. No mucosal thickening.There is no wall. thickening or pericolonic stranding to suggest colitis. Appendix: A normal appendix is identified. PELVIS: Bladder: Unremarkable. No stones. Reproductive: There is a cystic structure in the left pelvis measuring 6 x 4.8 x 5.5 cm most likely an. ovarian cyst. ABDOMEN and PELVIS: Intraperitoneal space: Unremarkable. No free air. No significant fluid collection. Bones/joints : No acute fracture. No dislocation. Soft tissues: Unremarkable. Vasculature: No abdominal aortic aneurysm. Lymph nodes: Unremarkable. No enlarged lymph nodes. IMPRESSION: No acute intra-abdominal pelvic abnormality. No evidence of acute pancreatitis. Probable left ovarian cyst. Short-interval pelvic ultrasound follow-up (6-12 weeks) is recommended to. ensure resolution. Thank you for allowing us to participate in the care of your patient. Dictated and Authenticated by: Yolande Caceres MD. 08/24/2017 12:23 AM Eastern Time ([place] & [place]) Medical Decision Making Medical Decision Making: Impression: abdominal pain Plan: * Labs * Lipase 600 CT scan was ordered * Lidocaine 2% 15 ml PO * Maalox 30 ml PO * Pepcid 20 mg IVP * Zofran 4 mg IVP Disposition - Disposition Referrals: [facility] [Outside] Disposition: HOME/ ROUTINE Disposition Time: 05:15 Condition: FAIR Prescriptions: oxyCODONE [oxyCODONE Immediate Release Tab] 5 mg PO QID PRN #12 tab PRN Reason: Pain, Mild (1-3) Instructions: Pancreatitis Forms: [facility] (Turkmen) Print Language: KOSOVAN - Clinical Impression Clinical Impression: Pancreatitis - Scribe Statement The provider has reviewed the documentation as recorded by the Scribe Blayne Robertson All medical record entries made by the Scribe were at my direction and personally dictated by me. I have reviewed the chart and agree that the record accurately reflects my personal performance of the history, physical exam, medical decision making, and the department course for this patient. I have also personally directed, reviewed, and agree with the discharge instructions and disposition.
[2017-08-23 22:09] LABS: BASO # 0.1 K/uL (0.0-0.2); BASO % 0.9 % (0.0-2.0); EOS # 0.3 K/uL (0.0-0.7); EOS % 2.2 % (0.0-4.0); HEMOGLOBIN 13.8 g/dL (11.0-16.0); LYMPH # 2.8 K/uL (1.0-4.3); LYMPH % 20.2 % (20.0-40.0); MEAN CORPUSCULAR HEMOGLOBIN 31.2 pg (27.0-31.0); MEAN CORPUSCULAR HGB CONC 33.7 g/dL (33.0-37.0); MEAN PLATELET VOLUME 8.2 fL (7.2-11.7); MONO # 0.8 K/uL (0.0-0.8); MONO % 5.9 % (0.0-10.0); NEUT # 9.7 K/uL (1.8-7.0); NEUT % 70.8 % (50.0-75.0); NRBC % 0.1 % (0.0-2.0); RBC 4.42 Mil/uL (3.80-5.20); RED CELL DISTRIBUTION WIDTH 14.5 % (11.5-14.5); WHITE BLOOD COUNT 13.7 K/uL (4.8-10.8)
[2017-08-23 22:10] LABS: MEAN CELL VOLUME 92.5 fL (81.0-99.0)
[2017-08-23] MEDS ORDERED: Aluminum Hydroxide/Magnesium Hydroxide Susp (30 mL) ONE (22:16)
[2017-08-23 22:21] LABS: ALB/GLOB RATIO 1.2 (1.0-2.1); ALBUMIN 4.8 g/dL (3.5-5.0); ALT/SGPT < 6 U/L (9-52); AST/SGOT 17 U/L (14-36); BLOOD UREA NITROGEN 39 mg/dL (7-17); CALCIUM 9.7 mg/dl (8.6-10.4); GFR AFRICAN-AMERICAN 15; GFR NON-AFRICAN AMERICAN 12; LIPASE 659 U/L (23-300)
[2017-08-23] MEDS ORDERED: Morphine 4 MG/ML VIAL IV ONE (23:02)
[2017-08-23] MEDS ORDERED: Morphine 4 MG/ML VIAL ONE (23:09)
[2017-08-23 23:20] VITALS: BP 180/110; PULSE 97; RESP 20
--- NOTE | 2017-08-24 00:24 | CT ---
EXAM: CT Abdomen and Pelvis Without Intravenous Contrast CLINICAL HISTORY: 37 years old, female; Pain; Abdominal pain; Epigastric; Additional info: Pain, elevated lipase TECHNIQUE: Axial computed tomography images of the abdomen and pelvis without intravenous contrast. All CT scans at this facility use one or more dose reduction techniques, viz.: automated exposure control; ma/kV adjustment per patient size (including targeted exams where dose is matched to indication; i.e. head); or iterative reconstruction technique. Coronal and sagittal reformatted images were created and reviewed. COMPARISON: No relevant prior studies available. FINDINGS: Lung bases: Unremarkable. No mass. No consolidation. ABDOMEN: Liver: Unremarkable. Gallbladder and bile ducts: There has been a cholecystectomy. No ductal dilation. Pancreas: Unremarkable. No ductal dilation. Spleen: Unremarkable. No splenomegaly. Adrenals: Unremarkable. No mass. Kidneys and ureters: There are nonobstructing left renal collecting system calcifications. The right kidney is normal. No obstructing stones. No hydronephrosis. Stomach and bowel: Unremarkable. No obstruction. No mucosal thickening.There is no wall thickening or pericolonic stranding to suggest colitis. Appendix: A normal appendix is identified. PELVIS: Bladder: Unremarkable. No stones. Reproductive: There is a cystic structure in the left pelvis measuring 6 x 4.8 x 5.5 cm most likely an ovarian cyst. ABDOMEN and PELVIS: Intraperitoneal space: Unremarkable. No free air. No significant fluid collection. Bones/joints: No acute fracture. No dislocation. Soft tissues: Unremarkable. Vasculature: No abdominal aortic aneurysm. Lymph nodes: Unremarkable. No enlarged lymph nodes. IMPRESSION: No acute intra-abdominal pelvic abnormality. No evidence of acute pancreatitis. Probable left ovarian cyst. Short-interval pelvic ultrasound follow-up (6-12 weeks) is recommended to ensure resolution.
[2017-08-24 00:25] VITALS: O2SAT 100
== END 2017-08-24 00:49 | disposition home or self-care (01) ==
LOC: C.ER 20:38
DX: K85.90 Acute pancreatitis without necrosis or infection, unspecified (principal); I13.2 Hypertensive heart and chronic kidney disease with heart failure and with stage 5 chronic kidney disease, or end stage renal disease; I50.9 Heart failure, unspecified; N18.6 End stage renal disease; Z87.442 Personal history of urinary calculi; Z99.2 Dependence on renal dialysis; F17.210 Nicotine dependence, cigarettes, uncomplicated
CPT/HCPCS: 74176; 80053; 83690; 85025; 96374; 96375; 99283; J2270; J2405

== ENCOUNTER 2017-08-24 09:58 | Emergency (ER) | payer OTHER ==
[2017-08-24 09:59] VITALS: BMI 22.7
[2017-08-24 10:15] VITALS: TEMP 98.9
[2017-08-24] MEDS ORDERED: Morphine 4 MG/ML VIAL IV STA (10:30)
[2017-08-24 10:49] LABS: BASO # 0.1 K/uL (0.0-0.2); EOS # 0.1 K/uL (0.0-0.7); EOS % 0.9 % (0.0-4.0); HEMOGLOBIN 13.3 g/dL (11.0-16.0); LYMPH # 1.2 K/uL (1.0-4.3); MEAN CELL VOLUME 91.4 fL (81.0-99.0); MEAN CORPUSCULAR HEMOGLOBIN 30.9 pg (27.0-31.0); MEAN CORPUSCULAR HGB CONC 33.8 g/dL (33.0-37.0); MONO # 0.5 K/uL (0.0-0.8); MONO % 3.8 % (0.0-10.0); NEUT # 11.8 K/uL (1.8-7.0); NEUT % 85.3 % (50.0-75.0); PLATELET COUNT 308 K/uL (130-400); RBC 4.31 Mil/uL (3.80-5.20); RED CELL DISTRIBUTION WIDTH 14.4 % (11.5-14.5); WHITE BLOOD COUNT 13.8 K/uL (4.8-10.8)
[2017-08-24] MEDS ORDERED: Morphine 4 MG/ML VIAL ONE (10:49)
[2017-08-24 11:22] LABS: ALB/GLOB RATIO 1.3 (1.0-2.1); ALBUMIN 4.6 g/dL (3.5-5.0); ALT/SGPT < 6 U/L (9-52); AST/SGOT 22 U/L (14-36); BLOOD UREA NITROGEN 36 mg/dL (7-17); CALCIUM 9.8 mg/dl (8.6-10.4); GFR AFRICAN-AMERICAN 16; GFR NON-AFRICAN AMERICAN 13; LIPASE 170 U/L (23-300)
[2017-08-24 11:36] VITALS: BP 151/97; PULSE 89; RESP 18; O2SAT 98
[2017-08-24 11:40] LABS: BANDS 1 % (0-2); BASOPHIL 1 % (0-2); LYMPHOCYTE 8 % (20-40); MONOCYTE 1 % (0-10); NEUTROPHIL 89 % (50-75); PLATELET ESTIMATE NORMAL (NORMAL); TOTAL CELLS COUNTED 100
--- NOTE | 2017-08-24 14:41 | C.PDOC ---
History Of Present Illness 37 year old female presents to the ED for evaluation of epigastric abdominal pain, nausea, and episodes of vomiting (non-bloody and nonbilious) which began yesterday. Patient was evaluated in ED last night for similar symptoms and was discharged. Patient notes she did not take her blood pressure medication this morning. Patient has PMHx of ESRD and is scheduled for dialysis later today. She denies fever, chills, dysuria, and hematuria. Chief Complaint (Nursing): Abdominal Pain History Per: Patient History/Exam Limitations: no limitations Onset/Duration Of Symptoms: Hrs Current Symptoms Are (Timing): Still Present Location Of Pain/Discomfort: Epigastric Radiation Of Pain To:: None Quality Of Discomfort: "Pain" Associated Symptoms: Nausea, Vomiting. denies: Fever, Chills, Urinary Symptoms Additional History Per: Patient Abnormal Vaginal Bleeding: No Past Medical History Reviewed: Historical Data, Nursing Documentation, Vital Signs Vital Signs: Last Vital Signs Temp 98.9 F 08/24/17 11:36 Pulse 89 08/24/17 11:36 Resp 18 08/24/17 11:36 BP 151/97 H 08/24/17 11:36 Pulse Ox 98 08/24/17 15:10 - Medical History PMH: Anemia, Anxiety, CHF (November 07 2016), Depression, Gall Bladder Disease, HTN , Kidney Stones (Left), Peripheral Edema (NO LONGER), End Stage Renal Disease, Chronic Kidney Disease Surgical History: Cholecystectomy, Endoscopy - [facility] Procedures (05/25/17) INSERT OF INFUSION DEV INTO PERITON CAV, PERC ENDO APPROACH (11/08/16) INSERTION OF INFUSION DEV INTO SUP VENA CAVA, PERC APPROACH (05/25/17) IRRIGATION OF PERITON CAV USING DIALYSATE, PERC APPROACH (03/28/17) PERFORMANCE OF BILIARY FILTRATION, MULTIPLE (05/25/17) PERFORMANCE OF URINARY FILTRATION, SINGLE (12/31/16) PLAIN RADIOGRAPHY OF BILE DUCTS USING OTHER CONTRAST (11/29/16) RESECTION OF GALLBLADDER, PERCUTANEOUS ENDOSCOPIC APPROACH (11/29/16) Family History: States: Unknown Family Hx - Social History Hx Alcohol Use: No Hx Substance Use: No - Immunization History Hx Tetanus Toxoid Vaccination: No Hx Influenza Vaccination: Yes Hx Pneumococcal Vaccination: No Review Of Systems Constitutional: Negative for: Fever, Chills Gastrointestinal: Positive for: Nausea, Vomiting, Abdominal Pain (epigastric ) Genitourinary: Negative for: Dysuria, Hematuria Physical Exam - Physical Exam Appears: Non-toxic, No Acute Distress Skin: Normal Color, Warm, Dry, Other (right subclavian HD graft ) Head: Atraumatic, Normacephalic Eye(s): bilateral: Normal Inspection Oral Mucosa: Moist Neck: Supple Chest: Symmetrical, No Deformity, No Tenderness Cardiovascular: Rhythm Regular, No Murmur Respiratory: Normal Breath Sounds, No Rales, No Rhonchi, No Wheezing Gastrointestinal/Abdominal: Soft, Tenderness (epigastric ), No Guarding, No Rebound Extremity: Normal ROM, Capillary Refill (less than 2 seconds ), Other (AV graft to left upper extremity with good thrill and bruit ) Neurological/Psych: Oriented x3, Normal Speech, Normal Cognition ED Course And Treatment - Laboratory Results Result Diagrams: 08/24/17 10:45 08/24/17 10:45 ECG Rhythm: Sinus Tachycardia Rate From EC O2 Sat by Pulse Oximetry: 98 (on RA) Pulse Ox Interpretation: Normal Reassessment Condition: Improved Medical Decision Making Medical Decision Making: Impression: 37 year old female with epigastric pain, nausea, and vomiting Plan: * bloodwork * EKG * Catapres PO * Morphine IV * Norvasc PO * Pepcid IVP * Zofran IVP * reassess and disposition Progress: Bloodwork and EKG ordered and reviewed. Catapres PO, Morphine IV, Norvasc PO, Pepcid IVP and Zofran IVP administered. On reassessment, patient is resting comfortably, showing no signs of distress, and reports an improvement in her symptoms. Her blood pressure is currently 150/ 97. Patient is stable for discharge. She is advised to attend her dialysis session as scheduled and to f/u with her PMD within 1-2 days for further evaluation. Disposition - Disposition Referrals: Joseph Zuleta MD [Staff Provider] - Disposition: HOME/ ROUTINE Disposition Time: 11:20 Condition: IMPROVED Additional Instructions: Thank you for letting us take care of you today. The emergency medical care you received today was directed at your acute symptoms. If you were prescribed any medication, please fill it and take as directed. It may take several days for your symptoms to resolve. Return to the Emergency Department if your symptoms worsen, do not improve, or if you have any other problems. Please contact your doctor or call one of the physicians/clinics you have been referred to that are listed on the Patient Visit Information form that is included in your discharge packet. Bring any paperwork you were given at discharge with you along with any medications you are taking to your follow up visit. Our treatment cannot replace ongoing medical care by a primary care provider (PCP) outside of the emergency department. Thank you for allowing the [facility] team to be part of your care today. Follow up with your primary care doctor in 2-3 days for re-evaluation and further management. Prescriptions: Ondansetron ODT [Zofran ODT] 8 mg PO Q8 PRN #15 odt PRN Reason: Nausea/Vomiting Instructions: Pancreatitis (DC) Forms: [facility] (Burundian) - Clinical Impression Clinical Impression: Abdominal pain - Scribe Statement The provider has reviewed the documentation as recorded by the Scribe (Luz Orr) Provider Attestation: All medical record entries made by the Scribe were at my direction and personally dictated by me. I have reviewed the chart and agree that the record accurately reflects my personal performance of the history, physical exam, medical decision making, and the department course for this patient. I have also personally directed, reviewed, and agree with the discharge instructions and disposition.
--- NOTE | 2017-08-25 12:27 | CARD ---
APPROVED REPORT EKG Measurement Heart [id number] <Conclusion> Sinus tachycardia Otherwise normal ECG
== END 2017-08-24 12:02 | disposition home or self-care (01) ==
LOC: C.ER 09:58
DX: R10.13 Epigastric pain (principal); I10 Essential (primary) hypertension
CPT/HCPCS: 80053; 83690; 84484; 85025; 93005; 96374; 96375; 99284; J2270; J2405

== ENCOUNTER 2017-09-05 20:26 | Emergency (ER) | payer OTHER ==
[2017-09-05 20:26] VITALS: BMI 22.7
--- NOTE | 2017-09-05 21:22 | C.PDOC ---
History Of Present Illness 37 y/o female, w/PMhx of kidney stones and end stage renal disease, presents to the ER complaining of recurrent epigastric pain which has been present since yesterday. Patient states that she was seen in [facility] ER on 08/23/17 and 08/24/17 for similar complaints. She was diagnosed with possible pancreatitis and discharged. Patient states that the pain resolved. She followed up with her PMD and she has an outpatient MRI and US done. She is complain with her GI medications. Of note, she had her last dialysis yesterday. Her dialysis physician is Dr. Jordan. Time Seen by Provider: 09/05/17 21:16 Chief Complaint (Nursing): Abdominal Pain History Per: Patient History/Exam Limitations: no limitations Onset/Duration Of Symptoms: Days Current Symptoms Are (Timing): Still Present Severity: Moderate Past Medical History Reviewed: Historical Data, Nursing Documentation, Vital Signs Vital Signs: Last Vital Signs Temp 98.8 F 09/05/17 20:38 Pulse 58 L 09/05/17 20:38 Resp 20 09/05/17 20:38 BP 156/92 H 09/05/17 20:38 Pulse Ox 100 09/05/17 21:55 - Medical History PMH: Anemia, Anxiety, CHF (November 07 2016), Depression, Gall Bladder Disease, HTN , Kidney Stones (Left), Peripheral Edema (NO LONGER), End Stage Renal Disease, Chronic Kidney Disease Surgical History: Cholecystectomy, Endoscopy - [facility] Procedures (05/25/17) INSERT OF INFUSION DEV INTO PERITON CAV, PERC ENDO APPROACH (11/08/16) INSERTION OF INFUSION DEV INTO SUP VENA CAVA, PERC APPROACH (05/25/17) IRRIGATION OF PERITON CAV USING DIALYSATE, PERC APPROACH (03/28/17) PERFORMANCE OF BILIARY FILTRATION, MULTIPLE (05/25/17) PERFORMANCE OF URINARY FILTRATION, SINGLE (12/31/16) PLAIN RADIOGRAPHY OF BILE DUCTS USING OTHER CONTRAST (11/29/16) RESECTION OF GALLBLADDER, PERCUTANEOUS ENDOSCOPIC APPROACH (11/29/16) Family History: States: No Known Family Hx - Social History Hx Alcohol Use: No Hx Substance Use: No - Immunization History Hx Tetanus Toxoid Vaccination: No Hx Influenza Vaccination: Yes Hx Pneumococcal Vaccination: No Physical Exam - Physical Exam Appears: Non-toxic, No Acute Distress Skin: Normal Color, Warm Head: Atraumatic, Normacephalic Eye(s): bilateral: Normal Inspection Gastrointestinal/Abdominal: Soft, Tenderness (mild epigastric tenderness ) Neurological/Psych: Oriented x3, Normal Speech ED Course And Treatment - Laboratory Results Result Diagrams: 09/05/17 21:35 09/05/17 21:35 O2 Sat by Pulse Oximetry: 100 (RA) Pulse Ox Interpretation: Normal Progress - Re-Evaluation Re-evaluation Note: 09/05/17 22:23 APPEARS COMFORTABLE NAD NO S/S ACUTE ABD. LABS IMPROVED FROM PRIOR EVAL. DC PEPCID, PAIN RX, FU GI - Data Reviewed Data Reviewed: Lab, Diagnostic imaging, Old records Medical Decision Making Medical Decision Making: Plan: --Labs --UA --Morphine IV --Zofran IV Disposition Counseled Patient/Family Regarding: Studies Performed, Diagnosis, Need For Followup, Rx Given - Disposition Referrals: YOUR,PMD [Other] Disposition: HOME/ ROUTINE Disposition Time: 22:23 Condition: IMPROVED Prescriptions: Famotidine [Pepcid AC] 10 mg PO QN #30 tablet Ondansetron [Zofran Odt] 4 mg PO TID PRN #9 odt PRN Reason: Nausea/Vomiting oxyCODONE/Acetaminophen [Percocet 5/325 mg Tab] 1 ea PO QID #8 tab Instructions: Acute Abdomen (Belly Pain), Adult (DC) Forms: [facility] (Danish) - Clinical Impression Clinical Impression: Abdominal pain - Scribe Statement The provider has reviewed the documentation as recorded by the Funmi Randolph Provider Attestation: All medical record entries made by the Scribe were at my direction and personally dictated by me. I have reviewed the chart and agree that the record accurately reflects my personal performance of the history, physical exam, medical decision making, and the department course for this patient. I have also personally directed, reviewed, and agree with the discharge instructions and disposition.
[2017-09-05 21:38] LABS: BASO # 0.1 K/uL (0.0-0.2); BASO % 1.2 % (0.0-2.0); EOS # 0.3 K/uL (0.0-0.7); EOS % 2.6 % (0.0-4.0); HEMOGLOBIN 11.9 g/dL (11.0-16.0); LYMPH # 2.1 K/uL (1.0-4.3); LYMPH % 21.1 % (20.0-40.0); MEAN CELL VOLUME 91.5 fL (81.0-99.0); MEAN CORPUSCULAR HEMOGLOBIN 31.7 pg (27.0-31.0); MEAN CORPUSCULAR HGB CONC 34.6 g/dL (33.0-37.0); MEAN PLATELET VOLUME 7.9 fL (7.2-11.7); MONO # 0.6 K/uL (0.0-0.8); MONO % 6.5 % (0.0-10.0); NEUT # 6.8 K/uL (1.8-7.0); NEUT % 68.6 % (50.0-75.0); RBC 3.75 Mil/uL (3.80-5.20); RED CELL DISTRIBUTION WIDTH 14.1 % (11.5-14.5)
[2017-09-05] MEDS ORDERED: Morphine 4 MG/ML VIAL ONE ×2 (21:39→22:32)
[2017-09-05 21:52] LABS: SQUAMOUS EPITHIAL 6 /hpf (0-5); URINE BACTERIA RARE (<OCC); URINE BILIRUBIN NEGATIVE (NEGATIVE); URINE BLOOD NEGATIVE (NEGATIVE); URINE CLARITY Clear (Clear); URINE COLOR Yellow (YELLOW); URINE GLUCOSE (UA) NORMAL (Normal); URINE LEUKOCYTE ESTERASE NEG Leu/uL (Negative); URINE PROTEIN 1+ mg/dL (NEGATIVE)
[2017-09-05 22:09] LABS: ALB/GLOB RATIO 1.4 (1.0-2.1); ALBUMIN 4.6 g/dL (3.5-5.0); ALT/SGPT < 6 U/L (9-52); AST/SGOT 16 U/L (14-36); BLOOD UREA NITROGEN 31 mg/dL (7-17); CALCIUM 9.8 mg/dl (8.6-10.4); GFR AFRICAN-AMERICAN 16; GFR NON-AFRICAN AMERICAN 13; LIPASE 113 U/L (23-300)
[2017-09-05] MEDS ORDERED: Sucralfate 1 gm/10 ml Oral Susp UD PO STA (22:24)
[2017-09-05] MEDS ORDERED: Sucralfate 1 gm/10 ml Oral Susp UD ONE (22:32)
[2017-09-05 22:45] VITALS: BP 136/74; PULSE 78; RESP 18; TEMP 98; O2SAT 98
== END 2017-09-05 22:45 | disposition home or self-care (01) ==
LOC: C.ER 20:26
DX: R10.9 Unspecified abdominal pain (principal); I12.0 Hypertensive chronic kidney disease with stage 5 chronic kidney disease or end stage renal disease; N18.6 End stage renal disease; F17.210 Nicotine dependence, cigarettes, uncomplicated
CPT/HCPCS: 80053; 81001; 83690; 85025; 96374; 96375; 99284; J2270; J2405

== ENCOUNTER 2017-09-23 14:17 | Emergency (ER) | payer OTHER ==
[2017-09-23 14:17] VITALS: BMI 22.7
[2017-09-23 14:39] VITALS: TEMP 98.8
[2017-09-23] MEDS ORDERED: Oxycodone/Acetaminophen 5/325 mg Tab PO STA ×2 (15:39→15:54)
[2017-09-23 15:42] VITALS: RESP 16
[2017-09-23] MEDS ORDERED: Oxycodone/Acetaminophen 5/325 mg Tab ONE (15:54)
[2017-09-23 16:05] LABS: BASO # 0.2 K/uL (0.0-0.2); BASO % 1.8 % (0.0-2.0); EOS # 0.3 K/uL (0.0-0.7); EOS % 2.3 % (0.0-4.0); HEMOGLOBIN 12.4 g/dL (11.0-16.0); LYMPH # 1.6 K/uL (1.0-4.3); LYMPH % 12.1 % (20.0-40.0); MEAN CELL VOLUME 90.2 fL (81.0-99.0); MEAN CORPUSCULAR HEMOGLOBIN 30.6 pg (27.0-31.0); MEAN CORPUSCULAR HGB CONC 33.9 g/dL (33.0-37.0); MEAN PLATELET VOLUME 6.9 fL (7.2-11.7); MONO # 0.6 K/uL (0.0-0.8); MONO % 4.2 % (0.0-10.0); NEUT # 10.4 K/uL (1.8-7.0); NEUT % 79.6 % (50.0-75.0); RBC 4.05 Mil/uL (3.80-5.20); RED CELL DISTRIBUTION WIDTH 14.3 % (11.5-14.5); WHITE BLOOD COUNT 13.1 K/uL (4.8-10.8)
[2017-09-23 16:12] LABS: CALCIUM 9.7 mg/dl (8.6-10.4)
--- NOTE | 2017-09-23 17:04 | C.PDOC ---
History Of Present Illness 37-year-old female, ESRD (HD MWF), presents to the emergency department with complaints of toothache. Patient states she was sent from dialysis due to pain to her right lower first premolar. Dialysis was not done. Denies nausea/vomiting , fever or chills. Time Seen by Provider: 09/23/17 15:14 Chief Complaint (Nursing): Dental Pain History Per: Patient History/Exam Limitations: no limitations Current Symptoms Are (Timing): Still Present Severity: Moderate Past Medical History Reviewed: Historical Data, Nursing Documentation, Vital Signs Vital Signs: Last Vital Signs Temp 98.8 F 09/23/17 14:37 Pulse 98 H 09/23/17 17:11 Resp 16 09/23/17 17:11 BP 190/131 H 09/23/17 17:11 Pulse Ox 100 09/23/17 18:56 - Medical History PMH: Anemia, Anxiety, CHF (November 07 2016), Depression, Gall Bladder Disease, HTN , Kidney Stones (Left), Peripheral Edema (NO LONGER), End Stage Renal Disease, Chronic Kidney Disease Surgical History: Cholecystectomy, Endoscopy - [facility] Procedures (05/25/17) INSERT OF INFUSION DEV INTO PERITON CAV, PERC ENDO APPROACH (11/08/16) INSERTION OF INFUSION DEV INTO SUP VENA CAVA, PERC APPROACH (05/25/17) IRRIGATION OF PERITON CAV USING DIALYSATE, PERC APPROACH (03/28/17) PERFORMANCE OF BILIARY FILTRATION, MULTIPLE (05/25/17) PERFORMANCE OF URINARY FILTRATION, SINGLE (12/31/16) PLAIN RADIOGRAPHY OF BILE DUCTS USING OTHER CONTRAST (11/29/16) RESECTION OF GALLBLADDER, PERCUTANEOUS ENDOSCOPIC APPROACH (11/29/16) Family History: States: No Known Family Hx - Social History Hx Alcohol Use: No Hx Substance Use: No - Immunization History Hx Tetanus Toxoid Vaccination: No Hx Influenza Vaccination: Yes Hx Pneumococcal Vaccination: No Review Of Systems Constitutional: Negative for: Fever ENT: Positive for: Other (teeth pain) Cardiovascular: Negative for: Chest Pain, Palpitations Respiratory: Negative for: Shortness of Breath Gastrointestinal: Negative for: Vomiting Musculoskeletal: Negative for: Back Pain Skin: Negative for: Rash Neurological: Negative for: Headache, Dizziness Physical Exam - Physical Exam Appears: Non-toxic, No Acute Distress Skin: Normal Color, Warm, Dry, No Rash Head: Normacephalic Eye(s): bilateral: PERRL Nose: Normal Oral Mucosa: Moist Lips: Normal Appearing Teeth: No Normal Dentition (Poor), Caries, Other (No abscesses appreciated) Gingiva: No Swelling Throat: No Erythema, No Exudate, No Drooling Neck: Normal ROM Chest: Symmetrical Cardiovascular: Rhythm Regular, No Murmur Respiratory: Normal Breath Sounds, No Accessory Muscle Use Gastrointestinal/Abdominal: Soft, No Tenderness Extremity: Normal ROM, No Deformity, No Swelling Neurological/Psych: Oriented x3, Normal Speech ED Course And Treatment - Laboratory Results Result Diagrams: 09/23/17 15:52 09/23/17 15:52 O2 Sat by Pulse Oximetry: 100 (RA) Pulse Ox Interpretation: Normal Progress Note: Pt treated with Catapres, Percocet, Penicillin. Labs shows stable K, patient doesn't need emergent HD and is stable to be d/c home. She was instructed to call her HD center tomorrow. Disposition - Disposition Disposition: HOME/ ROUTINE Disposition Time: 17:04 Condition: STABLE Additional Instructions: Follow up with Dentist and [facility]ic within 1-2 days. Return to ED if feel worse. Prescriptions: Penicillin VK [Penicillin VK Tab] 500 mg PO Q6 #28 tab oxyCODONE/Acetaminophen [Percocet 5/325 mg Tab] 1 tab PO QID PRN #10 tab PRN Reason: Pain Instructions: Tooth Decay, Adult Forms: [facility] (Cayman Islander) - Clinical Impression Clinical Impression: Dental caries, Uncontrolled hypertension - Scribe Statement The provider has reviewed the documentation as recorded by the Scribe (Fer Baptiste) All medical record entries made by the Scribe were at my direction and personally dictated by me. I have reviewed the chart and agree that the record accurately reflects my personal performance of the history, physical exam, medical decision making, and the department course for this patient. I have also personally directed, reviewed, and agree with the discharge instructions and disposition.
[2017-09-23 17:12] VITALS: BP 190/131; PULSE 98
[2017-09-23 18:48] VITALS: O2SAT 100
== END 2017-09-23 17:22 | disposition home or self-care (01) ==
LOC: C.ER 14:17
DX: K02.9 Dental caries, unspecified (principal); I10 Essential (primary) hypertension; F17.210 Nicotine dependence, cigarettes, uncomplicated

== ENCOUNTER 2017-10-12 04:10 | Emergency (ER) | payer OTHER ==
[2017-10-12 04:11] VITALS: BMI 22.7
[2017-10-12] MEDS ORDERED: Sodium Chloride 0.9% 1,000 ML ONE (04:27)
[2017-10-12 04:29] VITALS: RESP 20
[2017-10-12] MEDS ORDERED: Morphine 4 MG/ML VIAL ONE (04:32)
--- NOTE | 2017-10-12 04:34 | C.PDOC ---
History Of Present Illness 37 year old female with PMHx of CKD currently on dialysis 3 times a week, HTN. Patient states yesterday morning patient developed an epigastric pain. Patient started vomiting several hours ago, vomit is yellow bitter tasting non bloody. Patient denies any history of peptic ulcer disease, weakness, numbness, fever, chills. Time Seen by Provider: 10/12/17 04:32 Chief Complaint (Nursing): Abdominal Pain History Per: Patient History/Exam Limitations: no limitations Onset/Duration Of Symptoms: Days Current Symptoms Are (Timing): Still Present Severity: None Location Of Pain/Discomfort: Epigastric Quality Of Discomfort: "Pain" Associated Symptoms: Vomiting Exacerbating Factors: None Alleviating Factors: None Recent travel outside of the [place]: No Additional History Per: Patient Abnormal Vaginal Bleeding: No Past Medical History Reviewed: Historical Data, Nursing Documentation, Vital Signs Vital Signs: Last Vital Signs Temp 98.1 F 10/12/17 05:57 Pulse 98 H 10/12/17 05:57 Resp 20 10/12/17 05:57 BP 169/66 H 10/12/17 05:57 Pulse Ox 99 10/12/17 05:57 - Medical History PMH: Anemia, Anxiety, CHF, Depression, Gall Bladder Disease, HTN, Kidney Stones (Left), Peripheral Edema (NO LONGER), End Stage Renal Disease, Chronic Kidney Disease Surgical History: Cholecystectomy, Endoscopy - [facility] Procedures (05/25/17) INSERT OF INFUSION DEV INTO PERITON CAV, PERC ENDO APPROACH (11/08/16) INSERTION OF INFUSION DEV INTO SUP VENA CAVA, PERC APPROACH (05/25/17) IRRIGATION OF PERITON CAV USING DIALYSATE, PERC APPROACH (03/28/17) PERFORMANCE OF BILIARY FILTRATION, MULTIPLE (05/25/17) PERFORMANCE OF URINARY FILTRATION, SINGLE (12/31/16) PLAIN RADIOGRAPHY OF BILE DUCTS USING OTHER CONTRAST (11/29/16) RESECTION OF GALLBLADDER, PERCUTANEOUS ENDOSCOPIC APPROACH (11/29/16) Family History: States: Unknown Family Hx - Social History Hx Alcohol Use: No Hx Substance Use: No - Immunization History Hx Tetanus Toxoid Vaccination: No Hx Influenza Vaccination: No Hx Pneumococcal Vaccination: No Review Of Systems Constitutional: Negative for: Fever, Chills Cardiovascular: Negative for: Chest Pain Respiratory: Negative for: Shortness of Breath Gastrointestinal: Positive for: Vomiting, Abdominal Pain Skin: Negative for: Rash Physical Exam - Physical Exam Appears: Non-toxic, In Acute Distress, Other (dry heaving on questioning) Skin: Normal Color, Warm, Dry Head: Atraumatic, Normacephalic Eye(s): bilateral: Normal Inspection Oral Mucosa: Moist Neck: Normal ROM, Supple Chest: Symmetrical Cardiovascular: Rhythm Regular, No Murmur Respiratory: Normal Breath Sounds, No Rales, No Rhonchi, No Wheezing Gastrointestinal/Abdominal: Soft, Tenderness (epigastric ), Guarding (voluntary) , No Rebound Extremity: Normal ROM, No Tenderness, No Swelling, Other (Av graft on left upper arm with positive thrill) Pulses: Left Dorsalis Pedis: Normal, Right Dorsalis Pedis: Normal Neurological/Psych: Oriented x3, Normal Speech, Normal Motor, Normal Sensation, Other (Non focal) Gait: Steady ED Course And Treatment - Laboratory Results Result Diagrams: 10/12/17 04:40 10/12/17 04:40 O2 Sat by Pulse Oximetry: 96 (ON RA) Pulse Ox Interpretation: Normal Medical Decision Making Medical Decision Making: Impression: gastritis vs GERD vs peptic ulcer disease Plan: * Labs * Compazine 5 mg IVP * Morphine 4 mg IVP * Protonix 40 mg IVP 05:45- Patient is requesting more pain medications. [place] was [place] and reveals patient had exact same presentation at least 10 times in the past 6 months. Patient goes to Dr. Bonilla for pain management, will referred back to him for further care. Disposition - Disposition Referrals: Chastity Zuleta MD [Medical Doctor] - Disposition: HOME/ ROUTINE Disposition Time: 06:01 Condition: FAIR Instructions: Acute Abdomen (Belly Pain) Forms: [facility] (Amharic) Print Language: ESTONIAN - Clinical Impression Clinical Impression: Epigastric abdominal pain - Scribe Statement The provider has reviewed the documentation as recorded by the Scribe Blayne Robertson All medical record entries made by the Scribe were at my direction and personally dictated by me. I have reviewed the chart and agree that the record accurately reflects my personal performance of the history, physical exam, medical decision making, and the department course for this patient. I have also personally directed, reviewed, and agree with the discharge instructions and disposition.
[2017-10-12 04:44] LABS: BASO # 0.1 K/uL (0.0-0.2); BASO % 0.9 % (0.0-2.0); EOS # 0.2 K/uL (0.0-0.7); EOS % 1.4 % (0.0-4.0); HEMOGLOBIN 14.5 g/dL (11.0-16.0); LYMPH # 1.8 K/uL (1.0-4.3); LYMPH % 13.3 % (20.0-40.0); MEAN CELL VOLUME 90.3 fL (81.0-99.0); MEAN CORPUSCULAR HEMOGLOBIN 30.4 pg (27.0-31.0); MEAN CORPUSCULAR HGB CONC 33.7 g/dL (33.0-37.0); MONO # 0.6 K/uL (0.0-0.8); MONO % 4.2 % (0.0-10.0); NEUT # 10.9 K/uL (1.8-7.0); NEUT % 80.2 % (50.0-75.0); NRBC % 0.1 % (0.0-2.0); RBC 4.75 Mil/uL (3.80-5.20); RED CELL DISTRIBUTION WIDTH 14.4 % (11.5-14.5); WHITE BLOOD COUNT 13.6 K/uL (4.8-10.8)
[2017-10-12 04:56] LABS: ALB/GLOB RATIO 1.4 (1.0-2.1); ALBUMIN 4.8 g/dL (3.5-5.0); CALCIUM 10.5 mg/dl (8.6-10.4)
[2017-10-12 05:58] VITALS: BP 169/66; PULSE 98; TEMP 98.1
[2017-10-12 06:02] VITALS: O2SAT 96
== END 2017-10-12 05:58 | disposition home or self-care (01) ==
LOC: C.ER 04:10
DX: R10.13 Epigastric pain (principal)
CPT/HCPCS: 80053; 83690; 85025; 96374; 96375; 99285; C9113; J0780; J2270

== ENCOUNTER 2017-12-30 12:51 | Inpatient (IN) | payer MEDICAID, OTHER ==
[2017-12-30 12:52] VITALS: BMI 25.2
--- NOTE | 2017-12-30 13:39 | C.PDOC ---
History Of Present Illness 37 year old female dialysis patient was sent to the ER from dialysis by Dr Jordan after they noticed her graft in her left upper arm was open and sticking out. Denies fever, pain, or other complaints at this time. Time Seen by Provider: 12/30/17 13:26 Chief Complaint (Nursing): Medical Clearance History Per: Patient History/Exam Limitations: no limitations Onset/Duration Of Symptoms: Days Current Symptoms Are (Timing): Still Present Recent travel outside of the [place]: No Past Medical History Reviewed: Historical Data, Nursing Documentation, Vital Signs Vital Signs: Last Vital Signs Temp 99 F 12/30/17 15:15 Pulse 93 H 12/30/17 15:15 Resp 16 12/30/17 15:15 BP 171/111 H 12/30/17 15:30 Pulse Ox 95 12/30/17 17:04 - Medical History PMH: Anemia, Anxiety, CHF, Depression, Gall Bladder Disease, HTN, Kidney Stones (Left), Peripheral Edema, Pneumonia, End Stage Renal Disease, Chronic Kidney Disease Surgical History: Cholecystectomy, Endoscopy - [facility] Procedures (10/13/17) (05/25/17) INSERT OF INFUSION DEV INTO PERITON CAV, PERC ENDO APPROACH (11/08/16) INSERTION OF INFUSION DEV INTO SUP VENA CAVA, PERC APPROACH (05/25/17) IRRIGATION OF PERITON CAV USING DIALYSATE, PERC APPROACH (03/28/17) PERFORMANCE OF BILIARY FILTRATION, MULTIPLE (05/25/17) PERFORMANCE OF URINARY FILTRATION, SINGLE (12/31/16) PLAIN RADIOGRAPHY OF BILE DUCTS USING OTHER CONTRAST (11/29/16) RESECTION OF GALLBLADDER, PERCUTANEOUS ENDOSCOPIC APPROACH (11/29/16) Family History: States: Unknown Family Hx - Social History Hx Alcohol Use: No Hx Substance Use: No - Immunization History Hx Tetanus Toxoid Vaccination: No Hx Influenza Vaccination: Yes Hx Pneumococcal Vaccination: No Review Of Systems Constitutional: Negative for: Fever, Chills Cardiovascular: Negative for: Chest Pain, Palpitations Respiratory: Negative for: Cough, Shortness of Breath Gastrointestinal: Negative for: Nausea, Vomiting Skin: Positive for: Other (Dialysis graft open) Physical Exam - Physical Exam Appears: Non-toxic Skin: Warm, Dry, Other (Left axillary area dialysis graft sticking out, wound open) Head: Atraumatic, Normacephalic Eye(s): bilateral: Normal Inspection Oral Mucosa: Moist Cardiovascular: Rhythm Regular Respiratory: Normal Breath Sounds, No Rales, No Rhonchi, No Wheezing Gastrointestinal/Abdominal: Soft, No Tenderness Extremity: Normal ROM Neurological/Psych: Oriented x3, Normal Speech Gait: Steady ED Course And Treatment - Laboratory Results Result Diagrams: 12/30/17 13:44 12/30/17 13:44 Lab Interpretation: Abnormal ECG: Interpreted By Me ECG Rhythm: Sinus Rhythm Rate From EC O2 Sat by Pulse Oximetry: 95 (Room air) Pulse Ox Interpretation: Normal Progress Note: Urinalysis, blood work, and EKG ordered. Vanco administered. Reassessment Condition: Unchanged - Physician Consult Information Physician Contacted: Joseph Zuleta Outcome Of Conversation: admit Medical Decision Making Medical Decision Making: Case discussed and patient evaluated by Dr Burgos Consent obtained for dialysis Patient transfered to dialysis Disposition Discussed With .: Joseph Zuleta Doctor Will See Patient In The: Hospital - Disposition Disposition: HOSPITALIZED Disposition Time: 15:30 Condition: STABLE - Clinical Impression Clinical Impression: Problem with dialysis shunt - PA / ROOF FITTER / Resident Statement MD/DO has reviewed & agrees with the documentation as recorded. - Scribe Statement The provider has reviewed the documentation as recorded by the Scribe Nav Carlisle All medical record entries made by the Chapinibjuan were at my direction and personally dictated by me. I have reviewed the chart and agree that the record accurately reflects my personal performance of the history, physical exam, medical decision making, and the department course for this patient. I have also personally directed, reviewed, and agree with the discharge instructions and disposition. Decision To Admit - Pt Status Changed To: Hospital Disposition Of: Inpatient - Admit Certification Admit to Inpatient:: After my assessment, the patient will require hospitalization for at least two midnights. This is because of the severity of symptoms shown, intensity of services needed, and/or the medical risk in this patient being treated as an outpatient. - InPatient: Physician Admission Certification: I certify that this patient requires 2 or more midnights of care for the following reason:: Dialysis shunt problem - . Bed Request Type: Regular Admitting Physician: Joseph Zuleta Patient Diagnosis: Problem with dialysis shunt
[2017-12-30 13:51] LABS: BASO # 0.1 K/uL (0.0-0.2); BASO % 0.5 % (0.0-2.0); EOS # 0.1 K/uL (0.0-0.7); EOS % 0.9 % (0.0-4.0); HEMOGLOBIN 11.5 g/dL (11.0-16.0); LYMPH # 0.9 K/uL (1.0-4.3); LYMPH % 6.8 % (20.0-40.0); MEAN CELL VOLUME 87.2 fL (81.0-99.0); MEAN CORPUSCULAR HEMOGLOBIN 30.2 pg (27.0-31.0); MEAN CORPUSCULAR HGB CONC 34.6 g/dL (33.0-37.0); MEAN PLATELET VOLUME 7.2 fL (7.2-11.7); MONO % 7.3 % (0.0-10.0); NEUT # 11.4 K/uL (1.8-7.0); NEUT % 84.5 % (50.0-75.0); PLATELET COUNT 259 K/uL (130-400); RBC 3.79 Mil/uL (3.80-5.20); RED CELL DISTRIBUTION WIDTH 15.3 % (11.5-14.5); WHITE BLOOD COUNT 13.5 K/uL (4.8-10.8)
[2017-12-30] MEDS ORDERED: Vancomycin 1 GM 1 GM/250 ML BAG IV SCH (14:00)
[2017-12-30 14:01] LABS: ALB/GLOB RATIO 1.5 (1.0-2.1); ALBUMIN 4.6 g/dL (3.5-5.0); CALCIUM 9.8 mg/dl (8.6-10.4)
[2017-12-30] MEDS ORDERED: Vancomycin 1 gm/NS 200 ml 1 GM/200 ML BAG IVPB STA (14:01)
[2017-12-30 14:37] LABS: ANISOCYTOSIS SLIGHT; EOSINOPHIL 1 % (0-4); LYMPHOCYTE 6 % (20-40); MONOCYTE 6 % (0-10); NEUTROPHIL 87 % (50-75); PLATELET ESTIMATE NORMAL (NORMAL); TOTAL CELLS COUNTED 100
[2017-12-30] MEDS ORDERED: Oxycodone/Acetaminophen 5/325 mg Tab PO PRN (19:23)
--- NOTE | 2017-12-30 21:29 | CP.PCM.CON ---
History of Present Illness - History of Present Illness History of Present Illness: Surgery: Dr. 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 Pt states that she has noticed a cyst on the inner part of her L arm over the AVF for the past month. She states that occasionally the cyst would drain pus. She states that she would try to keep it as clean as possible. Today she states that she noticed that goretex graft coming through the skin, prompting her to come to ED. She denies any other complaints and was able to get dialysis through the graft earlier this evening. PMH: CHF, VA, ESRD, depression, anxiety PSH: AVF Meds: MAR reviewed NKDA Social: + Tobacco, no ETOH/drugs Fhx: non-contributory Review of Systems - Review of Systems All systems: reviewed and no additional remarkable complaints except (hpi) Past Patient History - Infectious Disease Hx of Infectious Diseases: None - Past Medical History & Family History Past Medical History?: Yes - Past Social History Smoking Status: Light Smoker < 10 Cigarettes Daily - CARDIAC Hx Congestive Heart Failure: Yes Hx Hypertension: Yes Hx Peripheral Edema: Yes - PULMONARY Hx Pneumonia: Yes - NEUROLOGICAL Hx Neurological Disorder: No - HEENT Hx HEENT Problems: Yes Other/Comment: eyeglasses for reading - RENAL Date of Last Dialysis Treatment: 12/28/17 - ENDOCRINE/METABOLIC Hx Endocrine Disorders: No - HEMATOLOGICAL/ONCOLOGICAL Hx Anemia: Yes - INTEGUMENTARY Hx Dermatological Problems: No - MUSCULOSKELETAL/RHEUMATOLOGICAL Hx Falls: No - GASTROINTESTINAL Hx Gall Bladder Disease: Yes - GENITOURINARY/GYNECOLOGICAL Hx Genitourinary Disorders: No - PSYCHIATRIC Hx Substance Use: No - SURGICAL HISTORY Hx Cholecystectomy: Yes - ANESTHESIA Hx Anesthesia: Yes Hx Anesthesia Reactions: No Hx Malignant Hyperthermia: No Meds Allergies/Adverse Reactions: Allergies Allergy/AdvReac Type Severity Reaction Status Date / Time No Known Allergies Allergy Verified 12/04/17 22:03 - Medications Medications: Current Medications Alprazolam (Xanax) 0.5 mg PO BID PRN PRN Reason: Anxiety Amlodipine Besylate (Norvasc) 10 mg PO DAILY [facility] Clonidine HCl (Catapres) 0.2 mg PO BID [facility] Heparin Sodium (Porcine) (Heparin) 5,000 units SC Q12 [facility] Labetalol HCl (Normodyne) 300 mg PO BID [facility] Oxycodone/Acetaminophen (Percocet 5/325 Mg Tab) 1 tab PO Q6H PRN PRN Reason: Pain, moderate (4-7) Stop: 01/02/18 21:04 Pantoprazole Sodium (Protonix Ec Tab) 40 mg PO DAILY [facility] Physical Exam - Constitutional Appears: Non-toxic, No Acute Distress - Head Exam Head Exam: ATRAUMATIC, NORMOCEPHALIC - Eye Exam Eye Exam: EOMI - ENT Exam ENT Exam: Mucous Membranes Moist - Neck Exam Neck exam: Positive for: Full Rom - Respiratory Exam Respiratory Exam: NORMAL BREATHING PATTERN. absent: Accessory Muscle Use, Respiratory Distress - GI/Abdominal Exam GI & Abdominal Exam: Soft. absent: Distended, Firm, Guarding, Rebound, Rigid, Tenderness - Extremities Exam Additional comments: L UE, exposed graft ~1x1cm over medial portion of proximal bicep, scant purulent drainage, no surrounding erythema - Neurological Exam Neurological exam: Alert, Oriented x3 - Psychiatric Exam Psychiatric exam: Normal Affect, Normal Mood Results - Vital Signs Recent Vital Signs: Last Vital Signs Temp 97.9 F 12/30/17 21:05 Pulse 85 12/30/17 21:05 Resp 20 12/30/17 21:05 BP 151/87 H 12/30/17 21:05 Pulse Ox 96 12/30/17 21:05 - Labs Result Diagrams: 12/30/17 13:44 12/30/17 13:44 Labs: Laboratory Results - last 24 hr 12/30/17 12/30/17 12/30/17 13:44 13:44 13:44 WBC 13.5 H RBC 3.79 L Hgb 11.5 D Hct 33.1 L MCV 87.2 D MCH 30.2 MCHC 34.6 RDW 15.3 H Plt Count 259 D MPV 7.2 Neut % (Auto) 84.5 H Lymph % (Auto) 6.8 L Jewell % (Auto) 7.3 Eos % (Auto) 0.9 Baso % (Auto) 0.5 Neut # (Auto) 11.4 H Lymph # (Auto) 0.9 L Jewell # (Auto) 1.0 H Eos # (Auto) 0.1 Baso # (Auto) 0.1 Neutrophils % (Manual) 87 H Lymphocytes % (Manual) 6 L Monocytes % (Manual) 6 Eosinophils % (Manual) 1 Platelet Estimate Normal Anisocytosis (manual) Slight APTT 32 Sodium 140 Potassium 3.4 L Chloride 99 Carbon Dioxide 21 L Anion Gap 23 H BUN 46 H Creatinine 3.6 H Est GFR ( Amer) 17 Est GFR (Non-Af Amer) 14 Random Glucose 123 H Calcium 9.8 Total Bilirubin 0.6 AST 18 ALT 43 Alkaline Phosphatase 111 Total Protein 7.8 Albumin 4.6 Globulin 3.2 Albumin/Globulin Ratio 1.5 Blood Type Antibody Screen 12/30/17 13:44 WBC RBC Hgb Hct MCV MCH MCHC RDW Plt Count MPV Neut % (Auto) Lymph % (Auto) Jewell % (Auto) Eos % (Auto) Baso % (Auto) Neut # (Auto) Lymph # (Auto) Jewell # (Auto) Eos # (Auto) Baso # (Auto) Neutrophils % (Manual) Lymphocytes % (Manual) Monocytes % (Manual) Eosinophils % (Manual) Platelet Estimate Anisocytosis (manual) APTT Sodium Potassium Chloride Carbon Dioxide Anion Gap BUN Creatinine Est GFR ( Amer) Est GFR (Non-Af Amer) Random Glucose Calcium Total Bilirubin AST ALT Alkaline Phosphatase Total Protein Albumin Globulin Albumin/Globulin Ratio Blood Type A POSITIVE Antibody Screen Negative Assessment & Plan - Assessment and Plan (Free Text) Assessment: 37F w. ESRD with exposed AVF graft -OR tomorrow for permacath and shunt revision -NPO at midnight -consent in chart, risks/benefits d/w pt -d/w attending Pradip PGY4
[2017-12-31] MEDS: Oxycodone/Acetaminophen 5/325 mg Tab PO PRN ×3 (02:22→17:54)
[2017-12-31] MEDS ORDERED: Sodium Chloride 0.9% 1,000 ML IV SCH (05:15)
--- NOTE | 2017-12-31 07:56 | CP.PCM.PN ---
Subjective - Date & Time of Evaluation Date of Evaluation: 12/31/17 Time of Evaluation: 07:52 - Subjective Subjective: 37F w/ a PMH of HTN, ESRD (on HD --), anxiety, depression, chronic abdominal pain, and nephrolithiasis, presented to ED from dialysis center with concern of AV shunt malfunction. Follows up w/ [facility] for dialysis MWF. Of note patient was [place] [facility] [place] for severe left hip pain. She continues to have pain in this area despite cortisone injection. Otherwise no acute changes in health; no acute events overnight. PMD: Joesph Forbes PMH: Clonidine and Labetalol PSH: Cholecystectomy Meds: Amlodipine, Labetolol, Clonidine, Xanax Family Hx: HTN, DM Social HX : Denies EtOH, Smokes 10 cig/day, denies illicit drug use Objective - Vital Signs/Intake and Output Vital Signs (last 24 hours): Temp Pulse Resp BP Pulse Ox 98.6 F 77 20 151/87 H 94 L 12/31/17 00:00 12/31/17 00:00 12/31/17 00:00 12/30/17 21:05 12/31/17 00:00 - Medications Medications: Current Medications Alprazolam (Xanax) 0.5 mg PO BID PRN PRN Reason: Anxiety Last Admin: 12/30/17 22:45 Dose: 0.5 mg Amlodipine Besylate (Norvasc) 10 mg PO DAILY [facility] Clonidine HCl (Catapres) 0.2 mg PO BID [facility] Heparin Sodium (Porcine) (Heparin) 5,000 units SC Q12 [facility] Last Admin: 12/30/17 22:45 Dose: 5,000 units Sodium Chloride (Sodium Chloride 0.9%) 1,000 mls @ 70 mls/hr IV .[id number] [facility] Last Admin: 12/31/17 05:47 Dose: 70 mls/hr Labetalol HCl (Normodyne) 300 mg PO BID [facility] Oxycodone/Acetaminophen (Percocet 5/325 Mg Tab) 1 tab PO Q6H PRN PRN Reason: Pain, moderate (4-7) Stop: 01/02/18 21:04 Last Admin: 12/31/17 02:22 Dose: 1 tab Pantoprazole Sodium (Protonix Ec Tab) 40 mg PO DAILY [facility] - Labs Labs: 12/30/17 13:44 12/30/17 13:44 APTT 32 SECONDS (21-34) 12/30/17 13:44 - Constitutional Appears: No Acute Distress - Head Exam Head Exam: ATRAUMATIC, NORMOCEPHALIC - Eye Exam Eye Exam: EOMI, Normal appearance - ENT Exam ENT Exam: Mucous Membranes Moist - Respiratory Exam Respiratory Exam: Clear to Ausculation Bilateral, NORMAL BREATHING PATTERN - Cardiovascular Exam Cardiovascular Exam: REGULAR RHYTHM, +S1, +S2 - GI/Abdominal Exam GI & Abdominal Exam: Soft. absent: Tenderness - Neurological Exam Neurological Exam: Alert, Awake, Oriented x3 - Psychiatric Exam Psychiatric exam: Normal Affect, Normal Mood - Skin Additional comments: AV shunt not properly situated for use - Additional Findings Additional findings: left hip tender to palpation Assessment and Plan - Assessment and Plan (Free Text) Plan: Malfunctioning AV shunt Consult placed to Dr. Burgos- recs appreciated Will go to OR with Dr. Burgos for revision Given Vanc 1g x1 on 12/31/17 ESRD Consult placed to Dr. Jordan; Recs appreciated HD M-W-F L hip pain Concern for OM F/u MRI L hip Percocet 1-2T PO q4hrs prn pain Afebrile Mildly elevated WBC HTN Norvasc 10mg PO QD [facility] 0.2mg PO BID Labetalol 300mg PO BID Recently elevated- likely due to hip pain/anxiety Anxiety Xanax 0.5mg PO BID PPX Protonix 40mg PO daily Heparin 5000u SC q12hrs Case discussed with Dr. Zuleta All medical management as per Dr. Zuleta
[2017-12-31] MEDS: Sodium Chloride 0.9% 1,000 ML IV SCH (09:00)
--- NOTE | 2017-12-31 09:04 | CP.PCM.CON ---
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 hx of brachiobrachial hybrid AVF presents to ED with exposed goretex graft. Pt states that she has noticed a cyst on the inner part of her L arm over the AVF for the past month. She states that occasionally the cyst would drain pus. She states that she would try to keep it as clean as possible. On 12/30 she states that she noticed that goretex graft coming through the skin, prompting her to come to ED. She denies any other complaints and was able to get dialysis through the graft 12/30 PMH: CHF, [place], ESRD- dialysis x 1 year,HTN, nephrosclerosis, depression, anxiety PSH: AVF, permcath, choleycystectomy, PD cath insertion and removal Meds: MAR reviewed NKDA Social: + Tobacco, no ETOH/drugs Fhx: mother was on dialysis for ESRD Review of Systems - Constitutional Constitutional: Headache, Weakness - EENT Eyes: absent: As Per HPI, Blind Spots, Blurred Vision, Change in Vision, Decreased Night Vision, Diplopia, Discharge, Dry Eye, Exophthalmos, Floaters, Irritation, Itchy Eyes, Loss of Peripheral Vision, Pain, Photophobia, Requires Corrective Lenses, Sees Flashes, Spots in Vision, Tunnel Vision, Other Visual Disturbances, Loss of Vision, Other Ears: absent: As Per HPI, Decreased Hearing, Ear Discharge, Ear Pain, Tinnitus, Abnormal Hearing, Disequilibrium, Dizziness, Other Nose/Mouth/Throat: absent: As Per HPI, Epistaxis, Nasal Congestion, Nasal Discharge, Nasal Obstruction, Nasal Trauma, Nose Pain, Post Nasal Drip, Sinus Pain, Sinus Pressure, Bleeding Gums, Change in Voice, Dental Pain, Dry Mouth, Dysphagia, Halitosis, Hoarsness, Lip Swelling, Mouth Lesions, Mouth Pain, Odynophagia, Sore Throat, Throat Swelling, Tongue Swelling, Facial Pain, Neck Pain, Neck Mass, Other - Cardiovascular Cardiovascular: Dyspnea on Exertion, Lightheadedness - Respiratory Respiratory: absent: As Per HPI, Cough, Dyspnea, Hemoptysis, Dyspnea on Exertion , Wheezing, Snoring, Stridor, Pain on Inspiration, Chest Congestion, Excessive Mucous Production, Change in Mucous Color, Pain with Coughing, Other - Gastrointestinal Gastrointestinal: absent: As Per HPI, Abdominal Pain, Belching, Bloating, Change in Bowel Habits, Change in Stool Character, Coffee Ground Emesis, Constipation, Cramping, Diarrhea, Dyspepsia, Dysphagia, Early Satiety, Excessive Flatus, Fecal Incontinence, Heartburn, Hematemesis, Hematochezia, Loose Stools, Melena, Nausea, Odynophagia, Temesmus, Vomiting, Other - Genitourinary Genitourinary: As Per HPI - Musculoskeletal Musculoskeletal: Muscle Cramps, Muscle Weakness, Myalgias - Neurological Neurological: Weakness Past Patient History - Infectious Disease Hx of Infectious Diseases: None - Past Medical History & Family History Past Medical History?: Yes - Past Social History Smoking Status: Light Smoker < 10 Cigarettes Daily Chewing Tobacco Use: No Cigar Use: No Alcohol: None Drugs: Denies Home Situation {Lives}: With Family - CARDIAC Hx Congestive Heart Failure: Yes Hx Hypertension: Yes Hx Peripheral Edema: Yes - PULMONARY Hx Pneumonia: Yes - NEUROLOGICAL Hx Neurological Disorder: No - HEENT Hx HEENT Problems: Yes Other/Comment: eyeglasses for reading - RENAL Date of Last Dialysis Treatment: 12/28/17 - ENDOCRINE/METABOLIC Hx Endocrine Disorders: No - HEMATOLOGICAL/ONCOLOGICAL Hx Anemia: Yes - INTEGUMENTARY Hx Dermatological Problems: No - MUSCULOSKELETAL/RHEUMATOLOGICAL Hx Falls: No - GASTROINTESTINAL Hx Gall Bladder Disease: Yes - GENITOURINARY/GYNECOLOGICAL Hx Genitourinary Disorders: No - PSYCHIATRIC Hx Substance Use: No - SURGICAL HISTORY Hx Cholecystectomy: Yes - ANESTHESIA Hx Anesthesia: Yes Hx Anesthesia Reactions: No Hx Malignant Hyperthermia: No Meds Allergies/Adverse Reactions: Allergies Allergy/AdvReac Type Severity Reaction Status Date / Time No Known Allergies Allergy Verified 12/04/17 22:03 - Medications Medications: Current Medications Alprazolam (Xanax) 0.5 mg PO BID PRN PRN Reason: Anxiety Last Admin: 12/30/17 22:45 Dose: 0.5 mg Amlodipine Besylate (Norvasc) 10 mg PO DAILY [facility] Clonidine HCl (Catapres) 0.2 mg PO BID [facility] Heparin Sodium (Porcine) (Heparin) 5,000 units SC Q12 [facility] Last Admin: 12/30/17 22:45 Dose: 5,000 units Sodium Chloride (Sodium Chloride 0.9%) 1,000 mls @ 40 mls/hr IV .Q24H [facility] Labetalol HCl (Normodyne) 300 mg PO BID [facility] Oxycodone/Acetaminophen (Percocet 5/325 Mg Tab) 1 tab PO Q6H PRN PRN Reason: Pain, moderate (4-7) Stop: 01/02/18 21:04 Last Admin: 12/31/17 02:22 Dose: 1 tab Pantoprazole Sodium (Protonix Ec Tab) 40 mg PO DAILY [facility] Physical Exam - Constitutional Appears: In Acute Distress, Chronically Ill - Head Exam Head Exam: ATRAUMATIC, NORMAL INSPECTION - Eye Exam Eye Exam: EOMI, Normal appearance - Neck Exam Neck exam: Positive for: Normal Inspection. Negative for: Tenderness - Respiratory Exam Respiratory Exam: Clear to Auscultation Bilateral, NORMAL BREATHING PATTERN - Cardiovascular Exam Cardiovascular Exam: REGULAR RHYTHM, +S1 - GI/Abdominal Exam GI & Abdominal Exam: Soft. absent: Tenderness - Extremities Exam Extremities exam: Positive for: tenderness Additional comments: left arm goretex graft exposed - Neurological Exam Neurological exam: Alert, CN II-XII Intact - Skin Skin Exam: Dry, Warm Results - Vital Signs Recent Vital Signs: Last Vital Signs Temp 98.8 F 12/31/17 08:00 Pulse 80 12/31/17 08:00 Resp 20 12/31/17 08:00 BP 158/90 H 12/31/17 08:00 Pulse Ox 100 12/31/17 08:00 - Labs Result Diagrams: 12/30/17 13:44 12/30/17 13:44 Labs: Laboratory Results - last 24 hr 12/30/17 12/30/17 12/30/17 13:44 13:44 13:44 WBC 13.5 H RBC 3.79 L Hgb 11.5 D Hct 33.1 L MCV 87.2 D MCH 30.2 MCHC 34.6 RDW 15.3 H Plt Count 259 D MPV 7.2 Neut % (Auto) 84.5 H Lymph % (Auto) 6.8 L [place] % (Auto) 7.3 Eos % (Auto) 0.9 Baso % (Auto) 0.5 Neut # (Auto) 11.4 H Lymph # (Auto) 0.9 L [place] # (Auto) 1.0 H Eos # (Auto) 0.1 Baso # (Auto) 0.1 Neutrophils % (Manual) 87 H Lymphocytes % (Manual) 6 L Monocytes % (Manual) 6 Eosinophils % (Manual) 1 Platelet Estimate Normal Anisocytosis (manual) Slight APTT 32 Sodium 140 Potassium 3.4 L Chloride 99 Carbon Dioxide 21 L Anion Gap 23 H BUN 46 H Creatinine 3.6 H Est GFR ( Amer) 17 Est GFR (Non-Af Amer) 14 Random Glucose 123 H Calcium 9.8 Total Bilirubin 0.6 AST 18 ALT 43 Alkaline Phosphatase 111 Total Protein 7.8 Albumin 4.6 Globulin 3.2 Albumin/Globulin Ratio 1.5 Blood Type Antibody Screen 12/30/17 13:44 WBC RBC Hgb Hct MCV MCH MCHC RDW Plt Count MPV Neut % (Auto) Lymph % (Auto) [place] % (Auto) Eos % (Auto) Baso % (Auto) Neut # (Auto) Lymph # (Auto) [place] # (Auto) Eos # (Auto) Baso # (Auto) Neutrophils % (Manual) Lymphocytes % (Manual) Monocytes % (Manual) Eosinophils % (Manual) Platelet Estimate Anisocytosis (manual) APTT Sodium Potassium Chloride Carbon Dioxide Anion Gap BUN Creatinine Est GFR ( Amer) Est GFR (Non-Af Amer) Random Glucose Calcium Total Bilirubin AST ALT Alkaline Phosphatase Total Protein Albumin Globulin Albumin/Globulin Ratio Blood Type A POSITIVE Antibody Screen Negative Assessment & Plan (1) Infection of AV graft for dialysis Status: Acute (2) Hypertensive chronic kidney disease with stage 5 chronic kidney disease or end stage renal disease Status: Acute (3) ESRD (end stage renal disease) Status: Chronic Priority: Medium - Assessment and Plan (Free Text) Plan: For revision graft today dialysis MWF Resume BP meds Cover with IV ABs
[2017-12-31 10:05] LABS: HCG,QUALITATIVE URINE NEGATIVE (NEGATIVE)
[2017-12-31] MEDS: Pantoprazole 40 mg EC Tab PO SCH (10:18)
[2017-12-31] MEDS: Labetalol Hydrochloride 300 mg Tab PO SCH ×2 (10:22→17:50)
[2017-12-31] MEDS ORDERED: HEPARIN-NS 5,000 UNITS/500 ML 5,000 UNIT/500 ML BAG IV ONE ×2 (11:13→14:18)
[2017-12-31] MEDS ORDERED: Iohexol 240 200 ML ONE (11:14)
[2017-12-31] MEDS ORDERED: Propofol 10 mg/ml Inj (20 ML) ONE (14:40)
[2017-12-31] MEDS ORDERED: Midazolam 2 MG/2 ML VIAL ONE (14:41)
[2017-12-31] MEDS: ceFAZolin IV 1 gm in Dextrose 1 GM/50 ML BAG IVPB ONE ×2 (14:45→14:52)
[2017-12-31] MEDS ORDERED: Lidocaine Hydrochloride 10 ML INJ ONE (14:50)
[2017-12-31] MEDS: Bupivacaine 0.25% 20 ML INJ IJ ONE ×2 (14:52→15:01)
[2017-12-31 15:04] LABS: SQUAMOUS EPITHIAL 17 /hpf (0-5); URINE BACTERIA FEW (<OCC); URINE BILIRUBIN NEGATIVE (NEGATIVE); URINE BLOOD NEGATIVE (NEGATIVE); URINE CLARITY Hazy (Clear); URINE COLOR Yellow (YELLOW); URINE GLUCOSE (UA) NORMAL (Normal); URINE LEUKOCYTE ESTERASE TRACE Leu/uL (Negative); URINE PROTEIN 2+ mg/dL (NEGATIVE); URINE UROBILINOGEN NORMAL mg/dL (0.2-1.0)
--- NOTE | 2017-12-31 16:12 | RAD ---
Date of service: 12/31/2017 PROCEDURE: Intraoperative Fluoroscopy. HISTORY: RENAL FEALURE FINDINGS: Fluoroscopic assistance was provided. Fluoroscopy time = 5.1 seconds. Radiation dose = 0.54 mGy. Please refer to the operative report from CHRISTI Wahl.
--- NOTE | 2017-12-31 16:13 | PCM.SURG1 ---
Surgeon's Initial Post Op Note - Surgeon's Notes Surgeon: Dr. Burgos Club Licensee: Dr. Tello PGY-4 Type of Anesthesia: General Endo Pre-Operative Diagnosis: Infected AV shunt Operative Findings: Permacath position confirmed via fluoro Post-Operative Diagnosis: Infected AV shunt Operation Performed: 1) Right IJ Permacath 2) Left AV shunt removal Specimen/Specimens Removed: AV hybrid graft Estimated Blood Loss: EBL {In ML}: 30 Blood Products Given: N/A Drains Used: No Drains Post-Op Condition: Good Date of Surgery/Procedure: 12/31/17 Time of Surgery/Procedure: 16:13
[2017-12-31] MEDS: HYDROmorphone 0.5 mg/0.5 ml ISec IVP PRN ×2 (16:33→16:58)
--- NOTE | 2017-12-31 16:38 | RAD ---
Date of service: 12/31/2017 HISTORY: s/p Right IJ Permacath COMPARISON: 05/26/2017 FINDINGS: LUNGS: No consolidation. PLEURA: No significant pleural effusion identified, no pneumothorax apparent. CARDIOVASCULAR: Cardiomegaly and moderate pulmonary venous congestion -increased since the prior exam. Right PermCath dialysis catheter in place tip in right atrium as before. OSSEOUS STRUCTURES: No significant abnormalities. VISUALIZED UPPER ABDOMEN: Normal. OTHER FINDINGS: None. IMPRESSION: Interval increased pulmonary venous congestion. Cardiomegaly as before. Right PermCath dialysis catheter in place tip in right atrium as before.
[2018-01-01] MEDS: Oxycodone/Acetaminophen 5/325 mg Tab PO PRN ×6 (00:08→21:46)
--- NOTE | 2018-01-01 02:13 | CARD ---
APPROVED REPORT Date of service: 12/30/2017 EKG Measurement Heart [id number] <Conclusion> Normal sinus rhythm Possible Left atrial enlargement Left ventricular hypertrophy Abnormal ECG
--- NOTE | 2018-01-01 06:37 | HP ---
Copied To: Joseph Zuleta MD Attending MD: Joseph Zuleta MD HISTORY OF PRESENT ILLNESS: Ms. Trimble chief complaint AV shunt. The patient with history of chronic renal failure, on dialysis. The patient also complained of severe hip pain. PHYSICAL EXAMINATION: GENERAL: The patient is awake, alert, and oriented. VITAL SIGNS: Temperature 98, pulse 90. HEENT: Within normal limits. NECK: Supple. CHEST: Symmetrical. HEART: Regular. ABDOMEN: Soft. EXTREMITIES: No edema. There is tenderness at the hip, , and rule out osteomyelitis, .Patient on bedrest, Surgical consult. IV antibiotics. Joseph Zuleta MD
--- NOTE | 2018-01-01 06:52 | OP ---
Copied To: Mina Burgos Jr., MD Attending MD: Mina Burgos Jr., MD PROCEDURE DATE: 12/31/2017 PREOPERATIVE DIAGNOSIS: Renal failure. PROCEDURE CARRIED OUT: 1. Placement of Perm-A-Cath, right jugular vein with C-arm fluoroscopy, ultrasound-guided puncture, and micropuncture technique. 2. Removal of exposed/infected shunt left arm. SURGEON: Mina Burgos JR., MD. INSERTING OPERATOR: Aishwarya Tello DO ANESTHESIOLOGIST: Mr. Kellogg. INDICATION: Santos is a young woman with renal insufficiency, presently right arm shunt. OPERATING FINDINGS: Initially, we place a catheter in the right jugular vein. Secondly, the exposed portion of the shunt was the arterial portion of the shunt. Because of this, we made no attempt repairing this, but instead we removed it. It was also poorly incorporated except for two or three spots. DESCRIPTION OF PROCEDURE: The patient was given general anesthesia. Intervenous antibiotics. Using ultrasound guidance and micropuncture technique, the right jugular vein was cannulated. Under fluoroscopic control, the guidewire was advanced centrally. The sheath dilator was passed over this, and the catheter was flushed with heparinized saline with good return, and the catheter was secured to position on the chest wall. After this, then we returned our attention to left wall. Initially, this appeared to be at the venous site of the shunt that was exposed. However, after detailed evaluation, this was at the arterial side. Because of this, we have ligated this, adjacent to the anastomosis. We then removed the entire shunt including the venous portion and sent. After this had all been removed we, then approximated the wound edges and partially closed them and terminated the procedure. There is a nubbin of graft left on the arterial site. So the operation carried out was Perm-A-Cath right jugular vein, removal of infected shunt left arm. New operation will have to be done for placement of permanent access in the future. Mina Burgos Jr., MD
[2018-01-01 07:26] LABS: BASO # 0.1 K/uL (0.0-0.2); BASO % 0.5 % (0.0-2.0); EOS # 0.3 K/uL (0.0-0.7); EOS % 2.9 % (0.0-4.0); LYMPH # 1.8 K/uL (1.0-4.3); LYMPH % 19.9 % (20.0-40.0); MEAN CELL VOLUME 88.6 fL (81.0-99.0); MEAN CORPUSCULAR HEMOGLOBIN 30.6 pg (27.0-31.0); MEAN CORPUSCULAR HGB CONC 34.5 g/dL (33.0-37.0); MEAN PLATELET VOLUME 7.8 fL (7.2-11.7); MONO # 0.9 K/uL (0.0-0.8); MONO % 10.1 % (0.0-10.0); NEUT # 6.2 K/uL (1.8-7.0); NEUT % 66.6 % (50.0-75.0); RBC 3.09 Mil/uL (3.80-5.20); RED CELL DISTRIBUTION WIDTH 14.8 % (11.5-14.5); WHITE BLOOD COUNT 9.3 K/uL (4.8-10.8)
[2018-01-01 07:41] LABS: HEMOGLOBIN 9.5 g/dL (11.0-16.0)
[2018-01-01 07:45] LABS: ALB/GLOB RATIO 1.6 (1.0-2.1); ALBUMIN 3.8 g/dL (3.5-5.0); CALCIUM 8.8 mg/dl (8.6-10.4)
--- NOTE | 2018-01-01 08:25 | CP.PCM.PN ---
Subjective - Date & Time of Evaluation Date of Evaluation: 01/01/18 Time of Evaluation: 07:00 - Subjective Subjective: PGY3 Resident - Medicine Progress Note Patient seen and examined at bedside. No acute distress. No overnight events. Patient is s/p revision of AV shunt on 12/[address] Burgos. She continues to c/o peristent L hip pain. Denies radiation of pain or numbness / tingling. She is tolerating her diet. 12-point review of systems is otherwise negative without any additional acute complaints. Objective - Vital Signs/Intake and Output Vital Signs (last 24 hours): Temp Pulse Resp BP Pulse Ox 98.3 F 54 L 20 124/73 98 12/31/17 23:48 12/31/17 23:48 12/31/17 23:48 12/31/17 23:48 12/31/17 23:48 Intake and Output: 01/01/18 01/01/18 06:59 18:59 Intake Total 860 Balance 860 - Medications Medications: Current Medications Alprazolam (Xanax) 0.5 mg PO BID PRN PRN Reason: Anxiety Last Admin: 12/30/17 22:45 Dose: 0.5 mg Amlodipine Besylate (Norvasc) 10 mg PO DAILY [facility] Last Admin: 12/31/17 10:22 Dose: 10 mg Clonidine HCl (Catapres) 0.2 mg PO BID [facility] Last Admin: 12/31/17 17:50 Dose: 0.2 mg Heparin Sodium (Porcine) (Heparin) 5,000 units SC Q12 [facility] Last Admin: 12/31/17 21:40 Dose: 5,000 units Sodium Chloride (Sodium Chloride 0.9%) 1,000 mls @ 40 mls/hr IV .Q24H [facility] Last Admin: 12/31/17 09:00 Dose: 40 mls/hr Vancomycin HCl 500 mg/ Sodium (Chloride) 100 mls @ 100 mls/hr IVPB MWF [facility] PRN Reason: Protocol Stop: 01/06/18 09:01 Labetalol HCl (Normodyne) 300 mg PO BID [facility] Last Admin: 12/31/17 17:50 Dose: 300 mg Ondansetron HCl (Zofran Inj) 4 mg IVP Q6 PRN PRN Reason: Nausea/Vomiting Oxycodone/Acetaminophen (Percocet 5/325 Mg Tab) 1 tab PO Q6H PRN PRN Reason: Pain, moderate (4-7) Stop: 01/02/18 21:04 Last Admin: 01/01/18 00:08 Dose: 1 tab Oxycodone/Acetaminophen (Percocet 5/325 Mg Tab) 2 tab PO Q4H PRN PRN Reason: Pain, severe (8-10) Stop: 01/03/18 13:27 Last Admin: 01/01/18 04:04 Dose: 2 tab Pantoprazole Sodium (Protonix Ec Tab) 40 mg PO DAILY [facility] Last Admin: 12/31/17 10:18 Dose: 40 mg - Labs Labs: 01/01/18 06:53 01/01/18 06:53 APTT 32 SECONDS (21-34) 12/30/17 13:44 - Additional Findings Additional findings: - Constitutional Appears: No Acute Distress - Head Exam Head Exam: ATRAUMATIC, NORMOCEPHALIC - Eye Exam Eye Exam: EOMI, Normal appearance - ENT Exam ENT Exam: Mucous Membranes Moist - Respiratory Exam Respiratory Exam: Clear to Ausculation Bilateral, NORMAL BREATHING PATTERN - Cardiovascular Exam Cardiovascular Exam: REGULAR RHYTHM, +S1, +S2 - GI/Abdominal Exam GI & Abdominal Exam: Soft. absent: Tenderness - Neurological Exam Neurological Exam: Alert, Awake, Oriented x3 - Psychiatric Exam Psychiatric exam: Normal Affect, Normal Mood - Skin Additional comments: AV shunt revision, bandages CDI - Additional Findings Additional findings: +left hip tender to palpation Assessment and Plan - Assessment and Plan (Free Text) Assessment: Malfunctioning AV shunt 01/01: s/p AV shung revision with Dr. Burgos 12/31. Dressings CDI. Consult placed to Dr. Burgos- recs appreciated Will go to OR with Dr. Burgos for revision Given Vanc 1g x1 on 12/31/17 ESRD Consult placed to Dr. Jordan; Recs appreciated HD M-W-F L hip pain 01/01: MRI L hip- SI joint edema at inferior L sacrum and adjacent to L iliac bone. Possible sacroiliitis. 3cm uterine Fibroid with multiloculated cyst in b/l adnexa up to 5cm on the left / 5.5cm on the right. see full report. Consult Dr. Pavon, f/u recs Concern for OM Percocet 1-2T PO q4hrs prn pain Afebrile Mildly elevated WBC Bacteremia 01/01: blood culture positive for staph coag negative Consult ID, Dr. Sosa, f/u recs. HTN Norvasc 10mg PO QD Catapres 0.2mg PO BID Labetalol 300mg PO BID Recently elevated- likely due to hip pain/anxiety Anxiety Xanax 0.5mg PO BID PPX Protonix 40mg PO daily Heparin 5000u SC q12hrs Case discussed with attending. All medical management as per Dr. Avinash Zuleta.
[2018-01-01] MEDS: Sodium Chloride 0.9% 1,000 ML IV SCH (08:44)
[2018-01-01] MEDS: Pantoprazole 40 mg EC Tab PO SCH (10:26)
[2018-01-01] MEDS: Labetalol Hydrochloride 300 mg Tab PO SCH ×2 (10:27→17:58)
--- NOTE | 2018-01-01 11:04 | CP.PCM.PN ---
Subjective - Date & Time of Evaluation Date of Evaluation: 01/01/18 Time of Evaluation: 07:00 - Subjective Subjective: VASCULAR SURGERY PROGRESS NOTE FOR DR. ODELL Patient seen and examined at bedside. She is doing well post op, only has mild pain in the arm. Arm remains wrapped in julita wrap. Objective - Vital Signs/Intake and Output Vital Signs (last 24 hours): Temp Pulse Resp BP Pulse Ox 98.3 F 54 L 20 124/73 98 12/31/17 23:48 12/31/17 23:48 12/31/17 23:48 12/31/17 23:48 12/31/17 23:48 Intake and Output: 01/01/18 01/01/18 06:59 18:59 Intake Total 860 Balance 860 - Medications Medications: Current Medications Alprazolam (Xanax) 0.5 mg PO BID PRN PRN Reason: Anxiety Last Admin: 12/30/17 22:45 Dose: 0.5 mg Amlodipine Besylate (Norvasc) 10 mg PO DAILY [facility] Last Admin: 01/01/18 10:26 Dose: 10 mg Clonidine HCl (Catapres) 0.2 mg PO BID [facility] Last Admin: 01/01/18 10:27 Dose: 0.2 mg Heparin Sodium (Porcine) (Heparin) 5,000 units SC Q12 [facility] Last Admin: 01/01/18 10:27 Dose: 5,000 units Sodium Chloride (Sodium Chloride 0.9%) 1,000 mls @ 40 mls/hr IV .Q24H [facility] Last Admin: 01/01/18 08:44 Dose: 40 mls/hr Vancomycin HCl 500 mg/ Sodium (Chloride) 100 mls @ 100 mls/hr IVPB MWF [facility] PRN Reason: Protocol Stop: 01/06/18 09:01 Last Admin: 01/01/18 08:43 Dose: 100 mls/hr Labetalol HCl (Normodyne) 300 mg PO BID [facility] Last Admin: 01/01/18 10:27 Dose: 300 mg Ondansetron HCl (Zofran Inj) 4 mg IVP Q6 PRN PRN Reason: Nausea/Vomiting Oxycodone/Acetaminophen (Percocet 5/325 Mg Tab) 1 tab PO Q6H PRN PRN Reason: Pain, moderate (4-7) Stop: 01/02/18 21:04 Last Admin: 01/01/18 00:08 Dose: 1 tab Oxycodone/Acetaminophen (Percocet 5/325 Mg Tab) 2 tab PO Q4H PRN PRN Reason: Pain, severe (8-10) Stop: 01/03/18 13:27 Last Admin: 01/01/18 09:01 Dose: 2 tab Pantoprazole Sodium (Protonix Ec Tab) 40 mg PO DAILY [facility] Last Admin: 01/01/18 10:26 Dose: 40 mg - Labs Labs: 01/01/18 06:53 01/01/18 06:53 APTT 32 SECONDS (21-34) 12/30/17 13:44 - Constitutional Appears: Non-toxic, No Acute Distress - Head Exam Head Exam: ATRAUMATIC, NORMAL INSPECTION - Respiratory Exam Respiratory Exam: NORMAL BREATHING PATTERN. absent: Respiratory Distress - Cardiovascular Exam Cardiovascular Exam: +S1, +S2 - Extremities Exam Additional comments: Left arm wrapped in julita wrap Palpable radial pulse - Neurological Exam Neurological Exam: Alert, Awake, Oriented x3 - Psychiatric Exam Psychiatric exam: Normal Affect, Normal Mood - Skin Skin Exam: Normal Color, Warm Assessment and Plan - Assessment and Plan (Free Text) Assessment: 37yo F with ESRD on dialysis s/p right permacath, removal of AV shunt POD#1 - Blood cx = Staph - Post op CXR = Permacath in place, no pneumo - Continue dialysis as scheduled via Permacath - Will need new AV graft once bactermia resolves - Discussed plan with Dr. Loretta Tello PGY-4
--- NOTE | 2018-01-01 12:30 | MRI ---
MRI left hip History: Hip pain. Evaluate for infection. Comparison: None available. Technique: Multi-echo multiplanar sequences were performed through the left hip without the use of intravenous contrast. Findings: Heterogeneity of the visualized marrow with patchy decreased T1 signal suggestive for hematopoietic marrow reconversion. Left hip: Mild narrowing of the left hip joint space with mild cartilage thinning. Mild degenerative fraying with some increased signal noted at the undersurface of the left anterior acetabular labrum suggestive for some degenerative fraying and/or mild degenerative partial tearing. No significant left hip joint effusion. Left iliopsoas and hamstring tendon origins appear preserved. Left rectus femoris tendon attachment appears preserved. Mild insertional tendinopathy of the left gluteus tendon attachments on greater trochanter. Limited evaluation of the remainder of the bony pelvis demonstrates reactive edema with increased STIR signal noted at the inferior aspect of the left SI joint with reactive edema also noted in the inferior left sacrum and adjacent left iliac bone. These findings are nonspecific and may be the sequelae of acute inflammatory and or infectious changes such as a sacroiliitis. Clinical correlation. This is best seen on series 4, image 9. Mild degenerative changes of the right hip joint space with joint space narrowing and cartilage thinning. Mild insertional tendinopathy of the right gluteus tendon attachments on the greater trochanter. Prominent 3 centimeter fibroid lesion the uterus. Large multiloculated cystic lesions within the bilateral adnexa measuring up to 5 centimeters on the right and up to 5.5 centimeters on left. Clinical correlation. Correlation with pelvic ultrasound may be helpful clinically indicated. Impression: 1. Mild narrowing of the left hip joint space with mild cartilage thinning. 2. Mild degenerative fraying with some increased signal noted at the undersurface of the left anterior acetabular labrum suggestive for some degenerative fraying and/or mild degenerative partial tearing. 3. Mild insertional tendinopathy of the left gluteus tendon attachments on greater trochanter. 4. Reactive edema with increased STIR signal noted at the inferior aspect of the left SI joint with reactive edema also noted in the inferior left sacrum and adjacent left iliac bone. These findings are nonspecific and may be the sequelae of acute inflammatory and or infectious changes such as a sacroiliitis. Clinical correlation. This is best seen on series 4, image 9. 5. Mild degenerative changes of the right hip joint space with joint space narrowing and cartilage thinning. 6. Mild insertional tendinopathy of the right gluteus tendon attachments on the greater trochanter. 7. Prominent 3 centimeter fibroid lesion the uterus. Large multiloculated cystic lesions within the bilateral adnexa measuring up to 5 centimeters on the right and up to 5.5 centimeters on left. Clinical correlation. Correlation with pelvic ultrasound may be helpful clinically indicated. 8. Heterogeneity of the visualized marrow with patchy decreased T1 signal suggestive for hematopoietic marrow reconversion.
--- NOTE | 2018-01-01 13:40 | CP.PCM.PN ---
Subjective - Date & Time of Evaluation Date of Evaluation: 01/01/18 Time of Evaluation: 13:37 - Subjective Subjective: s/p ligation AV graft New permcath inserted BP controlled Hg lower today phos elevated no n, v, dyspneic, CPs, fevers, chills Objective - Vital Signs/Intake and Output Vital Signs (last 24 hours): Temp Pulse Resp BP Pulse Ox 98.3 F 54 L 20 124/73 98 12/31/17 23:48 12/31/17 23:48 12/31/17 23:48 12/31/17 23:48 12/31/17 23:48 Intake and Output: 01/01/18 01/01/18 06:59 18:59 Intake Total 860 Balance 860 - Medications Medications: Current Medications Alprazolam (Xanax) 0.5 mg PO BID PRN PRN Reason: Anxiety Last Admin: 12/30/17 22:45 Dose: 0.5 mg Amlodipine Besylate (Norvasc) 10 mg PO DAILY [facility] Last Admin: 01/01/18 10:26 Dose: 10 mg Clonidine HCl (Catapres) 0.2 mg PO BID [facility] Last Admin: 01/01/18 10:27 Dose: 0.2 mg Epoetin Glenn (Procrit) 10,000 unit IV [facility] [place] Heparin Sodium (Porcine) (Heparin) 5,000 units SC Q12 [facility] Last Admin: 01/01/18 10:27 Dose: 5,000 units Vancomycin HCl 500 mg/ Sodium (Chloride) 100 mls @ 100 mls/hr [facility] PR[facility] Reason: Protocol Stop: 01/06/18 09:01 Last Admin: 01/01/18 08:43 Dose: 100 mls/hr Labetalol HCl (Normodyne) 300 mg PO BID [facility] Last Admin: 01/01/18 10:27 Dose: 300 mg Ondansetron HCl (Zofran Inj) 4 mg IVP Q6 PRN PRN Reason: Nausea/Vomiting Oxycodone/Acetaminophen (Percocet 5/325 Mg Tab) 1 tab PO Q6H PRN PRN Reason: Pain, moderate (4-7) Stop: 01/02/18 21:04 Last Admin: 01/01/18 00:08 Dose: 1 tab Oxycodone/Acetaminophen (Percocet 5/325 Mg Tab) 2 tab PO Q4H PRN PRN Reason: Pain, severe (8-10) Stop: 01/03/18 13:27 Last Admin: 01/01/18 13:07 Dose: 2 tab Pantoprazole Sodium (Protonix Ec Tab) 40 mg PO DAILY [facility] Last Admin: 01/01/18 10:26 Dose: 40 mg - Labs Labs: 01/01/18 06:53 01/01/18 06:53 APTT 32 SECONDS (21-34) 12/30/17 13:44 - Constitutional Appears: No Acute Distress, Chronically Ill - Head Exam Head Exam: ATRAUMATIC, NORMAL INSPECTION - Eye Exam Eye Exam: EOMI, Normal appearance - Neck Exam Neck Exam: Normal Inspection. absent: Tenderness - Respiratory Exam Respiratory Exam: Clear to Ausculation Bilateral, NORMAL BREATHING PATTERN - Cardiovascular Exam Cardiovascular Exam: REGULAR RHYTHM, +S1 - GI/Abdominal Exam GI & Abdominal Exam: Soft. absent: Tenderness - Extremities Exam Extremities Exam: Normal Inspection. absent: Tenderness - Neurological Exam Neurological Exam: Awake, CN II-XII Intact - Skin Skin Exam: Dry, Warm Assessment and Plan (1) Infection of AV graft for dialysis Status: Acute (2) Hypertensive chronic kidney disease with stage 5 chronic kidney disease or end stage renal disease Status: Acute (3) ESRD (end stage renal disease) Status: Chronic - Assessment and Plan (Free Text) Plan: dialysis now and MWF stop IV fluids use permcath IV ABs for staph epi bacteremia Eventual new AV access when bacteremia clears
[2018-01-01] MEDS ORDERED: Gentamicin 160 MG in Sodium Chloride 0.9% 100 ML IVPB ONE (18:00)
--- NOTE | 2018-01-01 20:24 | CP.PCM.CON ---
History of Present Illness - History of Present Illness History of Present Illness: 37F w. hx of brachiobrachial hybrid AVF presents to ED with exposed goretex graft. Pt states that she has noticed a cyst on the inner part of her L arm over the AVF for the past month. She states that occasionally the cyst would drain pus. She states that she would try to keep it as clean as possible. On she states that she noticed that goretex graft coming through the skin, prompting her to come to ED. 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, infected graft left arm PMH: CHF, ID, ESRD- dialysis x 1 year,HTN, nephrosclerosis, depression, anxiety PSH: AVF, permcath, choleycystectomy, PD cath insertion and removal Meds: ADITHYA reviewed NKDA Social: + Tobacco, no ETOH/drugs Fhx: mother was on dialysis for ESRD Review of Systems - Constitutional Constitutional: Headache, Weakness - EENT Eyes: absent: As Per HPI, Blind Spots, Blurred Vision, Change in Vision, Decreased Night Vision, Diplopia, Discharge, Dry Eye, Exophthalmos, Floaters, Irritation, Itchy Eyes, Loss of Peripheral Vision, Pain, Photophobia, Requires Corrective Lenses, Sees Flashes, Spots in Vision, Tunnel Vision, Other Visual Disturbances, Loss of Vision, Other Ears: absent: As Per HPI, Decreased Hearing, Ear Discharge, Ear Pain, Tinnitus, Abnormal Hearing, Disequilibrium, Dizziness, Other Nose/Mouth/Throat: absent: As Per HPI, Epistaxis, Nasal Congestion, Nasal Discharge, Nasal Obstruction, Nasal Trauma, Nose Pain, Post Nasal Drip, Sinus Pain, Sinus Pressure, Bleeding Gums, Change in Voice, Dental Pain, Dry Mouth, Dysphagia, Halitosis, Hoarsness, Lip Swelling, Mouth Lesions, Mouth Pain, Odynophagia, Sore Throat, Throat Swelling, Tongue Swelling, Facial Pain, Neck Pain, Neck Mass, Other - Cardiovascular Cardiovascular: Dyspnea on Exertion, Lightheadedness - Respiratory Respiratory: absent: As Per HPI, Cough, Dyspnea, Hemoptysis, Dyspnea on Exertion , Wheezing, Snoring, Stridor, Pain on Inspiration, Chest Congestion, Excessive Mucous Production, Change in Mucous Color, Pain with Coughing, Other - Gastrointestinal Gastrointestinal: absent: As Per HPI, Abdominal Pain, Belching, Bloating, Change in Bowel Habits, Change in Stool Character, Coffee Ground Emesis, Constipation, Cramping, Diarrhea, Dyspepsia, Dysphagia, Early Satiety, Excessive Flatus, Fecal Incontinence, Heartburn, Hematemesis, Hematochezia, Loose Stools, Melena, Nausea, Odynophagia, Temesmus, Vomiting, Other - Genitourinary Genitourinary: As Per HPI - Musculoskeletal Musculoskeletal: Muscle Cramps, Muscle Weakness, Myalgias - Neurological Neurological: Weakness Past Patient History - Infectious Disease Hx of Infectious Diseases: None - Past Medical History & Family History Past Medical History?: Yes - Past Social History Smoking Status: Light Smoker < 10 Cigarettes Daily Chewing Tobacco Use: No Cigar Use: No Alcohol: None Drugs: Denies Home Situation {Lives}: With Family - CARDIAC Hx Congestive Heart Failure: Yes Hx Hypertension: Yes Hx Peripheral Edema: Yes - PULMONARY Hx Pneumonia: Yes - NEUROLOGICAL Hx Neurological Disorder: No - HEENT Hx HEENT Problems: Yes Other/Comment: eyeglasses for reading - RENAL Date of Last Dialysis Treatment: 12/28/17 - ENDOCRINE/METABOLIC Hx Endocrine Disorders: No - HEMATOLOGICAL/ONCOLOGICAL Hx Anemia: Yes - INTEGUMENTARY Hx Dermatological Problems: No - MUSCULOSKELETAL/RHEUMATOLOGICAL Hx Falls: No - GASTROINTESTINAL Hx Gall Bladder Disease: Yes - GENITOURINARY/GYNECOLOGICAL Hx Genitourinary Disorders: No - PSYCHIATRIC Hx Substance Use: No - SURGICAL HISTORY Hx Cholecystectomy: Yes - ANESTHESIA Hx Anesthesia: Yes Hx Anesthesia Reactions: No Hx Malignant Hyperthermia: No Meds Allergies/Adverse Reactions: Allergies Allergy/AdvReac Type Severity Reaction Status Date / Time No Known Allergies Allergy Verified 12/04/17 22:03 - Medications Medications: Current Medications Alprazolam (Xanax) 0.5 mg PO BID PRN PRN Reason: Anxiety Last Admin: 12/30/17 22:45 Dose: 0.5 mg Amlodipine Besylate (Norvasc) 10 mg PO DAILY [facility] Last Admin: 01/01/18 10:26 Dose: 10 mg Calcium Acetate (Phoslo) 667 mg PO TID [facility] Last Admin: 01/01/18 18:01 Dose: 667 mg Clonidine HCl (Catapres) 0.2 mg PO BID [facility] Last Admin: 01/01/18 17:58 Dose: 0.2 mg Epoetin Glenn (Procrit) 10,000 unit IV [facility] [place] Heparin Sodium (Porcine) (Heparin) 5,000 units SC Q12 [facility] Last Admin: 01/01/18 10:27 Dose: 5,000 units Vancomycin HCl 500 mg/ Sodium (Chloride) 100 mls @ 100 mls/hr IVPB MWF [facility] PRN Reason: Protocol Stop: 01/06/18 09:01 Last Admin: 01/01/18 08:43 Dose: 100 mls/hr Labetalol HCl (Normodyne) 300 mg PO BID [facility] Last Admin: 01/01/18 17:58 Dose: 300 mg Ondansetron HCl (Zofran Inj) 4 mg IVP Q6 PRN PRN Reason: Nausea/Vomiting Oxycodone/Acetaminophen (Percocet 5/325 Mg Tab) 1 tab PO Q6H PRN PRN Reason: Pain, moderate (4-7) Stop: 01/02/18 21:04 Last Admin: 01/01/18 00:08 Dose: 1 tab Oxycodone/Acetaminophen (Percocet 5/325 Mg Tab) 2 tab PO Q4H PRN PRN Reason: Pain, severe (8-10) Stop: 01/03/18 13:27 Last Admin: 01/01/18 17:56 Dose: 2 tab Pantoprazole Sodium (Protonix Ec Tab) 40 mg PO DAILY [facility] Last Admin: 01/01/18 10:26 Dose: 40 mg Physical Exam - Constitutional Appears: No Acute Distress, Chronically Ill - Head Exam Head Exam: ATRAUMATIC - Eye Exam Eye Exam: absent: Scleral icterus - ENT Exam ENT Exam: Mucous Membranes Dry - Neck Exam Neck exam: Negative for: Lymphadenopathy - Respiratory Exam Respiratory Exam: Decreased Breath Sounds, Rhonchi - Cardiovascular Exam Cardiovascular Exam: REGULAR RHYTHM, +S1, +S2 - GI/Abdominal Exam GI & Abdominal Exam: Diminished Bowel Sounds, Soft. absent: Tenderness - Rectal Exam Rectal Exam: Deferred - Exam Exam: NORMAL INSPECTION - Extremities Exam Extremities exam: Negative for: pedal edema - Back Exam Back exam: muscle spasm, paraspinal tenderness, tenderness, vertebral tenderness. absent: CVA tenderness (L), CVA tenderness (R) Additional comments: decreased rom ;left leg - Neurological Exam Neurological exam: Alert, CN II-XII Intact, Oriented x3, Reflexes Normal - Psychiatric Exam Psychiatric exam: Depressed - Skin Skin Exam: Dry, Intact Results - Vital Signs Recent Vital Signs: Last Vital Signs Temp 97.8 F 01/01/18 17:25 Pulse 61 01/01/18 17:25 Resp 19 01/01/18 17:25 BP 124/77 01/01/18 17:25 Pulse Ox 97 01/01/18 17:25 - Labs Result Diagrams: 01/01/18 06:53 01/01/18 06:53 Labs: Laboratory Results - last 24 hr 01/01/18 01/01/18 06:53 06:53 WBC 9.3 RBC 3.09 L Hgb 9.5 L D Hct 27.4 L MCV 88.6 MCH 30.6 MCHC 34.5 RDW 14.8 H Plt Count 263 MPV 7.8 Neut % (Auto) 66.6 Lymph % (Auto) 19.9 L [place] % (Auto) 10.1 H Eos % (Auto) 2.9 Baso % (Auto) 0.5 Neut # (Auto) 6.2 Lymph # (Auto) 1.8 [place] # (Auto) 0.9 H Eos # (Auto) 0.3 Baso # (Auto) 0.1 Sodium 135 Potassium 3.7 Chloride 96 L Carbon Dioxide 26 Anion Gap 17 BUN 39 H Creatinine 3.8 H Est GFR ( Amer) 16 Est GFR (Non-Af Amer) 13 Random Glucose 90 Calcium 8.8 Phosphorus 6.0 H Magnesium 2.2 Total Bilirubin 0.3 AST 20 ALT 28 Alkaline Phosphatase 82 Total Protein 6.3 Albumin 3.8 Globulin 2.4 Albumin/Globulin Ratio 1.6 Assessment & Plan (1) Sacroiliac inflammation Status: Acute (2) Hypertensive chronic kidney disease with stage 5 chronic kidney disease or end stage renal disease Status: Acute (3) Infection of AV graft for dialysis Status: Acute (4) Problem with dialysis shunt Status: Acute - Assessment and Plan (Free Text) Assessment: r/o OM sacroileitis sepsis bactteremia r/o endocarditis consider ASHANTI IV rx for 8 weeks
[2018-01-02] MEDS: Oxycodone/Acetaminophen 5/325 mg Tab PO PRN ×6 (02:45→20:08)
--- NOTE | 2018-01-02 08:00 | CP.PCM.PN ---
Subjective - Date & Time of Evaluation Date of Evaluation: 01/02/18 Time of Evaluation: 07:58 - Subjective Subjective: crying about pain upset that did not get her xanax and 2 percocet no SOB had HD yesterday ROS- as per HPI, other than that 10 point ROS negative Objective - Vital Signs/Intake and Output Vital Signs (last 24 hours): Temp Pulse Resp BP Pulse Ox 99 F 62 20 150/86 94 L 01/02/18 00:00 01/02/18 00:00 01/02/18 00:00 01/02/18 00:00 01/02/18 00:00 Intake and Output: 01/02/18 01/02/18 06:59 18:59 Intake Total 450 Balance 450 - Medications Medications: Current Medications Alprazolam (Xanax) 0.5 mg PO BID PRN PRN Reason: Anxiety Last Admin: 12/30/17 22:45 Dose: 0.5 mg Amlodipine Besylate (Norvasc) 10 mg PO DAILY [facility] Last Admin: 01/01/18 10:26 Dose: 10 mg Calcium Acetate (Phoslo) 667 mg PO TID [facility] Last Admin: 01/01/18 18:01 Dose: 667 mg Clonidine HCl (Catapres) 0.2 mg PO BID [facility] Last Admin: 01/01/18 17:58 Dose: 0.2 mg Epoetin Glenn (Procrit) 10,000 unit IV [facility] [place] Heparin Sodium (Porcine) (Heparin) 5,000 units SC Q12 [facility] Last Admin: 01/01/18 21:50 Dose: 5,000 units Vancomycin HCl 1 gm/ Sodium (Chloride) 200 mls @ 133.333 mls/hr IVPB [facility] [place] PRN Reason: Protocol Gentamicin Sulfate/Sodium Chloride (Gentamicin 60mg/50ml Ns) 60 mg in 50 mls @ 100 mls/hr IVPB [facility] [place] PRN Reason: Protocol Labetalol HCl (Normodyne) 300 mg PO BID [facility] Last Admin: 01/01/18 17:58 Dose: 300 mg Ondansetron HCl (Zofran Inj) 4 mg IVP Q6 PRN PRN Reason: Nausea/Vomiting Oxycodone/Acetaminophen (Percocet 5/325 Mg Tab) 1 tab PO Q6H PRN PRN Reason: Pain, moderate (4-7) Stop: 01/02/18 21:04 Last Admin: 01/01/18 21:46 Dose: 1 tab Oxycodone/Acetaminophen (Percocet 5/325 Mg Tab) 2 tab PO Q4H PRN PRN Reason: Pain, severe (8-10) Stop: 01/03/18 13:27 Last Admin: 01/02/18 07:48 Dose: 2 tab Pantoprazole Sodium (Protonix Ec Tab) 40 mg PO DAILY [facility] Last Admin: 01/01/18 10:26 Dose: 40 mg - Labs Labs: 01/01/18 06:53 01/01/18 06:53 APTT 32 SECONDS (21-34) 12/30/17 13:44 - Constitutional Appears: Non-toxic, No Acute Distress - Head Exam Head Exam: ATRAUMATIC, NORMOCEPHALIC - Eye Exam Eye Exam: PERRL - ENT Exam ENT Exam: Mucous Membranes Moist - Neck Exam Neck Exam: Full ROM - Respiratory Exam Respiratory Exam: Clear to Ausculation Bilateral. absent: Rhonchi, Wheezes - Cardiovascular Exam Cardiovascular Exam: REGULAR RHYTHM, +S1, +S2 - GI/Abdominal Exam GI & Abdominal Exam: Soft. absent: Distended, Tenderness - Extremities Exam Extremities Exam: Full ROM. absent: Pedal Edema - Neurological Exam Neurological Exam: Alert, Awake, Oriented x3 - Psychiatric Exam Psychiatric exam: Normal Affect, Normal Mood - Skin Skin Exam: Intact, Warm Assessment and Plan (1) Hypertensive chronic kidney disease with stage 5 chronic kidney disease or end stage renal disease Status: Acute (2) Infection of AV graft for dialysis Status: Acute (3) Problem with dialysis shunt Status: Acute (4) ESRD (end stage renal disease) Status: Acute (5) Hypertension Status: Acute - Assessment and Plan (Free Text) Plan: maintain HD MWF next hd thursday BP reasonable watch HB pain management
[2018-01-02 08:39] LABS: BASO # 0.1 K/uL (0.0-0.2); BASO % 0.7 % (0.0-2.0); EOS # 0.3 K/uL (0.0-0.7); EOS % 4.3 % (0.0-4.0); HEMOGLOBIN 10.7 g/dL (11.0-16.0); LYMPH # 1.4 K/uL (1.0-4.3); LYMPH % 18.4 % (20.0-40.0); MEAN CORPUSCULAR HEMOGLOBIN 30.2 pg (27.0-31.0); MEAN CORPUSCULAR HGB CONC 34.3 g/dL (33.0-37.0); MEAN PLATELET VOLUME 7.7 fL (7.2-11.7); MONO # 0.5 K/uL (0.0-0.8); MONO % 6.7 % (0.0-10.0); NEUT # 5.3 K/uL (1.8-7.0); NEUT % 69.9 % (50.0-75.0); NRBC % 0.1 % (0.0-2.0); RBC 3.54 Mil/uL (3.80-5.20); RED CELL DISTRIBUTION WIDTH 14.8 % (11.5-14.5); WHITE BLOOD COUNT 7.6 K/uL (4.8-10.8)
[2018-01-02 09:08] LABS: ALB/GLOB RATIO 1.6 (1.0-2.1); ALBUMIN 4.3 g/dL (3.5-5.0); CALCIUM 9.3 mg/dl (8.6-10.4)
[2018-01-02 09:29] LABS: HEPATITIS B SURFACE AG Negative (NEGATIVE)
[2018-01-02 09:35] LABS: HEPATITIS A IGM NEGATIVE (NEGATIVE); HEPATITIS B CORE AB NEGATIVE (NEGATIVE)
[2018-01-02] MEDS: Labetalol Hydrochloride 300 mg Tab PO SCH ×2 (09:38→17:32)
[2018-01-02] MEDS: Pantoprazole 40 mg EC Tab PO SCH (09:38)
[2018-01-02 09:47] LABS: HEPATITIS C ANTIBODY NEGATIVE (NEGATIVE)
--- NOTE | 2018-01-02 11:30 | CP.PCM.PN ---
Subjective - Date & Time of Evaluation Date of Evaluation: 01/02/18 Time of Evaluation: 07:30 - Subjective Subjective: Vascular Surgery progress note for Dr. Burgos Pt seen and examined this AM with Dr. Burgos. No acute events overnight. Patient states her pain is currently well controlled, denies any numbness, tingling, or weakness of the upper extremities Objective - Vital Signs/Intake and Output Vital Signs (last 24 hours): Temp Pulse Resp BP Pulse Ox 98.3 F 60 20 139/88 95 01/02/18 08:00 01/02/18 08:00 01/02/18 08:00 01/02/18 08:00 01/02/18 08:00 Intake and Output: 01/02/18 01/02/18 06:59 18:59 Intake Total 450 120 Balance 450 120 - Medications Medications: Current Medications Alprazolam (Xanax) 0.5 mg PO BID PRN PRN Reason: Anxiety Last Admin: 01/02/18 08:20 Dose: 0.5 mg Amlodipine Besylate (Norvasc) 10 mg PO DAILY [facility] Last Admin: 01/02/18 09:38 Dose: 10 mg Calcium Acetate (Phoslo) 667 mg PO TID [facility] Last Admin: 01/02/18 09:38 Dose: 667 mg Clonidine HCl (Catapres) 0.2 mg PO BID [facility] Last Admin: 01/02/18 09:38 Dose: 0.2 mg Epoetin Glenn (Procrit) 10,000 [place] [facility] [place]arin Sodium (Porcine) (Heparin) 5,000 units SC Q12 [facility] Last Admin: 01/02/18 09:38 Dose: 5,000 units Vancomycin HCl 1 gm/ Sodium (Chloride) 200 mls @ 133.333 mls/hr [place] [facility] [place] Reason: Protocol Gentamicin Sulfate/Sodium Chloride (Gentamicin 60mg/50ml Ns) 60 mg in 50 mls @ 100 mls/hr [place] [facility] [place] Reason: Protocol Labetalol HCl (Normodyne) 300 mg PO BID [facility] Last Admin: 01/02/18 09:38 Dose: 300 mg Ondansetron HCl (Zofran Inj) 4 mg IVP Q6 PRN PRN Reason: Nausea/Vomiting Oxycodone/Acetaminophen (Percocet 5/325 Mg Tab) 1 tab PO Q6H PRN PRN Reason: Pain, moderate (4-7) Stop: 01/02/18 21:04 Last Admin: 01/01/18 21:46 Dose: 1 tab Oxycodone/Acetaminophen (Percocet 5/325 Mg Tab) 2 tab PO Q4H PRN PRN Reason: Pain, severe (8-10) Stop: 01/03/18 13:27 Last Admin: 01/02/18 07:48 Dose: 2 tab Pantoprazole Sodium (Protonix Ec Tab) 40 mg PO DAILY [facility] Last Admin: 01/02/18 09:38 Dose: 40 mg - Labs Labs: 01/02/18 08:11 01/02/18 08:23 APTT 32 SECONDS (21-34) 12/30/17 13:44 - Constitutional Appears: Well, Non-toxic, No Acute Distress - Head Exam Head Exam: ATRAUMATIC, NORMOCEPHALIC - Eye Exam Eye Exam: Normal appearance. absent: Conjunctival injection, Scleral icterus - ENT Exam ENT Exam: Mucous Membranes Moist, Normal Oropharynx - Respiratory Exam Respiratory Exam: NORMAL BREATHING PATTERN. absent: Accessory Muscle Use, Respiratory Distress - Cardiovascular Exam Cardiovascular Exam: RRR - GI/Abdominal Exam GI & Abdominal Exam: Soft. absent: Distended, Tenderness - Extremities Exam Additional comments: right permacath in place in the chest left UE dressing intact with no saturation, no weakness of the hand, wrist pulses intact - Neurological Exam Neurological Exam: Alert, Awake, Oriented x3 - Psychiatric Exam Psychiatric exam: Normal Affect, Normal Mood - Skin Skin Exam: Dry, Normal Color, Warm Assessment and Plan - Assessment and Plan (Free Text) Assessment: 37F POD#2 s/p removal of L AV shunt and insertion of permacath Plan: Continue to trend CBC Continue antibiotics per ID Once patient's bacteremia is cleared, will consider surgery for new vascular HD access Continue to use the permacath for dialysis Discussed with Dr. Loretta Key PGY2
--- NOTE | 2018-01-02 14:23 | CARD ---
APPROVED REPORT Date of service: 01/02/2018 EXAM: Two-dimensional and M-mode echocardiogram with Doppler and color Doppler. Other Information Quality : GoodRhythm : INDICATION Infection:Rule out subacute bacterial endocarditis AV Shunt problem RISK FACTORS Hypertension 2D DIMENSIONS IVSd1.3 (0.7-1.1cm)LVDd4.9 (3.9-5.9cm) PWd1.4 (0.7-1.1cm)LVDs3.4 (2.5-4.0cm) FS (%) 30.3 %LVEF (%)57.5 (>50%) M-Mode DIMENSIONS Left Atrium (MM)4.19 (2.5-4.0cm)IVSd1.46 (0.7-1.1cm) Aortic Root3.49 (2.2-3.7cm)LVDd5.59 (4.0-5.6cm) Aortic Cusp Exc.2.28 (1.5-2.0cm)PWd1.32 (0.7-1.1cm) FS (%) 31 %LVDs3.85 (2.0-3.8cm) LVEF (%)58 (>50%) Aortic Valve AI P 1/2 [id number] Mitral Valve MV E [id number]/sMV A Zujqdsuh50.2cm/sE/A ratio1.5 PISA0.65 cm TDI E/Lateral E'0.0E/Medial E'0.0 Tricuspid Valve TR Peak [id number]/sTR Peak [id number] LEFT VENTRICLE The left ventricle is normal size. There is normal left ventricular wall thickness. The left ventricular function is normal. The left ventricular ejection fraction is within the normal range. There is normal LV segmental wall motion. Transmitral Doppler flow pattern is Grade I-abnormal relaxation pattern. RIGHT VENTRICLE The right ventricle is normal size. There is normal right ventricular wall thickness. The right ventricular systolic function is normal. ATRIA The left atrium size is normal. The right atrium size is normal. AORTIC VALVE The aortic valve is mildly thickened. There is mild aortic regurgitation. There is no aortic valvular stenosis. MITRAL VALVE The mitral valve is moderately thickened. There is no mitral valve stenosis. Mitral regurgitation is moderate. TRICUSPID VALVE The tricuspid valve is normal in structure. There is mild to moderate tricuspid regurgitation. There is mild to moderate pulmonary hypertension. PULMONIC VALVE The pulmonary valve is normal in structure. GREAT VESSELS The aortic root is normal in size. The IVC is normal in size and collapses >50% with inspiration. <Conclusion> The left ventricle is normal size. There is normal left ventricular wall thickness. The left ventricular function is normal. The left ventricular ejection fraction is within the normal range. There is normal LV segmental wall motion. Transmitral Doppler flow pattern is Grade I-abnormal relaxation pattern. There is mild aortic regurgitation. The mitral valve is moderately thickened. Mitral regurgitation is moderate. There is mild to moderate tricuspid regurgitation. There is mild to moderate pulmonary hypertension. No vegitation seen
--- NOTE | 2018-01-02 14:41 | CP.PCM.CON ---
History of Present Illness - History of Present Illness History of Present Illness: ID 37 yo female CC- pain in L buttock and down L lower ext NOT IN l HIP PROPER hPI- 37 YO FEMALE PRESENT=S WITH 1 WK HX OF lLeft sciatica No eveidence for L hip join tpain, proper, no increased pain on ROM L hip when distracted Past Patient History - Infectious Disease Hx of Infectious Diseases: None - Past Medical History & Family History Past Medical History?: Yes - Past Social History Smoking Status: Light Smoker < 10 Cigarettes Daily Chewing Tobacco Use: No Cigar Use: No Alcohol: None Drugs: Denies Home Situation {Lives}: With Family - CARDIAC Hx Congestive Heart Failure: Yes Hx Hypertension: Yes Hx Peripheral Edema: Yes - PULMONARY Hx Pneumonia: Yes - NEUROLOGICAL Hx Neurological Disorder: No - HEENT Hx HEENT Problems: Yes Other/Comment: eyeglasses for reading - RENAL Date of Last Dialysis Treatment: 12/28/17 - ENDOCRINE/METABOLIC Hx Endocrine Disorders: No - HEMATOLOGICAL/ONCOLOGICAL Hx Anemia: Yes - INTEGUMENTARY Hx Dermatological Problems: No - MUSCULOSKELETAL/RHEUMATOLOGICAL Hx Falls: No - GASTROINTESTINAL Hx Gall Bladder Disease: Yes - GENITOURINARY/GYNECOLOGICAL Hx Genitourinary Disorders: No - PSYCHIATRIC Hx Substance Use: No - SURGICAL HISTORY Hx Cholecystectomy: Yes - ANESTHESIA Hx Anesthesia: Yes Hx Anesthesia Reactions: No Hx Malignant Hyperthermia: No Meds Allergies/Adverse Reactions: Allergies Allergy/AdvReac Type Severity Reaction Status Date / Time No Known Allergies Allergy Verified 12/04/17 22:03 - Medications Medications: Current Medications Alprazolam (Xanax) 0.5 mg PO BID PRN PRN Reason: Anxiety Last Admin: 01/02/18 08:20 Dose: 0.5 mg Amlodipine Besylate (Norvasc) 10 mg PO DAILY [facility] Last Admin: 01/02/18 09:38 Dose: 10 mg Calcium Acetate (Phoslo) 667 mg PO TID [facility] Last Admin: 01/02/18 13:39 Dose: 667 mg Clonidine HCl (Catapres) 0.2 mg PO BID [facility] Last Admin: 01/02/18 09:38 Dose: 0.2 mg Epoetin Glenn (Procrit) 10,000 unit IV MWF [facility] Heparin Sodium (Porcine) (Heparin) 5,000 units SC Q12 [facility] Last Admin: 01/02/18 09:38 Dose: 5,000 units Vancomycin HCl 1 gm/ Sodium (Chloride) 200 mls @ 133.333 mls/hr [place] [facility] [place] Reason: Protocol Gentamicin Sulfate/Sodium Chloride (Gentamicin 60mg/50ml Ns) 60 mg in 50 mls @ 100 mls/hr [place] [facility] [place]N Reason: Protocol Labetalol HCl (Normodyne) 300 mg PO BID [facility] Last Admin: 01/02/18 09:38 Dose: 300 mg Ondansetron HCl (Zofran Inj) 4 mg IVP Q6 PRN PRN Reason: Nausea/Vomiting Oxycodone/Acetaminophen (Percocet 5/325 Mg Tab) 1 tab PO Q6H PRN PRN Reason: Pain, moderate (4-7) Stop: 01/02/18 21:04 Last Admin: 01/01/18 21:46 Dose: 1 tab Oxycodone/Acetaminophen (Percocet 5/325 Mg Tab) 2 tab PO Q4H PRN PRN Reason: Pain, severe (8-10) Stop: 01/03/18 13:27 Last Admin: 01/02/18 11:56 Dose: 2 tab Pantoprazole Sodium (Protonix Ec Tab) 40 mg PO DAILY [facility] Last Admin: 01/02/18 09:38 Dose: 40 mg Physical Exam - Additional Findings Additional findings: Musculoskektla stance erect pt ambulating with walkjer/essentially normal Lbilateral heel toe gait ROM L hip releative;ly painless when pt distracted Pt with4+ discomfport sciatoic notch pts complaint sof L olower extremity sciatica Results - Vital Signs Recent Vital Signs: Last Vital Signs Temp 98.3 F 01/02/18 08:00 Pulse 60 01/02/18 08:00 Resp 20 01/02/18 08:00 BP 139/88 01/02/18 08:00 Pulse Ox 95 01/02/18 08:00 - Labs Result Diagrams: 01/02/18 08:11 01/02/18 08:23 Labs: Laboratory Results - last 24 hr 01/02/18 01/02/18 01/02/18 08:11 08:11 08:23 WBC 7.6 RBC 3.54 L Hgb 10.7 L Hct 31.1 L MCV 88.0 MCH 30.2 MCHC 34.3 RDW 14.8 H Plt Count 301 MPV 7.7 Neut % (Auto) 69.9 Lymph % (Auto) 18.4 L Brule % (Auto) 6.7 Eos % (Auto) 4.3 H Baso % (Auto) 0.7 Neut # (Auto) 5.3 Lymph # (Auto) 1.4 Brule # (Auto) 0.5 Eos # (Auto) 0.3 Baso # (Auto) 0.1 Sodium 138 Potassium 3.7 Chloride 100 Carbon Dioxide 24 Anion Gap 18 BUN 22 H Creatinine 2.6 H Est GFR ( Amer) 25 Est GFR (Non-Af Amer) 21 Random Glucose 113 H Calcium 9.3 Phosphorus 3.7 Magnesium 2.1 Total Bilirubin 0.4 AST 15 ALT 14 Alkaline Phosphatase 103 Total Protein 7.0 Albumin 4.3 Globulin 2.7 Albumin/Globulin Ratio 1.6 Hepatitis A IgM Ab Hep Bs Antigen Hep B Core IgM Ab Hepatitis C Antibody HIV 1&2 Antibody Screen Negative 01/02/18 08:23 WBC RBC Hgb Hct MCV MCH MCHC RDW Plt Count MPV Neut % (Auto) Lymph % (Auto) Brule % (Auto) Eos % (Auto) Baso % (Auto) Neut # (Auto) Lymph # (Auto) Brule # (Auto) Eos # (Auto) Baso # (Auto) Sodium Potassium Chloride Carbon Dioxide Anion Gap BUN Creatinine Est GFR ( Amer) Est GFR (Non-Af Amer) Random Glucose Calcium Phosphorus Magnesium Total Bilirubin AST ALT Alkaline Phosphatase Total Protein Albumin Globulin Albumin/Globulin Ratio Hepatitis A IgM Ab Negative Hep Bs Antigen Negative Hep B Core IgM Ab Negative Hepatitis C Antibody Negative HIV 1&2 Antibody Screen - Impressions Impression: MRI L hip esentially negative/ no evidenced for fluid collection Assessment & Plan - Assessment and Plan (Free Text) Assessment: A- L sciatica no evidence for septic L hip P recommend MRI and consault with neurosuregry signing off case Thank you
[2018-01-03] MEDS: Oxycodone/Acetaminophen 5/325 mg Tab PO PRN ×5 (01:48→21:14)
[2018-01-03 09:02] LABS: BASO # 0.1 K/uL (0.0-0.2); BASO % 0.7 % (0.0-2.0); EOS # 0.4 K/uL (0.0-0.7); EOS % 5.4 % (0.0-4.0); HEMOGLOBIN 10.4 g/dL (11.0-16.0); LYMPH # 1.7 K/uL (1.0-4.3); MEAN CELL VOLUME 88.4 fL (81.0-99.0); MEAN CORPUSCULAR HEMOGLOBIN 30.2 pg (27.0-31.0); MEAN CORPUSCULAR HGB CONC 34.1 g/dL (33.0-37.0); MEAN PLATELET VOLUME 7.5 fL (7.2-11.7); MONO # 0.5 K/uL (0.0-0.8); MONO % 6.5 % (0.0-10.0); NEUT % 65.4 % (50.0-75.0); NRBC % 0.1 % (0.0-2.0); RBC 3.43 Mil/uL (3.80-5.20); RED CELL DISTRIBUTION WIDTH 14.7 % (11.5-14.5); WHITE BLOOD COUNT 7.6 K/uL (4.8-10.8)
[2018-01-03 09:38] LABS: ALB/GLOB RATIO 1.6 (1.0-2.1); ALBUMIN 4.2 g/dL (3.5-5.0); CALCIUM 9.7 mg/dl (8.6-10.4)
[2018-01-03] MEDS: Labetalol Hydrochloride 300 mg Tab PO SCH ×2 (09:53→17:31)
[2018-01-03] MEDS: Pantoprazole 40 mg EC Tab PO SCH (09:53)
--- NOTE | 2018-01-03 14:52 | CP.PCM.PN ---
Subjective - Date & Time of Evaluation Date of Evaluation: 01/03/18 Time of Evaluation: 14:49 - Subjective Subjective: Surgery: Dr. Burgos Pt seen and examined. Resting comfortably in bed. No complaints. Objective - Vital Signs/Intake and Output Vital Signs (last 24 hours): Temp Pulse Resp BP Pulse Ox 98.5 F 62 20 168/93 H 97 01/03/18 08:00 01/03/18 08:00 01/03/18 08:00 01/03/18 08:00 01/03/18 08:00 Intake and Output: 01/03/18 01/03/18 06:59 18:59 Intake Total 400 240 Balance 400 240 - Medications Medications: Current Medications Alprazolam (Xanax) 0.5 mg PO BID PRN PRN Reason: Anxiety Last Admin: 01/03/18 08:18 Dose: 0.5 mg Amlodipine Besylate (Norvasc) 10 mg PO DAILY [facility] Last Admin: 01/03/18 09:53 Dose: 10 mg Calcium Acetate (Phoslo) 667 mg PO TIDCC [facility] Last Admin: 01/03/18 12:10 Dose: 667 mg Clonidine HCl (Catapres) 0.2 mg PO BID [facility] Last Admin: 01/03/18 09:53 Dose: 0.2 mg Epoetin Glenn (Procrit) [facility],[address] [facility] Vancomycin HCl 1 gm/ Sodium (Chloride) 200 mls @ 133.333 mls/hr IVPB [facility] [place] PRN Reason: Protocol Gentamicin Sulfate/Sodium Chloride (Gentamicin 60mg/50ml Ns) 60 mg in 50 mls @ 100 mls/hr IVPB [facility] [place] PRN Reason: Protocol Labetalol HCl (Normodyne) 300 mg PO BID [facility] Last Admin: 01/03/18 09:53 Dose: 300 mg Ondansetron HCl (Zofran Inj) 4 mg IVP Q6 PRN PRN Reason: Nausea/Vomiting Pantoprazole Sodium (Protonix Ec Tab) 40 mg PO DAILY [facility] Last Admin: 01/03/18 09:53 Dose: 40 mg - Labs Labs: 01/03/18 08:56 01/03/18 08:56 APTT 32 SECONDS (21-34) 12/30/17 13:44 - Constitutional Appears: Non-toxic, No Acute Distress - Head Exam Head Exam: ATRAUMATIC, NORMOCEPHALIC - Eye Exam Eye Exam: EOMI - ENT Exam ENT Exam: Mucous Membranes Moist - Neck Exam Neck Exam: Full ROM - Respiratory Exam Respiratory Exam: NORMAL BREATHING PATTERN. absent: Accessory Muscle Use, Respiratory Distress - GI/Abdominal Exam GI & Abdominal Exam: Soft. absent: Distended, Firm, Guarding, Rigid, Tenderness - Extremities Exam Additional comments: LUE dressing in place C/D/I - Neurological Exam Neurological Exam: Alert, Awake, Oriented x3 - Psychiatric Exam Psychiatric exam: Normal Affect, Normal Mood - Skin Skin Exam: Dry, Warm Assessment and Plan - Assessment and Plan (Free Text) Assessment: 37F POD#3 s/p removal of L AV shunt and insertion of permacath -Will plan for AVF this thursday -c/w current medical management -d/w attending Pradip PGY4
[2018-01-04] MEDS: Oxycodone/Acetaminophen 5/325 mg Tab PO PRN ×4 (05:33→19:22)
[2018-01-04 07:46] LABS: BASO # 0.1 K/uL (0.0-0.2); BASO % 0.8 % (0.0-2.0); EOS # 0.4 K/uL (0.0-0.7); EOS % 5.6 % (0.0-4.0); HEMOGLOBIN 9.9 g/dL (11.0-16.0); LYMPH # 1.4 K/uL (1.0-4.3); LYMPH % 20.1 % (20.0-40.0); MEAN CELL VOLUME 88.8 fL (81.0-99.0); MEAN CORPUSCULAR HEMOGLOBIN 30.6 pg (27.0-31.0); MEAN CORPUSCULAR HGB CONC 34.5 g/dL (33.0-37.0); MEAN PLATELET VOLUME 7.3 fL (7.2-11.7); MONO # 0.5 K/uL (0.0-0.8); NEUT # 4.6 K/uL (1.8-7.0); NEUT % 66.5 % (50.0-75.0); NRBC % 0.2 % (0.0-2.0); RBC 3.22 Mil/uL (3.80-5.20); RED CELL DISTRIBUTION WIDTH 14.8 % (11.5-14.5)
[2018-01-04 08:15] LABS: ALB/GLOB RATIO 1.4 (1.0-2.1); ALBUMIN 3.6 g/dL (3.5-5.0); CALCIUM 9.3 mg/dl (8.6-10.4)
[2018-01-04] MEDS ORDERED: Epoetin Alfa 10,000 unit/ml Dialysis IV SCH (09:00)
[2018-01-04] MEDS ORDERED: Gentamicin 60mg/50ml NS 60 MG/50 ML BAG IVPB SCH (09:00)
[2018-01-04] MEDS ORDERED: Vancomycin 1 GM in Sodium Chloride 0.9% 200 ML IVPB SCH (09:00)
--- NOTE | 2018-01-04 09:17 | PN ---
Copied To: Joseph Zuleta MD Attending MD: Joseph Zuleta MD DATE: 01/03/2018 The patient is to get supportive care. Pain medication. IV antibiotics. Joseph Zuleta MD [facility] # [id number]
[2018-01-04] MEDS: Labetalol Hydrochloride 300 mg Tab PO SCH ×2 (10:01→18:36)
[2018-01-04] MEDS: Pantoprazole 40 mg EC Tab PO SCH (10:05)
--- NOTE | 2018-01-04 11:16 | MRI ---
Date of service: 01/04/2018 PROCEDURE: MR LUMBAR SPINE WITHOUT CONTRAST HISTORY: rule out osteomyelitis COMPARISON: None available. TECHNIQUE: Multiecho multiplanar sequences were performed through the lumbar spine without the use of intravenous contrast. FINDINGS: There is normal alignment of the lumbar vertebral bodies. There is normal lumbar lordosis. There is no acute fracture or spondylolysis. Bone marrow is heterogeneous predominantly hypo intense on T1 and T2 weighted images. The conus medullaris terminates at a normal level and the nerve roots of cauda equina are normal. The paraspinous soft tissues are normal. Imaged portion of the retroperitoneum is within normal limits. T12-L1: Small left paracentral disc protrusion without central spinal canal stenosis. No neural foraminal narrowing L1-2: No disc herniation, spinal canal stenosis or neural foraminal narrowing. L2-3: No disc herniation, spinal canal stenosis or neural foraminal narrowing. L3-4: No disc herniation, spinal canal stenosis or neural foraminal narrowing. L4-5: Posterior disc bulge and superimposed right foraminal annular tear and small disc protrusion. No central spinal canal stenosis. Mild bilateral facet arthropathy contribute to mild neural foraminal narrowing. L5-S1: Diffuse posterior disc bulge without central spinal canal stenosis. Mild bilateral facet arthropathy contribute to mild neural foraminal narrowing. OTHER FINDINGS: None. IMPRESSION: 1. No acute fracture. 2. Diffuse heterogeneous predominantly decreased bone marrow signal in keeping with osseous changes of renal osteodystrophy. 3. Mild degenerative disc disease, worse at L5-S1. No central spinal canal stenosis.
--- NOTE | 2018-01-04 11:47 | CP.PCM.PN ---
Subjective - Date & Time of Evaluation Date of Evaluation: 01/04/18 Time of Evaluation: 11:44 - Subjective Subjective: PGY3 progress note for Dr. Zuleta Pt seen and examined at bedside. No acute events overnight. Patient continues to complain of left hip pain radiating down the lateral aspect of her leg. Denies having any numbness/tingling in lower extremities, bowel/bladder incontinence, saddle anesthesia. Denies having any CP, SOB, abd pain, N/v/D/c, F/C. Objective - Vital Signs/Intake and Output Vital Signs (last 24 hours): Temp Pulse Resp BP Pulse Ox 98.2 F 63 20 130/80 99 01/04/18 08:00 01/04/18 08:00 01/04/18 08:00 01/04/18 08:00 01/04/18 08:00 Intake and Output: 01/04/18 01/04/18 06:59 18:59 Intake Total 60 Balance 60 - Medications Medications: Current Medications Alprazolam (Xanax) 0.5 mg PO BID PRN PRN Reason: Anxiety Last Admin: 01/03/18 20:24 Dose: 0.5 mg Amlodipine Besylate (Norvasc) 10 mg PO DAILY [facility] Last Admin: 01/04/18 10:01 Dose: Not Given Calcium Acetate (Phoslo) 667 mg PO TIDCC [facility] Last Admin: 01/04/18 09:00 Dose: 667 mg Clonidine HCl (Catapres) 0.2 mg PO BID [facility] Last Admin: 01/04/18 10:01 Dose: Not Given Epoetin Glenn (Procrit) 10,000 unit IV [facility] [place] Heparin Sodium (Porcine) (Heparin) 5,000 units SC Q12 [facility] Last Admin: 01/04/18 10:26 Dose: 5,000 units Vancomycin HCl 1 gm/ Sodium (Chloride) 200 mls @ 133.333 mls/hr IVPB [facility] [place] PRN Reason: Protocol Gentamicin Sulfate/Sodium Chloride (Gentamicin 60mg/50ml Ns) 60 mg in 50 mls @ 100 mls/hr IVPB [facility] [place] PRN Reason: Protocol Labetalol HCl (Normodyne) 300 mg PO BID [facility] Last Admin: 01/04/18 10:01 Dose: Not Given Ondansetron HCl (Zofran Inj) 4 mg IVP Q6 PRN PRN Reason: Nausea/Vomiting Oxycodone/Acetaminophen (Percocet 5/325 Mg Tab) 2 tab PO Q4H PRN PRN Reason: Pain, severe (8-10) Stop: 01/06/18 17:05 Last Admin: 01/04/18 10:27 Dose: 2 tab Pantoprazole Sodium (Protonix Ec Tab) 40 mg PO DAILY [facility] Last Admin: 01/04/18 10:05 Dose: 40 mg - Labs Labs: 01/04/18 07:15 01/04/18 07:15 APTT 32 SECONDS (21-34) 12/30/17 13:44 - Constitutional Appears: Non-toxic, No Acute Distress - Head Exam Head Exam: ATRAUMATIC, NORMOCEPHALIC - ENT Exam ENT Exam: Mucous Membranes Moist - Respiratory Exam Respiratory Exam: Clear to Ausculation Bilateral. absent: Accessory Muscle Use , Rales, Rhonchi, Wheezes, Respiratory Distress - Cardiovascular Exam Cardiovascular Exam: REGULAR RHYTHM, +S1, +S2. absent: Gallop, Rubs, Murmur - GI/Abdominal Exam GI & Abdominal Exam: Soft, Normal Bowel Sounds. absent: Distended, Firm, Guarding, Rigid, Tenderness, Organomegaly - Extremities Exam Extremities Exam: absent: Pedal Edema, Tenderness - Neurological Exam Neurological Exam: Alert, Awake, Oriented x3 - Psychiatric Exam Psychiatric exam: Normal Affect, Normal Mood - Skin Skin Exam: Dry, Intact, Normal Color, Warm Assessment and Plan - Assessment and Plan (Free Text) Assessment: Malfunctioning AV shunt -S/P Left AV shunt removal POD # 4 -Wound cultures positive for Staph epidermidis. -Vascular surgery, Dr. Pedraza is consulted -ID, Dr. Sosa is consulted. Recommends 8 weeks of Abx -Continue Abx with dialysis treatment: Vancomycin and Gentamycin ESRD -Consult placed to Dr. Jordan; Recs appreciated HD M-W- through permacath - Plan for AV fistula placement in right arm on 01/05 with vascular surgeon. L hip pain -MRI L hip 01/01/18- SI joint edema at inferior L sacrum and adjacent to L iliac bone. Possible sacroiliitis. 3cm uterine Fibroid with multiloculated cyst in b/ l adnexa up to 5cm on the left / 5.5cm on the right. see full report. - Orthopedics, Dr. Pavon consulted. Per ortho note, pain likely 2/2 left sided sciatica pain. Recommend MRI of lumbar spine -Percocet 1-2T PO q4hrs prn pain Acute low back pain -MRI lumbar spine 01/04/18: no acute fractures. Decreased bone marrow signal likely from renal osteodystrophy. Mild degenerative disc disease, worse at L5-- S1. No central spinal canal stenosis. - Continue PT - Continue pain management with Percocet. Pt will likely need pain management referral upon discharge Bacteremia - Blood and wound cultures positive for staph epidermidis. - ID consulted. Recommends [facility] to r/o endocarditis. - The becteremia is likely from the wound infection. However, will get [facility] - Echo done on 01/02/18 showed normal LV size and function. Grade 1 abnormal relaxation pattern. Mild aortic regurg. mitral valve moderately thickened with mod MR. Mild TR and mild pulm HTN. no vegetation. HTN Labetalol 300mg PO BID Recently elevated- likely due to hip pain/anxiety PPX Protonix 40mg PO daily Heparin 5000u SC q12hrs Case discussed with attending. All medical management as per Dr. Avinash Zuleta.
--- NOTE | 2018-01-04 11:57 | CP.PCM.PN ---
Subjective - Date & Time of Evaluation Date of Evaluation: 01/04/18 Time of Evaluation: 11:54 - Subjective Subjective: Alert; afebrile now Has chronic LE, hip pains Stable dialysis 01/01 HTN controlled On IV ABs for staph epi bacteremia; repeat cultures negative. No n, v, fevers, chills, diarrhea, SOB Objective - Vital Signs/Intake and Output Vital Signs (last 24 hours): Temp Pulse Resp BP Pulse Ox 98.2 F 63 20 130/80 99 01/04/18 08:00 01/04/18 08:00 01/04/18 08:00 01/04/18 08:00 01/04/18 08:00 Intake and Output: 01/04/18 01/04/18 06:59 18:59 Intake Total 60 Balance 60 - Medications Medications: Current Medications Alprazolam (Xanax) 0.5 mg PO BID PRN PRN Reason: Anxiety Last Admin: 01/03/18 20:24 Dose: 0.5 mg Amlodipine Besylate (Norvasc) 10 mg PO DAILY [facility] Last Admin: 01/04/18 10:01 Dose: Not Given Calcium Acetate (Phoslo) 667 mg PO TIDCC [facility] Last Admin: 01/04/18 09:00 Dose: 667 mg Clonidine HCl (Catapres) 0.2 mg PO BID [facility] Last Admin: 01/04/18 10:01 Dose: Not Given Epoetin Glenn (Procrit) 10,000 unit IV [facility] [place] Heparin Sodium (Porcine) (Heparin) 5,000 units SC Q12 [facility] Last Admin: 01/04/18 10:26 Dose: 5,000 units Vancomycin HCl 1 gm/ Sodium (Chloride) 200 mls @ 133.333 mls/hr IVPB [facility] PRN Reason: Protocol Gentamicin Sulfate/Sodium Chloride (Gentamicin 60mg/50ml Ns) 60 mg in 50 mls @ 100 mls/hr IVPB [facility] PRN Reason: Protocol Labetalol HCl (Normodyne) 300 mg PO BID [facility] Last Admin: 01/04/18 10:01 Dose: Not Given Ondansetron HCl (Zofran Inj) 4 mg IVP Q6 PRN PRN Reason: Nausea/Vomiting Oxycodone/Acetaminophen (Percocet 5/325 Mg Tab) 2 tab PO Q4H PRN PRN Reason: Pain, severe (8-10) Stop: 01/06/18 17:05 Last Admin: 01/04/18 10:27 Dose: 2 tab Pantoprazole Sodium (Protonix Ec Tab) 40 mg PO DAILY [facility] Last Admin: 01/04/18 10:05 Dose: 40 mg - Labs Labs: 01/04/18 07:15 01/04/18 07:15 APTT 32 SECONDS (21-34) 12/30/17 13:44 - Constitutional Appears: No Acute Distress, Chronically Ill - Head Exam Head Exam: ATRAUMATIC, NORMAL INSPECTION - Eye Exam Eye Exam: EOMI, Normal appearance - Neck Exam Neck Exam: Normal Inspection. absent: Tenderness - Respiratory Exam Respiratory Exam: Clear to Ausculation Bilateral, NORMAL BREATHING PATTERN - Cardiovascular Exam Cardiovascular Exam: REGULAR RHYTHM, +S1 - GI/Abdominal Exam GI & Abdominal Exam: Soft. absent: Tenderness - Extremities Exam Extremities Exam: Normal Inspection. absent: Tenderness - Neurological Exam Neurological Exam: Awake, CN II-XII Intact - Skin Skin Exam: Dry, Warm Assessment and Plan (1) Infection of AV graft for dialysis Status: Acute (2) Hypertensive chronic kidney disease with stage 5 chronic kidney disease or end stage renal disease Status: Acute (3) ESRD (end stage renal disease) Status: Chronic - Assessment and Plan (Free Text) Plan: Dialysis now and MWF IV ABs- as per medicine HTN controlled- same meds Can discuss with surgery about timing of new AV access
--- NOTE | 2018-01-04 19:48 | CP.PCM.PN ---
Subjective - Date & Time of Evaluation Date of Evaluation: 01/04/18 Time of Evaluation: 06:40 - Subjective Subjective: Patient seen and examined this morning. No acute events over night. No complaints. For dialysis today. Objective - Vital Signs/Intake and Output Vital Signs (last 24 hours): Temp Pulse Resp BP Pulse Ox 98.1 F 62 16 151/90 H 100 01/04/18 18:15 01/04/18 18:15 01/04/18 18:15 01/04/18 18:15 01/04/18 18:15 Intake and Output: 01/04/18 01/05/18 18:59 06:59 Intake Total 540 Balance 540 - Medications Medications: Current Medications Alprazolam (Xanax) 0.5 mg PO BID PRN PRN Reason: Anxiety Last Admin: 01/03/18 20:24 Dose: 0.5 mg Amlodipine Besylate (Norvasc) [address] [facility] Last Admin: 01/04/18 10:01 Dose: Not Given Calcium Acetate (Phoslo) [address] [facility] Last Admin: 01/04/18 18:36 Dose: 667 mg Clonidine HCl (Catapres) 0.[address] [facility] Last Admin: 01/04/18 18:24 Dose: 0.2 mg Epoetin Glenn (Procrit) 10,000 unit IV [facility] [place] Last Admin: 01/04/18 17:46 Dose: 10,000 unit Heparin Sodium (Porcine) (Heparin) 5,[address] [facility] Last Admin: 01/04/18 10:26 Dose: 5,000 units Heparin Sodium (Porcine) (Heparin) 3,700 units IVP [facility] Stop: 01/15/18 09:01 Last Admin: 01/04/18 18:09 Dose: 3,700 units Vancomycin HCl 1 gm/ Sodium (Chloride) 200 mls @ 133.333 mls/hr IVPB [facility] [place] PRN Reason: Protocol Last Admin: 01/04/18 18:37 Dose: 133.333 mls/hr Gentamicin Sulfate/Sodium Chloride (Gentamicin 60mg/50ml Ns) 60 mg in 50 mls @ 100 mls/hr IVPB [facility] [place] PRN Reason: Protocol Last Admin: 01/04/18 18:37 Dose: 100 mls/hr Labetalol HCl (Normodyne) [address] [facility] Last Admin: 01/04/18 18:36 Dose: 300 mg Ondansetron HCl (Zofran Inj) 4 mg IVP Q6 PRN PRN Reason: Nausea/Vomiting Oxycodone/Acetaminophen (Percocet 5/325 Mg Tab) 2 tab PO Q4H PRN PRN Reason: Pain, severe (8-10) Stop: 01/06/18 17:05 Last Admin: 01/04/18 19:22 Dose: 2 tab Pantoprazole Sodium (Protonix Ec Tab) [address] [facility] Last Admin: 01/04/18 10:05 Dose: 40 mg - Labs Labs: 01/04/18 07:15 01/04/18 07:15 APTT 32 SECONDS (21-34) 12/30/17 13:44 - Head Exam Head Exam: NORMOCEPHALIC - ENT Exam ENT Exam: Mucous Membranes Moist - Respiratory Exam Respiratory Exam: NORMAL BREATHING PATTERN - Cardiovascular Exam Cardiovascular Exam: +S1, +S2 - GI/Abdominal Exam GI & Abdominal Exam: Soft - Neurological Exam Neurological Exam: Alert, Awake, Oriented x3 - Psychiatric Exam Psychiatric exam: Normal Mood - Skin Skin Exam: Intact, Normal Color, Warm Assessment and Plan - Assessment and Plan (Free Text) Assessment: 37F POD#4 s/p removal of L AV shunt and insertion of permacath Plan: +Blood culture Will postpone AVF creation ABx per ID To go fo [facility] tomorrow D/w Dr. Burgos
--- NOTE | 2018-01-04 22:57 | CP.PCM.CON ---
History of Present Illness - History of Present Illness History of Present Illness: Patient scheduled for ASHANTI in am r/o Ebdocarditis Past Patient History - Infectious Disease Hx of Infectious Diseases: None - Past Medical History & Family History Past Medical History?: Yes - Past Social History Smoking Status: Light Smoker < 10 Cigarettes Daily Chewing Tobacco Use: No Cigar Use: No Alcohol: None Drugs: Denies Home Situation {Lives}: With Family - CARDIAC Hx Congestive Heart Failure: Yes Hx Hypertension: Yes - PULMONARY Hx Pneumonia: Yes - NEUROLOGICAL Hx Neurological Disorder: No - HEENT Hx HEENT Problems: Yes Other/Comment: eyeglasses for reading - RENAL Date of Last Dialysis Treatment: 12/28/17 - ENDOCRINE/METABOLIC Hx Endocrine Disorders: No - HEMATOLOGICAL/ONCOLOGICAL Hx Anemia: Yes - INTEGUMENTARY Hx Dermatological Problems: No - MUSCULOSKELETAL/RHEUMATOLOGICAL Hx Arthritis: Yes (L HIP) - GASTROINTESTINAL Hx Gall Bladder Disease: Yes - GENITOURINARY/GYNECOLOGICAL Hx Genitourinary Disorders: No - PSYCHIATRIC Hx Substance Use: No - SURGICAL HISTORY Hx Cholecystectomy: Yes - ANESTHESIA Hx Anesthesia: Yes Hx Anesthesia Reactions: No Hx Malignant Hyperthermia: No Meds Allergies/Adverse Reactions: Allergies Allergy/AdvReac Type Severity Reaction Status Date / Time No Known Allergies Allergy Verified 12/04/17 22:03 - Medications Medications: Current Medications Alprazolam (Xanax) 0.5 mg PO BID PRN PRN Reason: Anxiety Last Admin: 01/04/18 21:05 Dose: 0.5 mg Amlodipine Besylate (Norvasc) 10 mg PO DAILY [facility] Last Admin: 01/04/18 10:01 Dose: Not Given Calcium Acetate (Phoslo) 667 mg PO TIDCC [facility] Last Admin: 01/04/18 18:36 Dose: 667 mg Clonidine HCl (Catapres) 0.2 mg PO BID [facility] Last Admin: 01/04/18 18:24 Dose: 0.2 mg Epoetin Glenn (Procrit) 10,000 unit IV [facility] Last Admin: 01/04/18 17:46 Dose: 10,000 unit Heparin Sodium (Porcine) (Heparin) 5,000 units SC Q12 [facility] Last Admin: 01/04/18 20:59 Dose: 5,000 units Heparin Sodium (Porcine) (Heparin) 3,700 units IVP [facility] Stop: 01/15/18 09:01 Last Admin: 01/04/18 18:09 Dose: 3,700 units Vancomycin HCl 1 gm/ Sodium (Chloride) 200 mls @ 133.333 mls/hr IVPB [facility] PRN Reason: Protocol Last Admin: 01/04/18 18:37 Dose: 133.333 mls/hr Gentamicin Sulfate/Sodium Chloride (Gentamicin 60mg/50ml Ns) 60 mg in 50 mls @ 100 mls/hr IVPB [facility] PRN Reason: Protocol Last Admin: 01/04/18 18:37 Dose: 100 mls/hr Labetalol HCl (Normodyne) 300 mg PO BID [facility] Last Admin: 01/04/18 18:36 Dose: 300 mg Ondansetron HCl (Zofran Inj) 4 mg IVP Q6 PRN PRN Reason: Nausea/Vomiting Oxycodone/Acetaminophen (Percocet 5/325 Mg Tab) 2 tab PO Q4H PRN PRN Reason: Pain, severe (8-10) Stop: 01/06/18 17:05 Last Admin: 01/04/18 19:22 Dose: 2 tab Pantoprazole Sodium (Protonix Ec Tab) 40 mg PO DAILY [facility] Last Admin: 01/04/18 10:05 Dose: 40 mg Results - Vital Signs Recent Vital Signs: Last Vital Signs Temp 98.1 F 01/04/18 18:15 Pulse 62 01/04/18 18:15 Resp 16 01/04/18 18:15 BP 151/90 H 01/04/18 18:15 Pulse Ox 100 01/04/18 18:15 - Labs Result Diagrams: 01/04/18 07:15 01/04/18 07:15 Labs: Laboratory Results - last 24 hr 01/04/18 01/04/18 01/04/18 07:15 07:15 07:15 WBC 7.0 RBC 3.22 L Hgb 9.9 L Hct 28.6 L MCV 88.8 MCH 30.6 MCHC 34.5 RDW 14.8 H Plt Count 306 MPV 7.3 Neut % (Auto) 66.5 Lymph % (Auto) 20.1 [place] % (Auto) 7.0 Eos % (Auto) 5.6 H Baso % (Auto) 0.8 Neut # (Auto) 4.6 Lymph # (Auto) 1.4 [place] # (Auto) 0.5 Eos # (Auto) 0.4 Baso # (Auto) 0.1 Sodium 141 Potassium 4.2 Chloride 105 Carbon Dioxide 23 Anion Gap 17 BUN 45 H Creatinine 3.6 H Est GFR ( Amer) 17 Est GFR (Non-Af Amer) 14 Random Glucose 111 H Calcium 9.3 Phosphorus 4.5 Magnesium 2.3 Total Bilirubin 0.3 AST 22 ALT 20 Alkaline Phosphatase 81 Total Protein 6.2 L Albumin 3.6 Globulin 2.6 Albumin/Globulin Ratio 1.4 Random Vancomycin < 5.0
[2018-01-05 01:45] VITALS: BP 179/91; RESP 20
[2018-01-05 07:33] LABS: BASO # 0.1 K/uL (0.0-0.2); BASO % 0.8 % (0.0-2.0); EOS # 0.2 K/uL (0.0-0.7); EOS % 2.7 % (0.0-4.0); HEMOGLOBIN 11.2 g/dL (11.0-16.0); LYMPH # 1.1 K/uL (1.0-4.3); LYMPH % 12.3 % (20.0-40.0); MEAN CELL VOLUME 89.1 fL (81.0-99.0); MEAN CORPUSCULAR HEMOGLOBIN 30.8 pg (27.0-31.0); MEAN CORPUSCULAR HGB CONC 34.6 g/dL (33.0-37.0); MONO # 0.4 K/uL (0.0-0.8); MONO % 4.7 % (0.0-10.0); NEUT % 79.5 % (50.0-75.0); RBC 3.63 Mil/uL (3.80-5.20); RED CELL DISTRIBUTION WIDTH 14.9 % (11.5-14.5); WHITE BLOOD COUNT 8.9 K/uL (4.8-10.8)
[2018-01-05 07:49] LABS: ALB/GLOB RATIO 1.5 (1.0-2.1)
[2018-01-05 07:52] VITALS: PULSE 65; TEMP 99.2; O2SAT 99
[2018-01-05] MEDS: Pantoprazole 40 mg EC Tab PO SCH ×2 (08:42→09:25)
[2018-01-05] MEDS: Labetalol Hydrochloride 300 mg Tab PO SCH ×2 (08:43→12:33)
[2018-01-05] MEDS ORDERED: Lidocaine 4% (Laryng-O-Jet) Kit MM ONE (09:13)
--- NOTE | 2018-01-05 09:20 | CP.PCM.PN ---
Subjective - Date & Time of Evaluation Date of Evaluation: 01/05/18 Time of Evaluation: 09:18 - Subjective Subjective: could not be seen, at [facility]I s/p permcath, graft removal on antibiotics for staph epi bacteremia. repeat cultures negative bp high noted Objective - Vital Signs/Intake and Output Vital Signs (last 24 hours): Temp Pulse Resp BP Pulse Ox 99.2 F 65 20 179/91 H 99 01/05/18 07:52 01/05/18 07:52 01/05/18 07:52 01/05/18 00:00 01/05/18 07:52 Intake and Output: 01/05/18 01/05/18 06:59 18:59 Intake Total 650 Balance 650 - Medications Medications: Current Medications Alprazolam (Xanax) 0.5 mg PO BID PRN PRN Reason: Anxiety Last Admin: 01/04/18 21:05 Dose: 0.5 mg Amlodipine Besylate (Norvasc) 10 mg PO DAILY [facility] Last Admin: 01/05/18 08:42 Dose: 10 mg Calcium Acetate (Phoslo) 667 mg PO TIDCC [facility] Last Admin: 01/05/18 08:41 Dose: Not Given Clonidine HCl (Catapres) 0.2 mg PO BID [facility] Last Admin: 01/05/18 08:42 Dose: 0.2 mg Epoetin Glenn (Procrit) 10,000 unit IV [facility] Last Admin: 01/04/18 17:46 Dose: 10,000 unit Heparin Sodium (Porcine) (Heparin) 5,000 units SC Q12 [facility] Last Admin: 01/04/18 20:59 Dose: 5,000 units Heparin Sodium (Porcine) (Heparin) 3,700 units IVP [facility] Stop: 01/15/18 09:01 Last Admin: 01/04/18 18:09 Dose: 3,700 units Vancomycin HCl 1 gm/ Sodium (Chloride) 200 mls @ 133.333 [facility]ls[facility] Reason: Protocol Last Admin: 01/04/18 18:37 Dose: 133.333 mls/hr Gentamicin Sulfate/Sodium Chloride (Gentamicin 60mg/50ml Ns) 60 mg in 50 mls @ 100 mls/hr IVPB [facility] PRN Reason: Protocol Last Admin: 01/04/18 18:37 Dose: 100 mls/hr Labetalol HCl (Normodyne) 300 mg PO BID [facility] Last Admin: 01/05/18 08:43 Dose: 300 mg Ondansetron HCl (Zofran Inj) 4 mg IVP Q6 PRN PRN Reason: Nausea/Vomiting Oxycodone/Acetaminophen (Percocet 5/325 Mg Tab) 2 tab PO Q4H PRN PRN Reason: Pain, severe (8-10) Stop: 01/06/18 17:05 Last Admin: 01/04/18 19:22 Dose: 2 tab Pantoprazole Sodium (Protonix Ec Tab) 40 mg PO DAILY [facility] Last Admin: 01/05/18 08:42 Dose: 40 mg - Labs Labs: 01/05/18 07:24 01/05/18 07:24 APTT 32 SECONDS (21-34) 12/30/17 13:44 Assessment and Plan (1) ESRD (end stage renal disease) on dialysis Status: Acute (2) Infection of AV graft for dialysis Status: Acute (3) HTN (hypertension) Status: Acute - Assessment and Plan (Free Text) Assessment: maintain hd mwf add hydralazine for bp control new av graft placement per vascular, plan for ASHANTI today noted
[2018-01-05] MEDS ORDERED: Propofol 10 mg/ml Inj (20 ML) ONE ×2 (10:05→10:23)
[2018-01-05] MEDS ORDERED: Etomidate 20 mg/10ml Inj IV ONE (10:05)
[2018-01-05] MEDS ORDERED: Lidocaine 2% MPF (5 ml) Inj ONE (10:06)
[2018-01-05] MEDS ORDERED: ePHEDrine 50 mg/ml Inj ONE (10:06)
--- NOTE | 2018-01-05 12:06 | CP.PCM.PN ---
Subjective - Date & Time of Evaluation Date of Evaluation: 01/05/18 Time of Evaluation: 14:09 - Subjective Subjective: Medicine progress note for Dr. Zuleta's service. Patient seen and examined. Patient s/p ASHANTI which was negative for endocarditis. Patient states she still has back and leg pain but it is less severe compared to yesterday. Patient states she feels improved and would like to go home and have PT at home rather than TCU/[facility]. Objective - Vital Signs/Intake and Output Vital Signs (last 24 hours): Temp Pulse Resp BP Pulse Ox 99.2 F 65 20 179/91 H 99 01/05/18 07:52 01/05/18 07:52 01/05/18 07:52 01/05/18 00:00 01/05/18 07:52 Intake and Output: 01/05/18 01/05/18 06:59 18:59 Intake Total 650 Balance 650 - Medications Medications: Current Medications Alprazolam (Xanax) 0.5 mg PO BID PRN PRN Reason: Anxiety Last Admin: 01/04/18 21:05 Dose: 0.5 mg Amlodipine Besylate (Norvasc) 10 mg PO DAILY [facility] Last Admin: 01/05/18 09:24 Dose: Not Given Calcium Acetate (Phoslo) 667 mg PO TIDCC [facility] Last Admin: 01/05/18 08:41 Dose: Not Given Clonidine HCl (Catapres) 0.2 mg PO BID [facility] Last Admin: 01/05/18 09:24 Dose: Not Given Epoetin Glenn (Procrit) 10,000 unit IV [facility] [place] Last Admin: 01/04/18 17:46 Dose: 10,000 unit Heparin Sodium (Porcine) (Heparin) 5,000 units SC Q12 [facility] Last Admin: 01/04/18 20:59 Dose: 5,000 units Heparin Sodium (Porcine) (Heparin) 3,700 units IVP [facility] [place] Stop: 01/15/18 09:01 Last Admin: 01/04/18 18:09 Dose: 3,700 units Hydralazine HCl (Apresoline) 25 mg PO TID [facility] Vancomycin HCl 1 gm/ Sodium (Chloride) 200 mls @ 133.333 mls/hr IVPB [facility] [place] PRN Reason: Protocol Last Admin: 01/04/18 18:37 Dose: 133.333 mls/hr Gentamicin Sulfate/Sodium Chloride (Gentamicin 60mg/50ml Ns) 60 mg in 50 mls @ 100 mls/hr IVPB M[facility] PRN Reason: Protocol Last Admin: 01/04/18 18:37 Dose: 100 mls/hr Labetalol HCl (Normodyne) 300 mg PO BID [facility] Last Admin: 01/05/18 08:43 Dose: 300 mg Ondansetron HCl (Zofran Inj) 4 mg IVP Q6 PRN PRN Reason: Nausea/Vomiting Oxycodone/Acetaminophen (Percocet 5/325 Mg Tab) 2 tab PO Q4H PRN PRN Reason: Pain, severe (8-10) Stop: 01/06/18 17:05 Last Admin: 01/04/18 19:22 Dose: 2 tab Pantoprazole Sodium (Protonix Ec Tab) 40 mg PO DAILY [facility] Last Admin: 01/05/18 09:25 Dose: Not Given - Labs Labs: 01/05/18 07:24 01/05/18 07:24 APTT 32 SECONDS (21-34) 12/30/17 13:44 - Constitutional Appears: No Acute Distress - Head Exam Head Exam: ATRAUMATIC, NORMOCEPHALIC - Eye Exam Eye Exam: EOMI - ENT Exam ENT Exam: Mucous Membranes Moist - Respiratory Exam Respiratory Exam: Clear to Ausculation Bilateral, NORMAL BREATHING PATTERN - Cardiovascular Exam Cardiovascular Exam: +S1, +S2 - GI/Abdominal Exam GI & Abdominal Exam: Soft, Normal Bowel Sounds. absent: Tenderness - Extremities Exam Additional comments: left axilla bandaged with minimal serosanguinous drainage - Neurological Exam Neurological Exam: Alert, Awake - Psychiatric Exam Psychiatric exam: Normal Affect - Skin Skin Exam: Warm - Additional Findings Additional findings: right chest permacath Assessment and Plan - Assessment and Plan (Free Text) Assessment: Malfunctioning AV shunt -S/P Left AV shunt removal POD # 5 -Wound cultures positive for Staph epidermidis. -Vascular surgery, Dr. Burgos consulted -ID, Dr. Garcia covering Dr. Sosa- recommends 2 weeks vancomycin on HD days ( MWF) -ASHANTI done 01/05/18 negative for endocarditis ESRD -Consult placed to Dr. Jordan; Recs appreciated HD -- through permacath - Plan for AV fistula placement in right arm postponed due to L hip pain -MRI L hip 01/01/18- SI joint edema at inferior L sacrum and adjacent to L iliac bone. Possible sacroiliitis. 3cm uterine Fibroid with multiloculated cyst in b/ l adnexa up to 5cm on the left / 5.5cm on the right. see full report. - Orthopedics, Dr. Pavon consulted. Per ortho note, pain likely 2/2 left sided sciatica pain. Recommend MRI of lumbar spine -Percocet 1-2T PO q4hrs prn pain Acute low back pain -MRI lumbar spine 01/04/18: no acute fractures. Decreased bone marrow signal likely from renal osteodystrophy. Mild degenerative disc disease, worse at L5-- S1. No central spinal canal stenosis. - Continue PT - Continue pain management with Percocet. Pt will likely need pain management referral upon discharge Bacteremia - Blood and wound cultures positive for staph epidermidis. Repeat cultures negative - ID consulted. Recommends ASHANTI to r/o endocarditis. ASHANTI done 01/05 and negative for endocarditis. Patient will need 6 more doses vancomycin on HD days - The bacteremia is likely from the wound infection. - Echo done on 01/02/18 showed normal LV size and function. Grade 1 abnormal relaxation pattern. Mild aortic regurg. mitral valve moderately thickened with mod MR. Mild TR and mild pulm HTN. no vegetation. HTN Labetalol 300mg PO BID Recently elevated- likely due to hip pain/anxiety hydralazine 25mg PO TID started 01/05 per nephrology PPX Protonix 40mg PO daily Heparin 5000u SC q12hrs PT recommend TCU, patient would prefer home PT. Case discussed with attending. All medical management as per Dr. Avinash Zuleta. Patient is stable for discharge home per Dr. Zuleta. Patient is to complete 6 more doses of vancomycin 1g IVPB on her hemodialysis days (MWF) with start day and stop date 01/18. Patient is to have home care services for home physical therapy and medical management. Patient is to follow up with Dr. Zuleta, Dr. Burgos, and her balance sheet analyst Dr. Jordan on discharge. She will also need referral to pain management per Dr. Zuleta. Patient is to return to the ED if her symptoms reoccur or worsen. This was explained to the patient who understands and agrees
--- NOTE | 2018-01-05 13:44 | CP.PCM.PCO ---
Physician Communication Note - Physician Communication Note Physician Communication Note: Patient had a ASHANTI today, which was negative for endocarditis.
== END 2018-01-05 16:17 | disposition home or self-care (01) | DRG 812 ==
LOC: C.ER 12:51 → C.9E 13:39 → C.3T 20:26
PROVIDERS: ADMIT Internal Medicine Pulmonary Disease; ATTEND Internal Medicine Pulmonary Disease
PROC: 5A1D70Z Performance of Urinary Filtration, Intermittent, Less than 6 Hours Per Day (ICD-10-PCS; 2017-12-30)
PROC: 0JPV3WZ Removal of Totally Implantable Vascular Access Device from Upper Extremity Subcutaneous Tissue and Fascia, Percutaneous Approach (ICD-10-PCS; principal; 2017-12-31 14:45)
PROC: 5A1D70Z Performance of Urinary Filtration, Intermittent, Less than 6 Hours Per Day (ICD-10-PCS; 2018-01-01)
PROC: 5A1D70Z Performance of Urinary Filtration, Intermittent, Less than 6 Hours Per Day (ICD-10-PCS; 2018-01-01)
DX: T82.7XXA Infection and inflammatory reaction due to other cardiac and vascular devices, implants and grafts, initial encounter (principal); N18.6 End stage renal disease; I13.2 Hypertensive heart and chronic kidney disease with heart failure and with stage 5 chronic kidney disease, or end stage renal disease; I50.9 Heart failure, unspecified; E11.22 Type 2 diabetes mellitus with diabetic chronic kidney disease; M54.42 Lumbago with sciatica, left side; M51.36 Other intervertebral disc degeneration, lumbar region; Z99.2 Dependence on renal dialysis; I27.20 Pulmonary hypertension, unspecified; F41.9 Anxiety disorder, unspecified; D25.9 Leiomyoma of uterus, unspecified

== ENCOUNTER 2018-02-04 22:02 | Emergency (ER) | payer MEDICAID ==
[2018-02-04 22:03] VITALS: BMI 25.2
--- NOTE | 2018-02-04 22:44 | C.PDOC ---
History Of Present Illness 37 y/o female presents to the ED complaining of SOB that began a few hours ago. The patient reports missing her dialysis yesterday. The patient denies any chest pain. Time Seen by Provider: 02/04/18 22:36 Chief Complaint (Nursing): Shortness Of Breath History Per: Patient History/Exam Limitations: no limitations Onset/Duration Of Symptoms: Hrs Current Symptoms Are (Timing): Still Present Recent travel outside of the [place]: No Past Medical History Reviewed: Historical Data, Nursing Documentation, Vital Signs Vital Signs: Last Vital Signs Temp 98.4 F 02/04/18 22:13 Pulse 77 02/04/18 22:13 Resp 16 02/04/18 22:22 BP 158/93 H 02/04/18 22:13 Pulse Ox 100 02/04/18 22:13 - Medical History PMH: Anemia, Anxiety, Arthritis (L HIP), CHF, Depression, Gall Bladder Disease, HTN, Kidney Stones (Left), Peripheral Edema, Pneumonia, End Stage Renal Disease, Chronic Kidney Disease Surgical History: Cholecystectomy, Endoscopy - [facility] Procedures (12/30/17) (05/25/17) INSERT OF INFUSION DEV INTO PERITON CAV, PERC ENDO APPROACH (11/08/16) INSERTION OF INFUSION DEV INTO SUP VENA CAVA, PERC APPROACH (05/25/17) IRRIGATION OF PERITON CAV USING DIALYSATE, PERC APPROACH (03/28/17) PERFORMANCE OF BILIARY FILTRATION, MULTIPLE (05/25/17) PERFORMANCE OF URINARY FILTRATION, SINGLE (12/31/16) PLAIN RADIOGRAPHY OF BILE DUCTS USING OTHER CONTRAST (11/29/16) REMOVE VAD RESERVOIR FROM UP EXTREM SUBCU/FASCIA, PERC (12/30/17) RESECTION OF GALLBLADDER, PERCUTANEOUS ENDOSCOPIC APPROACH (11/29/16) Family History: States: Unknown Family Hx - Social History Hx Alcohol Use: No Hx Substance Use: No - Immunization History Hx Tetanus Toxoid Vaccination: Yes Hx Influenza Vaccination: Yes Hx Pneumococcal Vaccination: Yes Review Of Systems Except As Marked, All Systems Reviewed And Found Negative. Constitutional: Negative for: Fever Cardiovascular: Negative for: Chest Pain Respiratory: Positive for: Shortness of Breath Physical Exam - Physical Exam Appears: Well, Non-toxic, No Acute Distress Skin: Normal Color, Warm, Dry Head: Atraumatic, Normacephalic Eye(s): bilateral: PERRL, EOMI Ear(s): Bilateral: Normal Oral Mucosa: Moist Neck: Supple Chest: Symmetrical Cardiovascular: Rhythm Regular, No Murmur Respiratory: Normal Breath Sounds, No Rales, No Rhonchi, No Wheezing Gastrointestinal/Abdominal: Soft, No Tenderness, No Distention Extremity: Normal ROM Extremity: Bilateral: Normal Color And Temperature, Normal ROM Neurological/Psych: Oriented x3, Normal Speech ED Course And Treatment - Laboratory Results Result Diagrams: 02/04/18 22:56 02/04/18 22:56 ECG: Interpreted By Me, Viewed By Me ECG Rhythm: Sinus Bradycardia ECG Interpretation: Normal, No Acute Changes Interpretation Of ECG: Sinus bradycardia, otherwise normal tracings. O2 Sat by Pulse Oximetry: 100 (RA) Pulse Ox Interpretation: Normal Medical Decision Making Medical Decision Making: Impression: 37 y/o with SOB after missing dialysis yesterday Plan: -EKG -CMP -B-Type Natriuretic -Troponin I -CBC -Chest X-Ray Disposition Counseled Patient/Family Regarding: Diagnosis - Disposition Referrals: [facility] [Outside] Disposition: HOME/ ROUTINE Disposition Time: 00:08 Condition: STABLE Additional Instructions: TO KEEP APPOINTMENT FOR DIALYSIS IN THE MORNING. Instructions: Hemodialysis (DC), End Stage Kidney Disease (DC) Forms: [email or web address] (Taiwanese) - POA Present On Arrival: None - Clinical Impression Clinical Impression: ESRD (end stage renal disease), ESRD (end stage renal disease) on dialysis - PA / [employer] / Resident Statement MD/DO has reviewed & agrees with the documentation as recorded. - Scribe Statement The provider has reviewed the documentation as recorded by the Scribe (Ameena Epps) Provider Attestation: All medical record entries made by the Scribe were at my direction and personally dictated by me. I have reviewed the chart and agree that the record accurately reflects my personal performance of the history, physical exam, medical decision making, and the department course for this patient. I have also personally directed, reviewed, and agree with the discharge instructions and disposition.
[2018-02-04 23:01] LABS: BASO # 0.1 K/uL (0.0-0.2); BASO % 1.5 % (0.0-2.0); EOS # 0.3 K/uL (0.0-0.7); EOS % 3.1 % (0.0-4.0); HEMOGLOBIN 12.1 g/dL (11.0-16.0); LYMPH # 2.5 K/uL (1.0-4.3); LYMPH % 26.7 % (20.0-40.0); MEAN CELL VOLUME 88.8 fL (81.0-99.0); MEAN CORPUSCULAR HEMOGLOBIN 30.4 pg (27.0-31.0); MEAN CORPUSCULAR HGB CONC 34.2 g/dL (33.0-37.0); MONO # 0.4 K/uL (0.0-0.8); MONO % 4.3 % (0.0-10.0); NEUT % 64.4 % (50.0-75.0); RBC 3.99 Mil/uL (3.80-5.20); WHITE BLOOD COUNT 9.4 K/uL (4.8-10.8)
[2018-02-04 23:21] LABS: ALB/GLOB RATIO 1.8 (1.0-2.1); ALBUMIN 4.7 g/dL (3.5-5.0); CALCIUM 9.6 mg/dl (8.6-10.4)
[2018-02-04 23:23] LABS: TROPONIN I 0.022 ng/mL (0.00-0.120)
[2018-02-05 00:52] VITALS: BP 154/96; PULSE 78; RESP 20; TEMP 98.2
[2018-02-05 05:55] VITALS: O2SAT 100
--- NOTE | 2018-02-05 10:50 | RAD ---
HISTORY: SOB COMPARISON: Chest x-ray performed 12/31/17 TECHNIQUE: Chest PA and lateral FINDINGS: Examination limited by habitus. Right-sided dialysis catheter extends to the cavoatrial junction/right atrium. LUNGS: No focal consolidation. Please note that chest x-ray has limited sensitivity for the detection of pulmonary masses. PLEURA: No significant pleural effusion identified. No definite pneumothorax . CARDIOVASCULAR: Borderline cardiomegaly. OSSEOUS STRUCTURES: Degenerative changes of the spine. VISUALIZED UPPER ABDOMEN: Unremarkable. OTHER FINDINGS: The left lateral chest wall is incompletely imaged. IMPRESSION: Right-sided dialysis catheter. Borderline cardiomegaly.
--- NOTE | 2018-02-05 11:45 | CARD ---
APPROVED REPORT Date of service: 02/04/2018 EKG Measurement Heart [id number] <Conclusion> Sinus bradycardia Otherwise normal ECG
--- NOTE | 2018-02-08 10:05 | CARD ---
APPROVED REPORT Date of service: 02/05/2018 EKG Measurement Heart [id number] <Conclusion> Sinus bradycardia Moderate voltage criteria for LVH, may be normal variant Nonspecific ST abnormality Abnormal ECG
== END 2018-02-05 00:52 | disposition home or self-care (01) ==
LOC: C.ER 22:02
DX: I12.0 Hypertensive chronic kidney disease with stage 5 chronic kidney disease or end stage renal disease (principal); N18.6 End stage renal disease; Z99.2 Dependence on renal dialysis

== ENCOUNTER 2018-02-05 18:58 | Emergency (ER) | payer MEDICAID ==
[2018-02-05 18:58] VITALS: BMI 25.2
[2018-02-05 19:12] VITALS: TEMP 98.6; O2SAT 100
--- NOTE | 2018-02-05 20:18 | C.PDOC ---
History Of Present Illness 37 y/o F c PMHx ESRD on HD and HTN p/w HTN. Patient states she was at dialysis, underwent a full session, had HTN 250 SBP and was instructed to come to ED by dialysis nurse. Patient states she did not want to come. Blood pressure upon arrival now 190s/100, which she states is baseline. She denies any symptoms including headache, vision change, dyspnea, chest pain, abdominal pain, back pain and is comfortable to go home. Time Seen by Provider: 02/05/18 19:47 Chief Complaint (Nursing): High Blood Pressure Past Medical History Vital Signs: Last Vital Signs Temp 98.6 F 02/05/18 19:01 Pulse 61 02/05/18 19:29 Resp 18 02/05/18 19:01 BP 225/130 H 02/05/18 19:01 Pulse Ox 100 02/05/18 19:01 - Medical History PMH: Anemia, Anxiety, Arthritis (L HIP), CHF, Depression, Gall Bladder Disease, HTN, Kidney Stones (Left), Peripheral Edema, Pneumonia, End Stage Renal Disease, Chronic Kidney Disease Surgical History: Cholecystectomy, Endoscopy - [facility] Procedures (12/30/17) (05/25/17) INSERT OF INFUSION DEV INTO PERITON CAV, PERC ENDO APPROACH (11/08/16) INSERTION OF INFUSION DEV INTO SUP VENA CAVA, PERC APPROACH (05/25/17) IRRIGATION OF PERITON CAV USING DIALYSATE, PERC APPROACH (03/28/17) PERFORMANCE OF BILIARY FILTRATION, MULTIPLE (05/25/17) PERFORMANCE OF URINARY FILTRATION, SINGLE (12/31/16) PLAIN RADIOGRAPHY OF BILE DUCTS USING OTHER CONTRAST (11/29/16) REMOVE VAD RESERVOIR FROM UP EXTREM SUBCU/FASCIA, PERC (12/30/17) RESECTION OF GALLBLADDER, PERCUTANEOUS ENDOSCOPIC APPROACH (11/29/16) Family History: States: Unknown Family Hx - Social History Hx Alcohol Use: No Hx Substance Use: No - Immunization History Hx Tetanus Toxoid Vaccination: Yes Hx Influenza Vaccination: Yes Hx Pneumococcal Vaccination: Yes Review Of Systems Except As Marked, All Systems Reviewed And Found Negative. Constitutional: Negative for: Fever Cardiovascular: Negative for: Chest Pain Physical Exam - Physical Exam Additional Physical Exam Comments: Gen: NAD Head: NC Eyes: PERRL ENT: MMM Neck: Supple Chest: No tenderness CV: Regular rate Lungs: CTA b/l Abd: Soft, NT Back: No CVA tenderness Skin: No rash Neuro: Alert Extremities: No edema ED Course And Treatment O2 Sat by Pulse Oximetry: 100 Medical Decision Making Medical Decision Making: Instructed to return to ED for any headache, vision change, chest pain, dyspnea, abdominal pain, back pain. Disposition - Disposition Disposition: HOME/ ROUTINE Disposition Time: 20:17 Condition: STABLE Instructions: High Blood Pressure Emergencies - Clinical Impression Clinical Impression: Asymptomatic hypertension
[2018-02-05 20:24] VITALS: BP 193/103; PULSE 62; RESP 16
== END 2018-02-05 20:31 | disposition home or self-care (01) ==
LOC: C.ER 18:58
DX: I10 Essential (primary) hypertension (principal)

== ENCOUNTER 2018-05-11 14:25 | Inpatient (IN) | payer MEDICAID, OTHER ==
[2018-05-11 14:37] VITALS: BMI 23.5
--- NOTE | 2018-05-11 15:53 | C.PDOC ---
History Of Present Illness 37 y/o female,w/PMhx of ESRD, presents to the ER complaining of bleeding from dialysis catheter. Patient states that she is supposed to have dialysis on Mondays, Wednesdays, and Fridays. Patient states that she missed her diaysais ap pointment on Thursday because of transportation issues. She notes that she was also not able have dialysis yesterday (Thursday) because there was bleeding from her catheter.Patient is complaining of arm and leg pain. Denies having fever, chills, CP, SOB, weakness, and numbness. Time Seen by Provider: 05/11/18 15:04 Chief Complaint (Nursing): Abnormal Skin Integrity History Per: Patient History/Exam Limitations: no limitations Onset/Duration Of Symptoms: Hrs Current Symptoms Are (Timing): Still Present Severity: Moderate Past Medical History Reviewed: Historical Data, Nursing Documentation, Vital Signs Vital Signs: Last Vital Signs Temp 98.3 F 05/11/18 14:37 Pulse 85 05/11/18 14:37 Resp 18 05/11/18 14:37 BP 115/73 05/11/18 14:37 Pulse Ox 99 05/11/18 14:37 - Medical History PMH: Anemia, Anxiety, Arthritis (L HIP), CHF, Depression, Gall Bladder Disease (CHOLECYSTECTOMY), HTN, Kidney Stones (Left), Pancreatitis (02-06-18), Peripheral Edema, Pneumonia, End Stage Renal Disease, Chronic Kidney Disease Surgical History: Cholecystectomy, Endoscopy - [facility] Procedures (04/30/18) (05/25/17) INSERT OF INFUSION DEV INTO PERITON CAV, PERC ENDO APPROACH (11/08/16) INSERTION OF INFUSION DEV INTO SUP VENA CAVA, PERC APPROACH (05/25/17) IRRIGATION OF PERITON CAV USING DIALYSATE, PERC APPROACH (03/28/17) PERFORMANCE OF BILIARY FILTRATION, MULTIPLE (05/25/17) PERFORMANCE OF URINARY FILTRATION, SINGLE (12/31/16) PLAIN RADIOGRAPHY OF BILE DUCTS USING OTHER CONTRAST (11/29/16) REMOVE VAD RESERVOIR FROM UP EXTREM SUBCU/FASCIA, PERC (12/30/17) RESECTION OF GALLBLADDER, PERCUTANEOUS ENDOSCOPIC APPROACH (11/29/16) Family History: States: No Known Family Hx - Social History Hx Alcohol Use: No Hx Substance Use: No - Immunization History Hx Tetanus Toxoid Vaccination: Yes Hx Influenza Vaccination: Yes Hx Pneumococcal Vaccination: Yes Review Of Systems Except As Marked, All Systems Reviewed And Found Negative. Constitutional: Negative for: Fever, Chills Cardiovascular: Negative for: Chest Pain Respiratory: Negative for: Shortness of Breath Gastrointestinal: Negative for: Nausea, Vomiting Physical Exam - Physical Exam Additional Physical Exam Comments: Constitutional: Tremulous Head: Normocephalic. Atraumatic. Eyes: PERRL. ENT: Moist mucous membranes. Neck: Supple. Cardiovascular: Regular rate. Radial pulse 2+ bilaterally. Chest: No tenderness. Catheter to right chest, bandage intact with some saturated blood. Respiratory: Clear to auscultation bilaterally. GI: Soft. Nontender. Nondistended. Back: No CVA tenderness. Musculoskeletal: No tenderness or swelling of extremities. Skin: No rash. Neurologic: Alert, no focal deficit. ED Course And Treatment - Laboratory Results Result Diagrams: 05/11/18 16:03 05/11/18 16:03 O2 Sat by Pulse Oximetry: 99 Medical Decision Making Medical Decision Making: Plan: --Labs --CXR Results: EKG - NSR [address] elevations CXR HISTORY: ESRD COMPARISON: Chest x-ray performed 02/04/18 TECHNIQUE: Chest, one view. FINDINGS: Right-sided IJ approach dialysis catheter with tips in the SVC/cavoatrial junction. LUNGS: No focal consolidation. Please note that chest x-ray has limited sensitivity for the detection of pulmonary masses. PLEURA: No significant pleural effusion identified. No definite pneumothorax . CARDIOVASCULAR: Heart size appears top normal. No significant atherosclerotic calcification present. OSSEOUS STRUCTURES: No acute osseous abnormality identified. VISUALIZED UPPER ABDOMEN: Unremarkable. OTHER FINDINGS: None. IMPRESSION: Right-sided IJ approach dialysis catheter with tips in the SVC/cavoatrial junction. Dr. Zuleta accepts patient to his service. Disposition - Disposition Disposition: HOSPITALIZED Disposition Time: 16:54 Condition: FAIR Forms: YOOWALK (Honduran) - Clinical Impression Clinical Impression: ESRD (end stage renal disease), Uremia - Scribe Statement The provider has reviewed the documentation as recorded by the [facility] Len Randolph Provider Attestation: All medical record entries made by the Scribe were at my direction and personally dictated by me. I have reviewed the chart and agree that the record accurately reflects my personal performance of the history, physical exam, medical decision making, and the department course for this patient. I have also personally directed, reviewed, and agree with the discharge instructions and disposition.
[2018-05-11 16:11] LABS: BASO # 0.1 K/uL (0.0-0.2); HEMOGLOBIN 10.5 g/dL (11.0-16.0); MEAN PLATELET VOLUME 7.5 fL (7.2-11.7); MONO # 0.5 K/uL (0.0-0.8); NEUT # 12.4 K/uL (1.8-7.0)
[2018-05-11 16:16] LABS: BASO % 0.4 % (0.0-2.0); EOS # 0.2 K/uL (0.0-0.7); LYMPH # 1.3 K/uL (1.0-4.3); LYMPH % 8.9 % (20.0-40.0); MEAN CORPUSCULAR HEMOGLOBIN 30.6 pg (27.0-31.0); MEAN CORPUSCULAR HGB CONC 33.4 g/dL (33.0-37.0); MONO % 3.6 % (0.0-10.0); NEUT % 86.1 % (50.0-75.0); PLATELET COUNT 254 K/uL (130-400); RBC 3.44 Mil/uL (3.80-5.20); RED CELL DISTRIBUTION WIDTH 13.9 % (11.5-14.5)
--- NOTE | 2018-05-11 16:17 | RAD ---
HISTORY: ESRD COMPARISON: Chest x-ray performed 02/04/18 TECHNIQUE: Chest, one view. FINDINGS: Right-sided IJ approach dialysis catheter with tips in the SVC/cavoatrial junction. LUNGS: No focal consolidation. Please note that chest x-ray has limited sensitivity for the detection of pulmonary masses. PLEURA: No significant pleural effusion identified. No definite pneumothorax . CARDIOVASCULAR: Heart size appears top normal. No significant atherosclerotic calcification present. OSSEOUS STRUCTURES: No acute osseous abnormality identified. VISUALIZED UPPER ABDOMEN: Unremarkable. OTHER FINDINGS: None. IMPRESSION: Right-sided IJ approach dialysis catheter with tips in the SVC/cavoatrial junction.
[2018-05-11 16:25] LABS: ALB/GLOB RATIO 1.9 (1.0-2.1); ALBUMIN 4.1 g/dL (3.5-5.0); CALCIUM 8.5 mg/dl (8.6-10.4)
[2018-05-11 16:27] LABS: MEAN CELL VOLUME 91.5 fL (81.0-99.0); WHITE BLOOD COUNT 14.4 K/uL (4.8-10.8)
[2018-05-11 17:02] LABS: LYMPHOCYTE 5 % (20-40); MONOCYTE 1 % (0-10); NEUTROPHIL 94 % (50-75); PLATELET ESTIMATE NORMAL (NORMAL); TOTAL CELLS COUNTED 100
[2018-05-11] MEDS: Oxycodone/Acetaminophen 5/325 mg Tab PO PRN (21:14)
--- NOTE | 2018-05-11 23:20 | CP.PCM.CON ---
History of Present Illness - History of Present Illness History of Present Illness: SURGERY CONSULT NOTE FOR DR. ODELL Reason: malfunctioning Permacath 37F presents to ED after not being able to do dialysis yesterday on Thursday05/10/18. She states while at dialysis yesterday is was noted that the ports were not able to movement as much blood as they needed to. She also stats there was oozing from the permacath initially today which has now resolved. Currently she has no complains, no pain, denies nausea, vomiting, fevers of chill. PMH: Anemia, anxiety, CHF, ESRD PSH: Raina, L AV shunt removal, PD catheter Social: denies tobacca, alcohol and illicit drug Allergies: NKDA Past Patient History - Infectious Disease Hx of Infectious Diseases: None - Past Medical History & Family History Past Medical History?: Yes - Past Social History Smoking Status: Light Smoker < 10 Cigarettes Daily - CARDIAC Hx Cardiac Disorders: Yes Hx Congestive Heart Failure: Yes Hx Hypertension: Yes Hx Peripheral Edema: Yes - PULMONARY Hx Respiratory Disorders: Yes Hx Pneumonia: Yes - NEUROLOGICAL Hx Neurological Disorder: No - HEENT Hx HEENT Problems: Yes Other/Comment: wears glasses - RENAL Hx Chronic Kidney Disease: Yes Date of Last Dialysis Treatment: 05/05/18 Hx Kidney Stones: Yes (Left) Hx Renal Failure: Yes - ENDOCRINE/METABOLIC Hx Endocrine Disorders: No - HEMATOLOGICAL/ONCOLOGICAL Hx Anemia: Yes - INTEGUMENTARY Hx Dermatological Problems: Yes Other/Comment: SCARRING TO LEFT UPPER ARM DUE TO PLACEMENT OF SHUNT. NF.3X HAD SURGERY. - MUSCULOSKELETAL/RHEUMATOLOGICAL Hx Falls: No - GASTROINTESTINAL Hx Gastrointestinal Disorders: Yes Hx Gall Bladder Disease: Yes (CHOLECYSTECTOMY) Hx Pancreatitis: Yes (02-06-18) - GENITOURINARY/GYNECOLOGICAL Hx Genitourinary Disorders: Yes - PSYCHIATRIC Hx Anxiety: Yes Hx Depression: Yes Hx Substance Use: No - SURGICAL HISTORY Hx Surgeries: Yes Hx Cholecystectomy: Yes - ANESTHESIA Hx Anesthesia: Yes Hx Anesthesia Reactions: No Hx Malignant Hyperthermia: No Has any member of the family had a problem w/ anesthesia?: No Meds Allergies/Adverse Reactions: Allergies Allergy/AdvReac Type Severity Reaction Status Date / Time No Known Allergies Allergy Verified 05/11/18 14:36 - Medications Medications: Current Medications Alprazolam (Xanax) 0.5 mg PO BID PRN PRN Reason: Anxiety Amlodipine Besylate (Norvasc) 10 mg PO DAILY [facility] Cinacalcet (Sensipar) 30 mg PO DAILY [facility] Heparin Sodium (Porcine) (Heparin) 5,000 units SC Q8 [facility] Last Admin: 05/11/18 22:27 Dose: 5,000 units Labetalol HCl (Normodyne) 300 mg PO BID [facility] Ondansetron HCl (Zofran Inj) 4 mg IVP Q4H PRN PRN Reason: Nausea/Vomiting Last Admin: 05/11/18 22:28 Dose: 4 mg Oxycodone/Acetaminophen (Percocet 5/325 Mg Tab) 1 tab PO Q4H PRN PRN Reason: Pain, moderate (4-7) Stop: 05/14/18 20:15 Last Admin: 05/11/18 21:14 Dose: 1 tab Zolpidem Tartrate (Ambien) 5 mg PO HS PRN PRN Reason: Insomnia Physical Exam - Constitutional Appears: Non-toxic, No Acute Distress - Respiratory Exam Respiratory Exam: Clear to Auscultation Bilateral, NORMAL BREATHING PATTERN Additional comments: permacath in place - Cardiovascular Exam Cardiovascular Exam: REGULAR RHYTHM, +S1, +S2 - GI/Abdominal Exam GI & Abdominal Exam: Soft. absent: Distended, Firm, Guarding, Rebound, Rigid, Tenderness - Neurological Exam Neurological exam: Alert, Oriented x3 Results - Vital Signs Recent Vital Signs: Last Vital Signs Temp 97.6 F 05/11/18 18:21 Pulse 100 H 05/11/18 18:21 Resp 20 05/11/18 18:21 BP 145/84 05/11/18 18:21 Pulse Ox 99 05/11/18 18:21 - Labs Result Diagrams: 05/11/18 16:03 05/11/18 16:03 Labs: Laboratory Results - last 24 hr 05/11/18 05/11/18 16:03 16:03 WBC 14.4 H D RBC 3.44 L Hgb 10.5 L Hct 31.5 L MCV 91.5 D MCH 30.6 MCHC 33.4 RDW 13.9 Plt Count 254 MPV 7.5 Neut % (Auto) 86.1 H Lymph % (Auto) 8.[address] [place] % (Auto) 3.6 Eos % (Auto) 1.0 Baso % (Auto) 0.4 Neut # (Auto) 12.4 H Lymph # (Auto) 1.3 [place] # (Auto) 0.5 Eos # (Auto) 0.2 Baso # (Auto) 0.1 Neutrophils % (Manual) 94 H Lymphocytes % (Manual) 5 L Monocytes % (Manual) 1 Platelet Estimate Normal RBC Morphology Normal Sodium 137 Potassium 3.7 Chloride 103 Carbon Dioxide 22 Anion Gap 15 BUN 45 H Creatinine 4.5 H Est GFR ( Amer) 13 Est GFR (Non-Af Amer) 11 Random Glucose 130 H Calcium 8.5 L Phosphorus 5.1 H Magnesium 1.9 Total Bilirubin 0.3 AST 15 ALT 15 Alkaline Phosphatase 79 NT-Pro-B Natriuret Pep 97386 H Total Protein 6.3 Albumin 4.1 Globulin 2.2 Albumin/Globulin Ratio 1.9 Assessment & Plan - Assessment and Plan (Free Text) Assessment: 37F with malfunctioning permacath Plan: - continue to flush - reevaluate for possible replacement of declogging does not work Further recs discuss with Dr. Ancelmo Armenta, PGY3
[2018-05-12] MEDS: Oxycodone/Acetaminophen 5/325 mg Tab PO PRN ×4 (05:40→21:20)
--- NOTE | 2018-05-12 07:15 | CP.PCM.PN ---
Subjective - Date & Time of Evaluation Date of Evaluation: 05/12/18 Time of Evaluation: 11:58 - Subjective Subjective: Medicine Note for Dr. Zuleta's Service This is a 37 year old female with PMHx of hypertension, ESRD on HD (MWF, permacath, [facility]), and Anemia of Chronic Disease who was admitted on 05/11/17 for a malfunctioning permacath. Patient reported missing dialysis on Thursday due to a transportation issue and did not have dialysis this past Thursday due to the permacath being nonfunctional. Patient admitted to oozing and pain at the permacath site, which has resolved. Today will use cathflo and attempt to undergo a dialysis session. Patient was seen by Dr. Raines as outpatient for clearance for AVF. ROS unremarkable. PMHx: As noted as above PSHx: All: NKDA SHx: Denied alcohol, tobacco, and illicit drug use FHX: Unremarkable Objective - Vital Signs/Intake and Output Vital Signs (last 24 hours): Temp Pulse Resp BP Pulse Ox 98.5 F 100 H 20 165/100 H 99 05/12/18 05:30 05/12/18 05:30 05/12/18 05:30 05/12/18 05:30 05/12/18 05:30 Intake and Output: 05/12/18 05/12/18 06:59 18:59 Intake Total 600 Balance 600 - Medications Medications: Current Medications Alprazolam (Xanax) 0.5 mg PO BID PRN PRN Reason: Anxiety Amlodipine Besylate (Norvasc) 10 mg PO DAILY [facility] Cinacalcet (Sensipar) 30 mg PO DAILY [facility] Heparin Sodium (Porcine) (Heparin) 5,000 units SC Q8 [facility] Last Admin: 05/12/18 05:34 Dose: 5,000 units Labetalol HCl (Normodyne) 300 mg PO BID [facility] Ondansetron HCl (Zofran Inj) 4 mg IVP Q4H PRN PRN Reason: Nausea/Vomiting Last Admin: 05/11/18 22:28 Dose: 4 mg Oxycodone/Acetaminophen (Percocet 5/325 Mg Tab) 1 tab PO Q4H PRN PRN Reason: Pain, moderate (4-7) Stop: 05/14/18 20:15 Last Admin: 05/12/18 05:40 Dose: 1 tab Zolpidem Tartrate (Ambien) 5 mg PO HS PRN PRN Reason: Insomnia Last Admin: 05/12/18 00:30 Dose: 5 mg - Labs Labs: 05/11/18 16:03 05/11/18 16:03 - Constitutional Appears: No Acute Distress - Head Exam Head Exam: NORMAL INSPECTION, NORMOCEPHALIC - Eye Exam Eye Exam: EOMI, Normal appearance, PERRL Pupil Exam: NORMAL ACCOMODATION - ENT Exam ENT Exam: Mucous Membranes Moist - Respiratory Exam Respiratory Exam: Clear to Ausculation Bilateral, NORMAL BREATHING PATTERN - Cardiovascular Exam Cardiovascular Exam: +S1, +S2 Additional comments: right permacath noted no signs of erythema, edema, or signs of cellulitis - GI/Abdominal Exam GI & Abdominal Exam: Soft, Normal Bowel Sounds. absent: Distended, Tenderness - Extremities Exam Extremities Exam: Normal Inspection. absent: Pedal Edema - Neurological Exam Neurological Exam: Alert, Awake, Oriented x3 - Psychiatric Exam Psychiatric exam: Normal Affect, Normal Mood - Skin Skin Exam: Dry, Intact, Normal Color, Warm Assessment and Plan - Assessment and Plan (Free Text) Plan: ESRD on HD MWF, R Permacath, Plan for AVF during this admission - Nephrology - Dr. Jordan consulted - General Surgery - Dr. Burgos consulted for malfunctioning permacath and AVF placement - Cardiology - Dr. Raines consulted for clearance for AVF Management: - Continue Sensipar - Patient had exercise stress test on 04/08/18 which was negative for any ischemia. Spoke to Dr. Raines who stated the patient is low risk for any cardiovascular event for AVF under general anesthesia. Please refer to the Cardiology consult note. Uncontrolled Hypertension - Resumed home medications: Norvasc 10mg daily, hydralazine 100mg PO BID, Labetalol 300mg PO BID, Clonidine 0.3mg PO BID Prophylactic Measures - GI PPX: not indicated - DVT PPX: Heparin 5000 Q8H, SCDs Disposition: Will need to speak to surgery for date of AVF placement and plan accordingly. Case discussed with Verito Forbes DO, PGY2
[2018-05-12] MEDS ORDERED: Home Med 1 UNIT (Hydralazine Hcl [Hydralazine Hcl] 100 MG) PO PRN (07:18)
[2018-05-12] MEDS: Labetalol Hydrochloride 300 mg Tab PO SCH ×2 (09:47→22:40)
[2018-05-12] MEDS ORDERED: Labetalol Hydrochloride 300 mg Tab PO SCH (10:00)
--- NOTE | 2018-05-12 10:51 | CP.PCM.PN ---
Subjective - Date & Time of Evaluation Date of Evaluation: 05/12/18 Time of Evaluation: 10:39 - Subjective Subjective: Vascular Surgery Progress Note for Dr. Burgos 37F seen and evaluated at bedside this morning. No acute events overnight. No complaints this morning. Patient tolerating diet. Denies f/c, n/v/d, SOB, CP, headaches, or dizziness. Objective - Vital Signs/Intake and Output Vital Signs (last 24 hours): Temp Pulse Resp BP Pulse Ox 98.1 F 88 20 161/92 H 100 05/12/18 07:48 05/12/18 07:48 05/12/18 07:48 05/12/18 07:48 05/12/18 07:48 Intake and Output: 05/12/18 05/12/18 06:59 18:59 Intake Total 600 Balance 600 - Medications Medications: Current Medications Alprazolam (Xanax) 0.5 mg PO BID PRN PRN Reason: Anxiety Amlodipine Besylate (Norvasc) 10 mg PO DAILY [facility] Last Admin: 05/12/18 09:38 Dose: 10 mg Cinacalcet (Sensipar) 30 mg PO DAILY [facility] Last Admin: 05/12/18 10:38 Dose: 30 mg Clonidine HCl (Catapres) 0.3 mg PO BID [facility] Last Admin: 05/12/18 09:51 Dose: Not Given Heparin Sodium (Porcine) (Heparin) 5,000 units SC Q8 [facility] Last Admin: 05/12/18 05:34 Dose: 5,000 units Hydralazine HCl (Apresoline) 100 mg PO BID [facility] Last Admin: 05/12/18 09:51 Dose: Not Given Labetalol HCl (Normodyne) 300 mg PO BID [facility] Last Admin: 05/12/18 09:47 Dose: 300 mg Ondansetron HCl (Zofran Inj) 4 mg IVP Q4H PRN PRN Reason: Nausea/Vomiting Last Admin: 05/11/18 22:28 Dose: 4 mg Oxycodone/Acetaminophen (Percocet 5/325 Mg Tab) 1 tab PO Q4H PRN PRN Reason: Pain, moderate (4-7) Stop: 05/14/18 20:15 Last Admin: 05/12/18 09:52 Dose: 1 tab Zolpidem Tartrate (Ambien) 5 mg PO HS PRN PRN Reason: Insomnia Last Admin: 05/12/18 00:30 Dose: 5 mg - Labs Labs: 05/11/18 16:03 05/11/18 16:03 - Constitutional Appears: Well, Non-toxic, No Acute Distress - Head Exam Head Exam: ATRAUMATIC, NORMAL INSPECTION, NORMOCEPHALIC - Eye Exam Eye Exam: EOMI - ENT Exam ENT Exam: Mucous Membranes Moist - Respiratory Exam Respiratory Exam: absent: Respiratory Distress - GI/Abdominal Exam GI & Abdominal Exam: Soft, Normal Bowel Sounds. absent: Tenderness - Neurological Exam Neurological Exam: Alert, Awake - Psychiatric Exam Psychiatric exam: Normal Affect, Normal Mood Assessment and Plan - Assessment and Plan (Free Text) Assessment: 37F w/ malfunctioning permacath - gets dialysis MWF Plan: Permacath on Thursday, possible AV Fistula on Thursday as well Renal Diet AM labs Further recommendations per Dr. Loretta Byrne PGY1
[2018-05-12 12:56] LABS: BASO # 0.1 K/uL (0.0-0.2); BASO % 0.5 % (0.0-2.0); EOS # 0.1 K/uL (0.0-0.7); EOS % 1.1 % (0.0-4.0); LYMPH # 1.4 K/uL (1.0-4.3); LYMPH % 12.5 % (20.0-40.0); MEAN CELL VOLUME 92.7 fL (81.0-99.0); MEAN CORPUSCULAR HEMOGLOBIN 32.2 pg (27.0-31.0); MEAN CORPUSCULAR HGB CONC 34.7 g/dL (33.0-37.0); MEAN PLATELET VOLUME 7.6 fL (7.2-11.7); MONO # 0.4 K/uL (0.0-0.8); MONO % 4.1 % (0.0-10.0); NEUT # 8.9 K/uL (1.8-7.0); NEUT % 81.8 % (50.0-75.0); RBC 3.42 Mil/uL (3.80-5.20); RED CELL DISTRIBUTION WIDTH 14.4 % (11.5-14.5); WHITE BLOOD COUNT 10.9 K/uL (4.8-10.8)
--- NOTE | 2018-05-12 13:33 | CP.PCM.CON ---
History of Present Illness - History of Present Illness History of Present Illness: 37 yo female with HTN, ESRD, poor compliance with dialysis, failed PD, suspect drug seeking. Presents having missed dialysis x 2, also dialysis catheter not working well on last treatment. Labs reviewed. Pt is in no acute distress. Notes some bleeding around dialysis catheter. Getting treatment in unit at present, needed alteplace for catheter function. No fever or chills. Noted wbc elevation. Review of Systems - Constitutional Constitutional: absent: Chills, Fever - EENT Eyes: absent: Floaters, Itchy Eyes Nose/Mouth/Throat: absent: Nasal Congestion, Nasal Discharge - Respiratory Respiratory: absent: Cough, Dyspnea - Gastrointestinal Gastrointestinal: absent: Abdominal Pain, Cramping - Genitourinary Genitourinary: absent: Change in Urinary Stream, Difficulty Urinating - Neurological Neurological: absent: Confusion, Focal Weakness Past Patient History - Infectious Disease Hx of Infectious Diseases: None - Past Medical History & Family History Past Medical History?: Yes - Past Social History Smoking Status: Light Smoker < 10 Cigarettes Daily - CARDIAC Hx Cardiac Disorders: Yes Hx Congestive Heart Failure: Yes Hx Hypertension: Yes Hx Peripheral Edema: Yes - PULMONARY Hx Respiratory Disorders: Yes Hx Pneumonia: Yes - NEUROLOGICAL Hx Neurological Disorder: No - HEENT Hx HEENT Problems: Yes Other/Comment: wears glasses - RENAL Hx Chronic Kidney Disease: Yes Date of Last Dialysis Treatment: 05/05/18 Hx Kidney Stones: Yes (Left) Hx Renal Failure: Yes - ENDOCRINE/METABOLIC Hx Endocrine Disorders: No - HEMATOLOGICAL/ONCOLOGICAL Hx Anemia: Yes - INTEGUMENTARY Hx Dermatological Problems: Yes Other/Comment: SCARRING TO LEFT UPPER ARM DUE TO PLACEMENT OF SHUNT. NF.3X HAD SURGERY. - MUSCULOSKELETAL/RHEUMATOLOGICAL Hx Falls: No - GASTROINTESTINAL Hx Gastrointestinal Disorders: Yes Hx Gall Bladder Disease: Yes (CHOLECYSTECTOMY) Hx Pancreatitis: Yes (02-06-18) - GENITOURINARY/GYNECOLOGICAL Hx Genitourinary Disorders: Yes - PSYCHIATRIC Hx Anxiety: Yes Hx Depression: Yes Hx Substance Use: No - SURGICAL HISTORY Hx Surgeries: Yes Hx Cholecystectomy: Yes - ANESTHESIA Hx Anesthesia: Yes Hx Anesthesia Reactions: No Hx Malignant Hyperthermia: No Has any member of the family had a problem w/ anesthesia?: No Meds Allergies/Adverse Reactions: Allergies Allergy/AdvReac Type Severity Reaction Status Date / Time No Known Allergies Allergy Verified 05/11/18 14:36 - Medications Medications: Current Medications Alprazolam (Xanax) 0.5 mg PO BID PRN PRN Reason: Anxiety Amlodipine Besylate (Norvasc) 10 mg PO DAILY [facility] Last Admin: 05/12/18 09:38 Dose: 10 mg Cinacalcet (Sensipar) 30 mg PO DAILY [facility] Last Admin: 05/12/18 10:38 Dose: 30 mg Clonidine HCl (Catapres) 0.3 mg PO BID [facility] Last Admin: 05/12/18 09:51 Dose: Not Given Heparin Sodium (Porcine) (Heparin) 5,000 units SC Q8 [facility] Last Admin: 05/12/18 13:01 Dose: Not Given Hydralazine HCl (Apresoline) 100 mg PO BID [facility] Last Admin: 05/12/18 09:51 Dose: Not Given Labetalol HCl (Normodyne) 300 mg PO BID [facility] Last Admin: 05/12/18 09:47 Dose: 300 mg Ondansetron HCl (Zofran Inj) 4 mg IVP Q4H PRN PRN Reason: Nausea/Vomiting Last Admin: 05/11/18 22:28 Dose: 4 mg Oxycodone/Acetaminophen (Percocet 5/325 Mg Tab) 1 tab PO Q4H PRN PRN Reason: Pain, moderate (4-7) Stop: 05/14/18 20:15 Last Admin: 05/12/18 09:52 Dose: 1 tab Zolpidem Tartrate (Ambien) 5 mg PO HS PRN PRN Reason: Insomnia Last Admin: 05/12/18 00:30 Dose: 5 mg Physical Exam - Constitutional Appears: Non-toxic, No Acute Distress - Head Exam Head Exam: ATRAUMATIC, NORMAL INSPECTION - Eye Exam Eye Exam: EOMI - ENT Exam ENT Exam: Mucous Membranes Moist - Neck Exam Neck exam: Positive for: Full Rom. Negative for: Lymphadenopathy - Respiratory Exam Respiratory Exam: NORMAL BREATHING PATTERN. absent: Accessory Muscle Use - Cardiovascular Exam Cardiovascular Exam: REGULAR RHYTHM. absent: Rubs - GI/Abdominal Exam GI & Abdominal Exam: Soft. absent: Tenderness - Extremities Exam Extremities exam: Negative for: pedal edema - Neurological Exam Neurological exam: Alert, Oriented x3 - Psychiatric Exam Psychiatric exam: Normal Affect Results - Vital Signs Recent Vital Signs: Last Vital Signs Temp 98.1 F 05/12/18 07:48 Pulse 88 05/12/18 07:48 Resp 20 05/12/18 07:48 BP 161/92 H 05/12/18 07:48 Pulse Ox 100 05/12/18 07:48 - Labs Result Diagrams: 05/12/18 13:11 05/11/18 16:03 Labs: Laboratory Results - last 24 hr 05/11/18 05/11/18 05/12/18 16:03 16:03 13:11 WBC 14.4 H D 10.9 H RBC 3.44 L 3.42 L Hgb 10.5 L 11.0 Hct 31.5 L 31.7 L MCV 91.5 D 92.7 MCH 30.6 32.2 H MCHC 33.4 34.7 RDW 13.9 14.4 Plt Count 254 279 MPV 7.5 7.6 Neut % (Auto) 86.1 H 81.8 H Lymph % (Auto) 8.9 L 12.5 L [place] % (Auto) 3.6 4.1 Eos % (Auto) 1.0 1.1 Baso % (Auto) 0.4 0.5 Neut # (Auto) 12.4 H 8.9 H Lymph # (Auto) 1.3 1.4 [place] # (Auto) 0.5 0.4 Eos # (Auto) 0.2 0.1 Baso # (Auto) 0.1 0.1 Neutrophils % (Manual) 94 H Lymphocytes % (Manual) 5 L Monocytes % (Manual) 1 Platelet Estimate Normal RBC Morphology Normal Sodium 137 Potassium 3.7 Chloride 103 Carbon Dioxide 22 Anion Gap 15 BUN 45 H Creatinine 4.5 H Est GFR ( Amer) 13 Est GFR (Non-Af Amer) 11 Random Glucose 130 H Calcium 8.5 L Phosphorus 5.1 H Magnesium 1.9 Total Bilirubin 0.3 AST 15 ALT 15 Alkaline Phosphatase 79 NT-Pro-B Natriuret Pep 49263 H Total Protein 6.3 Albumin 4.1 Globulin 2.2 Albumin/Globulin Ratio 1.9 Assessment & Plan - Assessment and Plan (Free Text) Assessment: HD today check blood cultured, due to elevated wbc Vascular surgery for TRACEY placement
[2018-05-12 14:52] LABS: ALB/GLOB RATIO 1.7 (1.0-2.1); ALBUMIN 4.1 g/dL (3.5-5.0); CALCIUM 8.6 mg/dl (8.6-10.4)
--- NOTE | 2018-05-12 18:32 | CARD ---
APPROVED REPORT Date of service: 05/11/2018 EKG Measurement Heart [id number] <Conclusion> Normal sinus rhythm Nonspecific T wave abnormality Prolonged QT Abnormal ECG
--- NOTE | 2018-05-12 20:01 | CP.PCM.CON ---
History of Present Illness - History of Present Illness History of Present Illness: Reason for Consultation: Pre Op Cardiac Risk assessment Patient is a 37 yo F with PMH of ESRD on HD MWF, diastolic CHF, HTN, admitted for Left fore arm AV fistula surgery Patient denies chest pain and dyspnea PMD: [place] PMH: as above Surg: Cholecystectomy All: NKDA SH: Denied tobacco, EtOH, and illicit drug use FHx: Mother, at 49 from DM; Father, COPD Medications: Sensipar 30 mg daily, Ambien 10 mg HS, Percocet 5/325 mg prn, Xanax 0.5 mg prn, Norvasc 10 mg daily, Hydralazine 100 mg BID, Clondine 0.3 mg BID, Labetalol 300 mg BID Present on Admission - Present on Admission Any Indicators Present on Admission: No Review of Systems - Review of Systems All systems: reviewed and no additional remarkable complaints except (12 point ROS reviewed and is negative other than what is stated in HPI.) Physical Exam - Constitutional Appears: In Acute Distress - Head Exam Head Exam: NORMAL INSPECTION - Eye Exam Eye Exam: EOMI, Normal appearance, PERRL - ENT Exam ENT Exam: Mucous Membranes Moist - Neck Exam Neck exam: Positive for: Normal Inspection - Respiratory Exam Respiratory Exam: Clear to Auscultation Bilateral. absent: Rales, Rhonchi, Wheezes - Cardiovascular Exam Cardiovascular Exam: RRR, +S1, +S2. absent: Diastolic murmur, Gallop, Rubs, Systolic Murmur - GI/Abdominal Exam GI & Abdominal Exam: Soft. absent: Distended, Guarding, Rebound, Tenderness - Extremities Exam Extremities exam: Positive for: normal inspection - Back Exam Back exam: NORMAL INSPECTION - Neurological Exam Neurological exam: Alert, CN II-XII Intact, Oriented x3 - Psychiatric Exam Psychiatric exam: Normal Affect, Normal Mood - Skin Skin Exam: Dry, Intact, Normal Color, Warm Assessment & Plan - Assessment and Plan (Free Text) Assessment: 37 yo F with PMH of ESRD on HD MWF, diastolic CHF, HTN, Recent Stress test: Normal ECHO: Normal EF As per ACC/AHA guidelines this patient assessed as low to moderate cardiac risk for AV fistula surgery under general anaesthesia If benefit outweighs the risks please proceed with the surgery Thank you. Will follow Past Patient History - Infectious Disease Hx of Infectious Diseases: None - Past Medical History & Family History Past Medical History?: Yes - Past Social History Smoking Status: Light Smoker < 10 Cigarettes Daily - CARDIAC Hx Cardiac Disorders: Yes Hx Congestive Heart Failure: Yes Hx Hypertension: Yes Hx Peripheral Edema: Yes - PULMONARY Hx Respiratory Disorders: Yes Hx Pneumonia: Yes - NEUROLOGICAL Hx Neurological Disorder: No - HEENT Hx HEENT Problems: Yes Other/Comment: wears glasses - RENAL Hx Chronic Kidney Disease: Yes Date of Last Dialysis Treatment: 05/05/18 Hx Kidney Stones: Yes (Left) Hx Renal Failure: Yes - ENDOCRINE/METABOLIC Hx Endocrine Disorders: No - HEMATOLOGICAL/ONCOLOGICAL Hx Anemia: Yes - INTEGUMENTARY Hx Dermatological Problems: Yes Other/Comment: SCARRING TO LEFT UPPER ARM DUE TO PLACEMENT OF SHUNT. NF.3X HAD SURGERY. - MUSCULOSKELETAL/RHEUMATOLOGICAL Hx Falls: No - GASTROINTESTINAL Hx Gastrointestinal Disorders: Yes Hx Gall Bladder Disease: Yes (CHOLECYSTECTOMY) Hx Pancreatitis: Yes (02-06-18) - GENITOURINARY/GYNECOLOGICAL Hx Genitourinary Disorders: Yes - PSYCHIATRIC Hx Anxiety: Yes Hx Depression: Yes Hx Substance Use: No - SURGICAL HISTORY Hx Surgeries: Yes Hx Cholecystectomy: Yes - ANESTHESIA Hx Anesthesia: Yes Hx Anesthesia Reactions: No Hx Malignant Hyperthermia: No Has any member of the family had a problem w/ anesthesia?: No Meds Allergies/Adverse Reactions: Allergies Allergy/AdvReac Type Severity Reaction Status Date / Time No Known Allergies Allergy Verified 05/11/18 14:36 - Medications Medications: Current Medications Alprazolam (Xanax) 0.5 mg PO BID PRN PRN Reason: Anxiety Amlodipine Besylate (Norvasc) 10 mg PO DAILY [facility] Last Admin: 05/12/18 09:38 Dose: 10 mg Cinacalcet (Sensipar) 30 mg PO DAILY [facility] Last Admin: 05/12/18 10:38 Dose: 30 mg Clonidine HCl (Catapres) 0.3 mg PO BID [facility] Last Admin: 05/12/18 14:53 Dose: 0.3 mg Heparin Sodium (Porcine) (Heparin) 5,000 units SC Q8 [facility] Last Admin: 05/12/18 13:01 Dose: Not Given Heparin Sodium (Porcine) (Heparin) 3,700 units IVP MWF [facility] Stop: 05/18/18 09:01 Hydralazine HCl (Apresoline) 100 mg PO BID [facility] Last Admin: 05/12/18 14:53 Dose: 100 mg Labetalol HCl (Normodyne) 300 mg PO BID [facility] Last Admin: 05/12/18 09:47 Dose: 300 mg Ondansetron HCl (Zofran Inj) 4 mg IVP Q4H PRN PRN Reason: Nausea/Vomiting Last Admin: 05/11/18 22:28 Dose: 4 mg Oxycodone/Acetaminophen (Percocet 5/325 Mg Tab) 1 tab PO Q4H PRN PRN Reason: Pain, moderate (4-7) Stop: 05/14/18 20:15 Last Admin: 05/12/18 16:20 Dose: 1 tab Zolpidem Tartrate (Ambien) 5 mg PO HS PRN PRN Reason: Insomnia Last Admin: 05/12/18 00:30 Dose: 5 mg Results - Vital Signs Recent Vital Signs: Last Vital Signs Temp 97.4 F L 05/12/18 16:35 Pulse 81 05/12/18 16:35 Resp 20 05/12/18 16:35 BP 110/72 05/12/18 16:35 Pulse Ox 98 05/12/18 16:35 - Labs Result Diagrams: 05/12/18 13:11 05/12/18 14:18 Labs: Laboratory Results - last 24 hr 05/12/18 05/12/18 13:11 14:18 WBC 10.9 H RBC 3.42 L Hgb 11.0 Hct 31.7 L MCV 92.7 MCH 32.2 H MCHC 34.7 RDW 14.4 Plt Count 279 MPV 7.6 Neut % (Auto) 81.8 H Lymph % (Auto) 12.5 L Rankin % (Auto) 4.1 Eos % (Auto) 1.1 Baso % (Auto) 0.5 Neut # (Auto) 8.9 H Lymph # (Auto) 1.4 Rankin # (Auto) 0.4 Eos # (Auto) 0.1 Baso # (Auto) 0.1 Sodium 136 Potassium 3.4 L Chloride 103 Carbon Dioxide 23 Anion Gap 15 BUN 37 H Creatinine 4.0 H Est GFR ( Amer) 15 Est GFR (Non-Af Amer) 13 Random Glucose 102 D Calcium 8.6 Total Bilirubin 0.4 AST 17 ALT 18 Alkaline Phosphatase 86 Total Protein 6.5 Albumin 4.1 Globulin 2.4 Albumin/Globulin Ratio 1.7
--- NOTE | 2018-05-13 06:37 | HP ---
HISTORY OF PRESENT ILLNESS: A 37-year-old female with a chief complaint of weakness, fatigue, and tiredness. The patient is on dialysis. . The patient is not feeling well. Came to the ER with poor access, advised admission. PAST MEDICAL HISTORY: Acute chronic renal failure, hypertension, back pain. PHYSICAL EXAMINATION: GENERAL: The patient is awake, alert, and oriented. VITAL SIGNS: Temperature 98, pulse 90. HEENT: Within normal limits. NECK: Supple. CHEST: Symmetrical. HEART: Regular. ABDOMEN: Soft. EXTREMITIES: No edema. ASSESSMENT AND PLAN: The patient suffers from chronic renal failure, poor intravenous access, noncompliance. The patient is placed on bedrest. Supportive care. Joseph Zuleta MD
--- NOTE | 2018-05-13 07:03 | CP.PCM.PN ---
Subjective - Date & Time of Evaluation Date of Evaluation: 05/13/18 Time of Evaluation: 07:03 - Subjective Subjective: Progress note for Dr. Zuleta Patient was seen and examined at bedside in no acute distress. Patient reports feeling well and has no complaints. She denies having pain at permacath site. Patient denies chest pain, palpations, dyspnea, cough, nausea, vomiting, abdominal pain, diarrhea, constipation. Objective - Vital Signs/Intake and Output Vital Signs (last 24 hours): Temp Pulse Resp BP Pulse Ox 98.2 F 67 20 110/60 98 05/13/18 00:00 05/13/18 05:30 05/13/18 05:30 05/13/18 05:30 05/13/18 05:30 Intake and Output: 05/13/18 05/13/18 06:59 18:59 Intake Total 700 Balance 700 - Medications Medications: Current Medications Alprazolam (Xanax) 0.5 mg PO BID PRN PRN Reason: Anxiety Amlodipine Besylate (Norvasc) 10 mg PO DAILY [facility] Last Admin: 05/12/18 09:38 Dose: 10 mg Cinacalcet (Sensipar) 30 mg PO DAILY [facility] Last Admin: 05/12/18 10:38 Dose: 30 mg Clonidine HCl (Catapres) 0.3 mg PO BID [facility] Last Admin: 05/12/18 22:40 Dose: 0.3 mg Heparin Sodium (Porcine) (Heparin) 5,000 units SC Q8 [facility] Last Admin: 05/13/18 05:30 Dose: 5,000 units Heparin Sodium (Porcine) (Heparin) 3,700 units IVP [facility] Stop: 05/18/18 09:01 Hydralazine HCl (Apresoline) 100 mg PO BID [facility] Last Admin: 05/12/18 22:43 Dose: 100 mg Labetalol HCl (Normodyne) 300 mg PO BID [facility] Last Admin: 05/12/18 22:40 Dose: 300 mg Ondansetron HCl (Zofran Inj) 4 mg IVP Q4H PRN PRN Reason: Nausea/Vomiting Last Admin: 05/11/18 22:28 Dose: 4 mg Oxycodone/Acetaminophen (Percocet 5/325 Mg Tab) 1 tab PO Q4H PRN PRN Reason: Pain, moderate (4-7) Stop: 05/14/18 20:15 Last Admin: 05/12/18 21:20 Dose: 1 tab Zolpidem Tartrate (Ambien) 5 mg PO HS PRN PRN Reason: Insomnia Last Admin: 05/12/18 22:42 Dose: 5 mg - Labs Labs: 05/12/18 13:11 05/12/18 14:18 - Constitutional Appears: No Acute Distress - Head Exam Head Exam: ATRAUMATIC, NORMAL INSPECTION - Eye Exam Eye Exam: EOMI, Normal appearance - ENT Exam ENT Exam: Mucous Membranes Moist - Respiratory Exam Respiratory Exam: Clear to Ausculation Bilateral, NORMAL BREATHING PATTERN. absent: Rhonchi, Wheezes, Respiratory Distress - Cardiovascular Exam Cardiovascular Exam: REGULAR RHYTHM, +S1, +S2 Additional comments: Right chest permacath; dressing c/d/i - GI/Abdominal Exam GI & Abdominal Exam: Soft, Normal Bowel Sounds. absent: Distended, Firm, Tenderness - Extremities Exam Extremities Exam: Normal Inspection. absent: Pedal Edema, Tenderness - Neurological Exam Neurological Exam: Alert, Awake, Oriented x3 - Skin Skin Exam: Dry, Normal Color, Warm Assessment and Plan - Assessment and Plan (Free Text) Plan: ESRD on HD - MWF, R Permacath, Plan for AVF tomorrow with Dr. Burgos - Patient admitted for malfunctioning permacath; cath is now functioning. - Nephrology - Dr. Jordan consulted - Surgery - Dr. Burgos consulted for malfunctioning permacath and AVF placement - Cardiology - Dr. Raines consulted for clearance for AVF Management: - Continue Sensipar - Patient had exercise stress test on 04/08/18 which was negative for any ischemia. Spoke to Dr. Raines who stated the patient is low risk for any cardiovascular event for AVF under general anesthesia. Please refer to the Cardiology consult note. - Patient is scheduled for vein mapping and AVF placement on 05/14/18 per surgery team. Uncontrolled Hypertension - Resumed home medications: Norvasc 10mg daily, hydralazine 100mg PO BID, Labetalol 300mg PO BID, Clonidine 0.3mg PO BID Prophylactic Measures - GI PPX: not indicated - DVT PPX: Heparin 5000 Q8H, SCDs Disposition: Plan for AVF placement with Dr. Burgos tomorrow, 05/14/18. Case discussed with Dr. Zuleta,
--- NOTE | 2018-05-13 07:28 | CP.PCM.PN ---
Subjective - Date & Time of Evaluation Date of Evaluation: 05/13/18 Time of Evaluation: 07:24 - Subjective Subjective: Vascular Surgery Progress Note for Dr. Burgos 37F seen and evaluated at bedside this morning. No acute events overnight. No complaints this morning. Tolerating diet. Patient was able to get dialysis through permacath after the cathflow. Denies f/c, n/v/d, SOB, CP, or urinary symptoms. Objective - Vital Signs/Intake and Output Vital Signs (last 24 hours): Temp Pulse Resp BP Pulse Ox 98.2 F 67 20 110/60 98 05/13/18 00:00 05/13/18 05:30 05/13/18 05:30 05/13/18 05:30 05/13/18 05:30 Intake and Output: 05/13/18 05/13/18 06:59 18:59 Intake Total 700 Balance 700 - Medications Medications: Current Medications Alprazolam (Xanax) 0.5 mg PO BID PRN PRN Reason: Anxiety Amlodipine Besylate (Norvasc) 10 mg PO DAILY [facility] Last Admin: 05/12/18 09:38 Dose: 10 mg Cinacalcet (Sensipar) 30 mg PO DAILY [facility] Last Admin: 05/12/18 10:38 Dose: 30 mg Clonidine HCl (Catapres) 0.3 mg PO BID [facility] Last Admin: 05/12/18 22:40 Dose: 0.3 mg Heparin Sodium (Porcine) (Heparin) 5,000 units SC Q8 [facility] Last Admin: 05/13/18 05:30 Dose: 5,000 units Heparin Sodium (Porcine) (Heparin) 3,700 units IVP MWF [facility] Stop: 05/18/18 09:01 Hydralazine HCl (Apresoline) 100 mg PO BID [facility] Last Admin: 05/12/18 22:43 Dose: 100 mg Labetalol HCl (Normodyne) 300 mg PO BID [facility] Last Admin: 05/12/18 22:40 Dose: 300 mg Ondansetron HCl (Zofran Inj) 4 mg IVP Q4H PRN PRN Reason: Nausea/Vomiting Last Admin: 05/11/18 22:28 Dose: 4 mg Oxycodone/Acetaminophen (Percocet 5/325 Mg Tab) 1 tab PO Q4H PRN PRN Reason: Pain, moderate (4-7) Stop: 05/14/18 20:15 Last Admin: 05/12/18 21:20 Dose: 1 tab Zolpidem Tartrate (Ambien) 5 mg PO HS PRN PRN Reason: Insomnia Last Admin: 05/12/18 22:42 Dose: 5 mg - Labs Labs: 05/12/18 13:11 05/12/18 14:18 - Constitutional Appears: Well, Non-toxic, No Acute Distress - Head Exam Head Exam: ATRAUMATIC, NORMAL INSPECTION, NORMOCEPHALIC - Eye Exam Eye Exam: EOMI - ENT Exam ENT Exam: Mucous Membranes Moist - Respiratory Exam Respiratory Exam: NORMAL BREATHING PATTERN. absent: Respiratory Distress - GI/Abdominal Exam GI & Abdominal Exam: Soft, Normal Bowel Sounds. absent: Tenderness - Neurological Exam Neurological Exam: Alert, Awake - Psychiatric Exam Psychiatric exam: Normal Affect, Normal Mood - Skin Skin Exam: Dry, Intact, Normal Color, Warm Assessment and Plan - Assessment and Plan (Free Text) Assessment: 37F w/ malfunctioning permacath, now functioning Plan: Will proceed with AVF tomorrow Vein mapping NPO after midnight AM labs Further recommendations per Dr. Loretta Byrne PGY1
[2018-05-13 08:49] LABS: BASO # 0.1 K/uL (0.0-0.2); BASO % 0.6 % (0.0-2.0); EOS # 0.1 K/uL (0.0-0.7); EOS % 0.7 % (0.0-4.0); HEMOGLOBIN 11.2 g/dL (11.0-16.0); LYMPH # 1.1 K/uL (1.0-4.3); LYMPH % 9.3 % (20.0-40.0); MEAN CELL VOLUME 92.3 fL (81.0-99.0); MEAN CORPUSCULAR HEMOGLOBIN 31.3 pg (27.0-31.0); MEAN CORPUSCULAR HGB CONC 33.9 g/dL (33.0-37.0); MEAN PLATELET VOLUME 7.8 fL (7.2-11.7); MONO # 0.4 K/uL (0.0-0.8); MONO % 3.4 % (0.0-10.0); NEUT # 10.6 K/uL (1.8-7.0); PLATELET COUNT 318 K/uL (130-400); RBC 3.56 Mil/uL (3.80-5.20); RED CELL DISTRIBUTION WIDTH 14.1 % (11.5-14.5); WHITE BLOOD COUNT 12.4 K/uL (4.8-10.8)
[2018-05-13 08:55] LABS: ALB/GLOB RATIO 1.8 (1.0-2.1); ALBUMIN 4.4 g/dL (3.5-5.0); CALCIUM 8.8 mg/dl (8.6-10.4)
[2018-05-13 09:00] LABS: PROTHROMBIN TIME 11.2 SECONDS (9.7-12.2)
--- NOTE | 2018-05-13 09:25 | CP.PCM.PN ---
Subjective - Date & Time of Evaluation Date of Evaluation: 05/13/18 Time of Evaluation: 09:22 - Subjective Subjective: Stable dialysis 1/2- UF 4000ml Feels better Agreed for AV access placement in AM No SOB, CPs Objective - Vital Signs/Intake and Output Vital Signs (last 24 hours): Temp Pulse Resp BP Pulse Ox 98.0 F 88 20 136/79 98 05/13/18 08:00 05/13/18 08:00 05/13/18 08:00 05/13/18 08:00 05/13/18 08:00 Intake and Output: 05/13/18 05/13/18 06:59 18:59 Intake Total 700 Balance 700 - Medications Medications: Current Medications Alprazolam (Xanax) 0.5 mg PO BID PRN PRN Reason: Anxiety Amlodipine Besylate (Norvasc) 10 mg PO DAILY [facility] Last Admin: 05/12/18 09:38 Dose: 10 mg Cinacalcet (Sensipar) 30 mg PO DAILY [facility] Last Admin: 05/12/18 10:38 Dose: 30 mg Clonidine HCl (Catapres) 0.3 mg PO BID [facility] Last Admin: 05/12/18 22:40 Dose: 0.3 mg Heparin Sodium (Porcine) (Heparin) 5,000 units SC Q8 [facility] Last Admin: 05/13/18 05:30 Dose: 5,000 units Heparin Sodium (Porcine) (Heparin) 3,700 units IVP MWF [facility] Stop: 05/18/18 09:01 Hydralazine HCl (Apresoline) 100 mg PO BID [facility] Last Admin: 05/12/18 22:43 Dose: 100 mg Labetalol HCl (Normodyne) 300 mg PO BID [facility] Last Admin: 05/12/18 22:40 Dose: 300 mg Ondansetron HCl (Zofran Inj) 4 mg IVP Q4H PRN PRN Reason: Nausea/Vomiting Last Admin: 05/11/18 22:28 Dose: 4 mg Oxycodone/Acetaminophen (Percocet 5/325 Mg Tab) 1 tab PO Q4H PRN PRN Reason: Pain, moderate (4-7) Stop: 05/14/18 20:15 Last Admin: 05/12/18 21:20 Dose: 1 tab Zolpidem Tartrate (Ambien) 5 mg PO HS PRN PRN Reason: Insomnia Last Admin: 05/12/18 22:42 Dose: 5 mg - Labs Labs: 05/13/18 08:31 05/13/18 08:31 PT 11.2 SECONDS (9.7-12.2) 05/13/18 08:31 INR 1.0 05/13/18 08:31 APTT 30 SECONDS (21-34) 05/13/18 08:31 - Constitutional Appears: No Acute Distress, Chronically Ill - Head Exam Head Exam: ATRAUMATIC, NORMAL INSPECTION - Eye Exam Eye Exam: EOMI, Normal appearance - Neck Exam Neck Exam: Normal Inspection. absent: Tenderness - Respiratory Exam Respiratory Exam: Clear to Ausculation Bilateral, NORMAL BREATHING PATTERN - Cardiovascular Exam Cardiovascular Exam: REGULAR RHYTHM, +S1 - GI/Abdominal Exam GI & Abdominal Exam: Soft. absent: Tenderness - Extremities Exam Extremities Exam: Normal Inspection. absent: Tenderness - Neurological Exam Neurological Exam: Awake, CN II-XII Intact - Skin Skin Exam: Dry, Warm Assessment and Plan (1) Fluid overload Status: Acute (2) ESRD (end stage renal disease) Status: Acute (3) Hypertensive chronic kidney disease with stage 5 chronic kidney disease or end stage renal disease Status: Acute - Assessment and Plan (Free Text) Plan: dialysis today then AV access in AM
[2018-05-13] MEDS: Labetalol Hydrochloride 300 mg Tab PO SCH ×2 (09:38→17:29)
[2018-05-13] MEDS: Oxycodone/Acetaminophen 5/325 mg Tab PO PRN ×2 (09:47→15:40)
[2018-05-13 10:38] LABS: BANDS 2 % (0-2); EOSINOPHIL 1 % (0-4); LYMPHOCYTE 9 % (20-40); MONOCYTE 3 % (0-10); NEUTROPHIL 85 % (50-75); PLATELET ESTIMATE NORMAL (NORMAL); TOTAL CELLS COUNTED 100
[2018-05-13 10:39] LABS: LARGE PLATELETS PRESENT
--- NOTE | 2018-05-13 21:52 | CP.PCM.PN ---
Subjective - Date & Time of Evaluation Date of Evaluation: 05/13/18 Time of Evaluation: 17:20 - Subjective Subjective: Patient seen and evaluated Denies chest pain and dyspnea Physical Exam - Constitutional Appears: In Acute Distress - Head Exam Head Exam: NORMAL INSPECTION - Eye Exam Eye Exam: EOMI, Normal appearance, PERRL - ENT Exam ENT Exam: Mucous Membranes Moist - Neck Exam Neck exam: Positive for: Normal Inspection - Respiratory Exam Respiratory Exam: Clear to Auscultation Bilateral. absent: Rales, Rhonchi, Wheezes - Cardiovascular Exam Cardiovascular Exam: RRR, +S1, +S2. absent: Diastolic murmur, Gallop, Rubs, Systolic Murmur - GI/Abdominal Exam GI & Abdominal Exam: Soft. absent: Distended, Guarding, Rebound, Tenderness - Extremities Exam Extremities exam: Positive for: normal inspection - Back Exam Back exam: NORMAL INSPECTION - Neurological Exam Neurological exam: Alert, CN II-XII Intact, Oriented x3 - Psychiatric Exam Psychiatric exam: Normal Affect, Normal Mood - Skin Skin Exam: Dry, Intact, Normal Color, Warm Assessment & Plan - Assessment and Plan (Free Text) Assessment: 37 yo F with PMH of ESRD on HD MWF, diastolic CHF, HTN, Recent Stress test: Normal ECHO: Normal EF As per ACC/AHA guidelines this patient assessed as low to moderate cardiac risk for AV fistula surgery under general anaesthesia If benefit outweighs the risks please proceed with the surgery Objective - Vital Signs/Intake and Output Vital Signs (last 24 hours): Temp Pulse Resp BP Pulse Ox 98.1 F 68 18 117/77 100 05/13/18 18:50 05/13/18 18:50 05/13/18 18:50 05/13/18 21:20 05/13/18 18:50 Intake and Output: 05/13/18 05/14/18 18:59 06:59 Intake Total 480 Balance 480 - Medications Medications: Current Medications Alprazolam (Xanax) 0.5 mg PO BID PRN PRN Reason: Anxiety Amlodipine Besylate (Norvasc) 10 mg PO DAILY [facility] Last Admin: 05/13/18 09:38 Dose: Not Given Cinacalcet (Sensipar) 30 mg PO DAILY [facility] Last Admin: 05/13/18 09:43 Dose: 30 mg Clonidine HCl (Catapres) 0.3 mg PO BID [facility] Last Admin: 05/13/18 17:29 Dose: 0.3 mg Heparin Sodium (Porcine) (Heparin) 5,000 units SC Q8 [facility] Last Admin: 05/13/18 13:16 Dose: 5,000 units Heparin Sodium (Porcine) (Heparin) 3,700 units IVP MWF [facility] Stop: 05/18/18 09:01 Hydralazine HCl (Apresoline) 100 mg PO BID [facility] Last Admin: 05/13/18 17:28 Dose: 100 mg Labetalol HCl (Normodyne) 300 mg PO BID [facility] Last Admin: 05/13/18 17:29 Dose: 300 mg Ondansetron HCl (Zofran Inj) 4 mg IVP Q4H PRN PRN Reason: Nausea/Vomiting Last Admin: 05/11/18 22:28 Dose: 4 mg Oxycodone/Acetaminophen (Percocet 5/325 Mg Tab) 1 tab PO Q4H PRN PRN Reason: Pain, moderate (4-7) Stop: 05/14/18 20:15 Last Admin: 05/13/18 15:40 Dose: 1 tab Zolpidem Tartrate (Ambien) 5 mg PO HS PRN PRN Reason: Insomnia Last Admin: 05/12/18 22:42 Dose: 5 mg - Labs Labs: 05/13/18 08:31 05/13/18 08:31 PT 11.2 SECONDS (9.7-12.2) 05/13/18 08:31 INR 1.0 05/13/18 08:31 APTT 30 SECONDS (21-34) 05/13/18 08:31
[2018-05-13 23:32] VITALS: RESP 20
--- NOTE | 2018-05-14 07:16 | CP.PCM.PN ---
Subjective - Date & Time of Evaluation Date of Evaluation: 05/14/18 Time of Evaluation: 07:13 - Subjective Subjective: Medicine Note for Dr. Zuleta's Service Patient was seen and examined at bedside. Patient reports she does not want to wait for surgery at 5pm. Patient will have surgery on 05/20 (11am). ROS unremarkable. Objective - Vital Signs/Intake and Output Vital Signs (last 24 hours): Temp Pulse Resp BP Pulse Ox 98.3 F 65 20 113/64 95 05/13/18 23:29 05/13/18 23:29 05/13/18 23:29 05/13/18 23:29 05/13/18 23:29 Intake and Output: 05/14/18 05/14/18 06:59 18:59 Intake Total 250 Balance 250 - Medications Medications: Current Medications Alprazolam (Xanax) 0.5 mg PO BID PRN PRN Reason: Anxiety Amlodipine Besylate (Norvasc) 10 mg PO DAILY [facility] Last Admin: 05/13/18 09:38 Dose: Not Given Cinacalcet (Sensipar) 30 mg PO DAILY [facility] Last Admin: 05/13/18 09:43 Dose: 30 mg Clonidine HCl (Catapres) 0.3 mg PO BID [facility] Last Admin: 05/13/18 17:29 Dose: 0.3 mg Heparin Sodium (Porcine) (Heparin) 5,000 units SC Q8 [facility] Last Admin: 05/13/18 22:03 Dose: 5,000 units Heparin Sodium (Porcine) (Heparin) 3,700 units IVP MWF [facility] Stop: 05/18/18 09:01 Hydralazine HCl (Apresoline) 100 mg PO BID [facility] Last Admin: 05/13/18 17:28 Dose: 100 mg Labetalol HCl (Normodyne) 300 mg PO BID [facility] Last Admin: 05/13/18 17:29 Dose: 300 mg Ondansetron HCl (Zofran Inj) 4 mg IVP Q4H PRN PRN Reason: Nausea/Vomiting Last Admin: 05/11/18 22:28 Dose: 4 mg Oxycodone/Acetaminophen (Percocet 5/325 Mg Tab) 1 tab PO Q4H PRN PRN Reason: Pain, moderate (4-7) Stop: 05/14/18 20:15 Last Admin: 05/13/18 15:40 Dose: 1 tab Zolpidem Tartrate (Ambien) 5 mg PO HS PRN PRN Reason: Insomnia Last Admin: 05/12/18 22:42 Dose: 5 mg - Labs Labs: 05/13/18 08:31 05/13/18 08:31 PT 11.2 SECONDS (9.7-12.2) 05/13/18 08:31 INR 1.0 05/13/18 08:31 APTT 30 SECONDS (21-34) 05/13/18 08:31 - Additional Findings Additional findings: - Constitutional Appears: No Acute Distress - Head Exam Head Exam: ATRAUMATIC, NORMAL INSPECTION - Eye Exam Eye Exam: EOMI, Normal appearance - ENT Exam ENT Exam: Mucous Membranes Moist - Respiratory Exam Respiratory Exam: Clear to Ausculation Bilateral, NORMAL BREATHING PATTERN. absent: Rhonchi, Wheezes, Respiratory Distress - Cardiovascular Exam Cardiovascular Exam: REGULAR RHYTHM, +S1, +S2 Additional comments: Right chest permacath; dressing c/d/i - GI/Abdominal Exam GI & Abdominal Exam: Soft, Normal Bowel Sounds. absent: Distended, Firm, Te nderness - Extremities Exam Extremities Exam: Normal Inspection. absent: Pedal Edema, Tenderness - Neurological Exam Neurological Exam: Alert, Awake, Oriented x3 - Skin Skin Exam: Dry, Normal Color, Warm Assessment and Plan - Assessment and Plan (Free Text) Plan: ESRD on HD MWF, R Permacath, Plan for AVF during this admission - Nephrology - Dr. Jordan consulted - General Surgery - Dr. Burgos consulted for malfunctioning permacath and AVF placement - Cardiology - Dr. Raines consulted for clearance for AVF Management: - Continue Sensipar - Patient had exercise stress test on 04/08/18 which was negative for any ischemia. Spoke to Dr. Raines who stated the patient is low risk for any cardiovascular event for AVF under general anesthesia. Please refer to the Cardiology consult note. - Patient is scheduled for vein mapping and AVF placement on 05/20/18 Uncontrolled Hypertension - Resumed home medications: Norvasc 10mg daily, hydralazine 100mg PO BID, Labetalol 300mg PO BID, Clonidine 0.3mg PO BID Prophylactic Measures - GI PPX: not indicated - DVT PPX: Heparin 5000 Q8H, SCDs Disposition: Patient is medically stable for discharge. Patient will have AVF creation 05/20/[address] Burgos. She will continue with dialysis MWF. Please follow up with Dr. Zuleta within 1-2 weeks. Follow up with Dr. Burgos as instructed after AVF creation. Case discussed with Dr. Zuleta, Verito Greer DO, PGY2
[2018-05-14 07:50] LABS: BASO # 0.1 K/uL (0.0-0.2); BASO % 0.6 % (0.0-2.0); EOS # 0.1 K/uL (0.0-0.7); HEMOGLOBIN 11.7 g/dL (11.0-16.0); LYMPH # 1.2 K/uL (1.0-4.3); LYMPH % 10.6 % (20.0-40.0); MEAN CELL VOLUME 92.4 fL (81.0-99.0); MEAN CORPUSCULAR HEMOGLOBIN 31.8 pg (27.0-31.0); MEAN CORPUSCULAR HGB CONC 34.4 g/dL (33.0-37.0); MEAN PLATELET VOLUME 7.7 fL (7.2-11.7); MONO # 0.4 K/uL (0.0-0.8); MONO % 3.8 % (0.0-10.0); NEUT # 9.5 K/uL (1.8-7.0); RBC 3.68 Mil/uL (3.80-5.20); WHITE BLOOD COUNT 11.3 K/uL (4.8-10.8)
[2018-05-14 08:15] LABS: ALB/GLOB RATIO 1.7 (1.0-2.1); ALBUMIN 4.8 g/dL (3.5-5.0); ALT/SGPT 16 U/L (9-52); AST/SGOT 20 U/L (14-36); BLOOD UREA NITROGEN 22 mg/dL (7-17); CALCIUM 9.1 mg/dl (8.6-10.4); GFR NON-AFRICAN AMERICAN 18
[2018-05-14 08:25] VITALS: BP 178/104; PULSE 81; TEMP 98; O2SAT 96
--- NOTE | 2018-05-14 09:04 | CP.PCM.PN ---
Subjective - Date & Time of Evaluation Date of Evaluation: 05/14/18 Time of Evaluation: 06:45 - Subjective Subjective: Vascular Surgery Progress note. Dr. Burgos Pt seen and examined at bedside. No acute events overnight. Patient upset this morning as she does not want to wait until the late afternoon for surgery. She states that she would like to be discharged or will sign out against medical advice today and have the AVF created on another day. Objective - Vital Signs/Intake and Output Vital Signs (last 24 hours): Temp Pulse Resp BP Pulse Ox 98.0 F 81 20 178/104 H 96 05/14/18 07:23 05/14/18 07:23 05/14/18 07:23 05/14/18 07:23 05/14/18 07:23 Intake and Output: 05/14/18 05/14/18 06:59 18:59 Intake Total 250 Balance 250 - Medications Medications: Current Medications Alprazolam (Xanax) 0.5 mg PO BID PRN PRN Reason: Anxiety Amlodipine Besylate (Norvasc) 10 mg PO DAILY [facility] Last Admin: 05/13/18 09:38 Dose: Not Given Cinacalcet (Sensipar) 30 mg PO DAILY [facility] Last Admin: 05/13/18 09:43 Dose: 30 mg Clonidine HCl (Catapres) 0.3 mg PO BID [facility] Last Admin: 05/13/18 17:29 Dose: 0.3 mg Heparin Sodium (Porcine) (Heparin) 5,000 units SC Q8 [facility] Last Admin: 05/13/18 22:03 Dose: 5,000 units Heparin Sodium (Porcine) (Heparin) 3,700 units IVP MWF [facility] Stop: 05/18/18 09:01 Hydralazine HCl (Apresoline) 100 mg PO BID [facility] Last Admin: 05/13/18 17:28 Dose: 100 mg Labetalol HCl (Normodyne) 300 mg PO BID [facility] Last Admin: 05/13/18 17:29 Dose: 300 mg Ondansetron HCl (Zofran Inj) 4 mg IVP Q4H PRN PRN Reason: Nausea/Vomiting Last Admin: 05/11/18 22:28 Dose: 4 mg Oxycodone/Acetaminophen (Percocet 5/325 Mg Tab) 1 tab PO Q4H PRN PRN Reason: Pain, moderate (4-7) Stop: 05/14/18 20:15 Last Admin: 05/13/18 15:40 Dose: 1 tab Zolpidem Tartrate (Ambien) 5 mg PO HS PRN PRN Reason: Insomnia Last Admin: 05/12/18 22:42 Dose: 5 mg - Labs Labs: 05/14/18 07:40 05/14/18 07:40 PT 11.2 SECONDS (9.7-12.2) 05/13/18 08:31 INR 1.0 05/13/18 08:31 APTT 30 SECONDS (21-34) 05/13/18 08:31 - Constitutional Appears: Well, Non-toxic, No Acute Distress - Head Exam Head Exam: ATRAUMATIC, NORMAL INSPECTION, NORMOCEPHALIC - Eye Exam Eye Exam: EOMI, Normal appearance. absent: Scleral icterus - ENT Exam ENT Exam: Mucous Membranes Moist - Respiratory Exam Respiratory Exam: NORMAL BREATHING PATTERN. absent: Accessory Muscle Use, Whee zes, Respiratory Distress - Cardiovascular Exam Cardiovascular Exam: absent: JVD, RRR - GI/Abdominal Exam GI & Abdominal Exam: Soft. absent: Distended, Firm, Guarding, Tenderness, Rebound - Extremities Exam Extremities Exam: Normal Inspection. absent: Calf Tenderness - Neurological Exam Neurological Exam: Alert, Awake, Oriented x3 - Skin Skin Exam: Dry, Intact, Normal Color, Warm Assessment and Plan - Assessment and Plan (Free Text) Assessment: 37F with ESRD on HD. Needs AVF creation Plan: - AVF creation rescheduled for 05/20/18 as per patient request - Patient may be discharged and come back for surgery - Continue HD via permacath in the interim Further recs as per Dr. Loretta Duffy PGY2 surgery
[2018-05-14] MEDS: Labetalol Hydrochloride 300 mg Tab PO SCH (09:40)
== END 2018-05-14 12:25 | disposition home or self-care (01) | DRG 569 ==
LOC: C.ER 14:25 → C.9E 16:52 → C.3T 17:32
PROVIDERS: ADMIT Internal Medicine Pulmonary Disease; ATTEND Internal Medicine Pulmonary Disease
PROC: 5A1D70Z Performance of Urinary Filtration, Intermittent, Less than 6 Hours Per Day (ICD-10-PCS; principal; 2018-05-12)
DX: T82.838A Hemorrhage due to vascular prosthetic devices, implants and grafts, initial encounter (principal); I50.32 Chronic diastolic (congestive) heart failure; N18.6 End stage renal disease; I13.2 Hypertensive heart and chronic kidney disease with heart failure and with stage 5 chronic kidney disease, or end stage renal disease; Z99.2 Dependence on renal dialysis; Y84.1 Kidney dialysis as the cause of abnormal reaction of the patient, or of later complication, without mention of misadventure at the time of the procedure; F17.210 Nicotine dependence, cigarettes, uncomplicated; M16.12 Unilateral primary osteoarthritis, left hip; D63.8 Anemia in other chronic diseases classified elsewhere; F41.9 Anxiety disorder, unspecified; G47.00 Insomnia, unspecified; Z91.15 Patient's noncompliance with renal dialysis

== ENCOUNTER 2018-05-20 10:56 | Day surgery (SDC) | payer MEDICAID, OTHER ==
[2018-05-20 12:04] LABS: CALCIUM 9.8 mg/dl (8.6-10.4)
[2018-05-20 12:19] VITALS: O2SAT 100
[2018-05-20] MEDS ORDERED: HEPARIN-NS 5,000 UNITS/500 ML 5,000 UNIT/500 ML BAG IV ONE (12:50)
[2018-05-20] MEDS ORDERED: ceFAZolin 1 gm FROZEN Premix 0 GM/0 ML ML IVPB ONE (12:50)
[2018-05-20] MEDS ORDERED: Midazolam 2 MG/2 ML VIAL ONE ×2 (14:17→15:11)
[2018-05-20] MEDS ORDERED: Propofol 10 mg/ml Inj (20 ML) ONE (14:17)
[2018-05-20] MEDS ORDERED: ceFAZolin 1 gm in NS 1 GM/100 ML BAG IVPB ONE (14:56)
[2018-05-20] MEDS ORDERED: Lidocaine Hydrochloride 0 ML INJ ONE (14:56)
[2018-05-20] MEDS ORDERED: Papaverine Hydrochloride 30 mg/ml (2ml) ONE (15:42)
--- NOTE | 2018-05-20 16:44 | PCM.SURG1 ---
Surgeon's Initial Post Op Note - Surgeon's Notes Surgeon: Dr. Burgos Fine Dining Server: Clive PGY2; Raegan MS 3 Type of Anesthesia: General LMA Anesthesia Administered By: Dr. Juarez Pre-Operative Diagnosis: End Stage Renal Disease Operative Findings: See operative Report Post-Operative Diagnosis: Same Operation Performed: Left Snuffbox AVF creation Specimen/Specimens Removed: none Estimated Blood Loss: EBL {In ML}: 20 Blood Products Given: N/A Drains Used: No Drains Post-Op Condition: Good Date of Surgery/Procedure: 05/20/18 Time of Surgery/Procedure: 16:48
[2018-05-20] MEDS: HYDROmorphone 0.5 mg/0.5 ml ISec IVP PRN ×2 (16:45→17:00)
[2018-05-20 17:27] VITALS: RESP 18
[2018-05-20 17:53] VITALS: BP 152/99; PULSE 68; TEMP 97.8
--- NOTE | 2018-05-21 04:20 | OP ---
PROCEDURE DATE: 05/20/2018 PREOPERATIVE DIAGNOSIS: Renal failure. POSTOPERATIVE DIAGNOSIS: Renal failure. PROCEDURE CARRIED OUT: Placement of AV fistula, snuffbox type, left wrist. SURGEON: Mina Burgos Jr., MD SCOOP DRIVER: Thai Duffy DO ANESTHESIOLOGIST: Mr. Aguilera. INDICATIONS: The patient is a 37-year-old with renal insufficiency. She has multiple film access in the left arm including a shunt which was successfully placed but had to remove because of infection. OPERATIVE FINDINGS: A fistula was created between the branches of cephalic vein and the adjacent branches of radial artery at the wrist in a snuffbox position. The fistula was carried out using loupe magnification and heparin anticoagulation. The configuration was an end-to-side fistula. At the end of procedure, there was excellent flow to the fistula. BLOOD LOSS: Less than 20 mL. DESCRIPTION OF PROCEDURE: The patient was given general anesthesia and intravenous antibiotics. Venodyne boots were applied. Antibiotics were given. An incision was made exposing the vein which have been marked on the skin with the use of immediate preoperative vein mapping. The other veins in the arm have previously been studied and evaluated. Incision was made. Fistula was created. Hemostasis was obtained. Skin was closed. Blood loss was as mentioned. Operation carried out is snuffbox fistula, left wrist. The vein was at least 2 mm in diameter. Mina Burgos Jr., MD
== END 2018-05-20 18:29 | disposition home or self-care (01) ==
LOC: C.SDS 10:56
PROVIDERS: ATTEND Surgery Vascular Surgery
DX: N18.6 End stage renal disease (principal)
CPT/HCPCS: 36415; 36821; 80048; 84702; J0690; J1170; J1644; J2250; J2440; J2704; J3010; J7030; J7040

== ENCOUNTER 2018-06-06 07:59 | Emergency (ER) | payer MEDICAID ==
[2018-06-06 08:00] VITALS: BMI 23.5
--- NOTE | 2018-06-06 08:13 | C.PDOC ---
History Of Present Illness 37 years old female with PMHx of ESRD (on dialysis MWF), CHF, HTN, pancreatitis, and gastritis, presents to ED for complaints of diffuse abdominal pain associated with vomiting that began two days ago. Patient reports prior similar symptoms with diagnosis of gastritis. Patient states last dialysis on Thursday (2 days ago). She also reports she took her HTN medications today. Denies diarrhea, chest pain, shortness of breath, cough, fever, chills, or any other complaints. Patient presented to ED tachycardic and hypertensive. Patient has past surgical history of cholecystectomy and endoscopy. Time Seen by Provider: 06/06/18 08:10 Chief Complaint (Nursing): Abdominal Pain History Per: Patient History/Exam Limitations: no limitations Onset/Duration Of Symptoms: Days (2) Current Symptoms Are (Timing): Still Present Location Of Pain/Discomfort: Diffuse Radiation Of Pain To:: None Associated Symptoms: Nausea, Vomiting. denies: Fever, Chills, Diarrhea, Urinary Symptoms Exacerbating Factors: None Alleviating Factors: None Last Bowel Movement: Today Recent travel outside of the [place]: No Abnormal Vaginal Bleeding: No Past Medical History Reviewed: Historical Data, Nursing Documentation, Vital Signs Vital Signs: Last Vital Signs Temp 98.5 F 06/06/18 08:02 Pulse 118 H 06/06/18 08:02 Resp 18 06/06/18 08:02 BP 198/149 H 06/06/18 08:02 Pulse Ox 100 06/06/18 08:02 - Medical History PMH: Anemia, Anxiety, Arthritis (L HIP), CHF, Depression, Gall Bladder Disease (CHOLECYSTECTOMY), HTN, Kidney Stones (Left), Pancreatitis (02-06-18), Peripheral Edema, Pneumonia, End Stage Renal Disease, Chronic Kidney Disease Surgical History: Cholecystectomy, Endoscopy - [facility] Procedures (05/11/18) (05/25/17) INSERT OF INFUSION DEV INTO PERITON CAV, PERC ENDO APPROACH (11/08/16) INSERTION OF INFUSION DEV INTO SUP VENA CAVA, PERC APPROACH (05/25/17) IRRIGATION OF PERITON CAV USING DIALYSATE, PERC APPROACH (03/28/17) PERFORMANCE OF BILIARY FILTRATION, MULTIPLE (05/25/17) PERFORMANCE OF URINARY FILTRATION, SINGLE (12/31/16) PLAIN RADIOGRAPHY OF BILE DUCTS USING OTHER CONTRAST (11/29/16) REMOVE VAD RESERVOIR FROM UP EXTREM SUBCU/FASCIA, PERC (12/30/17) RESECTION OF GALLBLADDER, PERCUTANEOUS ENDOSCOPIC APPROACH (11/29/16) Family History: States: Unknown Family Hx - Social History Hx Alcohol Use: No Hx Substance Use: No - Immunization History Hx Tetanus Toxoid Vaccination: Yes Hx Influenza Vaccination: Yes Hx Pneumococcal Vaccination: Yes Review Of Systems Except As Marked, All Systems Reviewed And Found Negative. Constitutional: Negative for: Fever, Chills Cardiovascular: Negative for: Chest Pain Respiratory: Negative for: Shortness of Breath Gastrointestinal: Positive for: Nausea, Vomiting, Abdominal Pain. Negative for: Diarrhea Genitourinary: Negative for: Dysuria Skin: Negative for: Rash Neurological: Negative for: Weakness, Numbness Physical Exam - Physical Exam Appears: Non-toxic, No Acute Distress Skin: Normal Color, Warm, Dry, No Rash Head: Atraumatic, Normacephalic Eye(s): bilateral: Normal Inspection, PERRL, EOMI Oral Mucosa: Moist Neck: Normal ROM, Supple Chest: Symmetrical, No Tenderness, Other (Right permacath) Cardiovascular: Rhythm Regular (Tachycardic and Hypertensive ) Respiratory: Normal Breath Sounds, No Rales, No Rhonchi, No Wheezing Gastrointestinal/Abdominal: Soft, Tenderness (Mild epigastric ) Extremity: Normal ROM, No Pedal Edema, Other (Shunt in left hand ) Extremity: Bilateral: Atraumatic, Normal Color And Temperature, Normal ROM Pulses: Left Radial: Normal, Right Radial: Normal Neurological/Psych: Oriented x3, Normal Speech, Other (No focal deficits ) Gait: Steady ED Course And Treatment - Laboratory Results Result Diagrams: 06/06/18 08:41 06/06/18 08:41 O2 Sat by Pulse Oximetry: 100 (RA) Pulse Ox Interpretation: Normal - Other Rad CXR X-Ray: Viewed By Me, Read By Radiologist Interpretation: Chest x-ray single frontal view. HISTORY: Hemodialysis patient. COMPARISON: 05/11/2018. Findings: Right PermCath with tip extending into the right atrium. Mild venous congestion. Mild patchy increased markings in the right infrahilar region. Top normal heart size. Impression: Right PermCath with tip extending into the right atrium. Mild venous congestion. Mild patchy increased markings in the right infrahilar region. - CT Scan/US CT Head Other Rad Studies (CT/US): Read By Radiologist, Radiology Report Reviewed CT/US Interpretation: Date of service: 06/06/2018. PROCEDURE: CT HEAD WITHOUT CONTRAST. HISTORY: vomiting and hypertension. COMPARISON: 06/06/2018. TECHNIQUE: Axial computed tomography images were obtained through the head/brain without intravenous contrast. Radiation dose: Total exam DLP = 1069.9 mGy-cm. This CT exam was performed using one or more of the following dose reduction techniques: Automated exposure control, adjustment of the mA and/or kV according to patient size, and/or use of iterative reconstruction technique. FINDINGS: HEMORRHAGE: No intracranial hemorrhage. BRAIN: No mass effect or edema. Some focal areas of low attenuation seen at the level of the bilateral external capsule; left greater than right which may represent lacunar infarcts versus prominent perivascular spaces. Scattered focal lucencies in the subcortical and periventricular white matter suggestive for chronic microvascular ischemic change. VENTRICLES: Unremarkable. No hydrocephalus. CALVARIUM: Unremarkable. PARANASAL SINUSES: Unremarkable as visualized. No significant inflammatory changes. MASTOID AIR CELLS: Unremarkable as visualized. No inflammatory changes. OTHER FINDINGS: Intracranial arterial calcifications. IMPRESSION: Some focal areas of low attenuation seen at the level of the bilateral external capsules; left greater than right which may represent lacunar infarcts versus prominent perivascular spaces. Correlation with MRI may be helpful if clinically indicated. Medical Decision Making Medical Decision Making: Plan: * Carapres * Maalox * Morphine * Pepcid * Zofran * Blood Gas * EKG * Blood work * CXR Progress: 11:25: Patient was persistently hypertensive and unable to tolerate Carapres PO initially. Patient was complaining of a lot of pain. Administered pepcid, maalox, morphine and started nitroprusside for hypertensivness urgency. Patient currently sleeping comfortably after medications. Reviewed old record visits: Positive past opiods and benzos use. CT Head was done today to r/o bleed or ICH. Will admit to telemetry once blood pressure is stabilized. 12:55: Patient woke up asking for Ice and Juice. She states she feels better and requesting to go home. Patient has no complaints at this time. Patient is stable for discharge and will be discharged. Patient is in agreement. Advised to follow up with PMD. Return if symptoms persist or worsen. Disposition Counseled Patient/Family Regarding: Need For Followup - Disposition Referrals: Joseph Zuleta MD [Staff Provider] - Disposition: HOME/ ROUTINE Disposition Time: 12:56 Condition: STABLE Instructions: Gastritis, Nausea and Vomiting, Adult (DC) Forms: [facility] (Upper Sorbian) - POA Present On Arrival: None - Clinical Impression Clinical Impression: Vomiting, Gastritis - Scribe Statement The provider has reviewed the documentation as recorded by the Scribe Justin Rust All medical record entries made by the Chapinibe were at my direction and personally dictated by me. I have reviewed the chart and agree that the record accurately reflects my personal performance of the history, physical exam, medical decision making, and the department course for this patient. I have also personally directed, reviewed, and agree with the discharge instructions and disposition.
[2018-06-06 08:46] LABS: BASO # 0.1 K/uL (0.0-0.2); BASO % 0.7 % (0.0-2.0); EOS # 0.2 K/uL (0.0-0.7); EOS % 1.6 % (0.0-4.0); HEMOGLOBIN 12.9 g/dL (11.0-16.0); LYMPH # 1.2 K/uL (1.0-4.3); LYMPH % 8.6 % (20.0-40.0); MEAN CELL VOLUME 92.8 fL (81.0-99.0); MEAN CORPUSCULAR HEMOGLOBIN 30.9 pg (27.0-31.0); MEAN CORPUSCULAR HGB CONC 33.3 g/dL (33.0-37.0); MONO # 0.4 K/uL (0.0-0.8); MONO % 3.2 % (0.0-10.0); NEUT # 11.9 K/uL (1.8-7.0); NEUT % 85.9 % (50.0-75.0); PLATELET COUNT 386 K/uL (130-400); RBC 4.18 Mil/uL (3.80-5.20); RED CELL DISTRIBUTION WIDTH 14.2 % (11.5-14.5); WHITE BLOOD COUNT 13.9 K/uL (4.8-10.8)
[2018-06-06 08:47] LABS: VENOUS BLOOD GAS BASE EXCESS 1.9 mmol/L (0.0-2.0); VENOUS BLOOD GAS PCO2 41 mmHg (40-60); VENOUS BLOOD GAS PO2 47 mm/Hg (30-55); VENOUS BLOOD PH 7.42 (7.32-7.43)
[2018-06-06] MEDS ORDERED: Aluminum Hydroxide/Magnesium Hydroxide Susp (30 mL) PO STA (08:47)
[2018-06-06] MEDS ORDERED: Morphine 4 MG/ML VIAL ONE (09:03)
[2018-06-06 09:13] LABS: ALB/GLOB RATIO 1.7 (1.0-2.1); ALBUMIN 5.1 g/dL (3.5-5.0); CALCIUM 9.4 mg/dl (8.6-10.4)
[2018-06-06 09:18] LABS: TROPONIN I 0.094 ng/mL (0.00-0.120)
[2018-06-06 09:39] LABS: EOSINOPHIL 2 % (0-4); LYMPHOCYTE 7 % (20-40); MONOCYTE 3 % (0-10); NEUTROPHIL 88 % (50-75); PLATELET ESTIMATE NORMAL (NORMAL); TOTAL CELLS COUNTED 100
[2018-06-06 09:40] LABS: ANISOCYTOSIS SLIGHT; HYPOCHROMIC SLIGHT; POLYCHROMIC SLIGHT
--- NOTE | 2018-06-06 10:02 | RAD ---
Chest x-ray single frontal view HISTORY: Hemodialysis patient. COMPARISON: 05/11/2018 Findings: Right PermCath with tip extending into the right atrium. Mild venous congestion. Mild patchy increased markings in the right infrahilar region. Top normal heart size. Impression: Right PermCath with tip extending into the right atrium. Mild venous congestion. Mild patchy increased markings in the right infrahilar region.
--- NOTE | 2018-06-06 11:16 | CT ---
Date of service: 06/06/2018 PROCEDURE: CT HEAD WITHOUT CONTRAST. HISTORY: vomiting and hypertension COMPARISON: 06/06/2018 TECHNIQUE: Axial computed tomography images were obtained through the head/brain without intravenous contrast. Radiation dose: Total exam DLP = 1069.9 mGy-cm. This CT exam was performed using one or more of the following dose reduction techniques: Automated exposure control, adjustment of the mA and/or kV according to patient size, and/or use of iterative reconstruction technique. FINDINGS: HEMORRHAGE: No intracranial hemorrhage. BRAIN: No mass effect or edema. Some focal areas of low attenuation seen at the level of the bilateral external capsule; left greater than right which may represent lacunar infarcts versus prominent perivascular spaces. Scattered focal lucencies in the subcortical and periventricular white matter suggestive for chronic microvascular ischemic change. VENTRICLES: Unremarkable. No hydrocephalus. CALVARIUM: Unremarkable. PARANASAL SINUSES: Unremarkable as visualized. No significant inflammatory changes. MASTOID AIR CELLS: Unremarkable as visualized. No inflammatory changes. OTHER FINDINGS: Intracranial arterial calcifications. IMPRESSION: Some focal areas of low attenuation seen at the level of the bilateral external capsules; left greater than right which may represent lacunar infarcts versus prominent perivascular spaces. Correlation with MRI may be helpful if clinically indicated.
[2018-06-06 13:31] VITALS: BP 159/112; PULSE 104; RESP 18; TEMP 99.1; O2SAT 97
--- NOTE | 2018-06-09 22:45 | CARD ---
APPROVED REPORT Date of service: 06/06/2018 EKG Measurement Heart [id number] <Conclusion> Sinus tachycardia Voltage criteria for left ventricular hypertrophy Prolonged QT Abnormal ECG
== END 2018-06-06 13:23 | disposition home or self-care (01) ==
LOC: C.ER 07:59
DX: K29.70 Gastritis, unspecified, without bleeding (principal); R11.10 Vomiting, unspecified; I13.2 Hypertensive heart and chronic kidney disease with heart failure and with stage 5 chronic kidney disease, or end stage renal disease; I50.9 Heart failure, unspecified; N18.6 End stage renal disease; Z99.2 Dependence on renal dialysis; Z90.49 Acquired absence of other specified parts of digestive tract; F17.210 Nicotine dependence, cigarettes, uncomplicated
CPT/HCPCS: 70450; 71045; 80053; 82803; 82948; 83735; 83880; 84100; 84484; 85025; 85610; 85730; 93005; 96365; 96375; 99285; J2270; J2405; J7060

== ENCOUNTER 2018-06-08 09:57 | Emergency (ER) | payer MEDICAID ==
[2018-06-08 09:57] VITALS: BMI 23.5
[2018-06-08 10:19] VITALS: TEMP 98.2; O2SAT 98
[2018-06-08] MEDS ORDERED: Sodium Chloride 0.9% 1,000 ML IV ONE (10:35)
--- NOTE | 2018-06-08 10:40 | C.PDOC ---
History Of Present Illness 37 year old female patient with hx of pancreatitis and cholecystectomy presents to the emergency room complaining of intermittent stomach pain. Associated symptoms includes vomiting and lower back pain. Patient denies hematuria, dysu mitchell and fever. Patient was last seen here for similar symptom. Time Seen by Provider: 06/08/18 10:21 Chief Complaint (Nursing): Abdominal Pain History Per: Patient History/Exam Limitations: no limitations Onset/Duration Of Symptoms: Days Current Symptoms Are (Timing): Still Present Past Medical History Reviewed: Historical Data, Nursing Documentation, Vital Signs Vital Signs: Last Vital Signs Temp 98.2 F 06/08/18 10:14 Pulse 108 H 06/08/18 10:14 Resp 22 06/08/18 10:14 BP 225/130 H 06/08/18 10:14 Pulse Ox 98 06/08/18 10:14 - Medical History PMH: Anemia, Anxiety, Arthritis (L HIP), CHF, Depression, Gall Bladder Disease (CHOLECYSTECTOMY), HTN, Kidney Stones, Pancreatitis, Peripheral Edema, Pneumonia, End Stage Renal Disease, Chronic Kidney Disease Surgical History: Cholecystectomy, Endoscopy - [facility] Procedures (05/11/18) (05/25/17) INSERT OF INFUSION DEV INTO PERITON CAV, PERC ENDO APPROACH (11/08/16) INSERTION OF INFUSION DEV INTO SUP VENA CAVA, PERC APPROACH (05/25/17) IRRIGATION OF PERITON CAV USING DIALYSATE, PERC APPROACH (03/28/17) PERFORMANCE OF BILIARY FILTRATION, MULTIPLE (05/25/17) PERFORMANCE OF URINARY FILTRATION, SINGLE (12/31/16) PLAIN RADIOGRAPHY OF BILE DUCTS USING OTHER CONTRAST (11/29/16) REMOVE VAD RESERVOIR FROM UP EXTREM SUBCU/FASCIA, PERC (12/30/17) RESECTION OF GALLBLADDER, PERCUTANEOUS ENDOSCOPIC APPROACH (11/29/16) Family History: States: Unknown Family Hx - Social History Hx Alcohol Use: No Hx Substance Use: No - Immunization History Hx Tetanus Toxoid Vaccination: Yes Hx Influenza Vaccination: Yes Hx Pneumococcal Vaccination: Yes Review Of Systems Except As Marked, All Systems Reviewed And Found Negative. Constitutional: Negative for: Fever Gastrointestinal: Positive for: Vomiting, Abdominal Pain (intermittent ) Genitourinary: Negative for: Dysuria, Hematuria Musculoskeletal: Positive for: Back Pain (low) Physical Exam - Physical Exam Appears: Non-toxic, No Acute Distress Skin: Warm, Dry, No Rash Head: Normacephalic Chest: Symmetrical, Other (jessica catheter on right upper chest ) Cardiovascular: Rhythm Regular Respiratory: Normal Breath Sounds, No Rales, No Rhonchi, No Wheezing Gastrointestinal/Abdominal: Soft, No Tenderness, No Distention, No Guarding, No Rebound Back: Normal Inspection, No CVA Tenderness Extremity: Normal ROM (x4), Other (2 fistula in left arm not working ) Neurological/Psych: Oriented x3, Normal Speech, Normal Cognition, Normal Motor, Normal Sensation ED Course And Treatment - Laboratory Results Result Diagrams: 06/08/18 10:36 06/08/18 10:36 O2 Sat by Pulse Oximetry: 98 (RA) Pulse Ox Interpretation: Normal Medical Decision Making Medical Decision Making: Plans: -- chem labs -- blood work -- protonix -- IV fluids -- Zofran -- HCG -- UA Disposition - Disposition Referrals: Joseph Zuleta MD [Staff Provider] - Disposition: HOME/ ROUTINE Disposition Time: 13:21 Condition: IMPROVED Additional Instructions: Follow up with the medical doctor within 1-2 days. Return if worsened. Prescriptions: Aluminum Hydroxide/Magnesium [Maalox Plus 30 ml] 30 ml PO BID #250 ml Famotidine [Pepcid] 20 mg PO BID #20 tab Instructions: Gastritis (DC) Forms: [employer] (Arabic) - Clinical Impression Clinical Impression: Gastritis - PA / CHANGE RELEASE MANAGER / Resident Statement / has reviewed & agrees with the documentation as recorded. - Scribe Statement The provider has reviewed the documentation as recorded by the Funmi Peoples Do All medical record entries made by the Scribe were at my direction and personally dictated by me. I have reviewed the chart and agree that the record accurately reflects my personal performance of the history, physical exam, medical decision making, and the department course for this patient. I have also personally directed, reviewed, and agree with the discharge instructions and disposition.
[2018-06-08] MEDS ORDERED: Sodium Chloride 0.9% 1,000 ML ONE (10:47)
[2018-06-08 11:05] LABS: BASO # 0.1 K/uL (0.0-0.2); BASO % 0.6 % (0.0-2.0); EOS % 0.4 % (0.0-4.0); LYMPH # 1.1 K/uL (1.0-4.3); LYMPH % 8.2 % (20.0-40.0); MEAN CELL VOLUME 92.9 fL (81.0-99.0); MEAN CORPUSCULAR HEMOGLOBIN 31.3 pg (27.0-31.0); MEAN CORPUSCULAR HGB CONC 33.7 g/dL (33.0-37.0); MEAN PLATELET VOLUME 7.1 fL (7.2-11.7); MONO # 0.6 K/uL (0.0-0.8); MONO % 4.3 % (0.0-10.0); NEUT # 11.7 K/uL (1.8-7.0); NEUT % 86.5 % (50.0-75.0); NRBC % 0.1 % (0.0-2.0); PLATELET COUNT 308 K/uL (130-400); RBC 3.83 Mil/uL (3.80-5.20); RED CELL DISTRIBUTION WIDTH 13.7 % (11.5-14.5); WHITE BLOOD COUNT 13.5 K/uL (4.8-10.8)
[2018-06-08 11:15] LABS: HCG,QUALITATIVE URINE NEGATIVE (NEGATIVE)
[2018-06-08 11:22] LABS: SQUAMOUS EPITHIAL 5 /hpf (0-5); URINE BILIRUBIN NEGATIVE (NEGATIVE); URINE BLOOD NEGATIVE (NEGATIVE); URINE CLARITY Clear (Clear); URINE COLOR Yellow (YELLOW); URINE GLUCOSE (UA) NORMAL (Normal); URINE LEUKOCYTE ESTERASE NEG Leu/uL (Negative); URINE PROTEIN 3+ mg/dL (NEGATIVE); URINE UROBILINOGEN NORMAL mg/dL (0.2-1.0)
[2018-06-08 11:33] LABS: EOSINOPHIL 2 % (0-4); LYMPHOCYTE 7 % (20-40); MONOCYTE 2 % (0-10); NEUTROPHIL 89 % (50-75); TOTAL CELLS COUNTED 100
[2018-06-08 11:34] LABS: PLATELET ESTIMATE NORMAL (NORMAL)
[2018-06-08 11:47] LABS: ALBUMIN 4.7 g/dL (3.5-5.0); CALCIUM 9.2 mg/dl (8.6-10.4)
[2018-06-08] MEDS ORDERED: Morphine 4 MG/ML VIAL ONE (11:53)
[2018-06-08 11:55] VITALS: RESP 18
[2018-06-08] MEDS ORDERED: Alum-Mag Hydrox-Simethicone Susp (30 mL) PO STA (12:54)
[2018-06-08] MEDS ORDERED: Belladonna-Phenobarbital PO STA (12:54)
[2018-06-08] MEDS ORDERED: Alum-Mag Hydrox-Simethicone Susp (30 mL) ONE (13:29)
[2018-06-08] MEDS ORDERED: Belladonna-Phenobarbital ONE (13:29)
[2018-06-08 14:13] VITALS: BP 131/83; PULSE 90
== END 2018-06-08 14:13 | disposition home or self-care (01) ==
LOC: C.ER 09:57
DX: K29.70 Gastritis, unspecified, without bleeding (principal)
CPT/HCPCS: 80053; 81001; 83690; 84703; 85025; 96361; 96374; 96375; 99284; C9113; J2270; J2405; J2765; J7030

== ENCOUNTER 2018-06-08 15:01 | Inpatient (IN) | payer MEDICAID ==
[2018-06-08 15:01] VITALS: BMI 23.5
--- NOTE | 2018-06-08 15:13 | C.PDOC ---
History Of Present Illness 37 yr old F w/ hx of Anemia, Anxiety, CHF, Depression, Choleycystectomy, HTN, Pancreatitis, ESRD on HD MWF via subclavian HD catheter, gastritis p/w abdominal pain and chest pain. Pt notes that she was just seen in the ED for abdominal pain and vomiting. She notes after she was d/c she started having severe abdominal pain. She notes abdominal pain feels like her previous GERD, intermittent. She notes getting her dialysis yesterday. She notes multiple episodes of vomiting, non bloody, non dark. She denies any fall or trauma. No headache, neck stiffness. No constipation or diarrhea. No fever, chills or night sweats. No vaginal d/c or rash. No other complaints. Time Seen by Provider: 06/08/18 15:10 Chief Complaint (Nursing): Abdominal Pain Past Medical History Vital Signs: Last Vital Signs Temp 99.1 F 06/08/18 15:08 Pulse 116 H 06/08/18 15:08 Resp 20 06/08/18 15:08 BP 230/157 H 06/08/18 15:08 Pulse Ox 100 06/08/18 15:08 - Medical History PMH: Anemia, Anxiety, Arthritis (L HIP), CHF, Depression, Gall Bladder Disease (CHOLECYSTECTOMY), HTN, Kidney Stones, Pancreatitis, Peripheral Edema, Pneumonia, End Stage Renal Disease, Chronic Kidney Disease Surgical History: Cholecystectomy, Endoscopy - [facility] Procedures (05/11/18) (05/25/17) INSERT OF INFUSION DEV INTO PERITON CAV, PERC ENDO APPROACH (11/08/16) INSERTION OF INFUSION DEV INTO SUP VENA CAVA, PERC APPROACH (05/25/17) IRRIGATION OF PERITON CAV USING DIALYSATE, PERC APPROACH (03/28/17) PERFORMANCE OF BILIARY FILTRATION, MULTIPLE (05/25/17) PERFORMANCE OF URINARY FILTRATION, SINGLE (12/31/16) PLAIN RADIOGRAPHY OF BILE DUCTS USING OTHER CONTRAST (11/29/16) REMOVE VAD RESERVOIR FROM UP EXTREM SUBCU/FASCIA, PERC (12/30/17) RESECTION OF GALLBLADDER, PERCUTANEOUS ENDOSCOPIC APPROACH (11/29/16) Family History: States: Unknown Family Hx - Social History Hx Alcohol Use: No Hx Substance Use: No - Immunization History Hx Tetanus Toxoid Vaccination: Yes Hx Influenza Vaccination: Yes Hx Pneumococcal Vaccination: Yes Review Of Systems Constitutional: Negative for: Fever, Chills, Sweats Eyes: Negative for: Pain, Vision Change ENT: Negative for: Ear Pain, Ear Discharge, Nose Pain Cardiovascular: Positive for: Chest Pain. Negative for: Palpitations, Orthopnea Respiratory: Negative for: Cough, Shortness of Breath Gastrointestinal: Positive for: Nausea, Vomiting, Abdominal Pain. Negative for: Diarrhea, Constipation, Melena Genitourinary: Negative for: Dysuria, Frequency Musculoskeletal: Negative for: Neck Pain Skin: Negative for: Rash, Lesions Neurological: Negative for: Weakness, Numbness Physical Exam - Physical Exam Appears: Non-toxic, Other (in pain) Skin: Normal Color, Warm Head: Atraumatic, Normacephalic Eye(s): bilateral: Normal Inspection, PERRL, EOMI Nose: Normal Oral Mucosa: Moist Tongue: Normal Appearing Throat: Normal Neck: Normal, Normal ROM, Supple, Other (no meningeal signs) Chest: Symmetrical Cardiovascular: Other (tachycardic) Gastrointestinal/Abdominal: Soft, Tenderness (epigastric), No Organomegaly, No Mass, No Distention, No Guarding, No Rebound, No Hernia Back: Normal Inspection, No CVA Tenderness, No Vertebral Tenderness Extremity: Normal ROM, No Tenderness Neurological/Psych: Oriented x3, Normal Speech, Normal Cognition Gait: Steady ED Course And Treatment - Laboratory Results Result Diagrams: 06/08/18 15:58 06/08/18 15:58 ECG: Interpreted By Me, Viewed By Me ECG Rhythm: Sinus Rhythm Interpretation Of ECG: Normal Sinus rhythm at rate 81bpm. No STEMI Rate From EC O2 Sat by Pulse Oximetry: 100 Medical Decision Making Medical Decision Makin yr old F w/ hx Anemia, Anxiety, CHF, Depression, Choleycystectomy, HTN, Pancreatitis, ESRD on HD MWF via subclavian HD catheter, gastritis p/w abdominal pain and chest pain. Abdominal pain likely gastritis, chest pain likely GERD associated refered pain. Was seen earlier for similiar pain. Will rx. Pressure elevated pt notes she has been vomiting her htn meds. will control bp here. No LAUREN. Pending imaging and labs. imaging largely unremarkable except ovarian fibroid vs mass vs toa . Pt afebrile however, denies any pelvis pain or high risk behavior. resting comfortably, Likely incidental findings given continued abd pain and elevated BP, now controlled consulted Dr. Zuleta Appreciate consult w/ Dr. Zuleta- to admit to his service. Pt in NAD, pressure remains stable Disposition - Disposition Disposition Time: 17:48 Condition: GOOD Forms: [facility] (Greenlandic) - Clinical Impression Clinical Impression: Intractable abdominal pain
[2018-06-08] MEDS ORDERED: Labetalol 25mg/5ml Syringe IVP STA ×2 (15:30→16:35)
[2018-06-08] MEDS ORDERED: Labetalol 5mg/ml (4ml) ONE ×2 (15:46→16:43)
[2018-06-08 16:07] LABS: BASO # 0.1 K/uL (0.0-0.2); BASO % 0.4 % (0.0-2.0); HEMOGLOBIN 12.6 g/dL (11.0-16.0); LYMPH # 0.7 K/uL (1.0-4.3); LYMPH % 5.4 % (20.0-40.0); MEAN CELL VOLUME 92.8 fL (81.0-99.0); MEAN CORPUSCULAR HEMOGLOBIN 30.5 pg (27.0-31.0); MEAN CORPUSCULAR HGB CONC 32.9 g/dL (33.0-37.0); MEAN PLATELET VOLUME 7.1 fL (7.2-11.7); MONO # 0.3 K/uL (0.0-0.8); MONO % 2.2 % (0.0-10.0); PLATELET COUNT 296 K/uL (130-400); RBC 4.12 Mil/uL (3.80-5.20); RED CELL DISTRIBUTION WIDTH 13.7 % (11.5-14.5); WHITE BLOOD COUNT 13.1 K/uL (4.8-10.8)
[2018-06-08 16:17] LABS: VENOUS BLOOD GAS BASE EXCESS -2.9 mmol/L (0.0-2.0); VENOUS BLOOD GAS PCO2 47 mmHg (40-60); VENOUS BLOOD GAS PO2 40 mm/Hg (30-55); VENOUS BLOOD PH 7.31 (7.32-7.43)
[2018-06-08 16:40] LABS: ALB/GLOB RATIO 1.8 (1.0-2.1); ALBUMIN 4.8 g/dL (3.5-5.0); CALCIUM 9.2 mg/dl (8.6-10.4)
[2018-06-08 16:44] LABS: TROPONIN I 0.074 ng/mL (0.00-0.120)
--- NOTE | 2018-06-08 16:50 | CT ---
PROCEDURE: CT Abdomen and Pelvis without Oral or IV contrast. HISTORY: abd pain COMPARISON: CT abdomen and pelvis without contrast performed 08/23/17 TECHNIQUE: Contiguous axial images of the abdomen and pelvis. No oral or IV contrast administered. Coronal and Sagittal reformats generated and reviewed. Radiation dose: Total exam DLP = 795.95 mGy-cm. This CT exam was performed using one or more of the following dose reduction techniques: Automated exposure control, adjustment of the mA and/or kV according to patient size, and/or use of iterative reconstruction technique. FINDINGS: There is limited evaluation of the solid organs without the administration of IV contrast. LOWER THORAX: No visible consolidation, pleural effusion, or pneumothorax. Partially imaged cardiomegaly. Trace pericardial effusion. Moderate-sized hiatal hernia. LIVER: Hepatic calcification, likely granuloma. GALLBLADDER AND BILE DUCTS: Cholecystectomy. PANCREAS: Unremarkable unenhanced appearance. SPLEEN: Splenomegaly. ADRENALS: Bilateral adrenal gland hypertrophy. KIDNEYS AND URETERS: No hydronephrosis or obstructing renal calculus. Punctate nonobstructing left renal calculi (less than 2 mm). BLADDER: The urinary bladder appears unremarkable. REPRODUCTIVE: Heterogeneous appearance of the uterus including calcified uterine mass presumably due to fibroid. Multiple bilateral adnexal masses are identified, possibly cyst. Recommend correlation with pelvic ultrasound. Differential diagnosis includes ovarian neoplasm, multiple ovarian cyst, tubo-ovarian abscess. APPENDIX: The appendix appears within normal limits of caliber. No secondary signs of acute appendicitis. BOWEL: The stomach is nondistended. Lack of oral contrast limits evaluation for bowel pathology. The bowel loops appear within normal limits of caliber without evidence of intestinal obstruction. Moderate constipation. PERITONEUM: No significant free fluid. No definite free air. LYMPH NODES: No bulky lymphadenopathy identified. VASCULATURE: Atherosclerotic calcifications of the aorta. No aortic aneurysm. BONES: Diffusely increased attenuation of the osseous structures may reflect renal osteodystrophy. OTHER FINDINGS: None. IMPRESSION: Heterogeneous appearance of the uterus including calcified uterine mass presumably due to fibroid. Multiple bilateral adnexal masses are identified, possibly cyst. Recommend correlation with pelvic ultrasound. Differential diagnosis includes ovarian neoplasm, multiple ovarian cyst, tubo-ovarian abscess. Diffuse increased attenuation of the osseous structures may reflect renal osteodystrophy. Correlate clinically. Moderate-sized hiatal hernia. Moderate constipation. Additional findings as above.
--- NOTE | 2018-06-08 17:04 | RAD ---
HISTORY: cp / abd pain COMPARISON: Chest x-ray performed 06/06/18 TECHNIQUE: Chest PA and lateral FINDINGS: Right IJ approach dialysis catheter with tips at the SVC/cavoatrial junction. LUNGS: No focal consolidation. Please note that chest x-ray has limited sensitivity for the detection of pulmonary masses. PLEURA: No significant pleural effusion identified. No definite pneumothorax . CARDIOVASCULAR: Heart size appears top normal. Atherosclerotic calcifications. OSSEOUS STRUCTURES: No acute osseous abnormality identified. VISUALIZED UPPER ABDOMEN: Right upper quadrant surgical clips. OTHER FINDINGS: None. IMPRESSION: Right IJ approach dialysis catheter with tips at the SVC/cavoatrial junction. No focal consolidation.
[2018-06-08 17:23] LABS: LYMPHOCYTE 8 % (20-40); MONOCYTE 1 % (0-10); NEUTROPHIL 91 % (50-75); PLATELET ESTIMATE NORMAL (NORMAL); TOTAL CELLS COUNTED 100
[2018-06-08 17:24] LABS: HYPOCHROMIC SLIGHT; MICROCYTOSIS SLIGHT
[2018-06-08 18:04] LABS: SQUAMOUS EPITHIAL 5 /hpf (0-5); URINE BACTERIA RARE (<OCC); URINE BILIRUBIN NEGATIVE (NEGATIVE); URINE BLOOD NEGATIVE (NEGATIVE); URINE CLARITY Hazy (Clear); URINE COLOR Yellow (YELLOW); URINE GLUCOSE (UA) 1+ mg/dL (Normal); URINE LEUKOCYTE ESTERASE NEG Leu/uL (Negative); URINE PROTEIN 3+ mg/dL (NEGATIVE); URINE UROBILINOGEN NORMAL mg/dL (0.2-1.0)
--- NOTE | 2018-06-09 01:47 | CP.PCM.CON ---
History of Present Illness - History of Present Illness History of Present Illness: General Surgery Re: Abdominal pain HPI: 38F complaining of gastritis-like abdominal and chest pain. Pt was just seen in the ED for abdominal pain and vomiting. After she was D/Keith, she started having severe abdominal pain so she returned to the ED. The abdominal pain feels like her previous GERD, and is stabbing and intermittent. it has been ongoing for years. She notes multiple episodes of bilious emesis, non bloody, non dark. Denies any fall or trauma, headache, neck stiffness. No constipation or diarrhea. No fever, chills or night sweats. Pt cannot pinpoint any inciting factors. Currently without complaints. PMH: CHF, HTN, ND, ESRD, depression, anxiety, hx pancreatitis, PSH: AVF (multiple), Cholecystectomy SH: Uses Tobacco. No EtOH or drug use FH: non-contributory All: NKDA Meds: See MAR Review of Systems - Review of Systems All systems: reviewed and no additional remarkable complaints except (as per HPI) Past Patient History - Infectious Disease Hx of Infectious Diseases: None - Past Medical History & Family History Past Medical History?: Yes - Past Social History Smoking Status: Current Some Days Smoker - CARDIAC Hx Congestive Heart Failure: Yes Hx Hypertension: Yes Hx Peripheral Edema: Yes - PULMONARY Hx Pneumonia: Yes - NEUROLOGICAL Hx Neurological Disorder: No - HEENT Hx HEENT Problems: Yes Other/Comment: wears glasses - RENAL Hx Chronic Kidney Disease: Yes Hx Dialysis: Yes Type of Dialysis Access: rt chest permacath Date of Last Dialysis Treatment: 06/07/18 Hx Kidney Stones: Yes - ENDOCRINE/METABOLIC Hx Endocrine Disorders: No - HEMATOLOGICAL/ONCOLOGICAL Hx Anemia: Yes - INTEGUMENTARY Hx Dermatological Problems: Yes Other/Comment: SCARRING TO LEFT UPPER ARM DUE TO PLACEMENT OF SHUNT. NF.3X HAD SURGERY. - MUSCULOSKELETAL/RHEUMATOLOGICAL Hx Arthritis: Yes (L HIP) Hx Falls: No - GASTROINTESTINAL Hx Gall Bladder Disease: Yes (CHOLECYSTECTOMY) Hx Pancreatitis: Yes - GENITOURINARY/GYNECOLOGICAL Hx Genitourinary Disorders: Yes - PSYCHIATRIC Hx Anxiety: Yes Hx Depression: Yes Hx Substance Use: No - SURGICAL HISTORY Hx Cholecystectomy: Yes Other/Comment: 2 failed fistula left arm,Left wrist fistula not working 2 weeks ago - ANESTHESIA Hx Anesthesia: Yes Hx Anesthesia Reactions: No Hx Malignant Hyperthermia: No Meds Allergies/Adverse Reactions: Allergies Allergy/AdvReac Type Severity Reaction Status Date / Time No Known Allergies Allergy Verified 06/06/18 08:06 - Medications Medications: Current Medications Alprazolam (Xanax) 0.5 mg PO TID PRN PRN Reason: Anxiety Amlodipine Besylate (Norvasc) 10 mg PO DAILY [facility] Cinacalcet (Sensipar) 30 mg PO 1800 [facility] Last Admin: 06/08/18 20:00 Dose: 30 mg Clonidine HCl (Catapres) 0.3 mg PO BID [facility] Hydralazine HCl (Apresoline) 100 mg PO BID [facility] Labetalol HCl (Trandate) 300 mg PO BID [facility] Morphine Sulfate (Morphine) 2 mg IVP Q4 PRN PRN Reason: Pain, moderate (4-7) Pantoprazole Sodium (Protonix Inj) 40 mg IVP DAILY [facility] Zolpidem Tartrate (Ambien) 5 mg PO HS PRN PRN Reason: Insomnia Physical Exam - Constitutional Appears: Non-toxic, No Acute Distress - Head Exam Head Exam: ATRAUMATIC, NORMOCEPHALIC - Eye Exam Eye Exam: EOMI. absent: Scleral icterus - ENT Exam ENT Exam: Mucous Membranes Moist Additional comments: trachea midline - Neck Exam Neck exam: Positive for: Full Rom. Negative for: Tenderness - Respiratory Exam Respiratory Exam: Respiratory Distress, NORMAL BREATHING PATTERN. absent: Accessory Muscle Use - Cardiovascular Exam Cardiovascular Exam: RRR, +S1 - GI/Abdominal Exam GI & Abdominal Exam: Distended, Soft. absent: Firm, Guarding, Hernia, Rebound, Rigid, Tenderness - Rectal Exam Rectal Exam: Deferred - Extremities Exam Extremities exam: Positive for: full ROM, normal capillary refill, pedal pulses present. Negative for: calf tenderness - Back Exam Back exam: absent: CVA tenderness (L), CVA tenderness (R) - Neurological Exam Neurological exam: Alert, Oriented x3 - Skin Skin Exam: Dry, Warm Results - Vital Signs Recent Vital Signs: Last Vital Signs Temp 97.8 F 06/09/18 00:00 Pulse 74 06/09/18 00:00 Resp 20 06/09/18 00:00 BP 135/79 06/09/18 00:00 Pulse Ox 96 06/09/18 00:00 - Labs Result Diagrams: 06/08/18 15:58 06/08/18 15:58 Labs: Laboratory Results - last 24 hr 06/08/18 06/08/18 06/08/18 15:58 15:58 16:10 WBC 13.1 H RBC 4.12 Hgb 12.6 Hct 38.2 MCV 92.8 MCH 30.5 MCHC 32.9 L RDW 13.7 Plt Count 296 MPV 7.1 L Neut % (Auto) 92.0 H Lymph % (Auto) 5.4 L [place] % (Auto) 2.2 Eos % (Auto) 0.0 Baso % (Auto) 0.4 Neut # (Auto) 12.0 H Lymph # (Auto) 0.7 L [place] # (Auto) 0.3 Eos # (Auto) 0.0 Baso # (Auto) 0.1 Neutrophils % (Manual) 91 H Lymphocytes % (Manual) 8 L Monocytes % (Manual) 1 Platelet Estimate Normal Hypochromasia (manual) Slight Microcytosis (manual) Slight pO2 40 VBG pH 7.31 L VBG pCO2 47 VBG HCO3 21.9 VBG Total CO2 25.1 VBG O2 Sat (Calc) 79.6 H VBG Base Excess -2.9 L VBG Potassium 3.4 L Glucose 109 H Lactate 1.9 FiO2 21.0 Sodium 138 139.0 Potassium 3.5 L Chloride 102 105.0 Carbon Dioxide 24 Anion Gap 15 BUN 24 H Creatinine 3.0 H Est GFR ( Amer) 21 Est GFR (Non-Af Amer) 17 Random Glucose 125 H Calcium 9.2 Magnesium 2.0 Total Bilirubin 0.5 AST 31 ALT 21 Alkaline Phosphatase 103 Troponin I 0.0740 Total Protein 7.5 Albumin 4.8 Globulin 2.7 Albumin/Globulin Ratio 1.8 Lipase 137 Venous Blood Potassium 3.4 L Urine Color Urine Clarity Urine pH Ur Specific [place] Urine Protein Urine Glucose (UA) Urine Ketones Urine Blood Urine Nitrate Urine Bilirubin Urine Urobilinogen Ur Leukocyte Esterase Urine WBC (Auto) Urine RBC (Auto) Ur Squamous Epith Cells Urine Bacteria 06/08/18 17:57 WBC RBC Hgb Hct MCV MCH MCHC RDW Plt Count MPV Neut % (Auto) Lymph % (Auto) [place] % (Auto) Eos % (Auto) Baso % (Auto) Neut # (Auto) Lymph # (Auto) [place] # (Auto) Eos # (Auto) Baso # (Auto) Neutrophils % (Manual) Lymphocytes % (Manual) Monocytes % (Manual) Platelet Estimate Hypochromasia (manual) Microcytosis (manual) pO2 VBG pH VBG pCO2 VBG HCO3 VBG Total CO2 VBG O2 Sat (Calc) VBG Base Excess VBG Potassium Glucose Lactate FiO2 Sodium Potassium Chloride Carbon Dioxide Anion Gap BUN Creatinine Est GFR ( Amer) Est GFR (Non-Af Amer) Random Glucose Calcium Magnesium Total Bilirubin AST ALT Alkaline Phosphatase Troponin I Total Protein Albumin Globulin Albumin/Globulin Ratio Lipase Venous Blood Potassium Urine Color Yellow Urine Clarity Hazy Urine pH 7.0 Ur Specific [place] 1.012 Urine Protein 3+ H Urine Glucose (UA) 1+ Urine Ketones Negative Urine Blood Negative Urine Nitrate Negative Urine Bilirubin Negative Urine Urobilinogen Normal Ur Leukocyte Esterase Neg Urine WBC (Auto) 3 Urine RBC (Auto) 1 Ur Squamous Epith Cells 5 Urine Bacteria Rare - Imaging and Cardiology CT scan - abdomen Status: Image reviewed by me, Report reviewed by me Assessment & Plan - Assessment and Plan (Free Text) Assessment: 38F with abdominal pain of unknown origin Plan: Recommend Stool softeners for constipation. Consider eval for gastroparesis or sphincter of Oddi dysfunction No planned surgical interventions at this time. F/U labs Will D/W Dr. Loretta Bentley PGY4
--- NOTE | 2018-06-09 07:18 | CP.PCM.PN ---
Subjective - Date & Time of Evaluation Date of Evaluation: 06/09/18 Time of Evaluation: 07:00 - Subjective Subjective: PGY2- Progress Note for Dr. Zuleta Patient is a 38 year old female with PMHx of anemia, anxiety, depression, CHF, HTN, ESRD on HD MWF who presents for abdominal pain and vomiting. Patient seen and examined at the bedside and in no acute distress. Patient says her abdominal pain is better today and describes at as "burning" sensation in her mid abdomen which she rates 5/10. Patient denies any nausea, vomiting, constipation, or diarrhea. Patient has not had a bowel movement in a few days, but says this is normal for her. PMHx: anemia, anxiety, depression, CHF, HTN, ESRD on HD MWF PShx: cholecystectomy 2017, multiple (4) L AVF, permacath FHx: FHx: father with COPD, mother of DM complications in her late 40s. DM runs in the family. SocHx: 5 cigarettes a day, denies alcohol or drugs Objective - Vital Signs/Intake and Output Vital Signs (last 24 hours): Temp Pulse Resp BP Pulse Ox 97.8 F 74 20 135/79 96 06/09/18 00:00 06/09/18 00:00 06/09/18 00:00 06/09/18 00:00 06/09/18 00:00 - Medications Medications: Current Medications Alprazolam (Xanax) 0.5 mg PO TID PRN PRN Reason: Anxiety Amlodipine Besylate (Norvasc) 10 mg PO DAILY [facility] Cinacalcet (Sensipar) 30 mg PO 1800 ISABELLA Last Admin: 06/08/18 20:00 Dose: 30 mg Clonidine HCl (Catapres) 0.3 mg PO BID [facility] Hydralazine HCl (Apresoline) 100 mg PO BID [facility] Labetalol HCl (Trandate) 300 mg PO BID [facility] Morphine Sulfate (Morphine) 2 mg IVP Q4 PRN PRN Reason: Pain, moderate (4-7) Pantoprazole Sodium (Protonix Inj) 40 mg IVP DAILY [facility] Zolpidem Tartrate (Ambien) 5 mg PO HS PRN PRN Reason: Insomnia - Labs Labs: 06/08/18 15:58 06/08/18 15:58 - Constitutional Appears: Non-toxic, No Acute Distress - Head Exam Head Exam: ATRAUMATIC, NORMAL INSPECTION, NORMOCEPHALIC - Eye Exam Eye Exam: EOMI, Normal appearance - ENT Exam ENT Exam: Mucous Membranes Moist - Respiratory Exam Respiratory Exam: Clear to Ausculation Bilateral, NORMAL BREATHING PATTERN. absent: Rales, Rhonchi, Wheezes, Respiratory Distress, Stridor - Cardiovascular Exam Cardiovascular Exam: REGULAR RHYTHM, RRR, +S1, +S2 - GI/Abdominal Exam GI & Abdominal Exam: Soft, Tenderness, Normal Bowel Sounds - Extremities Exam Extremities Exam: Normal Inspection. absent: Pedal Edema, Tenderness - Neurological Exam Neurological Exam: Alert, Awake, Oriented x3 - Psychiatric Exam Psychiatric exam: Normal Affect, Normal Mood - Skin Skin Exam: Intact, Normal Color, Warm Assessment and Plan - Assessment and Plan (Free Text) Assessment: Abdominal pain Abd CT (06/08/18): Heterogeneous appearance of the uterus including calcified uterine mass presumably due to fibroid. Multiple bilateral adnexal masses are identified, possibly cysts. Recommend correlation with pelvic u/s. Differential diagnosis includes ovarian neoplasm, multiple ovarian cyst, tubo-ovarian abscess. Diffuse increased attenuation of the osseous structures may reflect renal osteodystrophy. Moderate- sized hiatal hernia. Moderate constipation. abd/ pelvis / transvag u/s: myomatous uterus, bilateral simple and septated/complex cysts. Unilateral, left hydrosalpinx. GI consulted, Dr. Jensen, help appreciated Protonix 40mg ivp daily Morphine 2mg ivp q4h prn f/u CA 125, CEA HTN Clonidine .3mg po BID Norvasc 10mg po daily Apresoline 100mg po BID Labetalol 300mg po BID Depression/Anxiety Xanax .5mg po TID PRN Insomnia Ambien 5mg po HS PRN Prophylactic Measures SCDs Protonix 40mg ivp daily renal diet Discussed with Dr. Zuleta.
--- NOTE | 2018-06-09 08:55 | CP.PCM.CON ---
History of Present Illness - History of Present Illness History of Present Illness: renal consult for management of ESRD 38 yo H female, ESRD,HTN, anemia, CHF, depression, pancreatitis, presents with abdominal pain and bilious vomiting. Frequent admits to various hospitals for same. Hx of failed PD, failed AV access. Last HD on Thursday via right permcath. No vomiting now, on regular diet, says abdomen feels "sore." CT imaging with ovarian cysts and fibroid uterus. HD scheduled for today. No fever or chills. Continues to make urine. Active smoker. Review of Systems - Constitutional Constitutional: absent: Fever, Lethargy - EENT Eyes: absent: Change in Vision, Discharge Nose/Mouth/Throat: absent: Epistaxis, Nasal Congestion - Cardiovascular Cardiovascular: absent: Chest Pain, Chest Pain with Activity - Respiratory Respiratory: absent: Cough, Dyspnea - Gastrointestinal Gastrointestinal: Abdominal Pain, Nausea, Vomiting - Genitourinary Genitourinary: absent: Difficulty Urinating, Dysuria - Psychiatric Psychiatric: Depression. absent: Confusion - Hematologic/Lymphatic Hematologic: absent: Easy Bleeding, Easy Bruising Past Patient History - Infectious Disease Hx of Infectious Diseases: None - Past Medical History & Family History Past Medical History?: Yes - Past Social History Smoking Status: Current Some Days Smoker - CARDIAC Hx Congestive Heart Failure: Yes Hx Hypertension: Yes Hx Peripheral Edema: Yes - PULMONARY Hx Pneumonia: Yes - NEUROLOGICAL Hx Neurological Disorder: No - HEENT Hx HEENT Problems: Yes Other/Comment: wears glasses - RENAL Hx Chronic Kidney Disease: Yes Hx Dialysis: Yes Type of Dialysis Access: rt chest permacath Date of Last Dialysis Treatment: 06/07/18 Hx Kidney Stones: Yes - ENDOCRINE/METABOLIC Hx Endocrine Disorders: No - HEMATOLOGICAL/ONCOLOGICAL Hx Anemia: Yes - INTEGUMENTARY Hx Dermatological Problems: Yes Other/Comment: SCARRING TO LEFT UPPER ARM DUE TO PLACEMENT OF SHUNT. NF.3X HAD SURGERY. - MUSCULOSKELETAL/RHEUMATOLOGICAL Hx Arthritis: Yes (L HIP) Hx Falls: No - GASTROINTESTINAL Hx Gall Bladder Disease: Yes (CHOLECYSTECTOMY) Hx Pancreatitis: Yes - GENITOURINARY/GYNECOLOGICAL Hx Genitourinary Disorders: Yes - PSYCHIATRIC Hx Anxiety: Yes Hx Depression: Yes Hx Substance Use: No - SURGICAL HISTORY Hx Cholecystectomy: Yes Other/Comment: 2 failed fistula left arm,Left wrist fistula not working 2 weeks ago - ANESTHESIA Hx Anesthesia: Yes Hx Anesthesia Reactions: No Hx Malignant Hyperthermia: No Meds Allergies/Adverse Reactions: Allergies Allergy/AdvReac Type Severity Reaction Status Date / Time No Known Allergies Allergy Verified 06/06/18 08:06 - Medications Medications: Current Medications Alprazolam (Xanax) 0.5 mg PO TID PRN PRN Reason: Anxiety Amlodipine Besylate (Norvasc) 10 mg PO DAILY [facility] Cinacalcet (Sensipar) 30 mg PO 1800 ISABELLA Last Admin: 06/08/18 20:00 Dose: 30 mg Clonidine HCl (Catapres) 0.3 mg PO BID [facility] Heparin Sodium (Porcine) (Heparin) 5,000 units SC Q12 ISABELLA Hydralazine HCl (Apresoline) 100 mg PO BID [facility] Labetalol HCl (Trandate) 300 mg PO BID [facility] Morphine Sulfate (Morphine) 2 mg IVP Q4 PRN PRN Reason: Pain, moderate (4-7) Pantoprazole Sodium (Protonix Inj) 40 mg IVP DAILY [facility] Zolpidem Tartrate (Ambien) 5 mg PO HS PRN PRN Reason: Insomnia Physical Exam - Constitutional Appears: Non-toxic, No Acute Distress - Head Exam Head Exam: ATRAUMATIC, NORMAL INSPECTION - Eye Exam Eye Exam: EOMI, Normal appearance - ENT Exam ENT Exam: Mucous Membranes Moist - Neck Exam Neck exam: Positive for: Full Rom. Negative for: Lymphadenopathy - Respiratory Exam Respiratory Exam: Clear to Auscultation Bilateral. absent: Accessory Muscle Use - Cardiovascular Exam Cardiovascular Exam: REGULAR RHYTHM. absent: Rubs - GI/Abdominal Exam GI & Abdominal Exam: Distended, Normal Bowel Sounds. absent: Guarding, Tenderness - Extremities Exam Extremities exam: Negative for: pedal edema - Neurological Exam Neurological exam: Alert, Oriented x3 - Psychiatric Exam Psychiatric exam: Normal Affect, Normal Mood Results - Vital Signs Recent Vital Signs: Last Vital Signs Temp 98.1 F 06/09/18 08:37 Pulse 79 06/09/18 08:37 Resp 20 06/09/18 08:37 BP 167/103 H 06/09/18 08:37 Pulse Ox 98 06/09/18 08:37 - Labs Result Diagrams: 06/08/18 15:58 06/08/18 15:58 Labs: Laboratory Results - last 24 hr 06/08/18 06/08/18 06/08/18 15:58 15:58 16:10 WBC 13.1 H RBC 4.12 Hgb 12.6 Hct 38.2 MCV 92.8 MCH 30.5 MCHC 32.9 L RDW 13.7 Plt Count 296 MPV 7.1 L Neut % (Auto) 92.0 H Lymph % (Auto) 5.4 L [place] % (Auto) 2.2 Eos % (Auto) 0.0 Baso % (Auto) 0.4 Neut # (Auto) 12.0 H Lymph # (Auto) 0.7 L [place] # (Auto) 0.3 Eos # (Auto) 0.0 Baso # (Auto) 0.1 Neutrophils % (Manual) 91 H Lymphocytes % (Manual) 8 L Monocytes % (Manual) 1 Platelet Estimate Normal Hypochromasia (manual) Slight Microcytosis (manual) Slight pO2 40 VBG pH 7.31 L VBG pCO2 47 VBG HCO3 21.9 VBG Total CO2 25.1 VBG O2 Sat (Calc) 79.6 H VBG Base Excess -2.9 L VBG Potassium 3.4 L Glucose 109 H Lactate 1.9 FiO2 21.0 Sodium 138 139.0 Potassium 3.5 L Chloride 102 105.0 Carbon Dioxide 24 Anion Gap 15 BUN 24 H Creatinine 3.0 H Est GFR ( Amer) 21 Est GFR (Non-Af Amer) 17 Random Glucose 125 H Calcium 9.2 Magnesium 2.0 Total Bilirubin 0.5 AST 31 ALT 21 Alkaline Phosphatase 103 Troponin I 0.0740 Total Protein 7.5 Albumin 4.8 Globulin 2.7 Albumin/Globulin Ratio 1.8 Lipase 137 Venous Blood Potassium 3.4 L Urine Color Urine Clarity Urine pH Ur Specific [place] Urine Protein Urine Glucose (UA) Urine Ketones Urine Blood Urine Nitrate Urine Bilirubin Urine Urobilinogen Ur Leukocyte Esterase Urine WBC (Auto) Urine RBC (Auto) Ur Squamous Epith Cells Urine Bacteria 06/08/18 17:57 WBC RBC Hgb Hct MCV MCH MCHC RDW Plt Count MPV Neut % (Auto) Lymph % (Auto) [place] % (Auto) Eos % (Auto) Baso % (Auto) Neut # (Auto) Lymph # (Auto) [place] # (Auto) Eos # (Auto) Baso # (Auto) Neutrophils % (Manual) Lymphocytes % (Manual) Monocytes % (Manual) Platelet Estimate Hypochromasia (manual) Microcytosis (manual) pO2 VBG pH VBG pCO2 VBG HCO3 VBG Total CO2 VBG O2 Sat (Calc) VBG Base Excess VBG Potassium Glucose Lactate FiO2 Sodium Potassium Chloride Carbon Dioxide Anion Gap BUN Creatinine Est GFR ( Amer) Est GFR (Non-Af Amer) Random Glucose Calcium Magnesium Total Bilirubin AST ALT Alkaline Phosphatase Troponin I Total Protein Albumin Globulin Albumin/Globulin Ratio Lipase Venous Blood Potassium Urine Color Yellow Urine Clarity Hazy Urine pH 7.0 Ur Specific [place] 1.012 Urine Protein 3+ H Urine Glucose (UA) 1+ Urine Ketones Negative Urine Blood Negative Urine Nitrate Negative Urine Bilirubin Negative Urine Urobilinogen Normal Ur Leukocyte Esterase Neg Urine WBC (Auto) 3 Urine RBC (Auto) 1 Ur Squamous Epith Cells 5 Urine Bacteria Rare Assessment & Plan - Assessment and Plan (Free Text) Assessment: maint HD to be scheduled today Ask Vascular to see for new [employer] and GI to evaluate chronic abdominal pain
--- NOTE | 2018-06-09 09:25 | CP.PCM.CON ---
History of Present Illness - History of Present Illness History of Present Illness: GI Consult Note for Dr. Jensen CC: abdominal pain and vomiting HPI: 38 y/o female with PMHx of poorly controlled HTN, ESRD on HD MWF, anxiety, and recurrent abdominal pain and vomiting presented to the ED 06/08 for abdominal pain and vomiting. She reports that the vomiting began shortly after eating micronesian fries and cheese at a bowling alley. Patient states she has had such episodes already "50 times" in the past and still does not know the cause. Patient is regularly followed by Dr. Zuleta (PMD), Dr. Burgos (surgery for her HD access), and Dr. Jordan (nephro). Patient states that her pain now is a 4/10 pain in her central abdomen. It is exacerbated when eating acidic foods such as tomato sauce, as well as foods high in fat. The pain is not positional. The pain was constant and worse in the ED that she was unable to sit still there. The only thing that she knows of that relieves the pain is morphine. She did not try NSAIDs due to her kidney disease and she doubts that home tylenol would work since home percocet did not even work. Patient at the moment denies vomiting. Last vomit was yesterday 06/08. Patient tolerated breakfast this morning without issues but still with persistent abdominal pain. Patient will be getting HD today, 06/09, through her R IJ catheter. Patient denies chest pain, SOB, nausea, vomiting, or diarrhea. Patient's baseline BM is once every 3-5 days. Last time she had BM was about 3 days ago. She denies feeling constipated or bloated. BM was unremarkable last time. GI history/past imaging: -Endoscopy: 11/[address] Cruz. Erythema of gastric body and antrum. Biopsy of both body and antrum - pathology report showed mild chronic inflammation and reactive epithelial changes. 1 cm hiatal hernia. Normal esophagus, cardia, fundus, and duodenum. -US on 01/26 (when admitted for HTN urgency SBP > 200s): post cholecystectomy with dilated common duct 10.6mm, left kidney nonobstructing calculus. -CT w/ PO contrast 11/25: complicated ovarian cysts, posterior wall fibroid -CT w/o contrast 10/26: lytic lesions, non specific mets or multiple myeloma not excluded. Probable fibroid uterus ROS: as per HPI PMHx: as stated above. Patient also thinks she might have CHF. PSHx: cholecystectomy 2016 FHx: father with COPD, mother of various consequences of severe DM in her late 40s. DM runs in the family. Denies known hx of GI cancers. SocHx: 5 cigarettes a day. Home meds: sensipar 30 mg, ambien 10 mg, xanax 0.5 mg BID PRN, norvasc 10 mg, labetalol 300 mg BID, clonidine 0.3 mg BID, pepcid 20 mg BID Allergies: NKDA Past Patient History - Infectious Disease Hx of Infectious Diseases: None - Past Medical History & Family History Past Medical History?: Yes - Past Social History Smoking Status: Current Some Days Smoker - CARDIAC Hx Congestive Heart Failure: Yes Hx Hypertension: Yes Hx Peripheral Edema: Yes - PULMONARY Hx Pneumonia: Yes - NEUROLOGICAL Hx Neurological Disorder: No - HEENT Hx HEENT Problems: Yes Other/Comment: wears glasses - RENAL Hx Chronic Kidney Disease: Yes Hx Dialysis: Yes Type of Dialysis Access: rt chest permacath Date of Last Dialysis Treatment: 06/07/18 Hx Kidney Stones: Yes - ENDOCRINE/METABOLIC Hx Endocrine Disorders: No - HEMATOLOGICAL/ONCOLOGICAL Hx Anemia: Yes - INTEGUMENTARY Hx Dermatological Problems: Yes Other/Comment: SCARRING TO LEFT UPPER ARM DUE TO PLACEMENT OF SHUNT. NF.3X HAD SURGERY. - MUSCULOSKELETAL/RHEUMATOLOGICAL Hx Arthritis: Yes (L HIP) Hx Falls: No - GASTROINTESTINAL Hx Gall Bladder Disease: Yes (CHOLECYSTECTOMY) Hx Pancreatitis: Yes - GENITOURINARY/GYNECOLOGICAL Hx Genitourinary Disorders: Yes - PSYCHIATRIC Hx Anxiety: Yes Hx Depression: Yes Hx Substance Use: No - SURGICAL HISTORY Hx Cholecystectomy: Yes Other/Comment: 2 failed fistula left arm,Left wrist fistula not working 2 weeks ago - ANESTHESIA Hx Anesthesia: Yes Hx Anesthesia Reactions: No Hx Malignant Hyperthermia: No Meds Allergies/Adverse Reactions: Allergies Allergy/AdvReac Type Severity Reaction Status Date / Time No Known Allergies Allergy Verified 06/06/18 08:06 - Medications Medications: Current Medications Alprazolam (Xanax) 0.5 mg PO TID PRN PRN Reason: Anxiety Amlodipine Besylate (Norvasc) 10 mg PO DAILY [facility] Cinacalcet (Sensipar) 30 mg PO 1800 [facility] Last Admin: 06/08/18 20:00 Dose: 30 mg Clonidine HCl (Catapres) 0.3 mg PO BID [facility] Heparin Sodium (Porcine) (Heparin) 5,000 units SC Q12 [facility] Hydralazine HCl (Apresoline) 100 mg PO BID [facility] Labetalol HCl (Trandate) 300 mg PO BID [facility] Morphine Sulfate (Morphine) 2 mg IVP Q4 PRN PRN Reason: Pain, moderate (4-7) Pantoprazole Sodium (Protonix Inj) 40 mg IVP DAILY [facility] Zolpidem Tartrate (Ambien) 5 mg PO HS PRN PRN Reason: Insomnia Physical Exam - Constitutional Appears: Well, Non-toxic - Head Exam Head Exam: ATRAUMATIC, NORMAL INSPECTION - Eye Exam Eye Exam: EOMI, Normal appearance - Neck Exam Neck exam: Positive for: Normal Inspection - Respiratory Exam Respiratory Exam: Clear to Auscultation Bilateral, NORMAL BREATHING PATTERN - Cardiovascular Exam Cardiovascular Exam: REGULAR RHYTHM - GI/Abdominal Exam GI & Abdominal Exam: Normal Bowel Sounds, Soft, Tenderness (epigastric tenderness to palpation, reproduces the pain). absent: Distended, Guarding, Rebound - Extremities Exam Extremities exam: Positive for: normal inspection. Negative for: calf tenderness, tenderness - Neurological Exam Neurological exam: Alert, Oriented x3 - Psychiatric Exam Psychiatric exam: Normal Affect, Normal Mood - Skin Skin Exam: Dry, Intact, Normal Color, Warm Results - Vital Signs Recent Vital Signs: Last Vital Signs Temp 98.1 F 06/09/18 08:37 Pulse 79 06/09/18 08:37 Resp 20 06/09/18 08:37 BP 167/103 H 06/09/18 08:37 Pulse Ox 98 06/09/18 08:37 - Labs Result Diagrams: 06/09/18 11:31 06/09/18 11:31 Labs: Laboratory Results - last 24 hr 06/08/18 06/08/18 06/08/18 15:58 15:58 16:10 WBC 13.1 H RBC 4.12 Hgb 12.6 Hct 38.2 MCV 92.8 MCH 30.5 MCHC 32.9 L RDW 13.7 Plt Count 296 MPV 7.1 L Neut % (Auto) 92.0 H Lymph % (Auto) 5.4 L Park % (Auto) 2.2 Eos % (Auto) 0.0 Baso % (Auto) 0.4 Neut # (Auto) 12.0 H Lymph # (Auto) 0.7 L Park # (Auto) 0.3 Eos # (Auto) 0.0 Baso # (Auto) 0.1 Neutrophils % (Manual) 91 H Lymphocytes % (Manual) 8 L Monocytes % (Manual) 1 Platelet Estimate Normal Hypochromasia (manual) Slight Microcytosis (manual) Slight pO2 40 VBG pH 7.31 L VBG pCO2 47 VBG HCO3 21.9 VBG Total CO2 25.1 VBG O2 Sat (Calc) 79.6 H VBG Base Excess -2.9 L VBG Potassium 3.4 L Glucose 109 H Lactate 1.9 FiO2 21.0 Sodium 138 139.0 Potassium 3.5 L Chloride 102 105.0 Carbon Dioxide 24 Anion Gap 15 BUN 24 H Creatinine 3.0 H Est GFR ( Amer) 21 Est GFR (Non-Af Amer) 17 Random Glucose 125 H Calcium 9.2 Magnesium 2.0 Total Bilirubin 0.5 AST 31 ALT 21 Alkaline Phosphatase 103 Troponin I 0.0740 Total Protein 7.5 Albumin 4.8 Globulin 2.7 Albumin/Globulin Ratio 1.8 Lipase 137 Venous Blood Potassium 3.4 L Urine Color Urine Clarity Urine pH Ur Specific [place] Urine Protein Urine Glucose (UA) Urine Ketones Urine Blood Urine Nitrate Urine Bilirubin Urine Urobilinogen Ur Leukocyte Esterase Urine WBC (Auto) Urine RBC (Auto) Ur Squamous Epith Cells Urine Bacteria 06/08/18 17:57 WBC RBC Hgb Hct MCV MCH MCHC RDW Plt Count MPV Neut % (Auto) Lymph % (Auto) Park % (Auto) Eos % (Auto) Baso % (Auto) Neut # (Auto) Lymph # (Auto) Park # (Auto) Eos # (Auto) Baso # (Auto) Neutrophils % (Manual) Lymphocytes % (Manual) Monocytes % (Manual) Platelet Estimate Hypochromasia (manual) Microcytosis (manual) pO2 VBG pH VBG pCO2 VBG HCO3 VBG Total CO2 VBG O2 Sat (Calc) VBG Base Excess VBG Potassium Glucose Lactate FiO2 Sodium Potassium Chloride Carbon Dioxide Anion Gap BUN Creatinine Est GFR ( Amer) Est GFR (Non-Af Amer) Random Glucose Calcium Magnesium Total Bilirubin AST ALT Alkaline Phosphatase Troponin I Total Protein Albumin Globulin Albumin/Globulin Ratio Lipase Venous Blood Potassium Urine Color Yellow Urine Clarity Hazy Urine pH 7.0 Ur Specific [place] 1.012 Urine Protein 3+ H Urine Glucose (UA) 1+ Urine Ketones Negative Urine Blood Negative Urine Nitrate Negative Urine Bilirubin Negative Urine Urobilinogen Normal Ur Leukocyte Esterase Neg Urine WBC (Auto) 3 Urine RBC (Auto) 1 Ur Squamous Epith Cells 5 Urine Bacteria Rare Assessment & Plan - Assessment and Plan (Free Text) Assessment: 38 y/o female with PMHx of poorly controlled HTN, ESRD on HD MWF, anxiety, and recurrent abdominal pain and vomiting presented to the ED 06/08 for abdominal pain and vomiting. Vomiting has resolved and patient currently on the medicine floor. Recurrent abdominal pain -epigastric and exacerbated with palpation. Differential includes GERD, gastritis, and less likely gastroparesis and pancreatitis. Patient also s/p cholecystectomy. Lipase, LFTs, and Tbili wnl on admission. Abdominal pain could also have LAUNDRY ASSISTANT component considering imaging results (see below). -CTAP 06/08: calcified uterine mass, ovarian cyst, moderate sized hiatal hernia, moderate constipation (prior imaging positive for uterine fibroid and complicated ovarian cysts) -CXR 06/08: no focal consolidation. R IJ catheter viewed. -TVUS 06/08: cough myomatous uterus, b/l complex cysts, L hydrosalpinx -f/u A1c, CEA, CA 125 -avoid acidic and fatty foods, currently on renal diet case discussed with Dr. Mikye Sorto PGY1
[2018-06-09] MEDS: Morphine 4 MG/ML VIAL IVP PRN ×3 (10:50→22:02)
[2018-06-09] MEDS: Labetalol Hydrochloride 300 mg Tab PO SCH ×2 (10:58→17:50)
[2018-06-09 11:48] LABS: BASO # 0.1 K/uL (0.0-0.2); BASO % 0.7 % (0.0-2.0); EOS # 0.1 K/uL (0.0-0.7); EOS % 0.7 % (0.0-4.0); HEMOGLOBIN 10.8 g/dL (11.0-16.0); LYMPH # 1.6 K/uL (1.0-4.3); LYMPH % 15.8 % (20.0-40.0); MEAN CELL VOLUME 93.3 fL (81.0-99.0); MEAN CORPUSCULAR HEMOGLOBIN 32.3 pg (27.0-31.0); MEAN CORPUSCULAR HGB CONC 34.7 g/dL (33.0-37.0); MEAN PLATELET VOLUME 7.1 fL (7.2-11.7); MONO # 0.4 K/uL (0.0-0.8); MONO % 4.3 % (0.0-10.0); NEUT # 7.8 K/uL (1.8-7.0); NEUT % 78.5 % (50.0-75.0); RBC 3.34 Mil/uL (3.80-5.20); RED CELL DISTRIBUTION WIDTH 13.9 % (11.5-14.5)
[2018-06-09 12:15] LABS: ALB/GLOB RATIO 1.9 (1.0-2.1); ALBUMIN 3.9 g/dL (3.5-5.0); CALCIUM 8.4 mg/dl (8.6-10.4)
--- NOTE | 2018-06-09 12:32 | US ---
Date of service: 06/08/2018 HISTORY: Unspecified abdominal pain. LMP 05/06/2018. COMPARISON: 06/08/2018. CT abdomen and pelvis. TECHNIQUE: Transabdominal, transvaginal. Real -time technique with 2D, duplex and color Doppler. FINDINGS: UTERUS: Measures 4.2 x 5.3 x 8.5 cm. Normal in size, heterogeneous echo characteristics. 1. Densely calcified subserosal fibroid anteriorly 2.2 x 2.4 x 2.5 cm. 2. Sub mucosal fibroid identified posteriorly adjacent to the endometrial echo complex 4 x 6 x 6 mm. ENDOMETRIUM: Measures 12.1 mm in diameter. No ultrasound findings to suggest gestational sac, fluid, debris, mass or polyp or other pathologic process within the endometrium. CERVIX: No cervical abnormality identified. RIGHT OVARY: Measures 3.6 x 5.4 x 5.5 cm. No solid mass. Normal flow. Multiple cysts. Simple cyst 1.9 x 2.3 x 2.5 cm. Complex, multiloculated septated cyst 4.8 x 4.9 cm. LEFT OVARY: Measures 5 x 8 x 8.5 cm. No solid mass. Normal flow. Multiple cysts inseparable from what appears to be unilateral, left hydrosalpinx. The largest cysts measure 3.8 x 3.9 cm and 3.9 x 4.7 cm. Slightly smaller cyst measures 2 x 2.3 cm. FREE FLUID: Trace free fluid identified in the pelvis/cul de sac. OTHER FINDINGS: None. IMPRESSION: Cough myomatous uterus. Bilateral simple and septated/complex cysts. Unilateral, left hydrosalpinx. The findings are consistent with recent CT scan June 08, 2018. Concordant findings (preliminary report) provided by [facility].
--- NOTE | 2018-06-09 13:08 | CP.PCM.PN ---
Objective - Vital Signs/Intake and Output Vital Signs (last 24 hours): Temp Pulse Resp BP Pulse Ox 98.1 F 79 20 167/103 H 98 06/09/18 08:37 06/09/18 08:37 06/09/18 08:37 06/09/18 08:37 06/09/18 08:37 - Medications Medications: Current Medications Alprazolam (Xanax) 0.5 mg PO TID PRN PRN Reason: Anxiety Amlodipine Besylate (Norvasc) 10 mg PO DAILY [facility] Last Admin: 06/09/18 10:57 Dose: Not Given Cinacalcet (Sensipar) 30 mg PO 1800 [facility] Last Admin: 06/08/18 20:00 Dose: 30 mg Clonidine HCl (Catapres) 0.3 mg PO BID [facility] Last Admin: 06/09/18 10:58 Dose: 0.3 mg Heparin Sodium (Porcine) (Heparin) 5,000 units SC Q12 [facility] Last Admin: 06/09/18 11:00 Dose: 5,000 units Hydralazine HCl (Apresoline) 100 mg PO BID [facility] Last Admin: 06/09/18 10:58 Dose: Not Given Labetalol HCl (Normodyne) 300 mg PO BID [facility] Last Admin: 06/09/18 10:58 Dose: 300 mg Morphine Sulfate (Morphine) 2 mg IVP Q4 PRN PRN Reason: Pain, moderate (4-7) Last Admin: 06/09/18 10:50 Dose: 2 mg Pantoprazole Sodium (Protonix Inj) 40 mg IVP DAILY [facility] Last Admin: 06/09/18 11:00 Dose: 40 mg Zolpidem Tartrate (Ambien) 5 mg PO HS PRN PRN Reason: Insomnia - Labs Labs: 06/09/18 11:31 06/09/18 11:31
--- NOTE | 2018-06-09 14:21 | CARD ---
APPROVED REPORT Date of service: 06/08/2018 EKG Measurement Heart [id number] ID [id number] <Conclusion> Normal sinus rhythm Minimal voltage criteria for LVH, may be normal variant Prolonged QT Abnormal ECG
[2018-06-10 07:05] LABS: BASO # 0.1 K/uL (0.0-0.2); BASO % 0.9 % (0.0-2.0); EOS # 0.1 K/uL (0.0-0.7); EOS % 1.9 % (0.0-4.0); HEMOGLOBIN 10.6 g/dL (11.0-16.0); LYMPH # 1.5 K/uL (1.0-4.3); LYMPH % 20.3 % (20.0-40.0); MEAN CELL VOLUME 92.4 fL (81.0-99.0); MEAN CORPUSCULAR HEMOGLOBIN 31.6 pg (27.0-31.0); MEAN CORPUSCULAR HGB CONC 34.2 g/dL (33.0-37.0); MEAN PLATELET VOLUME 7.3 fL (7.2-11.7); MONO # 0.5 K/uL (0.0-0.8); MONO % 6.5 % (0.0-10.0); NEUT # 5.3 K/uL (1.8-7.0); NEUT % 70.4 % (50.0-75.0); RBC 3.36 Mil/uL (3.80-5.20); RED CELL DISTRIBUTION WIDTH 13.9 % (11.5-14.5); WHITE BLOOD COUNT 7.6 K/uL (4.8-10.8)
[2018-06-10 07:19] LABS: ALB/GLOB RATIO 1.9 (1.0-2.1); ALBUMIN 3.8 g/dL (3.5-5.0); CALCIUM 8.3 mg/dl (8.6-10.4)
[2018-06-10] MEDS: Morphine 4 MG/ML VIAL IVP PRN ×3 (07:30→20:27)
--- NOTE | 2018-06-10 08:57 | CP.PCM.PN ---
Subjective - Date & Time of Evaluation Date of Evaluation: 06/10/18 Time of Evaluation: 07:00 - Subjective Subjective: PGY2- Progress Note for Dr. Zuleta Patient seen and examined at bedside and in no acute distress. Patient says her pain is a 4/10 today. Patient says the pain comes and goes and moves between the upper and lower part of her central abdomen. Patient denies any chest pain, shortness of breath, nausea, vomiting. Patient still has not had a bowel movement, but is passing gas. Objective - Vital Signs/Intake and Output Vital Signs (last 24 hours): Temp Pulse Resp BP Pulse Ox 97.8 F 62 20 120/67 94 L 06/10/18 00:00 06/10/18 00:00 06/10/18 00:00 06/10/18 00:00 06/10/18 00:00 - Medications Medications: Current Medications Alprazolam (Xanax) 0.5 mg PO TID PRN PRN Reason: Anxiety Amlodipine Besylate (Norvasc) 10 mg PO DAILY [facility] Last Admin: 06/09/18 10:57 Dose: Not Given Cinacalcet (Sensipar) 30 mg PO 1800 [facility] Last Admin: 06/09/18 17:51 Dose: 30 mg Clonidine HCl (Catapres) 0.3 mg PO BID [facility] Last Admin: 06/09/18 17:40 Dose: 0.3 mg Heparin Sodium (Porcine) (Heparin) 5,000 units SC Q12 [facility] Last Admin: 06/09/18 21:31 Dose: 5,000 units Hydralazine HCl (Apresoline) 100 mg PO BID [facility] Last Admin: 06/09/18 17:40 Dose: 100 mg Labetalol HCl (Normodyne) 300 mg PO BID [facility] Last Admin: 06/09/18 17:50 Dose: 300 mg Morphine Sulfate (Morphine) 2 mg IVP Q4 PRN PRN Reason: Pain, moderate (4-7) Last Admin: 06/10/18 07:30 Dose: 2 mg Pantoprazole Sodium (Protonix Inj) 40 mg IVP DAILY [facility] Last Admin: 06/09/18 11:00 Dose: 40 mg Zolpidem Tartrate (Ambien) 5 mg PO HS PRN PRN Reason: Insomnia Last Admin: 06/09/18 22:04 Dose: 5 mg - Labs Labs: 06/10/18 06:53 06/10/18 06:53 - Constitutional Appears: Non-toxic, No Acute Distress - Head Exam Head Exam: ATRAUMATIC, NORMAL INSPECTION, NORMOCEPHALIC - Eye Exam Eye Exam: EOMI, Normal appearance - Neck Exam Neck Exam: Full ROM - Respiratory Exam Respiratory Exam: Clear to Ausculation Bilateral, NORMAL BREATHING PATTERN. absent: Rales, Rhonchi, Wheezes, Respiratory Distress, Stridor - Cardiovascular Exam Cardiovascular Exam: REGULAR RHYTHM, RRR, +S1, +S2 - GI/Abdominal Exam GI & Abdominal Exam: Soft, Normal Bowel Sounds. absent: Tenderness - Extremities Exam Extremities Exam: Full ROM. absent: Pedal Edema Additional comments: left arm with multiple nonfunctional av fistulas - Back Exam Back Exam: NORMAL INSPECTION - Neurological Exam Neurological Exam: Alert, Awake, Oriented x3 - Psychiatric Exam Psychiatric exam: Normal Affect, Normal Mood - Skin Skin Exam: Intact, Normal Color, Warm Assessment and Plan - Assessment and Plan (Free Text) Assessment: Abdominal pain Abd CT (06/08/18): Heterogeneous appearance of the uterus including calcified uterine mass presumably due to fibroid. Multiple bilateral adnexal masses are identified, possibly cysts. Recommend correlation with pelvic u/s. Differential diagnosis includes ovarian neoplasm, multiple ovarian cyst, tubo-ovarian abscess. Diffuse increased attenuation of the osseous structures may reflect renal osteodystrophy. Moderate- sized hiatal hernia. Moderate constipation. abd/ pelvis / transvag u/s: myomatous uterus, bilateral simple and septated/complex cysts. Unilateral, left hydrosalpinx. OBGYN consulted, help appreciated GI consulted, Dr. Jensen, help appreciated Rocephin 250mg IM injection and doxycycline 100mg po q12h Protonix 40mg ivp daily Morphine 2mg ivp q4h prn lactulose prn CA 125: 6.6 CEA: 5.2 HTN Clonidine .3mg po BID Norvasc 10mg po daily Apresoline 100mg po BID Labetalol 300mg po BID Depression/Anxiety Xanax .5mg po TID PRN Insomnia Ambien 5mg po HS PRN Prophylactic Measures SCDs Protonix 40mg ivp daily renal diet Discussed with Dr. Zuleta.
--- NOTE | 2018-06-10 09:55 | CP.PCM.CON ---
<Rosi Snow JackieSoraya - Last Filed: 06/10/18 14:32> History of Present Illness - History of Present Illness History of Present Illness: Consult note for Dr. Gunter Patient is a 38 year old female with a past medical history of anemia, HTN, CHF, ESRD on HD, anxiety/depression, who presented to the hospital with complaints of abdominal pain, nausea, and vomiting. She reports having this pain since she was diagnosed with ESRD in 2017, however, this episode started approximately 4-5 days ago. She went to the ER twice since this past Thursday and was given morphine for the pain. She says the only thing that makes her feel better is the morphine. When she first presented, the pain was in the upper abdomen bilaterally, but currently the pain in in the lower quadrants bilaterally ("the pain changes and moves around"). She currently denies nausea and vomiting (last episode was 2 days ago), fevers, headaches, dizziness, headaches, chest pain, dyspnea, leg pain, vaginal bleeding, vaginal discharge. The patient denies having a history of fibroids, cysts, STIs, pregnancies, and has never followed an OBGYN or had a pap smear. She reports having a month-long menstruation about 10 years ago, but did not see a doctor. She says that since being diagnosed with ESRD in 2017, her menstrual cycles have been irregular in frequency (but normal blood loss). She is not currently sexually active (x7 months) and does not use contraception when she is sexually active as she was "with the same person for 16 years". She admits to chronic constipation, has a BM every 4-5 days and has to strain. She does not remember when her last BM was, but states is was "days ago". PMD: Dr. Zuleta PMHx: anemia, HTN, CHF, ESRD on HD, anxiety/depression OBGYNHx: denies hx of pregnancies, miscarriages, abortions, STIs, fibroids, cysts SurgHx: Cholecystectomy, AVF, permacath SocHx: smokes 1 cigarette a day and then uses her vaporizer; smoking hx x20+yrs; denies etoh and drug use. Allergies: NKDA Medications: Amlodipine 10mg, Hydralazine, Labetalol, Clonindine 0.3mg, Xanax 0.5mg TID, Percocet 5/325mg Q4-6 hrs, Sensipar (does not know all dosages/frequency) Review of Systems - Constitutional Constitutional: absent: Chills, Fever, Headache, Weakness - EENT Ears: absent: Dizziness - Cardiovascular Cardiovascular: absent: Chest Pain, Dyspnea, Edema, Leg Edema, Lightheadedness, Palpitations, Pedal Edema - Respiratory Respiratory: absent: Cough, Dyspnea, Hemoptysis - Gastrointestinal Gastrointestinal: Abdominal Pain (diffuse, sharp), Constipation. absent: Diarrhea, Hematemesis, Hematochezia, Nausea, Vomiting - Genitourinary Genitourinary: absent: Change in Urinary Stream, Difficulty Urinating, Dysuria, Hematuria - Reproductive: Female Reproductive:Female: Menses Variable. absent: Abnormal Vaginal Bleeding, Pelvic Pain, Vaginal Discharge, Vaginal Odor - Neurological Neurological: absent: Dizziness, Headaches - Endocrine Endocrine: absent: Palpitations - Hematologic/Lymphatic Hematologic: absent: Lymphadenopathy Past Patient History - Infectious Disease Hx of Infectious Diseases: None - Past Medical History & Family History Past Medical History?: Yes - Past Social History Smoking Status: Current Some Days Smoker - CARDIAC Hx Congestive Heart Failure: Yes Hx Hypertension: Yes Hx Peripheral Edema: Yes - PULMONARY Hx Pneumonia: Yes - NEUROLOGICAL Hx Neurological Disorder: No - HEENT Hx HEENT Problems: Yes Other/Comment: wears glasses - RENAL Hx Chronic Kidney Disease: Yes Hx Dialysis: Yes Type of Dialysis Access: rt chest permacath Date of Last Dialysis Treatment: 06/07/18 Hx Kidney Stones: Yes - ENDOCRINE/METABOLIC Hx Endocrine Disorders: No - HEMATOLOGICAL/ONCOLOGICAL Hx Anemia: Yes - INTEGUMENTARY Hx Dermatological Problems: Yes Other/Comment: SCARRING TO LEFT UPPER ARM DUE TO PLACEMENT OF SHUNT. NF.3X HAD S URGERY. - MUSCULOSKELETAL/RHEUMATOLOGICAL Hx Arthritis: Yes (L HIP) Hx Falls: No - GASTROINTESTINAL Hx Gall Bladder Disease: Yes (CHOLECYSTECTOMY) Hx Pancreatitis: Yes - GENITOURINARY/GYNECOLOGICAL Hx Genitourinary Disorders: Yes - PSYCHIATRIC Hx Anxiety: Yes Hx Depression: Yes Hx Substance Use: No - SURGICAL HISTORY Hx Cholecystectomy: Yes Other/Comment: 2 failed fistula left arm,Left wrist fistula not working 2 weeks ago - ANESTHESIA Hx Anesthesia: Yes Hx Anesthesia Reactions: No Hx Malignant Hyperthermia: No Meds Allergies/Adverse Reactions: Allergies Allergy/AdvReac Type Severity Reaction Status Date / Time No Known Allergies Allergy Verified 06/06/18 08:06 - Medications Medications: Current Medications Alprazolam (Xanax) 0.5 mg PO TID PRN PRN Reason: Anxiety Amlodipine Besylate (Norvasc) 10 mg PO DAILY [facility] Last Admin: 06/09/18 10:57 Dose: Not Given Cinacalcet (Sensipar) 30 mg PO 1800 [facility] Last Admin: 06/09/18 17:51 Dose: 30 mg Clonidine HCl (Catapres) 0.3 mg PO BID [facility] Last Admin: 06/09/18 17:40 Dose: 0.3 mg Heparin Sodium (Porcine) (Heparin) 5,000 units SC Q12 [facility] Last Admin: 06/09/18 21:31 Dose: 5,000 units Hydralazine HCl (Apresoline) 100 mg PO BID [facility] Last Admin: 06/09/18 17:40 Dose: 100 mg Labetalol HCl (Normodyne) 300 mg PO BID [facility] Last Admin: 06/09/18 17:50 Dose: 300 mg Morphine Sulfate (Morphine) 2 mg IVP Q4 PRN PRN Reason: Pain, moderate (4-7) Last Admin: 06/10/18 07:30 Dose: 2 mg Pantoprazole Sodium (Protonix Inj) 40 mg IVP DAILY [facility] Last Admin: 06/09/18 11:00 Dose: 40 mg Zolpidem Tartrate (Ambien) 5 mg PO HS PRN PRN Reason: Insomnia Last Admin: 06/09/18 22:04 Dose: 5 mg Physical Exam - Constitutional Appears: No Acute Distress - Head Exam Head Exam: ATRAUMATIC, NORMAL INSPECTION - Eye Exam Eye Exam: EOMI, Normal appearance - ENT Exam ENT Exam: Mucous Membranes Moist - Respiratory Exam Respiratory Exam: Clear to Auscultation Bilateral, NORMAL BREATHING PATTERN. absent: Rales, Rhonchi, Wheezes, Respiratory Distress - Cardiovascular Exam Cardiovascular Exam: REGULAR RHYTHM, +S1, +S2 - GI/Abdominal Exam GI & Abdominal Exam: Normal Bowel Sounds, Soft, Tenderness (bilateral lower quadrant). absent: Distended, Firm, Guarding, Organomegaly Additional comments: no lymphadenopathy palpated - Exam Bimanual exam: NORMAL BIMANUAL EXAM. absent: Adenexal Mass, Cervical Motion Tendernes, Uterine Tenderness - Extremities Exam Extremities exam: Positive for: normal inspection, pedal pulses present. Negative for: calf tenderness, pedal edema, tenderness - Back Exam Back exam: absent: CVA tenderness (L), CVA tenderness (R) - Neurological Exam Neurological exam: Alert, Oriented x3 - Psychiatric Exam Psychiatric exam: Normal Affect, Normal Mood - Skin Skin Exam: Dry, Intact, Normal Color, Warm Results - Vital Signs Recent Vital Signs: Last Vital Signs Temp 97.8 F 06/10/18 00:00 Pulse 62 06/10/18 00:00 Resp 20 06/10/18 00:00 BP 120/67 06/10/18 00:00 Pulse Ox 94 L 06/10/18 00:00 - Labs Result Diagrams: 06/10/18 06:53 06/10/18 06:53 Labs: Laboratory Results - last 24 hr 06/09/18 06/09/18 06/09/18 11:31 11:31 11:31 WBC 10.0 RBC 3.34 L Hgb 10.8 L Hct 31.2 L MCV 93.3 MCH 32.3 H MCHC 34.7 RDW 13.9 Plt Count 282 MPV 7.1 L Neut % (Auto) 78.5 H Lymph % (Auto) 15.8 L [place] % (Auto) 4.3 Eos % (Auto) 0.7 Baso % (Auto) 0.7 Neut # (Auto) 7.8 H Lymph # (Auto) 1.6 [place] # (Auto) 0.4 Eos # (Auto) 0.1 Baso # (Auto) 0.1 Sodium 131 L Potassium 3.4 L Chloride 99 Carbon Dioxide 24 Anion Gap 12 BUN 30 H Creatinine 3.1 H Est GFR ( Amer) 20 Est GFR (Non-Af Amer) 17 Random Glucose 130 H Hemoglobin A1c 4.8 Calcium 8.4 L Phosphorus 3.1 Magnesium 2.2 Total Bilirubin 0.3 AST 19 ALT 26 Alkaline Phosphatase 86 Total Protein 6.0 L Albumin 3.9 Globulin 2.1 L Albumin/Globulin Ratio 1.9 Carcinoembryonic Ag CA 125 Antigen 06/09/18 06/10/18 06/10/18 13:58 06:53 06:53 WBC 7.6 RBC 3.36 L Hgb 10.6 L Hct 31.1 L MCV 92.4 MCH 31.6 H MCHC 34.2 RDW 13.9 Plt Count 260 MPV 7.3 Neut % (Auto) 70.4 Lymph % (Auto) 20.3 [place] % (Auto) 6.5 Eos % (Auto) 1.9 Baso % (Auto) 0.9 Neut # (Auto) 5.3 Lymph # (Auto) 1.5 [place] # (Auto) 0.5 Eos # (Auto) 0.1 Baso # (Auto) 0.1 Sodium 133 Potassium 3.5 L Chloride 97 L Carbon Dioxide 29 Anion Gap 11 BUN 23 H Creatinine 2.4 H Est GFR ( Amer) 27 Est GFR (Non-Af Amer) 22 Random Glucose 96 D Hemoglobin A1c Calcium 8.3 L Phosphorus 3.2 Magnesium 2.1 Total Bilirubin 0.3 AST 17 ALT 22 Alkaline Phosphatase 80 Total Protein 5.8 L Albumin 3.8 Globulin 2.0 L Albumin/Globulin Ratio 1.9 Carcinoembryonic Ag 5.2 H CA 125 Antigen 6.6 Assessment & Plan - Assessment and Plan (Free Text) Plan: 38 year old female w/PMHx Anemia, HTN, ESRD on HD, anxiety/depression, who presents with complaints of abdominal pain, nausea, and vomiting. Imaging: - Pelvic US: myomatous uterus, bilateral single and sepatated/complex cysts, unilateral left hydrosalpinx; other findings listed below * Uterus: Measures 4.2 x 5.3 x 8.5 cm. Normal in size, heterogeneous echo c haracteristics. Densely calcified subserosal fibroid anteriorly 2.2 x 2.4 x 2.5 cm. Sub mucosal fibroid identified posteriorly adjacent to the endometrial echo complex 4 x 6 x 6 mm. * Right ovary: Measures 3.6 x 5.4 x 5.5 cm. No solid mass. Normal flow. Multiple cysts. Simple cyst 1.9 x 2.3 x 2.5 cm. Complex, multiloculated septated cyst 4.8 x 4.9 cm. * Left ovary: Measures 5 x 8 x 8.5 cm. No solid mass. Normal flow. Multiple cysts inseparable from what appears to be unilateral, left hydrosalpinx. The largest cysts measure 3.8 x 3.9 cm and 3.9 x 4.7 cm. Slightly smaller cyst measures 2 x 2.3 cm. Plan: - Abdominal pain possibly secondary to constipation and/or GI related. - Continue GI workup per Dr. Jensen. - Recommended to the patient that she establish outpatient care with a gynecolog ist for further care and follow up regarding fibroid and cysts. - Continue pain management per primary team. Case discussed with Dr. Jani Urena, PGY2 <Osiris Gunter - Last Filed: 06/10/18 15:35> Meds - Medications Medications: Current Medications Alprazolam (Xanax) 0.5 mg PO TID PRN PRN Reason: Anxiety Amlodipine Besylate (Norvasc) 10 mg PO DAILY [facility] Last Admin: 06/10/18 10:23 Dose: 10 mg Ceftriaxone Sodium (Rocephin) 250 mg IM ONCE ONE; Protocol Stop: 06/10/18 14:03 Cinacalcet (Sensipar) 30 mg PO 1800 [facility] Last Admin: 06/09/18 17:51 Dose: 30 mg Clonidine HCl (Catapres) 0.3 mg PO BID [facility] Last Admin: 06/10/18 10:23 Dose: 0.3 mg Doxycycline Hyclate (Doryx) 100 mg PO Q12H [facility]; Protocol Last Admin: 06/10/18 14:31 Dose: 100 mg Heparin Sodium (Porcine) (Heparin) 5,000 units SC Q12 [facility] Last Admin: 06/10/18 10:23 Dose: 5,000 units Hydralazine HCl (Apresoline) 100 mg PO BID [facility] Last Admin: 06/10/18 10:22 Dose: 100 mg Labetalol HCl (Normodyne) 300 mg PO BID [facility] Last Admin: 06/10/18 10:23 Dose: 300 mg Lactulose (Enulose) 20 gm PO ONCE PRN PRN Reason: Constipation Last Admin: 06/10/18 14:51 Dose: 20 gm Morphine Sulfate (Morphine) 2 mg IVP Q4 PRN PRN Reason: Pain, moderate (4-7) Last Admin: 06/10/18 07:30 Dose: 2 mg Pantoprazole Sodium (Protonix Inj) 40 mg IVP DAILY [facility] Last Admin: 06/10/18 10:24 Dose: 40 mg Zolpidem Tartrate (Ambien) 5 mg PO HS PRN PRN Reason: Insomnia Last Admin: 06/09/18 22:04 Dose: 5 mg Results - Vital Signs Recent Vital Signs: Last Vital Signs Temp 98.3 F 06/10/18 08:00 Pulse 65 06/10/18 08:00 Resp 20 06/10/18 08:00 BP 138/84 06/10/18 08:00 Pulse Ox 96 06/10/18 08:00 - Labs Result Diagrams: 06/10/18 06:53 06/10/18 06:53 Labs: Laboratory Results - last 24 hr 06/09/18 06/10/18 06/10/18 13:58 06:53 06:53 WBC 7.6 RBC 3.36 L Hgb 10.6 L Hct 31.1 L MCV 92.4 MCH 31.6 H MCHC 34.2 RDW 13.9 Plt Count 260 MPV 7.3 Neut % (Auto) 70.4 Lymph % (Auto) 20.3 [place] % (Auto) 6.5 Eos % (Auto) 1.9 Baso % (Auto) 0.9 Neut # (Auto) 5.3 Lymph # (Auto) 1.5 [place] # (Auto) 0.5 Eos # (Auto) 0.1 Baso # (Auto) 0.1 Sodium 133 Potassium 3.5 L Chloride 97 L Carbon Dioxide 29 Anion Gap 11 BUN 23 H Creatinine 2.4 H Est GFR ( Amer) 27 Est GFR (Non-Af Amer) 22 Random Glucose 96 D Calcium 8.3 L Phosphorus 3.2 Magnesium 2.1 Total Bilirubin 0.3 AST 17 ALT 22 Alkaline Phosphatase 80 Total Protein 5.8 L Albumin 3.8 Globulin 2.0 L Albumin/Globulin Ratio 1.9 Carcinoembryonic Ag 5.2 H CA 125 Antigen 6.6 Attending/Attestation - Attestation I have personally seen and examined this patient.: Yes I have fully participated in the care of the patient.: Yes I have reviewed all pertinent clinical information: Yes Notes (Text): 06/10/18 15:30 I agree with the above as documented. It was emphasized at great length, the prudence of establishing a relationship with a credit adjuster in order to effectively manage the pelvic ultrasound findings. More importantly, a preventative approach to her health care from a gynecological perspective was discussed. Patient expressed an understanding and has stated she will address this upon discharge. Patient is clinically stable. Rest of care, as per primary medical team. 06/10/18 15:34 Thank you for the pleasure of this consultation.
[2018-06-10] MEDS: Labetalol Hydrochloride 300 mg Tab PO SCH ×2 (10:23→18:25)
--- NOTE | 2018-06-10 11:12 | CP.PCM.PN ---
Subjective - Date & Time of Evaluation Date of Evaluation: 06/10/18 Time of Evaluation: 11:09 - Subjective Subjective: s/p dialysis 06/09- tolerated well seen by call person for calcifications in uterus abdominal pains better BP controlled has been afebrile no n, v, diarrhea Objective - Vital Signs/Intake and Output Vital Signs (last 24 hours): Temp Pulse Resp BP Pulse Ox 98.3 F 65 20 138/84 96 06/10/18 08:00 06/10/18 08:00 06/10/18 08:00 06/10/18 08:00 06/10/18 08:00 - Medications Medications: Current Medications Alprazolam (Xanax) 0.5 mg PO TID PRN PRN Reason: Anxiety Amlodipine Besylate (Norvasc) 10 mg PO DAILY [facility] Last Admin: 06/10/18 10:23 Dose: 10 mg Cinacalcet (Sensipar) 30 mg PO 1800 [facility] Last Admin: 06/09/18 17:51 Dose: 30 mg Clonidine HCl (Catapres) 0.3 mg PO BID [facility] Last Admin: 06/10/18 10:23 Dose: 0.3 mg Heparin Sodium (Porcine) (Heparin) 5,000 units SC Q12 [facility] Last Admin: 06/10/18 10:23 Dose: 5,000 units Hydralazine HCl (Apresoline) 100 mg PO BID [facility] Last Admin: 06/10/18 10:22 Dose: 100 mg Labetalol HCl (Normodyne) 300 mg PO BID [facility] Last Admin: 06/10/18 10:23 Dose: 300 mg Morphine Sulfate (Morphine) 2 mg IVP Q4 PRN PRN Reason: Pain, moderate (4-7) Last Admin: 06/10/18 07:30 Dose: 2 mg Pantoprazole Sodium (Protonix Inj) 40 mg IVP DAILY [facility] Last Admin: 06/10/18 10:24 Dose: 40 mg Zolpidem Tartrate (Ambien) 5 mg PO HS PRN PRN Reason: Insomnia Last Admin: 06/09/18 22:04 Dose: 5 mg - Labs Labs: 06/10/18 06:53 06/10/18 06:53 - Constitutional Appears: No Acute Distress, Chronically Ill - Head Exam Head Exam: ATRAUMATIC, NORMAL INSPECTION - Eye Exam Eye Exam: EOMI, Normal appearance - Neck Exam Neck Exam: Normal Inspection. absent: Tenderness - Respiratory Exam Respiratory Exam: Clear to Ausculation Bilateral, NORMAL BREATHING PATTERN - Cardiovascular Exam Cardiovascular Exam: REGULAR RHYTHM, +S1 - GI/Abdominal Exam GI & Abdominal Exam: Soft. absent: Tenderness - Extremities Exam Extremities Exam: Normal Inspection. absent: Tenderness - Neurological Exam Neurological Exam: Awake, CN II-XII Intact - Skin Skin Exam: Dry, Warm Assessment and Plan (1) Abdominal pain Status: Acute (2) Benign hypertensive kidney disease with end stage renal disease Status: Acute (3) ESRD (end stage renal disease) Status: Acute - Assessment and Plan (Free Text) Plan: Workup as per medicine dialysis MWF, change to 3K bath
[2018-06-10] MEDS ORDERED: cefTRIAXone (Rocephin) 250 mg Inj IM ONE ×2 (14:02→16:54)
--- NOTE | 2018-06-10 14:27 | PN ---
DATE: 06/10/2018 LOCATION: 357, bed B. SUBJECTIVE: This is a 38-year-old female seen and examined in rounds without any significant reported clinical changes or evidence of active bleeding with less abdominal pain as well as less bowel movement. No reported active bleeding. The entire chart is reviewed including but not limited to the most recent lab results with today's lab of 10.6 of hemoglobin, hematocrit 31.1, potassium 3.5, BUN 23, creatinine 2.4, calcium 8.3, albumin 5.8. The most recently done abdominal and pelvic CAT scan report is seen as well as an ultrasound. The patient reported no actual vaginal bleeding recently. PHYSICAL EXAMINATION: GENERAL: A 38-year-old female, awake, alert and oriented VITAL SIGNS: Afebrile with pulse 64, respiratory 20-22 and the blood pressure of 124/82. HEENT: Showed pale dry oral mucous membrane. Nonicteric sclerae. LUNGS: Few scattered crepitation. Decreased air entry at bases. HEART: Positive S1 and S2. ABDOMEN: Soft with mild generalized tenderness. No mass or organomegaly. No rebound tenderness or guarding. EXTREMITIES: Without edema, clubbing or cyanosis. IMPRESSION: 1. Anemia that could be secondary to an apparent lesion versus gastrointestinal blood loss, upper versus lower. 2. Abnormal CAT scan of the abdomen and pelvis. 3. Known history of severe anxiety syndrome with depression, insomnia, hypertension. 4. Re-exacerbation of peptic ulcer disease. SUGGESTIONS: 1. Continue current management. 2. Follow up on cancer markers. 3. The patient may need endoscopic evaluation of the GI tract if her symptoms persist. 4. Renal consultation. Shon Brambila MD
[2018-06-11 07:35] LABS: BASO # 0.1 K/uL (0.0-0.2); EOS # 0.2 K/uL (0.0-0.7); HEMOGLOBIN 10.9 g/dL (11.0-16.0); LYMPH # 1.5 K/uL (1.0-4.3); LYMPH % 18.2 % (20.0-40.0); MEAN CELL VOLUME 93.4 fL (81.0-99.0); MEAN CORPUSCULAR HEMOGLOBIN 32.3 pg (27.0-31.0); MEAN CORPUSCULAR HGB CONC 34.5 g/dL (33.0-37.0); MEAN PLATELET VOLUME 7.7 fL (7.2-11.7); MONO # 0.5 K/uL (0.0-0.8); MONO % 5.9 % (0.0-10.0); NEUT # 6.1 K/uL (1.8-7.0); NEUT % 72.9 % (50.0-75.0); RBC 3.38 Mil/uL (3.80-5.20); RED CELL DISTRIBUTION WIDTH 13.7 % (11.5-14.5); WHITE BLOOD COUNT 8.3 K/uL (4.8-10.8)
[2018-06-11 08:04] LABS: ALB/GLOB RATIO 1.7 (1.0-2.1); ALBUMIN 3.7 g/dL (3.5-5.0); CALCIUM 8.4 mg/dl (8.6-10.4)
--- NOTE | 2018-06-11 09:09 | CP.PCM.PN ---
Subjective - Date & Time of Evaluation Date of Evaluation: 06/11/18 Time of Evaluation: 09:09 - Subjective Subjective: Progress Note for Dr. Zuleta Patient seen and examined at bedside. She had a bowel movement yesterday evening and since then her abdominal had improved. Otherwise she denies fever, chills, shortness of breath, chest pain, nausea, vomiting, or urinary symptoms. Objective - Vital Signs/Intake and Output Vital Signs (last 24 hours): Temp Pulse Resp BP Pulse Ox 98.0 F 60 20 122/65 100 06/11/18 08:00 06/11/18 08:00 06/11/18 08:00 06/11/18 08:00 06/11/18 08:00 Intake and Output: 06/11/18 06/11/18 06:59 18:59 Intake Total 800 Balance 800 - Medications Medications: Current Medications Alprazolam (Xanax) 0.5 mg PO TID PRN PRN Reason: Anxiety Last Admin: 06/10/18 22:29 Dose: 0.5 mg Amlodipine Besylate (Norvasc) 10 mg PO DAILY [facility] Last Admin: 06/10/18 10:23 Dose: 10 mg Cinacalcet (Sensipar) 30 mg PO 1800 [facility] Last Admin: 06/10/18 18:03 Dose: 30 mg Clonidine HCl (Catapres) 0.3 mg PO BID [facility] Last Admin: 06/10/18 19:11 Dose: 0.3 mg Doxycycline Hyclate (Doryx) 100 mg PO Q12H [facility]; Protocol Last Admin: 06/10/18 14:31 Dose: 100 mg Heparin Sodium (Porcine) (Heparin) 5,000 units SC Q12 [facility] Last Admin: 06/10/18 22:27 Dose: 5,000 units Hydralazine HCl (Apresoline) 100 mg PO BID [facility] Last Admin: 06/10/18 19:12 Dose: 100 mg Labetalol HCl (Normodyne) 300 mg PO BID [facility] Last Admin: 06/10/18 18:25 Dose: 300 mg Lactulose (Enulose) 20 gm PO ONCE PRN PRN Reason: Constipation Last Admin: 06/10/18 14:51 Dose: 20 gm Morphine Sulfate (Morphine) 2 mg IVP Q4 PRN PRN Reason: Pain, moderate (4-7) Last Admin: 06/10/18 20:27 Dose: 2 mg Pantoprazole Sodium (Protonix Inj) 40 mg IVP DAILY [facility] Last Admin: 06/10/18 10:24 Dose: 40 mg Zolpidem Tartrate (Ambien) 5 mg PO HS PRN PRN Reason: Insomnia Last Admin: 06/09/18 22:04 Dose: 5 mg - Labs Labs: 06/11/18 07:21 06/11/18 07:21 - Additional Findings Additional findings: - Constitutional Appears: Non-toxic, No Acute Distress - Head Exam Head Exam: ATRAUMATIC, NORMAL INSPECTION, NORMOCEPHALIC - Eye Exam Eye Exam: EOMI, Normal appearance - Neck Exam Neck Exam: Full ROM - Respiratory Exam Respiratory Exam: Clear to Ausculation Bilateral, NORMAL BREATHING PATTERN. absent: Rales, Rhonchi, Wheezes, Respiratory Distress, Stridor - Cardiovascular Exam Cardiovascular Exam: REGULAR RHYTHM, RRR, +S1, +S2 - GI/Abdominal Exam GI & Abdominal Exam: Soft, Normal Bowel Sounds. absent: Tenderness - Extremities Exam Extremities Exam: Full ROM. absent: Pedal Edema Additional comments: left arm with multiple nonfunctional av fistulas - Back Exam Back Exam: NORMAL INSPECTION - Neurological Exam Neurological Exam: Alert, Awake, Oriented x3 - Psychiatric Exam Psychiatric exam: Normal Affect, Normal Mood - Skin Skin Exam: Intact, Normal Color, Warm Assessment and Plan - Assessment and Plan (Free Text) Assessment: Abdominal pain Improved after having a bowel movement Abd CT (06/08/18): Heterogeneous appearance of the uterus including calcified uterine mass presumably due to fibroid. Multiple bilateral adnexal masses are identified, possibly cysts. Recommend correlation with pelvic u/s. Differential diagnosis includes ovarian neoplasm, multiple ovarian cyst, tubo-ovarian abscess. Diffuse increased attenuation of the osseous structures may reflect renal osteodystrophy. Moderate- sized hiatal hernia. Moderate constipation. abd/ pelvis / transvag u/s: myomatous uterus, bilateral simple and septated/complex cysts. Unilateral, left hydrosalpinx. OBGYN consulted, help appreciated GI consulted, Dr. Jensen, help appreciated Rocephin 250mg IM injection and doxycycline 100mg po q12h Protonix 40mg ivp daily Morphine 2mg ivp q4h prn lactulose prn CA 125: 6.6 CEA: 5.2 HTN Clonidine .3mg po BID Norvasc 10mg po daily Apresoline 100mg po BID Labetalol 300mg po BID Depression/Anxiety Xanax .5mg po TID PRN Insomnia Ambien 5mg po HS PRN Prophylactic Measures SCDs Protonix 40mg ivp daily renal diet Discussed with Dr. Zuleta Patient is Medically stable to be discharged home after dialysis
[2018-06-11] MEDS: Labetalol Hydrochloride 300 mg Tab PO SCH (09:40)
--- NOTE | 2018-06-11 13:12 | CP.PCM.PN ---
Subjective - Date & Time of Evaluation Date of Evaluation: 06/11/18 Time of Evaluation: 13:09 - Subjective Subjective: Seen at dialysis to UF 2900ml BP controlled labs reviewed- stable doing better now- admitting symptoms likely due to dialysis non-compliance and fluid retention Objective - Vital Signs/Intake and Output Vital Signs (last 24 hours): Temp Pulse Resp BP Pulse Ox 98.5 F 62 18 147/98 H 100 06/11/18 10:25 06/11/18 10:25 06/11/18 10:25 06/11/18 11:55 06/11/18 10:25 Intake and Output: 06/11/18 06/11/18 06:59 18:59 Intake Total 800 Balance 800 - Medications Medications: Current Medications Alprazolam (Xanax) 0.5 mg PO TID PRN PRN Reason: Anxiety Last Admin: 06/10/18 22:29 Dose: 0.5 mg Amlodipine Besylate (Norvasc) 10 mg PO DAILY [facility] Last Admin: 06/11/18 09:41 Dose: Not Given Cinacalcet (Sensipar) 30 mg PO 1800 [facility] Last Admin: 06/10/18 18:03 Dose: 30 mg Clonidine HCl (Catapres) 0.3 mg PO BID [facility] Last Admin: 06/11/18 09:40 Dose: Not Given Doxycycline Hyclate (Doryx) 100 mg PO Q12H [facility]; Protocol Last Admin: 06/10/18 14:31 Dose: 100 mg Heparin Sodium (Porcine) (Heparin) 5,000 units SC Q12 [facility] Last Admin: 06/11/18 11:00 Dose: 5,000 units Hydralazine HCl (Apresoline) 100 mg PO BID [facility] Last Admin: 06/11/18 09:40 Dose: Not Given Labetalol HCl (Normodyne) 300 mg PO BID [facility] Last Admin: 06/11/18 09:40 Dose: Not Given Lactulose (Enulose) 20 gm PO ONCE PRN PRN Reason: Constipation Last Admin: 06/10/18 14:51 Dose: 20 gm Morphine Sulfate (Morphine) 2 mg IVP Q4 PRN PRN Reason: Pain, moderate (4-7) Last Admin: 06/10/18 20:27 Dose: 2 mg Pantoprazole Sodium (Protonix Inj) 40 mg IVP DAILY [facility] Last Admin: 06/11/18 11:00 Dose: 40 mg Zolpidem Tartrate (Ambien) 5 mg PO HS PRN PRN Reason: Insomnia Last Admin: 06/09/18 22:04 Dose: 5 mg - Labs Labs: 06/11/18 07:21 06/11/18 07:21 - Constitutional Appears: No Acute Distress, Chronically Ill - Head Exam Head Exam: ATRAUMATIC, NORMAL INSPECTION - Eye Exam Eye Exam: EOMI, Normal appearance - Neck Exam Neck Exam: Normal Inspection. absent: Tenderness - Respiratory Exam Respiratory Exam: Clear to Ausculation Bilateral, NORMAL BREATHING PATTERN - Cardiovascular Exam Cardiovascular Exam: REGULAR RHYTHM, +S1 - GI/Abdominal Exam GI & Abdominal Exam: Soft. absent: Tenderness - Extremities Exam Extremities Exam: Normal Inspection. absent: Tenderness - Neurological Exam Neurological Exam: Alert, CN II-XII Intact - Skin Skin Exam: Dry, Warm Assessment and Plan (1) Abdominal pain Status: Acute (2) Benign hypertensive kidney disease with end stage renal disease Status: Acute (3) ESRD (end stage renal disease) Status: Acute - Assessment and Plan (Free Text) Plan: Stable dialysis now ok for discharge- stressed to patient necessity in dialysis compliance
[2018-06-11 14:11] VITALS: BP 130/50; PULSE 60; RESP 20; TEMP 98; O2SAT 99
== END 2018-06-11 15:58 | disposition home or self-care (01) | DRG 182 ==
LOC: C.ER 15:01 → C.9E 17:44 → C.3T 18:11
PROVIDERS: ADMIT Internal Medicine Pulmonary Disease; ATTEND Internal Medicine Pulmonary Disease
PROC: 5A1D70Z Performance of Urinary Filtration, Intermittent, Less than 6 Hours Per Day (ICD-10-PCS; principal; 2018-06-11)
DX: K21.9 Gastro-esophageal reflux disease without esophagitis (principal); N18.6 End stage renal disease; I50.9 Heart failure, unspecified; I13.2 Hypertensive heart and chronic kidney disease with heart failure and with stage 5 chronic kidney disease, or end stage renal disease; K27.9 Peptic ulcer, site unspecified, unspecified as acute or chronic, without hemorrhage or perforation; K29.70 Gastritis, unspecified, without bleeding; K44.9 Diaphragmatic hernia without obstruction or gangrene; K59.09 Other constipation; I16.0 Hypertensive urgency; K83.8 Other specified diseases of biliary tract; M16.12 Unilateral primary osteoarthritis, left hip; N83.209 Unspecified ovarian cyst, unspecified side; Z82.5 Family history of asthma and other chronic lower respiratory diseases; Z83.3 Family history of diabetes mellitus; D25.9 Leiomyoma of uterus, unspecified; D64.9 Anemia, unspecified; F17.210 Nicotine dependence, cigarettes, uncomplicated; F32.9 Major depressive disorder, single episode, unspecified; F41.9 Anxiety disorder, unspecified; G47.00 Insomnia, unspecified; Z91.15 Patient's noncompliance with renal dialysis

== ENCOUNTER 2018-06-14 17:13 | Emergency (ER) | payer MEDICAID ==
[2018-06-14 17:13] VITALS: BMI 23.5
[2018-06-14 17:39] VITALS: O2SAT 98
[2018-06-14 18:40] LABS: BASO # 0.1 K/uL (0.0-0.2); BASO % 0.7 % (0.0-2.0); EOS # 0.2 K/uL (0.0-0.7); EOS % 2.5 % (0.0-4.0); HEMOGLOBIN 11.4 g/dL (11.0-16.0); LYMPH # 1.7 K/uL (1.0-4.3); LYMPH % 20.8 % (20.0-40.0); MEAN CELL VOLUME 91.9 fL (81.0-99.0); MEAN CORPUSCULAR HEMOGLOBIN 31.9 pg (27.0-31.0); MEAN CORPUSCULAR HGB CONC 34.8 g/dL (33.0-37.0); MONO # 0.7 K/uL (0.0-0.8); MONO % 7.9 % (0.0-10.0); NEUT # 5.7 K/uL (1.8-7.0); NEUT % 68.1 % (50.0-75.0); RBC 3.57 Mil/uL (3.80-5.20); RED CELL DISTRIBUTION WIDTH 13.6 % (11.5-14.5); WHITE BLOOD COUNT 8.4 K/uL (4.8-10.8)
[2018-06-14 18:47] LABS: PROTHROMBIN TIME 10.9 SECONDS (9.7-12.2)
[2018-06-14 19:13] LABS: ALB/GLOB RATIO 1.9 (1.0-2.1); ALBUMIN 4.3 g/dL (3.5-5.0); CALCIUM 8.6 mg/dl (8.6-10.4)
--- NOTE | 2018-06-14 19:14 | RAD ---
Date of service: 06/14/2018 HISTORY: SOB COMPARISON: Comparison made with prior chest radiograph dated 06/08/2018. FINDINGS: Redemonstrated is an in situ right IJ dialysis catheter with tips in the SVC LUNGS: No active pulmonary disease. PLEURA: No significant pleural effusion identified, no pneumothorax apparent. CARDIOVASCULAR: No aortic atherosclerotic calcification present. Heart remains enlarged.. No pulmonary vascular congestion. OSSEOUS STRUCTURES: No significant abnormalities. VISUALIZED UPPER ABDOMEN: Normal. OTHER FINDINGS: None. IMPRESSION: No active disease. Mild cardiomegaly.
--- NOTE | 2018-06-14 19:39 | C.PDOC ---
History Of Present Illness 38 year old female presents to the ED for evaluation of right chest HD catheter dysfunction. Patient currently receives M-W-F dialysis. States she went today, and was told the catheter was not working. Otherwise she denies any other complaints. Time Seen by Provider: 06/14/18 17:36 Chief Complaint (Nursing): Medical Clearance History Per: Patient History/Exam Limitations: no limitations Onset/Duration Of Symptoms: Hrs Current Symptoms Are (Timing): Still Present Past Medical History Reviewed: Historical Data, Nursing Documentation, Vital Signs Vital Signs: Last Vital Signs Temp 98.8 F 06/14/18 17:37 Pulse 65 06/14/18 17:37 Resp 18 06/14/18 17:37 BP 169/112 H 06/14/18 17:37 Pulse Ox 98 06/14/18 17:37 - Medical History PMH: Anemia, Anxiety, Arthritis (L HIP), CHF, Depression, Gall Bladder Disease (CHOLECYSTECTOMY), HTN, Kidney Stones, Pancreatitis, Peripheral Edema, Pneumonia, End Stage Renal Disease (on HD M-W-F), Chronic Kidney Disease Surgical History: Cholecystectomy, Endoscopy - [facility] (06/08/18) (05/25/17) INSERT OF INFUSION DEV INTO PERITON CAV, PERC ENDO APPROACH (11/08/16) INSERTION OF INFUSION DEV INTO SUP VENA CAVA, PERC APPROACH (05/25/17) IRRIGATION OF PERITON CAV USING DIALYSATE, PERC APPROACH (03/28/17) PERFORMANCE OF BILIARY FILTRATION, MULTIPLE (05/25/17) PERFORMANCE OF URINARY FILTRATION, SINGLE (12/31/16) PLAIN RADIOGRAPHY OF BILE DUCTS USING OTHER CONTRAST (11/29/16) REMOVE VAD RESERVOIR FROM UP EXTREM SUBCU/FASCIA, PERC (12/30/17) RESECTION OF GALLBLADDER, PERCUTANEOUS ENDOSCOPIC APPROACH (11/29/16) Family History: States: Unknown Family Hx - Social History Hx Alcohol Use: No Hx Substance Use: No - Immunization History Hx Tetanus Toxoid Vaccination: Yes Hx Influenza Vaccination: Yes Hx Pneumococcal Vaccination: Yes Review Of Systems Constitutional: Negative for: Fever, Chills Cardiovascular: Positive for: Other (Catheter dysfunction). Negative for: Chest Pain Respiratory: Negative for: Cough, Shortness of Breath Gastrointestinal: Negative for: Vomiting, Abdominal Pain Neurological: Negative for: Weakness, Confusion, Altered Mental Status Physical Exam - Physical Exam Appears: Non-toxic, No Acute Distress Skin: Warm, Dry Head: Atraumatic, Normacephalic Eye(s): bilateral: Normal Inspection, PERRL, EOMI Neck: Normal ROM Chest: Other (HD catheter to right upper chest) Cardiovascular: Rhythm Regular, No Murmur Respiratory: Normal Breath Sounds, No Rales, No Rhonchi, No Wheezing Gastrointestinal/Abdominal: Soft, No Tenderness, No Distention Extremity: Bilateral: Atraumatic, Normal Color And Temperature Pulses: Left Radial: Normal, Right Radial: Normal Neurological/Psych: Oriented x3 Gait: Steady ED Course And Treatment - Laboratory Results Result Diagrams: 06/14/18 18:31 06/14/18 18:31 Lab Results: PT 10.9 SECONDS (9.7-12.2) 06/14/18 18:31 INR 1.0 06/14/18 18:31 APTT 29 SECONDS (21-34) 06/14/18 18:31 Total Bilirubin 0.3 mg/dL (0.2-1.3) 06/14/18 18:31 AST 15 U/L (14-36) 06/14/18 18:31 ALT 13 U/L (9-52) 06/14/18 18:31 Alkaline Phosphatase 103 U/L (38-126) 06/14/18 18:31 Total Protein 6.6 g/dL (6.3-8.3) 06/14/18 18:31 Albumin 4.3 g/dL (3.5-5.0) 06/14/18 18:31 Globulin 2.3 gm/dL (2.2-3.9) 06/14/18 18:31 Albumin/Globulin Ratio 1.9 (1.0-2.1) 06/14/18 18:31 O2 Sat by Pulse Oximetry: 98 (RA) Pulse Ox Interpretation: Normal Progress Note: both HD cath tips in R upper chest yahir well, flushed, and TPA dwell for 1 hour. Normal fxn. d/w Dr. Jordan- Ink Maker- labs reviewed, stable for HD tomorrow- pt to call HD center to arrange. Medical Decision Making Medical Decision Makin38 y/o female brought in for HD cath dysfunction Initial Plan: --Blood work with coag panel --EKG --Chest x-ray --Paged surgeon --Will attempt to flush cath with 2mg Cathflo Discussed case w/ Dr. Burgos, recommends flushing it with tPA. Nursing at bedside shows catheter easily flushing. residential treatment specialist is at bedside, plan is still to replace cath Disposition Doctor Will See Patient In The: Office Counseled Patient/Family Regarding: Studies Performed, Diagnosis - Disposition Disposition: HOME/ ROUTINE Disposition Time: 20:03 Condition: GOOD Forms: [facility] (Gabonese) - Clinical Impression Clinical Impression: Dialysis catheter clot or failure - Scribe Statement The provider has reviewed the documentation as recorded by the Funmi Stone Provider Attestation: All medical record entries made by the Funmi were at my direction and personally dictated by me. I have reviewed the chart and agree that the record accurately reflects my personal performance of the history, physical exam, medical decision making, and the department course for this patient. I have also personally directed, reviewed, and agree with the discharge instructions and disposition.
[2018-06-14 20:28] VITALS: BP 161/70; PULSE 77; RESP 20; TEMP 98
--- NOTE | 2018-06-16 14:54 | CARD ---
APPROVED REPORT Date of service: 06/14/2018 EKG Measurement Heart [id number] <Conclusion> Sinus bradycardia LVH with repolarization abnormality T wave abnormality, consider lateral ischemia Abnormal ECG
== END 2018-06-14 20:28 | disposition home or self-care (01) ==
LOC: C.ER 17:13
DX: T82.41XA Breakdown (mechanical) of vascular dialysis catheter, initial encounter (principal)
CPT/HCPCS: 71045; 80053; 85025; 85610; 85730; 93005; 96374; 99283; J1644; J2997